=== PATIENT | male | born 1945 | race Caucasian/White ===

== ENCOUNTER 2019-11-26 11:55 | Emergency (ER) | payer OTHER, MEDICARE, SELFPAY ==
[2019-11-26 12:35] VITALS: BP 152/76; PULSE 79; RESP 16; TEMP 36.9; O2SAT 96; BMI 28.2
--- NOTE | 2019-11-26 12:51 | ECG_ITS ---
[facility] Test Date: 2019-11-26 Pat Name: Marbin Funez Department: Room: Gender: Male Relationship Executive: : 1945 Requested By: Gabi Bolivar Order Number: [id number] Rony MD: Vita Ordonez M.D. Measurements Intervals [place] Rate: 76 P: 39 MA: 174 QRS: 68 QRSD: 86 T: 37 QT: 369 QTc: 415 Interpretive Statements SINUS RHYTHM NONSPECIFIC T-WAVE ABNORMALITY No previous ECG available for comparison Electronically Signed On 11-26-2019 19:17:23 CDT by Vita Ordonez M.D. [id number]
[2019-11-26 12:55] VITALS: RESP 18
--- NOTE | 2019-11-26 12:59 | CTR_ITS ---
PROCEDURE INFORMATION: Exam: CT Abdomen And Pelvis With Contrast Exam date and time: 11/26/2019 1:06 PM Age: 74 years old Clinical indication: Abdominal pain; Localized; Prior surgery; Patient HX: Right sided abd pain. History of bladder cancer. ; Additional info: Rlq, rflank pain TECHNIQUE: Imaging protocol: Computed tomography of the abdomen and pelvis with intravenous contrast. Radiation optimization: All CT scans at this facility use at least one of these dose optimization techniques: automated exposure control; mA and/or kV adjustment per patient size (includes targeted exams where dose is matched to clinical indication); or iterative reconstruction. Contrast material: OMNI 300; Contrast volume: 95 ml; Contrast route: INTRAVENOUS (IV); COMPARISON: No relevant prior studies available. RADIATION DOSE METRICS: Total DLP (mGy-cm): 1074.73 FINDINGS: Lungs: Calcified right lower lobe pulmonary granuloma. Mediastinal space: There is thickening of the distal thoracic esophageal wall which can be due to esophagitis. Liver: Calcified granulomas in a nonenlarged liver. Gallbladder and bile ducts: No calcified gallstones, gallbladder wall thickening, or pericholecystic inflammation. No biliary ductal dilation. Pancreas: No pancreatic mass. No peripancreatic inflammation. No pancreatic ductal dilation. Spleen: Calcified granulomas in a nonenlarged spleen. There is an accessory splenule. Adrenals: No adrenal mass. Kidneys and ureters: No hydronephrosis, nephrolithiasis, or renal mass. Mild bilateral renal parenchymal scarring. Stomach and bowel: No bowel obstruction, colitis or diverticulitis. Appendix: The appendix has a normal caliber with no wall thickening. No periappendiceal stranding. Intraperitoneal space: No ascites or pneumoperitoneum. Vasculature: There is coronary artery disease. No aneurysm. Extensive atherosclerotic plaque particularly in the common iliac arteries where there could be significant luminal stenoses. Lymph nodes: No enlarged lymph nodes. Bladder: There is concentric bladder wall thickening which can be due to chronic bladder outlet obstruction, post bladder cancer treatment changes, and/or cystitis. Reproductive: The prostate is enlarged measuring 5.5 cm transversely. Bones/joints: No acute osseous abnormality. Soft tissues: No acute soft tissue abnormality. CT/CT abdomen pelvis w con* [id number] IMPRESSION: 1. No urinary tract calculus or obstruction. 2. Normal appendix. Radiation Dose CTDIVOL = (mGy): DLP = 1074.73 (mGy-cm)
--- NOTE | 2019-11-26 13:01 | W.ED.GENADLT ---
HPI - General Adult General: Chief complaint: General Medical Stated complaint: R thoracic/rib pain Time Seen by Provider: 11/26/19 12:55 Source: patient Mode of arrival: ambulatory Limitations: no limitations History of Present Illness: HPI narrative: 3 days ago patient complains of some right flank pain. Patient has CVA tenderness to the right side radiating into the lower pelvis. No complaints of fever associated symptoms, just pain. Patient [facility] to [facility] who sent him over to the emergency room for emergent evaluation Onset (ago): day(s) (3) Location: abdomen Radiation: flank Severity: moderate Quality: dull Pain Consistency: intermittent Relieving factors: none Exacerbating factors: none Associated symptoms: Reports no associated symptoms; Deny chest pain, dyspnea, nausea, palpitations or vomiting Treatments prior to arrival: none Review of Systems General: Reports: 10 or more systems reviewed and unremarkable except in HPI and below Const: Denies: fever(s) or chills Eyes: Denies: change in vision or blurry vision Card: Denies: chest pain, palpitations or irregular heart rhythm Resp: Denies: dyspnea, productive cough or wheezing GI: Reports: abdominal pain; Denies: nausea or vomiting : Reports: flank pain PFSH ED PFSH: Medical History Bladder cancer PVD (peripheral vascular disease) Type 2 diabetes mellitus with diabetic polyneuropathy Surgical History H/O heart artery stent Family History Other CAD (coronary artery disease) Cancer Diabetes Hyperlipidemia Hypertension Lung disease Denies family history of Clotting disorder Dementia Psychiatric illness Chronic kidney disease (CKD) Suicide Anesthesia complication Bleeding disorder Family history of premature coronary artery disease Stroke Social History Smoking and tobacco status: former smoker Alcohol intake: never Substance/Drug Use: never Physical Exam Const: COMMON NORMALS: patient oriented x3 and alert GENERAL APPEARANCE: cooperative and well kempt HENMT: COMMON NORMALS: normocephalic, atraumatic, external ears normal and TM's normal bilaterally HEAD & SCALP: normocephalic and atraumatic EXTERNAL EAR: Yes external ears normal TYMPANIC MEMBRANE: TM's normal bilaterally MOUTH: Normal oral and palatal mucosa present Eye: COMMON NORMALS: Equal, round and reactive pupils present GENERAL EYE: appearance normal, both eyes and all related structures PUPIL: Yes Equal, round and reactive pupils present and Yes Pupil accommodation reflex normal Neck/C-Spine: COMMON NORMALS: full ROM, no lymphadenopathy, supple, no JVD, Thyroid normal and No carotid bruits GENERAL: Yes trachea midline THYROID: Thyroid normal, no masses and nontender Lymph: LYMPHATIC: no lymphadenopathy noted Chest: CHEST: Yes Symmetrical chest wall rise Resp: COMMON NORMALS: normal respiratory effort and clear to auscultation bilaterally EFFORT & INSPECTION: Yes able to speak in complete sentences AUSCULTATION: clear to auscultation bilaterally Cardio: COMMON NORMALS: no JVD, regular rhythm and No murmurs present (Cardio) PALPATION: normal PMI RHYTHM: regular rhythm GI: COMMON NORMALS: no masses and no bruits INSPECTION: Yes normal to inspection, Yes central obesity, No scar and No striae AUSCULTATION: Yes normoactive bowel sounds PALPATION: Yes Tenderness to palpation present (GI) Details: RLQ, No Guarding due to palpation present (GI), No Rigid due to palpation, No Hernia present and No Rebound tenderness present PERCUSSION: normal to percussion : COMMON NORMALS: Yes no CVA tenderness (Right flank) BLADDER/KIDNEY EXAM: Yes no CVA tenderness (Right flank) Back/Pelvis: COMMON NORMALS: no CVA tenderness (Right flank) GENERAL BACK: No swelling and No tenderness THORACIC SPINE/UPPER BACK: No pain with ROM Extremity: COMMON NORMALS: normal to inspection, no clubbing, cyanosis or edema and no calf tenderness Neuro: COMMON NORMALS: patient oriented x3 and moves all extremities SENSORIUM/ORIENTATION: Yes alert CRANIAL NERVES: Yes CN normal except as noted GAIT: Yes Normal gait present MOTOR EXAM: 5/5 motor strength present throughout Psych: COMMON NORMALS: mental status grossly normal APPEARANCE: Yes well kempt Skin: COMMON NORMALS: no rashes or lesions noted and turgor normal NARRATIVE SKIN EXAM: Normal coloration of skin GENERAL SKIN EXAM: no rashes or lesions noted and turgor normal LESIONS: no lesions RASHES: no rashes TRAUMA: no lacerations or abrasions Course Reevaluation(s): Reevaluation #1: CT of abdomen and lab work unremarkable for acute process, resting patient says that the pain is improved. He cannot recall any excessive activity that he is done other than getting out of bed and twisting. Discussed close follow-up with his [place] physician should he have any change in symptoms. Will trial NSAID and muscle relaxer with follow-up in 1 to 3 days with [place] physician. Time: 14:26 Vital Signs: Vital signs: Vital Signs Temperature 98.5 F 11/26/19 12:35 Pulse Rate 79 11/26/19 12:35 Respiratory Rate 18 11/26/19 12:55 Blood Pressure 152/76 11/26/19 12:35 Pulse Oximetry 96 11/26/19 12:35 [facility] - General Adult Lab Data: Labs: Lab Results 11/26/19 11/26/19 11/26/19 Range/Units 13:05 13:05 13:20 WBC 9.7 (4.0-10.0) 10^3/ uL RBC 4.57 (4.1-5.3) 10^6/u L Hgb 13.7 (11.7-16.6) g/dL Hct 42.9 (42.0-52.0) % MCV 93.9 (80-94) fL MCH 30.0 (28.0-34.0) pg MCHC 31.9 (30.0-36.0) g/dL RDW 13.6 (12.1-15.1) % Plt Count 300 (130-400) 10^3/c mm MPV 9.1 (7.4-10.4) fL Neut % (Auto) 61.5 % Lymph % (Auto) 21.9 % Clayton % (Auto) 7.9 % Eos % (Auto) 7.7 % Baso % (Auto) 0.8 % Neut # (Auto) 5.99 (1.8-7.7) 10^3/u L Lymph # (Auto) 2.1 (0.8-4.8) 10^3/u L Clayton # (Auto) 0.8 (0.2-0.9) 10^3/u L Eos # (Auto) 0.8 (0.0-0.8) 10^3/u L Baso # (Auto) 0.1 (0.0-0.1) 10^3/u L Nucleated RBC % (a uto) 0 % Nucleated RBCs # 0.0 /100WBC Sodium 134 L (136-145) mmol/L Potassium 4.7 (3.5-5.1) mmol/L Chloride 97 L (98-107) mmol/L Carbon Dioxide 29 (22-29) mmol/L Anion Gap 12.7 (5-19) BUN 11 (8-23) mg/dL Creatinine 0.7 (0.7-1.2) mg/dL Glucose 207 H (65-115) mg/dL Calculated Osmolal ity 280 L (285-295) mOsm/k g Calcium 9.8 (8.5-10.5) mg/dL Total Bilirubin 0.3 (0.15-1.2) mg/dL AST 20 (0-40) U/L ALT 22 (0-41) U/L Alkaline Phosphata se 61 (40-130) IU/L Total Protein 7.2 (6.6-8.7) g/dL Albumin 4.7 (3.5-5.2) g/dL Globulin 2.5 (1.3-4.6) g/dL Lipase 26 (13-60) U/L Urine Color Yellow (Yellow) Urine Appearance Clear (CLEAR) Urine pH 7 (5-7) Ur Specific Gravit y 1.010 (1.005-1.030) Urine Protein Neg (Negative) Urine Glucose (UA) 2+ (Normal) Urine Ketones Negative (Negative) Urine Blood Neg (Negative) Urine Nitrate Negative (Negative) Urine Bilirubin Neg (NEGATIVE) Urine Urobilinogen 1 H (Negative) mg/dL Ur Leukocyte Shannan ase Negative (Negative) Urine RBC 0-4 H (0-2) /hpf Urine WBC 0-4 H (0-5) /hpf Ur Squamous Epith Cells 0-4 H (0-5) Urine Bacteria Trace (NONE) Urine Mucus Trace Discharge Plan Discharge Patient Disposition: Home, Self-Care Clinical Impression: Abdominal muscle pain Condition: Stable Prescriptions: New naproxen 250 mg tablet 250 mg PO Q8H PRN (Reason: pain) 5 Days RF: 0 tizanidine 2 mg capsule 2 mg PO Q8H 7 Days Qty: 21 RF: 0 No Action cholecalciferol (vitamin D3) 25 mcg (1,000 unit) capsule 25 mcg PO DAILY RF: 0 acarbose 100 mg tablet 100 mg PO TID RF: 0 metformin 850 mg tablet 850 mg PO TID RF: 0 lisinopril 40 mg tablet 40 mg PO DAILY RF: 0 aspirin 81 mg tablet,delayed release (DR/EC) 81 mg PO DAILY RF: 0 atorvastatin 80 mg tablet 80 mg PO DAILY RF: 0 cilostazol 50 mg tablet 50 mg PO BID RF: 0 Centrum Silver 0.4-300-250 mg-mcg-mcg tablet 1 tab PO DAILY RF: 0 insulin aspart U-100 [Novolog Flexpen U-100 Insulin] 100 unit/mL (3 mL) insulin pen 5 unit SUBCUT TID RF: 0 insulin glargine 100 unit/mL (3 mL) insulin pen 10 unit SUBCUT DAILY RF: 0 (DME) Sole supports Qty: 1 RF: 0 (DME) Custom orthotics See Rx Instructions .Route .MEDSUPPLY Qty: 1 RF: 0 Discharge Orders: Discharge Order (Routine); Ordered 11/26/19 Ordered By: Gabi Bolivar Referrals: Jonas Myers [Family Provider] - 1-3 days Discharge Diet: Advance as tolerated Discharge Activity: Increase activity as tolerated Patient Instructions: Musculoskeletal Pain (ED) Activity Restrictions/Additional Instructions: As discussed utilize rest, heat, and medications as prescribed for discomfort. Follow-up closely with the [place] physician. Coding Level of Care Code ED Scroll Shear Operator for Carmen Fwmiguel a Exam Comprehensive
[2019-11-26 13:13] LABS: Basophils # 0.1 10^3/uL (0.0-0.1); Basophils % 0.8 %; Eosinophils # 0.8 10^3/uL (0.0-0.8); Eosinophils % 7.7 %; Hematocrit 42.9 % (42.0-52.0); Hemoglobin 13.7 g/dL (11.7-16.6); Lymphocytes # 2.1 10^3/uL (0.8-4.8); Lymphocytes % 21.9 %; Mean Corpuscular HGB Conc 31.9 g/dL (30.0-36.0); Mean Corpuscular Volume 93.9 fL (80-94); Mean Platelet Volume 9.1 fL (7.4-10.4); Monocytes # 0.8 10^3/uL (0.2-0.9); Monocytes % 7.9 %; Neutrophils # 5.99 10^3/uL (1.8-7.7); Neutrophils % 61.5 %; Nucleated Red Blood Cells % 0 %; Platelet Count 300 10^3/cmm (130-400); Red Blood Count 4.57 10^6/uL (4.1-5.3); Red Cell Distribution Width 13.6 % (12.1-15.1); White Blood Count 9.7 10^3/uL (4.0-10.0)
[2019-11-26 13:33] LABS: Alanine Aminotransferase 22 U/L (0-41); Albumin Level 4.7 g/dL (3.5-5.2); Alkaline Phosphatase 61 IU/L (40-130); Anion Gap 12.7 (5-19); Aspartate Amino Transferase 20 U/L (0-40); Blood Urea Nitrogen 11 mg/dL (8-23); Calcium 9.8 mg/dL (8.5-10.5); Carbon Dioxide 29 mmol/L (22-29); Chloride 97 mmol/L (98-107); Globulin 2.5 g/dL (1.3-4.6); Glucose 207 mg/dL (65-115); Lipase 26 U/L (13-60); Osmolality Calculated 280 mOsm/kg (285-295); Potassium 4.7 mmol/L (3.5-5.1); Sodium 134 mmol/L (136-145); Total Bilirubin 0.3 mg/dL (0.15-1.2); Total Protein 7.2 g/dL (6.6-8.7)
[2019-11-26] MEDS: iohexol 300 mg/mL 100 mL Btl IV (13:47)
[2019-11-26 14:06] LABS: Bilirubin Urine Neg (NEGATIVE); Blood Urine Neg (Negative); Glucose Urine UA 2+ (Normal); Ketones Urine Negative (Negative); Nitrate Urine Negative (Negative); Protein Urine Neg (Negative); RBC Urine 0-4 /hpf (0-2); Squamous Epithelial Cell Urine 0-4 (0-5); Urine Appearance Clear (CLEAR); Urine Color Yellow (Yellow); Urobilinogen Urine 1 mg/dL (Negative); WBC Urine 0-4 /hpf (0-5); pH Urine 7 (5-7)
[2019-11-26 14:07] LABS: Add Urine Culture? No; Bacteria Urine TRACE; Mucus Urine TRACE
[2019-11-26 14:21] LABS: Leukocyte Esterase Urine Negative (Negative)
== END 2019-11-26 14:41 | disposition home or self-care (01) ==
PROVIDERS: Emergency Provider Nurse Practitioner Family; Family Provider Family Medicine
DX: R10.9 Unspecified abdominal pain (principal); Z79.82 Long term (current) use of aspirin; Z79.4 Long term (current) use of insulin; Z85.51 Personal history of malignant neoplasm of bladder; I73.9 Peripheral vascular disease, unspecified; E11.42 Type 2 diabetes mellitus with diabetic polyneuropathy; Z87.891 Personal history of nicotine dependence
CPT/HCPCS: 12345; 36415; 74177; 80053; 81001; 83690; 85025; 93005; 99281; 99283; Q9967

== ENCOUNTER 2020-02-06 06:19 | Day surgery (SDC) | payer OTHER, MEDICARE, SELFPAY ==
[2020-02-05 11:55] VITALS: BMI 27.8
[2020-02-06] VITALS (8 sets, daily range): BP systolic 148–176; BP diastolic 74–92; PULSE 74–103; RESP 15–20; TEMP 36.2–36.6; O2SAT 94–99
[2020-02-06] MEDS: sodium chloride 0.9% 1,000 ML 30 ML IV (07:06)
[2020-02-06 07:10] LABS: Glucose Point of Care 150 mg/dL (70-110)
--- NOTE | 2020-02-06 08:01 | W.PM.OPSUD ---
Surgery/Procedure H&P Update DATE OF PROCEDURE: February 06, 2020 DATE H&P PERFORMED: 01/30/20 H&P UPDATE INFORMATION: I have reviewed H&P completed within last 30 days, I have examined patient prior to procedure and No changes to prior documentation PREOP DIAGNOSIS: Suspected lung cancer PLANNED PROCEDURE: Bronchoscopy with inspection of the airway, endobronchial ultrasound-guided transbronchial needle aspiration of lymph nodes and navigational bronchoscopy guided transthoracic needle biopsy of right upper lobe lung mass. Operation Date: 02/06/20 08:00 Proposed Procedures elda Rivers(Not Applicable) - Seble Zhu MD
--- NOTE | 2020-02-06 08:13 | ANES.PREANE2 ---
Pre-Anesthetic Assessment Pre-Anesthetic Assessment: Height/Weight: Height 1.78 m Weight 87.997 kg Temp Pulse Resp BP Pulse Ox 97.8 F 74 18 148/82 95 02/06/20 06:45 02/06/20 06:45 02/06/20 06:45 02/06/20 06:45 02/06/20 06:45 Preop Diagnosis: Suspected lung cancer Proposed Procedure: Operation Date: 02/06/20 08:00 Proposed Procedures p Tita(Not Applicable) - Seble Zhu MD Familial anesthetic complications: denies Last intake: Intake Last Liquid Date 02/05/20 Last Liquid Time 23:00 Last Solid Date 02/05/20 Last Solid Time 20:00 Last Intake: 00:00 Social: Social History: Alcohol (quit in ), Tobacco and No tobacco (quit in 2002) Exam: Pre-Anes Outpt Exam: alert, oriented x 3 and clear to auscultation bilaterally Pulmonary: Pulmonary: COPD, Cough and Sleep apnea CV/HEM: CV/HEM: HTN and MS (x2 2012 denies chest pain ) : Comments: bladder cancer treated 13 years Hepatic: Hepatic: None reported GI: GI: GERD Metabolic: Metabolic: DM (IDDM ) Musc/skel: Musc/skel: OA/DJD Neuropsych: Neuropsych: None reported Anesthetic Plan: ASA status: 3 Anesthesia: Anesthesia Evaluation and General Meds/Allergies Current Medications: Current Medications Generic Name Dose Route Start Last Admin Trade Name Freq PRN Reason Stop Dose Admin Sodium Chloride 1,000 mls @ 30 ml s/hr 02/06/20 06:45 02/06/20 07:06 Sodium Chloride 0.9% IV 02/07/20 06:44 30 mls/hr .Q24H LEMUEL Administration PFSH Anesthesia PFSH: Medical History (Updated 01/30/20 @ 15:45 by Seble Zhu MD) Bladder cancer Lung nodule PVD (peripheral vascular disease) Type 2 diabetes mellitus with diabetic polyneuropathy Surgical History H/O heart artery stent Family History Other CAD (coronary artery disease) Cancer Diabetes Hyperlipidemia Hypertension Lung disease Denies family history of Clotting disorder Dementia Psychiatric illness Chronic kidney disease (CKD) Suicide Anesthesia complication Bleeding disorder Family history of premature coronary artery disease Stroke Social History (Updated 01/30/20 @ 15:01 by Arabella Benavides LPN) Smoking and tobacco status: former smoker Quit status (tobacco): has quit using tobacco Year quit tobacco: 06-17 PPD x 45 Years Alcohol intake: never Lives independently: Yes Household members: spouse Marital status: service: Yes Current occupational status: retired History of recent travel: No Current gender identity: Male Data Anesthesia Other Labs: Laboratory Results - last 48 hr 02/06/20 07:02 POC Glucose 150 Cardiac Studies: No Data to Display
[2020-02-06] MEDS: lidocaine 1% INJ 20 mL XX (09:32)
--- NOTE | 2020-02-06 09:55 | PM.OP ---
Operative Report Date of procedure: February 06, 2020 Pre-op Diagnosis: Suspected lung cancer Post-op diagnosis: same Brief History: This is a 74-year-old gentleman coming in for evaluation of lung cancer. The patient has right upper lobe lung mass with mediastinal and hilar lymphadenopathy. Procedure: Name of the procedure: Bronchoscopy with inspection of the airway, endobronchial ultrasound-guided transbronchial needle aspiration of lymph nodes, navigational bronchoscopy guided transthoracic right upper lobe lung mass biopsy, and control of bleeding. Indication: Suspected lung cancer Anesthesia: General anesthesia. Local anesthesia: The manuel in the right and left mainstem bronchi were anesthetized with 1% lidocaine, 3 mL. Description of the procedure: The procedure was explained to the patient and the consent was obtained. The patient was brought to the OR. The patient underwent endotracheal intubation for general anesthesia. Following induction of general anesthesia, the bronchoscope was advanced through the ET tube. The lower trachea appeared to be erythematous, no endotracheal lesion was seen. The manuel was sharp. The manuel, the right and left mainstem bronchi are anesthetized with 1% lidocaine. In a systematic manner bilateral bronchial tree was then examined. The bronchoscope was advanced into the left mainstem bronchus. There was no erythema or areas of cobblestoning. The left upper lobe, lingula and left lower lobe bronchi were examined up to the third subsegmental level and no abnormalities were identified. There is no endobronchial lesion, active bleeding or mucous plug. The bronchoscope was then introduced into the right mainstem bronchus. The right upper lobe, right middle lobe and right lower lobe bronchi were examined up to the third subsegmental level and no abnormalities were identified. There was mucus throughout the airways Using navigational bronchoscopy, transthoracic core needle biopsies were performed from the right upper lobe lung mass. 4 samples are obtained. The endobronchial ultrasound was introduced through the ET tube. Mediastinal and hilar lymphadenopathy was identified with the ultrasound. Fine-needle aspirations were performed from station 4R and 10 R.. Samples: 1. The transthoracic needle biopsy was sent for histopathology. 2. Transbronchial needle aspiration was sent for histopathology and cytology. Complications: There was no immediate complications. The patient was extubated and brought to the PACU in stable condition. There was no increase in the peak airway pressure following the performance of the transthoracic needle biopsy throughout the entire procedure. Chest x-ray: Pending
--- NOTE | 2020-02-06 10:00 | SUR.PHASEI ---
0959- ORAL AIRWAY OUT, SIMPLE MASK IN PLACE AT 10LPM SAT 99%
--- NOTE | 2020-02-06 10:03 | XR_ITS ---
WS: [id number] Portable AP upright chest, 02/06/2020 Clinical Data: post bronchoscopy Comparison: PA and lateral chest, 01/09/2020. Findings: There is a 3.3 cm right upper lobe nodule unchanged. No pneumothorax is seen. The left lung and lower portion right lung have not changed. The heart is normal. Aortic arch shows calcification and tortuosity. The pulmonary vascularity is not increased. No pneumonia is seen. XR/XR chest 1V portable [id number] Impression: 1. No change in right upper lobe nodule. 2. No pneumothorax is seen.
--- NOTE | 2020-02-06 11:00 | ANE.PACU2 ---
Inpatient post-anesthesia follow up: Airway intact: Yes Vital signs: Temperature 97.8 F Pulse Rate 78 Respiratory Rate 18 Blood Pressure 149/74 Pulse Oximetry 95 Oxygen Delivery Me thod Room Air Oxygen Flow Rate 10 Fraction of Inspir ed Oxygen Hydration adequate: Yes Nausea and vomiting: No Pain level: 1 Mental status: Baseline
== END 2020-02-06 11:04 | disposition home or self-care (01) ==
PROVIDERS: PCP Family Medicine; Visit Provider Internal Medicine Critical Care Medicine
PROC: 0BJ08ZZ Inspection of Tracheobronchial Tree, Via Natural or Artificial Opening Endoscopic (ICD-10-PCS; CPT 31622; principal; 2020-02-06 08:00)
DX: R91.8 Other nonspecific abnormal finding of lung field (principal); Z87.891 Personal history of nicotine dependence; J44.9 Chronic obstructive pulmonary disease, unspecified; G47.30 Sleep apnea, unspecified; I10 Essential (primary) hypertension; I25.2 Old myocardial infarction; K21.9 Gastro-esophageal reflux disease without esophagitis; M19.90 Unspecified osteoarthritis, unspecified site; E11.42 Type 2 diabetes mellitus with diabetic polyneuropathy; Z82.49 Family history of ischemic heart disease and other diseases of the circulatory system; Z83.3 Family history of diabetes mellitus; Z79.82 Long term (current) use of aspirin; Z79.4 Long term (current) use of insulin
CPT/HCPCS: 12345; 31625; 31627; 36416; 71045; 82962; 88112; 88173; 88305; J2405; J2710; J3010; J3490; J7030

== ENCOUNTER 2020-02-06 13:04 | Outpatient (CLI) | payer OTHER, SELFPAY ==
--- NOTE | 2020-02-06 | CT_ITS ---
Guided Bronchoscopy Planning CT images; total exam DLP: 875.73 mGy-cm MTDD
== END 2020-02-06 13:05 | disposition home or self-care (01) ==
LOC: CT 13:09
PROVIDERS: PCP Family Medicine; Visit Provider Internal Medicine Critical Care Medicine
DX: R91.1 Solitary pulmonary nodule (principal)
CPT/HCPCS: 77011

== ENCOUNTER 2020-02-25 09:44 | Outpatient (CLI) | payer OTHER, MEDICARE, SELFPAY ==
[2020-02-25 12:20] LABS: Basophils # 0.1 10^3/uL (0.0-0.1); Basophils % 0.9 %; Eosinophils # 0.8 10^3/uL (0.0-0.8); Eosinophils % 9.4 %; Hematocrit 42.3 % (42.0-52.0); Hemoglobin 13.9 g/dL (11.7-16.6); Lymphocytes # 1.7 10^3/uL (0.8-4.8); Lymphocytes % 21.7 %; Mean Corpuscular HGB Conc 32.9 g/dL (30.0-36.0); Mean Corpuscular Hemoglobin 30.2 pg (28.0-34.0); Mean Corpuscular Volume 91.8 fL (80-94); Mean Platelet Volume 8.9 fL (7.4-10.4); Monocytes # 0.8 10^3/uL (0.2-0.9); Monocytes % 9.9 %; Neutrophils # 4.63 10^3/uL (1.8-7.7); Neutrophils % 57.8 %; Nucleated Red Blood Cells % 0 %; Platelet Count 329 10^3/cmm (130-400); Red Blood Count 4.61 10^6/uL (4.1-5.3)
[2020-02-25 12:57] LABS: Prostate Specific Antigen 0.673 ng/mL (0-4)
[2020-02-25 13:08] LABS: Alanine Aminotransferase 22 U/L (0-41); Albumin Level 4.2 g/dL (3.5-5.2); Alkaline Phosphatase 66 IU/L (40-130); Anion Gap 16.6 (5-19); Aspartate Amino Transferase 19 U/L (0-40); Blood Urea Nitrogen 8 mg/dL (8-23); Calcium 9.9 mg/dL (8.5-10.5); Carbon Dioxide 26 mmol/L (22-29); Chloride 95 mmol/L (98-107); Globulin 2.7 g/dL (1.3-4.6); Glucose 256 mg/dL (65-115); Osmolality Calculated 283 mOsm/kg (285-295); Potassium 4.6 mmol/L (3.5-5.1); Sodium 133 mmol/L (136-145); Total Bilirubin 0.4 mg/dL (0.15-1.2); Total Protein 6.9 g/dL (6.6-8.7)
[2020-02-25 13:56] LABS: Cancer Antigen 19 9 18.37 U/mL (0-35); Carcinoembryonic Antigen 138.7 ng/mL (0.0-4.7)
--- NOTE | 2020-02-28 14:17 | ONC CON_ITS ---
Dr. Campbell New Patient Note Patient: Marbin Funez V Unit #: [id number]: [id number] Dicatated By: Nuno Campbell M.D.Date of Visit: Feb 25, 2020 Onc MED New Patient/Consult Referring Physician: Dr. LAUREN TINOCO M.D. History of Present Illness: Mr. Marbin Funez, is a 74-year-old gentleman with a history of COPD went to [facility] on November 26, 2019 with 3-day history of right flank pain, as per patient his pain was radiating to with right pelvis CT scan of abdomen pelvis was done on November 26, 2019 which showed no urinary tract calculus or obstruction normal appendix and calcified right lower lobe pulmonary granuloma and on January 09, 2020 patient had chest x-ray done 5 chest pain and found to have right upper lung mass subsequently underwent CT scan of chest which confirmed right upper lobe lung mass measuring 2.7 x 3.1 cm and lesion was subpleural and also showed mediastinal and hilar lymphadenopathy patient underwent transthoracic needle biopsy on February 06, 2020 and also underwent bronchoscopy and transbronchial needle aspiration of station 4R and 10 R lymph node and 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 Immunohistochemistry were negative for TTF-1, Napsin and p63 and CK 20 so based on this immunoprofile tumor was not overtly designated as a lung primary. Patient has history of coronary artery disease status post stent placement and also has peripheral vascular disease. Patient denies any hemoptysis or hematemesis, denies any weight loss, denies any poor appetite,. Denies any headaches blurred vision or double vision. As per patient he has history of bladder cancer, diagnosed in 2007 or 8 at that time tumor was removed and he was given intravesical therapy. And followed by yearly exam until recently with no evidence of recurrence of disease. Patient also has history of neuropathy involving bilateral feet probably due to diabetes. Past Medical History: Mr. Hanks medical history consists of history of bladder cancer, peripheral neuropathy, peripheral vascular disease, and type II diabetes. Past Surgical History: Mr. Robertss surgical/procedural history consists of stent placment. Medications: Acarbose 1 Tablet (of 100 mg) Oral t.i.d., Aspirin 1 Tablet (of 81 mg) Tablet, enteric coated Oral daily, Atorvastatin Calcium 1 Tablet (of 80 mg) Oral daily, Cholecalciferol 1 Capsule (of 25 mcg ) Oral daily, Cilostazol 1 Tablet (of 50 mg) Oral b.i.d., hydroCHLOROthiazide 1 Tablet (of 25 mg) Oral daily, Insulin Glargine 10 Units (of 100 Units/mL) Subcutaneous daily, Lisinopril 1 Tablet (of 40 mg) Oral daily, metFORMIN HCl 1 Tablet (of 850 mg) Oral t.i.d., Multivitamin 1 Tablet Oral daily, Naproxen 1 Tablet (of 250 mg) Oral q 8 hours PRN, NovoLOG 5 Units (of 100 Units/mL) Subcutaneous t.i.d., tiZANidine HCl 1 Capsule (of 2 mg) Oral q 8 hours PRN Allergies: No Known Allergies. Social History: Mr. Funez is . Mr. Funez quit smoking 12 years ago but had smoked for 45 years. He has no history of drinking. Family History: Mr. Funez's mother is alive. Mr. Funez's father at age 69: lung cancer. Mr. Funez has 1 brother who is : stroke. He has 1 sister who is : stroke. Review Of Symptoms: Constitutional - Appetite is good and weight is stable. No fever, night sweats, or hot flashes. ECOG score is, ENMT - No sinus congestion/drainage. No mouth sores. No sore throat or difficulty swallowing, Hematologic/Lymphatic - No abnormal bruising or bleeding, Respiratory - No shortness of breath. No cough. No pleuritic pain or hemoptysis, Cardiovascular - No angina pain. No palpitations, Gastrointestinal - No nausea or vomiting. No heartburn or acid reflux. No diarrhea or constipation. No blood in the stool or black stools, Genitourinary (M) - No dysuria or hematuria. No urinary frequency. No urgency or incontinence, Musculoskeletal - No joint or bone pain, Neurologic - No headache or dizziness. No numbness or tingling. No other focal neurologic symptoms, Psychiatric - No anxiety or depression. No insomnia. Vital Signs: Performed on Feb 25, 2020 11:03: 0, 28.09, 2.07 sq.m, 70.00 in, 98 %, 77 /min, 18 /min, 140/74 mm(hg), 97.8 F (LOW), and 195.8 lbs (HIGH). Performance Status: 0 - Fully active, able to carry on all predisease activities without restrictions. (ECOG) Physical Examination: ENMT - No mouth sores, no thrush, no jaundice, Respiratory - Lungs are clear to auscultation, Cardiovascular - Regular rate and rhythm of heart, Abdomen - Soft, bowel sounds present, Extremities - No visible edema. Lab/Imaging: Most recent lab results are not available for this patient. 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 Plan: Discussed with patient regarding his disease status and pathology report which showed adenosquamous carcinoma involving right upper lung subpleural mass and mediastinal lymph nodes, biopsy confirmed. But immunohistochemistry being negative for TTF-1 and Napsin, pathologist mentioned that tumor cannot be overtly designated as lung primary. In that case, we will consider work-up to look for other possible primary . so we will proceed with CT PET scan, also consider ENT evaluation and also refer him for EGD. In the meantime we will obtain Port-A-Cath placement and request pathology to check PD-L1 status as well as molecular profiling. And will obtain tumor markers CEA PSA and CA 19???9 As far as cardiac care is concerned, patient can proceed with a cardiac cath and stenting for LAD while he is being worked up We will also obtain records from [facility] regarding his bladder cancer management. And patient will return to clinic after above-mentioned work-up for further discussion and planning. Signed By: Nuno Campbell M.D. <<Signature on File>>
[2020-04-07 14:23] LABS: PD-L1 (Clone 22C3) by IHC BBPL See Report
== END 2020-02-25 09:45 | disposition home or self-care (01) ==
LOC: ONCMED 09:48
PROVIDERS: PCP Family Medicine; Visit Provider Internal Medicine Hematology & Oncology
DX: C80.1 Malignant (primary) neoplasm, unspecified (principal); C78.01 Secondary malignant neoplasm of right lung; C77.1 Secondary and unspecified malignant neoplasm of intrathoracic lymph nodes; E11.42 Type 2 diabetes mellitus with diabetic polyneuropathy; E11.51 Type 2 diabetes mellitus with diabetic peripheral angiopathy without gangrene; I25.10 Atherosclerotic heart disease of native coronary artery without angina pectoris; Z85.51 Personal history of malignant neoplasm of bladder; Z95.5 Presence of coronary angioplasty implant and graft; Z79.4 Long term (current) use of insulin
CPT/HCPCS: 36415; 80053; 82378; 84153; 85025; 86301; 88342; 99203

== ENCOUNTER 2020-03-24 05:52 | Outpatient (CLI) | payer OTHER, MEDICARE, SELFPAY ==
--- NOTE | 2020-03-24 14:00 | ONC FU_ITS ---
Dr. Campbell follow up note Patient: Marbin Funez V Unit #: [id number]: [id number] Dicatated By: Nuno Campbell M.D.Date of Visit:Mar 24, 2020 Onc Med Follow-up/Prog Note History of Present Illness: Mr. Marbin Funez, is a 74-year-old gentleman with a history of COPD went to [facility] on November 26, 2019 with 3-day history of right flank pain, as per patient his pain was radiating to with right pelvis CT scan of abdomen pelvis was done on November 26, 2019 which showed no urinary tract calculus or obstruction normal appendix and calcified right lower lobe pulmonary granuloma and on January 09, 2020 patient had chest x-ray done 5 chest pain and found to have right upper lung mass subsequently underwent CT scan of chest which confirmed right upper lobe lung mass measuring 2.7 x 3.1 cm and lesion was subpleural and also showed mediastinal and hilar lymphadenopathy patient underwent transthoracic needle biopsy on February 06, 2020 and also underwent bronchoscopy and transbronchial needle aspiration of station 4R and 10 R lymph node and 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 Immunohistochemistry were negative for TTF-1, Napsin and p63 and CK 20 so based on this immunoprofile tumor was not overtly designated as a lung primary. Patient has history of coronary artery disease status post stent placement and also has peripheral vascular disease. Patient denies any hemoptysis or hematemesis, denies any weight loss, denies any poor appetite,. Denies any headaches blurred vision or double vision. As per patient he has history of bladder cancer, diagnosed in 2006 or 8 at that time tumor was removed and he was given intravesical therapy. And followed by yearly exam until recently with no evidence of recurrence of disease. Patient also has history of neuropathy involving bilateral feet probably due to peripheral vascular disease As he is being evaluated by a vascular surgeon for intervention stenting or arterial bypass And as per patient, he has progressive coronary artery disease and now stenting is under consideration but it was postponed due to newly diagnosed lung cancer and as patient will require anticoagulation after stenting and chemotherapy-induced thrombocytopenia may increase risk for bleeding while on anticoagulation.. CT PET scan done on March 10, 2020 showed marked increase of metabolic activity in the anterior right upper lung lobe size about 2.6 x 3.2 cm consistent with neoplasia and there is extensive mediastinal lymph node involvement of anterior/prevascular lymph nodes, right paratracheal, precarinal with an index lesion measuring 1.4 x 2.0 cm with SUV of 6.75 and right hilar lymph node. 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 Medications: Acarbose 1 Tablet (of 100 mg) Oral t.i.d., Aspirin 1 Tablet (of 81 mg) Tablet, enteric coated Oral daily, Atorvastatin Calcium 1 Tablet (of 80 mg) Oral daily, Cholecalciferol 1 Capsule (of 25 mcg ) Oral daily, Cilostazol 1 Tablet (of 50 mg) Oral b.i.d., hydroCHLOROthiazide 1 Tablet (of 25 mg) Oral daily, Insulin Glargine 10 Units (of 100 Units/mL) Subcutaneous daily, Lisinopril 1 Tablet (of 40 mg) Oral daily, metFORMIN HCl 1 Tablet (of 850 mg) Oral t.i.d., Multivitamin 1 Tablet Oral daily, Naproxen 1 Tablet (of 250 mg) Oral q 8 hours PRN, NovoLOG 5 Units (of 100 Units/mL) Subcutaneous t.i.d., tiZANidine HCl 1 Capsule (of 2 mg) Oral q 8 hours PRN Allergies: No Known Allergies. Review of Systems: Constitutional - Appetite is good and weight is stable. No fever, night sweats, or hot flashes. Energy level is fair, ENMT - No sinus congestion/drainage. No mouth sores. No sore throat or difficulty swallowing, Hematologic/Lymphatic - Positive for easy bruising/bleeding, Respiratory - No shortness of breath. Positive for cough. No pleuritic pain or hemoptysis, Cardiovascular - No angina pain. No palpitations, Gastrointestinal - No nausea or vomiting. No heartburn or acid reflux. No diarrhea or constipation. No blood in the stool or black stools, Genitourinary (M) - No dysuria or hematuria. No urinary frequency. No urgency or incontinence, Musculoskeletal - Positive for joint and bone pain, Neurologic - No headache or dizziness. No numbness or tingling. No other focal neurologic symptoms, Psychiatric - No anxiety or depression. No insomnia. Vital Signs: Performed on Mar 24, 2020 12:53 Height - 70.00 in Weight - 188.8 lbs (LOW) BSA - 2.04 sq.m BMI - 27.09 Temperature - 98.4 F Pulse - 80 /min Respiration - 20 /min BP - 137/62 mm(hg) O2 Sat - 96 % Pain - 0 Performance Status: 0 - Fully active, able to carry on all predisease activities without restrictions. (ECOG) Physical Examination: ENMT - No mouth sores, no thrush, no jaundice, Respiratory - Lungs are clear to auscultation, Cardiovascular - Regular rate and rhythm of heart, Abdomen - Soft, bowel sounds present, Extremities - No visible edema. Lab/Imaging: Test performed on Feb 25, 2020 12:10 Sodium 133 mmol/L Potassium 4.6 mmol/L Chloride 95 mmol/L CO2 26 mmol/L Anion Gap 16.6 BUN 8 mg/dL Creatinine 0.6 mg/dL Cr Clearance (Est) 133.6300 mL/min Glucose 256 mg/dL Osmolality - Calculated 283 mOsm/kg Calcium 9.9 mg/dL Protein, Total 6.9 g/dL Albumin 4.2 g/dL Globulin 2.7 g/dL Bilirubin, Total 0.4 mg/dL ALT (SGPT) 22 U/L AST (SGOT) 19 U/L Alkaline Phosphatase 66 IU/L WBC 8.0 10 3/uL RBC 4.61 10 6/uL HGB 13.9 g/dL HCT 42.3 % MCV 91.8 fL MCH 30.2 pg MCHC 32.9 g/dL RDW 13.0 % Platelet Count 329 10 3/cmm MPV 8.9 fL Neutrophils 4.63 10 3/uL Lymphocytes 1.7 10 3/uL Monocytes 0.8 10 3/uL Eosinophils 0.8 10 3/uL Basophils 0.1 10 3/uL Neutrophil % 57.8 % Lymphocyte % 21.7 % Monocyte % 9.9 % Eosinophil % 9.4 % Basophils % 0.9 % NRBC % 0 % CA 19-9 18.37 U/mL CEA 138.7 ng/mL PSA 0.673 ng/mL 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 CT scan of abdomen pelvis done in November 2019 showed no evidence of metastatic disease ENT evaluation showed no evidence of head and neck cancer, tumor marker CA 19???9 18.37 CEA [address] PET scan done on March 10, 2020 showed right upper lobe mass measuring 2.6 x 3.2 cm with SUV of 10.30, extensive mediastinal lymphadenopathy along with right hilar lymph node. No distant metastatic disease a single rib, right 10th rib laterally demonstrated on heparin fracture with callus formation. Diabetes and related complication diabetic neuropathyOr vascular as patient has been severe peripheral vascular disease involving bilateral feet Peripheral vascular disease,Now being evaluated by vascular surgeon at [facility] CAD status post stent placement.Due to progressive coronary artery disease coronary artery stenting is under consideration Plan: .Discussed with patient regarding his CT PET scan which showed disease is limited to the thorax, it showed right upper lobe lung mass and extensive mediastinal lymphadenopathy along with right hilar lymphadenopathy and no evidence of distant mets,, based on pathology there was a concern that whether patient has a lung disease as primary or other site so he was referred to ENT for evaluation which showed no evidence of head and neck primary and not being evaluated by GI and scheduled EGD and colonoscopy. His tumor marker were inconclusive CEA is elevated but that can be elevated with adenocarcinoma of the lung and patient has a mixed histology e.g. adenosquamous. And CT PET scan shows no evidence of involvement beyond thorax. Clinically it appears patient has head and neck cancer with right hilar and mediastinal lymph node involvement. We will also consider MRI scan of the brain to complete staging work-up, and refer him to radiation oncology for combined chemoradiation therapy for stage IIIa disease. And as far as coronary artery stenting is concerned, patient can proceed with coronary artery stenting and required postprocedure anticoagulation as we will monitor his blood counts during combined chemoradiation therapy as patient will be treated with weekly chemotherapy and we will be watching his blood counts especially platelets on weekly basis and adjust chemotherapy dose to maintain his platelet count in a decent range to minimize risk of bleeding while on post coronary artery stent anticoagulation. We will also request for Port-A-Cath placement and patient will return to clinic after, MRI scan of the brain, EGD and colonoscopy and radiation evaluation for discussion regarding chemotherapy regimen., Considering neuropathy which could be multifactorial, due to peripheral vascular disease or diabetes At this point will complete Signed By: Nuno Campbell M.D. <<Signature on File>>
== END 2020-03-24 05:53 | disposition home or self-care (01) ==
PROVIDERS: PCP Family Medicine; Visit Provider Internal Medicine Hematology & Oncology
DX: C34.11 Malignant neoplasm of upper lobe, right bronchus or lung (principal); E11.42 Type 2 diabetes mellitus with diabetic polyneuropathy; I73.9 Peripheral vascular disease, unspecified; I25.10 Atherosclerotic heart disease of native coronary artery without angina pectoris; Z95.5 Presence of coronary angioplasty implant and graft; Z79.899 Other long term (current) drug therapy
CPT/HCPCS: 99214

== ENCOUNTER → 2020-03-27 11:44 | Outpatient (BNVA) | payer OTHER, MEDICARE, SELFPAY | PROVIDERS: PCP Family Medicine; Visit Provider Surgery | DX: Z11.59 Encounter for screening for other viral diseases (principal); C34.90 Malignant neoplasm of unspecified part of unspecified bronchus or lung | CPT/HCPCS: 87635 ==

== ENCOUNTER 2020-04-01 06:36 | Day surgery (SDC) | payer OTHER, MEDICARE, SELFPAY ==
[2020-03-31 09:50] VITALS: BMI 27.8
--- NOTE | 2020-04-01 | SCC_ITS ---
Procedure Done: Placement of PowerPort in the left subclavian vein 21.4 seconds of fluoroscopic guidance, for a cumulative dose of 4.13 mGy, was provided to Dr. Garcia by the radiology department. C-arm images of the chest were saved for the patient's permanent record. [facility]
[2020-04-01 06:44] VITALS: BP 148/77; PULSE 82; RESP 16; TEMP 36.5; O2SAT 96
[2020-04-01] MEDS: sodium chloride 0.9% 1,000 ML 30 ML IV (07:03)
[2020-04-01 07:12] LABS: Glucose Point of Care 159 mg/dL (70-110)
--- NOTE | 2020-04-01 07:34 | ANES.PREANE2 ---
Pre-Anesthetic Assessment Pre-Anesthetic Assessment: Height/Weight: Height 1.78 m Weight 87.997 kg Temp Pulse Resp BP Pulse Ox 97.7 F 82 16 148/77 96 04/01/20 06:44 04/01/20 06:44 04/01/20 06:44 04/01/20 06:44 04/01/20 06:44 Preop Diagnosis: Suspected lung cancer Proposed Procedure: Operation Date: 04/01/20 08:10 Proposed Procedures p EGD 08605 [id number] C34.90(Not Applicable) - Stanislav Garcia MD s Portacath Placement(Not Applicable) - Stanislav Garcia MD Familial anesthetic complications: None Was Beta Kan taken within 24 hours: N/A Last intake: Intake Last Liquid Date 03/31/20 Last Liquid Time 21:00 Last Solid Date 03/31/20 Last Solid Time 21:00 Social: Social History: No alcohol and No tobacco Comment: former alchohol use Exam: Pre-Anes Outpt Exam: alert, oriented x 3, clear to auscultation bilaterally and regular rate & rhythm Airway: Cervical ROM: WNL MP: 3 Dentition: Other (missing) Pulmonary: Pulmonary: COPD Comments: Lung cancer CV/HEM: CV/HEM: CAD (stents in heart) and [place] (X2) Comments: Complete RCA occlusion w/ collateral flow from L. Cardiology not proceeding with stent until full work up on whether or not lung cancer is resectable Metabolic: Metabolic: DM Anesthetic Plan: ASA status: 4 Anesthesia: MAC Risk of > 500 ml blood loss (7ml/kg in children): No Meds/Allergies Current Medications: Current Medications Generic Name Dose Route Start Last Admin Trade Name Freq PRN Reason Stop Dose Admin Sodium Chloride 1,000 mls @ 30 ml s/hr 04/01/20 06:45 04/01/20 07:03 Sodium Chloride 0.9% IV 04/02/20 06:44 30 mls/hr .Q24H LEMUEL Administration PFSH Anesthesia PFSH: Medical History Bladder cancer Lung nodule PVD (peripheral vascular disease) Type 2 diabetes mellitus with diabetic polyneuropathy Surgical History (Updated 03/24/20 @ 17:32 by Stanislav Garcia MD) H/O colonoscopy H/O heart artery stent History of bladder surgery History of bronchoscopy History of surgical removal of pilonidal cyst Family History Other CAD (coronary artery disease) Cancer Diabetes Hyperlipidemia Hypertension Lung disease Denies family history of Clotting disorder Dementia Psychiatric illness Chronic kidney disease (CKD) Suicide Anesthesia complication Bleeding disorder Family history of premature coronary artery disease Stroke Social History Smoking and tobacco status: former smoker Quit status (tobacco): has quit using tobacco Year quit tobacco: 06-17 PPD x 45 Years Alcohol intake: never Lives independently: Yes Household members: spouse Marital status: service: Yes Current occupational status: retired History of recent travel: No Current gender identity: Male Data Anesthesia Other Labs: Laboratory Results - last 48 hr 04/01/20 07:07 POC Glucose 159 Cardiac Studies: No Data to Display
--- NOTE | 2020-04-01 08:44 | W.PM.OPSUD ---
Surgery/Procedure H&P Update DATE OF PROCEDURE: April 01, 2020 DATE H&P PERFORMED: 03/24/20 H&P UPDATE INFORMATION: I have reviewed H&P completed within last 30 days, I have examined patient prior to procedure and No changes to prior documentation PREOP DIAGNOSIS: Suspected lung cancer PLANNED PROCEDURE: Operation Date: 04/01/20 08:10 Proposed Procedures p EGD [id number] C34.90(Not Applicable) - Stanislav Garcia MD s Portacath Placement(Not Applicable) - Stanislav Garcia MD
--- NOTE | 2020-04-01 08:58 | SC_ITS ---
WS: [id number] Exam: C-arm FL for CVA [id number] Date/Time of Exam: 04/01/2020 8:58 AM Reason For Exam: intra-oop Limited AP C-arm images of the chest are submitted for evaluation. A left subclavian port has been placed and appears to extend into the superior vena cava however the tip of the port is not visible on these images. Visualized upper left lung appears to be fully expand ed. SC/C-arm FL for CVA [id number] IMPRESSION: 1. Left subclavian port has been placed. The catheter courses in the region of the superior vena cava but the tip of the catheter is out of the [id number].
[2020-04-01] MEDS: lidocaine 1% INJ 20 mL SUBCUT (09:30)
[2020-04-01] MEDS: heparin, porcine 1,000 unit/mL INJ 10 mL 6000 UNIT XX (09:31)
[2020-04-01 09:50] VITALS: BP 141/85; PULSE 95; RESP 18; TEMP 36.4; O2SAT 96
[2020-04-01 10:17] VITALS: BP 124/75; PULSE 88; RESP 18; TEMP 36.4; O2SAT 96
--- NOTE | 2020-04-01 11:27 | P.OP_ITS ---
Operative Report Date of procedure: April 01, 2020 Pre-op Diagnosis: Right lung mass with unknown primary Post-op Diagnosis: Normal EGD Procedure Done: Placement of PowerPort in the left subclavian vein Fluoroscopic guidance and interpretation for placement of catheter Esophagogastroduodenoscopy Pathology: none sent Surgeon: Stanislav Garcia Anesthesia: MAC Condition: stable Disposition: PACU Procedure: The patient was taken to the Operating Room and the chest and neck bilaterally were prepped and draped in a sterile manner after the antibiotic had been administered and shoulder rolls had been placed. A total of 10 mL of 1% lidocaine with 0.5% Marcaine was infiltrated under the clavicle on the left side at the site of the planned entry into the subclavian vein. An introducer needle was then used to access the subclavian vein under the clavicle and after withdrawing blood syringe was removed and a guidewire passed under fluoroscopy into the superior vena cava. The site of the planned port was then marked on the chest and a 15 blade was used to make a 3 cm skin incision this was extended into the subcutaneous tissue using electrocautery and a subcutaneous pocket over the pectoralis fascia was created 2-0 Vicryl suture was used to suture the port to the pectoral fascia in the pocket on 3 sides. The catheter, after having been flushed with hep saline, was attached to the tunneler and a tunnel created between the port site and the subclavian vein entry site. Under fluoroscopy the dilator sheath was passed over the guidewire into the proximal superior vena cava. The inner dilator was removed and the sheath left behind and~ the catheter was introduced through the peel-away sheath with the tip in the superior vena cava. The peel-away sheath was removed. The proximal end of the catheter was cut to the right size and was attached to the port. Using a Dasilva needle the port was accessed, it withdrew blood easily and flushed easily. A final 5cc of heparin was used to flush the PowerPort. The subcutaneous tissue was approximated using interrupted 3-0 Vicryl sutures and the skin at the introducer site and the port site was closed using subcuticular running 4-0 Monocryl sutures. Surgical glue was applied and the patient was stable throughout the procedure. Fluoroscopic guidance and interpretation was performed for introduction of the guidewire in the left subclavian vein, passage of dilator and placement of catheter tip in the distal superior vena cava. The patient was taken to the operating room and placed in left lateral position under MAC and a bite block was placed. A gastroscope was introduced and advance d up to second portion of the duodenum and slowly withdrawn. Duodenum second portion: Normal Duodenal bulb: Normal Stomach Fundus: Normal body: Normal Antrum: Normal Pylorus: Normal Esophagus GE junction: Normal at 40 cm Rest of esophagus: Normal
--- NOTE | 2020-04-01 21:03 | ANE.PACU2 ---
Inpatient post-anesthesia follow up: Airway intact: Yes Vital signs: Temperature 97.6 F Pulse Rate 88 Respiratory Rate 18 Blood Pressure 124/75 Pulse Oximetry 96 Oxygen Delivery Me thod Room Air Oxygen Flow Rate Fraction of Inspir ed Oxygen Hydration adequate: Yes Nausea and vomiting: No Pain level: 2 Mental status: Baseline
== END 2020-04-01 10:34 | disposition home or self-care (01) ==
PROVIDERS: PCP Family Medicine; Visit Provider Surgery
PROC: 0DJ08ZZ Inspection of Upper Intestinal Tract, Via Natural or Artificial Opening Endoscopic (ICD-10-PCS; CPT 43235; principal; 2020-04-01 08:10)
PROC: (CPT 36561; 2020-04-01 08:10)
DX: C34.90 Malignant neoplasm of unspecified part of unspecified bronchus or lung (principal); J44.9 Chronic obstructive pulmonary disease, unspecified; I25.10 Atherosclerotic heart disease of native coronary artery without angina pectoris; Z95.5 Presence of coronary angioplasty implant and graft; I25.2 Old myocardial infarction; E11.9 Type 2 diabetes mellitus without complications; Z82.49 Family history of ischemic heart disease and other diseases of the circulatory system; Z83.3 Family history of diabetes mellitus; Z87.891 Personal history of nicotine dependence; Z79.82 Long term (current) use of aspirin
CPT/HCPCS: 36561; 12345; 36416; 76000; 77001; 82962; C1788; J0690; J1644; J2250; J2704; J3010; J3490; J7030

== ENCOUNTER 2020-04-06 07:47 | Outpatient (CLI) | payer OTHER, SELFPAY ==
--- NOTE | 2020-04-06 07:50 | MR_ITS ---
WS: [id number] MRI BRAIN WITH AND WITHOUT CONTRAST HISTORY: LUNG CA COMPARISON: None available. TECHNIQUE: Multiplanar imaging performed through the brain with Prohance 17 ml's IV. No acute infarcts are seen. García-white matter differentiation is well preserved. Mild cerebral atroph y. There are a few scattered T2 and FLAIR signal hyperintensities in the periventricular white matter and also in the ambrosio from chronic ischemic disease. No susceptibility artifacts or prior lacunar infarcts. Ventricles and extra-axial spaces are normal. Clivus and pituitary gland are normal. Visualized posterior fossa and brainstem are also normal. Postcontrast images are negative for masses or vascular malformations. Dural venous sinuses are normal. Paranasal sinuses: Small air-fluid level in the LEFT maxillary sinus. Mastoid air cells: Normal. Calvarium and scalp: Normal. MR/MR head wo/w con [id number] IMPRESSION: 1. No evidence for metastatic disease to the brain. 2. Mild atrophy and mild chronic microvascular ischemic disease.
== END 2020-04-06 07:48 | disposition home or self-care (01) ==
LOC: ONCMED 07:48
PROVIDERS: PCP Family Medicine; Visit Provider Internal Medicine Hematology & Oncology
DX: C34.11 Malignant neoplasm of upper lobe, right bronchus or lung (principal)
CPT/HCPCS: 70553; A9579

== ENCOUNTER 2020-04-23 05:49 | Outpatient (CLI) | payer OTHER, SELFPAY ==
[2020-04-23 13:02] LABS: Basophils # 0.1 10^3/uL (0.0-0.1); Basophils % 0.9 %; Eosinophils # 0.7 10^3/uL (0.0-0.8); Eosinophils % 7.6 %; Hematocrit 34.4 % (42.0-52.0); Hemoglobin 11.3 g/dL (11.7-16.6); Lymphocytes # 2.2 10^3/uL (0.8-4.8); Lymphocytes % 25.3 %; Mean Corpuscular HGB Conc 32.8 g/dL (30.0-36.0); Mean Corpuscular Hemoglobin 30.3 pg (28.0-34.0); Mean Corpuscular Volume 92.2 fL (80-94); Mean Platelet Volume 9.1 fL (7.4-10.4); Monocytes # 0.8 10^3/uL (0.2-0.9); Monocytes % 9.7 %; Neutrophils # 4.89 10^3/uL (1.8-7.7); Neutrophils % 56.2 %; Nucleated Red Blood Cells % 0 %; Platelet Count 424 10^3/cmm (130-400); Red Blood Count 3.73 10^6/uL (4.1-5.3); Red Cell Distribution Width 13.3 % (12.1-15.1); White Blood Count 8.7 10^3/uL (4.0-10.0)
[2020-04-23 13:20] LABS: Alanine Aminotransferase 33 U/L (0-41); Albumin Level 3.9 g/dL (3.5-5.2); Alkaline Phosphatase 67 IU/L (40-130); Anion Gap 11.4 (5-19); Aspartate Amino Transferase 17 U/L (0-40); Blood Urea Nitrogen 12 mg/dL (8-23); Calcium 9.4 mg/dL (8.5-10.5); Carbon Dioxide 26 mmol/L (22-29); Chloride 99 mmol/L (98-107); Globulin 2.7 g/dL (1.3-4.6); Glucose 146 mg/dL (65-115); Osmolality Calculated 276 mOsm/kg (285-295); Potassium 4.4 mmol/L (3.5-5.1); Sodium 132 mmol/L (136-145); Total Bilirubin 0.4 mg/dL (0.15-1.2); Total Protein 6.6 g/dL (6.6-8.7)
--- NOTE | 2020-04-24 10:22 | ONC FU_ITS ---
Dr. Campbell follow up note Patient: Marbin Funez V Unit #: [id number]: 1945 Dicatated By: Nuno Campbell M.D.Date of Visit:Apr 23, 2020 Onc Med Follow-up/Prog Note History of Present Illness: Mr. Marbin Funez, is a 74-year-old gentleman with a history of COPD went to [facility] on November 26, 2019 with 3-day history of right flank pain, as per patient his pain was radiating to with right pelvis CT scan of abdomen pelvis was done on November 26, 2019 which showed no urinary tract calculus or obstruction normal appendix and calcified right lower lobe pulmonary granuloma and on January 09, 2020 patient had chest x-ray done 5 chest pain and found to have right upper lung mass subsequently underwent CT scan of chest which confirmed right upper lobe lung mass measuring 2.7 x 3.1 cm and lesion was subpleural and also showed mediastinal and hilar lymphadenopathy patient underwent transthoracic needle biopsy on February 06, 2020 and also underwent bronchoscopy and transbronchial needle aspiration of station 4R and 10 R lymph node and 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 Immunohistochemistry were negative for TTF-1, Napsin and p63 and CK 20 so based on this immunoprofile tumor was not overtly designated as a lung primary. Patient has history of coronary artery disease status post stent placement and also has peripheral vascular disease. Patient denies any hemoptysis or hematemesis, denies any weight loss, denies any poor appetite,. Denies any headaches blurred vision or double vision. As per patient he has history of bladder cancer, diagnosed in 2006 or 8 at that time tumor was removed and he was given intravesical therapy. And followed by yearly exam until recently with no evidence of recurrence of disease. Patient also has history of neuropathy involving bilateral feet probably due to peripheral vascular disease was evaluated by a vascular surgeon for intervention stenting or arterial bypass , As per patient bilateral femoral artery stenting was done on April 15, 2020 And on same day he underwent coronary artery stenting done, tolerated procedure very well and he was started on Plavix and aspirin CT PET scan done on March 10, 2020 showed marked increase of metabolic activity in the anterior right upper lung lobe size about 2.6 x 3.2 cm consistent with neoplasia and there is extensive mediastinal lymph node involvement of anterior/prevascular lymph nodes, right paratracheal, precarinal with an index lesion measuring 1.4 x 2.0 cm with SUV of 6.75 and right hilar lymph node. No evidence of distant metastatic disease MRI scan of the brain done on April 06, 2020 showed no evidence of metastatic disease Tumor marker CA 19???9 was 18.37, PSA 0.673, and CEA 138.7., Patient had ENT evaluation done which shows no evidence of head or neck cancer EGD Was done on April 01, 2020, it was normal exam, As per patient he had colonoscopy done last year and it was unremarkable Came for follow-up, denies any specific complaints, recently underwent coronary artery stenting and bilateral femoral artery stenting tolerated procedure well,, no fever chills, no nausea or vomiting, no diarrhea constipation, no chest pain or shortness of breath or palpitation, feel more energetic and lower extremities now with better sensation. Medications: Acarbose 1 Tablet (of 100 mg) Oral t.i.d., Aspirin 1 Tablet (of 81 mg) Tablet, enteric coated Oral daily, Atorvastatin Calcium 1 Tablet (of 80 mg) Oral daily, Cholecalciferol 1 Capsule (of 25 mcg ) Oral daily, Cilostazol 1 Tablet (of 50 mg) Oral b.i.d., Clopidogrel Bisulfate 1 Tablet (of 75 mg) Oral daily, hydroCHLOROthiazide 1 Tablet (of 25 mg) Oral daily, Insulin Glargine 10 Units (of 100 Units/mL) Subcutaneous daily, Lisinopril 1 Tablet (of 40 mg) Oral daily, metFORMIN HCl 1 Tablet (of 850 mg) Oral t.i.d., Multivitamin 1 Tablet Oral daily, Naproxen 1 Tablet (of 250 mg) Oral q 8 hours PRN, NovoLOG 5 Units (of 100 Units/mL) Subcutaneous t.i.d., tiZANidine HCl 1 Capsule (of 2 mg) Oral q 8 hours PRN Allergies: No Known Allergies. Review of Systems: Constitutional - Appetite is good and weight is stable. No fever, night sweats, or hot flashes. Energy level is fair, ENMT - No sinus congestion/drainage. No mouth sores. No sore throat or difficulty swallowing, Hematologic/Lymphatic - Positive for easy bruising/bleeding, Respiratory - No shortness of breath. Positive for cough. No pleuritic pain or hemoptysis, Cardiovascular - No angina pain. No palpitations, Gastrointestinal - No nausea or vomiting. No heartburn or acid reflux. No diarrhea or constipation. No blood in the stool or black stools, Genitourinary (M) - No dysuria or hematuria. No urinary frequency. No urgency or incontinence, Musculoskeletal - Positive for joint and bone pain, Neurologic - No headache or dizziness. No numbness or tingling. No other focal neurologic symptoms, Psychiatric - No anxiety or depression. No insomnia. Vital Signs: Performed on Apr 23, 2020 14:43 Height - 70.00 in Weight - 196.6 lbs (HIGH) BSA - 2.07 sq.m BMI - 28.21 Temperature - 99.0 F (HIGH) Pulse - 91 /min Respiration - 20 /min BP - 126/60 mm(hg) O2 Sat - 96 % Pain - 0 Performance Status: 0 - Fully active, able to carry on all predisease activities without restrictions. (ECOG) Physical Examination: ENMT - No mouth sores, no thrush, no jaundice, Respiratory - Lungs are clear to auscultation, Cardiovascular - Regular rate and rhythm of heart, Abdomen - Soft, bowel sounds present, Extremities - No visible edema. Lab/Imaging: Test performed on Feb 25, 2020 12:10 Sodium 133 mmol/L Potassium 4.6 mmol/L Chloride 95 mmol/L CO2 26 mmol/L Anion Gap 16.6 BUN 8 mg/dL Creatinine 0.6 mg/dL Cr Clearance (Est) 133.6300 mL/min Glucose 256 mg/dL Osmolality - Calculated 283 mOsm/kg Calcium 9.9 mg/dL Protein, Total 6.9 g/dL Albumin 4.2 g/dL Globulin 2.7 g/dL Bilirubin, Total 0.4 mg/dL ALT (SGPT) 22 U/L AST (SGOT) 19 U/L Alkaline Phosphatase 66 IU/L WBC 8.0 10 3/uL RBC 4.61 10 6/uL HGB 13.9 g/dL HCT 42.3 % MCV 91.8 fL MCH 30.2 pg MCHC 32.9 g/dL RDW 13.0 % Platelet Count 329 10 3/cmm MPV 8.9 fL Neutrophils 4.63 10 3/uL Lymphocytes 1.7 10 3/uL Monocytes 0.8 10 3/uL Eosinophils 0.8 10 3/uL Basophils 0.1 10 3/uL Neutrophil % 57.8 % Lymphocyte % 21.7 % Monocyte % 9.9 % Eosinophil % 9.4 % Basophils % 0.9 % NRBC % 0 % CA 19-9 18.37 U/mL CEA 138.7 ng/mL PSA 0.673 ng/mL 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 CT scan of abdomen pelvis done in November 2019 showed no evidence of metastatic disease ENT, EGD evaluation showed no evidence of head and neck cancer, as per Patient, he had colonoscopy done last year it was unremarkable tumor marker CA 19???9 18.37 CEA [address] PET scan done on March 10, 2020 showed right upper lobe mass measuring 2.6 x 3.2 cm with SUV of 10.30, extensive mediastinal lymphadenopathy along with right hilar lymph node. No distant metastatic disease a single rib, right 10th rib laterally demonstrated on heparin fracture with callus formation.MRI scan of the head done on April 06, 2020 showed no evidence of metastatic disease, Clinical stage IIIa Diabetes and related complication ? diabetic neuropathyOr vascular as patient has been severe peripheral vascular disease involving bilateral feet Peripheral vascular disease,Status post bilateral femoral arterial stenting Done on April 15, 2020 CAD status post stent placement.Due to progressive coronary artery disease coronary artery stenting Done on April 15, 2020 Plan: Discussed with patient regarding his labs white blood count 8.7 hemoglobin 11.3 hematocrit 34.4 platelets 424,000 CMP within normal limits except sodium 132 Clinically, patient is doing well with no new signs symptoms of disease progression his staging MRI scan of the brain shows no evidence of metastatic disease. Patient recently underwent coronary artery stenting as well as bilateral femoral artery stenting on April 15, 2020, tolerated procedure well. 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 At this point we will refer him to radiation oncology for evaluation and combined chemoradiation is under consideration, patient is peripheral neuropathy involving lower extremity is somewhat improving after femoral arterial stenting , plan to do weekly carboplatin AUC 2 and Taxol 50 mg/m??? concurrent with radiation therapy, will monitor his blood counts closely especially platelet count as patient is on Plavix and aspirin post coronary artery stenting which was done recently on April 15, 2020. And also monitor his blood sugar and use sliding scale and if there is a problem then will consider switching him to Abraxane as with that patient will need premedication with high-dose steroids. All the side effects possible benefits associated with carboplatin/Taxol including but not limited to bone marrow suppression, hair loss, peripheral neuropathy, nausea, vomiting, allergic reaction especially with Taxol was mentioned further teaching will be done by chemotherapy nurse, will obtain approval from his insurance prior to the treatment and also get Port-A-Cath placement to facilitate chemotherapy administration. Patient will return to clinic 1 week after chemotherapy/radiation initiated with CBC CMP. Signed By: Nuno Campbell M.D. <<Signature on File>>
== END 2020-04-23 05:50 | disposition home or self-care (01) ==
PROVIDERS: PCP Family Medicine; Visit Provider Internal Medicine Hematology & Oncology
DX: C34.11 Malignant neoplasm of upper lobe, right bronchus or lung (principal); C77.1 Secondary and unspecified malignant neoplasm of intrathoracic lymph nodes; E11.51 Type 2 diabetes mellitus with diabetic peripheral angiopathy without gangrene; E11.42 Type 2 diabetes mellitus with diabetic polyneuropathy; I25.10 Atherosclerotic heart disease of native coronary artery without angina pectoris; Z95.5 Presence of coronary angioplasty implant and graft; Z95.828 Presence of other vascular implants and grafts; Z79.02 Long term (current) use of antithrombotics/antiplatelets; Z79.82 Long term (current) use of aspirin
CPT/HCPCS: 80053; 85025; 99214

== ENCOUNTER 2020-05-14 05:44 | Outpatient (RCR) | payer OTHER, SELFPAY ==
--- NOTE | 2020-04-30 14:00 | N.ONRAD NP_ITS ---
Radiation Oncology Consult Patient: Marbin Funez MR#: [id number] : 1945 Attending Physician: Dionisio Cherry M.D. Date of Service: 04/30/2020 Marbin Funez was seen in consultation this afternoon for evaluation regarding possible thoracic radiotherapy for the management of his non-small cell lung cancer. He presented to the [facility] emergency department in November with a 3-day history of right flank pain. An abdominopelvic CT scan obtained on November 26, 2019 failed to identify a urinary tract calculus or obstruction nor evidence of appendicitis. A subsequent chest radiograph ordered at the [facility] demonstrated a right upper lung mass. Follow-up CT defined 2.7 cm x 3.1 cm right upper lobe mass with hilar and mediastinal lymphadenopathy. A bronchoscopy with EBUS was performed [facility] on February 06, 2020. Biopsies of the right upper lobe mass, 4R and 10R lymph node stations diagnosed a CK Chase and CK7 positive while TTF???1 and Napsin negative tumor which were suggestive of a poorly differentiated adenosquamous carcinoma. A PET CT completed on March 10, 2020 confirmed the right upper lobe mass with a maximum SUV of 10.3 and extensive right hilar and mediastinal lymphadenopathy in the anterior/prevascular lymph nodes, paratracheal lymph nodes, and precarinal lymph nodes, respectively with a maximum SUV of 6.8. There was no evidence for distant metastatic disease. An MRI of the brain requisitioned on April 06, 2020 failed to demonstrate CONFIGURATION MANAGER involvement. Additional work-up because of the indeterminate pathology in respect to a primary lung cancer included EGD, flexible nasopharyngoscopy, and tumor markers (CA 19???9, PSA, and CEA) did not identify a primary malignancy. I have been asked to evaluate the patient for definitive thoracic radiotherapy. The patient's past medical history is significant bladder cancer, CAD, insulin-dependent diabetes mellitus, peripheral neuropathy, and peripheral vascular disease. His previous surgical interventions include bronchoscopy, EGD, femoral artery stent placement, Port-A-Cath placement, and PTCA. I have reviewed the patient's medication profile which is available in the electronic medical record. He denied drug allergies. The patient's family history was remarkable for lung cancer (father). The patient was accompanied to this consultation by his . He reported a prior tobacco habit of 2-3 packs per day for 45 years and denied alcohol intake. On review of systems, he did not report any constitutional complaints including fevers of unknown origin or unintentional weight loss. He described left sided neck pain and intermittent epistaxis, but no other head and neck complaints including diplopia, tinnitus, or dysphagia. He did not verbalize any enlarged lymph nodes of the neck, armpit, or groin. He denied any cardiopulmonary symptoms such as angina or palpitations, On gastrointestinal review, he disavowed dyspepsia but attested to nausea with vomiting and chronic constipation. There were no genitourinary complaints such as dysuria or hematuria. He did not report any musculoskeletal complaints including bone pain or muscle weakness. There were no neurological symptoms such as headaches, paresthesias, or seizures. On physical examination, the patient has an ECOG performance status of 1. He was 5 ft 10 in tall and weighed 197 lbs. The temperature was 97.8???F. The blood pressure was 159/75 mmHg. The pulse was 70 bpm and the respiratory rate of was 20. Oxygen saturation was 99% while breathing ambient air. The head was normocephalic and atraumatic. Ophthalmoscopy identified bilateral red reflexes with poor visualization of the fundi. Otoscopy cerumen within the AD. The oral cavity had moist mucous membranes and no oropharyngeal exudate was present. There was no cervical adenopathy or thyromegaly. Normal fremitus was noted with resonance to percussion elicited. Bronchial breath sounds were auscultated in the posterior lung cramer with significant decrement noted within the right lung cramer. Cardiac sounds were regular in rate and rhythm. No auscultated gallops or murmurs were present. No JVD was noted. The abdomen had active bowel sounds. There was no evidence of organomegaly. I did not appreciate any no muscle weakness upon testing nor tenderness to deep palpation along the axial skeleton. Cranial nerves II through XII were intact. There were no sensory deficits. Normal reflexes noted. Gait was normal. In summary, the patient presented to the [facility] emergency department in November with a 3-day history of right flank pain. An abdominopelvic CT scan obtained on November 26, 2019 failed to identify a urinary tract calculus or obstruction nor evidence of appendicitis. A subsequent chest radiograph ordered at the [facility] demonstrated a right upper lung mass. Follow-up CT defined 2.7 cm x 3.1 cm right upper lobe mass with hilar and mediastinal lymphadenopathy. A bronchoscopy with EBUS was performed [employer] on February 06, 2020. Biopsies of the right upper lobe mass, 4R and 10R lymph node stations diagnosed a CK Chase and CK7 positive while TTF???1 and Napsin negative tumor which were suggestive of a poorly differentiated adenosquamous carcinoma. A PET CT completed on March 10, 2020 confirmed the right upper lobe mass with a maximum SUV of 10.3 and extensive right hilar and mediastinal lymphadenopathy in the anterior/prevascular lymph nodes, paratracheal lymph nodes, and precarinal lymph nodes, respectively with a maximum SUV of 6.8. There was no evidence for distant metastatic disease. An MRI of the brain requisitioned on April 06, 2020 failed to demonstrate CONFIGURATION MANAGER involvement. Additional work-up because of the indeterminate pathology in respect to a primary lung cancer included EGD, flexible nasopharyngoscopy, and tumor markers (CA 19???9, PSA, and CEA) did not identify. I discussed with the patient his clinical AJCC stage IIIA (T2aN2) adenosquamous of the lung and the National Comprehensive Cancer Network guidelines for concurrent chemoradiotherapy. I reviewed the classic study RTOG 9410 comparing sequential versus concurrent chemoradiotherapy that demonstrated an overall survival advantage for the concurrent chemoradiotherapy regimen I anticipate a 6 week course of radiotherapy that will be initiated following CT radiotherapy planning. Thoracic radiotherapy toxicities were reviewed. The patient has verbalized understanding would like proceed as recommended. Signed by: Dr. Dionisio Cherry 04/30/2020 1:58:25 PM
--- NOTE | 2020-05-05 | CT_ITS ---
Radiation Therapy Planning CT images; total exam DLP: 685.86 mGy-cm MTDD
[2020-05-11 10:39] LABS: Basophils % 0.2 %; Hematocrit 38.4 % (42.0-52.0); Hemoglobin 12.7 g/dL (11.7-16.6); Lymphocytes # 0.8 10^3/uL (0.8-4.8); Lymphocytes % 7.3 %; Mean Corpuscular HGB Conc 33.1 g/dL (30.0-36.0); Mean Corpuscular Hemoglobin 30.3 pg (28.0-34.0); Mean Corpuscular Volume 91.6 fL (80-94); Mean Platelet Volume 9.2 fL (7.4-10.4); Monocytes # 0.1 10^3/uL (0.2-0.9); Monocytes % 0.5 %; Neutrophils # 10.14 10^3/uL (1.8-7.7); Neutrophils % 91.8 %; Nucleated Red Blood Cells % 0 %; Platelet Count 344 10^3/cmm (130-400); Red Blood Count 4.19 10^6/uL (4.1-5.3); Red Cell Distribution Width 13.2 % (12.1-15.1)
[2020-05-11 11:02] LABS: Alanine Aminotransferase 19 U/L (0-41); Albumin Level 4.4 g/dL (3.5-5.2); Alkaline Phosphatase 61 IU/L (40-130); Anion Gap 17.3 (5-19); Aspartate Amino Transferase 17 U/L (0-40); Blood Urea Nitrogen 11 mg/dL (8-23); Carbon Dioxide 25 mmol/L (22-29); Chloride 93 mmol/L (98-107); Globulin 2.7 g/dL (1.3-4.6); Glucose 312 mg/dL (65-115); Osmolality Calculated 283 mOsm/kg (285-295); Potassium 4.3 mmol/L (3.5-5.1); Sodium 131 mmol/L (136-145); Total Bilirubin 0.3 mg/dL (0.15-1.2); Total Protein 7.1 g/dL (6.6-8.7)
--- NOTE | 2020-05-11 11:08 | ONCRAD TMN_ITS ---
Radiation Oncology Weekly Treatment Management Patient: Marbin Funez MR#: [id number] : 1945 Attending Physician: Dionisio Cherry M.D. Date of Service: 05/11/2020 Referring Physician: Nuno Campbell M.D. 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 The patient has received 2 Gy of a prescribed 60 García with an intensity modulated radiotherapy plan utilizing a step and shoot treatment technique. He has been prescribed carboplatin (AUC 2) and paclitaxel (50 mg/m???) weekly during therapy. Upon review of systems, he denied any pulmonary symptoms. On physical examination, the patient weighed 192 lbs. His temperature was 98.8 ???F with a blood pressure of 138/75 mmHg. The pulse was 106 bpm and his respiratory rate was 16. Oxygen saturation was 96% while breathing ambient air. There was no erythema within the treatment cramer. Auscultation of the posterior lung cramer identified bronchovesicular breath sounds. Continue thoracic radiotherapy as prescribed. Signed by: Dr. Dionisio Cherry 05/11/2020 11:07:16 AM
[2020-05-11] MEDS: sodium chloride 0.9% 250 ML 75 ML IV (11:52)
[2020-05-11] MEDS: famotidine 20 mg/2 mL INJ IVP (11:52)
[2020-05-11] MEDS: diphenhydrAMINE 50 mg/mL SDV 1mL 25 MG IV (11:54)
[2020-05-11] MEDS: palonosetron 0.25 mg/5 mL SDV IV (11:56)
== END 2020-05-14 23:59 | disposition home or self-care (01) ==
LOC: ONCMED 05:44
PROVIDERS: Internal Medicine Hematology & Oncology; PCP Family Medicine; Visit Provider Radiology Radiation Oncology
DX: Z51.0 Encounter for antineoplastic radiation therapy (principal); Z51.11 Encounter for antineoplastic chemotherapy; C34.11 Malignant neoplasm of upper lobe, right bronchus or lung; I25.10 Atherosclerotic heart disease of native coronary artery without angina pectoris; E11.42 Type 2 diabetes mellitus with diabetic polyneuropathy; E11.51 Type 2 diabetes mellitus with diabetic peripheral angiopathy without gangrene; Z85.51 Personal history of malignant neoplasm of bladder; Z79.899 Other long term (current) drug therapy; Z79.4 Long term (current) use of insulin; Z80.1 Family history of malignant neoplasm of trachea, bronchus and lung; Z87.891 Personal history of nicotine dependence
CPT/HCPCS: 77290; 77300; 77301; 77334; 77338; 77386; 77470; 80053; 85025; 96367; 96375; 96413; 96417; 99213; J1100; J1200; J2469; J3490; J7030; J7050; J9045; J9267; Q9967

== ENCOUNTER 2020-05-20 07:59 | Outpatient (CLI) | payer OTHER, SELFPAY ==
--- NOTE | 2020-05-20 08:04 | FL_ITS ---
WS: [id number] Modified barium swallow, 05/20/2020 Clinical Data: Other dysphagia Comparison: None. Fluoroscopy time: 1.4 minutes. Findings: The patient swallowed normally. There is minimal to mild residue with solids but that cleared with do uble swallowing. There is no premature spillage. There is a trace of penetration without aspiration. There is minimal vallecular residue which cleared with swallowing. FL/FL barium swallow modifd [id number] Impression: 1. Trace of penetration with no aspiration. 2. Minimal residue with solids which cleared with swallowing. 3. Minimal vallecular residue which also cleared with swallowing.
== END 2020-05-20 08:00 | disposition home or self-care (01) ==
LOC: RAD 08:00
PROVIDERS: Visit Provider Specialist
DX: C34.91 Malignant neoplasm of unspecified part of right bronchus or lung (principal)
CPT/HCPCS: 74230; 92611

== ENCOUNTER 2020-06-12 05:32 | Outpatient (RCR) | payer OTHER, SELFPAY ==
[2020-05-18 15:39] LABS: Basophils % 0.9 %; Eosinophils # 0.5 10^3/uL (0.0-0.8); Eosinophils % 9.6 %; Hematocrit 34.1 % (42.0-52.0); Hemoglobin 11.4 g/dL (11.7-16.6); Lymphocytes % 20.8 %; Mean Corpuscular HGB Conc 33.4 g/dL (30.0-36.0); Mean Corpuscular Hemoglobin 30.8 pg (28.0-34.0); Mean Corpuscular Volume 92.2 fL (80-94); Mean Platelet Volume 8.9 fL (7.4-10.4); Monocytes # 0.3 10^3/uL (0.2-0.9); Monocytes % 5.4 %; Neutrophils # 2.93 10^3/uL (1.8-7.7); Neutrophils % 62.7 %; Nucleated Red Blood Cells % 0 %; Platelet Count 253 10^3/cmm (130-400); Red Cell Distribution Width 13.2 % (12.1-15.1); White Blood Count 4.7 10^3/uL (4.0-10.0)
[2020-05-18 15:59] LABS: Alanine Aminotransferase 23 U/L (0-41); Albumin Level 3.7 g/dL (3.5-5.2); Alkaline Phosphatase 53 IU/L (40-130); Anion Gap 13.5 (5-19); Aspartate Amino Transferase 18 U/L (0-40); Blood Urea Nitrogen 9 mg/dL (8-23); Calcium 8.9 mg/dL (8.5-10.5); Carbon Dioxide 26 mmol/L (22-29); Chloride 98 mmol/L (98-107); Globulin 2.5 g/dL (1.3-4.6); Glucose 204 mg/dL (65-115); Osmolality Calculated 281 mOsm/kg (285-295); Potassium 4.5 mmol/L (3.5-5.1); Sodium 133 mmol/L (136-145); Total Bilirubin 0.2 mg/dL (0.15-1.2); Total Protein 6.2 g/dL (6.6-8.7)
--- NOTE | 2020-05-19 09:09 | ONC FU_ITS ---
Dr. Campbell follow up note Patient: Marbin Funez V Unit #: [id number]: 1945 Dicatated By: Nuno Campbell M.D.Date of Visit:May 19, 2020 Onc Med Follow-up/Prog Note History of Present Illness: Mr. Marbin Funez, is a 74-year-old gentleman with a history of COPD went to [facility] on November 26, 2019 with 3-day history of right flank pain, as per patient his pain was radiating to with right pelvis CT scan of abdomen pelvis was done on November 26, 2019 which showed no urinary tract calculus or obstruction normal appendix and calcified right lower lobe pulmonary granuloma and on January 09, 2020 patient had chest x-ray done 5 chest pain and found to have right upper lung mass subsequently underwent CT scan of chest which confirmed right upper lobe lung mass measuring 2.7 x 3.1 cm and lesion was subpleural and also showed mediastinal and hilar lymphadenopathy patient underwent transthoracic needle biopsy on February 06, 2020 and also underwent bronchoscopy and transbronchial needle aspiration of station 4R and 10 R lymph node and 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 Immunohistochemistry were negative for TTF-1, Napsin and p63 and CK 20 so based on this immunoprofile tumor was not overtly designated as a lung primary. Patient has history of coronary artery disease status post stent placement and also has peripheral vascular disease. Patient denies any hemoptysis or hematemesis, denies any weight loss, denies any poor appetite,. Denies any headaches blurred vision or double vision. As per patient he has history of bladder cancer, diagnosed in 2006 or 8 at that time tumor was removed and he was given intravesical therapy. And followed by yearly exam until recently with no evidence of recurrence of disease. Patient also has history of neuropathy involving bilateral feet probably due to peripheral vascular disease was evaluated by a vascular surgeon for intervention stenting or arterial bypass , As per patient bilateral femoral artery stenting was done on April 15, 2020 And on same day he underwent coronary artery stenting done, tolerated procedure very well and he was started on Plavix and aspirin CT PET scan done on March 10, 2020 showed marked increase of metabolic activity in the anterior right upper lung lobe size about 2.6 x 3.2 cm consistent with neoplasia and there is extensive mediastinal lymph node involvement of anterior/prevascular lymph nodes, right paratracheal, precarinal with an index lesion measuring 1.4 x 2.0 cm with SUV of 6.75 and right hilar lymph node. No evidence of distant metastatic disease MRI scan of the brain done on April 06, 2020 showed no evidence of metastatic disease Tumor marker CA 19???9 was 18.37, PSA 0.673, and CEA 138.7., Patient had ENT evaluation done which shows no evidence of head or neck cancer EGD Was done on April 01, 2020, it was normal exam, As per patient he had colonoscopy done last year and it was unremarkable Started on combined chemoradiation with weekly carboplatin/Taxol on May 11, 2020 Came for follow-up, denies any specific complaint except off and on indigestion, but no nausea or vomiting, no fever chills, no mouth sores, no diarrhea or constipation, no abdominal pain, no hemoptysis or hematemesis. Started on combined chemoradiation with weekly carboplatin/Taxol last week, has tolerated well so far. Medications: Acarbose 1 Tablet (of 100 mg) Oral t.i.d., Aspirin 1 Tablet (of 81 mg) Tablet, enteric coated Oral daily, Atorvastatin Calcium 1 Tablet (of 80 mg) Oral daily, Cholecalciferol 1 Capsule (of 25 mcg ) Oral daily, Cilostazol 1 Tablet (of 50 mg) Oral b.i.d., Clopidogrel Bisulfate 1 Tablet (of 75 mg) Oral daily, hydroCHLOROthiazide 1 Tablet (of 25 mg) Oral daily, Insulin Glargine 10 Units (of 100 Units/mL) Subcutaneous daily, Lisinopril 1 Tablet (of 40 mg) Oral daily, metFORMIN HCl 1 Tablet (of 850 mg) Oral t.i.d., Multivitamin 1 Tablet Oral daily, Naproxen 1 Tablet (of 250 mg) Oral q 8 hours PRN, NovoLOG 5 Units (of 100 Units/mL) Subcutaneous t.i.d., tiZANidine HCl 1 Capsule (of 2 mg) Oral q 8 hours PRN Allergies: No Known Allergies. Review of Systems: Constitutional - Appetite is good and weight is stable. No fever, night sweats, or hot flashes. Energy level is fair, ENMT - No sinus congestion/drainage. No mouth sores. No sore throat or difficulty swallowing, Hematologic/Lymphatic - Positive for easy bruising/bleeding, Respiratory - No shortness of breath. Negative for cough. No pleuritic pain or hemoptysis, Cardiovascular - No angina pain. No palpitations, Gastrointestinal - No nausea or vomiting. No heartburn or acid reflux. No diarrhea or constipation. No blood in the stool or black stools, Genitourinary (M) - No dysuria or hematuria. No urinary frequency. No urgency or incontinence, Musculoskeletal - Positive for joint and bone pain, Neurologic - No headache or dizziness. No numbness or tingling. No other focal neurologic symptoms, Psychiatric - No anxiety or depression. No insomnia. Vital Signs: Performed on May 19, 2020 08:13 Height - 70.00 in Weight - 195.8 lbs (HIGH) BSA - 2.07 sq.m BMI - 28.09 Temperature - 98.5 F Pulse - 110 /min (HIGH) Respiration - 16 /min BP - 140/65 mm(hg) O2 Sat - 96 % Pain - 0 Performance Status: 0 - Fully active, able to carry on all predisease activities without restrictions. (ECOG) Physical Examination: ENMT - No mouth sores, no thrush, no jaundice, Respiratory - Lungs are clear to auscultation, Cardiovascular - Regular rate and rhythm of heart, Abdomen - Soft, bowel sounds present, Extremities - No visible edema. Lab/Imaging: Test performed on May 18, 2020 15:25 Sodium 133 mmol/L Potassium 4.5 mmol/L Chloride 98 mmol/L CO2 26 mmol/L Anion Gap 13.5 BUN 9 mg/dL Creatinine 0.6 mg/dL Cr Clearance (Est) 134.1800 mL/min Glucose 204 mg/dL Osmolality - Calculated 281 mOsm/kg Calcium 8.9 mg/dL Protein, Total 6.2 g/dL Albumin 3.7 g/dL Globulin 2.5 g/dL Bilirubin, Total 0.2 mg/dL ALT (SGPT) 23 U/L AST (SGOT) 18 U/L Alkaline Phosphatase 53 IU/L WBC 4.7 10 3/uL RBC 3.70 10 6/uL HGB 11.4 g/dL HCT 34.1 % MCV 92.2 fL MCH 30.8 pg MCHC 33.4 g/dL RDW 13.2 % Platelet Count 253 10 3/cmm MPV 8.9 fL Neutrophils 2.93 10 3/uL Lymphocytes 1.0 10 3/uL Monocytes 0.3 10 3/uL Eosinophils 0.5 10 3/uL Basophils 0.0 10 3/uL Neutrophil % 62.7 % Lymphocyte % 20.8 % Monocyte % 5.4 % Eosinophil % 9.6 % Basophils % 0.9 % NRBC % 0 % Test performed on Feb 25, 2020 12:10 CA 19-9 18.37 U/mL CEA 138.7 ng/mL PSA 0.673 ng/mL 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 CT scan of abdomen pelvis done in November 2019 showed no evidence of metastatic disease ENT, EGD evaluation showed no evidence of head and neck cancer, as per Patient, he had colonoscopy done last year it was unremarkable tumor marker CA 19???9 18.37 CEA 138.[address] PET scan done on March 10, 2020 showed right upper lobe mass measuring 2.6 x 3.2 cm with SUV of 10.30, extensive mediastinal lymphadenopathy along with right hilar lymph node. No distant metastatic disease a single rib, right 10th rib laterally demonstrated on heparin fracture with callus formation.MRI scan of the head done on April 06, 2020 showed no evidence of metastatic disease, Clinical stage IIIa Started on combined chemoradiation with weekly carboplatin/Taxol on May 11, 2020 Diabetes and related complication ? diabetic neuropathyOr vascular as patient has been severe peripheral vascular disease involving bilateral feet Peripheral vascular disease,Status post bilateral femoral arterial stenting Done on April 15, 2020 CAD status post stent placement.Due to progressive coronary artery disease coronary artery stenting Done on April 15, 2020 Plan: Discussed with patient regarding his labs white blood count 4.7 hemoglobin 11.4 hematocrit 34.1 platelets 253,000 ANC 2930 CMP within normal limit except glucose 204, sodium 133 Clinically, patient is doing reasonably well, tolerating combined chemoradiation with weekly carboplatin/Taxol well but with expected side effects. His follow-up lab work-up is within desirable range, will proceed with next weekly dose of carboplatin/Taxol today and then he will return to clinic in 1 week with CBC CMP As far as hyperglycemia is concerned patient is on insulin and the he was advised to monitor diet and follow ADA diet and also use sliding scale as recommended. As far as the indigestion is concerned, patient was advised to avoid spicy foods/citrus foods/minimize coffee intake, and be compliant with acid reduction therapy prescribed by PMD.. Signed By: Nuno Campbell M.D. <<Signature on File>>
[2020-05-19] MEDS: palonosetron 0.25 mg/5 mL SDV IV (09:10)
[2020-05-19] MEDS: sodium chloride 0.9% 250 ML 75 ML IV (09:10)
[2020-05-19] MEDS: famotidine 20 mg/2 mL INJ IVP (09:26)
[2020-05-19] MEDS: diphenhydrAMINE 50 mg/mL SDV 1mL 25 MG IV (09:27)
--- NOTE | 2020-05-19 15:30 | ONCRAD TMN_ITS ---
Radiation Oncology Treatment Management Note Patient Name: Marbin Funez Date of : 1945 Date of Service: 05/19/2020 Attending Physician: Dionisio Cherry M.D. 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 The patient has received 12 Gy of a prescribed 60 García with an intensity modulated radiotherapy plan utilizing a step and shoot treatment technique. He has been prescribed carboplatin (AUC 2) and paclitaxel (50 mg/m???) weekly during therapy. Upon review of systems, he denied any pulmonary symptoms. On physical examination, the patient weighed 196 lbs. His temperature was 98. ???F with a blood pressure of 140/65 mmHg. The pulse was 105 bpm and his respiratory rate was 18. Oxygen saturation was 96% while breathing ambient air. There was no erythema within the treatment cramer. Auscultation of the posterior lung cramer identified bronchial breath sounds. Continue thoracic radiotherapy as planned. Signed by: Dr. Dionisio Cherry 05/19/2020 3:28:55 PM
[2020-05-25 15:14] LABS: Basophils % 0.8 %; Eosinophils # 0.3 10^3/uL (0.0-0.8); Eosinophils % 11.3 %; Hemoglobin 11.7 g/dL (11.7-16.6); Lymphocytes # 0.6 10^3/uL (0.8-4.8); Lymphocytes % 22.9 %; Mean Corpuscular HGB Conc 33.4 g/dL (30.0-36.0); Mean Corpuscular Hemoglobin 30.7 pg (28.0-34.0); Mean Corpuscular Volume 91.9 fL (80-94); Mean Platelet Volume 8.9 fL (7.4-10.4); Monocytes # 0.2 10^3/uL (0.2-0.9); Monocytes % 7.1 %; Neutrophils # 1.38 10^3/uL (1.8-7.7); Neutrophils % 57.5 %; Nucleated Red Blood Cells % 0 %; Platelet Count 248 10^3/cmm (130-400); Red Blood Count 3.81 10^6/uL (4.1-5.3); Red Cell Distribution Width 13.1 % (12.1-15.1); White Blood Count 2.4 10^3/uL (4.0-10.0)
[2020-05-25 15:39] LABS: Alanine Aminotransferase 24 U/L (0-41); Albumin Level 3.8 g/dL (3.5-5.2); Alkaline Phosphatase 47 IU/L (40-130); Anion Gap 13.3 (5-19); Aspartate Amino Transferase 16 U/L (0-40); Blood Urea Nitrogen 9 mg/dL (8-23); Calcium 9.3 mg/dL (8.5-10.5); Carbon Dioxide 27 mmol/L (22-29); Chloride 92 mmol/L (98-107); Globulin 2.6 g/dL (1.3-4.6); Glucose 181 mg/dL (65-115); Osmolality Calculated 269 mOsm/kg (285-295); Potassium 4.3 mmol/L (3.5-5.1); Sodium 128 mmol/L (136-145); Total Bilirubin 0.3 mg/dL (0.15-1.2); Total Protein 6.4 g/dL (6.6-8.7)
[2020-05-26 09:25] LABS: Basophils % 0.6 %; Hematocrit 39.6 % (42.0-52.0); Lymphocytes # 0.1 10^3/uL (0.8-4.8); Lymphocytes % 7.4 %; Mean Corpuscular HGB Conc 32.8 g/dL (30.0-36.0); Mean Corpuscular Hemoglobin 30.5 pg (28.0-34.0); Mean Platelet Volume 9.2 fL (7.4-10.4); Monocytes % 1.7 %; Neutrophils # 1.53 10^3/uL (1.8-7.7); Neutrophils % 87.4 %; Nucleated Red Blood Cells % 0 %; Platelet Count 283 10^3/cmm (130-400); Red Blood Count 4.26 10^6/uL (4.1-5.3); Red Cell Distribution Width 13.2 % (12.1-15.1); White Blood Count 1.8 10^3/uL (4.0-10.0)
--- NOTE | 2020-05-26 14:16 | ONC FU_ITS ---
Dr. Campbell follow up note Patient: Marbin Funez V Unit #: [id number]: 1945 Dicatated By: Nuno Campbell M.D.Date of Visit:May 26, 2020 Onc Med Follow-up/Prog Note History of Present Illness: Mr. Marbin Funez, is a 74-year-old gentleman with a history of COPD went to [facility] on November 26, 2019 with 3-day history of right flank pain, as per patient his pain was radiating to with right pelvis CT scan of abdomen pelvis was done on November 26, 2019 which showed no urinary tract calculus or obstruction normal appendix and calcified right lower lobe pulmonary granuloma and on January 09, 2020 patient had chest x-ray done 5 chest pain and found to have right upper lung mass subsequently underwent CT scan of chest which confirmed right upper lobe lung mass measuring 2.7 x 3.1 cm and lesion was subpleural and also showed mediastinal and hilar lymphadenopathy patient underwent transthoracic needle biopsy on February 06, 2020 and also underwent bronchoscopy and transbronchial needle aspiration of station 4R and 10 R lymph node and 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 Immunohistochemistry were negative for TTF-1, Napsin and p63 and CK 20 so based on this immunoprofile tumor was not overtly designated as a lung primary. Patient has history of coronary artery disease status post stent placement and also has peripheral vascular disease. Patient denies any hemoptysis or hematemesis, denies any weight loss, denies any poor appetite,. Denies any headaches blurred vision or double vision. As per patient he has history of bladder cancer, diagnosed in 2006 or 8 at that time tumor was removed and he was given intravesical therapy. And followed by yearly exam until recently with no evidence of recurrence of disease. Patient also has history of neuropathy involving bilateral feet probably due to peripheral vascular disease was evaluated by a vascular surgeon for intervention stenting or arterial bypass , As per patient bilateral femoral artery stenting was done on April 15, 2020 And on same day he underwent coronary artery stenting done, tolerated procedure very well and he was started on Plavix and aspirin CT PET scan done on March 10, 2020 showed marked increase of metabolic activity in the anterior right upper lung lobe size about 2.6 x 3.2 cm consistent with neoplasia and there is extensive mediastinal lymph node involvement of anterior/prevascular lymph nodes, right paratracheal, precarinal with an index lesion measuring 1.4 x 2.0 cm with SUV of 6.75 and right hilar lymph node. No evidence of distant metastatic disease MRI scan of the brain done on April 06, 2020 showed no evidence of metastatic disease Tumor marker CA 19???9 was 18.37, PSA 0.673, and CEA 138.7., Patient had ENT evaluation done which shows no evidence of head or neck cancer EGD Was done on April 01, 2020, it was normal exam, As per patient he had colonoscopy done last year and it was unremarkable Started on combined chemoradiation with weekly carboplatin/Taxol on May 11, 2020 Came for follow-up, denies any specific complaint except off and on heartburn indigestion but responding well to Magic mouthwash. No nausea or vomiting, no hemoptysis or hematemesis, no headaches or blurred vision, no fever chills, tolerating combined chemoradiation with weekly carboplatin/Taxol well, as per patient he is having minor issues with hyperglycemia due to steroids and his PMD is monitoring him and using sliding scale on as-needed basis. Medications: Acarbose 1 Tablet (of 100 mg) Oral t.i.d., Aspirin 1 Tablet (of 81 mg) Tablet, enteric coated Oral daily, Atorvastatin Calcium 1 Tablet (of 80 mg) Oral daily, Cholecalciferol 1 Capsule (of 25 mcg ) Oral daily, Cilostazol 1 Tablet (of 50 mg) Oral b.i.d., Clopidogrel Bisulfate 1 Tablet (of 75 mg) Oral daily, hydroCHLOROthiazide 1 Tablet (of 25 mg) Oral daily, Insulin Glargine 10 Units (of 100 Units/mL) Subcutaneous daily, Lisinopril 1 Tablet (of 40 mg) Oral daily, metFORMIN HCl 1 Tablet (of 850 mg) Oral t.i.d., Multivitamin 1 Tablet Oral daily, Naproxen 1 Tablet (of 250 mg) Oral q 8 hours PRN, NovoLOG 5 Units (of 100 Units/mL) Subcutaneous t.i.d., tiZANidine HCl 1 Capsule (of 2 mg) Oral q 8 hours PRN Allergies: No Known Allergies. Review of Systems: Constitutional - Appetite is good and weight is stable. No fever, night sweats, or hot flashes. Energy level is fair, ENMT - No sinus congestion/drainage. No mouth sores. No sore throat or difficulty swallowing, Hematologic/Lymphatic - Positive for easy bruising/bleeding, Respiratory - No shortness of breath. Negative for cough. No pleuritic pain or hemoptysis, Cardiovascular - No angina pain. No palpitations, Gastrointestinal - No nausea or vomiting. No heartburn or acid reflux. No diarrhea or constipation. No blood in the stool or black stools, Genitourinary (M) - No dysuria or hematuria. No urinary frequency. No urgency or incontinence, Musculoskeletal - Positive for joint and bone pain, Neurologic - No headache or dizziness. No numbness or tingling. No other focal neurologic symptoms, Psychiatric - No anxiety or depression. No insomnia. Vital Signs: Performed on May 26, 2020 08:22 Height - 70.00 in Weight - 191.6 lbs (LOW) BSA - 2.05 sq.m BMI - 27.49 Temperature - 97.6 F (LOW) Pulse - 114 /min (HIGH) Respiration - 18 /min BP - 145/75 mm(hg) (HIGH) O2 Sat - 98 % Pain - 0 Performance Status: 1 - No physically strenuous activity, but ambulatory and able to carry out light or sedentary work (e.g. office work, light house work). (ECOG) Physical Examination: ENMT - No mouth sores, no thrush, no jaundice, Respiratory - Lungs are clear to auscultation, Cardiovascular - Regular rate and rhythm of heart, Abdomen - Soft, bowel sounds present, Extremities - No visible edema. Lab/Imaging: Test performed on May 25, 2020 15:00 Sodium 128 mmol/L Potassium 4.3 mmol/L Chloride 92 mmol/L CO2 27 mmol/L Anion Gap 13.3 BUN 9 mg/dL Creatinine 0.8 mg/dL Cr Clearance (Est) 100.6300 mL/min Glucose 181 mg/dL Osmolality - Calculated 269 mOsm/kg Calcium 9.3 mg/dL Protein, Total 6.4 g/dL Albumin 3.8 g/dL Globulin 2.6 g/dL Bilirubin, Total 0.3 mg/dL ALT (SGPT) 24 U/L AST (SGOT) 16 U/L Alkaline Phosphatase 47 IU/L WBC 2.4 10 3/uL RBC 3.81 10 6/uL HGB 11.7 g/dL HCT 35.0 % MCV 91.9 fL MCH 30.7 pg MCHC 33.4 g/dL RDW 13.1 % Platelet Count 248 10 3/cmm MPV 8.9 fL Neutrophils 1.38 10 3/uL Lymphocytes 0.6 10 3/uL Monocytes 0.2 10 3/uL Eosinophils 0.3 10 3/uL Basophils 0.0 10 3/uL Neutrophil % 57.5 % Lymphocyte % 22.9 % Monocyte % 7.1 % Eosinophil % 11.3 % Basophils % 0.8 % NRBC % 0 % Test performed on Feb 25, 2020 12:10 CA 19-9 18.37 U/mL CEA 138.7 ng/mL PSA 0.673 ng/mL 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 CT scan of abdomen pelvis done in November 2019 showed no evidence of metastatic disease ENT, EGD evaluation showed no evidence of head and neck cancer, as per Patient, he had colonoscopy done last year it was unremarkable tumor marker CA 19???9 18.37 CEA 138.[address] PET scan done on March 10, 2020 showed right upper lobe mass measuring 2.6 x 3.2 cm with SUV of 10.30, extensive mediastinal lymphadenopathy along with right hilar lymph node. No distant metastatic disease a single rib, right 10th rib laterally demonstrated on heparin fracture with callus formation.MRI scan of the head done on April 06, 2020 showed no evidence of metastatic disease, Clinical stage IIIa Started on combined chemoradiation with weekly carboplatin/Taxol on May 11, 2020 Diabetes and related complication ? diabetic neuropathyOr vascular as patient has been severe peripheral vascular disease involving bilateral feet Peripheral vascular disease,Status post bilateral femoral arterial stenting Done on April 15, 2020 CAD status post stent placement.Due to progressive coronary artery disease coronary artery stenting Done on April 15, 2020 Plan: Discussed with patient regarding his labs white blood count 2.4 hemoglobin 11.7 hematocrit 35 platelets 248,000 ANC 180 CMP within normal limit except sodium 128 Clinically, patient is doing reasonably well with no new signs symptom except discomfort/pain in mid chest especially with swallowing but Magic mouthwash does help. And recently underwent barium swallow study which showed trace of penetration with no aspiration minimal residue with solid which clears with swallowing Patient is due for his next weekly dose of carboplatin/Taxol concurrent with radiation therapy today but his labs shows progressive/persistent leukopenia/neutropenia repeat CBC done today showed further drop in white blood count now 1.8k, we will hold his chemotherapy today and consider Neupogen 480 mg subcu daily for 3 days and repeat CBC on if it shows resolution of leukopenia/neutropenia then will consider chemotherapy on Monday morning as patient will take premedication with steroids on night. And we will consider Neupogen 480 mg subcu daily for 3 days after each weekly dose of carboplatin/Taxol to prevent chemotherapy-induced leukopenia/neutropenia and to maintain chemotherapy schedule during radiation therapy. Signed By: Nuno Campbell M.D. <<Signature on File>>
[2020-05-27 14:53] LABS: Add Urine Microscopic? NO
[2020-05-27 15:03] LABS: Urine Appearance Clear (CLEAR); Urine Color Yellow (Yellow)
[2020-05-27 15:04] LABS: Bilirubin Urine Neg (Negative); Blood Urine Neg (Negative); Glucose Urine UA Trace (Normal); Ketones Urine Negative (Negative); Leukocyte Esterase Urine Negative (Negative); Nitrate Urine Negative (Negative); Protein Urine Neg (Negative); Urobilinogen Urine Norm (Negative); pH Urine 5 (5-7)
--- NOTE | 2020-05-27 15:46 | ONCRAD TMN_ITS ---
Radiation Oncology Weekly Treatment Management Patient Name: Marbin Funez Date of : 1945 Date of Service: 05/27/2020 Attending Physician: Dionisio Cherry M.D. 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 The patient has received 24 Gy of a prescribed 60 García with an intensity modulated radiotherapy plan utilizing a step and shoot treatment technique. He has been prescribed carboplatin (AUC 2) and paclitaxel (50 mg/m???) weekly during therapy. Upon review of systems, he denied any pulmonary symptoms. On physical examination, the patient weighed 194 lbs. His temperature was 98.5 ???F with a blood pressure of 139/76 mmHg. The pulse was 97 bpm and his respiratory rate was 18. Oxygen saturation was 98% while breathing ambient air. There was no erythema within the treatment cramer. Auscultation of the posterior lung cramer identified bronchovesicular breath sounds. Continue thoracic radiotherapy as prescribed. Signed by: Dr. Dionisio Cherry 05/27/2020 3:45:01 PM
[2020-05-28 14:46] LABS: Basophils # 0.1 10^3/uL (0.0-0.1); Basophils % 1.1 %; Eosinophils # 0.2 10^3/uL (0.0-0.8); Eosinophils % 1.9 %; Hematocrit 34.6 % (42.0-52.0); Hemoglobin 11.6 g/dL (11.7-16.6); Lymphocytes # 0.7 10^3/uL (0.8-4.8); Lymphocytes % 8.6 %; Mean Corpuscular HGB Conc 33.5 g/dL (30.0-36.0); Mean Corpuscular Hemoglobin 31.1 pg (28.0-34.0); Mean Corpuscular Volume 92.8 fL (80-94); Mean Platelet Volume 8.7 fL (7.4-10.4); Monocytes % 11.7 %; Neutrophils # 5.39 10^3/uL (1.8-7.7); Nucleated Red Blood Cells % 0 %; Platelet Count 233 10^3/cmm (130-400); Red Blood Count 3.73 10^6/uL (4.1-5.3); Red Cell Distribution Width 13.5 % (12.1-15.1); White Blood Count 8.3 10^3/uL (4.0-10.0)
[2020-05-28 15:24] LABS: Alanine Aminotransferase 23 U/L (0-41); Albumin Level 3.9 g/dL (3.5-5.2); Alkaline Phosphatase 55 IU/L (40-130); Aspartate Amino Transferase 16 U/L (0-40); Blood Urea Nitrogen 9 mg/dL (8-23); Calcium 9.7 mg/dL (8.5-10.5); Carbon Dioxide 30 mmol/L (22-29); Chloride 88 mmol/L (98-107); Globulin 2.4 g/dL (1.3-4.6); Glucose 162 mg/dL (65-115); Osmolality Calculated 266 mOsm/kg (285-295); Sodium 127 mmol/L (136-145); Total Bilirubin 0.3 mg/dL (0.15-1.2); Total Protein 6.3 g/dL (6.6-8.7)
[2020-05-28 16:19] LABS: Slide Review Slide Review Perform
[2020-05-28 16:24] LABS: Quest SARS-CoV-2 RNA NOT DETECTED (NOT DETECTED)
[2020-05-29] MEDS: famotidine 20 mg/2 mL INJ IVP (08:49)
[2020-05-29] MEDS: diphenhydrAMINE 50 mg/mL SDV 1mL 25 MG IV (08:51)
[2020-05-29] MEDS: palonosetron 0.25 mg/5 mL SDV IV (08:53)
[2020-05-29] MEDS: sodium chloride 0.9% 250 ML 75 ML IV (08:53)
--- NOTE | 2020-06-02 15:55 | ONCRAD TMN_ITS ---
Radiation Oncology Weekly Treatment Management Patient Name: Marbin Funez Date of : 1945 Date of Service: 06/02/2020 Attending Physician: Dionisio Cherry M.D. 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 The patient has received 32 Gy of a prescribed 60 García with an intensity modulated radiotherapy plan utilizing a step and shoot treatment technique. He has been prescribed carboplatin (AUC 2) and paclitaxel (50 mg/m???) weekly during therapy. Upon review of systems, he denied any pulmonary symptoms. On physical examination, the patient weighed 188 lbs. His temperature was 98.8 ???F with a blood pressure of 112/70 mmHg. The pulse was 98 bpm and his respiratory rate was 18. Oxygen saturation was 97% while breathing ambient air. There was no erythema within the treatment cramer. Auscultation of the posterior lung cramer identified bilateral basilar rales. Continue thoracic radiotherapy as planned. Signed by: Dr. Dionisio Cherry 06/02/2020 3:55:40 PM
[2020-06-03 15:17] LABS: Basophils # 0.1 10^3/uL (0.0-0.1); Basophils % 1.2 %; Eosinophils # 0.1 10^3/uL (0.0-0.8); Eosinophils % 1.9 %; Hemoglobin 11.2 g/dL (11.7-16.6); Lymphocytes # 0.4 10^3/uL (0.8-4.8); Lymphocytes % 5.8 %; Mean Corpuscular HGB Conc 32.9 g/dL (30.0-36.0); Mean Corpuscular Hemoglobin 30.9 pg (28.0-34.0); Mean Corpuscular Volume 93.9 fL (80-94); Mean Platelet Volume 9.5 fL (7.4-10.4); Monocytes # 0.4 10^3/uL (0.2-0.9); Monocytes % 5.3 %; Neutrophils # 5.03 10^3/uL (1.8-7.7); Neutrophils % 74.3 %; Nucleated Red Blood Cells % 0 %; Platelet Count 96 10^3/cmm (130-400); Red Blood Count 3.62 10^6/uL (4.1-5.3); Red Cell Distribution Width 13.9 % (12.1-15.1); White Blood Count 6.8 10^3/uL (4.0-10.0)
[2020-06-03 16:49] LABS: Slide Review Slide Review Perform
[2020-06-08 08:44] LABS: Basophils # 0.1 10^3/uL (0.0-0.1); Basophils % 1.7 %; Eosinophils # 0.1 10^3/uL (0.0-0.8); Eosinophils % 3.1 %; Hematocrit 33.7 % (42.0-52.0); Hemoglobin 11.1 g/dL (11.7-16.6); Lymphocytes # 0.3 10^3/uL (0.8-4.8); Lymphocytes % 9.7 %; Mean Corpuscular HGB Conc 32.9 g/dL (30.0-36.0); Mean Corpuscular Hemoglobin 30.9 pg (28.0-34.0); Mean Corpuscular Volume 93.9 fL (80-94); Mean Platelet Volume 9.6 fL (7.4-10.4); Monocytes # 0.6 10^3/uL (0.2-0.9); Monocytes % 17.3 %; Neutrophils # 2.32 10^3/uL (1.8-7.7); Neutrophils % 65.9 %; Nucleated Red Blood Cells % 0 %; Platelet Count 140 10^3/cmm (130-400); Red Blood Count 3.59 10^6/uL (4.1-5.3); Red Cell Distribution Width 13.9 % (12.1-15.1); White Blood Count 3.5 10^3/uL (4.0-10.0)
[2020-06-08 09:03] LABS: Alanine Aminotransferase 23 U/L (0-41); Albumin Level 3.7 g/dL (3.5-5.2); Alkaline Phosphatase 66 IU/L (40-130); Anion Gap 15.9 (5-19); Aspartate Amino Transferase 17 U/L (0-40); Blood Urea Nitrogen 9 mg/dL (8-23); Calcium 9.1 mg/dL (8.5-10.5); Carbon Dioxide 26 mmol/L (22-29); Chloride 96 mmol/L (98-107); Glucose 184 mg/dL (65-115); Osmolality Calculated 281 mOsm/kg (285-295); Potassium 3.9 mmol/L (3.5-5.1); Sodium 134 mmol/L (136-145); Total Bilirubin 0.3 mg/dL (0.15-1.2)
--- NOTE | 2020-06-08 14:34 | ONC FU_ITS ---
Dr. Campbell follow up note Patient: Marbin Funez V Unit #: [id number]: 1945 Dicatated By: Nuno Campbell M.D.Date of Visit:Jun 08, 2020 Onc Med Follow-up/Prog Note History of Present Illness: Mr. Marbin Funez, is a 74-year-old gentleman with a history of COPD went to [facility] on November 26, 2019 with 3-day history of right flank pain, as per patient his pain was radiating to with right pelvis CT scan of abdomen pelvis was done on November 26, 2019 which showed no urinary tract calculus or obstruction normal appendix and calcified right lower lobe pulmonary granuloma and on January 09, 2020 patient had chest x-ray done 5 chest pain and found to have right upper lung mass subsequently underwent CT scan of chest which confirmed right upper lobe lung mass measuring 2.7 x 3.1 cm and lesion was subpleural and also showed mediastinal and hilar lymphadenopathy patient underwent transthoracic needle biopsy on February 06, 2020 and also underwent bronchoscopy and transbronchial needle aspiration of station 4R and 10 R lymph node and 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 Immunohistochemistry were negative for TTF-1, Napsin and p63 and CK 20 so based on this immunoprofile tumor was not overtly designated as a lung primary. Patient has history of coronary artery disease status post stent placement and also has peripheral vascular disease. Patient denies any hemoptysis or hematemesis, denies any weight loss, denies any poor appetite,. Denies any headaches blurred vision or double vision. As per patient he has history of bladder cancer, diagnosed in 2006 or 8 at that time tumor was removed and he was given intravesical therapy. And followed by yearly exam until recently with no evidence of recurrence of disease. Patient also has history of neuropathy involving bilateral feet probably due to peripheral vascular disease was evaluated by a vascular surgeon for intervention stenting or arterial bypass , As per patient bilateral femoral artery stenting was done on April 15, 2020 And on same day he underwent coronary artery stenting done, tolerated procedure very well and he was started on Plavix and aspirin CT PET scan done on March 10, 2020 showed marked increase of metabolic activity in the anterior right upper lung lobe size about 2.6 x 3.2 cm consistent with neoplasia and there is extensive mediastinal lymph node involvement of anterior/prevascular lymph nodes, right paratracheal, precarinal with an index lesion measuring 1.4 x 2.0 cm with SUV of 6.75 and right hilar lymph node. No evidence of distant metastatic disease MRI scan of the brain done on April 06, 2020 showed no evidence of metastatic disease Tumor marker CA 19???9 was 18.37, PSA 0.673, and CEA 138.7., Patient had ENT evaluation done which shows no evidence of head or neck cancer EGD Was done on April 01, 2020, it was normal exam, As per patient he had colonoscopy done last year and it was unremarkable Started on combined chemoradiation with weekly carboplatin/Taxol on May 11, 2020 Came for follow-up, denies any specific complaint except painful swallowing not being completely controlled with narcotics prescribed by radiation oncology. But no nausea or vomiting no diarrhea or constipation, no fever chills, tolerating combined chemoradiation with weekly carboplatin/Taxol well otherwise Medications: Acarbose 1 Tablet (of 100 mg) Oral t.i.d., Aspirin 1 Tablet (of 81 mg) Tablet, enteric coated Oral daily, Atorvastatin Calcium 1 Tablet (of 80 mg) Oral daily, Cholecalciferol 1 Capsule (of 25 mcg ) Oral daily, Cilostazol 1 Tablet (of 50 mg) Oral b.i.d., Clopidogrel Bisulfate 1 Tablet (of 75 mg) Oral daily, hydroCHLOROthiazide 1 Tablet (of 25 mg) Oral daily, Insulin Glargine 10 Units (of 100 Units/mL) Subcutaneous daily, Lisinopril 1 Tablet (of 40 mg) Oral daily, metFORMIN HCl 1 Tablet (of 850 mg) Oral t.i.d., Multivitamin 1 Tablet Oral daily, Naproxen 1 Tablet (of 250 mg) Oral q 8 hours PRN, NovoLOG 5 Units (of 100 Units/mL) Subcutaneous t.i.d., tiZANidine HCl 1 Capsule (of 2 mg) Oral q 8 hours PRN Allergies: No Known Allergies. Review of Systems: Constitutional - Appetite is good and weight is stable. No fever, night sweats, or hot flashes. Energy level is fair, ENMT - No sinus congestion/drainage. No mouth sores. No sore throat or difficulty swallowing, Hematologic/Lymphatic - Positive for easy bruising/bleeding, Respiratory - No shortness of breath. Negative for cough. No pleuritic pain or hemoptysis, Cardiovascular - No angina pain. No palpitations, Gastrointestinal - No nausea or vomiting. No heartburn or acid reflux. No diarrhea or constipation. No blood in the stool or black stools, Genitourinary (M) - No dysuria or hematuria. No urinary frequency. No urgency or incontinence, Musculoskeletal - Positive for joint and bone pain, Neurologic - No headache or dizziness. No numbness or tingling. No other focal neurologic symptoms, Psychiatric - No anxiety or depression. No insomnia. Vital Signs: Performed on Jun 08, 2020 10:41 Height - 70.00 in Weight - 187.8 lbs (LOW) BSA - 2.03 sq.m BMI - 26.95 Temperature - 97.4 F (LOW) Pulse - 99 /min Respiration - 18 /min BP - 126/67 mm(hg) O2 Sat - 98 % Pain - 3 Fatigue - 6 Performance Status: 1 - No physically strenuous activity, but ambulatory and able to carry out light or sedentary work (e.g. office work, light house work). (ECOG) Physical Examination: ENMT - No mouth sores, no thrush, no jaundice, Respiratory - Lungs are clear to auscultation, Cardiovascular - Regular rate and rhythm of heart, Abdomen - Soft, bowel sounds Present, Extremities - No visible edema. Lab/Imaging: Test performed on Jun 08, 2020 12:43 Creatinine 0.6 mg/dL Cr Clearance (Est) 134.18 mL/min Test performed on May 28, 2020 14:35 Sodium 127 mmol/L Potassium 4.0 mmol/L Chloride 88 mmol/L CO2 30 mmol/L Anion Gap 13.0 BUN 9 mg/dL Glucose 162 mg/dL Osmolality - Calculated 266 mOsm/kg Calcium 9.7 mg/dL Protein, Total 6.3 g/dL Albumin 3.9 g/dL Globulin 2.4 g/dL Bilirubin, Total 0.3 mg/dL ALT (SGPT) 23 U/L AST (SGOT) 16 U/L Alkaline Phosphatase 55 IU/L WBC 8.3 10 3/uL RBC 3.73 10 6/uL HGB 11.6 g/dL HCT 34.6 % MCV 92.8 fL MCH 31.1 pg MCHC 33.5 g/dL RDW 13.5 % Platelet Count 233 10 3/cmm MPV 8.7 fL Neutrophils 5.39 10 3/uL Lymphocytes 0.7 10 3/uL Monocytes 1.0 10 3/uL Eosinophils 0.2 10 3/uL Basophils 0.1 10 3/uL Neutrophil % 65.0 % Lymphocyte % 8.6 % Monocyte % 11.7 % Eosinophil % 1.9 % Basophils % 1.1 % NRBC % 0 % CBC Slide Review Slide Review Perform SLIDE REVIEW AGREES WITH AUTOMATED RESULT Test performed on May 27, 2020 14:45 SARS-CoV-2 RNA (COVID-19) NOT DETECTED A Not Detected (negative) test result for this test means that SARS- CoV-2 RNA was not present in the specimen above the limit of detection. A negative result does not rule out the possibility of COVID-19 and should not be used as the sole basis for treatment or patient management decisions. If COVID-19 is still suspected, based on exposure history together with other clinical findings, re-testing should be considered in consultation with public health authorities. Laboratory test results should always be considered in the context of clinical observations and epidemiological data in making a final diagnosis and patient management decisions. Please review the Fact Sheets and FDA authorized labeling available for health care providers and patients using the following websites: https://[email or web address]/home/Covid-19/HCP/NAAT/fact-sheet2 https://[email or web address]/home/Covid-19/Patients/NAAT/ fact-sheet2 This test has been authorized by the FDA under an Emergency Use Authorization (EUA) for use by authorized laboratories. Due to the current public health emergency, [facility] is receiving a high volume of samples from a wide variety of swabs and media for COVID-19 testing. In order to serve patients during this public health crisis, samples from appropriate clinical sources are being tested. Negative test results derived from specimens received in non-commercially manufactured viral collection and transport media, or in media and sample collection kits not yet authorized by FDA for COVID-19 testing should be cautiously evaluated and the patient potentially subjected to extra precautions such as additional clinical monitoring, including collection of an additional specimen. Methodology: Nucleic Acid Amplification Test (NAAT) includes RT-PCR or TMA Additional information about COVID-19 can be found at the [facility] website: [email or web address]. THIS TEST WAS PERFORMED AT: [facility] [address] [place] [phone] VISHNU RODRIGUEZ DO,MPH Test performed on May 27, 2020 14:36 Ua Color Yellow Ua Appearance Clear Ua Glucose Trace Ua Bilirubin Neg Ua Ketones Negative Ua Specific [place] 1.020 Ua Blood Neg Ua pH 5 Ua Protein Neg Ua Nitrites Negative Ua Leukocyte Esterase Negative Test performed on May 26, 2020 00:00 Manual Diff DUPLICATE TEST ST Test performed on Feb 25, 2020 12:10 CA 19-9 18.37 U/mL CEA 138.7 ng/mL PSA 0.673 ng/mL 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 CT scan of abdomen pelvis done in November 2019 showed no evidence of metastatic disease ENT, EGD evaluation showed no evidence of head and neck cancer, as per Patient, he had colonoscopy done last year it was unremarkable tumor marker CA 19???9 18.37 CEA 138.[address] PET scan done on March 10, 2020 showed right upper lobe mass measuring 2.6 x 3.2 cm with SUV of 10.30, extensive mediastinal lymphadenopathy along with right hilar lymph node. No distant metastatic disease a single rib, right 10th rib laterally demonstrated on heparin fracture with callus formation.MRI scan of the head done on April 06, 2020 showed no evidence of metastatic disease, Clinical stage IIIa Started on combined chemoradiation with weekly carboplatin/Taxol on May 11, 2020 Diabetes and related complication ? diabetic neuropathyOr vascular as patient has been severe peripheral vascular disease involving bilateral feet Peripheral vascular disease,Status post bilateral femoral arterial stenting Done on April 15, 2020 CAD status post stent placement.Due to progressive coronary artery disease coronary artery stenting Done on April 15, 2020 Plan: Discussed with patient regarding his labs white blood count 5 hemoglobin 11.1 hematocrit 33.7 platelets 140,000 compared to 96,000 on June 03, 2020 ANC 2320 CMP within normal limit except glucose 134 Clinically, patient doing reasonably well, now in mild to moderate distress due to radiation-induced esophagitis, complaining of painful swallowing not being completely controlled with the narcotics, at this point will consider Magic mouthwash patient was advised to try before meals and as needed as oral Xylocaine contained in Magic mouthwash, may improve his symptoms. Patient was advised to maintain hydration and his lab work-up shows improvement in his mild thrombocytopenia and also ANC in a desirable range so patient will take his premedication tonight and proceed with weekly carboplatin/Taxol in the morning with Neupogen support Signed By: Nuno Campbell M.D. <<Signature on File>>
[2020-06-08 15:52] LABS: Globulin 2.5 g/dL (1.3-4.6); Total Protein 6.2 g/dL (6.6-8.7)
[2020-06-09] MEDS: sodium chloride 0.9% 250 ML 75 ML IV (10:42)
[2020-06-09] MEDS: famotidine 20 mg/2 mL INJ IVP (10:42)
[2020-06-09] MEDS: palonosetron 0.25 mg/5 mL SDV IV (10:44)
[2020-06-09] MEDS: sodium chloride 0.9% (100 ml) 100 ML 75 ML (11:04)
[2020-06-09] MEDS: diphenhydrAMINE 50 mg/mL SDV 1mL 25 MG IV (11:04)
--- NOTE | 2020-06-09 14:42 | ONCRAD TMN_ITS ---
Radiation Oncology Weekly Treatment Management Patient Name: Marbin Funez Date of : 1945 Date of Service: 06/09/2020 Attending Physician: Dionisio Cherry M.D. 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 The patient has received 40 Gy of a prescribed 60 García with an intensity modulated radiotherapy plan utilizing a step and shoot treatment technique. He has been prescribed carboplatin (AUC 2) and paclitaxel (50 mg/m???) weekly during therapy. Upon review of systems, he denied any pulmonary symptoms. On physical examination, the patient weighed 192 lbs. His temperature was 98.6 ???F with a blood pressure of 144/83 mmHg. The pulse was 115 bpm and his respiratory rate was 18. Oxygen saturation was 97% while breathing ambient air. There was no erythema within the treatment cramer. Auscultation of the posterior lung cramer identified bronchovesicular breath sounds. Continue thoracic radiotherapy as prescribed. Signed by: Dr. Dionisio Cherry 06/09/2020 2:40:40 PM
[2020-06-12 09:21] LABS: Basophils % 0.1 %; Eosinophils # 0.2 10^3/uL (0.0-0.8); Eosinophils % 0.7 %; Hematocrit 34.6 % (42.0-52.0); Hemoglobin 11.2 g/dL (11.7-16.6); Lymphocytes # 0.3 10^3/uL (0.8-4.8); Lymphocytes % 1.2 %; Mean Corpuscular HGB Conc 32.4 g/dL (30.0-36.0); Mean Corpuscular Volume 95.8 fL (80-94); Mean Platelet Volume 9.8 fL (7.4-10.4); Monocytes # 0.4 10^3/uL (0.2-0.9); Monocytes % 1.5 %; Neutrophils # 22.64 10^3/uL (1.8-7.7); Neutrophils % 80.7 %; Nucleated Red Blood Cells % 0 %; Platelet Count 152 10^3/cmm (130-400); Red Blood Count 3.61 10^6/uL (4.1-5.3); Red Cell Distribution Width 14.6 % (12.1-15.1); White Blood Count 28.1 10^3/uL (4.0-10.0)
[2020-06-12 09:31] LABS: Alanine Aminotransferase 21 U/L (0-41); Albumin Level 3.4 g/dL (3.5-5.2); Alkaline Phosphatase 81 IU/L (40-130); Anion Gap 16.5 (5-19); Aspartate Amino Transferase 17 U/L (0-40); Blood Urea Nitrogen 10 mg/dL (8-23); Calcium 9.2 mg/dL (8.5-10.5); Carbon Dioxide 24 mmol/L (22-29); Chloride 95 mmol/L (98-107); Globulin 2.8 g/dL (1.3-4.6); Glucose 237 mg/dL (65-115); Osmolality Calculated 279 mOsm/kg (285-295); Potassium 4.5 mmol/L (3.5-5.1); Sodium 131 mmol/L (136-145); Total Bilirubin 0.5 mg/dL (0.15-1.2); Total Protein 6.2 g/dL (6.6-8.7)
[2020-06-12 09:58] LABS: Slide Review Slide Review Perform
== END 2020-06-14 23:59 | disposition home or self-care (01) ==
LOC: ONCMED 05:32
PROVIDERS: Absent Provider Radiology Radiation Oncology; Referring Provider Internal Medicine Hematology & Oncology; Visit Provider Internal Medicine Hematology & Oncology
DX: Z51.0 Encounter for antineoplastic radiation therapy (principal); Z51.11 Encounter for antineoplastic chemotherapy; C34.11 Malignant neoplasm of upper lobe, right bronchus or lung; E11.42 Type 2 diabetes mellitus with diabetic polyneuropathy; I73.9 Peripheral vascular disease, unspecified; E11.59 Type 2 diabetes mellitus with other circulatory complications; I25.10 Atherosclerotic heart disease of native coronary artery without angina pectoris; Z95.5 Presence of coronary angioplasty implant and graft; Z79.899 Other long term (current) drug therapy
CPT/HCPCS: 36415; 36591; 77336; 77386; 80053; 81003; 85025; 87635; 96367; 96372; 96375; 96413; 96417; 96523; 99215; J1100; J1200; J2469; J3490; J7030; J7050; J9045; J9267; Q5101

== ENCOUNTER 2020-07-07 05:24 | Outpatient (RCR) | payer OTHER, MEDICARE, SELFPAY ==
[2020-06-15 14:15] LABS: Hematocrit 33.3 % (42.0-52.0); Hemoglobin 11.2 g/dL (11.7-16.6); Lymphocytes # 0.1 10^3/uL (0.8-4.8); Mean Corpuscular HGB Conc 33.6 g/dL (30.0-36.0); Mean Corpuscular Volume 92.2 fL (80-94); Mean Platelet Volume 9.8 fL (7.4-10.4); Monocytes # 0.1 10^3/uL (0.2-0.9); Monocytes % 3.6 %; Neutrophils # 2.79 10^3/uL (1.8-7.7); Neutrophils % 91.7 %; Nucleated Red Blood Cells % 0 %; Platelet Count 181 10^3/cmm (130-400); Red Blood Count 3.61 10^6/uL (4.1-5.3); Red Cell Distribution Width 14.1 % (12.1-15.1)
[2020-06-15] MEDS: sodium chloride 0.9% 250 ML 75 ML IV (14:30)
[2020-06-15] MEDS: famotidine 20 mg/2 mL INJ IVP (14:35)
[2020-06-15] MEDS: diphenhydrAMINE 50 mg/mL SDV 1mL 25 MG IV (14:40)
[2020-06-15] MEDS: palonosetron 0.25 mg/5 mL SDV IV (14:45)
[2020-06-15 15:05] LABS: Alanine Aminotransferase 21 U/L (0-41); Alkaline Phosphatase 88 IU/L (40-130); Anion Gap 10.5 (5-19); Aspartate Amino Transferase 12 U/L (0-40); Blood Urea Nitrogen 14 mg/dL (8-23); Calcium 9.3 mg/dL (8.5-10.5); Carbon Dioxide 27 mmol/L (22-29); Chloride 94 mmol/L (98-107); Globulin 2.7 g/dL (1.3-4.6); Glucose 314 mg/dL (65-115); Osmolality Calculated 276 mOsm/kg (285-295); Potassium 4.5 mmol/L (3.5-5.1); Sodium 127 mmol/L (136-145); Total Bilirubin 0.5 mg/dL (0.15-1.2); Total Protein 6.7 g/dL (6.6-8.7)
--- NOTE | 2020-06-16 15:30 | ONCRAD TMN_ITS ---
Radiation Oncology Weekly Treatment Management Patient Name: Marbin Funez Date of : 1945 Date of Service: 06/16/2020 Attending Physician: Dionisio Cherry M.D. 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 The patient has received 50 Gy of a prescribed 60 García with an intensity modulated radiotherapy plan utilizing a step and shoot treatment technique. He has been prescribed carboplatin (AUC 2) and paclitaxel (50 mg/m???) weekly during therapy. Upon review of systems, he denied any pulmonary symptoms. On physical examination, the patient weighed 187 lbs. His temperature was 97 ???F with a blood pressure of 132/76 mmHg. The pulse was 90 bpm and his respiratory rate was 20. Oxygen saturation was 100% while breathing ambient air. There was no erythema within the treatment cramer. Auscultation of the posterior lung cramer identified bronchovesicular breath sounds. Continue thoracic radiotherapy as planned. Signed by: Dr. Dionisio Cherry 06/16/2020 3:30:31 PM
[2020-06-19 08:55] LABS: Basophils % 0.1 %; Eosinophils # 0.1 10^3/uL (0.0-0.8); Eosinophils % 0.9 %; Hemoglobin 10.6 g/dL (11.7-16.6); Lymphocytes # 0.2 10^3/uL (0.8-4.8); Lymphocytes % 1.5 %; Mean Corpuscular HGB Conc 34.2 g/dL (30.0-36.0); Mean Corpuscular Hemoglobin 30.9 pg (28.0-34.0); Mean Corpuscular Volume 90.4 fL (80-94); Mean Platelet Volume 9.9 fL (7.4-10.4); Monocytes # 0.4 10^3/uL (0.2-0.9); Monocytes % 2.7 %; Neutrophils # 10.55 10^3/uL (1.8-7.7); Neutrophils % 77.6 %; Nucleated Red Blood Cells % 0 %; Platelet Count 186 10^3/cmm (130-400); Red Blood Count 3.43 10^6/uL (4.1-5.3); White Blood Count 13.6 10^3/uL (4.0-10.0)
[2020-06-19 09:09] LABS: Alanine Aminotransferase 18 U/L (0-41); Albumin Level 3.7 g/dL (3.5-5.2); Alkaline Phosphatase 73 IU/L (40-130); Anion Gap 10.9 (5-19); Aspartate Amino Transferase 13 U/L (0-40); Blood Urea Nitrogen 8 mg/dL (8-23); Calcium 9.3 mg/dL (8.5-10.5); Carbon Dioxide 28 mmol/L (22-29); Chloride 92 mmol/L (98-107); Globulin 2.5 g/dL (1.3-4.6); Glucose 140 mg/dL (65-115); Osmolality Calculated 265 mOsm/kg (285-295); Potassium 3.9 mmol/L (3.5-5.1); Sodium 127 mmol/L (136-145); Total Bilirubin 0.6 mg/dL (0.15-1.2); Total Protein 6.2 g/dL (6.6-8.7)
[2020-06-19 09:25] LABS: Slide Review Slide Review Perform
--- NOTE | 2020-06-21 21:53 | ONC FU_ITS ---
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 Funez is a 74-year-old gentleman with a history of COPD. He went to [facility] [place] [facility] on November 26, 2019 with 3-day history of right flank pain. He reported his pain was radiating to with right pelvis. A CT scan of abdomen pelvis was done on November 26, 2019 which showed no urinary tract calculus or obstruction normal appendix; calcified right lower lobe pulmonary granuloma. On January 09, 2020, he had a chest x-ray done for chest pain and found to have right upper lung mass. He subsequently underwent CT scan of chest which confirmed right upper lobe lung mass measuring 2.7 x 3.1 cm. The lesion was subpleural and also showed mediastinal and hilar lymphadenopathy. He underwent transthoracic needle biopsy on February 06, 2020. He also underwent bronchoscopy and transbronchial needle aspiration of station 4R and 10 R lymph node. 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 Immunohistochemistry were negative for TTF-1, Napsin and p63 and CK 20 so based on this immunoprofile tumor was not overtly designated as a lung primary. Mr Funez has history of coronary artery disease status post stent placement and also has peripheral vascular disease. Patient denies any hemoptysis or hematemesis, denies any weight loss, denies any poor appetite,. Denies any headaches blurred vision or double vision. As per patient he has history of bladder cancer, diagnosed in 2006 or 8 at that time tumor was removed and he was given intravesical therapy. And followed by yearly exam until recently with no evidence of recurrence of disease. He also has history of neuropathy involving both feet probably due to peripheral vascular disease. He was evaluated by a vascular surgeon for intervention stenting or arterial bypass , As per patient bilateral femoral artery stenting was done on April 15, 2020 And on same day he underwent coronary artery stenting done, tolerated procedure very well and he was started on Plavix and aspirin. CT PET scan done on March 10, 2020 showed marked increase of metabolic activity in the anterior right upper lung lobe size about 2.6 x 3.2 cm consistent with neoplasia and there is extensive mediastinal lymph node involvement of anterior/prevascular lymph nodes, right paratracheal, precarinal with an index lesion measuring 1.4 x 2.0 cm with SUV of 6.75 and right hilar lymph node. No evidence of distant metastatic disease MRI scan of the brain done on April 06, 2020 showed no evidence of metastatic disease Tumor marker CA 19???9 was 18.37, PSA 0.673, and CEA 138.7., Patient had ENT evaluation done which shows no evidence of head or neck cancer EGD Was done on April 01, 2020, it was normal exam, As per patient he had colonoscopy done last year and it was unremarkable Mr Funez was offered treatment with concurrent chemoradiation and started with weekly carboplatin/Taxol on May 11, 2020. He has tolerated it well but has required growth factor support for neutropenia. Mr Funez is here today for followup. He has no new concerns today. He is still having discomfort with swallowing. He denies any hemoptysis, fever or chills. He denies any mouth sores. His appetite has decreased some but states moreso because it hurts to swallow when he is eating. He does utilize the pain meds and mouthwash and this does help some. He denies nausea or vomiting, diarrhea or constipation. He denies any peripheral neuropathy. He denies any bone pain. The growth factor support. His ECOG is 1. Past Medical History: Peripheral neuropathy Peripheral vascular disease Type II diabetes History of bladder cancer in 2006 Past Surgical History: EGD PORTHACATHER PLACEMENT DR. VIVIAN Stent placment Colonoscopy in 2019 Allergies: No Known Allergies. Medications: Acarbose 1 Tablet (of 100 mg) Oral t.i.d. Aspirin 1 Tablet (of 81 mg) Tablet, enteric coated Oral daily Atorvastatin Calcium 1 Tablet (of 80 mg) Oral daily Carvedilol 0.5 Tablet (of 6.25 mg) Oral b.i.d. Cetirizine HCl 1 Tablet (of 10 mg) Oral daily Cholecalciferol 1 Capsule (of 25 mcg ) Oral daily Cilostazol 1 Tablet (of 50 mg) Oral b.i.d. dilTIAZem HCl 1 Tablet (of 30 mg) Oral t.i.d. DULoxetine HCl 1 Capsule (of 30 mg) Capsule Delayed Release Particles Oral daily Furosemide 1 Tablet (of 20 mg) Oral daily hydroCHLOROthiazide 1 Tablet (of 25 mg) Oral daily Insulin Glargine 10 Units (of 100 Units/mL) Subcutaneous daily Lactulose Solution Oral PRN Levothyroxine Sodium 1 Tablet (of 25 mcg) Oral daily Lisinopril 1 Tablet (of 40 mg) Oral daily metFORMIN HCl 1 Tablet (of 850 mg) Oral t.i.d. Multivitamin 1 Tablet Oral daily Naproxen 1 Tablet (of 250 mg) Oral q 8 hours PRN NovoLOG 5 Units (of 100 Units/mL) Subcutaneous t.i.d. Pantoprazole Sodium 1 Tablet (of 20 mg) Tablet, enteric coated Oral daily prednisoLONE 1 Tablet (of 5 mg) Oral daily Rosuvastatin Calcium 1 Tablet (of 10 mg) Oral daily Theophylline ER 0.5 Capsule (of 400 mg) Capsule SR 24 HR Oral daily tiZANidine HCl 1 Capsule (of 2 mg) Oral q 8 hours PRN Trelegy Ellipta Aerosol Powder, Breath Activated Inhalation Family History: Mr. Funez's mother is alive. Mr. Funez's father at age 69: lung cancer. Mr. Funez has 1 brother who is : stroke. He has 1 sister who is : stroke. Social History: Mr. Funez is and he is an unknown. Mr. Funez quit smoking 14 years ago but had smoked 2.5 packs/day for 50 years. He has no history of drinking. Review Of Symptoms: Constitutional Denies fevers, chills, night sweats, excessive fatigue or weight loss. Allergic/Immunologic No reactions. Eyes Denies significant visual changes. No diplopia. No amaurosis. ENMT Denies changes in hearing, mouth sores, and/or sinus drainage. Sore throat-see above. Hematologic/Lymphatic Denies easy bruising or bleeding. The patient denies any tender or palpable lymph nodes. Respiratory Denies dyspnea on exertion, chest pain, cough or hemoptysis. Denies orthopnea. Cardiovascular Denies anginal chest pain, palpitations or orthopnea. Gastrointestinal Denies nausea, vomiting, diarrhea, GI bleeding, or constipation. Denies change in bowel habits and/or stool color, no heartburn or early satiety. Genitourinary (M) Denies hematuria, dysuria, increased frequency, urgency, hesitancy or incontinence. Musculoskeletal Denies joint pain, swelling or redness. No decreased range of motion. Integumentary Denies chronic rashes, inflammation, ulcerations or skin changes. Neurologic Denies headache, blurred vision, and no areas of focal weakness or numbness. Normal gait. No sensory problems. Psychiatric Denies insomnia, depression, ahsan or mood swings. Vital Signs: Performed on Jun 15, 2020 17:35 Height - 70.00 in Temperature - 97 F (LOW) Pulse - 90 /min Respiration - 20 /min BP - 132/76 mm(hg) O2 Sat - 100 % Pain - 0 Fatigue - 0 Performed on Jun 15, 2020 13:40 Height - 70.00 in Weight - 187.4 lbs (LOW) BSA - 2.03 sq.m BMI - 26.89 Temperature - 96.4 F (LOW) Pulse - 118 /min (HIGH) Respiration - 18 /min BP - 113/75 mm(hg) O2 Sat - 99 % Pain - 0,1 - No physically strenuous activity, but ambulatory and able to carry out light or sedentary work (e.g. office work, light house work). (ECOG) Physical Examination: Constitutional Alert, oriented, no acute distress. Skin pink, warm and dry. Head Normocephalic; atraumatic. Eyes Conjunctivae and sclerae are clear and without icterus. Pupils are reactive and equal. ENMT No oral exudates, ulcers, masses, thrush or mucositis. Oropharynx clear. Tongue normal. Neck Supple without masses or thyromegaly. No jugular venous distension. Hematologic/Lymphatic No petechiae or purpura. No tender or palpable lymph nodes in the cervical or supraclavicular areas. Respiratory Lungs are clear to auscultation without rhonchi or wheezing. Cardiovascular Regular rate and rhythm of heart without murmurs,clicks, gallops or rubs. Abdomen Non-tender, non-distended, no masses or ascites. Good bowel sounds noted in all quads. No guarding or rebound tenderness. No pulsatile masses. Back/Spine Non-tender to palpation. Extremities No visible deformities, no cyanosis, clubbing or edema. Musculoskeletal No tenderness or swelling, normal range of motion without obvious weakness. Integumentary No rashes or lesions. Neurologic No sensory or motor deficits, normal cerebellar function, normal gait. Psychiatric Alert and oriented times three. Coherent speech. Verbalizes understanding of our discussions today. Laboratory:Test performed on Jun 19, 2020 08:40 Sodium 127 mmol/L Potassium 3.9 mmol/L Chloride 92 mmol/L CO2 28 mmol/L Anion Gap 10.9 BUN 8 mg/dL Creatinine 0.4 mg/dL Cr Clearance (Est) 201.2700 mL/min Glucose 140 mg/dL Osmolality - Calculated 265 mOsm/kg Calcium 9.3 mg/dL Protein, Total 6.2 g/dL Albumin 3.7 g/dL Globulin 2.5 g/dL Bilirubin, Total 0.6 mg/dL ALT (SGPT) 18 U/L AST (SGOT) 13 U/L Alkaline Phosphatase 73 IU/L WBC 13.6 10 3/uL RBC 3.43 10 6/uL HGB 10.6 g/dL HCT 31.0 % MCV 90.4 fL MCH 30.9 pg MCHC 34.2 g/dL RDW 14.0 % Platelet Count 186 10 3/cmm MPV 9.9 fL Neutrophils 10.55 10 3/uL Lymphocytes 0.2 10 3/uL Monocytes 0.4 10 3/uL Eosinophils 0.1 10 3/uL Basophils 0.0 10 3/uL Neutrophil % 77.6 % Lymphocyte % 1.5 % Monocyte % 2.7 % Eosinophil % 0.9 % Basophils % 0.1 % NRBC % 0 % CBC Slide Review Slide Review Perform SLIDE REVIEW AGREES WITH AUTOMATED RESULTS NEUTROPHIL RESEMBLE PEGLER HUET CELLS Test performed on May 27, 2020 14:45 SARS-CoV-2 RNA (COVID-19) NOT DETECTED A Not Detected (negative) test result for this test means that SARS- CoV-2 RNA was not present in the specimen above the limit of detection. A negative result does not rule out the possibility of COVID-19 and should not be used as the sole basis for treatment or patient management decisions. If COVID-19 is still suspected, based on exposure history together with other clinical findings, re-testing should be considered in consultation with public health authorities. Laboratory test results should always be considered in the context of clinical observations and epidemiological data in making a final diagnosis and patient management decisions. Please review the Fact Sheets and FDA authorized labeling available for health care providers and patients using the following websites: [email or web address]/ fact-[email or web address] This test has been authorized by the FDA under an Emergency Use Authorization (EUA) for use by authorized laboratories. Due to the current public health emergency, [facility] is receiving a high volume of samples from a wide variety of swabs and media for COVID-19 testing. In order to serve patients during this public health crisis, samples from appropriate clinical sources are being tested. Negative test results derived from specimens received in non-commercially manufactured viral collection and transport media, or in media and sample collection kits not yet authorized by FDA for COVID-19 testing should be cautiously evaluated and the patient potentially subjected to extra precautions such as additional clinical monitoring, including collection of an additional specimen. Methodology: Nucleic Acid Amplification Test (NAAT) includes RT-PCR or TMA Additional information about COVID-19 can be found at the [facility] [facility] website: [email or web address]. THIS TEST WAS PERFORMED AT: [employer] [facility] [id number] [place] [address] VISHNU RODRIGUEZ DO,MPH Test performed on May 27, 2020 14:36 Ua Color Yellow Ua Appearance Clear Ua Glucose Trace Ua Bilirubin Neg Ua Ketones Negative Ua Specific [place] 1.020 Ua Blood Neg Ua pH 5 Ua Protein Neg Ua Nitrites Negative Ua Leukocyte Esterase Negative Test performed on May 26, 2020 00:00 Manual Diff DUPLICATE TEST ST Test performed on Feb 25, 2020 12:10 CA 19-9 18.37 U/mL CEA 138.7 ng/mL PSA 0.673 ng/mL 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 CT scan of abdomen pelvis done in November 2019 showed no evidence of metastatic disease ENT, EGD evaluation showed no evidence of head and neck cancer, as per Patient, he had colonoscopy done last year it was unremarkable tumor marker CA 19???9 18.37 CEA [address] PET scan done on March 10, 2020 showed right upper lobe mass measuring 2.6 x 3.2 cm with SUV of 10.30, extensive mediastinal lymphadenopathy along with right hilar lymph node. No distant metastatic disease a single rib, right 10th rib laterally demonstrated on heparin fracture with callus formation .MRI scan of the head done on April 06, 2020 showed no evidence of metastatic disease, Clinical stage IIIa Started on combined chemoradiation with weekly carboplatin/Taxol on May 11, 2020 Diabetes and related complication ? diabetic neuropathyOr vascular as patient has been severe peripheral vascular disease involving bilateral feet Peripheral vascular disease,Status post bilateral femoral arterial stenting Done on April 15, 2020 CAD status post stent placement.Due to progressive coronary artery disease coronary artery stenting Done on April 15, 2020 Plan: PROBLEMS ADDRESSED TODAY 1. 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 Proceed with cycle 5 carboplatin paclitaxel along with daily radiation. B. Steroid compliance confirmed. C. Labs from 06/12/2020 were reviewed in detail and discussed with Mr. Funez and a copy was given to him. WBC 28.1, hemoglobin 11.2, platelets 10 52,000 ANC is 22,640 potassium 4.5 random glucose 237 creatinine 0.6 LFTs are normal. I did ask for a repeat CBC today for assessment of neutrophils to determine if he needs additional growth factors this week. With stopping the growth factor his WBC today is 3.0, hemoglobin 11.2 platelets 1 81,000 ANC is 2790. D. We will plan to start growth factor support with Zarxio on June 17 [place] at 80 mics daily for 3 days. E. We will plan to see him back in 1 week for consideration of cycle 6 with CBC CMP. F. Mr. Funez has been instructed to contact us in the interim should questions or problems arise. 2. Pain with swallowing/sore throat A. Treatment related. He will continue with Magic mouthwash and liquid pain medication. Do not see any evidence of any yeast on exam but she continues have problem swallowing may want to consider adding antifungal for further coverage. We could add nystatin to his Magic mouthwash if covered by insurance. Signed By: Felipa Lucio-, AOCNP Nuno Campbell MD <<Signature on File>>
--- NOTE | 2020-06-22 11:01 | ONC FU_ITS ---
Dr. Campbell follow up note Patient: Marbin Funez V Unit #: [id number]: 1945 Dicatated By: Nuno Campbell M.D.Date of Visit:Jun 22, 2020 Onc Med Follow-up/Prog Note History of Present Illness: Mr. Funez is a 74-year-old gentleman with a history of COPD. He went to [facility] on November 26, 2019 with 3-day history of right flank pain. He reported his pain was radiating to with right pelvis. A CT scan of abdomen pelvis was done on November 26, 2019 which showed no urinary tract calculus or obstruction normal appendix; calcified right lower lobe pulmonary granuloma. On January 09, 2020, he had a chest x-ray done for chest pain and found to have right upper lung mass. He subsequently underwent CT scan of chest which confirmed right upper lobe lung mass measuring 2.7 x 3.1 cm. The lesion was subpleural and also showed mediastinal and hilar lymphadenopathy. He underwent transthoracic needle biopsy on February 06, 2020. He also underwent bronchoscopy and transbronchial needle aspiration of station 4R and 10 R lymph node. 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 Immunohistochemistry were negative for TTF-1, Napsin and p63 and CK 20 so based on this immunoprofile tumor was not overtly designated as a lung primary. Mr Funez has history of coronary artery disease status post stent placement and also has peripheral vascular disease. Patient denies any hemoptysis or hematemesis, denies any weight loss, denies any poor appetite,. Denies any headaches blurred vision or double vision. As per patient he has history of bladder cancer, diagnosed in 2006 or 8 at that time tumor was removed and he was given intravesical therapy. And followed by yearly exam until recently with no evidence of recurrence of disease. He also has history of neuropathy involving both feet probably due to peripheral vascular disease. He was evaluated by a vascular surgeon for intervention stenting or arterial bypass , As per patient bilateral femoral artery stenting was done on April 15, 2020 And on same day he underwent coronary artery stenting done, tolerated procedure very well and he was started on Plavix and aspirin. CT PET scan done on March 10, 2020 showed marked increase of metabolic activity in the anterior right upper lung lobe size about 2.6 x 3.2 cm consistent with neoplasia and there is extensive mediastinal lymph node involvement of anterior/prevascular lymph nodes, right paratracheal, precarinal with an index lesion measuring 1.4 x 2.0 cm with SUV of 6.75 and right hilar lymph node. No evidence of distant metastatic disease MRI scan of the brain done on April 06, 2020 showed no evidence of metastatic disease Tumor marker CA 19???9 was 18.37, PSA 0.673, and CEA 138.7., Patient had ENT evaluation done which shows no evidence of head or neck cancer EGD Was done on April 01, 2020, it was normal exam, As per patient he had colonoscopy done last year and it was unremarkable Mr Funez was offered treatment with concurrent chemoradiation and started with weekly carboplatin/Taxol on May 11, 2020. He has tolerated it well but has required growth factor support for neutropenia. Came for follow-up, denies any specific complaint except generalized weakness and fatigue and burning sensation with oral intake being controlled by narcotics/Magic mouthwash otherwise tolerating combined chemoradiation well. No fever chills, no nausea or vomiting, no diarrhea or constipation, no jaundice, no peripheral numbness. Patient did not take his premedication with steroid last night for his weekly dose of carboplatin/Taxol today. Medications: Acarbose 1 Tablet (of 100 mg) Oral t.i.d., Aspirin 1 Tablet (of 81 mg) Tablet, enteric coated Oral daily, Atorvastatin Calcium 1 Tablet (of 80 mg) Oral daily, Carvedilol 0.5 Tablet (of 6.25 mg) Oral b.i.d., Cetirizine HCl 1 Tablet (of 10 mg) Oral daily, Cholecalciferol 1 Capsule (of 25 mcg ) Oral daily, Cilostazol 1 Tablet (of 50 mg) Oral b.i.d., dilTIAZem HCl 1 Tablet (of 30 mg) Oral t.i.d., DULoxetine HCl 1 Capsule (of 30 mg) Capsule Delayed Release Particles Oral daily, Furosemide 1 Tablet (of 20 mg) Oral daily, hydroCHLOROthiazide 1 Tablet (of 25 mg) Oral daily, Insulin Glargine 10 Units (of 100 Units/mL) Subcutaneous daily, Lactulose Solution Oral PRN, Levothyroxine Sodium 1 Tablet (of 25 mcg) Oral daily, Lisinopril 1 Tablet (of 40 mg) Oral daily, metFORMIN HCl 1 Tablet (of 850 mg) Oral t.i.d., Multivitamin 1 Tablet Oral daily, Naproxen 1 Tablet (of 250 mg) Oral q 8 hours PRN, NovoLOG 5 Units (of 100 Units/mL) Subcutaneous t.i.d., Pantoprazole Sodium 1 Tablet (of 20 mg) Tablet, enteric coated Oral daily, prednisoLONE 1 Tablet (of 5 mg) Oral daily, Rosuvastatin Calcium 1 Tablet (of 10 mg) Oral daily, Theophylline ER 0.5 Capsule (of 400 mg) Capsule SR 24 HR Oral daily, tiZANidine HCl 1 Capsule (of 2 mg) Oral q 8 hours PRN, Trelegy Ellipta Aerosol Powder, Breath Activated Inhalation Allergies: No Known Allergies. Review of Systems: Constitutional - Appetite is good and weight is stable. No fever, night sweats, or hot flashes. Energy level is fair, ENMT - Positive for sinus congestion/drainage. Negative for mouth sores. Positive for sore throat and difficulty swallowing, Hematologic/Lymphatic - Positive for easy bruising/bleeding, Respiratory - No shortness of breath. Positive for cough. No pleuritic pain or hemoptysis, Cardiovascular - No angina pain. No palpitations, Gastrointestinal - No nausea or vomiting. Positive for heartburn and acid reflux. No diarrhea, occasional constipation. No blood in the stool or black stools, Genitourinary (M) - No dysuria or hematuria. No urinary frequency. No urgency or incontinence, Musculoskeletal - Positive for joint and bone pain, Neurologic - No headache or dizziness. Positive for numbness and tingling in right leg. No other focal neurologic symptoms, Psychiatric - No anxiety or depression. No insomnia. Vital Signs: Performed on Jun 22, 2020 08:16 Height - 70.00 in Weight - 183.2 lbs (LOW) BSA - 2.01 sq.m BMI - 26.29 Temperature - 97.4 F (LOW) Pulse - 111 /min (HIGH) Respiration - 18 /min BP - 128/66 mm(hg) O2 Sat - 96 % Pain - 10 Fatigue - 6 Performance Status: 2 - Ambulatory/capable of all self-care, unable to perform any work activities. Up and about more than 50% of waking hours. (ECOG) Physical Examination: ENMT - No mouth sores, no thrush, no jaundice, Respiratory - Lungs are clear to auscultation, Cardiovascular - Regular rate and rhythm of heart, Abdomen - Soft, bowel sounds present, Extremities - No visible edema. Lab/Imaging: Test performed on Jun 19, 2020 08:40 Sodium 127 mmol/L Potassium 3.9 mmol/L Chloride 92 mmol/L CO2 28 mmol/L Anion Gap 10.9 BUN 8 mg/dL Creatinine 0.4 mg/dL Cr Clearance (Est) 201.2700 mL/min Glucose 140 mg/dL Osmolality - Calculated 265 mOsm/kg Calcium 9.3 mg/dL Protein, Total 6.2 g/dL Albumin 3.7 g/dL Globulin 2.5 g/dL Bilirubin, Total 0.6 mg/dL ALT (SGPT) 18 U/L AST (SGOT) 13 U/L Alkaline Phosphatase 73 IU/L WBC 13.6 10 3/uL RBC 3.43 10 6/uL HGB 10.6 g/dL HCT 31.0 % MCV 90.4 fL MCH 30.9 pg MCHC 34.2 g/dL RDW 14.0 % Platelet Count 186 10 3/cmm MPV 9.9 fL Neutrophils 10.55 10 3/uL Lymphocytes 0.2 10 3/uL Monocytes 0.4 10 3/uL Eosinophils 0.1 10 3/uL Basophils 0.0 10 3/uL Neutrophil % 77.6 % Lymphocyte % 1.5 % Monocyte % 2.7 % Eosinophil % 0.9 % Basophils % 0.1 % NRBC % 0 % CBC Slide Review Slide Review Perform SLIDE REVIEW AGREES WITH AUTOMATED RESULTS NEUTROPHIL RESEMBLE PEGLER HUET CELLS Test performed on May 27, 2020 14:45 SARS-CoV-2 RNA (COVID-19) NOT DETECTED A Not Detected (negative) test result for this test means that SARS- CoV-2 RNA was not present in the specimen above the limit of detection. A negative result does not rule out the possibility of COVID-19 and should not be used as the sole basis for treatment or patient management decisions. If COVID-19 is still suspected, based on exposure history together with other clinical findings, re-testing should be considered in consultation with public health authorities. Laboratory test results should always be considered in the context of clinical observations and epidemiological data in making a final diagnosis and patient management decisions. Please review the Fact Sheets and FDA authorized labeling available for health care providers and patients using the following websites: [email or web address]/fact-[email or web address]-19/Patients/NAAT/ fact-sheet2 This test has been authorized by the FDA under an Emergency Use Authorization (EUA) for use by authorized laboratories. Due to the current public health emergency, [facility] is receiving a high volume of samples from a wide variety of swabs and media for COVID-19 testing. In order to serve patients during this public health crisis, samples from appropriate clinical sources are being tested. Negative test results derived from specimens received in non-commercially manufactured viral collection and transport media, or in media and sample collection kits not yet authorized by FDA for COVID-19 testing should be cautiously evaluated and the patient potentially subjected to extra precautions such as additional clinical monitoring, including collection of an additional specimen. Methodology: Nucleic Acid Amplification Test (NAAT) includes RT-PCR or TMA Additional information about COVID-19 can be found at the [facility] website: [email or web address]. THIS TEST WAS PERFORMED AT: [facility] [employer] [address] [place] [address] VISHNU RODRIGUEZ DO,MPH Test performed on May 27, 2020 14:36 Ua Color Yellow Ua Appearance Clear Ua Glucose Trace Ua Bilirubin Neg Ua Ketones Negative Ua Specific [place] 1.020 Ua Blood Neg Ua pH 5 Ua Protein Neg Ua Nitrites Negative Ua Leukocyte Esterase Negative Test performed on May 26, 2020 00:00 Manual Diff DUPLICATE TEST ST Test performed on Feb 25, 2020 12:10 CA 19-9 18.37 U/mL CEA 138.7 ng/mL PSA 0.673 ng/mL 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 CT scan of abdomen pelvis done in November 2019 showed no evidence of metastatic disease ENT, EGD evaluation showed no evidence of head and neck cancer, as per Patient, he had colonoscopy done last year it was unremarkable tumor marker CA 19???9 18.37 CEA [address] PET scan done on March 10, 2020 showed right upper lobe mass measuring 2.6 x 3.2 cm with SUV of 10.30, extensive mediastinal lymphadenopathy along with right hilar lymph node. No distant metastatic disease a single rib, right 10th rib laterally demonstrated on heparin fracture with callus formation .MRI scan of the head done on April 06, 2020 showed no evidence of metastatic disease, Clinical stage IIIa Started on combined chemoradiation with weekly carboplatin/Taxol on May 11, 2020 Diabetes and related complication ? diabetic neuropathyOr vascular as patient has been severe peripheral vascular disease involving bilateral feet Peripheral vascular disease,Status post bilateral femoral arterial stenting Done on April 15, 2020 CAD status post stent placement.Due to progressive coronary artery disease coronary artery stenting Done on April 15, 2020 Plan: Discussed with patient regarding his labs white blood count 13.6 hemoglobin 10.6 hematocrit 31 platelets 186,000 CMP within normal limit except sodium 127 glucose 140 Clinically, patient doing reasonably well, tolerating combined chemoradiation with weekly carboplatin/Taxol well but with expected side effects e.g. esophagitis, generalized weakness and fatigue, hyperglycemia. His hyponatremia could be due to excessive free fluid intake. Patient was supposed to receive his next and final dose of weekly carboplatin/Taxol today but he forgot to take his premedication with steroids last night, so he will take it tonight and then return to clinic in the morning for final dose of weekly carboplatin/Taxol concurrent with radiation therapy as he will conclude his radiation therapy on June 24, 2020. Patient will return to clinic in 3 weeks with CBC CMP and at that time will consider starting him on maintenance therapy with durvalumab every 2 weeks x12 months. All the side effects possible benefits associated with immunotherapy were discussed briefly including but not limited to endocrinopathy, pneumonitis, colitis, skin rash were discussed further teaching will done by chemotherapy nurse. Earlier plan was to give him 2 cycles of full dose carboplatin/Taxol after conclusion of combined chemoradiation but patient is having hard time tolerating combined chemoradiation therapy now with declining in performance status so considering his age, and intolerance to combined chemoradiation. In that case, would not consider full dose carboplatin/Taxol rather proceed with maintenance therapy with durvalumab, once recovered from combined chemoradiation. As far as mild hyperglycemia is concerned patient was advised to monitor his diet and also advised to limit free fluid intake and will follow his sodium level. Return to clinic in 3 weeks with CBC CMP Signed By: Nuno Campbell M.D. <<Signature on File>>
[2020-06-23] MEDS: palonosetron 0.25 mg/5 mL SDV IV (08:52)
[2020-06-23] MEDS: famotidine 20 mg/2 mL INJ IVP (08:56)
[2020-06-23] MEDS: diphenhydrAMINE 50 mg/mL SDV 1mL 25 MG IV (08:57)
[2020-06-23] MEDS: sodium chloride 0.9% 250 ML 75 ML IV (09:00)
[2020-07-06 13:58] LABS: Basophils % 1.1 %; Eosinophils # 0.1 10^3/uL (0.0-0.8); Eosinophils % 1.6 %; Hemoglobin 10.4 g/dL (11.7-16.6); Lymphocytes # 1.2 10^3/uL (0.8-4.8); Lymphocytes % 32.5 %; Mean Corpuscular HGB Conc 33.5 g/dL (30.0-36.0); Mean Corpuscular Hemoglobin 31.5 pg (28.0-34.0); Mean Corpuscular Volume 93.9 fL (80-94); Mean Platelet Volume 8.8 fL (7.4-10.4); Monocytes # 0.9 10^3/uL (0.2-0.9); Monocytes % 23.6 %; Neutrophils % 40.7 %; Nucleated Red Blood Cells % 0 %; Platelet Count 211 10^3/cmm (130-400); Red Cell Distribution Width 16.8 % (12.1-15.1); White Blood Count 3.7 10^3/uL (4.0-10.0)
[2020-07-06 14:16] LABS: Alanine Aminotransferase 25 U/L (0-41); Albumin Level 3.8 g/dL (3.5-5.2); Alkaline Phosphatase 62 IU/L (40-130); Aspartate Amino Transferase 21 U/L (0-40); Blood Urea Nitrogen 11 mg/dL (8-23); Calcium 9.4 mg/dL (8.5-10.5); Carbon Dioxide 27 mmol/L (22-29); Chloride 96 mmol/L (98-107); Globulin 2.7 g/dL (1.3-4.6); Glucose 188 mg/dL (65-115); Osmolality Calculated 282 mOsm/kg (285-295); Sodium 134 mmol/L (136-145); Total Bilirubin 0.2 mg/dL (0.15-1.2); Total Protein 6.5 g/dL (6.6-8.7)
[2020-07-06 14:20] LABS: Anion Gap 14.6 (5-19); Potassium 3.6 mmol/L (3.5-5.1)
--- NOTE | 2020-07-07 16:35 | ONC FU_ITS ---
Dr. Campbell follow up note Patient: Marbin Funez V Unit #: [id number]: 1945 Dicatated By: Nuno Campbell M.D.Date of Visit:Jul 07, 2020 Onc Med Follow-up/Prog Note History of Present Illness: Mr. Funez is a 74-year-old gentleman with a history of COPD. He went to [facility] on November 26, 2019 with 3-day history of right flank pain. He reported his pain was radiating to with right pelvis. A CT scan of abdomen pelvis was done on November 26, 2019 which showed no urinary tract calculus or obstruction normal appendix; calcified right lower lobe pulmonary granuloma. On January 09, 2020, he had a chest x-ray done for chest pain and found to have right upper lung mass. He subsequently underwent CT scan of chest which confirmed right upper lobe lung mass measuring 2.7 x 3.1 cm. The lesion was subpleural and also showed mediastinal and hilar lymphadenopathy. He underwent transthoracic needle biopsy on February 06, 2020. He also underwent bronchoscopy and transbronchial needle aspiration of station 4R and 10 R lymph node. 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 Immunohistochemistry were negative for TTF-1, Napsin and p63 and CK 20 so based on this immunoprofile tumor was not overtly designated as a lung primary. Mr Funez has history of coronary artery disease status post stent placement and also has peripheral vascular disease. Patient denies any hemoptysis or hematemesis, denies any weight loss, denies any poor appetite,. Denies any headaches blurred vision or double vision. As per patient he has history of bladder cancer, diagnosed in 2006 or 8 at that time tumor was removed and he was given intravesical therapy. And followed by yearly exam until recently with no evidence of recurrence of disease. He also has history of neuropathy involving both feet probably due to peripheral vascular disease. He was evaluated by a vascular surgeon for intervention stenting or arterial bypass , As per patient bilateral femoral artery stenting was done on April 15, 2020 And on same day he underwent coronary artery stenting done, tolerated procedure very well and he was started on Plavix and aspirin. CT PET scan done on March 10, 2020 showed marked increase of metabolic activity in the anterior right upper lung lobe size about 2.6 x 3.2 cm consistent with neoplasia and there is extensive mediastinal lymph node involvement of anterior/prevascular lymph nodes, right paratracheal, precarinal with an index lesion measuring 1.4 x 2.0 cm with SUV of 6.75 and right hilar lymph node. No evidence of distant metastatic disease MRI scan of the brain done on April 06, 2020 showed no evidence of metastatic disease Tumor marker CA 19???9 was 18.37, PSA 0.673, and CEA 138.7., Patient had ENT evaluation done which shows no evidence of head or neck cancer EGD Was done on April 01, 2020, it was normal exam, As per patient he had colonoscopy done last year and it was unremarkable Mr Funez was offered treatment with concurrent chemoradiation and started with weekly carboplatin/Taxol on May 11, 2020. He has tolerated it well but has required growth factor support for neutropenia.Completed combined chemoradiation therapy on June 23, 2020 Came for follow-up, complaining of off and on substernal chest pain, indigestion, off and on hemoptysis, completed radiation therapy about 2 weeks ago, overall his symptoms are improving but still problem with swallowing especially with water. Otherwise no fever chills no nausea or vomiting no diarrhea or constipation as per patient sometime he feels short of breath with chest pain but no palpitation no pain radiating to left arm, pain is mostly in the substernal area. Patient has history of coronary artery disease and underwent coronary artery stenting prior to combined chemoradiation treatment. Medications: Acarbose 1 Tablet (of 100 mg) Oral t.i.d., Aspirin 1 Tablet (of 81 mg) Tablet, enteric coated Oral daily, Atorvastatin Calcium 1 Tablet (of 80 mg) Oral daily, Carvedilol 0.5 Tablet (of 6.25 mg) Oral b.i.d., Cetirizine HCl 1 Tablet (of 10 mg) Oral daily, Cholecalciferol 1 Capsule (of 25 mcg ) Oral daily, Cilostazol 1 Tablet (of 50 mg) Oral b.i.d., dilTIAZem HCl 1 Tablet (of 30 mg) Oral t.i.d., DULoxetine HCl 1 Capsule (of 30 mg) Capsule Delayed Release Particles Oral daily, Furosemide 1 Tablet (of 20 mg) Oral daily, hydroCHLOROthiazide 1 Tablet (of 25 mg) Oral daily, Insulin Glargine 10 Units (of 100 Units/mL) Subcutaneous daily, Lactulose Solution Oral PRN, Levothyroxine Sodium 1 Tablet (of 25 mcg) Oral daily, Lisinopril 1 Tablet (of 40 mg) Oral daily, metFORMIN HCl 1 Tablet (of 850 mg) Oral t.i.d., Multivitamin 1 Tablet Oral daily, Naproxen 1 Tablet (of 250 mg) Oral q 8 hours PRN, NovoLOG 5 Units (of 100 Units/mL) Subcutaneous t.i.d., Pantoprazole Sodium 1 Tablet (of 20 mg) Tablet, enteric coated Oral daily, prednisoLONE 1 Tablet (of 5 mg) Oral daily, Rosuvastatin Calcium 1 Tablet (of 10 mg) Oral daily, Theophylline ER 0.5 Capsule (of 400 mg) Capsule SR 24 HR Oral daily, tiZANidine HCl 1 Capsule (of 2 mg) Oral q 8 hours PRN, Trelegy Ellipta Aerosol Powder, Breath Activated Inhalation Allergies: No Known Allergies. Review of Systems: Review of Systems is not available for this patient. Vital Signs: Performed on Jul 07, 2020 08:57 Height - 70.00 in Weight - 187.2 lbs (HIGH) BSA - 2.03 sq.m BMI - 26.86 Temperature - 97.2 F (LOW) Pulse - 108 /min (HIGH) Respiration - 18 /min BP - 125/62 mm(hg) O2 Sat - 97 % Pain - 0 Fatigue - 0 Performance Status: 2 - Ambulatory/capable of all self-care, unable to perform any work activities. Up and about more than 50% of waking hours. (ECOG) Physical Examination: ENMT - Sores, no thrush, no jaundice, Respiratory - Lungs are clear to auscultation, Cardiovascular - Regular rate and rhythm of heart, Abdomen - Soft, bowel sounds present, Extremities - No visible edema. Lab/Imaging: Test performed on Jun 19, 2020 08:40 Sodium 127 mmol/L Potassium 3.9 mmol/L Chloride 92 mmol/L CO2 28 mmol/L Anion Gap 10.9 BUN 8 mg/dL Creatinine 0.4 mg/dL Cr Clearance (Est) 201.2700 mL/min Glucose 140 mg/dL Osmolality - Calculated 265 mOsm/kg Calcium 9.3 mg/dL Protein, Total 6.2 g/dL Albumin 3.7 g/dL Globulin 2.5 g/dL Bilirubin, Total 0.6 mg/dL ALT (SGPT) 18 U/L AST (SGOT) 13 U/L Alkaline Phosphatase 73 IU/L WBC 13.6 10 3/uL RBC 3.43 10 6/uL HGB 10.6 g/dL HCT 31.0 % MCV 90.4 fL MCH 30.9 pg MCHC 34.2 g/dL RDW 14.0 % Platelet Count 186 10 3/cmm MPV 9.9 fL Neutrophils 10.55 10 3/uL Lymphocytes 0.2 10 3/uL Monocytes 0.4 10 3/uL Eosinophils 0.1 10 3/uL Basophils 0.0 10 3/uL Neutrophil % 77.6 % Lymphocyte % 1.5 % Monocyte % 2.7 % Eosinophil % 0.9 % Basophils % 0.1 % NRBC % 0 % CBC Slide Review Slide Review Perform SLIDE REVIEW AGREES WITH AUTOMATED RESULTS NEUTROPHIL RESEMBLE PEGLER HUET CELLS Test performed on May 27, 2020 14:45 SARS-CoV-2 RNA (COVID-19) NOT DETECTED A Not Detected (negative) test result for this test means that SARS- CoV-2 RNA was not present in the specimen above the limit of detection. A negative result does not rule out the possibility of COVID-19 and should not be used as the sole basis for treatment or patient management decisions. If COVID-19 is still suspected, based on exposure history together with other clinical findings, re-testing should be considered in consultation with public health authorities. Laboratory test results should always be considered in the context of clinical observations and epidemiological data in making a final diagnosis and patient management decisions. Please review the Fact Sheets and FDA authorized labeling available for health care providers and patients using the following websites: [email or web address]/fact-[email or web address]/[email or web address]/ fact-sheet2 This test has been authorized by the FDA under an Emergency Use Authorization (EUA) for use by authorized laboratories. Due to the current public health emergency, [facility] is receiving a high volume of samples from a wide variety of swabs and media for COVID-19 testing. In order to serve patients during this public health crisis, samples from appropriate clinical sources are being tested. Negative test results derived from specimens received in non-commercially manufactured viral collection and transport media, or in media and sample collection kits not yet authorized by FDA for COVID-19 testing should be cautiously evaluated and the patient potentially subjected to extra precautions such as additional clinical monitoring, including collection of an additional specimen. Methodology: Nucleic Acid Amplification Test (NAAT) includes RT-PCR or TMA Additional information about COVID-19 can be found at the [facility] website: [email or web address]. THIS TEST WAS PERFORMED AT: [employer] [facility] [address] [place] [address] VISHNU RODRIGUEZ DO,MPH Test performed on May 27, 2020 14:36 Ua Color Yellow Ua Appearance Clear Ua Glucose Trace Ua Bilirubin Neg Ua Ketones Negative Ua Specific [place] 1.020 Ua Blood Neg Ua pH 5 Ua Protein Neg Ua Nitrites Negative Ua Leukocyte Esterase Negative Test performed on May 26, 2020 00:00 Manual Diff DUPLICATE TEST ST Test performed on Feb 25, 2020 12:10 CA 19-9 18.37 U/mL CEA 138.7 ng/mL PSA 0.673 ng/mL 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 CT scan of abdomen pelvis done in November 2019 showed no evidence of metastatic disease ENT, EGD evaluation showed no evidence of head and neck cancer, as per Patient, he had colonoscopy done last year it was unremarkable tumor marker CA 19???9 18.37 CEA 138[address] PET scan done on March 10, 2020 showed right upper lobe mass measuring 2.6 x 3.2 cm with SUV of 10.30, extensive mediastinal lymphadenopathy along with right hilar lymph node. No distant metastatic disease a single rib, right 10th rib laterally demonstrated on heparin fracture with callus formation .MRI scan of the head done on April 06, 2020 showed no evidence of metastatic disease, Clinical stage IIIa Started on combined chemoradiation with weekly carboplatin/Taxol on May 11, 2020 Completed on June 23, 2020 Diabetes and related complication ? diabetic neuropathyOr vascular as patient has been severe peripheral vascular disease involving bilateral feet Peripheral vascular disease,Status post bilateral femoral arterial stenting Done on April 15, 2020 CAD status post stent placement.Due to progressive coronary artery disease coronary artery stenting Done on April 15, 2020 Plan: Discussed with patient regarding his labs white blood count 3.7 hemoglobin 10.4 hematocrit 31 platelets 211,000 CMP within normal limit except sodium 134 and glucose 188 Clinically, patient doing reasonably well in mild to moderate distress due to off and on substernal chest pain, hemoptysis and odynophagia which is probably esophagitis/bronchitis due to combined chemoradiation but concern is persistent off and on hemoptysis, patient is scheduled to see Dr. Zhu on coming and he will discuss with him regarding evaluation and may benefit from bronchoscopy As for substernal chest pain is concerned which could be due to esophagitis but patient has history of coronary artery disease and recently underwent coronary artery stenting so we will send him to the emergency room for evaluation. If his dysphagia persist, may refer him to GI for evaluation with EGD. Discussed with patient regarding role of maintenance therapy with durvalumab, all the side effect possible benefits associated with immunotherapy including but not limited to endocrinopathy, pneumonitis, colitis, jaundice, skin rash were mentioned further teaching will done by chemotherapy nurse and will obtain approval from his insurance prior to the treatment and overall condition continued to improve, may consider starting maintenance therapy with durvalumab every 2 weeks for 12 months, in a week Return to clinic in 1 week to start maintenance therapy with durvalumab Signed By: Nuno Campbell M.D. <<Signature on File>>
== END 2020-07-12 23:59 | disposition home or self-care (01) ==
LOC: ONCMED 05:24
PROVIDERS: Nurse Practitioner; Absent Provider Radiology Radiation Oncology; Visit Provider Internal Medicine Hematology & Oncology
DX: Z51.0 Encounter for antineoplastic radiation therapy (principal); Z51.11 Encounter for antineoplastic chemotherapy; C34.11 Malignant neoplasm of upper lobe, right bronchus or lung; J44.9 Chronic obstructive pulmonary disease, unspecified; I73.9 Peripheral vascular disease, unspecified; I25.10 Atherosclerotic heart disease of native coronary artery without angina pectoris; Z79.899 Other long term (current) drug therapy
CPT/HCPCS: 36591; 77336; 77386; 80053; 85025; 96367; 96372; 96375; 96413; 96417; 99214; 99215; J1100; J1200; J2469; J3490; J7030; J7050; J9045; J9267; Q5101

== ENCOUNTER 2020-07-07 09:32 | Emergency (ER) | payer OTHER, MEDICARE, SELFPAY ==
--- NOTE | 2020-07-07 09:34 | XR_ITS ---
WS: [id number] Exam: XR chest 1V portable [id number] Date/Time of Exam: 07/07/2020 10:00 AM Reason For Exam: chest pain Comparison 02/06/2020. Ill-defined 2.7 cm soft tissue nodule in the upper lobe of the right lung shows little change. No oth er suspicious nodules. The lungs are otherwise clear and hyperinflated. Normal heart size and mediast inal contour. Left-sided subclavian port ends in the lower one third of the SVC. XR/XR chest 1V portable [id number] IMPRESSION: 1. Ill-defined 2.7 cm soft tissue nodule in the right upper lobe which is been noted previously. No new nodules or masses are seen. No acute infiltrates.
--- NOTE | 2020-07-07 09:34 | ECG_ITS ---
[facility] Test Date: 2020-07-07 Pat Name: Marbin Funez Department: Room: Gender: Male Success Coach: : 1945 Requested By: Bharath Medeiros Order Number: [id number] Rony MD: Cornell Hoover M.D. Measurements Intervals [place] Rate: 99 P: -28 ME: 164 QRS: 64 QRSD: 97 T: 58 QT: 330 QTc: 425 Interpretive Statements SINUS RHYTHM Compared to ECG 11/26/2019 13:09:41 T-wave abnormality no longer present Electronically Signed On 07-07-2020 17:37:38 ELECTRICAL REPAIRER by Cornell Hoover M.D. [id number]
[2020-07-07 09:59] VITALS: BP 146/67; PULSE 103; RESP 21; TEMP 36.6; O2SAT 98; BMI 26.5
[2020-07-07 10:04] VITALS: BP 106/64; PULSE 101; RESP 20; O2SAT 97
--- NOTE | 2020-07-07 10:16 | W.ED.CHESTPA ---
HPI - Chest Pain General: Chief Complaint: Chest Pain Stated Complaint: heart issues, cancer pt Time Seen by Provider: 07/07/20 09:34 History of Present Illness: HPI narrative: 74-year-old male presents to the emergency room with complaint of chest pain. He has had this for several months. He is a known history of coronary disease and about 3 months ago he had angiogram with stents placed this was done at the [facility] [place]. He states since then he is intermittently had chest pain that usually after eating is somewhat relieved by antacids. In addition to this he has lung cancer that was diagnosed in December 2019 for which she is recently been undergoing radiation and chemotherapy for. He is seen by oncology today and referred here because of the chest pain. MD complaint: chest discomfort Pertinent past history: coronary artery disease and other (lung CA) Onset (ago): week(s) Timing of current episode: episodic Prior episodes: Yes Onset: during rest Pain location: substernal and epigastric Pain radiation: none Severity: mild Quality: aching and heaviness Relieving factors: nothing Exacerbating factors: eating Context: other (Cancer ongoing treatment) Associated symptoms: Reports nausea; Deny abdominal pain, diaphoresis, dyspnea, fever(s), leg edema, palpitations, sense of impending doom, syncope or vomiting Treatment prior to arrival: none Review of Systems Const: Denies: fever(s) or diaphoresis ENMT: Denies: throat pain, ear or mastoid pain, nasal discharge or nasal congestion Card: Denies: palpitations or syncope Resp: Denies: dyspnea GI: Reports: nausea; Denies: abdominal pain or vomiting : Denies: flank pain, dysuria, urinary frequency or urinary urgency Skin/Breast: Denies: rash or pruritus PFSH ED PFSH: Medical History Bladder cancer Lung nodule PVD (peripheral vascular disease) Type 2 diabetes mellitus with diabetic polyneuropathy Surgical History H/O colonoscopy H/O esophagogastroduodenoscopy (04/01/20) H/O heart artery stent History of bladder surgery History of bronchoscopy History of surgical removal of pilonidal cyst Port-A-Cath in place (04/01/20) Family History Other CAD (coronary artery disease) Cancer Diabetes Hyperlipidemia Hypertension Lung disease Denies family history of Clotting disorder Dementia Psychiatric illness Chronic kidney disease (CKD) Suicide Anesthesia complication Bleeding disorder Family history of premature coronary artery disease Stroke Social History Smoking and tobacco status: former smoker Quit status (tobacco): has quit using tobacco Year quit tobacco: 06-17 PPD x 45 Years Alcohol intake: never Lives independently: Yes Household members: spouse Marital status: service: Yes Current occupational status: retired History of recent travel: No Current gender identity: Male Physical Exam Const: COMMON NORMALS: no acute distress GENERAL APPEARANCE: cooperative and comfortable ORIENTATION/CONSCIOUSNESS: Yes awake, Yes oriented to person, Yes oriented to place and Yes oriented to time HENMT: COMMON NORMALS: normocephalic, atraumatic and hearing grossly normal bilaterally HEAD & SCALP: normocephalic and atraumatic Neck/C-Spine: COMMON NORMALS: no JVD Lymph: LYMPHATIC: no lymphadenopathy noted and no lymphedema noted Resp: COMMON NORMALS: normal respiratory effort, No retractions, No use of accessory muscles and clear to auscultation bilaterally AUSCULTATION: clear to auscultation bilaterally Cardio: COMMON NORMALS: no JVD, regular rate, regular rhythm and No murmurs present (Cardio) RATE: regular rate RHYTHM: regular rhythm GI: COMMON NORMALS: Soft to palpation and No hepatosplenomegaly present AUSCULTATION: Yes normoactive bowel sounds PALPATION: Yes Soft to palpation, No Tenderness to palpation present (GI), No Guarding due to palpation present (GI) and Yes No hepatosplenomegaly present Extremity: COMMON NORMALS: normal to inspection, capillary refill normal, no clubbing, cyanosis or edema, no calf tenderness and no pedal edema Neuro: SENSORIUM/ORIENTATION: Yes oriented to person, Yes oriented to place and Yes oriented to time Skin: COMMON NORMALS: no rashes or lesions noted GENERAL SKIN EXAM: no rashes or lesions noted Course Vital Signs: Vital signs: Vital Signs Temperature 98.4 F 07/07/20 12:01 Pulse Rate 98 07/07/20 12:01 Respiratory Rate 17 07/07/20 12:01 Blood Pressure 129/67 07/07/20 12:01 Pulse Oximetry 98 07/07/20 12:01 MDM - Chest Pain MDM Narrative: Medical decision making narrative: She has had the symptoms almost daily exacerbated by eating for several weeks now. Is EKGs and troponins are negative. We will go ahead and discharge him home have him follow-up with a Lexiscan sestamibi stress test or cardiology follow-up with Dr. Campbell as planned. Additionally will start him on a PPI. Return if has further problems. Lab Data: Labs: Lab Results 07/07/20 07/07/20 07/07/20 Range/Units 10:23 10:23 10:23 WBC 3.3 L (4.0-10.0) 10^3/ uL RBC 3.10 L (4.1-5.3) 10^6/u L Hgb 9.5 L (11.7-16.6) g/dL Hct 29.2 L (42.0-52.0) % MCV 94.2 H (80-94) fL MCH 30.6 (28.0-34.0) pg MCHC 32.5 (30.0-36.0) g/dL RDW 16.8 H (12.1-15.1) % Plt Count 194 (130-400) 10^3/c mm MPV 8.6 (7.4-10.4) fL Neut % (Auto) 36.7 % Lymph % (Auto) 33.8 % Gaines % (Auto) 24.7 % Eos % (Auto) 2.4 % Baso % (Auto) 1.5 % Neut # (Auto) 1.20 L (1.8-7.7) 10^3/u L Lymph # (Auto) 1.1 (0.8-4.8) 10^3/u L Gaines # (Auto) 0.8 (0.2-0.9) 10^3/u L Eos # (Auto) 0.1 (0.0-0.8) 10^3/u L Baso # (Auto) 0.1 (0.0-0.1) 10^3/u L Nucleated RBC % (a uto) 0 % Nucleated RBCs # 0.0 /100WBC D-Dimer 0.59 (0-0.59) ug/mIFE U Sodium 135 L (136-145) mmol/L Potassium 3.8 (3.5-5.1) mmol/L Chloride 98 (98-107) mmol/L Carbon Dioxide 28 (22-29) mmol/L Anion Gap 12.8 (5-19) BUN 13 (8-23) mg/dL Creatinine 0.5 L (0.7-1.2) mg/dL GFR Calculation Not Reportable Glucose 156 H (65-115) mg/dL Calculated Osmolal ity 283 L (285-295) mOsm/k g Calcium 9.3 (8.5-10.5) mg/dL Total Bilirubin 0.2 (0.15-1.2) mg/dL AST 16 (0-40) U/L ALT 22 (0-41) U/L Alkaline Phosphata se 57 (40-130) IU/L Troponin T Baselin e (0-15) ng/L Total Protein 6.2 L (6.6-8.7) g/dL Albumin 3.6 (3.5-5.2) g/dL Globulin 2.6 (1.3-4.6) g/dL 07/07/20 Range/Units 10:23 WBC (4.0-10.0) 10^3/ uL RBC (4.1-5.3) 10^6/u L Hgb (11.7-16.6) g/dL Hct (42.0-52.0) % MCV (80-94) fL MCH (28.0-34.0) pg MCHC (30.0-36.0) g/dL RDW (12.1-15.1) % Plt Count (130-400) 10^3/c mm MPV (7.4-10.4) fL Neut % (Auto) % Lymph % (Auto) % Gaines % (Auto) % Eos % (Auto) % Baso % (Auto) % Neut # (Auto) (1.8-7.7) 10^3/u L Lymph # (Auto) (0.8-4.8) 10^3/u L Gaines # (Auto) (0.2-0.9) 10^3/u L Eos # (Auto) (0.0-0.8) 10^3/u L Baso # (Auto) (0.0-0.1) 10^3/u L Nucleated RBC % (a uto) % Nucleated RBCs # /100WBC D-Dimer (0-0.59) ug/mIFE U Sodium (136-145) mmol/L Potassium (3.5-5.1) mmol/L Chloride (98-107) mmol/L Carbon Dioxide (22-29) mmol/L Anion Gap (5-19) BUN (8-23) mg/dL Creatinine (0.7-1.2) mg/dL GFR Calculation Glucose (65-115) mg/dL Calculated Osmolal ity (285-295) mOsm/k g Calcium (8.5-10.5) mg/dL Total Bilirubin (0.15-1.2) mg/dL AST (0-40) U/L ALT (0-41) U/L Alkaline Phosphata se (40-130) IU/L Troponin T Baselin e 15 (0-15) ng/L Total Protein (6.6-8.7) g/dL Albumin (3.5-5.2) g/dL Globulin (1.3-4.6) g/dL Discharge Plan Discharge Patient Disposition: Home Clinical Impression: Non-small cell lung cancer, Chest pain due to GERD, CAD (coronary artery disease), Anemia, Hemoptysis Condition: Stable Prescriptions: New Protonix 40 mg tablet,delayed release (DR/EC) 40 mg PO DAILY 56 Days RF: 0 No Action cholecalciferol (vitamin D3) 25 mcg (1,000 unit) capsule 25 mcg PO DAILY RF: 0 acarbose 100 mg tablet 100 mg PO TID RF: 0 metformin 850 mg tablet 850 mg PO TID RF: 0 lisinopril 40 mg tablet 40 mg PO DAILY RF: 0 aspirin 81 mg tablet,delayed release (DR/EC) 81 mg PO DAILY RF: 0 atorvastatin 80 mg tablet 80 mg PO DAILY RF: 0 cilostazol 50 mg tablet 50 mg PO BID RF: 0 Centrum Silver 0.4-300-250 mg-mcg-mcg tablet 1 tab PO DAILY RF: 0 insulin aspart U-100 [Novolog Flexpen U-100 Insulin] 100 unit/mL (3 mL) insulin pen 5 unit SUBCUT TID RF: 0 insulin glargine 100 unit/mL (3 mL) insulin pen 40 unit SUBCUT DAILY RF: 0 (DME) Sole supports Qty: 1 RF: 0 (DME) Custom orthotics See Rx Instructions .Route .MEDSUPPLY Qty: 1 RF: 0 duloxetine 30 mg capsule,delayed release(DR/EC) 30 mg PO DAILY RF: 0 tizanidine 4 mg capsule 4 mg PO Q8H PRN (Reason: Muscle Spasm) RF: 0 Trelegy Ellipta 100-62.5-25 mcg blister with device 1 inh inhalation Q24H RF: 0 Discharge Orders: Discharge ED (Routine); Ordered 07/07/20 Ordered By: Bharath Rodarte Referrals: Shavonne Biswas MD [Primary Care Provider] - Discharge Diet: Usual diet Discharge Activity: Increase activity as tolerated Patient Instructions: Opioid Safety Coding Level of Care Code ED Jewelry Model Maker for Carmen Rosas
[2020-07-07 10:26] VITALS: BP 106/64; PULSE 101; RESP 21; O2SAT 97
[2020-07-07 10:29] LABS: Basophils # 0.1 10^3/uL (0.0-0.1); Basophils % 1.5 %; Eosinophils # 0.1 10^3/uL (0.0-0.8); Eosinophils % 2.4 %; Hematocrit 29.2 % (42.0-52.0); Hemoglobin 9.5 g/dL (11.7-16.6); Lymphocytes # 1.1 10^3/uL (0.8-4.8); Lymphocytes % 33.8 %; Mean Corpuscular HGB Conc 32.5 g/dL (30.0-36.0); Mean Corpuscular Hemoglobin 30.6 pg (28.0-34.0); Mean Corpuscular Volume 94.2 fL (80-94); Mean Platelet Volume 8.6 fL (7.4-10.4); Monocytes # 0.8 10^3/uL (0.2-0.9); Monocytes % 24.7 %; Neutrophils % 36.7 %; Nucleated Red Blood Cells % 0 %; Platelet Count 194 10^3/cmm (130-400); Red Cell Distribution Width 16.8 % (12.1-15.1); White Blood Count 3.3 10^3/uL (4.0-10.0)
[2020-07-07 10:56] LABS: D Dimer 0.59 ug/mIFEU (0-0.59)
[2020-07-07 10:57] LABS: Alanine Aminotransferase 22 U/L (0-41); Albumin Level 3.6 g/dL (3.5-5.2); Alkaline Phosphatase 57 IU/L (40-130); Anion Gap 12.8 (5-19); Aspartate Amino Transferase 16 U/L (0-40); Blood Urea Nitrogen 13 mg/dL (8-23); Calcium 9.3 mg/dL (8.5-10.5); Carbon Dioxide 28 mmol/L (22-29); Chloride 98 mmol/L (98-107); Globulin 2.6 g/dL (1.3-4.6); Glucose 156 mg/dL (65-115); Osmolality Calculated 283 mOsm/kg (285-295); Potassium 3.8 mmol/L (3.5-5.1); Sodium 135 mmol/L (136-145); Total Bilirubin 0.2 mg/dL (0.15-1.2); Total Protein 6.2 g/dL (6.6-8.7)
[2020-07-07 10:58] LABS: Troponin(5th) Baseline 15 ng/L (0-15)
[2020-07-07 11:02] LABS: Creatinine Clr Calc Pharmacy 87.3054
--- NOTE | 2020-07-07 11:47 | PC.CHAP ---
Pastoral Care Encounter/Spiritual Assessment Type of Contact [] Declined special effects artist visit [] Patient/Family/Request visit [] Outpatient visit [] Follow-up visit [] Physician referral [] Code/Alert [] Routine visit [] Staff referral [] Actively dying [] Patient sleeping [x] Family support [] [] Out of room [] Palliative care [] [] Receiving care in room [] Pre-surgical visit [] Trauma [] Long length of stay [] ICU visit [x] Other: ER visit Relational/Emotional Strength [x] Patient feels connected with others/family/visitors/staff [] Distress [] Loneliness/isolation [] Abandonment Spirituality of Patient [x] Person of [place] [x] Attends Yazdanism of their [place] [x] Believes in Prayer [x] Reads Bible or Church materials [] There are Spiritual issues to be addressed [employer] Interventions [x] Prayer [x] Active listening [x] Non-anxious presence [x] Spiritual/emotional support [] Crisis/trauma care [] Spiritual counseling [] Bereavement support [] Provided bereavement packet [] Provided Bible/devotional materials [] Provided toy/stuffed animal, coloring book to patient or family member [] Provided Communion [] Anointing/[place] [] Salvation [] Completed spiritual assessment [] Other: Impact on Illness or Injury [] Angry [] Fearful [] Anxious [] Often cries [] Exhaustion [] Unable to work [] Unable to attend zoroastrian [] Unable to walk/stand [] Unable to read [] Unable to drive [] Unable to eat/drink [] Unable to sleep [] Unable to be with family [] Patient intubated [] Other: Summary special effects artist visit with patient and his . Offering words of encouragement and having prayer. Time spent with patient 15 min
[2020-07-07 12:01] VITALS: BP 129/67; PULSE 98; RESP 17; TEMP 36.9; O2SAT 98
== END 2020-07-07 12:02 | disposition home or self-care (01) ==
PROVIDERS: Emergency Provider Family Medicine; PCP Family Medicine
DX: K21.9 Gastro-esophageal reflux disease without esophagitis (principal); I25.10 Atherosclerotic heart disease of native coronary artery without angina pectoris; D64.9 Anemia, unspecified; R04.2 Hemoptysis; C34.90 Malignant neoplasm of unspecified part of unspecified bronchus or lung; Z79.82 Long term (current) use of aspirin; Z79.4 Long term (current) use of insulin; Z85.51 Personal history of malignant neoplasm of bladder; E11.9 Type 2 diabetes mellitus without complications; Z87.891 Personal history of nicotine dependence
CPT/HCPCS: 71045; 80053; 84484; 85025; 85378; 93005; 99283

== ENCOUNTER 2020-07-28 05:18 | Outpatient (RCR) | payer OTHER, MEDICARE, SELFPAY ==
[2020-07-15 13:35] LABS: Basophils # 0.1 10^3/uL (0.0-0.1); Basophils % 0.7 %; Eosinophils # 0.4 10^3/uL (0.0-0.8); Hemoglobin 10.5 g/dL (11.7-16.6); Lymphocytes % 26.8 %; Mean Corpuscular HGB Conc 32.8 g/dL (30.0-36.0); Mean Corpuscular Hemoglobin 31.4 pg (28.0-34.0); Mean Corpuscular Volume 95.8 fL (80-94); Mean Platelet Volume 9.2 fL (7.4-10.4); Monocytes # 0.9 10^3/uL (0.2-0.9); Monocytes % 11.9 %; Neutrophils % 55.1 %; Nucleated Red Blood Cells % 0 %; Platelet Count 181 10^3/cmm (130-400); Red Blood Count 3.34 10^6/uL (4.1-5.3); Red Cell Distribution Width 18.2 % (12.1-15.1); White Blood Count 7.5 10^3/uL (4.0-10.0)
[2020-07-15 14:26] LABS: Alanine Aminotransferase 23 U/L (0-41); Albumin Level 3.9 g/dL (3.5-5.2); Alkaline Phosphatase 62 IU/L (40-130); Anion Gap 14.2 (5-19); Aspartate Amino Transferase 20 U/L (0-40); Blood Urea Nitrogen 10 mg/dL (8-23); Calcium 9.8 mg/dL (8.5-10.5); Carbon Dioxide 27 mmol/L (22-29); Chloride 98 mmol/L (98-107); Globulin 2.6 g/dL (1.3-4.6); Glucose 129 mg/dL (65-115); Osmolality Calculated 281 mOsm/kg (285-295); Potassium 4.2 mmol/L (3.5-5.1); Sodium 135 mmol/L (136-145); Total Bilirubin 0.3 mg/dL (0.15-1.2); Total Protein 6.5 g/dL (6.6-8.7)
--- NOTE | 2020-07-24 11:53 | ONCRAD EPV_ITS ---
Radiation Oncology Follow-Up Note Patient Name: Marbin Funez Date of : 1945 Date of Service: 07/24/2020 Attending Physician: Dionisio Cherry M.D. Marbin Funez returned to my office this morning for a routinely scheduled follow-up appointment. 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 Daily radiotherapy was administered between the dates of May 11, 2020 through June 23, 2020. ???A prescribed dose of 60 Gy was delivered in 30 fractions encompassing 43 elapsed days. On review of systems, he denied any constitutional complaints including unintentional weight loss or fevers of unknown origin. He did not report On physical examination, he weighed 187 lbs and the temperature was 97.9???F. His blood pressure was 111/63 mmHg. The pulse was 90 bpm and the respiratory rate was 20 breaths per minute. His oxygen saturation while breathing ambient air was 98%. Auscultation of the posterior lung cramer identified bronchial breath sounds. In summary, Marbin Funez returned for a routine post-radiotherapy follow-up. He will begin maintenance durvalumab supervision of his medical oncologist. Signed by: Dr. Dionisio Cherry 07/24/2020 11:52:37 AM
[2020-07-28 11:53] LABS: Basophils % 0.5 %; Eosinophils # 0.6 10^3/uL (0.0-0.8); Eosinophils % 6.9 %; Hematocrit 31.6 % (42.0-52.0); Hemoglobin 10.6 g/dL (11.7-16.6); Lymphocytes # 1.9 10^3/uL (0.8-4.8); Lymphocytes % 21.9 %; Mean Corpuscular HGB Conc 33.5 g/dL (30.0-36.0); Mean Corpuscular Hemoglobin 32.3 pg (28.0-34.0); Mean Corpuscular Volume 96.3 fL (80-94); Monocytes # 0.9 10^3/uL (0.2-0.9); Neutrophils # 5.16 10^3/uL (1.8-7.7); Neutrophils % 60.5 %; Nucleated Red Blood Cells % 0 %; Platelet Count 186 10^3/cmm (130-400); Red Blood Count 3.28 10^6/uL (4.1-5.3); Red Cell Distribution Width 17.7 % (12.1-15.1); White Blood Count 8.5 10^3/uL (4.0-10.0)
[2020-07-28 12:34] LABS: Alanine Aminotransferase 17 U/L (0-41); Albumin Level 3.9 g/dL (3.5-5.2); Alkaline Phosphatase 59 IU/L (40-130); Aspartate Amino Transferase 16 U/L (0-40); Blood Urea Nitrogen 10 mg/dL (8-23); Calcium 9.3 mg/dL (8.5-10.5); Carbon Dioxide 28 mmol/L (22-29); Chloride 94 mmol/L (98-107); Globulin 2.7 g/dL (1.3-4.6); Glucose 68 mg/dL (65-115); Osmolality Calculated 271 mOsm/kg (285-295); Sodium 132 mmol/L (136-145); Thyroid Stimulating Hormone 1.76 uIU/mL (0.27-4.20); Total Bilirubin 0.4 mg/dL (0.15-1.2); Total Protein 6.6 g/dL (6.6-8.7)
[2020-07-28] MEDS: sodium chloride 0.9% 250 ML 75 ML IV (14:28)
--- NOTE | 2020-07-28 14:35 | ONC FU_ITS ---
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 Funez is a 74-year-old gentleman with a history of COPD. He went to [facility] on November 26, 2019 with 3-day history of right flank pain. He reported his pain was radiating to with right pelvis. A CT scan of abdomen pelvis was done on November 26, 2019 which showed no urinary tract calculus or obstruction normal appendix; calcified right lower lobe pulmonary granuloma. On January 09, 2020, he had a chest x-ray done for chest pain and found to have right upper lung mass. He subsequently underwent CT scan of chest which confirmed right upper lobe lung mass measuring 2.7 x 3.1 cm. The lesion was subpleural and also showed mediastinal and hilar lymphadenopathy. He underwent transthoracic needle biopsy on February 06, 2020. He also underwent bronchoscopy and transbronchial needle aspiration of station 4R and 10 R lymph node. 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 Immunohistochemistry were negative for TTF-1, Napsin and p63 and CK 20 so based on this immunoprofile tumor was not overtly designated as a lung primary. Mr Funez has history of coronary artery disease status post stent placement and also has peripheral vascular disease. Patient denies any hemoptysis or hematemesis, denies any weight loss, denies any poor appetite,. Denies any headaches blurred vision or double vision. As per patient he has history of bladder cancer, diagnosed in 2006 or 8 at that time tumor was removed and he was given intravesical therapy. And followed by yearly exam until recently with no evidence of recurrence of disease. He also has history of neuropathy involving both feet probably due to peripheral vascular disease. He was evaluated by a vascular surgeon for intervention stenting or arterial bypass , As per patient bilateral femoral artery stenting was done on April 15, 2020 And on same day he underwent coronary artery stenting done, tolerated procedure very well and he was started on Plavix and aspirin. PET/CT scan from March 10, 2020 showed marked increase of metabolic activity in the anterior right upper lung lobe size about 2.6 x 3.2 cm consistent with neoplasia and there is extensive mediastinal lymph node involvement of anterior/prevascular lymph nodes, right paratracheal, precarinal with an index lesion measuring 1.4 x 2.0 cm with SUV of 6.75 and right hilar lymph node. No evidence of distant metastatic disease MRI scan of the brain done on April 06, 2020 showed no evidence of metastatic disease Tumor marker CA 19???9 was 18.37, PSA 0.673, and CEA 138.7., Patient had ENT evaluation done which shows no evidence of head or neck cancer EGD Was done on April 01, 2020, it was normal exam, As per patient he had colonoscopy done last year and it was unremarkable Mr Funez was offered treatment with concurrent chemoradiation and started with weekly carboplatin/Taxol on May 11, 2020. He has tolerated it well but has required growth factor support for neutropenia. He completed combined chemoradiation therapy on June 23, 2020 Came for follow-up, complaining of off and on substernal chest pain, indigestion, off and on hemoptysis, completed radiation therapy about 2 weeks ago, overall his symptoms are improving but still problem with swallowing especially with water. Otherwise no fever chills no nausea or vomiting no diarrhea or constipation as per patient sometime he feels short of breath with chest pain but no palpitation no pain radiating to left arm, pain is mostly in the substernal area. Patient has history of coronary artery disease and underwent coronary artery stenting prior to combined chemoradiation treatment. Mr Funez is here today for followup and to start his first does on Infinzi. He states overall he feels ok . He is still having hemoptysis. He had followup with Dr Zhu on 07/09/2020. He was still having intermittent hemoptysis at that time as well and Dr Zhu's not indicated he was still doing observation and to contact Dr Zhu if his symptoms worsened. mr Funez states it is about the same. He denies any fever or chills. He denies any worsening shortness of breath. He denies any chest pains or palpitations. He denies any new pain. He has no new concerns today. His bowel and bladder functions are normal for him. He denies any nausea or vomiting. He denies swelling in his feet or ankles. His ECOG is 1. Past Medical History: Peripheral neuropathy Peripheral vascular disease Type II diabetes History of bladder cancer in 2006 Past Surgical History: EGD PORTHACATHER PLACEMENT DR. PARK Stent placment Colonoscopy in 2019 Allergies: No Known Allergies. Medications: Acarbose 1 Tablet (of 100 mg) Oral t.i.d. Aspirin 1 Tablet (of 81 mg) Tablet, enteric coated Oral daily Atorvastatin Calcium 1 Tablet (of 80 mg) Oral daily Carvedilol 0.5 Tablet (of 6.25 mg) Oral b.i.d. Cetirizine HCl 1 Tablet (of 10 mg) Oral daily Cholecalciferol 1 Capsule (of 25 mcg ) Oral daily Cilostazol 1 Tablet (of 50 mg) Oral b.i.d. dilTIAZem HCl 1 Tablet (of 30 mg) Oral t.i.d. DULoxetine HCl 1 Capsule (of 30 mg) Capsule Delayed Release Particles Oral daily Furosemide 1 Tablet (of 20 mg) Oral daily hydroCHLOROthiazide 1 Tablet (of 25 mg) Oral daily Insulin Glargine 10 Units (of 100 Units/mL) Subcutaneous daily Lactulose Solution Oral PRN Levothyroxine Sodium 1 Tablet (of 25 mcg) Oral daily Lisinopril 1 Tablet (of 40 mg) Oral daily metFORMIN HCl 1 Tablet (of 850 mg) Oral t.i.d. Multivitamin 1 Tablet Oral daily Naproxen 1 Tablet (of 250 mg) Oral q 8 hours PRN NovoLOG 5 Units (of 100 Units/mL) Subcutaneous t.i.d. Pantoprazole Sodium 1 Tablet (of 20 mg) Tablet, enteric coated Oral daily prednisoLONE 1 Tablet (of 5 mg) Oral daily Rosuvastatin Calcium 1 Tablet (of 10 mg) Oral daily Theophylline ER 0.5 Capsule (of 400 mg) Capsule SR 24 HR Oral daily tiZANidine HCl 1 Capsule (of 2 mg) Oral q 8 hours PRN Trelegy Ellipta Aerosol Powder, Breath Activated Inhalation Family History: Mr. Funez's mother is alive. Mr. Funez's father at age 69: lung cancer. Mr. Funez has 1 brother who is : stroke. He has 1 sister who is : stroke. Social History: Mr. Funez is and he is an unknown. Mr. Fnuez quit smoking 14 years ago but had smoked 2.5 packs/day for 50 years. He has no history of drinking. Review Of Symptoms: Constitutional Denies fevers, chills, night sweats, excessive fatigue or weight loss. Allergic/Immunologic No reactions. Eyes Denies significant visual changes. No diplopia. No amaurosis. ENMT Denies changes in hearing, mouth sores, and/or sinus drainage. Sore throat-see above. Hematologic/Lymphatic Denies easy bruising or bleeding. The patient denies any tender or palpable lymph nodes. Respiratory no new shortness of breath but persistent hemoptysis. Cardiovascular Denies anginal chest pain, palpitations or orthopnea. Gastrointestinal Denies nausea, vomiting, diarrhea, GI bleeding, or constipation. Denies change in bowel habits and/or stool color, no heartburn or early satiety. Genitourinary (M) Denies hematuria, dysuria, increased frequency, urgency, hesitancy or incontinence. Musculoskeletal Denies joint pain, swelling or redness. No decreased range of motion. Integumentary Denies chronic rashes, inflammation, ulcerations or skin changes. Neurologic Denies headache, blurred vision, and no areas of focal weakness or numbness. Normal gait. No sensory problems. Psychiatric Denies insomnia, depression, ahsan or mood swings. Vital Signs: Performed on Jul 15, 2020 14:46 Height - 70.00 in Weight - 188.0 lbs (HIGH) BSA - 2.03 sq.m BMI - 26.98 Temperature - 97.4 F (LOW) Pulse - 116 /min (HIGH) Respiration - 19 /min BP - 118/65 mm(hg) O2 Sat - 96 % Pain - 0,1 - No physically strenuous activity, but ambulatory and able to carry out light or sedentary work (e.g. office work, light house work). (ECOG) Physical Examination: Constitutional Alert, oriented, no acute distress. Skin pink, warm and dry. Head Normocephalic; atraumatic. Eyes Conjunctivae and sclerae are clear and without icterus. Pupils are reactive and equal. Neck Supple without masses or thyromegaly. No jugular venous distension. Respiratory Lungs are diminished to auscultation without rhonchi or wheezing. Cardiovascular Regular rate and rhythm of heart without murmurs,clicks, gallops or rubs. Back/Spine Non-tender to palpation. Extremities No visible deformities, no cyanosis, clubbing or edema. Musculoskeletal No tenderness or swelling, normal range of motion without obvious weakness. Integumentary No rashes or lesions. Neurologic No sensory or motor deficits, normal cerebellar function, normal gait. Psychiatric Alert and oriented times three. Coherent speech. Verbalizes understanding of our discussions today. Laboratory:Test performed on Jul 15, 2020 13:07 Sodium 135 mmol/L Potassium 4.2 mmol/L Chloride 98 mmol/L CO2 27 mmol/L Anion Gap 14.2 BUN 10 mg/dL Creatinine 0.6 mg/dL Cr Clearance (Est) 125.0300 mL/min Glucose 129 mg/dL Osmolality - Calculated 281 mOsm/kg Calcium 9.8 mg/dL Protein, Total 6.5 g/dL Albumin 3.9 g/dL Globulin 2.6 g/dL Bilirubin, Total 0.3 mg/dL ALT (SGPT) 23 U/L AST (SGOT) 20 U/L Alkaline Phosphatase 62 IU/L WBC 7.5 10 3/uL RBC 3.34 10 6/uL HGB 10.5 g/dL HCT 32.0 % MCV 95.8 fL MCH 31.4 pg MCHC 32.8 g/dL RDW 18.2 % Platelet Count 181 10 3/cmm MPV 9.2 fL Neutrophils 4.10 10 3/uL Lymphocytes 2.0 10 3/uL Monocytes 0.9 10 3/uL Eosinophils 0.4 10 3/uL Basophils 0.1 10 3/uL Neutrophil % 55.1 % Lymphocyte % 26.8 % Monocyte % 11.9 % Eosinophil % 5.0 % Basophils % 0.7 % NRBC % 0 % Test performed on Jun 19, 2020 08:40 CBC Slide Review Slide Review Perform SLIDE REVIEW AGREES WITH AUTOMATED RESULTS ANT REINA CELLS Test performed on May 27, 2020 14:45 SARS-CoV-2 RNA (COVID-19) NOT DETECTED A Not Detected (negative) test result for this test means that SARS- CoV-2 RNA was not present in the specimen above the limit of detection. A negative result does not rule out the possibility of COVID-19 and should not be used as the sole basis for treatment or patient management decisions. If COVID-19 is still suspected, based on exposure history together with other clinical findings, re-testing should be considered in consultation with public health authorities. Laboratory test results should always be considered in the context of clinical observations and epidemiological data in making a final diagnosis and patient management decisions. Please review the Fact Sheets and FDA authorized labeling available for health care providers and patients using the following websites: [email or web address]/ fact-[email or web address] This test has been authorized by the FDA under an Emergency Use Authorization (EUA) for use by authorized laboratories. Due to the current public health emergency, [facility] is receiving a high volume of samples from a wide variety of swabs and media for COVID-19 testing. In order to serve patients during this public health crisis, samples from appropriate clinical sources are being tested. Negative test results derived from specimens received in non-commercially manufactured viral collection and transport media, or in media and sample collection kits not yet authorized by FDA for COVID-19 testing should be cautiously evaluated and the patient potentially subjected to extra precautions such as additional clinical monitoring, including collection of an additional specimen. Methodology: Nucleic Acid Amplification Test (NAAT) includes RT-PCR or TMA Additional information about COVID-19 can be found at the [facility] website: [email or web address]. THIS TEST WAS PERFORMED AT: [facility] [id number] [place] [id number] VISHNU RODRIGUEZ DO,MPH Test performed on May 27, 2020 14:36 Ua Color Yellow Ua Appearance Clear Ua Glucose Trace Ua Bilirubin Neg Ua Ketones Negative Ua Specific [place] 1.020 Ua Blood Neg Ua pH 5 Ua Protein Neg Ua Nitrites Negative Ua Leukocyte Esterase Negative Test performed on May 26, 2020 00:00 Manual Diff DUPLICATE TEST ST Test performed on Feb 25, 2020 12:10 CA 19-9 18.37 U/mL CEA 138.7 ng/mL PSA 0.673 ng/mL 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 CT scan of abdomen pelvis done in November 2019 showed no evidence of metastatic disease ENT, EGD evaluation showed no evidence of head and neck cancer, as per Patient, he had colonoscopy done last year it was unremarkable tumor marker CA 19???9 18.37 CEA [address] PET scan done on March 10, 2020 showed right upper lobe mass measuring 2.6 x 3.2 cm with SUV of 10.30, extensive mediastinal lymphadenopathy along with right hilar lymph node. No distant metastatic disease a single rib, right 10th rib laterally demonstrated on heparin fracture with callus formation .MRI scan of the head done on April 06, 2020 showed no evidence of metastatic disease, Clinical stage IIIa Started on combined chemoradiation with weekly carboplatin/Taxol on May 11, 2020 Completed on June 23, 2020 Diabetes and related complication ? diabetic neuropathyOr vascular as patient has been severe peripheral vascular disease involving bilateral feet Peripheral vascular disease,Status post bilateral femoral arterial stenting Done on April 15, 2020 CAD status post stent placement.Due to progressive coronary artery disease coronary artery stenting Done on April 15, 2020 Plan: PROBLEMS ADDRESSED TODAY 1. Right lung cancer-poorly differentiated adenosquamous. He completed combined chemoradiation with Carboplatin/paclitaxel on 06/23/2020. A. Persistent hemoptysis B. Labs from today were reviewed in detail and discussed with Mr Funez and a copy was given to him. WBC 7.5, Hgb 10.5, platelets 181,000, ANC 4100. Creatinine 0.6, LFTs normal. C. Dr Campbell discussed with [place] the role of maintenance therapy with durvalumab every 2 weeks for 12 months. He is having persistent hemoptysis. His last PET/CT imaging was on 03/10/2020. D. Will delay initiation of durvalumab and repeat PET/CT imaging for posttreatment followup and persistent hemoptysis. E. Plan to return with followup visit and CBC, CMP and TSH after PET/CT imaging, hopefully within the next two or three weeks. F. Mr Funez was encouraged to call us in the interim if questions or problems arise. Signed By: Felipa Lucio-, CARO CENTERUmesh Campbell MD <<Signature on File>>
--- NOTE | 2020-07-28 16:48 | ONC FU_ITS ---
Dr. Campbell follow up note Patient: Marbin Funez V Unit #: [id number]: 1945 Dicatated By: Nuno Campbell M.D.Date of Visit:Jul 28, 2020 Onc Med Follow-up/Prog Note History of Present Illness: Mr. Funez is a 74-year-old gentleman with a history of COPD. He went to [facility] on November 26, 2019 with 3-day history of right flank pain. He reported his pain was radiating to with right pelvis. A CT scan of abdomen pelvis was done on November 26, 2019 which showed no urinary tract calculus or obstruction normal appendix; calcified right lower lobe pulmonary granuloma. On January 09, 2020, he had a chest x-ray done for chest pain and found to have right upper lung mass. He subsequently underwent CT scan of chest which confirmed right upper lobe lung mass measuring 2.7 x 3.1 cm. The lesion was subpleural and also showed mediastinal and hilar lymphadenopathy. He underwent transthoracic needle biopsy on February 06, 2020. He also underwent bronchoscopy and transbronchial needle aspiration of station 4R and 10 R lymph node. 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 Immunohistochemistry were negative for TTF-1, Napsin and p63 and CK 20 so based on this immunoprofile tumor was not overtly designated as a lung primary. Mr Funez has history of coronary artery disease status post stent placement and also has peripheral vascular disease. Patient denies any hemoptysis or hematemesis, denies any weight loss, denies any poor appetite,. Denies any headaches blurred vision or double vision. As per patient he has history of bladder cancer, diagnosed in 2007 or 8 at that time tumor was removed and he was given intravesical therapy. And followed by yearly exam until recently with no evidence of recurrence of disease. He also has history of neuropathy involving both feet probably due to peripheral vascular disease. He was evaluated by a vascular surgeon for intervention stenting or arterial bypass , As per patient bilateral femoral artery stenting was done on April 15, 2020 And on same day he underwent coronary artery stenting done, tolerated procedure very well and he was started on Plavix and aspirin. PET/CT scan from March 10, 2020 showed marked increase of metabolic activity in the anterior right upper lung lobe size about 2.6 x 3.2 cm consistent with neoplasia and there is extensive mediastinal lymph node involvement of anterior/prevascular lymph nodes, right paratracheal, precarinal with an index lesion measuring 1.4 x 2.0 cm with SUV of 6.75 and right hilar lymph node. No evidence of distant metastatic disease MRI scan of the brain done on April 06, 2020 showed no evidence of metastatic disease Tumor marker CA 19???9 was 18.37, PSA 0.673, and CEA 138.7., Patient had ENT evaluation done which shows no evidence of head or neck cancer EGD Was done on April 01, 2020, it was normal exam, As per patient he had colonoscopy done last year and it was unremarkable Mr Funez was offered treatment with concurrent chemoradiation and started with weekly carboplatin/Taxol on May 11, 2020. He has tolerated it well but has required growth factor support for neutropenia. He completed combined chemoradiation therapy on June 23, 2020 Follow-up CT PET scan done on July 25, 2020 showed right upper lobe mass measured 2.3 x 1.8 cm, with SUV of 3.2 compared to 2.6 x 3.[address] PET scan done on March 10, 2020 and the right upper lobe hilar lymph node with SUV of 4.5. Other scattered mediastinal lymph nodes are subcentimeter in size and FDG negative no evidence of distant mets Started on maintenance durvalumab every 2 weeks for 12 months on July 28, 2020 Came for follow-up, denies any specific complaints except off and on blood streaking his phlegm, not being followed by pulmonology, no fever chills, no nausea or vomiting, no diarrhea constipation, no jaundice, no new bony pains., Patient is here to start his maintenance immunotherapy Medications: Acarbose 1 Tablet (of 100 mg) Oral t.i.d., Aspirin 1 Tablet (of 81 mg) Tablet, enteric coated Oral daily, Atorvastatin Calcium 1 Tablet (of 80 mg) Oral daily, Carvedilol 0.5 Tablet (of 6.25 mg) Oral b.i.d., Cetirizine HCl 1 Tablet (of 10 mg) Oral daily, Cholecalciferol 1 Capsule (of 25 mcg ) Oral daily, Cilostazol 1 Tablet (of 50 mg) Oral b.i.d., dilTIAZem HCl 1 Tablet (of 30 mg) Oral t.i.d., DULoxetine HCl 1 Capsule (of 30 mg) Capsule Delayed Release Particles Oral daily, Furosemide 1 Tablet (of 20 mg) Oral daily, hydroCHLOROthiazide 1 Tablet (of 25 mg) Oral daily, Insulin Glargine 10 Units (of 100 Units/mL) Subcutaneous daily, Lactulose Solution Oral PRN, Levothyroxine Sodium 1 Tablet (of 25 mcg) Oral daily, Lisinopril 1 Tablet (of 40 mg) Oral daily, metFORMIN HCl 1 Tablet (of 850 mg) Oral t.i.d., Multivitamin 1 Tablet Oral daily, Naproxen 1 Tablet (of 250 mg) Oral q 8 hours PRN, NovoLOG 5 Units (of 100 Units/mL) Subcutaneous t.i.d., Pantoprazole Sodium 1 Tablet (of 20 mg) Tablet, enteric coated Oral daily, prednisoLONE 1 Tablet (of 5 mg) Oral daily, Rosuvastatin Calcium 1 Tablet (of 10 mg) Oral daily, Theophylline ER 0.5 Capsule (of 400 mg) Capsule SR 24 HR Oral daily, tiZANidine HCl 1 Capsule (of 2 mg) Oral q 8 hours PRN, Trelegy Ellipta Aerosol Powder, Breath Activated Inhalation Allergies: No Known Allergies. Review of Systems: Review of Systems is not available for this patient. Vital Signs: Performed on Jul 28, 2020 12:53 Height - 70.00 in Weight - 189.4 lbs (HIGH) BSA - 2.04 sq.m BMI - 27.18 Temperature - 98.3 F (LOW) Pulse - 112 /min (HIGH) Respiration - 18 /min BP - 110/64 mm(hg) O2 Sat - 96 % Pain - 0 Performance Status: 1 - No physically strenuous activity, but ambulatory and able to carry out light or sedentary work (e.g. office work, light house work). (ECOG) Physical Examination: ENMT - No mouth sores, no thrush, no jaundice, Respiratory - Lungs are clear to auscultation, Cardiovascular - Regular rate and rhythm of heart, Abdomen - Soft, bowel sounds present, Extremities - No visible edema. Lab/Imaging: Test performed on Jul 15, 2020 13:07 Sodium 135 mmol/L Potassium 4.2 mmol/L Chloride 98 mmol/L CO2 27 mmol/L Anion Gap 14.2 BUN 10 mg/dL Creatinine 0.6 mg/dL Cr Clearance (Est) 125.0300 mL/min Glucose 129 mg/dL Osmolality - Calculated 281 mOsm/kg Calcium 9.8 mg/dL Protein, Total 6.5 g/dL Albumin 3.9 g/dL Globulin 2.6 g/dL Bilirubin, Total 0.3 mg/dL ALT (SGPT) 23 U/L AST (SGOT) 20 U/L Alkaline Phosphatase 62 IU/L WBC 7.5 10 3/uL RBC 3.34 10 6/uL HGB 10.5 g/dL HCT 32.0 % MCV 95.8 fL MCH 31.4 pg MCHC 32.8 g/dL RDW 18.2 % Platelet Count 181 10 3/cmm MPV 9.2 fL Neutrophils 4.10 10 3/uL Lymphocytes 2.0 10 3/uL Monocytes 0.9 10 3/uL Eosinophils 0.4 10 3/uL Basophils 0.1 10 3/uL Neutrophil % 55.1 % Lymphocyte % 26.8 % Monocyte % 11.9 % Eosinophil % 5.0 % Basophils % 0.7 % NRBC % 0 % Test performed on Jun 19, 2020 08:40 CBC Slide Review Slide Review Perform SLIDE REVIEW AGREES WITH AUTOMATED RESULTS NEUTROPHIL RESEMBLE PEGLER HUET CELLS Test performed on May 27, 2020 14:45 SARS-CoV-2 RNA (COVID-19) NOT DETECTED A Not Detected (negative) test result for this test means that SARS- CoV-2 RNA was not present in the specimen above the limit of detection. A negative result does not rule out the possibility of COVID-19 and should not be used as the sole basis for treatment or patient management decisions. If COVID-19 is still suspected, based on exposure history together with other clinical findings, re-testing should be considered in consultation with public health authorities. Laboratory test results should always be considered in the context of clinical observations and epidemiological data in making a final diagnosis and patient management decisions. Please review the Fact Sheets and FDA authorized labeling available for health care providers and patients using the following websites: [email or web address]/fact-sheet2 [email or web address]/home/[email or web address]-19/Patients/NAAT/ fact-sheet2 This test has been authorized by the FDA under an Emergency Use Authorization (EUA) for use by authorized laboratories. Due to the current public health emergency, [facility] is receiving a high volume of samples from a wide variety of swabs and media for COVID-19 testing. In order to serve patients during this public health crisis, samples from appropriate clinical sources are being tested. Negative test results derived from specimens received in non-commercially manufactured viral collection and transport media, or in media and sample collection kits not yet authorized by FDA for COVID-19 testing should be cautiously evaluated and the patient potentially subjected to extra precautions such as additional clinical monitoring, including collection of an additional specimen. Methodology: Nucleic Acid Amplification Test (NAAT) includes RT-PCR or TMA Additional information about COVID-19 can be found at the [facility] website: [email or web address]. THIS TEST WAS PERFORMED AT: [facility] [place] [id number] [place] [id number] VISHNU RODRIGUEZ DO,MPH Test performed on May 27, 2020 14:36 Ua Color Yellow Ua Appearance Clear Ua Glucose Trace Ua Bilirubin Neg Ua Ketones Negative Ua Specific [place] 1.020 Ua Blood Neg Ua pH 5 Ua Protein Neg Ua Nitrites Negative Ua Leukocyte Esterase Negative Test performed on May 26, 2020 00:00 Manual Diff DUPLICATE TEST ST Test performed on Feb 25, 2020 12:10 CA 19-9 18.37 U/mL CEA 138.7 ng/mL PSA 0.673 ng/mL 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 CT scan of abdomen pelvis done in November 2019 showed no evidence of metastatic disease ENT, EGD evaluation showed no evidence of head and neck cancer, as per Patient, he had colonoscopy done last year it was unremarkable tumor marker CA 19???9 18.37 CEA [address] PET scan done on March 10, 2020 showed right upper lobe mass measuring 2.6 x 3.2 cm with SUV of 10.30, extensive mediastinal lymphadenopathy along with right hilar lymph node. No distant metastatic disease a single rib, right 10th rib laterally demonstrated on heparin fracture with callus formation .MRI scan of the head done on April 06, 2020 showed no evidence of metastatic disease, Clinical stage IIIa Started on combined chemoradiation with weekly carboplatin/Taxol on May 11, 2020 Completed on June 23, 2020 Diabetes and related complication ? diabetic neuropathyOr vascular as patient has been severe peripheral vascular disease involving bilateral feet Peripheral vascular disease,Status post bilateral femoral arterial stenting Done on April 15, 2020 CAD status post stent placement.Due to progressive coronary artery disease coronary artery stenting Done on April 15, 2020 Plan: Discussed with patient regarding his labs white blood count 8.5 hemoglobin 10.6 hematocrit 31.6 platelets 186,000 CMP within normal limit except sodium 132, CT PET scan done recently shows improvement in his right upper lobe mass and right hilar lymph node and no evidence of distant mets Clinically, patient is doing well with no new signs symptoms suggestive of disease progression his follow-up CT PET scan shows improvement in right upper lobe lung mass and right hilar lymph node no evidence of distant mets, could be treatment-related changes or residual disease, now being started on maintenance therapy with immunotherapy with durvalumab every 2 weeks x12 months. Off and on mild hemoptysis, could be from chronic bronchitis or chemo radiation-induced damage to the right bronchus, patient is being followed by pulmonology. Mild anemia could be multifactorial, hemoglobin is stable we will continue to monitor Return to clinic in 2 weeks with CBC CMP. Signed By: Nuno Campbell M.D. <<Signature on File>>
== END 2020-08-11 06:00 | disposition home or self-care (01) ==
LOC: ONCMED 05:18
PROVIDERS: Nurse Practitioner; Absent Provider Radiology Radiation Oncology; PCP Family Medicine; Visit Provider Internal Medicine Hematology & Oncology
DX: Z51.12 Encounter for antineoplastic immunotherapy (principal); C34.11 Malignant neoplasm of upper lobe, right bronchus or lung; C77.1 Secondary and unspecified malignant neoplasm of intrathoracic lymph nodes; I25.10 Atherosclerotic heart disease of native coronary artery without angina pectoris; E11.42 Type 2 diabetes mellitus with diabetic polyneuropathy; E11.51 Type 2 diabetes mellitus with diabetic peripheral angiopathy without gangrene; Z79.4 Long term (current) use of insulin; Z51.81 Encounter for therapeutic drug level monitoring; Z79.899 Other long term (current) drug therapy; Z92.3 Personal history of irradiation; Z95.5 Presence of coronary angioplasty implant and graft
CPT/HCPCS: 36591; 80053; 84443; 85025; 96413; 99024; 99214; 99215; J7050; J9173

== ENCOUNTER 2020-08-11 14:40 | Emergency (ER) | payer OTHER, MEDICARE, SELFPAY ==
[2020-08-11 15:29] VITALS: BP 90/58; PULSE 94; RESP 16; TEMP 36.7; O2SAT 97; BMI 26.4
--- NOTE | 2020-08-11 16:04 | USCV_ITS ---
Marbin Funez Age: 74 Gender: M : 1945 Exam Date: 08/11/2020 16:31 Ordering Phys: Bharath Rodarte DO Technologist: Corina Dean Exam Location: [facility] [facility] Indication: PAIN KNEE TO ANKLE ON RIGHT Risk Factors: DM Previous Vascular Surgery: GROIN STENTS PER PT RIGHT LEFT BP: 112.0 / 81.00 BP: 121.0/ 64.00 0 0 Waveform Velocity (cm/s) Velocity (cm/s) Waveform Biphasic 45.2 Iliac Prox Monophasic 65.5 Iliac Mid Monophasic 59.0 Iliac Distal Monophasic 57.4 ELECTROLYSIS NEEDLE OPERATOR Monophasic 54.6 SFA Prox Monophasic 61.8 SFA Mid Monophasic 44.4 SFA Dist Monophasic 36.6 POP Monophasic 17.1 DELI WORKER Monophasic 38.4 DPA 0.4 KATHERYN FINDINGS RT DPA 45 RT DELI WORKER 50 KATHERYN .41 Moderate diffuse plaques in the iliac artery on the right side. Heavy plaques at the distal superficial femoral artery Markedly diminished Doppler flow velocity in the artery distal to the plaque Low amplitude continuous monophasic waveforms in the popliteal and infrapopliteal vessels Seeing KATHERYN 0.4 on the right side. CONCLUSIONS 1. Features of high-grade stenosis in the distal superficial femoral artery on the right side 2. Abnormal Doppler waveforms suggestive of collateral filling of the popliteal and infrapopliteal vessels 3. Severely diminished resting KATHERYN 0.4 on the right side. No similar previous studies are available for comparison Dr Sharif Arias MD [facility] (Electronically Signed) Final Date: 11 August 2020 17:35 S
--- NOTE | 2020-08-11 16:05 | W.ED.EXTPRO ---
Documented by User: Bharath Rodarte DO 08/17/20 06:55 HPI - Extremity Problem General: Chief complaint: Extremity Problem,Nontraumatic Stated complaint: [facility] Time Seen by Provider: 08/11/20 15:53 History of Present Illness: HPI Narrative: 74-year-old male with a history of coronary disease and history of peripheral artery disease. And February 2020 he had coronary artery stent placement, in March 2020 he had stenting of his iliac artery. He states he is now having pain in his right leg is worse with exertion. It resolves with rest. This is been ongoing for some weeks now he went to see the clinic at the [facility] and they referred him here. He denies any chest pain or palpitations he does have some back pain but this is chronic. MD Complaint: extremity pain Onset (ago): week(s) Pain Consistency: intermittent Location: right Quality: aching Radiation: distal Relieving factors: rest Exacerbating factors: walking Associated symptoms: Deny arthralgias, chest pain, fever(s), myalgias, rash or short of breath Review of Systems Const: Denies: fever(s) ENMT: Denies: throat pain, ear or mastoid pain, nasal discharge or nasal congestion Card: Denies: chest pain Resp: Denies: dyspnea, productive cough or non-productive cough GI: Denies: abdominal pain, nausea, vomiting, hematemesis, coffee ground emesis, diarrhea, constipation, bloating, hematochezia or melena : Denies: flank pain, dysuria, urinary frequency or urinary urgency Skin/Breast: Denies: rash PFSH ED PFSH: Medical History Bladder cancer Lung nodule PVD (peripheral vascular disease) Type 2 diabetes mellitus with diabetic polyneuropathy Surgical History H/O colonoscopy H/O esophagogastroduodenoscopy (04/01/20) H/O heart artery stent History of bladder surgery History of bronchoscopy History of surgical removal of pilonidal cyst Port-A-Cath in place (04/01/20) Family History Other CAD (coronary artery disease) Cancer Diabetes Hyperlipidemia Hypertension Lung disease Denies family history of Clotting disorder Dementia Psychiatric illness Chronic kidney disease (CKD) Suicide Anesthesia complication Bleeding disorder Family history of premature coronary artery disease Stroke Social History Smoking and tobacco status: former smoker Quit status (tobacco): has quit using tobacco Year quit tobacco: 06-17 PPD x 45 Years Alcohol intake: never Lives independently: Yes Household members: spouse Marital status: service: Yes Current occupational status: retired History of recent travel: No Current gender identity: Male Physical Exam Const: COMMON NORMALS: no acute distress GENERAL APPEARANCE: cooperative and comfortable ORIENTATION/CONSCIOUSNESS: Yes awake, Yes oriented to person, Yes oriented to place and Yes oriented to time HENMT: COMMON NORMALS: normocephalic, atraumatic and hearing grossly normal bilaterally HEAD & SCALP: normocephalic and atraumatic Neck/C-Spine: COMMON NORMALS: no JVD Resp: COMMON NORMALS: normal respiratory effort, No retractions, No use of accessory muscles and clear to auscultation bilaterally AUSCULTATION: clear to auscultation bilaterally Cardio: COMMON NORMALS: no JVD, regular rate, regular rhythm and No murmurs present (Cardio) RATE: regular rate RHYTHM: regular rhythm GI: COMMON NORMALS: Soft to palpation and No hepatosplenomegaly present AUSCULTATION: Yes normoactive bowel sounds PALPATION: Yes Soft to palpation, No Tenderness to palpation present (GI), No Guarding due to palpation present (GI) and Yes No hepatosplenomegaly present Extremity: NARRATIVE EXTREMITY EXAM: Cool to the touch difficult to palpate pulses the right dorsalis pedis or posterior tibialis moderate capillary refill Neuro: SENSORIUM/ORIENTATION: Yes oriented to person, Yes oriented to place and Yes oriented to time Skin: COMMON NORMALS: no rashes or lesions noted GENERAL SKIN EXAM: no rashes or lesions noted Course Vital Signs: Vital signs: Vital Signs Temperature 98.1 F 08/11/20 15:29 Pulse Rate 92 08/11/20 18:23 Respiratory Rate 18 08/11/20 18:23 Blood Pressure 115/59 08/11/20 18:23 Pulse Oximetry 95 08/11/20 18:23 MDM - Extremity (Nontraumatic) MDM Narrative: Medical decision making narrative: Care turned over to Dr. Rudd at change of shift arterial duplex pending Discharge Plan Discharge Patient Disposition: Home Clinical Impression: Peripheral vascular disease Condition: Stable Prescriptions: New hydrocodone-acetaminophen 5-325 mg tablet 1 tab PO Q6H PRN (Reason: pain) Qty: 14 RF: 0 No Action cholecalciferol (vitamin D3) 25 mcg (1,000 unit) capsule 25 mcg PO DAILY@0800 RF: 0 acarbose 100 mg tablet 100 mg PO TID@0800,1200,2000 RF: 0 metformin 850 mg tablet 850 mg PO TID RF: 0 lisinopril 40 mg tablet 20 mg PO DAILY RF: 0 aspirin 81 mg tablet,delayed release (DR/EC) 81 mg PO DAILY@0800 RF: 0 atorvastatin 80 mg tablet 40 mg PO DAILY RF: 0 cilostazol 50 mg tablet 25 mg PO BID RF: 0 Centrum Silver 0.4-300-250 mg-mcg-mcg tablet 1 tab PO DAILY@0800 RF: 0 insulin aspart U-100 [Novolog Flexpen U-100 Insulin] 100 unit/mL (3 mL) insulin pen 12 unit SUBCUT TID RF: 0 insulin glargine 100 unit/mL (3 mL) insulin pen 40 unit SUBCUT DAILY RF: 0 (DME) Sole supports Qty: 1 RF: 0 (DME) Custom orthotics See Rx Instructions .Route .MEDSUPPLY Qty: 1 RF: 0 cetirizine 10 mg Tablet 10 mg PO DAILY@0800 RF: 0 isosorbide mononitrate 30 mg Tablet Extended Release 24 Hr 30 mg PO DAILY@0800 RF: 0 clopidogrel 75 mg Tablet 75 mg PO DAILY@0800 RF: 0 polyethylene glycol 3350 17 gram/dose Powder 17 g PO DAILY RF: 0 fluticasone propionate 50 mcg/actuation [place],Suspension 1 spray INTRANASAL DAILY@0800 RF: 0 olodaterol 2.5 mcg/actuation Mist 2 inh INHALATION DAILY@0800 RF: 0 Discharge Orders: Discharge ED (Routine); Ordered 08/11/20 Ordered By: Alessia Rudd Referrals: Shavonne Biswas MD [Primary Care Provider] - Cornell Hoover M.D [Physician] - 1-3 days Discharge Diet: Advance as tolerated Discharge Activity: Resume usual activity Patient Instructions: Opioid Safety, Peripheral Vascular Disease Coding Level of Care Code ED Harness Mender for Chg Fwd Documented by User: Alessia Rudd MD 08/11/20 18:21 HPI - Extremity Problem General: Chief complaint: Extremity Problem,Nontraumatic Stated complaint: [facility]IN[facility] Time Seen by Provider: 08/11/20 15:53 PFSH ED PFSH: Medical History Bladder cancer Lung nodule PVD (peripheral vascular disease) Type 2 diabetes mellitus with diabetic polyneuropathy Surgical History H/O colonoscopy H/O esophagogastroduodenoscopy (04/01/20) H/O heart artery stent History of bladder surgery History of bronchoscopy History of surgical removal of pilonidal cyst Port-A-Cath in place (04/01/20) Family History Other CAD (coronary artery disease) Cancer Diabetes Hyperlipidemia Hypertension Lung disease Denies family history of Clotting disorder Dementia Psychiatric illness Chronic kidney disease (CKD) Suicide Anesthesia complication Bleeding disorder Family history of premature coronary artery disease Stroke Social History Smoking and tobacco status: former smoker Quit status (tobacco): has quit using tobacco Year quit tobacco: 2007- PPD x 45 Years Alcohol intake: never Lives independently: Yes Household members: spouse Marital status: service: Yes Current occupational status: retired History of recent travel: No Current gender identity: Male Course Vital Signs: Vital signs: Vital Signs Temperature 98.1 F 08/11/20 15:29 Pulse Rate 92 08/11/20 18:23 Respiratory Rate 18 08/11/20 18:23 Blood Pressure 115/59 08/11/20 18:23 Pulse Oximetry 95 08/11/20 18:23 MDM - Extremity (Nontraumatic) MDM Narrative: Medical decision making narrative: Patient presents here with peripheral vascular disease with symptoms of claudication. He denies any pain at rest. I did Doppler his dorsal pedis and posterior tib pulses in the room before discharge and they are strong. His foot is warm. Ultrasound did show stenosis that is SFA with an KATHERYN 0.4. I spoke to Dr. Lyman patient does not need to be admitted for acute leg ischemia. He is to continue to take his Plavix and aspirin. We will set up an appointment within 3 to [address] Lyman. I informed if he has any worsening pain or his foot gets cold he is to return immediately. He understands agrees to plan. Discharge Plan Discharge Patient Disposition: Home Clinical Impression: Peripheral vascular disease Condition: Stable Prescriptions: New hydrocodone-acetaminophen 5-325 mg tablet 1 tab PO Q6H PRN (Reason: pain) Qty: 14 RF: 0 No Action cholecalciferol (vitamin D3) 25 mcg (1,000 unit) capsule 25 mcg PO DAILY@0800 RF: 0 acarbose 100 mg tablet 100 mg PO TID@0800,1200,2000 RF: 0 metformin 850 mg tablet 850 mg PO TID RF: 0 lisinopril 40 mg tablet 20 mg PO DAILY RF: 0 aspirin 81 mg tablet,delayed release (DR/EC) 81 mg PO DAILY@0800 RF: 0 atorvastatin 80 mg tablet 40 mg PO DAILY RF: 0 cilostazol 50 mg tablet 25 mg PO BID RF: 0 Centrum Silver 0.4-300-250 mg-mcg-mcg tablet 1 tab PO DAILY@0800 RF: 0 insulin aspart U-100 [Novolog Flexpen U-100 Insulin] 100 unit/mL (3 mL) insulin pen 12 unit SUBCUT TID RF: 0 insulin glargine 100 unit/mL (3 mL) insulin pen 40 unit SUBCUT DAILY RF: 0 (DME) Sole supports Qty: 1 RF: 0 (DME) Custom orthotics See Rx Instructions .Route .MEDSUPPLY Qty: 1 RF: 0 cetirizine 10 mg Tablet 10 mg PO DAILY@0800 RF: 0 isosorbide mononitrate 30 mg Tablet Extended Release 24 Hr 30 mg PO DAILY@0800 RF: 0 clopidogrel 75 mg Tablet 75 mg PO DAILY@0800 RF: 0 polyethylene glycol 3350 17 gram/dose Powder 17 g PO DAILY RF: 0 fluticasone propionate 50 mcg/actuation [place],Suspension 1 spray INTRANASAL DAILY@0800 RF: 0 olodaterol 2.5 mcg/actuation Mist 2 inh INHALATION DAILY@0800 RF: 0 Discharge Orders: Discharge ED (Routine); Ordered 08/11/20 Ordered By: Alessia Rudd Referrals: Shavonne Biswas MD [Primary Care Provider] - Cornell Hoover M.D [Physician] - 1-3 days Discharge Diet: Advance as tolerated Discharge Activity: Resume usual activity Patient Instructions: Opioid Safety, Peripheral Vascular Disease Coding Level of Care Code ED Harness Mender for Carmen Rosas
[2020-08-11 16:08] VITALS: PULSE 95
[2020-08-11 16:13] VITALS: BP 92/58; PULSE 96; RESP 16; O2SAT 97
[2020-08-11 16:47] VITALS: BP 109/61; PULSE 92; RESP 18; O2SAT 97
[2020-08-11 17:38] VITALS: BP 92/59; PULSE 91; RESP 16; O2SAT 95
[2020-08-11 18:23] VITALS: BP 115/59; PULSE 92; RESP 18; O2SAT 95
--- NOTE | 2020-08-12 11:48 | DCPLANNER ---
manager managed care had message to schedule a follow up appointment for patient with heart care. manager managed care called heart care, spoke with Yulia, a follow up appointment was scheduled for Monday, August 17, 2020 at 1:[address] Dailey. manager managed care emailed patients information to [facility] with [facility] over a secured email, along with the appointment information. manager managed care called patient, spoke with his and gave her the appointment information. Patients stated that patient would attend appointment.
--- NOTE | 2020-08-21 14:00 | DCPLANNER ---
Patient had a follow up appointment scheduled for 08.17.[address] Dailey, at [facility] - patient did attend appointment.
== END 2020-08-11 18:24 | disposition home or self-care (01) ==
PROVIDERS: Emergency Provider Emergency Medicine; PCP Family Medicine
DX: I73.9 Peripheral vascular disease, unspecified (principal); Z79.02 Long term (current) use of antithrombotics/antiplatelets; Z79.82 Long term (current) use of aspirin; Z79.4 Long term (current) use of insulin; Z85.51 Personal history of malignant neoplasm of bladder; E11.42 Type 2 diabetes mellitus with diabetic polyneuropathy; Z87.891 Personal history of nicotine dependence
CPT/HCPCS: 93926; 99283

== ENCOUNTER 2020-08-12 06:05 | Outpatient (RCR) | payer OTHER, MEDICARE, SELFPAY ==
[2020-08-12 09:17] LABS: Basophils # 0.1 10^3/uL (0.0-0.1); Basophils % 0.7 %; Eosinophils # 0.5 10^3/uL (0.0-0.8); Eosinophils % 7.2 %; Hematocrit 31.4 % (42.0-52.0); Hemoglobin 10.3 g/dL (11.7-16.6); Lymphocytes # 1.5 10^3/uL (0.8-4.8); Lymphocytes % 19.6 %; Mean Corpuscular HGB Conc 32.8 g/dL (30.0-36.0); Mean Corpuscular Hemoglobin 31.5 pg (28.0-34.0); Monocytes # 0.8 10^3/uL (0.2-0.9); Monocytes % 10.5 %; Neutrophils # 4.61 10^3/uL (1.8-7.7); Neutrophils % 61.6 %; Nucleated Red Blood Cells % 0 %; Platelet Count 236 10^3/cmm (130-400); Red Blood Count 3.27 10^6/uL (4.1-5.3); Red Cell Distribution Width 15.7 % (12.1-15.1); White Blood Count 7.5 10^3/uL (4.0-10.0)
[2020-08-12 09:38] LABS: Alanine Aminotransferase 17 U/L (0-41); Albumin Level 3.7 g/dL (3.5-5.2); Alkaline Phosphatase 62 IU/L (40-130); Aspartate Amino Transferase 16 U/L (0-40); Blood Urea Nitrogen 10 mg/dL (8-23); Calcium 9.2 mg/dL (8.5-10.5); Carbon Dioxide 29 mmol/L (22-29); Chloride 94 mmol/L (98-107); Globulin 2.6 g/dL (1.3-4.6); Glucose 199 mg/dL (65-115); Osmolality Calculated 277 mOsm/kg (285-295); Sodium 131 mmol/L (136-145); Total Bilirubin 0.3 mg/dL (0.15-1.2); Total Protein 6.3 g/dL (6.6-8.7)
--- NOTE | 2020-08-24 22:40 | ONC FU_ITS ---
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 Funez is a 74-year-old gentleman with a history of COPD. He went to [facility] on November 26, 2019 with 3-day history of right flank pain. He reported his pain was radiating to with right pelvis. A CT scan of abdomen pelvis was done on November 26, 2019 which showed no urinary tract calculus or obstruction normal appendix; calcified right lower lobe pulmonary granuloma. On January 09, 2020, he had a chest x-ray done for chest pain and found to have right upper lung mass. He subsequently underwent CT scan of chest which confirmed right upper lobe lung mass measuring 2.7 x 3.1 cm. The lesion was subpleural and also showed mediastinal and hilar lymphadenopathy. He underwent transthoracic needle biopsy on February 06, 2020. He also underwent bronchoscopy and transbronchial needle aspiration of station 4R and 10 R lymph node. 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 Immunohistochemistry were negative for TTF-1, Napsin and p63 and CK 20 so based on this immunoprofile tumor was not overtly designated as a lung primary. Mr Funez has history of coronary artery disease status post stent placement and also has peripheral vascular disease. Patient denies any hemoptysis or hematemesis, denies any weight loss, denies any poor appetite,. Denies any headaches blurred vision or double vision. As per patient he has history of bladder cancer, diagnosed in 2006 or 8 at that time tumor was removed and he was given intravesical therapy. And followed by yearly exam until recently with no evidence of recurrence of disease. He also has history of neuropathy involving both feet probably due to peripheral vascular disease. He was evaluated by a vascular surgeon for intervention stenting or arterial bypass , As per patient bilateral femoral artery stenting was done on April 15, 2020 And on same day he underwent coronary artery stenting done, tolerated procedure very well and he was started on Plavix and aspirin. PET/CT scan from March 10, 2020 showed marked increase of metabolic activity in the anterior right upper lung lobe size about 2.6 x 3.2 cm consistent with neoplasia and there is extensive mediastinal lymph node involvement of anterior/prevascular lymph nodes, right paratracheal, precarinal with an index lesion measuring 1.4 x 2.0 cm with SUV of 6.75 and right hilar lymph node. No evidence of distant metastatic disease MRI scan of the brain done on April 06, 2020 showed no evidence of metastatic disease Tumor marker CA 19???9 was 18.37, PSA 0.673, and CEA 138.7., Patient had ENT evaluation done which shows no evidence of head or neck cancer EGD Was done on April 01, 2020, it was normal exam, As per patient he had colonoscopy done last year and it was unremarkable Mr Funez was offered treatment with concurrent chemoradiation and started with weekly carboplatin/Taxol on May 11, 2020. He has tolerated it well but has required growth factor support for neutropenia. He completed combined chemoradiation therapy on June 23, 2020 Follow-up CT PET scan done on July 25, 2020 showed right upper lobe mass measured 2.3 x 1.8 cm, with SUV of 3.2 compared to 2.6 x 3.[address] PET scan done on March 10, 2020 and the right upper lobe hilar lymph node with SUV of 4.5. Other scattered mediastinal lymph nodes are subcentimeter in size and FDG negative no evidence of distant mets Mr Funez tarted on maintenance durvalumab every 2 weeks for 12 months on July 28, 2020. He had follow-up arterial duplex of the right lower extremity on August 12, 2019 through the ER. He presented with pain from his knee to his ankle on the right leg. He has a history of stents in his groin in November 2019 per his report. The arterial Doppler did report features of high-grade stenosis in the distal superficial femoral artery on the right side. There are abnormal Doppler waveforms suggestive of collateral filling of the popliteal and infrapopliteal vessels. Severely diminished resting KATHERYN 0.4 on the right side. There were no similar previous studies available for comparison. Mr. Funez does have follow-up with cardiology regarding these findings. Mr. Funez is here today for follow-up. He has no new concerns. He does complain of right lower extremity pain as a result of the above report. He denies any fever or chills. He denies any shortness of breath or orthopnea. He denies chest pain or palpitations. He denies any worsening shortness of breath. He has had no hemoptysis, hematuria. He denies any diarrhea or abdominal pain. Overall he states if it was not for his like he would feel pretty good. He denies any temperature changes such as coldness or blueness of the right lower extremity. His ECOG is 1. Past Medical History: Peripheral neuropathy Peripheral vascular disease Type II diabetes History of bladder cancer in 2006 Past Surgical History: EGD PORTHACATHER PLACEMENT DR. PARK Stent placment Colonoscopy in 2018 Allergies: No Known Allergies. Medications: Acarbose 1 Tablet (of 100 mg) Oral t.i.d. Aspirin 1 Tablet (of 81 mg) Tablet, enteric coated Oral daily Atorvastatin Calcium 1 Tablet (of 80 mg) Oral daily Cetirizine HCl 1 Tablet (of 10 mg) Oral daily Cholecalciferol 1 Capsule (of 25 mcg ) Oral daily Cilostazol 1 Tablet (of 50 mg) Oral b.i.d. Clopidogrel Bisulfate 1 Tablet (of 75 mg) Oral daily Flonase Suspension Nasal Furosemide 1 Tablet (of 20 mg) Oral daily Insulin Aspart Subcutaneous Insulin Glargine 10 Units (of 100 Units/mL) Subcutaneous daily Isosorbide Mononitrate ER 1 Tablet (of 30 mg) Tablet SR 24 HR Oral daily Lisinopril 1 Tablet (of 40 mg) Oral daily metFORMIN HCl 1 Tablet (of 850 mg) Oral t.i.d. Multivitamin 1 Tablet Oral daily Naproxen 1 Tablet (of 250 mg) Oral q 8 hours PRN Family History: Mr. Funez's mother is alive. Mr. Funez's father at age 69: lung cancer. Mr. Funez has 1 brother who is : stroke. He has 1 sister who is : stroke. Social History: Mr. Funez is and he is an unknown. Mr. Funez quit smoking 14 years ago but had smoked 2.5 packs/day for 50 years. He has no history of drinking. Review Of Symptoms: Vital Signs: Performed on Aug 12, 2020 09:33 Height - 70.00 in Weight - 188.2 lbs (LOW) BSA - 2.03 sq.m BMI - 27.00 Temperature - 97.4 F (LOW) Pulse - 90 /min Respiration - 17 /min BP - 113/68 mm(hg) O2 Sat - 97 % Pain - 2,1 - No physically strenuous activity, but ambulatory and able to carry out light or sedentary work (e.g. office work, light house work). (ECOG) Physical Examination: Constitutional Alert, oriented, no acute distress. Skin pink, warm and dry. Head Normocephalic; atraumatic. Eyes Conjunctivae and sclerae are clear and without icterus. Pupils are reactive and equal. ENMT No oral exudates, ulcers, masses, thrush or mucositis. Oropharynx clear. Tongue normal. Neck Supple without masses or thyromegaly. No jugular venous distension. Hematologic/Lymphatic No petechiae or purpura. No tender or palpable lymph nodes in the cervical or supraclavicular areas. Respiratory Lungs are diminished to auscultation without rhonchi or wheezing. Cardiovascular Regular rate and rhythm of heart without murmurs,clicks, gallops or rubs. Abdomen Non-tender, non-distended, no masses or ascites. Good bowel sounds noted in all quads. No guarding or rebound tenderness. No pulsatile masses. Back/Spine Non-tender to palpation. Extremities No visible deformities, no cyanosis, clubbing or edema. NO coldness or pain on palpation of right LE. Musculoskeletal No tenderness or swelling, normal range of motion without obvious weakness. Integumentary No rashes or lesions. Neurologic No sensory or motor deficits, normal cerebellar function, slow gait. Psychiatric Alert and oriented times three. Coherent speech. Verbalizes understanding of our discussions today. Laboratory:Test performed on Aug 12, 2020 08:36 Sodium 131 mmol/L Potassium 4.0 mmol/L Chloride 94 mmol/L CO2 29 mmol/L Anion Gap 12.0 BUN 10 mg/dL Creatinine 0.5 mg/dL Cr Clearance (Est) 150.0400 mL/min Glucose 199 mg/dL Osmolality - Calculated 277 mOsm/kg Calcium 9.2 mg/dL Protein, Total 6.3 g/dL Albumin 3.7 g/dL Globulin 2.6 g/dL Bilirubin, Total 0.3 mg/dL ALT (SGPT) 17 U/L AST (SGOT) 16 U/L Alkaline Phosphatase 62 IU/L WBC 7.5 10 3/uL RBC 3.27 10 6/uL HGB 10.3 g/dL HCT 31.4 % MCV 96.0 fL MCH 31.5 pg MCHC 32.8 g/dL RDW 15.7 % Platelet Count 236 10 3/cmm MPV 9.0 fL Neutrophils 4.61 10 3/uL Lymphocytes 1.5 10 3/uL Monocytes 0.8 10 3/uL Eosinophils 0.5 10 3/uL Basophils 0.1 10 3/uL Neutrophil % 61.6 % Lymphocyte % 19.6 % Monocyte % 10.5 % Eosinophil % 7.2 % Basophils % 0.7 % NRBC % 0 % Test performed on Jun 19, 2020 08:40 CBC Slide Review Slide Review Perform SLIDE REVIEW AGREES WITH AUTOMATED RESULTS NEUTROPHIL RESEMBLE PEGLER HUET CELLS Test performed on May 27, 2020 14:45 SARS-CoV-2 RNA (COVID-19) NOT DETECTED A Not Detected (negative) test result for this test means that SARS- CoV-2 RNA was not present in the specimen above the limit of detection. A negative result does not rule out the possibility of COVID-19 and should not be used as the sole basis for treatment or patient management decisions. If COVID-19 is still suspected, based on exposure history together with other clinical findings, re-testing should be considered in consultation with public health authorities. Laboratory test results should always be considered in the context of clinical observations and epidemiological data in making a final diagnosis and patient management decisions. Please review the Fact Sheets and FDA authorized labeling available for health care providers and patients using the following websites: [email or web address]-[email or web address]/ fact-sheet2 This test has been authorized by the FDA under an Emergency Use Authorization (EUA) for use by authorized laboratories. Due to the current public health emergency, [employer] is receiving a high volume of samples from a wide variety of swabs and media for COVID-19 testing. In order to serve patients during this public health crisis, samples from appropriate clinical sources are being tested. Negative test results derived from specimens received in non-commercially manufactured viral collection and transport media, or in media and sample collection kits not yet authorized by FDA for COVID-19 testing should be cautiously evaluated and the patient potentially subjected to extra precautions such as additional clinical monitoring, including collection of an additional specimen. Methodology: Nucleic Acid Amplification Test (NAAT) includes RT-PCR or TMA Additional information about COVID-19 can be found at the [employer] website: [email or web address]. THIS TEST WAS PERFORMED AT: [facility] [id number] VISHNU RODRIGUEZ DO,MPH Test performed on May 27, 2020 14:36 Ua Color Yellow Ua Appearance Clear Ua Glucose Trace Ua Bilirubin Neg Ua Ketones Negative Ua Specific [place] 1.020 Ua Blood Neg Ua pH 5 Ua Protein Neg Ua Nitrites Negative Ua Leukocyte Esterase Negative Test performed on May 26, 2020 00:00 Manual Diff DUPLICATE TEST ST Test performed on Feb 25, 2020 12:10 CA 19-9 18.37 U/mL CEA 138.7 ng/mL PSA 0.673 ng/mL 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 CT scan of abdomen pelvis done in November 2019 showed no evidence of metastatic disease ENT, EGD evaluation showed no evidence of head and neck cancer, as per Patient, he had colonoscopy done last year it was unremarkable tumor marker CA 19???9 18.37 CEA [address] PET scan done on March 10, 2020 showed right upper lobe mass measuring 2.6 x 3.2 cm with SUV of 10.30, extensive mediastinal lymphadenopathy along with right hilar lymph node. No distant metastatic disease a single rib, right 10th rib laterally demonstrated on heparin fracture with callus formation .MRI scan of the head done on April 06, 2020 showed no evidence of metastatic disease, Clinical stage IIIa Started on combined chemoradiation with weekly carboplatin/Taxol on May 11, 2020 Completed on June 23, 2020 Diabetes and related complication ? diabetic neuropathyOr vascular as patient has been severe peripheral vascular disease involving bilateral feet Peripheral vascular disease,Status post bilateral femoral arterial stenting Done on April 15, 2020 CAD status post stent placement.Due to progressive coronary artery disease coronary artery stenting Done on April 15, 2020 Plan: PROBLEMS ADDRESSED TODAY 1. Right lung cancer-poorly differentiated adenosquamous. He completed combined chemoradiation with Carboplatin/paclitaxel on 06/23/2020. A. Persistent hemoptysis. He did have follow-up PET CT on 07/25/2020 which reported the right upper lobe mass measuring 2.3 x 1.8 cm with an SUV of 3.2 indicating viable residual disease. A right upper lobe hilar node has an SUV of 4.5, consistent with local metastatic disease. Other scattered mediastinal nodes are subcentimeter in size and FDG negative. The PET reports it was negative for disease outside of the chest. B. The hemoptysis improved and after he was able to resume his immunotherapy with Imfinzi on July 28, 2020. C. Labs from today were reviewed in detail and discussed with Mr Funez and a copy was given to him. WBC 7.5, Hgb 10.3, platelets 236,000, ANC 4610. Creatinine 0.5 random glucose 199 calcium 9.2 ALT 17 AST is 16 alk phos is 62. D. Dr Campbell discussed with Mr Funez the role of maintenance therapy with durvalumab every 2 weeks for 12 months. He had been persistent hemoptysis. His last PET/CT imaging was on 07/25/2020. D. His durvalumab will be placed on hold until he has cardiology follow-up due to the abnormal arterial Doppler of the right lower extremity. Reported that he had features of high-grade stenosis in the distal superficial femoral artery on the right side as well as abnormal Doppler whaling status of collateral filling in the popliteal and infrapopliteal vessels. Severely diminished resting ABIs 0.4 on the right no similar previous studies were available for comparison. E. Plan to return with followup visit and CBC, CMP and TSH after cardiology follow-up, hopefully within the next two or three weeks. F. Mr Funez was encouraged to call us in the interim if questions or problems arise. Signed By: Felipa Lucio-SHANTELLE, TANJA Campbell MD <<Signature on File>>
== END 2020-08-12 23:59 | disposition home or self-care (01) ==
LOC: ONCMED 06:05
PROVIDERS: Absent Provider Radiology Radiation Oncology; PCP Family Medicine; Visit Provider Nurse Practitioner
DX: C34.11 Malignant neoplasm of upper lobe, right bronchus or lung (principal); C77.1 Secondary and unspecified malignant neoplasm of intrathoracic lymph nodes; E11.51 Type 2 diabetes mellitus with diabetic peripheral angiopathy without gangrene; I25.10 Atherosclerotic heart disease of native coronary artery without angina pectoris; Z79.4 Long term (current) use of insulin; Z92.21 Personal history of antineoplastic chemotherapy; Z92.3 Personal history of irradiation; Z95.5 Presence of coronary angioplasty implant and graft; R04.2 Hemoptysis
CPT/HCPCS: 36591; 80053; 85025; 99214

== ENCOUNTER → 2020-09-04 10:30 | Outpatient (BNVA) | payer OTHER, MEDICARE, SELFPAY | PROVIDERS: PCP Family Medicine; Visit Provider Internal Medicine | DX: Z01.812 Encounter for preprocedural laboratory examination (principal); Z20.822 Contact with and (suspected) exposure to COVID-19 | CPT/HCPCS: 87635 ==

== ENCOUNTER 2020-09-09 07:49 | Observation (INO) | payer OTHER, MEDICARE, SELFPAY ==
[2020-09-09] VITALS (54 sets, daily range): BP systolic 113–157; BP diastolic 63–86; PULSE 78–94; RESP 16–22; TEMP 36.4–36.9; O2SAT 90–97; BMI 27.2
--- NOTE | 2020-09-09 07:30 | XACV_ITS ---
Ht: 178 cm Wt: 86 kg BSA: 2.08 m2 Any Known Allergies: No known allergies Gender: Male : 1945 Exam Type: Invasive Peripheral Vascular Procedure(s): Procedure Description: Peripheral Cath Diagnostic Procedure Procedure Description: Lower extremities' angiography Exam Priority: Routine Lower Extremity Diagnostic Findings INDICATION: Severe life style limiting claudication. Patient has started noticing rest pain occasionally. Concern for critical limb ischemia. Distal Aorta: Patent. Right common iliac artery: Patent, has a patent stent Right external iliac artery: Patent Right common femoral artery: Patent(ostial stent that is patent) Right SFA: SFA has severe, heavily calcified serial lesions from mid to distal vessel. Popliteal artery has calcified disease. Below the knee runoff is very poor with only peroneal artery appears to be patent. Collateral supply is noted. Left lower extremity angiogram: Left common iliac artery: Patent Left external iliac artery: Has moderate stenosis Left common femoral artery: Patent Left SFA: Patent with diffuse mild to moderate plaque Left popliteal artery: Patent Below the knee patient has significant disease with collateral flow. Popliteal artery appears to be patent. Posterior tibial artery territory is supplied by collaterals . Lower Extremity Interventional Findings After performing peripheral angiogram, we attempted to cross the right SFA lesions with Glidewire initially that was switched to run-through wire. This was with seeker support. However wire could not cross the severe heavily calcified stenotic L SFA. Dissection of the distal SFA was noted. At this time we aborted further attempts at revascularization with plans to staged revascularization from popliteal access. Patient's PT had weak doppler signal but that was unchanged from before. . Conclusions Severe peripheral artery disease. Severe, heavily calcified Right SFA disease. Poor single vessel runoff below the knee with collaterals flow. Patent right common iliac stent. Severe below the knee peripheral artery disease on the left side. Recommendations Admit for observation. Patient had dissection of distal SFA, we will watch patient overnight. Symptom free at this time with warm foot and weakly dopplerable pulse. Will plan on staged revascularization of the right lower extremity from popliteal access in 2 weeks. Will initiate Eliquis 2.5 mg BID. Access Site Site: Left Femoral artery Sheath Size: 6 Fr Hemost... Method: Suture Hemost... Success: Successful Procedure Details Findings Procedure Consent Obtained. Pre-Procedure Time Out. Identified patient by full name and date of as verbalized by the patient/guarantor. Does the consent match the physician's order: Yes. Accurate & Complete Informed Consent: Yes. Inpatient/Outpatient History & Physical on Chart: Yes. If H&P is completed, is and addenduem needed: No; If yes, is the addendum complete: N/A. Visualize and Verify Site with Patient/Guarantor: N/A. Relevant Radiology Images available: N/A. Pre-op teaching completed and patient verbalized understanding. The risks, benefits, and alternatives of sedation and/or procedure were discussed by physician. The patient agrees to continue. Procedure started. Correct patient, site and procedure confirmed by cath team. PERRLA. 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 Lungs clear x 5 lobes. Pt has wale cath in left upper chest for IV access. IV Fluids: 0.9% NaCl at KVO. 0 mL infused prior to sawyer cork slabs. Pre Procedural Pulses: bilateral dorsalis pedis was Doppled. Physician notified. Oxygen started at 2liters/min via nasal canula. bilateral groins was prepped with chloroprep then draped in the usual sterile fashion. Baseline sample Acquired. HR: 88 BPM. Equipment: Peripheral. Cardiac Cath Pack. ACIST Manifold Kit Model BT 2000. Heparinized Saline (2 units/mL), 1000 mL bag. Inventory is JJ 6F 11cm Judy Plus Sheath. Physician arrived. Physician scrubbed in. Time out performed with cath team. Lidocaine 1% infiltrated to the left groin. Arterial access obtained with micropuncture set. A CORDIS 5F UF catheter 65cm was advanced over the wire and used for Abdominal aortogram with runoff. Abdominal aortogram performed in AP @ 10 mL/sec for a total of 30 mL. Inventory is CK 6 FR FLEXOR SHEATH 45CM. Glidewire inserted. Catheter removed over the glide wire. A JJ 5F RIM 65 cm Diagnostic Catheter was advanced over the wire. Glidewire out. Hand injection performed. Glidewire inserted. Catheter removed over the glide wire. A 5 turkish IM catheter in over wire and used to advance glidewire into Right SFA. Catheter removed over the glide wire. Short 6 fr sheath exchanged for long 45 cm 6 fr Flexor sheath. Right leg runoff with DSA 10 ml for total of 30ml. SEEKER support catheter inserted over glidewire. Wire out. Hand injection performed. Glidewire inserted. Long 300 cm runthrough wire inserted. Wire out. Hand injection. Glidewire inserted. Inventory is TR Glidewire Angled Stiff Shaft .[address]cm[address] Ordonez scrubbed in to assist Dr Hoover. Glidewire out. Runthrough wire inserted. Wire out. Glidewire inserted. SEEKER and wire advanced to distal Right SFA. Wire out. Hand injection performed. Hand injection performed. Glidewire inserted. Wire out. Seeker pulled back to Mid SFA. Right leg runoff 10 for 20 ml. Seeker catheter out. Right leg runoff through sheath 10 ml for total of 30 ml. Long 45 cm 6 fr flexor sheath exchanged for short [address] Ordonez scrubbed out. Left leg runoff 10 ml for total of 30 ml through the sheath. Dr Hoover scrubbed out. A Suture was successful obtaining hemostatsis at the Left Femoral artery insertion site. Sheath(s) sutured into position with 2-0 silk and sterile 4x4's and Op-site applied over the site. No oozing or signs and symptoms of hematoma noted. Arterial sheath flushed and connected to tranducer and pressure bag with heparinized saline. PERRLA. 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 No VTE prophylaxis required. Medication's Wasted: Verapamil = 1.5 mg. Medication's Wasted: Nitro = 50 mg. Medication's Wasted: Heparin = 4000 units. Total IV fluids: 122 mL. Post-op diagnosis: severe PAD. Complications: none. Estimated blood loss: 5mL-10mL. Post Procedure: right posterior tibial pulse Doppled. Post Procedure: right dorsalis pedis pulse Absent. Contrast type used: Visipaque 320 mgI/mL, 500 mL bottle. Procedure completed. Patient transferred by bed to ICU. Vital chart was stopped. Procedure Medications Start: 8:47 AM Stop: 8:47 AM Medication: Versed Amount: 1 mg Route: I.V. Start: 8:47 AM Stop: 8:47 AM Medication: Fentanyl Amount: 50 mcg Route: I.V. Start: 9:46 AM Stop: 9:46 AM Medication: Versed Amount: 1 mg Route: I.V. Start: 9:46 AM Stop: 9:46 AM Medication: Fentanyl Amount: 50 mcg Route: I.V. I, the attending physician, have reviewed and verified all procedure medications. Yes, all medications given per verbal order History/Risk Factors Hypertension: No Dyslipidemia: No Peripheral Arterial Disease (PAD): Yes Obesity: No Renal Disease: No Prior Interventions PCI: Yes CABG: No Valve Surgery: No Report Signatures Finalized by Cornell Hoover MD on 09/24/2020 06:43 PM
[2020-09-09] MEDS: diphenhydrAMINE 50 mg Capsule PO (07:46)
--- NOTE | 2020-09-09 08:49 | W.PM.OPSUD ---
Surgery/Procedure H&P Update DATE OF PROCEDURE: September 09, 2020 DATE H&P PERFORMED: 08/17/20 H&P UPDATE INFORMATION: I have reviewed H&P completed within last 30 days, I have examined patient prior to procedure and No changes to prior documentation PREOP DIAGNOSIS: Severe life style limiting claudication PRIMARY INDICATION FOR PROCEDURE: Severe lifestyle limiting claudication PLANNED PROCEDURE: Operation Date: 09/09/20 08:30 Proposed Procedures p Peripheral Diagnostic 57439 I73.9(Not Applicable) - Cornell Hoover M.D Possible peripheral intervention PATIENT REASSESSED PRIOR TO SEDATION, WITH NO CHANGE NOTED: Yes PHYSICAL EXAM: alert, oriented x 3 and clear to auscultation bilaterally AIRWAY EVAL/ANESTHESIA PLAN: ASA III, Monitored Anesthesia, Local Anesthesia, Risks, benefits & alternatives of sedation and/or procedure discussed and Patient agrees to continue as planned
[2020-09-09] MEDS: sodium chloride 0.9% 1,000 ML 50 ML IV (11:00)
[2020-09-09 15:22] LABS: Glucose Point of Care 82 mg/dL (70-110)
[2020-09-09] MEDS: nitroglycerin 1 gm/inch oint Pkt 1 INCH TOPICAL (17:07)
[2020-09-09] MEDS: cilostazol 100 mg Tablet 25 MG PO (17:07)
--- NOTE | 2020-09-09 19:48 | PC.NURSE ---
[address] Hoover to remove patient's left femoral sheath. 1200 Removed left femoral sheath. Manual pressure held for 15 minutes. Hemostatisis achieved. 4x4 and Tegaderm dressing applied. DP and PT pulses dopplered. 1550 Clarified order for metformin with Dr. Hoover. Orders to hold for [address] Hoover at bedside. Orders to ambulate patient. 1700 Amb[address] patient in hallway. Tolerated well.
[2020-09-09] MEDS: apixaban 5 mg Tablet 2.5 MG PO (21:15)
[2020-09-10] VITALS (30 sets, daily range): BP systolic 113–143; BP diastolic 60–83; PULSE 80–98; RESP 15–25; TEMP 36–37; O2SAT 90–96
[2020-09-10] MEDS: nitroglycerin 1 gm/inch oint Pkt 1 INCH TOPICAL ×2 (00:06→05:49)
[2020-09-10 07:51] LABS: Glucose Point of Care 181 mg/dL (70-110)
--- NOTE | 2020-09-10 08:47 | P.SS_ITS ---
Short Stay Summary Providers Date of Admit/Discharge: 09/14/20 Attending Provider: Cornell Hoover M.D Primary Care Provider: Shavonne Biswas MD Chief Complaint: periphereal HPI History of Present Illness Marbin Funez is a 74 year old male with pmh of diabetes, CAD with prior LAD stent last year and right iliac stenting was referred for severe leg pain on exertion. Patient went to ER recently. Patient had diminished pulses in the right lower extremity. His leg pain is life style limiting. KATHERYN on the right side was 0.4. Review of Systems Const: Denies: fever(s) or chills Card: Denies: chest pain or dyspnea on exertion Resp: Denies: dyspnea or productive cough GI: Denies: abdominal pain, nausea or vomiting Musc: Denies: extremity pain, extremity swelling or limited range of motion Skin/Breast: Reports: changes in skin color, dry skin, nail changes and change in hair Neuro: Reports: numbness in extremities; Denies: weakness in extremities Psych: Denies: anxiety Slick/Lymph: Denies: easy bruising or easy bleeding Home Meds/Allergies Home Medications and Allergies Home Medications Medication Instructions Recorded Confirmed Type acarbose 100 mg tablet 100 mg PO TID@0800,1200,2000 09/18/19 09/09/20 History aspirin 81 mg tablet,delayed 81 mg PO DAILY@0800 09/18/19 09/09/20 History release atorvastatin 80 mg tablet 40 mg PO DAILY 09/18/19 09/09/20 History cholecalciferol (vitamin D3) 25 25 mcg PO DAILY@0800 09/18/19 09/09/20 History mcg (1,000 unit) capsule insulin aspart U-100 100 unit/mL 12 unit SUBCUT TID 09/18/19 09/09/20 History (3 mL) subcutaneous pen insulin glargine 100 unit/mL (3 40 unit SUBCUT DAILY 09/18/19 09/09/20 History mL) subcutaneous pen lisinopril 40 mg tablet 20 mg PO DAILY 09/18/19 09/09/20 History metformin 850 mg tablet 850 mg PO TID 09/18/19 09/09/20 History wxfookzr-piu-jsknf acid 0.4 1 tab PO DAILY@0800 09/18/19 09/09/20 History mg-lycopene 300 mcg-lutein 250 mcg tablet cetirizine 10 mg PO DAILY@0808/11/20 09/09/20 History clopidogrel 75 mg PO DAILY@79908/11/20 09/09/20 History fluticasone propionate 1 spray INTRANASAL DAILY@79908/11/20 09/09/20 History isosorbide mononitrate 30 mg PO DAILY@79908/11/20 09/09/20 History olodaterol 2 inh INHALATION DAILY@79908/11/20 09/09/20 History polyethylene glycol 3350 17 g PO DAILY 08/11/20 09/09/20 History Allergies Allergy/AdvReac Type Severity Reaction Status Date / Time No Known Allergies Allergy Verified 09/08/20 09:52 PFSH Acute PFSH: Medical History Bladder cancer Lung nodule PVD (peripheral vascular disease) Type 2 diabetes mellitus with diabetic polyneuropathy Surgical History H/O colonoscopy H/O esophagogastroduodenoscopy (04/01/20) H/O heart artery stent History of bladder surgery History of bronchoscopy History of surgical removal of pilonidal cyst Port-A-Cath in place (04/01/20) Family History Other CAD (coronary artery disease) Cancer Diabetes Hyperlipidemia Hypertension Lung disease Denies family history of Clotting disorder Dementia Psychiatric illness Chronic kidney disease (CKD) Suicide Anesthesia complication Bleeding disorder Family history of premature coronary artery disease Stroke Social History Smoking and tobacco status: former smoker Quit status (tobacco): has quit using tobacco Year quit tobacco: 2007 - 2- PPD x 45 Years Alcohol intake: never Lives independently: Yes Household members: spouse Marital status: service: Yes Current occupational status: retired History of recent travel: No Current gender identity: Male Vitals/I&O/Wt Last Vital Signs Temp 96.8 F L 09/10/20 04:00 Pulse 80 09/10/20 07:24 Resp 19 H 09/10/20 06:15 BP 140/74 09/10/20 06:15 Pulse Ox 92 09/10/20 07:24 09/09/20 09/10/20 09/10/20 22:59 06:59 14:59 Intake Total 500 / 600 1092.5 / 1692.5 Output Total 750 / 1150 Balance -250 / -550 1092.5 / 542.5 Weight last 48 hrs Weight 190 lb Physical Exam Narrative: EXAM NARRATIVE: GENERAL: Patient is alert, awake and oriented x3. [] NECK: No jugular vein distension. [] HEENT: No cyanosis. No icterus. No pallor. [] HEART: Regular S1 and S2. No murmur, rub or gallop. [] LUNGS: Clear to auscultate bilaterally. [] ABDOMEN: Soft, nontender and nondistended. Positive bowel sounds. No guarding, rebound or tenderness. [] CENTRAL NERVOUS SYSTEM: Grossly nonfocal. [] EXTREMITIES: Lower extremities with no edema bilaterally. Right lower extremity has no palpable pulses. However pedis and posterior tibial artery are dopplerable and have good signal. Hospital Course Admission Diagnoses Marbin Funez is a 74 year old male with pmh of diabetes, CAD with prior LAD stent last year and right iliac stenting was referred for severe leg pain on exertion. Patient went to ER recently. Patient had diminished pulses in the right lower extremity. His leg pain is life style limiting. KATHERYN on the right side was 0.4. Peripheral angiogram showed right SFA severely calcified, severe disease. Attempt at revascularization was not possible because of lack of support. There was a dissection in the SFA, however dopplerable pulses, both DP and PT. We aborted the procedure at this time. Next morning patient's foot was warm with dopplerable dorsalis pedis and posterior tibial artery. Patient was started on Eliquis 2.5 mg in addition to his aspirin and Plavix. Cilostazol was held. He will be brought back to the [facility] in 2 weeks for reattempt at revascularization going from popliteal artery to support. SSS Data Data Completed and Pending: Pending at discharge Category Date Time Status RESEARCH ARCHAEOLOGIST request for service Routin e Exams 09/09/20 07:30 Taken Discharge Plan Discharge Patient Disposition: Home Condition: Stable Prescriptions: New Eliquis 5 mg Tablet 2.5 mg PO BID@0900,2100 Qty: 30 RF: 1 Continued cholecalciferol (vitamin D3) 25 mcg (1,000 unit) capsule 25 mcg PO DAILY@0800 RF: 0 acarbose 100 mg tablet 100 mg PO TID@0800,1200,2000 RF: 0 lisinopril 40 mg tablet 20 mg PO DAILY RF: 0 aspirin 81 mg tablet,delayed release (DR/EC) 81 mg PO DAILY@0800 RF: 0 atorvastatin 80 mg tablet 40 mg PO DAILY RF: 0 Centrum Silver 0.4-300-250 mg-mcg-mcg tablet 1 tab PO DAILY@0800 RF: 0 insulin aspart U-100 [Novolog Flexpen U-100 Insulin] 100 unit/mL (3 mL) insulin pen 12 unit SUBCUT TID RF: 0 insulin glargine 100 unit/mL (3 mL) insulin pen 40 unit SUBCUT DAILY RF: 0 (DME) Sole supports Qty: 1 RF: 0 (DME) Custom orthotics See Rx Instructions .Route .MEDSUPPLY Qty: 1 RF: 0 cetirizine 10 mg Tablet 10 mg PO DAILY@0800 RF: 0 isosorbide mononitrate 30 mg Tablet Extended Release 24 Hr 30 mg PO DAILY@0800 RF: 0 clopidogrel 75 mg Tablet 75 mg PO DAILY@0800 RF: 0 polyethylene glycol 3350 17 gram/dose Powder 17 g PO DAILY RF: 0 fluticasone propionate 50 mcg/actuation [place],Suspension 1 spray INTRANASAL DAILY@0800 RF: 0 olodaterol 2.5 mcg/actuation Mist 2 inh INHALATION DAILY@0800 RF: 0 hydrocodone-acetaminophen 5-325 mg tablet 1 tab PO Q6H PRN (Reason: pain) Qty: 14 RF: 0 Held metformin 850 mg tablet 850 mg PO TID RF: 0 Hold Instructions: Resume on 09/12/20. Discontinued cilostazol 50 mg tablet 25 mg PO BID RF: 0 Discharge Orders: Discharge Order (Routine); Ordered 09/10/20 Ordered By: Cornell Hoover Referrals: Michell Maki FNP [Nurse Practitioner] - 7-10 days (APPOINTMENT FOR FOLLOWUP POST PERIPHERAL ANGIOGRAM FOR THE FOLLOWING DATE SEPTEMBER 17Monday ,AT TIME OF 10:30 WITH MICHELL Hunter ) Discharge Diet: Cardiac Discharge Activity: Increase activity as tolerated Patient Instructions: Apixaban (By mouth), Peripheral Vascular Angioplasty (DC), Opioid Safety, Post Angiogram Home Care Instructions Activity Restrictions/Additional Instructions: Please do not lift more than 5 pounds of weight for the next 5 days. Attestations Medical Necessity Statement*: Care not expected to cross 2 midnights. Patient presented as outpatient for peripheral angiogram with possible intervention. Time Spent in Patient Care*: greater than 30 min Quality Metrics Clinical Quality Measures: During this hospital stay, did patient experience: None Coding Level of Care Code Acute Director Student [employer] for [facility]en Rosas
[2020-09-10] MEDS: apixaban 5 mg Tablet 2.5 MG PO (08:48)
[2020-09-10] MEDS: aspirin 81 mg EC Tablet PO (08:48)
[2020-09-10] MEDS: clopidogrel 75 mg Tablet PO (08:48)
[2020-09-10] MEDS: cetirizine 10 mg Tablet PO (08:48)
[2020-09-10] MEDS: isosorbide mononitrate ER 30 mg Tablet PO (08:48)
[2020-09-10] MEDS: cholecalciferol (vitamin D3) 1,000 unit Tablet 1000 UNIT PO (08:48)
[2020-09-10] MEDS: cilostazol 100 mg Tablet 25 MG PO (08:49)
[2020-09-10] MEDS: atorvastatin 40 mg Tablet PO (08:49)
--- NOTE | 2020-09-10 09:47 | PC.NURSE ---
0807 Reported short run of wide complex tachycardia to Dr. Hoover. Strip posted to chart. Reported that patient was a symptomatic and blood pressure WNL. 0830 Dr. Hoover at bedside. Discussed plan of care to discharge patient home today.
== END 2020-09-10 11:00 | disposition home or self-care (01) ==
LOC: ICU 08:47
PROVIDERS: Admitting Provider Internal Medicine; PCP Family Medicine; Visit Provider Internal Medicine
DX: I73.9 Peripheral vascular disease, unspecified (principal); I25.10 Atherosclerotic heart disease of native coronary artery without angina pectoris; Z79.82 Long term (current) use of aspirin; Z79.4 Long term (current) use of insulin; E11.42 Type 2 diabetes mellitus with diabetic polyneuropathy; Z82.49 Family history of ischemic heart disease and other diseases of the circulatory system; Z83.3 Family history of diabetes mellitus; Z87.891 Personal history of nicotine dependence
CPT/HCPCS: 36416; 75625; 75716; 82962; 96372; C1769; C1887; C1894; G0378; J1644; J1815; J2250; J3010; J3490; J7030; Q0163; Q9967

== ENCOUNTER → 2020-09-17 11:07 | Outpatient (BNVA) | payer OTHER, SELFPAY | PROVIDERS: PCP Family Medicine; Visit Provider Nurse Practitioner Family | DX: I73.9 Peripheral vascular disease, unspecified (principal); Z20.822 Contact with and (suspected) exposure to COVID-19 | CPT/HCPCS: 80048; 85025; 85610; 87635 ==

== ENCOUNTER 2020-09-22 08:48 | Day surgery (SDC) | payer OTHER, SELFPAY ==
[2020-09-22] VITALS (24 sets, daily range): BP systolic 121–149; BP diastolic 67–85; PULSE 83–93; RESP 7–24; TEMP 36.4–36.6; O2SAT 95–100; BMI 26.9
--- NOTE | 2020-09-22 | XACV_ITS ---
Wt: 85 kg BSA: 2.07 m2 Any Known Allergies: No known allergies Gender: Male : 1945 Exam Type: Invasive Peripheral Vascular Procedure(s): Procedure Description: Peripheral Cath Diagnostic Procedure Procedure Description: Orbital arthrectomy Procedure Description: Peripheral balloon angioplasty Exam Priority: Routine Lower Extremity Diagnostic Findings This was a staged planned peripheral intervention. For complete peripheral angiogram please refer to report from 09/09/2020. Lower Extremity Interventional Findings Indication for peripheral angiogram and intervention of the left popliteal, left SFA for lifestyle limiting claudication. Now having resting leg pain also consistent with critical limb ischemia. Procedure detail: CSI atherectomy was used followed by Lutonix drug-eluting balloons. Patient was explained all risk benefit alternative for drug-coated balloon he understand FDA warning for drug-coated balloon with increased mortality in that subgroup, he gave me permission to proceed with it. Peripheral angiogram: Ostial to distal right SFA with proximal popliteal vessel was occluded. Through right popliteal approach we were able to place 6 Prydeinig sheath Glidewire with the help of seeker helped us in crossing the lesion. After crossing into abdominal aorta Viper wire was exchanged CSI atherectomy using 2.0 bur was used with multiple passes followed by nondrug-coated and drug-coated balloon angioplasty. Please see inventory for the balloon used. Excellent angiographic result with good below the knee One-vessel runoff and good collaterals was noted.. Conclusions Successful revascularization of the right SFA/ popliteal artery. Recommendations Transfer to CSU. Continue aspirina and plavix. Hemodynamic Data Phase:Rest AO : 204.0 / 90.0 ( 137.0 ) @ 10:58:00 AM 151.0 / 78.0 ( 111.0 ) @ 11:14:00 AM Access Site Site: Right Popliteal Sheath Size: 6 Fr Hemost... Method: Manual Compression Hemost... Success: Successful Site: Right Popliteal Sheath Size: 6 Fr Hemost... Method: Mechanical Compression Hemost... Success: Unsuccessful Procedure Details Findings Procedure Consent Obtained. Pre-Procedure Time Out. Identified patient by full name and date of as verbalized by the patient/guarantor. Does the consent match the physician's order: Yes. Accurate & Complete Informed Consent: Yes. Inpatient/Outpatient History & Physical on Chart: Yes. If H&P is completed, is and addenduem needed: No; If yes, is the addendum complete: N/A. Visualize and Verify Site with Patient/Guarantor: N/A. Relevant Radiology Images available: N/A. Pre-op teaching completed and patient verbalized understanding. The risks, benefits, and alternatives of sedation and/or procedure were discussed by physician. The patient agrees to continue. Procedure started. Correct patient, site and procedure confirmed by cath team. PERRLA. Strong, equal hand records management engineer bilaterally. Lungs clear x 5 lobes. IV Fluids: 0.9% NaCl at KVO. 0 mL infused prior to laborer turkey farm. Pre Procedural Pulses: left dorsalis pedis was Doppled. Pre Procedural Pulses: bilateral posterior tibial was Doppled. Physician arrived. Equipment: Peripheral. Cardiac Cath Pack. ACIST Manifold Kit Model BT 2000. Heparinized Saline (2 units/mL), 1000 mL bag. Oxygen started at 2liters/min via nasal canula. popliteal was prepped with chloroprep then draped in the usual sterile fashion. Baseline sample Acquired. HR: 90 BPM. Pt has Portacath in left upper chest for IV access. Pre Procedural Pulses: right dorsalis pedis was Absent. Pre op diagnosis: PVD. Physician scrubbed in. Time out performed with cath team. Lidocaine 1% infiltrated to the right popliteal. Dr Hoover using ultrasound machine to attempt to gain right popliteal access. Called cath laboratory technician to come assist. Abel from ultrasound arrived. Arterial access obtained with micropuncture set. offshore wind turbine technician no longer needed. Microdilator inserted. Hand injection performed. Hand injection performed through sheath. Glidewire inserted. Unable to advance wire through the calcified vessel. Glidewire out. Runthrough 300 cm wire inserted. Unable to advance wire through the calcified vessel. Runthrough wire out. Glidewire inserted. Microdilator sheath out. Dr Ordonez scrubbed in to assist Dr Hoover. SEEKER support catheter inserted over glidewire. SEEKER out. Wire out. Manual pressure held at access site by Dr Hoover. Ultrasound machine used again to find access. Arterial access obtained with micropuncture set. Pedal access 4 fr kit used. Unable to advance Pedal Access kit. Attempt to place 5 fr Glidesheath. Unable to advance sheath. All access devices removed. Manual pressure held at access site by Dr Hoover. Inventory is Ultrasound Probe Cover. Inventory is Ultrasound Probe Cover. Inventory is Ultrasound Probe Cover. Ultrasound machine used again to find access. Venous access obtained. Wire and needle out. Manual pressure held by Dr Hoover. Arterial access obtained with micropuncture set. Attempt to placed 6 fr sheath. 5 fr microdilator inserted. Glidewire inserted through dilator. Glidewire advanced to distal aorta. Dilator out. SEEKER catheter inserted over glidewire. Wire out. Seeker parked in distal aorta. VIPER wire inserted. Seeker catheter out. 2.00 Diamondback 360 Peripheral orbital atherectomy device inserted over the VIPER wire to Right SFA. Difficulty advancing the atherectomy device into vessel due to highly calcified vessel. Atherectomy device seated in distal SFA. Orbital atherectomy performed in Right distal SFA. Orbital atherectomy performed in Right distal to mid SFA. Orbital atherectomy performed in Right mid SFA. Orbital atherectomy performed in Right mid SFA. Orbital atherectomy performed in Right mid to prox SFA. Atherectomy device removed over VIPER wire. Atherectomy device caught in the sheath. Atherectomy device removed over VIPER wire. New 6 fr sheath inserted. A Manual Compression was successful obtaining hemostatsis at the Right Popliteal insertion site. Called surgery to see if they have sterile wire cutters. Sheath out with VIPER wire in. Mircrodilator in over wire. Microdilator out. Fresh 6 fr glidesheath inserted. Unable to insert sheath. A new glidesheath was attempted to insert. Sheath successful insertion. Seeker inserted over VIPER wire. Seeker seated in distal aorta. Viper wire out. Glidewire inserted. Inflation number : 1 A AB [place] 35 ABLE BODIED SEAMAN Catheter [id number] was prepped and advanced across the Superficial Femoral, Right , then inflated to 10 SHERITA for 2:03 seconds. Inflation number: 2 The AB [place] 35 ABLE BODIED SEAMAN Catheter [id number] was reinflated across the Superficial Femoral, Right, to 4 SHERITA for 0:12 seconds. Inflation number: 3 The AB [place] 35 ABLE BODIED SEAMAN Catheter [id number] was reinflated across the Superficial Femoral, Right, to 4 SHERITA for 0:07 seconds. Inflation number: 4 The AB [place] 35 ABLE BODIED SEAMAN Catheter [id number] was reinflated across the Superficial Femoral, Right, to 8 SHERITA for 2:03 seconds. Balloon out over wire. Right leg runoff 10 ml for total of 30 ml. Inflation number : 5 A BARD Lutonix 7.0x40mm drug coated balloon was prepped and advanced across the Superficial Femoral, Right , then inflated to 7 SHERITA for 1:01 seconds. Inflation number: 6 The BARD Lutonix 7.0x40mm drug coated balloon was reinflated across the Superficial Femoral, Right, to 12 SHERITA for 1:33 seconds. Balloon out over wire. Hand injection performed. Inflation number : 7 A AB [place] 35 OTW [id number] was prepped and advanced across the Superficial Femoral, Right , then inflated to 8 SHERITA for 2:08 seconds. Balloon out over wire. Right leg runoff 10 ml for total of 30 ml to check results. Right leg runoff 10 ml for total of 30 ml to check results. Right leg runoff 10 ml for total of 30 ml to check results with DSA. Inflation number: 8 The AB ARMADA 35 OTW [id number] was reinflated across the Superficial Femoral, Right, to 14 SHERITA for 1:33 seconds. Balloon out over wire. Glidewire out. A Mechanical Compression was unsuccessful obtaining hemostatsis at the Right Popliteal insertion site. MYNX closure device used for closure. Unsuccessful. Lot # [id number] exp date 02/11/2022. Physicians scrubbed out. Post Procedure: Pulses reassessed and unchanged. PERRLA. Strong, equal hand records management engineer bilaterally. No VTE prophylaxis required. Sheath(s) removed and manual pressure held until hemostasis was achieved. Sterile 4x4 and Op-site applied to the puncture site. No oozing or hematoma noted. Post sheath removal instructions were given and the patient verbalized understanding. Medication's Wasted: Lidocaine 1% = 10 mL. Medication's Wasted: Nitro = 49.4 mg. Medication's Wasted: Heparin = 1000 units. Total IV fluids: 225 mL. Contrast type used: Visipaque 320 mgI/mL, 500 mL bottle. Post-op diagnosis: Severe PVD, severe SFA stenosis. Complications: none. Estimated blood loss: 5mL-10mL. Procedure completed. Patient transferred by bed to 1st floor. Vital chart was stopped. Procedure Medications Start: 9:50 AM Stop: 9:50 AM Medication: Versed Amount: 0.5 mg Route: I.V. Start: 10:03 AM Stop: 10:03 AM Medication: Versed Amount: 0.5 mg Route: I.V. Start: 10:11 AM Stop: 10:11 AM Medication: Fentanyl Amount: 25 mcg Route: I.V. Start: 10:13 AM Stop: 10:13 AM Medication: Versed Amount: 1 mg Route: I.V. Start: 10:23 AM Stop: 10:23 AM Medication: Fentanyl Amount: 25 mcg Route: I.V. Start: 10:38 AM Stop: 10:38 AM Medication: Versed Amount: 1 mg Route: I.V. Start: 10:42 AM Stop: 10:42 AM Medication: Fentanyl Amount: 25 mcg Route: I.V. Start: 10:55 AM Stop: 10:55 AM Medication: Versed Amount: 1 mg Route: I.V. Start: 11:07 AM Stop: 11:07 AM Medication: Heparin Amount: 5000 units Route: I.V. Start: 11:12 AM Stop: 11:12 AM Medication: Fentanyl Amount: 25 mcg Route: I.V. Start: 11:20 AM Stop: 11:20 AM Medication: Fentanyl Amount: 50 mcg Route: I.V. Start: 11:34 AM Stop: 11:34 AM Medication: Versed Amount: 1 mg Route: I.V. Start: 11:45 AM Stop: 11:45 AM Medication: Versed Amount: 1 mg Route: I.V. Start: 11:46 AM Stop: 11:46 AM Medication: Fentanyl Amount: 50 mcg Route: I.V. Start: 11:57 AM Stop: 11:57 AM Medication: Heparin Amount: 3000 units Route: I.V. Start: 11:58 AM Stop: 11:58 AM Medication: Fentanyl Amount: 50 mcg Route: I.V. Start: 12:14 PM Stop: 12:14 PM Medication: Nitrogylcerin Amount: 600 mcg Route: I.A. Start: 12:42 PM Stop: 12:42 PM Medication: Fentanyl Amount: 50 mcg Route: I.V. Start: 12:53 PM Stop: 12:53 PM Medication: Fentanyl Amount: 50 mcg Route: I.V. I, the attending physician, have reviewed and verified all procedure medications. Yes, all medications given per verbal order Report Signatures Finalized by Cornell Hoover MD on 10/06/2020 12:50 PM
--- NOTE | 2020-09-22 09:00 | XACV_ITS ---
Wt: 85 kg BSA: 2.07 m2 Any Known Allergies: No known allergies Gender: Male : 1945 Exam Type: Invasive Peripheral Vascular Procedure(s): Procedure Description: Peripheral Cath Diagnostic Procedure Exam Priority: Routine Lower Extremity Interventional Findings Indication for peripheral angiogram and intervention of the left popliteal, left SFA for lifestyle limiting claudication. CSI atherectomy was used followed by Lutonix drug-eluting balloons. Patient was explained all risk benefit alternative for drug-coated balloon he understand FDA warning for drug-coated balloon with increased mortality in that subgroup, he gave me permission to proceed with it. Peripheral angiogram: Ostial to distal left SFA with proximal popliteal vessel was occluded. Through left popliteal approach we were able to place 6 [place] sheath Glidewire with the help of seeker helped us in crossing the lesion. After crossing into abdominal aorta Viper wire was exchanged CSI atherectomy using 2.0 bur was used with multiple passes followed by nondrug-coated and drug-coated balloon angioplasty. Please see inventory for the balloon used. Excellent angiographic result with good below the knee One-vessel runoff and good collaterals was noted.. Recommendations Usual post-cath care, continue Plavix and aspirin. Hemodynamic Data Phase:Rest AO : 204.0 / 90.0 ( 137.0 ) @ 10:58:00 AM 151.0 / 78.0 ( 111.0 ) @ 11:14:00 AM Access Site Site: Right Popliteal Sheath Size: 6 Fr Hemost... Method: Manual Compression Hemost... Success: Successful Site: Right Popliteal Sheath Size: 6 Fr Hemost... Method: Mechanical Compression Hemost... Success: Unsuccessful Procedure Details Findings Procedure Consent Obtained. Pre-Procedure Time Out. Identified patient by full name and date of as verbalized by the patient/guarantor. Does the consent match the physician's order: Yes. Accurate & Complete Informed Consent: Yes. Inpatient/Outpatient History & Physical on Chart: Yes. If H&P is completed, is and addenduem needed: No; If yes, is the addendum complete: N/A. Visualize and Verify Site with Patient/Guarantor: N/A. Relevant Radiology Images available: N/A. Pre-op teaching completed and patient verbalized understanding. The risks, benefits, and alternatives of sedation and/or procedure were discussed by physician. The patient agrees to continue. Procedure started. Correct patient, site and procedure confirmed by cath team. PERRLA. 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 Lungs clear x 5 lobes. IV Fluids: 0.9% NaCl at KVO. 0 mL infused prior to metallurgy laboratory technician. Pre Procedural Pulses: left dorsalis pedis was Doppled. Pre Procedural Pulses: bilateral posterior tibial was Doppled. Physician arrived. Equipment: Peripheral. Cardiac Cath Pack. ACIST Manifold Kit Model BT 2000. Heparinized Saline (2 units/mL), 1000 mL bag. Oxygen started at 2liters/min via nasal canula. popliteal was prepped with chloroprep then draped in the usual sterile fashion. Baseline sample Acquired. HR: 90 BPM. Pt has Portacath in left upper chest for IV access. Pre Procedural Pulses: right dorsalis pedis was Absent. Pre op diagnosis: PVD. Physician scrubbed in. Time out performed with cath team. Lidocaine 1% infiltrated to the right popliteal. Dr Hoover using ultrasound machine to attempt to gain right popliteal access. Called auto glass technician to come assist. Abel from ultrasound arrived. Arterial access obtained with micropuncture set. writer technical publications no longer needed. Microdilator inserted. Hand injection performed. Hand injection performed through sheath. Glidewire inserted. Unable to advance wire through the calcified vessel. Glidewire out. Runthrough 300 cm wire inserted. Unable to advance wire through the calcified vessel. Runthrough wire out. Glidewire inserted. Microdilator sheath out. Dr Ordonez scrubbed in to assist Dr Hoover. SEEKER support catheter inserted over glidewire. SEEKER out. Wire out. Manual pressure held at access site by Dr Hoover. Ultrasound machine used again to find access. Arterial access obtained with micropuncture set. Pedal access 4 fr kit used. Unable to advance Pedal Access kit. Attempt to place 5 fr Glidesheath. Unable to advance sheath. All access devices removed. Manual pressure held at access site by Dr Hoover. Inventory is Ultrasound Probe Cover. Inventory is Ultrasound Probe Cover. Inventory is Ultrasound Probe Cover. Ultrasound machine used again to find access. Venous access obtained. Wire and needle out. Manual pressure held by Dr Hoover. Arterial access obtained with micropuncture set. Attempt to placed 6 fr sheath. 5 fr microdilator inserted. Glidewire inserted through dilator. Glidewire advanced to distal aorta. Dilator out. SEEKER catheter inserted over glidewire. Wire out. Seeker parked in distal aorta. VIPER wire inserted. Seeker catheter out. 2.00 Diamondback 360 Peripheral orbital atherectomy device inserted over the VIPER wire to Right SFA. Difficulty advancing the atherectomy device into vessel due to highly calcified vessel. Atherectomy device seated in distal SFA. Orbital atherectomy performed in Right distal SFA. Orbital atherectomy performed in Right distal to mid SFA. Orbital atherectomy performed in Right mid SFA. Orbital atherectomy performed in Right mid SFA. Orbital atherectomy performed in Right mid to prox SFA. Atherectomy device removed over VIPER wire. Atherectomy device caught in the sheath. Atherectomy device removed over VIPER wire. New 6 fr sheath inserted. A Manual Compression was successful obtaining hemostatsis at the Right Popliteal insertion site. Called surgery to see if they have sterile wire cutters. Sheath out with VIPER wire in. Mircrodilator in over wire. Microdilator out. Fresh 6 fr glidesheath inserted. Unable to insert sheath. A new glidesheath was attempted to insert. Sheath successful insertion. Seeker inserted over VIPER wire. Seeker seated in distal aorta. Viper wire out. Glidewire inserted. Inflation number : 1 A AB Baldwin 35 EMS DRIVER Catheter [id number] was prepped and advanced across the Superficial Femoral, Right , then inflated to 10 SHERITA for 2:03 seconds. Inflation number: 2 The AB Baldwin 35 EMS DRIVER Catheter [id number] was reinflated across the Superficial Femoral, Right, to 4 SHERITA for 0:12 seconds. Inflation number: 3 The AB Baldwin 35 EMS DRIVER Catheter [id number] was reinflated across the Superficial Femoral, Right, to 4 SHERITA for 0:07 seconds. Inflation number: 4 The AB Baldwin 35 EMS DRIVER Catheter [id number] was reinflated across the Superficial Femoral, Right, to 8 SHERITA for 2:03 seconds. Balloon out over wire. Right leg runoff 10 ml for total of 30 ml. Inflation number : 5 A BARD Lutonix 7.0x40mm drug coated balloon was prepped and advanced across the Superficial Femoral, Right , then inflated to 7 SHERITA for 1:01 seconds. Inflation number: 6 The BARD Lutonix 7.0x40mm drug coated balloon was reinflated across the Superficial Femoral, Right, to 12 SHERITA for 1:33 seconds. Balloon out over wire. Hand injection performed. Inflation number : 7 A AB ARMADA 35 OTW [id number] was prepped and advanced across the Superficial Femoral, Right , then inflated to 8 SHERITA for 2:08 seconds. Balloon out over wire. Right leg runoff 10 ml for total of 30 ml to check results. Right leg runoff 10 ml for total of 30 ml to check results. Right leg runoff 10 ml for total of 30 ml to check results with DSA. Inflation number: 8 The AB ARMADA 35 OTW [id number] was reinflated across the Superficial Femoral, Right, to 14 SHERITA for 1:33 seconds. Balloon out over wire. Glidewire out. A Mechanical Compression was unsuccessful obtaining hemostatsis at the Right Popliteal insertion site. MYNX closure device used for closure. Unsuccessful. Lot # [id number] exp date 02/11/2022. Physicians scrubbed out. Post Procedure: Pulses reassessed and unchanged. PERRLA. 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 No VTE prophylaxis required. Sheath(s) removed and manual pressure held until hemostasis was achieved. Sterile 4x4 and Op-site applied to the puncture site. No oozing or hematoma noted. Post sheath removal instructions were given and the patient verbalized understanding. Medication's Wasted: Lidocaine 1% = 10 mL. Medication's Wasted: Nitro = 49.4 mg. Medication's Wasted: Heparin = 1000 units. Total IV fluids: 225 mL. Contrast type used: Visipaque 320 mgI/mL, 500 mL bottle. Post-op diagnosis: Severe PVD, severe SFA stenosis. Complications: none. Estimated blood loss: 5mL-10mL. Procedure completed. Patient transferred by bed to 1st floor. Vital chart was stopped. Procedure Medications Start: 9:50 AM Stop: 9:50 AM Medication: Versed Amount: 0.5 mg Route: I.V. Start: 10:03 AM Stop: 10:03 AM Medication: Versed Amount: 0.5 mg Route: I.V. Start: 10:11 AM Stop: 10:11 AM Medication: Fentanyl Amount: 25 mcg Route: I.V. Start: 10:13 AM Stop: 10:13 AM Medication: Versed Amount: 1 mg Route: I.V. Start: 10:23 AM Stop: 10:23 AM Medication: Fentanyl Amount: 25 mcg Route: I.V. Start: 10:38 AM Stop: 10:38 AM Medication: Versed Amount: 1 mg Route: I.V. Start: 10:42 AM Stop: 10:42 AM Medication: Fentanyl Amount: 25 mcg Route: I.V. Start: 10:55 AM Stop: 10:55 AM Medication: Versed Amount: 1 mg Route: I.V. Start: 11:07 AM Stop: 11:07 AM Medication: Heparin Amount: 5000 units Route: I.V. Start: 11:12 AM Stop: 11:12 AM Medication: Fentanyl Amount: 25 mcg Route: I.V. Start: 11:20 AM Stop: 11:20 AM Medication: Fentanyl Amount: 50 mcg Route: I.V. Start: 11:34 AM Stop: 11:34 AM Medication: Versed Amount: 1 mg Route: I.V. Start: 11:45 AM Stop: 11:45 AM Medication: Versed Amount: 1 mg Route: I.V. Start: 11:46 AM Stop: 11:46 AM Medication: Fentanyl Amount: 50 mcg Route: I.V. Start: 11:57 AM Stop: 11:57 AM Medication: Heparin Amount: 3000 units Route: I.V. Start: 11:58 AM Stop: 11:58 AM Medication: Fentanyl Amount: 50 mcg Route: I.V. Start: 12:14 PM Stop: 12:14 PM Medication: Nitrogylcerin Amount: 600 mcg Route: I.A. Start: 12:42 PM Stop: 12:42 PM Medication: Fentanyl Amount: 50 mcg Route: I.V. Start: 12:53 PM Stop: 12:53 PM Medication: Fentanyl Amount: 50 mcg Route: I.V. I, the attending physician, have reviewed and verified all procedure medications. Yes, all medications given per verbal order Report Signatures Finalized by Vita Ordonez MD on 10/03/2020 10:02 PM
[2020-09-22] MEDS: diphenhydrAMINE 50 mg Capsule PO (09:20)
--- NOTE | 2020-09-22 09:37 | W.PM.OPSFHP ---
Same Day Surgery H&P Indication for Procedure/HPI DATE OF PROCEDURE: September 22, 2020 CHIEF COMPLAINT/INDICATIONFOR SURGICAL PROCEDURE: Critical limb ischemia/ Rest leg pain PREOP DIAGNOSIS: Severe life style limiting claudication PLANNED PROCEDRUE: Operation Date: 09/22/20 10:00 Proposed Procedures p Peripheral Diagnostic 82128 I73.9(Not Applicable) - Cornell Hoover M.D 74 year old man with pmh of diabetes, CAD with prior LAD stent last year and right iliac stenting has been having severe right lower extremity pain. Initially it was only exertional but has been noticing resting pain as well. KATHERYN on right leg was 0.4. We attempted revascularization about 2 weeks ago, however not able to perform it from left femoral access. Plan is to do repeated attempt of revascularization from the right popliteal artery access. Risks and benefits of the procedure have been discussed with the patient. Risks including acute limb, bleeding, infection, renal function worsening and have been described. Also the increased mortality with drug-coated balloon has been described. Patient understands the risks and benefits and wants to proceed with the procedure. ROS CONSTITUTIONAL: No fever chills weight loss or gain or night sweats. [] HEENT: Normocephalic, atraumatic.[] RESPIRATORY: No cough, sputum, hemoptysis or wheezing.[] CARDIOVASCULAR: No shortness of breath, chest pain, PND, orthopnea, lower extremity edema, presyncope or syncope. [] GI: no nausea vomiting diarrhea. [] RIGGING UP MAN: No numbness, tingling, weakness or loss of function in any part of the body. [] MUSCULOSKELETAL: No knee or joint pain or rashes. [] Medications/Allergies* Home Medications Medication Instructions Recorded Confirmed Type acarbose 100 mg tablet 100 mg PO TID@0800,1200,199909/18/19 09/22/20 History aspirin 81 mg tablet,delayed 81 mg PO DAILY@0800 09/18/19 09/22/20 History release atorvastatin 80 mg tablet 40 mg PO DAILY 09/18/19 09/22/20 History cholecalciferol (vitamin D3) 25 25 mcg PO DAILY@0800 09/18/19 09/22/20 History mcg (1,000 unit) capsule insulin aspart U-100 100 unit/mL 5 unit SUBCUT TID 09/18/19 09/22/20 History (3 mL) subcutaneous pen insulin glargine 100 unit/mL (3 40 unit SUBCUT DAILY 09/18/19 09/22/20 History mL) subcutaneous pen lisinopril 40 mg tablet 20 mg PO DAILY 09/18/19 09/22/20 History metformin 850 mg tablet 850 mg PO TID 09/18/19 09/22/20 History cjrmqjzt-stv-ggpoi acid 0.4 1 tab PO DAILY@0800 09/18/19 09/22/20 History mg-lycopene 300 mcg-lutein 250 mcg tablet cetirizine 10 mg PO DAILY@0800 08/11/20 09/22/20 History clopidogrel 75 mg PO DAILY@0808/11/20 09/22/20 History fluticasone propionate 1 spray INTRANASAL DAILY@0808/11/20 09/22/20 History isosorbide mononitrate 30 mg PO DAILY@0808/11/20 09/22/20 History olodaterol 2 inh INHALATION DAILY@0808/11/20 09/21/20 History polyethylene glycol 3350 17 g PO DAILY 08/11/20 09/22/20 History Allergies/Adverse Reactions Allergy/AdvReac Type Severity Reaction Status Date / Time No Known Allergies Allergy Verified 09/17/20 10:16 Pertinent History/Comorbid Conditions* Medical History (Updated 09/08/20 @ 13:08 by Joel Moncada DPM) Bladder cancer Lung nodule PVD (peripheral vascular disease) Type 2 diabetes mellitus with diabetic polyneuropathy Surgical History (Updated 04/01/20 @ 09:04 by Stanislav Garcia MD) H/O colonoscopy H/O esophagogastroduodenoscopy (04/01/20) H/O heart artery stent History of bladder surgery History of bronchoscopy History of surgical removal of pilonidal cyst Port-A-Cath in place (04/01/20) Family History (Updated 09/18/19 @ 10:18 by Swetha King LPN) Diabetes CAD (coronary artery disease) Hyperlipidemia Lung disease Cancer Hypertension Denies family history of Clotting disorder Dementia Psychiatric illness Chronic kidney disease (CKD) Suicide Anesthesia complication Bleeding disorder Family history of premature coronary artery disease Stroke Social History Smoking and tobacco status: former smoker Quit status (tobacco): has quit using tobacco Year quit tobacco: 2007- PPD x 45 Years Alcohol intake: never Lives independently: Yes Household members: spouse Marital status: service: Yes Current occupational status: retired History of recent travel: No Current gender identity: Male Pertinent Exam Findings alert, oriented x 3, clear to auscultation bilaterally and regular rate & rhythm Lower extremities: Bilateral lower extremities are warm. Has dopplerable pulses on right lower extremity. Conscious Sedation Assessment PATIENT ASSESSED PRIOR TO SEDATION, WITH NO CHANGE NOTED: Yes AIRWAY EVAL/ANESTHESIA PLAN: normal airway, see other exam findings, ASA III, Monitored Anesthesia, Local Anesthesia, Risks, benefits & alternatives of sedation and/or procedure discussed and Patient agrees to continue as planned Recommendations Surgery/Procedure today (Peripheral angiogram with peripheral intervention) Coding Level of Care Code Acute Elementary Assistant Principal for Carmen Rosas
--- NOTE | 2020-09-22 13:05 | USCV_ITS ---
Marbin Funez Age: 74 Gender: M : 1945 Exam Date: 09/22/2020 13:07 Ordering Phys: Cornell Hoover M.D ([email or web address]) Technologist: Exam Location: Echo Lab Indication: POOR PUSLE Risk Factors: CAD Previous Vascular Surgery: STENTS RIGHT LEFT BP: 150.0 / 75.00 BP: 150.0/ 74.00 0 0 Waveform Velocity (cm/s) Velocity (cm/s) Waveform Monophasic 178.0 Iliac Prox Monophasic Iliac Mid 174.0 Monophasic 178.0 Iliac Distal Monophasic 211.0 HOSPITAL NURSE LIAISON Monophasic 242.0 SFA Prox Monophasic 175.0 SFA Mid Monophasic 179.0 SFA Dist Monophasic POP 179.0 N/A HAND II THERMAL CUTTER Monophasic 27.0 DPA 0.4 KATHERYN FINDINGS Monophasic Doppler waveforms with elevated velocity in the right iliac and femoral artery Phasic and continuous waveforms in the popliteal artery Moderate to heavy diffuse plaques in the iliac and femoral artery on the right side Sluggish flow in the dorsalis pedis artery No Doppler flow signals in the dorsalis pedis artery Abnormal resting KATHERYN of 0.4 on the right side CONCLUSIONS Abnormal resting KATHERYN on the right side, consistent with severe obstructive artery disease. Patent iliac, femoral and popliteal artery on the right side with moderate to heavy diffuse plaques. Severe infrapopliteal disease with features of total occlusion of the posterior tibial artery and collateral filling of the dorsalis pedis artery Compared to the study from 08/11/2020, the posterior tibial artery appears to be totally occluded at this time. The KATHERYN remains unchanged Dr Sharif Arias MD [facility] (Electronically Signed) Final Date: 22 Sep 2020 19:17 S
--- NOTE | 2020-09-22 14:00 | PC.NURSE ---
Pt arrived to room 112-2 at approximately 1345. Pt A&Ox4, Resp even and non-labored no distress noted. Pt had peripheral angiogram prone popiteal right side behind knee. Pt arrived to room with sheath out. received report from ABDI Roman. Was reported in report could not find pulses in right foot by palpitation or Doppler. Pts foot warm with senses intact. Pt had no c/o pain or discomfort. This nurse could not find right foot pulses with palpitation or Doppler. MD notified of absent pulses. No orders were given. No needs voiced from pt. Call light in reach. Will continue to monitor.
[2020-09-22 16:25] LABS: Partial Thromboplastin Time 37.1 SECONDS (23.9-36.7)
[2020-09-22 16:45] LABS: Glucose Point of Care 128 mg/dL (70-110)
--- NOTE | 2020-09-22 19:17 | PM.MISC ---
Miscellaneous Note Purpose of Documentation: Post procedure documentation. Note: Patient underwent successful revascularization of the SFA from popliteal access. We used orbital arthrectomy and balloon angioplasty. At the end of the procedure popliteal artery sheath was removed and a mynx was required. However Mynx was not successful. Pressure was held to attain hemostasis. Patient had some swelling of the right calf. However it stayed soft. Patient's leg and foot are warm. He has intact sensation. Normal movement. He has tenderness in the calf area. Patient did not have good dopplerable pulses post procedure initially. (had only PT dopplerable before procedure). Arterial ultrasound showed visible distal anterior tibial artery with color noted. After few hours of procedure, patient did have intermittent dopplerable posterior tibial artery. Patient is stable and will be observed overnight.
[2020-09-22 20:31] LABS: Glucose Point of Care 208 mg/dL (70-110)
[2020-09-22] MEDS: apixaban 5 mg Tablet 2.5 MG PO (21:07)
[2020-09-22] MEDS: sodium chloride 0.9% 1,000 ML 100 ML IV (21:07)
[2020-09-22 21:34] LABS: Basophils # 0.1 10^3/uL (0.0-0.1); Basophils % 0.6 %; Eosinophils # 0.3 10^3/uL (0.0-0.8); Hematocrit 33.8 % (42.0-52.0); Hemoglobin 10.7 g/dL (11.7-16.6); Lymphocytes % 11.7 %; Mean Corpuscular HGB Conc 31.7 g/dL (30.0-36.0); Mean Corpuscular Hemoglobin 29.7 pg (28.0-34.0); Mean Corpuscular Volume 93.9 fL (80-94); Mean Platelet Volume 8.8 fL (7.4-10.4); Monocytes # 0.9 10^3/uL (0.2-0.9); Monocytes % 10.3 %; Neutrophils # 6.15 10^3/uL (1.8-7.7); Neutrophils % 72.9 %; Nucleated Red Blood Cells % 0 %; Platelet Count 350 10^3/cmm (130-400); White Blood Count 8.4 10^3/uL (4.0-10.0)
[2020-09-23 00:01] VITALS: BP 125/67; PULSE 93; RESP 22; TEMP 36.8; O2SAT 96
[2020-09-23] MEDS: acetaminophen 325 mg Tablet 650 MG PO (00:30)
[2020-09-23 01:38] VITALS: PULSE 77; O2SAT 96
[2020-09-23 04:56] LABS: Basophils # 0.1 10^3/uL (0.0-0.1); Basophils % 0.6 %; Eosinophils # 0.3 10^3/uL (0.0-0.8); Eosinophils % 3.2 %; Hematocrit 28.4 % (42.0-52.0); Hemoglobin 9.1 g/dL (11.7-16.6); Lymphocytes # 0.9 10^3/uL (0.8-4.8); Lymphocytes % 10.5 %; Mean Corpuscular Hemoglobin 29.8 pg (28.0-34.0); Mean Corpuscular Volume 93.1 fL (80-94); Mean Platelet Volume 8.2 fL (7.4-10.4); Monocytes # 0.8 10^3/uL (0.2-0.9); Monocytes % 9.3 %; Neutrophils # 6.73 10^3/uL (1.8-7.7); Neutrophils % 75.9 %; Nucleated Red Blood Cells % 0 %; Platelet Count 294 10^3/cmm (130-400); Red Blood Count 3.05 10^6/uL (4.1-5.3); White Blood Count 8.9 10^3/uL (4.0-10.0)
[2020-09-23 05:12] LABS: Anion Gap 8.6 (5-19); Blood Urea Nitrogen 7 mg/dL (8-23); Calcium 8.3 mg/dL (8.5-10.5); Carbon Dioxide 28 mmol/L (22-29); Chloride 96 mmol/L (98-107); Glucose 188 mg/dL (65-115); Osmolality Calculated 269 mOsm/kg (285-295); Potassium 4.6 mmol/L (3.5-5.1); Sodium 128 mmol/L (136-145)
[2020-09-23 05:38] VITALS: BP 118/64; PULSE 93; RESP 20; TEMP 36.8; O2SAT 96
[2020-09-23 05:50] VITALS: PULSE 93
[2020-09-23 06:56] LABS: Glucose Point of Care 192 mg/dL (70-110)
[2020-09-23 08:00] VITALS: BP 121/64; PULSE 93; RESP 22; TEMP 37.2; O2SAT 96
[2020-09-23] MEDS: apixaban 5 mg Tablet 2.5 MG PO (08:09)
[2020-09-23] MEDS: aspirin 81 mg EC Tablet PO (08:09)
[2020-09-23] MEDS: atorvastatin 40 mg Tablet PO (08:09)
[2020-09-23] MEDS: lisinopril 20 mg Tablet PO (08:11)
[2020-09-23] MEDS: clopidogrel 75 mg Tablet PO (08:11)
--- NOTE | 2020-09-23 10:10 | PC.PHAR ---
pt states his helps him with his medications-pt and pts verified medications-notes are made in the pharmacy comments-pt states he uses his novolog flexpen 5 units tid before meals-va med list has 12 units before meal (s)-pt states he uses his insulin glargine 35-45 units daily at bedtime va med list has 40 units once a day-pt states he has isosorbide mono 30mg but is unsure if he is taking-pt states he is not taking any kind of steroids states he hasnt taken since end july or first august with chemo
[2020-09-23 11:05] LABS: Glucose Point of Care 232 mg/dL (70-110)
--- NOTE | 2020-09-23 11:50 | P.SS_ITS ---
Short Stay Summary Providers Date of Admit/Discharge: 09/28/20 Attending Provider: Cornell Hoover M.D Primary Care Provider: Shavonne Biswas MD Chief Complaint: PVD HPI History of Present Illness Marbin Funez is a 74 year old male with pmh of diabetes, CAD with prior LAD stent last year and right iliac stenting has been having severe right lower extremity pain. Initially it was only exertional but has been noticing resting pain as well. KATHERYN on right leg was 0.4. We attempted revascularization about 2 weeks ago, however not able to perform it from left femoral access. Patient underwent successful revascularization from popliteal access of the SFA. We did orbital arthrectomy and balloon angioplasty. Post intervention, there was some swelling in the calf area. It was also tender. Foot was warm with intact sensation and movement however pulses were not dopplerable. Next morning patient's anterior tibial was dopplerable. He still was having discomfort in the calf region with swelling and I told him that we can perform repeat angiogram to confirm patency of the vessels. However patient wants to be followed as outpatient. Patient has been given the warning signs of increased swelling, cold foot, decreased sensation or movement of the foot, excruciating pain in the leg and informed to come to ER if any of those symptoms started happening. Review of Systems Const: Reports: fatigue (leg) Card: Reports: dyspnea on exertion and orthopnea; Denies: chest pain, palpitations, irregular heart rhythm, edema, syncope, pre- syncope or leg pain with exertion Resp: Reports: non-productive cough Musc: Reports: extremity pain Neuro: Reports: weakness in extremities (leg) Home Meds/Allergies Home Medications and Allergies Home Medications Medication Instructions Recorded Confirmed Type acarbose 100 mg tablet 100 mg PO TID 09/18/19 09/28/20 History aspirin 81 mg tablet,delayed 81 mg PO DAILY@12 09/18/19 09/28/20 History release atorvastatin 80 mg tablet 40 mg PO DAILY 09/18/19 09/28/20 History cholecalciferol (vitamin D3) 25 25 mcg PO DAILY@0800 09/18/19 09/28/20 History mcg (1,000 unit) capsule insulin aspart U-100 100 unit/mL 5 unit SUBCUT TID 09/18/19 09/28/20 History (3 mL) subcutaneous pen insulin glargine 100 unit/mL (3 35 - 45 unit SUBCUT DAILY@22 09/18/19 09/28/20 History mL) subcutaneous pen lisinopril 40 mg tablet 20 mg PO DAILY 09/18/19 09/28/20 History metformin 850 mg tablet 850 mg PO TID 09/18/19 09/28/20 History hpkvklsj-hui-nicqo acid 0.4 1 tab PO DAILY 09/18/19 09/28/20 History mg-lycopene 300 mcg-lutein 250 mcg tablet cetirizine 10 mg PO DAILY 08/11/20 09/28/20 History clopidogrel 75 mg PO DAILY 08/11/20 09/28/20 History fluticasone propionate 1 spray INTRANASAL DAILY PRN 08/11/20 09/28/20 History isosorbide mononitrate 30 mg PO DAILY@0800 08/11/20 09/28/20 History olodaterol 2 inh INHALATION DAILY@0800 08/11/20 09/28/20 History polyethylene glycol 3350 17 g PO DAILY 08/11/20 09/23/20 History Tylenol Extra Strength 1,000 mg PO PRN 09/23/20 09/28/20 History cilostazol 25 mg PO BID 09/23/20 09/28/20 History hydrochlorothiazide 25 mg PO DAILY 09/23/20 09/23/20 History pantoprazole 40 mg tablet,delayed 40 mg PO DAILY 09/28/20 09/28/20 History release Allergies Allergy/AdvReac Type Severity Reaction Status Date / Time No Known Allergies Allergy Verified 09/23/20 10:10 PFSH Acute PFSH: Medical History Bladder cancer Lung nodule PVD (peripheral vascular disease) Type 2 diabetes mellitus with diabetic polyneuropathy Surgical History H/O colonoscopy H/O esophagogastroduodenoscopy (04/01/20) H/O heart artery stent History of bladder surgery History of bronchoscopy History of surgical removal of pilonidal cyst Port-A-Cath in place (04/01/20) Family History Other CAD (coronary artery disease) Cancer Diabetes Hyperlipidemia Hypertension Lung disease Denies family history of Clotting disorder Dementia Psychiatric illness Chronic kidney disease (CKD) Suicide Anesthesia complication Bleeding disorder Family history of premature coronary artery disease Stroke Social History Smoking and tobacco status: former smoker Quit status (tobacco): has quit using tobacco Year quit tobacco: 2007 - - PPD x 45 Years Alcohol intake: never Lives independently: Yes Household members: spouse Marital status: service: Yes Current occupational status: retired History of recent travel: No Current gender identity: Male Vitals/I&O/Wt Last Vital Signs Temp 98.9 F 09/23/20 08:00 Pulse 93 09/23/20 08:00 Resp 22 H 09/23/20 08:00 BP 121/64 09/23/20 08:00 Pulse Ox 96 09/23/20 08:00 09/22/20 09/23/20 09/23/20 22:59 06:59 14:59 Intake Total 240 / 240 120 / 360 1360 / 1360 Output Total 500 / 500 Balance 240 / 240 -380 / -140 1360 / 1360 Weight last 48 hrs Weight 188 lb Physical Exam Narrative: EXAM NARRATIVE: GENERAL: Patient is alert, awake and oriented x3. [] NECK: No jugular vein distension. [] HEENT: No cyanosis. No icterus. No pallor. [] HEART: Regular S1 and S2. No murmur, rub or gallop. [] LUNGS: Clear to auscultate bilaterally. [] ABDOMEN: Soft, nontender and nondistended. Positive bowel sounds. No guarding, rebound or tenderness. [] CENTRAL NERVOUS SYSTEM: Grossly nonfocal. [] EXTREMITIES: Right lower extremity has calf swelling and only dopplerable anterior tibial artery. Hospital Course Hospital Course Marbin Funez is a 74 year old male with pmh of diabetes, CAD with prior LAD stent last year and right iliac stenting has been having severe right lower extremity pain. Initially it was only exertional but has been noticing resting pain as well. KATHERYN on right leg was 0.4. We attempted revascularization about 2 weeks ago, however not able to perform it from left femoral access. Patient underwent successful revascularization from popliteal access of the SFA. We did orbital arthrectomy and balloon angioplasty. Post intervention, there was some swelling in the calf area. It was also tender. Foot was warm with intact sensation and movement however pulses were not dopplerable. Next morning patient's anterior tibial was dopplerable. He still was having discomfort in the calf region with swelling and I told him that we can perform repeat angiogram to confirm patency of the vessels. However patient wants to be followed as outpatient. Patient has been given the warning signs of increased swelling, cold foot, decreased sensation or movement of the foot, excruciating pain in the leg and informed to come to ER if any of those symptoms started happening. SSS Data Data Completed and Pending: Completed Studies During Hospitalization Category Date Time Status US arterial duple x lower extremity RT [CV arterial Ultrasound 09/22/20 13:05 Completed duplex LE RT [id number]] Stat Pending at discharge Category Date Time Status [employer] request for service Routin e Exams 09/22/20 09:00 Taken Discharge Plan Discharge Patient Disposition: Home Condition: Stable Prescriptions: New ibuprofen 400 mg tablet 400 mg PO Q8H PRN (Reason: Leg pain) Qty: 30 RF: 0 Continued cholecalciferol (vitamin D3) 25 mcg (1,000 unit) capsule 25 mcg PO DAILY@0800 RF: 0 acarbose 100 mg tablet 100 mg PO TID RF: 0 lisinopril 40 mg tablet 20 mg PO DAILY RF: 0 aspirin 81 mg tablet,delayed release (DR/EC) 81 mg PO DAILY@12 RF: 0 atorvastatin 80 mg tablet 40 mg PO DAILY RF: 0 Centrum Silver 0.4-300-250 mg-mcg-mcg tablet 1 tab PO DAILY RF: 0 insulin aspart U-100 [Novolog Flexpen U-100 Insulin] 100 unit/mL (3 mL) insulin pen 5 unit SUBCUT TID RF: 0 insulin glargine 100 unit/mL (3 mL) insulin pen 35 - 45 unit SUBCUT DAILY@22 RF: 0 (DME) Sole supports Qty: 1 RF: 0 (DME) Custom orthotics See Rx Instructions .Route .MEDSUPPLY Qty: 1 RF: 0 Eliquis 5 mg Tablet 2.5 mg PO BID@0900,2100 Qty: 30 RF: 1 cetirizine 10 mg Tablet 10 mg PO DAILY RF: 0 isosorbide mononitrate 30 mg Tablet Extended Release 24 Hr 30 mg PO DAILY@0800 RF: 0 clopidogrel 75 mg Tablet 75 mg PO DAILY RF: 0 polyethylene glycol 3350 17 gram/dose Powder 17 g PO DAILY RF: 0 fluticasone propionate 50 mcg/actuation [place],Suspension 1 spray INTRANASAL DAILY PRN (Reason: Allergy Symptoms) RF: 0 olodaterol 2.5 mcg/actuation Mist 2 inh INHALATION DAILY@0800 RF: 0 cilostazol 50 mg Tablet 25 mg PO BID RF: 0 Tylenol Extra Strength 500 mg Tablet 1,000 mg PO PRN RF: 0 hydrochlorothiazide 25 mg Tablet 25 mg PO DAILY RF: 0 Held metformin 850 mg tablet 850 mg PO TID RF: 0 Hold Instructions: Resume on 09/12/20. No Action pantoprazole 40 mg tablet,delayed release (DR/EC) 40 mg PO DAILY RF: 0 Discharge Orders: Discharge Order (Routine); Ordered 09/23/20 Ordered By: Cornell Hoover Referrals: Cornell Hoover M.D [Physician] - 4-7 days (YOU HAVE A FOLLOW UP APPOINTMENT WITH DR. HOOVER ON MondaySeptember AT 345. IF YOU HAVE ANY QUESTIONS OR NEED TO RESCHEDULE PLEASE CALL [phone]. ) Discharge Diet: Diabetic Discharge Activity: Increase activity as tolerated Patient Instructions: Ibuprofen (By mouth), Peripheral Vascular Angioplasty (DC), Post Angiogram Home Care Instructions Activity Restrictions/Additional Instructions: Please do not lift more than 5 pounds of weight over the next 5 days ER warning symptoms given. If have loss of sensation of the right lower extremity, loss of movement, excruciating pain, or develop cold leg, to come to ER. Attestations Medical Necessity Statement*: Care not expected to cross 2 midnights. Time Spent in Patient Care*: greater than 30 min Quality Metrics Clinical Quality Measures: During this hospital stay, did patient experience: None Coding Level of Care Code Acute Cream Ripener for Carmen Rosas
[2020-09-23 13:44] VITALS: BP 121/64; PULSE 93; RESP 22; TEMP 37.2; O2SAT 96
--- NOTE | 2020-09-23 14:53 | PC.NURSE ---
Pt discharged home. Port flushed with heparin and access removed. Pts discharge instructions given along with prescriptions and follow up appointments. Pt had no c/o pain or discomfort at the time of discharge. Pt transferred out via wheelchair accompanied by staff.
== END 2020-09-23 14:40 | disposition home or self-care (01) ==
LOC: CCL 09:11 → CSU 12:31
PROVIDERS: PCP Family Medicine; Visit Provider Internal Medicine
DX: I70.201 Unspecified atherosclerosis of native arteries of extremities, right leg (principal); I25.10 Atherosclerotic heart disease of native coronary artery without angina pectoris; Z79.82 Long term (current) use of aspirin; E11.42 Type 2 diabetes mellitus with diabetic polyneuropathy; Z85.51 Personal history of malignant neoplasm of bladder; Z87.891 Personal history of nicotine dependence
CPT/HCPCS: 36415; 36416; 37225; 80048; 82962; 85025; 85730; 93926; 96372; C1724; C1725; C1760; C1769; C1887; C1894; C2623; J1642; J1644; J1815; J2250; J3010; J3490; J7030; Q0163; Q9967

== ENCOUNTER 2020-09-28 13:09 | Inpatient (IN) | payer OTHER, MEDICARE, SELFPAY ==
[2020-09-28 13:29] VITALS: BP 116/48; PULSE 90; RESP 18; TEMP 36.4; O2SAT 99; BMI 26.8
--- NOTE | 2020-09-28 13:52 | CTR_ITS ---
PROCEDURE INFORMATION: Exam: CTA Angiogram of the Abdominal Aorta and Bilateral Lower Extremities (Run-off) With IV Contrast Exam date and time: 09/28/2020 3:19 PM Age: 74 years old Clinical indication: Other: Pad, right leg pain and swelling; Prior surgery; Surgery type: Stents; Patient HX: Lung cancer TECHNIQUE: Imaging protocol: CT angiogram of the abdominal aorta, pelvis and bilateral lower extremities with IV iodinated contrast. 3D rendering (Not supervised by radiologist): MIP and/or 3D reconstructed images were created by the technologist. Radiation optimization: All CT scans at this facility use at least one of these dose optimization techniques: automated exposure control; mA and/or kV adjustment per patient size (includes targeted exams where dose is matched to clinical indication); or iterative reconstruction. Contrast material: OMNI 350; Contrast volume: 95 ml; Contrast route: INTRAVENOUS (IV); COMPARISON: CT abdomen pelvis w con* [id number] 11/26/2019 1:37 PM RADIATION DOSE METRICS: Total DLP (mGy-cm): 1631.03 FINDINGS: Aorta: Large volume of circumferential atherosclerotic wall plaque throughout abdominal aorta. Negative for aneurysm. Negative for dissection. Celiac trunk and mesenteric arteries: Mild stenosis of the celiac artery origin less than 50%. Very mild stenosis of the SMA origin less than 50%. Mild to moderate stenosis of the DIOGENES origin without occlusion. Renal arteries: No occlusion or significant stenosis. Right iliac arteries: Large atherosclerotic plaque volume of the right iliac arteries. There is a stent in the right common iliac artery which is patent. Stenosis in the artery less than 50%. Right femoral/popliteal arteries: Large mostly calcified plaque volume in the right common femoral artery with short segment of moderate stenosis distally estimated 50-69%. Extensive mostly calcified plaque throughout the right superficial femoral artery. Scattered areas of mild stenosis less than 50% with a few short segment areas of moderate stenosis estimated 50-69%. There is likely a segmental area of occlusion in the right popliteal artery. Right infrapopliteal arteries: Occlusion or very severe stenosis of the distal tibioperoneal arterial trunk. Extensive calcified plaque at the origins of the tibioperoneal runoff arteries. Right peroneal artery is significantly diseased at the origin, however otherwise patent into the foot with no significant stenosis distally. Long segment occlusion of the right posterior tibial artery distally. Reconstitution of flow in the plantar arch arteries from collaterals. Right anterior tibial artery is severely diseased diffusely. Segmental areas of high-grade stenosis alternating with short segment occlusions are noted diffusely. Reconstitution of the dorsalis pedis artery present. Left iliac arteries: Large atherosclerotic plaque volume throughout the left iliac arteries. There may be a short segment of moderate severity stenosis in the proximal common iliac artery estimated 50-69%. Left external iliac artery is unremarkable with no significant finding. Left femoral/popliteal arteries: Moderate atherosclerotic plaque volume in the left common femoral artery with mild stenosis less than 50%. Diffuse mostly calcified plaque throughout the left superficial femoral artery. Areas of mild to moderate stenosis are noted proximally but there is an area of severe stenosis or possibly short segment total occlusion distally. Very large, severe mostly calcified plaque volume throughout the left popliteal artery. Areas of severe stenosis are present. Left infrapopliteal arteries: The left distal tibioperoneal arterial trunk is highly diseased and severely stenotic. Origin of the left anterior tibial artery is patent. Large calcified plaque volume throughout the artery otherwise with areas of beaded stenosis alternating with areas of total occlusion distally. Reconstitution of flow in the dorsalis pedis artery. Origin of the peroneal artery is mild to moderately stenotic but the artery is otherwise patent and fairly robust throughout the leg. Left posterior tibial artery is patent but highly diseased at the origin. There is abrupt occlusion with long segment occlusion through the mid and distal portions. Minimal visualization of plantar arch arteries. Pleural space: Small volume right pleural effusion. Liver: Tiny hypervascular focus in the subcapsular aspect of the lateral right inferior liver. There may be a couple of additional small hypervascular foci in near the hepatic dome area. No liver enlargement. Gallbladder and bile ducts: Unremarkable. No calcified stones. No ductal dilation. Pancreas: Unremarkable. No mass. No ductal dilation. Spleen: Granulomas in the spleen without splenomegaly. Small hypervascular rounded focus in the subcapsular area of the superior spleen measures 6 mm and is otherwise nonspecific. Adrenals: Normal. No mass. Kidneys and ureters: Normal. No mass. Stomach and bowel: Unremarkable. No obstruction. No mucosal thickening. Appendix: No evidence of appendicitis. Bladder: Unremarkable. No mass. Reproductive: Mild prostate gland enlargement. Intraperitoneal space: Unremarkable. No free air. No significant fluid collection. Lymph nodes: No lymphadenopathy. Bones/joints: No acute fracture. No dislocation. Soft tissues: Unremarkable. CT/CT angio abd aorta runof [id number] IMPRESSION: Severe, relatively diffuse bilateral lower extremity peripheral arterial occlusive disease changes are identified. Details as above. Radiation Dose CTDIVOL = (mGy): DLP = 1631.03 (mGy-cm)
--- NOTE | 2020-09-28 14:14 | W.ED.EXTPRO ---
HPI - Extremity Problem General: Chief complaint: Extremity Injury, Lower Stated complaint: LEG ISSUES Time Seen by Provider: 09/28/20 13:28 Source: patient, family () and old records reviewed Mode of arrival: ambulatory Limitations: no limitations History of Present Illness: HPI Narrative: Patient is a 74-year-old male with a history of peripheral artery disease who had peripheral vascular angioplasty done about a week ago. He has had continued pain in the right lower extremity and swelling since the surgery. He saw the residential energy auditor who performed the procedure today and he was concerned about the swelling on the patient so he sent him here to obtain a CTA of his right lower extremity. MD Complaint: extremity pain and extremity swelling Onset (ago): week(s) (1) Pain Consistency: constant Location: right and lower extremity Quality: sharp and constant Radiation: none Review of Systems General: Reports: 10 or more systems reviewed and unremarkable except in HPI and below PFSH ED PFSH: Medical History Bladder cancer Lung nodule PVD (peripheral vascular disease) Type 2 diabetes mellitus with diabetic polyneuropathy Surgical History H/O colonoscopy H/O esophagogastroduodenoscopy (04/01/20) H/O heart artery stent History of bladder surgery History of bronchoscopy History of surgical removal of pilonidal cyst Port-A-Cath in place (04/01/20) Family History Other CAD (coronary artery disease) Cancer Diabetes Hyperlipidemia Hypertension Lung disease Denies family history of Clotting disorder Dementia Psychiatric illness Chronic kidney disease (CKD) Suicide Anesthesia complication Bleeding disorder Family history of premature coronary artery disease Stroke Social History Smoking and tobacco status: former smoker Quit status (tobacco): has quit using tobacco Year quit tobacco: 06-17 PPD x 45 Years Alcohol intake: never Lives independently: Yes Household members: spouse Marital status: service: Yes Current occupational status: retired History of recent travel: No Current gender identity: Male Physical Exam Const: COMMON NORMALS: no acute distress, average body habitus, patient oriented x3, no limitations, healthy appearing, alert and well nourished Neck/C-Spine: COMMON NORMALS: no meningeal signs and no JVD Resp: COMMON NORMALS: normal respiratory effort, No retractions, No use of accessory muscles, clear to auscultation bilaterally and percussion normal AUSCULTATION: clear to auscultation bilaterally PERCUSSION: percussion normal Cardio: COMMON NORMALS: no JVD, regular rate, regular rhythm, S1 normal heart sound present, S2 normal heart sound present, No gallops present (Cardio), No clicks present (Cardio), No murmurs present (Cardio), No rub (Cardio) and Peripheral pulses 2+ throughout RATE: regular rate RHYTHM: regular rhythm HEART SOUNDS: S1 normal heart sound present and S2 normal heart sound present PERIPHERAL PULSES: Peripheral pulses 2+ throughout GI: COMMON NORMALS: Normal to inspection, nondistended, normoactive bowel sounds present, Soft to palpation, non-tender, No hepatosplenomegaly present, no masses and no bruits PALPATION: Yes Soft to palpation and Yes No hepatosplenomegaly present Extremity: COMMON NORMALS: normal to inspection, full ROM and capillary refill normal GENERAL: Yes calf tenderness RIGHT LOWER EXTREMITY: Yes lower leg Right lower leg: Yes inspection (swollen when compared to the left), Yes palpation (tender to palpation, calf tenderness) and Yes neurovascular exam (intact) Neuro: COMMON NORMALS: patient oriented x3 SENSORIUM/ORIENTATION: Yes alert MENINGEAL SIGNS: Yes no meningeal signs Skin: COMMON NORMALS: no rashes or lesions noted, no wounds, turgor normal, no jaundice, no petechiae and no mottling GENERAL SKIN EXAM: no rashes or lesions noted and turgor normal Course Reevaluation(s): Reevaluation #1: Discussed his lab and imaging findings with him as well as my conversation with Dr. Cedillo. He also mentioned that Dr. Cedillo had spoken to him. Advised that he will need to be admitted to the hospital and he voiced understanding and is in agreement with the plan. Time: 18:00 Consultations: Consultation #1: Discussed the patient with Dr. Hoover, residential energy auditor. He was performing the procedure and after his procedure he came down to see the patient. He evaluated the patient and looked at his imaging and advised that the patient be admitted to his service for further evaluation and management. Time: 17:55 Vital Signs: Vital signs: Vital Signs Temperature 98.8 F 09/28/20 19:56 Pulse Rate 95 09/28/20 19:56 Respiratory Rate 17 09/28/20 19:56 Blood Pressure 123/78 09/28/20 19:56 Pulse Oximetry 96 09/28/20 19:56 MDM - Extremity (Nontraumatic) MDM Narrative: Medical decision making narrative: 74-year-old male who had a recent angioplasty of his right lower extremity arteries and has had increasing leg swelling, cough swelling and tenderness since then. Evaluation in the emergency department today shows he still has extensive peripheral artery disease with a few arteries occluded. No evidence of an ischemic limb that needs emergent intervention. He is admitted to the hospital for further evaluation and management. Medical Records: Attestation: I reviewed the patient's medical records. Lab Data: Attestation: I reviewed the patient's lab results. Labs: Lab Results 09/28/20 09/28/20 Range/Units 14:22 14:22 WBC 7.7 (4.0-10.0) 10^3/ uL RBC 3.27 L (4.1-5.3) 10^6/u L Hgb 9.6 L (11.7-16.6) g/dL Hct 30.0 L (42.0-52.0) % MCV 91.7 (80-94) fL MCH 29.4 (28.0-34.0) pg MCHC 32.0 (30.0-36.0) g/dL RDW 14.1 (12.1-15.1) % Plt Count 333 (130-400) 10^3/c mm MPV 8.1 (7.4-10.4) fL Neut % (Auto) 69.2 % Lymph % (Auto) 11.4 % Bond % (Auto) 10.6 % Eos % (Auto) 7.7 % Baso % (Auto) 0.6 % Neut # (Auto) 5.33 (1.8-7.7) 10^3/u L Lymph # (Auto) 0.9 (0.8-4.8) 10^3/u L Bond # (Auto) 0.8 (0.2-0.9) 10^3/u L Eos # (Auto) 0.6 (0.0-0.8) 10^3/u L Baso # (Auto) 0.1 (0.0-0.1) 10^3/u L Nucleated RBC % (a uto) 0 % Nucleated RBCs # 0.0 /100WBC Sodium 130 L (136-145) mmol/L Potassium 4.8 (3.5-5.1) mmol/L Chloride 94 L (98-107) mmol/L Carbon Dioxide 26 (22-29) mmol/L Anion Gap 14.8 (5-19) BUN 6 L (8-23) mg/dL Creatinine 0.5 L (0.7-1.2) mg/dL GFR Calculation Not Reportable Glucose 180 H (65-115) mg/dL Calculated Osmolal ity 272 L (285-295) mOsm/k g Calcium 9.2 (8.5-10.5) mg/dL Total Bilirubin 0.2 (0.15-1.2) mg/dL AST 17 (0-40) U/L ALT 20 (0-41) U/L Alkaline Phosphata se 76 (40-130) IU/L Total Protein 6.8 (6.6-8.7) g/dL Albumin 3.9 (3.5-5.2) g/dL Globulin 2.9 (1.3-4.6) g/dL Imaging Data^: US Vascular: Attestation: I personally reviewed and interpreted this imaging study as follows: Radiologist's impression: [address] [id number] ReportSigned Patient: Marbin FunezUnit #: [id number]: 5Acct#:[id number]/Sex: 74 / MADM Date: 09/28/20Loc: [facility]/Bed:Attending Dr: Ordering Provider/Ordering MD: Napoleon Alonzo MD, [facility] [place] Date of Service: 09/28/20 Procedure(s): [place] [address] Accession Number(s): [id number] Report Number: [id number] Marbin Funez Age: 74 Gender: M : 1945 Exam Date: 09/28/2020 16:00 Ordering Phys: Napoleon Alonzo MD [facility] [place] Technologist: Dneia Gonzáles Exam Location: [facility] [place] Indication: RLE pain and swelling, calf HISTORY: lower extremity arterial bypass with increase in swelling and pain in right calf PROCEDURES: On the left side, the common femoral, superficial femoral, profunda femoral, popliteal, posterior tibial, greater saphenous veins, and the peroneal trunk were identified and interrogated in the standard fashion. These veins were found to be easily compressible with spontaneous blood flow. No evidence of insufficiency or thrombus noted. On the right side, the common femoral, superficial femoral, profunda femoral, popliteal, posterior tibial, greater saphenous veins and the peroneal trunk were identified and interrogated in the standard fashion. FINDINGS: No RLE DVT noted at this time. CONCLUSIONS No evidence of right lower extremity DVT. Asad Olson MD (Electronically Signed) Final Date: 28 Sep 2020 17:[address]: Attestation: I personally reviewed and interpreted this imaging study as follows: Radiologist's impression: [address] [address]YH Scan ReportSigned Patient: Marbin Funez #: [id number]: [id number]#:[id number]/Sex: 74 / MADM Date: 09/28/20Loc: [facility]/Bed:Attending Dr: Ordering Provider/Ordering MD: Napoleon Alnozo MD, [facility] [place] Date of Service: 09/28/20 Procedure(s): CT angio abd aorta runof 92374 Accession Number(s): [id number] Report Number: [id number] PROCEDURE INFORMATION: Exam: CTA Angiogram of the Abdominal Aorta and Bilateral Lower Extremities (Run-off) With IV Contrast Exam date and time: 09/28/2020 3:19 PM Age: 74 years old Clinical indication: Other: Pad, right leg pain and swelling; Prior surgery; Surgery type: Stents; Patient HX: Lung cancer TECHNIQUE: Imaging protocol: CT angiogram of the abdominal aorta, pelvis and bilateral lower extremities with IV iodinated contrast. 3D rendering (Not supervised by radiologist): MIP and/or 3D reconstructed images were created by the technologist. Radiation optimization: All CT scans at this facility use at least one of these dose optimization techniques: automated exposure control; mA and/or kV adjustment per patient size (includes targeted exams where dose is matched to clinical indication); or iterative reconstruction. Contrast material: OMNI 350; Contrast volume: 95 ml; Contrast route: INTRAVENOUS (IV); COMPARISON: CT abdomen pelvis w con* [id number] 11/26/2019 1:37 PM RADIATION DOSE METRICS: Total DLP (mGy-cm): 1631.03 FINDINGS: Aorta: Large volume of circumferential atherosclerotic wall plaque throughout abdominal aorta. Negative for aneurysm. Negative for dissection. Celiac trunk and mesenteric arteries: Mild stenosis of the celiac artery origin less than 50%. Very mild stenosis of the SMA origin less than 50%. Mild to moderate stenosis of the DIOGENES origin without occlusion. Renal arteries: No occlusion or significant stenosis. Right iliac arteries: Large atherosclerotic plaque volume of the right iliac arteries. There is a stent in the right common iliac artery which is patent. Stenosis in the artery less than 50%. Right femoral/popliteal arteries: Large mostly calcified plaque volume in the right common femoral artery with short segment of moderate stenosis distally estimated 50-69%. Extensive mostly calcified plaque throughout the right superficial femoral artery. Scattered areas of mild stenosis less than 50% with a few short segment areas of moderate stenosis estimated 50-69%. There is likely a segmental area of occlusion in the right popliteal artery. Right infrapopliteal arteries: Occlusion or very severe stenosis of the distal tibioperoneal arterial trunk. Extensive calcified plaque at the origins of the tibioperoneal runoff arteries. Right peroneal artery is significantly diseased at the origin, however otherwise patent into the foot with no significant stenosis distally. Long segment occlusion of the right posterior tibial artery distally. Reconstitution of flow in the plantar arch arteries from collaterals. Right anterior tibial artery is severely diseased diffusely. Segmental areas of high-grade stenosis alternating with short segment occlusions are noted diffusely. Reconstitution of the dorsalis pedis artery present. Left iliac arteries: Large atherosclerotic plaque volume throughout the left iliac arteries. There may be a short segment of moderate severity stenosis in the proximal common iliac artery estimated 50-69%. Left external iliac artery is unremarkable with no significant finding. Left femoral/popliteal arteries: Moderate atherosclerotic plaque volume in the left common femoral artery with mild stenosis less than 50%. Diffuse mostly calcified plaque throughout the left superficial femoral artery. Areas of mild to moderate stenosis are noted proximally but there is an area of severe stenosis or possibly short segment total occlusion distally. Very large, severe mostly calcified plaque volume throughout the left popliteal artery. Areas of severe stenosis are present. Left infrapopliteal arteries: The left distal tibioperoneal arterial trunk is highly diseased and severely stenotic. Origin of the left anterior tibial artery is patent. Large calcified plaque volume throughout the artery otherwise with areas of beaded stenosis alternating with areas of total occlusion distally. Reconstitution of flow in the dorsalis pedis artery. Origin of the peroneal artery is mild to moderately stenotic but the artery is otherwise patent and fairly robust throughout the leg. Left posterior tibial artery is patent but highly diseased at the origin. There is abrupt occlusion with long segment occlusion through the mid and distal portions. Minimal visualization of plantar arch arteries. Pleural space: Small volume right pleural effusion. Liver: Tiny hypervascular focus in the subcapsular aspect of the lateral right inferior liver. There may be a couple of additional small hypervascular foci in near the hepatic dome area. No liver enlargement. Gallbladder and bile ducts: Unremarkable. No calcified stones. No ductal dilation. Pancreas: Unremarkable. No mass. No ductal dilation. Spleen: Granulomas in the spleen without splenomegaly. Small hypervascular rounded focus in the subcapsular area of the superior spleen measures 6 mm and is otherwise nonspecific. Adrenals: Normal. No mass. Kidneys and ureters: Normal. No mass. Stomach and bowel: Unremarkable. No obstruction. No mucosal thickening. Appendix: No evidence of appendicitis. Bladder: Unremarkable. No mass. Reproductive: Mild prostate gland enlargement. Intraperitoneal space: Unremarkable. No free air. No significant fluid collection. Lymph nodes: No lymphadenopathy. Bones/joints: No acute fracture. No dislocation. Soft tissues: Unremarkable. CT/CT angio abd aorta runof [id number] IMPRESSION: Severe, relatively diffuse bilateral lower extremity peripheral arterial occlusive disease changes are identified. Details as above. Radiation Dose CTDIVOL = (mGy): DLP = 1631.03 (mGy-cm) Dictated By:Braulio ChuainSigned By:Harshil,KevinSigned Date/Time:09/28/20 1644DD/ 1642 Discharge Plan Discharge Patient Disposition: Admitted As Inpatient Admit Provider: Cornell Hoover Clinical Impression: Peripheral arterial occlusive disease, Post-op pain Condition: Stable Coding Level of Care Code ED Class A Lineman for Chg Fwd Exam Detailed
[2020-09-28 14:29] LABS: Basophils # 0.1 10^3/uL (0.0-0.1); Basophils % 0.6 %; Eosinophils # 0.6 10^3/uL (0.0-0.8); Eosinophils % 7.7 %; Hemoglobin 9.6 g/dL (11.7-16.6); Lymphocytes # 0.9 10^3/uL (0.8-4.8); Lymphocytes % 11.4 %; Mean Corpuscular Hemoglobin 29.4 pg (28.0-34.0); Mean Corpuscular Volume 91.7 fL (80-94); Mean Platelet Volume 8.1 fL (7.4-10.4); Monocytes # 0.8 10^3/uL (0.2-0.9); Monocytes % 10.6 %; Neutrophils # 5.33 10^3/uL (1.8-7.7); Neutrophils % 69.2 %; Nucleated Red Blood Cells % 0 %; Platelet Count 333 10^3/cmm (130-400); Red Blood Count 3.27 10^6/uL (4.1-5.3); Red Cell Distribution Width 14.1 % (12.1-15.1); White Blood Count 7.7 10^3/uL (4.0-10.0)
[2020-09-28 14:49] LABS: Alanine Aminotransferase 20 U/L (0-41); Albumin Level 3.9 g/dL (3.5-5.2); Alkaline Phosphatase 76 IU/L (40-130); Anion Gap 14.8 (5-19); Aspartate Amino Transferase 17 U/L (0-40); Blood Urea Nitrogen 6 mg/dL (8-23); Calcium 9.2 mg/dL (8.5-10.5); Carbon Dioxide 26 mmol/L (22-29); Chloride 94 mmol/L (98-107); Globulin 2.9 g/dL (1.3-4.6); Glucose 180 mg/dL (65-115); Osmolality Calculated 272 mOsm/kg (285-295); Potassium 4.8 mmol/L (3.5-5.1); Sodium 130 mmol/L (136-145); Total Bilirubin 0.2 mg/dL (0.15-1.2); Total Protein 6.8 g/dL (6.6-8.7)
--- NOTE | 2020-09-28 15:14 | USCV_ITS ---
Dee Dee Marbin Age: 74 Gender: M : 1945 Exam Date: 09/28/2020 16:00 Ordering Phys: Napoleon Alonzo MD [facility] [place] Technologist: Denia Gonzáles Exam Location: [facility] [place] Indication: RLE pain and swelling, calf HISTORY: lower extremity arterial bypass with increase in swelling and pain in right calf PROCEDURES: On the right side, the common femoral, superficial femoral, profunda femoral, popliteal, posterior tibial, greater saphenous veins and the peroneal trunk were identified and interrogated in the standard fashion. FINDINGS: No RLE DVT noted at this time. CONCLUSIONS No evidence of right lower extremity DVT. Asad Olson MD (Electronically Signed) Final Date: 28 Sep 2020 17:07 Amended: 01 Oct 2020 11:47 C
[2020-09-28] MEDS: iohexol 350 mg/mL 100 mL Btl IV (15:45)
[2020-09-28 17:09] VITALS: RESP 18; O2SAT 98
[2020-09-28] MEDS: morphine 4 mg/mL SDV 1 mL IVP (17:09)
[2020-09-28] MEDS: ondansetron 2 mg/ML SDV 2 mL 4 MG IVP (17:09)
[2020-09-28 17:25] VITALS: BP 119/67; RESP 17; O2SAT 97
--- NOTE | 2020-09-28 17:37 | PC.NURSE ---
pt requests food. pt reports that he is a diabetic. Cheri SORTO approves of food and drink. Food and drink provided to the pt.
--- NOTE | 2020-09-28 18:45 | P.HP_ITS ---
Providers/Chief Complaint Admitting Physician: Cornell Hoover M.D Primary Care Provider: Shavonne Biswas MD Chief Complaint: LEG ISSUES History of Present Illness Marbin Funez is a 74 year old male with pmh of diabetes, CAD with prior LAD stent last year and right iliac stenting who had critical limb ischemia of the right lower extremity and underwent revascularization with orbital arthrectomy and balloon angioplasty. Patient had developed lower extremity swelling post procedure. Today he presented to clinic for follow-up. Lower extremity swelling had worsened and patient has been having significant pain on walking. He says at times he wakes up from sleep also if he moves the leg too much. On examination his calf area is tender. There is swelling around the ankle also. His sensation in the foot is intact. He can move foot and lower extremities. Given his significant lower extremity swelling and pain, we decided to send him to the emergency room and get a CTA. Before the procedure he only had single-vessel runoff with a patent peroneal artery. On the CTA there is still patent however has significant disease. Popliteal artery has possible area of occlusion. Review of Systems General: Reports: 10 or more systems reviewed and unremarkable except in HPI and below Card: Reports: edema; Denies: chest pain or palpitations Medications/Allergies Home Medications Medication Instructions Recorded Confirmed Last Taken Type Sole supports #1 ea 09/18/19 09/28/20 Unknown Rx acarbose 100 mg tablet 100 mg PO TID@0730,1200,1800 09/18/19 09/28/20 09/28/20 History aspirin 81 mg tablet,delayed 81 mg PO DAILY@12 09/18/19 09/28/20 09/27/20 History release atorvastatin 80 mg tablet 40 mg PO DAILY@1800 09/18/19 09/28/20 09/27/20 History cholecalciferol (vitamin D3) 25 25 mcg PO DAILY@0730 09/18/19 09/28/20 09/28/20 History mcg (1,000 unit) capsule insulin aspart U-100 100 unit/mL 5 unit SUBCUT TID 09/18/19 09/28/20 09/28/20 History (3 mL) subcutaneous pen insulin glargine 100 unit/mL (3 35 - 45 unit SUBCUT DAILY@22 09/18/19 09/28/20 09/08/20 18:00 History mL) subcutaneous pen lisinopril 40 mg tablet 20 mg PO DAILY@0730 09/18/19 09/28/20 09/28/20 History metformin 850 mg tablet 850 mg PO TID@0730,1200,1800 09/18/19 09/28/20 09/28/20 History cxowgxhs-mmh-mojlt acid 0.4 1 tab PO DAILY@0730 09/18/19 09/28/20 09/28/20 History mg-lycopene 300 mcg-lutein 250 mcg tablet Custom orthotics #1 ea 11/20/19 09/28/20 Unknown Rx cetirizine 10 mg PO DAILY 08/11/20 09/28/20 09/08/20 08:00 History clopidogrel 75 mg PO DAILY 08/11/20 09/28/20 09/08/20 08:00 History fluticasone propionate 1 spray INTRANASAL DAILY PRN 08/11/20 09/28/20 09/08/20 0 8:00 History isosorbide mononitrate 30 mg PO DAILY@0800 08/11/20 09/28/20 09/21/20 07:30 History olodaterol 2 inh INHALATION DAILY@0800 08/11/20 09/28/20 09/28/20 History polyethylene glycol 3350 17 g PO DAILY 08/11/20 09/28/20 09/08/20 08:00 History acetaminophen [Tylenol Extra 1,000 mg PO PRN 09/23/20 09/28/20 09/28/20 History Strength] cilostazol 25 mg PO BID@0730,1800 09/23/20 09/28/20 09/28/20 History hydrochlorothiazide 25 mg PO DAILY@0730 09/23/20 09/28/20 09/28/20 History ibuprofen 400 mg PO Q8H PRN #30 tab 09/23/20 09/28/20 Unknown Rx Eliquis 2.5 mg PO BID@0730,1800 09/28/20 09/28/20 09/28/20 History Allergies Allergy/AdvReac Type Severity Reaction Status Date / Time No Known Allergies Allergy Verified 09/23/20 10:10 PFSH Acute PFSH: Medical History Bladder cancer Lung nodule PVD (peripheral vascular disease) Type 2 diabetes mellitus with diabetic polyneuropathy Surgical History H/O colonoscopy H/O esophagogastroduodenoscopy (04/01/20) H/O heart artery stent History of bladder surgery History of bronchoscopy History of surgical removal of pilonidal cyst Port-A-Cath in place (04/01/20) Family History Other CAD (coronary artery disease) Cancer Diabetes Hyperlipidemia Hypertension Lung disease Denies family history of Clotting disorder Dementia Psychiatric illness Chronic kidney disease (CKD) Suicide Anesthesia complication Bleeding disorder Family history of premature coronary artery disease Stroke Social History Smoking and tobacco status: former smoker Quit status (tobacco): has quit using tobacco Year quit tobacco: 06-17 PPD x 45 Years Alcohol intake: never Lives independently: Yes Household members: spouse Marital status: service: Yes Current occupational status: retired History of recent travel: No Current gender identity: Male Vitals/I&O/Wt Last Vital Signs Temp 97.6 F 09/28/20 13:29 Pulse 90 09/28/20 13:29 Resp 17 09/28/20 17:25 BP 119/67 09/28/20 17:25 Pulse Ox 97 09/28/20 17:25 Weight last 48 hrs Weight 187 lb Physical Exam Narrative: EXAM NARRATIVE: GENERAL: Patient is alert, awake and oriented x3. [] NECK: No jugular vein distension. [] HEENT: No cyanosis. No icterus. No pallor. [] HEART: Regular S1 and S2. No murmur, rub or gallop. [] LUNGS: Clear to auscultate bilaterally. [] ABDOMEN: Soft, nontender and nondistended. Positive bowel sounds. No guarding, rebound or tenderness. [] CENTRAL NERVOUS SYSTEM: Grossly nonfocal. [] EXTREMITIES: Right lower extremity has calf swelling and tenderness. Pulses are not palpable because of swelling. Data : 09/29/20 05:00 09/29/20 05:00 A&P Assessment and plan (1) Peripheral arterial occlusive disease: Status: Acute (2) Lower extremity edema: Status: Acute (3) Severe claudication: Status: Acute (4) Diabetic peripheral neuropathy associated with type 2 diabetes mellitus: Status: Acute Patient had successful revascularization of right SFA with balloon angioplasty and orbital atherectomy last week. He has been having significant swelling of the right lower extremity below the knee that has worsened over the last couple of days. He will also has significant swelling around the ankle area. We sent him from the office to ER to obtain a CTA. CTA reveals that he has single-vessel runoff over the peroneal artery that is patent. Severe disease below the knee that is unchanged from before. Possible area of occlusion in the popliteal artery. For edema we will initiate him on prednisone 40 mg daily. We will also start on IV Lasix. If with resolution or improvement of edema, the swelling and pain do not improve we will plan to perform repeat angiogram and possible intervention of the right lower extremity on Monday. Continue Eliquis, aspirin and Plavix. CBC and BMP in the morning. Attestations Medical Necessity Statement*: Care expected to cross 2 midnights. Patient has been having significant lower extremity edema and pain post intervention. Will need IV Lasix and prednisone. If pain and edema do not resolve, he will need a peripheral angiogram. Coding Level of Care Code Acute Parts Identifier for aCrmen Rosas Diagnoses Peripheral arterial occlusive disease I77.9 Lower extremity edema R60.0 Severe claudication I73.9 Diabetic peripheral neuropathy associated with type 2 diabetes mellitus E11.42
--- NOTE | 2020-09-28 19:12 | PC.NURSE ---
pt report called to Carlos RN in SBAR format.
[2020-09-28 19:56] VITALS: BP 123/78; PULSE 95; RESP 17; TEMP 37.1; O2SAT 96
[2020-09-28 20:24] LABS: Glucose Point of Care 242 mg/dL (70-110)
[2020-09-28] MEDS: predniSONE 20 mg Tablet 40 MG PO (21:00)
[2020-09-28] MEDS: insulin glargine 100 units/1 mL 10 UNIT SUBCUT (21:01)
[2020-09-28 23:56] VITALS: BP 167/74; PULSE 98; RESP 16; TEMP 36.6; O2SAT 92
[2020-09-29] VITALS (7 sets, daily range): BP systolic 100–153; BP diastolic 58–81; PULSE 94–108; RESP 16–19; TEMP 36.2–36.8; O2SAT 93–98
[2020-09-29 06:26] LABS: Basophils % 0.3 %; Hematocrit 31.5 % (42.0-52.0); Lymphocytes # 0.6 10^3/uL (0.8-4.8); Mean Corpuscular HGB Conc 31.7 g/dL (30.0-36.0); Mean Corpuscular Hemoglobin 28.8 pg (28.0-34.0); Mean Corpuscular Volume 90.8 fL (80-94); Mean Platelet Volume 8.9 fL (7.4-10.4); Monocytes # 0.1 10^3/uL (0.2-0.9); Neutrophils # 5.86 10^3/uL (1.8-7.7); Neutrophils % 88.1 %; Nucleated Red Blood Cells % 0 %; Platelet Count 403 10^3/cmm (130-400); Red Blood Count 3.47 10^6/uL (4.1-5.3); Red Cell Distribution Width 14.1 % (12.1-15.1); White Blood Count 6.7 10^3/uL (4.0-10.0)
[2020-09-29] MEDS: apixaban 5 mg Tablet 2.5 MG PO ×2 (06:30→17:16)
[2020-09-29] MEDS: cholecalciferol (vitamin D3) 1,000 unit Tablet 1000 UNIT PO (06:30)
[2020-09-29] MEDS: lisinopril 20 mg Tablet PO (06:30)
[2020-09-29] MEDS: cilostazol 100 mg Tablet 25 MG PO ×2 (06:30→17:17)
[2020-09-29 06:31] LABS: Glucose Point of Care 263 mg/dL (70-110)
[2020-09-29 06:42] LABS: Anion Gap 13.9 (5-19); Blood Urea Nitrogen 7 mg/dL (8-23); Calcium 8.9 mg/dL (8.5-10.5); Carbon Dioxide 25 mmol/L (22-29); Chloride 95 mmol/L (98-107); Glucose 272 mg/dL (65-115); Osmolality Calculated 276 mOsm/kg (285-295); Potassium 4.9 mmol/L (3.5-5.1); Sodium 129 mmol/L (136-145)
[2020-09-29] MEDS: clopidogrel 75 mg Tablet PO (09:09)
[2020-09-29] MEDS: cetirizine 10 mg Tablet PO (09:09)
[2020-09-29] MEDS: predniSONE 20 mg Tablet 40 MG PO (09:10)
[2020-09-29] MEDS: FUROsemide 10 mg/mL SDV 4mL 40 MG IVP (09:14)
--- NOTE | 2020-09-29 09:32 | PC.CHAP ---
Pastoral Care Encounter/Spiritual Assessment Type of Contact [] Declined sheet music salesperson visit [] Patient/Family/Request visit [] Outpatient visit [] Follow-up visit [] Physician referral [] Code/Alert [x] Routine visit [] Staff referral [] Actively dying [] Patient sleeping [] Family support [] [x] Out of room [] Palliative care [] [] Receiving care in room [] Pre-surgical visit [] Trauma [] Long length of stay [] ICU visit [] Other: Relational/Emotional Strength [] Patient feels connected with others/family/visitors/staff [] Distress [] Loneliness/isolation [] Abandonment Spirituality of Patient [] Person of [place] [] Attends Moravian of their [place] [] Believes in Prayer [] Reads Bible or Buddhist materials [] There are Spiritual issues to be addressed Drill Sharpener Interventions [] Prayer [] Active listening [] Non-anxious presence [] Spiritual/emotional support [] Crisis/trauma care [] Spiritual counseling [] Bereavement support [] Provided bereavement packet [] Provided Bible/devotional materials [] Provided toy/stuffed animal, coloring book to patient or family member [] Provided Communion [] Anointing/[place] [] Salvation [x] Completed spiritual assessment [] Other: Impact on Illness or Injury [] Angry [] Fearful [] Anxious [] Often cries [] Exhaustion [] Unable to work [] Unable to attend sabianist [] Unable to walk/stand [] Unable to read [] Unable to drive [] Unable to eat/drink [] Unable to sleep [] Unable to be with family [] Patient intubated [] Other: Summary Time spent with patient
[2020-09-29] MEDS: acetaminophen 500 mg Tablet 1000 MG PO ×2 (10:42→15:57)
[2020-09-29 11:08] LABS: Glucose Point of Care 214 mg/dL (70-110)
--- NOTE | 2020-09-29 12:05 | P.PN_ITS ---
Subjective Subjective: Interval history: Patient is doing better. Denies chest pain. Still has leg pain on movement. His swelling has improved significantly after receiving prednisone Vitals/I&O/Wt Last Vital Signs Temp 97.1 F L 09/29/20 11:51 Pulse 99 09/29/20 11:51 Resp 19 H 09/29/20 11:51 BP 120/58 09/29/20 11:51 Pulse Ox 98 09/29/20 11:51 09/28/20 09/29/20 09/29/20 22:59 06:59 14:59 Intake Total 360 / 360 Output Total 500 / 500 1075 / 1575 Balance -500 / -500 -1075 / -1575 360 / 360 Weight last 48 hrs Weight 187 lb Physical Exam Narrative: EXAM NARRATIVE: GENERAL: Patient is alert, awake and oriented x3. [] NECK: No jugular vein distension. [] HEENT: No cyanosis. No icterus. No pallor. [] HEART: Regular S1 and S2. No murmur, rub or gallop. [] LUNGS: Clear to auscultate bilaterally. [] ABDOMEN: Soft, nontender and nondistended. Positive bowel sounds. No guarding, rebound or tenderness. [] CENTRAL NERVOUS SYSTEM: Grossly nonfocal. [] EXTREMITIES: Right lower extremity has calf swelling and tenderness. Pulses are not palpable because of swelling. Data : 09/29/20 05:00 09/29/20 05:00 A&P Assessment and plan (1) Peripheral arterial occlusive disease: Status: Acute (2) Lower extremity edema: Status: Acute (3) Severe claudication: Status: Acute (4) Diabetic peripheral neuropathy associated with type 2 diabetes mellitus: Status: Acute Patient had successful revascularization of right SFA with balloon angioplasty and orbital atherectomy last week. He has been having significant swelling of the right lower extremity below the knee that has worsened over the last couple of days. He will also has significant swelling around the ankle area. We sent him from the office to ER to obtain a CTA. CTA reveals that he has single-vessel runoff over the peroneal artery that is patent. Severe disease below the knee that is unchanged from before. Possible area of occlusion in the popliteal artery. Lower extremity swelling has improved . If the swelling and pain do not improve we will plan to perform repeat angiogram and possible intervention of the right lower extremity tomorrow Continue Eliquis, aspirin and Plavix. CBC and BMP in the morning. Attestations Medical Necessity Statement*: Care expected to cross 2 midnights. Patient had recent peripheral intervention and he has been having significant pain and swelling. Possible repeat periphral angiogram tomorrow Coding Level of Care Code Acute Customer Care Specialist for Carmen Rosas Diagnoses Peripheral arterial occlusive disease I77.9 Lower extremity edema R60.0 Severe claudication I73.9 Diabetic peripheral neuropathy associated with type 2 diabetes mellitus E11.42
[2020-09-29] MEDS: aspirin 81 mg EC Tablet PO (12:15)
[2020-09-29 17:07] LABS: Glucose Point of Care 374 mg/dL (70-110)
[2020-09-29] MEDS: atorvastatin 40 mg Tablet PO (17:17)
[2020-09-29] MEDS: nitroglycerin 0.4 mg sublingual Tablet SUBLINGUAL (18:59)
[2020-09-29 20:27] LABS: Glucose Point of Care 355 mg/dL (70-110)
[2020-09-29] MEDS: insulin glargine 100 units/1 mL 10 UNIT SUBCUT (22:28)
[2020-09-30] VITALS (38 sets, daily range): BP systolic 91–180; BP diastolic 55–79; PULSE 81–105; RESP 3–34; TEMP 35.9–36.9; O2SAT 84–97
[2020-09-30 05:16] LABS: Basophils % 0.2 %; Eosinophils # 0.1 10^3/uL (0.0-0.8); Eosinophils % 0.8 %; Hematocrit 29.7 % (42.0-52.0); Hemoglobin 9.5 g/dL (11.7-16.6); Lymphocytes % 10.8 %; Mean Corpuscular Hemoglobin 28.9 pg (28.0-34.0); Mean Corpuscular Volume 90.3 fL (80-94); Mean Platelet Volume 8.6 fL (7.4-10.4); Monocytes # 1.1 10^3/uL (0.2-0.9); Monocytes % 11.5 %; Neutrophils # 7.29 10^3/uL (1.8-7.7); Neutrophils % 76.1 %; Nucleated Red Blood Cells % 0 %; Platelet Count 400 10^3/cmm (130-400); Red Blood Count 3.29 10^6/uL (4.1-5.3); Red Cell Distribution Width 14.4 % (12.1-15.1); White Blood Count 9.6 10^3/uL (4.0-10.0)
[2020-09-30 05:37] LABS: Anion Gap 12.4 (5-19); Blood Urea Nitrogen 13 mg/dL (8-23); Calcium 9.1 mg/dL (8.5-10.5); Carbon Dioxide 28 mmol/L (22-29); Chloride 95 mmol/L (98-107); Glucose 242 mg/dL (65-115); Osmolality Calculated 280 mOsm/kg (285-295); Potassium 4.4 mmol/L (3.5-5.1); Sodium 131 mmol/L (136-145)
[2020-09-30 06:34] LABS: Glucose Point of Care 249 mg/dL (70-110)
[2020-09-30] MEDS: acetaminophen 500 mg Tablet 1000 MG PO (10:05)
[2020-09-30] MEDS: cholecalciferol (vitamin D3) 1,000 unit Tablet 1000 UNIT PO (10:07)
[2020-09-30] MEDS: cetirizine 10 mg Tablet PO (10:11)
[2020-09-30] MEDS: hydroCHLOROthiazide 25 mg Tablet PO (10:11)
[2020-09-30] MEDS: lisinopril 20 mg Tablet PO (10:11)
[2020-09-30] MEDS: isosorbide mononitrate ER 30 mg Tablet PO (10:11)
[2020-09-30] MEDS: clopidogrel 75 mg Tablet PO (10:11)
[2020-09-30] MEDS: cilostazol 100 mg Tablet 25 MG PO (10:11)
[2020-09-30] MEDS: predniSONE 20 mg Tablet 40 MG PO (10:11)
[2020-09-30 11:30] LABS: Glucose Point of Care 253 mg/dL (70-110)
[2020-09-30] MEDS: morphine 4 mg/mL SDV 1 mL IVP (12:18)
--- NOTE | 2020-09-30 15:40 | XACV_ITS ---
Ht: 178 cm Wt: 85 kg BSA: 2.06 m2 Any Known Allergies: No known allergies Gender: Male : 1945 Exam Type: Invasive Peripheral Vascular Procedure(s): Procedure Description: Peripheral Cath Diagnostic Procedure Exam Priority: Routine Lower Extremity Diagnostic Findings Right common femoral artery: Patent Right SFA: Patent, calcified vessel. Radial artery: Has calcification. Distally has a communicating to be fistula that is large in size. Below the knee peroneal artery appears to be patent however has disease.. Conclusions Severe peripheral artery disease. Large sized AV fistula at the site of popliteal artery. This is likely related to the recent peripheral intervention from popliteal access. Recommendations Patient will need vascular surgery intervention for treatment of AV fistula. We will transfer him to a center with vascular surgery availability. Access Site Site: Left Femoral artery Sheath Size: 6 Fr Hemost... Method: Suture Hemost... Success: Successful Procedure Details Findings Procedure Consent Obtained. Admit Source: In Patient. Pre-Procedure Time Out. Identified patient by full name and date of as verbalized by the patient/guarantor. Does the consent match the physician's order: Yes. Accurate & Complete Informed Consent: Yes. Inpatient/Outpatient History & Physical on Chart: Yes. If H&P is completed, is and addenduem needed: Yes; If yes, is the addendum complete: N/A. Visualize and Verify Site with Patient/Guarantor: N/A. Relevant Radiology Images available: N/A. Pre-op teaching completed and patient verbalized understanding. The risks, benefits, and alternatives of sedation and/or procedure were discussed by physician. The patient agrees to continue. Procedure started. Correct patient, site and procedure confirmed by cath team. PERRLA. Strong, equal hand coke inspector bilaterally. Lungs clear x 5 lobes. IV Site on Arrival: 20 gauge in the left anticubital. Oxygen started at 2liters/min via nasal canula. bilateral groins was prepped with chloroprep then draped in the usual sterile fashion. Baseline sample Acquired. HR: 102 BPM. Physician notified. Physician arrived. Physician scrubbed in. Immediate Pre-Procedure Time Out. Correct Patient: Yes; Correct Procedure: Yes; Correct Site: Yes; Correct Patient Position: Yes; Correct Supplies: Yes; Dried Flammable Prep: Yes; Blood Products Available: NA;. Lidocaine 1% infiltrated to the left groin. Arterial access obtained with micropuncture set. A 5FrFr UF catheter in over wire. Catheter removed over the glide wire. wire out. runoff right light performed 10mL/sec for a total of 30mL. Side port of sheath attached to Normal Saline flush at KVO to maintain patency. Dr. Ordonez notified. Dr. Ordonez arrived looking at pictures at this time. Catheter out. Sheath(s) sutured into position with 2-0 silk and sterile 4x4's and Op-site applied over the site. No oozing or signs and symptoms of hematoma noted. Arterial sheath flushed and connected to tranducer and pressure bag with heparinized saline. Post Procedure: Pulses reassessed and unchanged. PERRLA. Strong, equal hand coke inspector bilaterally. No VTE prophylaxis required. Medication's Wasted: Lidocaine 1% = 10 mL. Medication's Wasted: Other = versed 1 mg. Medication's Wasted: Other = fentanyl 50 mg. Total IV fluids: 47 mL. Contrast type used: Visipaque 320 mgI/mL, 500 mL bottle. Contrast Material : Visipaque 56 ml. Post-op diagnosis: severe PAD, AV fistula around popliteal. Complications: none. Estimated blood loss: 5mL-10mL. Procedure completed. Patient transferred by bed to 1st floor. A Suture was successful obtaining hemostatsis at the Left Femoral artery insertion site. Vital chart was stopped. Procedure Medications Start: 4:12 PM Stop: 4:12 PM Medication: Versed Amount: 1 mg Route: I.V. Start: 4:12 PM Stop: 4:12 PM Medication: Fentanyl Amount: 50 mcg Route: I.V. I, the attending physician, have reviewed and verified all procedure medications. Yes, all medications given per verbal order Report Signatures Finalized by Cornell Hoover MD on 10/15/2020 07:49 PM
--- NOTE | 2020-09-30 15:58 | W.PM.OPSUD ---
Surgery/Procedure H&P Update DATE OF PROCEDURE: September 30, 2020 DATE H&P PERFORMED: 09/28/20 H&P UPDATE INFORMATION: I have reviewed H&P completed within last 30 days, I have examined patient prior to procedure and No changes to prior documentation CHANGES TO PREVIOUS DOCUMENTATION: Patient has severe lower extremity pain and swelling since the peripheral intervention last week. Intact sensation and movement of lower extremity. Plan for peripheral angiogram to assess thrombus formation in vessels and possible peripheral intervention as CTA showing possible popliteal occlusion. PREOP DIAGNOSIS: Critical limb ischemia PRIMARY INDICATION FOR PROCEDURE: Critical limb ischemia PLANNED PROCEDURE: Peripheral angiogram with possible peripheral intervention PATIENT REASSESSED PRIOR TO SEDATION, WITH NO CHANGE NOTED: Yes PHYSICAL EXAM: alert, oriented x 3 and clear to auscultation bilaterally AIRWAY EVAL/ANESTHESIA PLAN: ASA III, Monitored Anesthesia, Local Anesthesia, Risks, benefits & alternatives of sedation and/or procedure discussed and Patient agrees to continue as planned
--- NOTE | 2020-09-30 16:05 | PM.PN ---
Subjective Subjective: Interval history: Patient is still having severe calf tenderness and pain on ambulation. Has swelling of the lower extremity. He underwent peripheral angiogram today that showed a large sized AV fistula at popliteal artery. Vitals/I&O/Wt Last Vital Signs Temp 96.7 F L 09/30/20 11:48 Pulse 94 09/30/20 11:48 Resp 14 09/30/20 12:18 BP 180/78 09/30/20 11:48 Pulse Ox 96 09/30/20 12:18 09/30/20 09/30/20 09/30/20 06:59 14:59 22:59 Output Total 600 / 600 Balance -600 / 360 Physical Exam Narrative: EXAM NARRATIVE: GENERAL: Patient is alert, awake and oriented x3. [] NECK: No jugular vein distension. [] HEENT: No cyanosis. No icterus. No pallor. [] HEART: Regular S1 and S2. No murmur, rub or gallop. [] LUNGS: Clear to auscultate bilaterally. [] ABDOMEN: Soft, nontender and nondistended. Positive bowel sounds. No guarding, rebound or tenderness. [] CENTRAL NERVOUS SYSTEM: Grossly nonfocal. [] EXTREMITIES: Right lower extremity has calf swelling and tenderness. Pulses are not palpable because of swelling. Data : 10/01/20 03:23 10/01/20 03:23 A&P Assessment and plan (1) Peripheral arterial occlusive disease: Status: Acute (2) Lower extremity edema: Status: Acute (3) Severe claudication: Status: Acute (4) Diabetic peripheral neuropathy associated with type 2 diabetes mellitus: Status: Acute (5) AV fistula: Status: Acute Patient had successful revascularization of right SFA with balloon angioplasty and orbital atherectomy last week. He has been having significant swelling of the right lower extremity below the knee. We performed a CTA initially that did not reveal the cause for patient's pain and swelling. Today he underwent peripheral angiogram that demonstrates a large sized AV fistula at the site of popliteal artery. We will discuss with vascular surgery team at [facility] in [place] as we do not have vascular surgery availability here and patient needs an urgent procedure. We will stop prednisone today. Continue aspirin and Plavix. Hold Eliquis for today. Further plan after discussion with vascular surgery team and [facility]. Attestations Medical Necessity Statement*: Care expected to cross 200s. Patient had presented with severe calf pain swelling. Found to have AV fistula. Will need vascular surgical procedure and will be sent to vascular surgery team at [facility] in [place]. Coding Level of Care Code Acute Advanced Practice Registered Nurse for Carmen Rosas Diagnoses Peripheral arterial occlusive disease I77.9 Lower extremity edema R60.0 Severe claudication I73.9 Diabetic peripheral neuropathy associated with type 2 diabetes mellitus E11.42 AV fistula I77.0
[2020-09-30] MEDS: sodium chloride 0.9% 1,000 ML 50 ML IV (19:00)
--- NOTE | 2020-09-30 20:02 | PC.NURSE ---
Patient educated not to get up without assistance and bedrest until 0000. Patient verbalized understanding.
[2020-09-30 20:14] LABS: Glucose Point of Care 401 mg/dL (70-110)
--- NOTE | 2020-09-30 21:08 | PC.NURSE ---
Dr. Arias notified of blood sugar of 401. Patient has no sliding scale at bedtime, only 10 units long acting. Ordered for moderate sliding scale at bedtime.
[2020-09-30 21:33] LABS: Glucose Point of Care 378 mg/dL (70-110)
[2020-09-30] MEDS: acetaminophen 325 mg Tablet 650 MG PO (22:03)
[2020-09-30] MEDS: insulin glargine 100 units/1 mL 10 UNIT SUBCUT (22:03)
--- NOTE | 2020-09-30 22:23 | PC.NURSE ---
Voicemail left to dietary for patient's request for breakfast.
--- NOTE | 2020-09-30 23:13 | PC.NURSE ---
Upon arriving on shift, NS running at 50 ml/hr.
[2020-10-01 00:19] VITALS: BP 119/62; PULSE 98; RESP 17; TEMP 36.6; O2SAT 94
--- NOTE | 2020-10-01 00:23 | PC.NURSE ---
Dr. Arias notified of right foot feeling colder than left foot and right foot having very faint pulse with doppler. Pulse to left foot is WNL with doppler. Patient has small area of purple discoloration to right ankle. Patient states purple discoloration has been there for two weeks and he also states his foot has been cold for two weeks. Patient is able to feel his foot and has cap refill WNL. Dr. Arias ordered for post-cath fluids at 75 ml/hr.
--- NOTE | 2020-10-01 00:37 | PC.NURSE ---
Patient ambulated with nurse to bathroom. Left groin site WNL. VSS.
[2020-10-01 03:35] VITALS: BP 123/71; PULSE 100; RESP 23; TEMP 36.6; O2SAT 93
[2020-10-01 03:40] LABS: Basophils % 0.2 %; Eosinophils % 0.1 %; Hemoglobin 8.8 g/dL (11.7-16.6); Lymphocytes # 1.1 10^3/uL (0.8-4.8); Lymphocytes % 12.5 %; Mean Corpuscular HGB Conc 31.4 g/dL (30.0-36.0); Mean Corpuscular Volume 92.4 fL (80-94); Mean Platelet Volume 8.4 fL (7.4-10.4); Monocytes % 11.1 %; Neutrophils # 6.88 10^3/uL (1.8-7.7); Neutrophils % 75.7 %; Nucleated Red Blood Cells % 0 %; Platelet Count 356 10^3/cmm (130-400); Red Blood Count 3.03 10^6/uL (4.1-5.3); Red Cell Distribution Width 14.6 % (12.1-15.1); White Blood Count 9.1 10^3/uL (4.0-10.0)
[2020-10-01 04:05] LABS: Anion Gap 13.3 (5-19); Blood Urea Nitrogen 16 mg/dL (8-23); Calcium 8.6 mg/dL (8.5-10.5); Carbon Dioxide 25 mmol/L (22-29); Chloride 96 mmol/L (98-107); Glucose 360 mg/dL (65-115); Osmolality Calculated 286 mOsm/kg (285-295); Potassium 4.3 mmol/L (3.5-5.1); Sodium 130 mmol/L (136-145)
[2020-10-01 05:40] VITALS: PULSE 101
[2020-10-01 07:05] LABS: Glucose Point of Care 291 mg/dL (70-110)
[2020-10-01 07:29] VITALS: BP 130/68; PULSE 94; RESP 21; TEMP 36.6; O2SAT 92
[2020-10-01] MEDS: isosorbide mononitrate ER 30 mg Tablet PO (07:33)
[2020-10-01] MEDS: cilostazol 100 mg Tablet 25 MG PO (07:33)
[2020-10-01] MEDS: hydroCHLOROthiazide 25 mg Tablet PO (07:33)
[2020-10-01] MEDS: lisinopril 20 mg Tablet PO (07:33)
[2020-10-01] MEDS: cholecalciferol (vitamin D3) 1,000 unit Tablet 1000 UNIT PO (07:34)
[2020-10-01] MEDS: acetaminophen 325 mg Tablet 650 MG PO (07:34)
--- NOTE | 2020-10-01 07:38 | PC.NURSE ---
please hold elijeris per Dr. Hoover
--- NOTE | 2020-10-01 07:58 | P.DS_ITS ---
Discharge Providers Date of Admission: 09/28/20 18:00 Date of Discharge: October 01, 2020 Attending Provider at Admission: Cornell Hoover M.D Attending Provider at Discharge: Cornell Hoover M.D Primary Care Provider: Shavonne Biswas MD Diagnoses at Discharge Discharge Diagnosis (1) Peripheral arterial occlusive disease: Status: Acute (2) Lower extremity edema: Status: Acute (3) Severe claudication: Status: Acute (4) Diabetic peripheral neuropathy associated with type 2 diabetes mellitus: Status: Acute (5) AV fistula: Status: Acute Reason for Visit Reason for Visit: LEG ISSUES Brief History: Severe right leg pain Hospital Course Hospital Course 74 year old male with pmh of diabetes, CAD with prior LAD stent last year and right iliac stenting who had critical limb ischemia of the right lower extremity and underwent revascularization with orbital arthrectomy and balloon angioplasty last week. Patient had developed lower extremity swelling post procedure. He presented to clinic for follow-up earlier this. Lower extremity swelling had worsened and patient has been having significant pain on walking. He says at times he wakes up from sleep also if he moves the leg too much. On examination his calf area is tender. There is swelling around the ankle also. His sensation in the foot is intact. He can move foot and lower extremities. No dopplerable pulses secondary to swelling. Given his significant lower extremity swelling and pain, we decided to send him to the emergency room and get a CTA. CTA did not reveal cause for swelling and tenderness. Patient was initially put on prednisone and swelling improved however he was having significant leg pain. We performed peripheral angiogram that shows a large sized AV fistula at popliteal artery site. Given we do not have vascular surgery availability, and patient needs an urgent procedure for AV fistula, we contacted vascular surgery team at [facility] in [place]. After discussion with patient, patient's family and Dr. Montalvo(vascular surgery at [place]) plan is to close the fistula urgently given patient's significant symptoms and possible compromise of blood flow. Plan is to discharge patient today from the hospital and will be admitted to [facility] today with possible procedure either today or tomorrow. Patient is stable at this time. Physical Exam Narrative: EXAM NARRATIVE: GENERAL: Patient is alert, awake and oriented x3. [] NECK: No jugular vein distension. [] HEENT: No cyanosis. No icterus. No pallor. [] HEART: Regular S1 and S2. No murmur, rub or gallop. [] LUNGS: Clear to auscultate bilaterally. [] ABDOMEN: Soft, nontender and nondistended. Positive bowel sounds. No guarding, rebound or tenderness. [] CENTRAL NERVOUS SYSTEM: Grossly nonfocal. [] EXTREMITIES: Right lower extremity has calf swelling and tenderness. Pulses are not palpable because of swelling. Discharge Data Data Completed and Pending: Completed Studies During Hospitalization Category Date Time Status CT angio abd aort a runof 97202 Urge nt Cat Scan 09/28/20 13:52 [place] [id number] Urgent Ultrasound 09/28/20 15:14 Completed Pending at discharge Category Date Time Status LICENSED INSURANCE AGENT request for service Routin e Exams 09/30/20 15:40 Taken Labs from last 24 hours 10/01/20 10/01/20 10/01/20 07:00 03:23 03:23 WBC 9.1 RBC 3.03 L Hgb 8.8 L Hct 28.0 L MCV 92.4 MCH 29.0 MCHC 31.4 RDW 14.6 Plt Count 356 MPV 8.4 Neut % (Auto) 75.7 Lymph % (Auto) 12.5 [place] % (Auto) 11.1 Eos % (Auto) 0.1 Baso % (Auto) 0.2 Neut # (Auto) 6.88 Lymph # (Auto) 1.1 [place] # (Auto) 1.0 H Eos # (Auto) 0.0 Baso # (Auto) 0.0 Nucleated RBC % (a uto) 0 Nucleated RBCs # 0.0 Sodium 130 L Potassium 4.3 Chloride 96 L Carbon Dioxide 25 Anion Gap 13.3 BUN 16 Creatinine 0.6 L GFR Calculation Not Reportable Glucose 360 H POC Glucose 291 H Calculated Osmolal ity 286 Calcium 8.6 09/30/20 09/30/20 09/30/20 21:29 19:58 11:26 WBC RBC Hgb Hct MCV MCH MCHC RDW Plt Count MPV Neut % (Auto) Lymph % (Auto) [place] % (Auto) Eos % (Auto) Baso % (Auto) Neut # (Auto) Lymph # (Auto) [place] # (Auto) Eos # (Auto) Baso # (Auto) Nucleated RBC % (a uto) Nucleated RBCs # Sodium Potassium Chloride Carbon Dioxide Anion Gap BUN Creatinine GFR Calculation Glucose POC Glucose 378 H 401 H 253 H Calculated Osmolal ity Calcium Vitals: Last Vital Signs Temp 97.9 F 10/01/20 07:29 Pulse 94 10/01/20 07:29 Resp 21 H 10/01/20 07:29 BP 130/68 10/01/20 07:29 Pulse Ox 92 10/01/20 07:29 Discharge Plan Discharge Patient Disposition: Home Condition: Stable Prescriptions: Continued cholecalciferol (vitamin D3) 25 mcg (1,000 unit) capsule 25 mcg PO DAILY@07 RF: 0 acarbose 100 mg tablet 100 mg PO TID@07,1199,1800 RF: 0 lisinopril 40 mg tablet 20 mg PO DAILY@07 RF: 0 aspirin 81 mg tablet,delayed release (DR/EC) 81 mg PO DAILY@12 RF: 0 atorvastatin 80 mg tablet 40 mg PO DAILY@1800 RF: 0 Centrum Silver 0.4-300-250 mg-mcg-mcg tablet 1 tab PO DAILY@0730 RF: 0 insulin aspart U-100 [Novolog Flexpen U-100 Insulin] 100 unit/mL (3 mL) insulin pen 5 unit SUBCUT TID RF: 0 insulin glargine 100 unit/mL (3 mL) insulin pen 35 - 45 unit SUBCUT DAILY@22 RF: 0 (DME) Sole supports Qty: 1 RF: 0 (DME) Custom orthotics See Rx Instructions .Route .MEDSUPPLY Qty: 1 RF: 0 cetirizine 10 mg Tablet 10 mg PO DAILY RF: 0 isosorbide mononitrate 30 mg Tablet Extended Release 24 Hr 30 mg PO DAILY@0800 RF: 0 clopidogrel 75 mg Tablet 75 mg PO DAILY RF: 0 polyethylene glycol 3350 17 gram/dose Powder 17 g PO DAILY RF: 0 fluticasone propionate 50 mcg/actuation Delta,Suspension 1 spray INTRANASAL DAILY PRN (Reason: Allergy Symptoms) RF: 0 olodaterol 2.5 mcg/actuation Mist 2 inh INHALATION DAILY@0800 RF: 0 cilostazol 50 mg Tablet 25 mg PO BID@0730,1800 RF: 0 acetaminophen [Tylenol Extra Strength] 500 mg Tablet 1,000 mg PO PRN RF: 0 hydrochlorothiazide 25 mg Tablet 25 mg PO DAILY@0730 RF: 0 Held metformin 850 mg tablet 850 mg PO TID@0730,1200,1800 RF: 0 Hold Instructions: Resume on 10/06/20. ibuprofen 400 mg tablet 400 mg PO Q8H PRN (Reason: Leg pain) Qty: 30 RF: 0 Hold Instructions: Resume on 10/05/20. Eliquis 5 mg tablet 2.5 mg PO BID@0730,1800 RF: 0 Hold Instructions: Resume on 10/06/20. Discharge Orders: Discharge Order (Routine); Ordered 10/01/20 Ordered By: Cornell Hoover Other Ambulatory Orders: DME: Shower Chair (Order) Location: None Selected Ordered By: Cornell Hoover Referrals: Cornell Hoover M.D [Physician] - 1 month Lauren Maki FNP [Nurse Practitioner] - 7-10 days Discharge Diet: Diabetic Discharge Activity: Increase activity as tolerated Activity Restrictions/Additional Instructions: You [facility] be [facility] to [facility]. Dr Montalvo's team (vascular surgeon) is going to arrange admission and procedure to close the AV fistula. Discharge Attestations Time Spent in Discharge Care*: greater than 30 min Quality Metrics Clinical Quality Measures During this hospital stay, did patient experience: None Coding Level of Care Code Acute Chg FW DC note Diagnoses Peripheral arterial occlusive disease I77.9 Lower extremity edema R60.0 Severe claudication I73.9 Diabetic peripheral neuropathy associated with type 2 diabetes mellitus E11.42 AV fistula I77.0
[2020-10-01 08:25] VITALS: BP 130/68; PULSE 94; RESP 21; TEMP 36.6; O2SAT 92
--- NOTE | 2020-10-01 10:01 | PC.SOCIAL ---
*IMM UPDATE* Gave patient verbal IMM update. Verbalized understanding. 10/01/20 @ 0941 Initialed, dated, timed and placed in chart.
== END 2020-10-01 09:21 | disposition home or self-care (01) | DRG 301 ==
LOC: ER 14:05 → MEDSURG 18:25 → CSU 09-30 16:17
PROVIDERS: Admitting Provider Internal Medicine; Emergency Provider Family Medicine; PCP Family Medicine; Visit Provider Internal Medicine
PROC: B41FYZZ Fluoroscopy of Right Lower Extremity Arteries using Other Contrast (ICD-10-PCS; principal; 2020-09-30 16:30)
DX: I77.0 Arteriovenous fistula, acquired (principal); E11.51 Type 2 diabetes mellitus with diabetic peripheral angiopathy without gangrene; E11.42 Type 2 diabetes mellitus with diabetic polyneuropathy; I25.10 Atherosclerotic heart disease of native coronary artery without angina pectoris; Z95.5 Presence of coronary angioplasty implant and graft; Z95.820 Peripheral vascular angioplasty status with implants and grafts; Z85.51 Personal history of malignant neoplasm of bladder; Z87.891 Personal history of nicotine dependence
CPT/HCPCS: 36415; 36416; 75635; 75710; 80048; 80053; 82962; 85025; 93971; 96372; 96374; 96375; 99285; C1769; C1887; C1894; J1644; J1815 ×2; J1940; J2250; J2270; J2405; J3010; J7030; J7512; Q9967

== ENCOUNTER 2020-10-15 07:59 | Outpatient (CLI) | payer OTHER, MEDICARE, SELFPAY ==
[2020-10-15 08:38] LABS: Basophils # 0.1 10^3/uL (0.0-0.1); Basophils % 0.6 %; Eosinophils # 0.7 10^3/uL (0.0-0.8); Eosinophils % 8.5 %; Hematocrit 31.7 % (42.0-52.0); Lymphocytes # 1.1 10^3/uL (0.8-4.8); Lymphocytes % 12.9 %; Mean Corpuscular HGB Conc 31.5 g/dL (30.0-36.0); Mean Corpuscular Volume 91.9 fL (80-94); Mean Platelet Volume 8.5 fL (7.4-10.4); Monocytes # 0.8 10^3/uL (0.2-0.9); Monocytes % 9.1 %; Neutrophils # 5.85 10^3/uL (1.8-7.7); Neutrophils % 68.4 %; Nucleated Red Blood Cells % 0 %; Platelet Count 350 10^3/cmm (130-400); Red Blood Count 3.45 10^6/uL (4.1-5.3); Red Cell Distribution Width 15.8 % (12.1-15.1); White Blood Count 8.6 10^3/uL (4.0-10.0)
[2020-10-15 08:53] LABS: Alanine Aminotransferase 16 U/L (0-41); Albumin Level 3.8 g/dL (3.5-5.2); Alkaline Phosphatase 78 IU/L (40-130); Anion Gap 14.3 (5-19); Aspartate Amino Transferase 16 U/L (0-40); Blood Urea Nitrogen 11 mg/dL (8-23); Calcium 9.4 mg/dL (8.5-10.5); Carbon Dioxide 26 mmol/L (22-29); Chloride 96 mmol/L (98-107); Glucose 183 mg/dL (65-115); Osmolality Calculated 278 mOsm/kg (285-295); Potassium 4.3 mmol/L (3.5-5.1); Sodium 132 mmol/L (136-145); Total Bilirubin 0.2 mg/dL (0.15-1.2); Total Protein 6.8 g/dL (6.6-8.7)
[2020-10-15 10:13] LABS: Ferritin 46 ng/mL (30-400); Iron 42 ug/dL (59-158); Percent Saturation 12.6 % (20-50); Total Iron Binding Capacity 331 mcg/dl; Unsaturated Iron Binding 289 ug/dL (112-347)
[2020-10-15] MEDS: sodium chloride 0.9% 250 ML 75 ML IV (10:50)
[2020-10-15 12:28] LABS: Folate Level 15.7 ng/mL (4.5-32.2)
--- NOTE | 2020-10-15 15:06 | ONC FU_ITS ---
Dr. Campbell follow up note Patient: Marbin Funez V Unit #: [id number]: [id number] Dicatated By: Nuno Campbell M.D.Date of Visit:Oct 15, 2020 Onc Med Follow-up/Prog Note History of Present Illness: Mr. Funez is a 75-year-old gentleman with a history of COPD. He went [place] [facility] on November 26, 2019 with 3-day history of right flank pain. He reported his pain was radiating to with right pelvis. A CT scan of abdomen pelvis was done on November 26, 2019 which showed no urinary tract calculus or obstruction normal appendix; calcified right lower lobe pulmonary granuloma. On January 09, 2020, he had a chest x-ray done for chest pain and found to have right upper lung mass. He subsequently underwent CT scan of chest which confirmed right upper lobe lung mass measuring 2.7 x 3.1 cm. The lesion was subpleural and also showed mediastinal and hilar lymphadenopathy. He underwent transthoracic needle biopsy on February 06, 2020. He also underwent bronchoscopy and transbronchial needle aspiration of station 4R and 10 R lymph node. 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 Immunohistochemistry were negative for TTF-1, Napsin and p63 and CK 20 so based on this immunoprofile tumor was not overtly designated as a lung primary. Mr Funez has history of coronary artery disease status post stent placement and also has peripheral vascular disease. Patient denies any hemoptysis or hematemesis, denies any weight loss, denies any poor appetite,. Denies any headaches blurred vision or double vision. As per patient he has history of bladder cancer, diagnosed in 2007 or 8 at that time tumor was removed and he was given intravesical therapy. And followed by yearly exam until recently with no evidence of recurrence of disease. He also has history of neuropathy involving both feet probably due to peripheral vascular disease. He was evaluated by a vascular surgeon for intervention stenting or arterial bypass , As per patient bilateral femoral artery stenting was done on April 15, 2020 And on same day he underwent coronary artery stenting done, tolerated procedure very well and he was started on Plavix and aspirin. PET/CT scan from March 10, 2020 showed marked increase of metabolic activity in the anterior right upper lung lobe size about 2.6 x 3.2 cm consistent with neoplasia and there is extensive mediastinal lymph node involvement of anterior/prevascular lymph nodes, right paratracheal, precarinal with an index lesion measuring 1.4 x 2.0 cm with SUV of 6.75 and right hilar lymph node. No evidence of distant metastatic disease MRI scan of the brain done on April 06, 2020 showed no evidence of metastatic disease Tumor marker CA 19???9 was 18.37, PSA 0.673, and CEA 138.7., Patient had ENT evaluation done which shows no evidence of head or neck cancer EGD Was done on April 01, 2020, it was normal exam, As per patient he had colonoscopy done last year and it was unremarkable Mr Funez was offered treatment with concurrent chemoradiation and started with weekly carboplatin/Taxol on May 11, 2020. He has tolerated it well but has required growth factor support for neutropenia. He completed combined chemoradiation therapy on June 23, 2020 Follow-up CT PET scan done on July 25, 2020 showed right upper lobe mass measured 2.3 x 1.8 cm, with SUV of 3.2 compared to 2.6 x 3.[address] PET scan done on March 10, 2020 and the right upper lobe hilar lymph node with SUV of 4.5. Other scattered mediastinal lymph nodes are subcentimeter in size and FDG negative no evidence of distant mets Mr Funez tarted on maintenance durvalumab every 2 weeks for 12 months on July 28, 2020. He had follow-up arterial duplex of the right lower extremity on August 12, 2019 through the ER. He presented with pain from his knee to his ankle on the right leg. He has a history of stents in his groin in November 2019 per his report. The arterial Doppler did report features of high-grade stenosis in the distal superficial femoral artery on the right side. There are abnormal Doppler waveforms suggestive of collateral filling of the popliteal and infrapopliteal vessels. Severely diminished resting KATHERYN 0.4 on the right side. There were no similar previous studies available for comparison. Mr. Funez does have follow-up with cardiology regarding these findings. 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 Otherwise denies any mouth sores denies any fever chills denies any nausea or vomiting denies any skin rash denies any shortness of breath denies any diarrhea or constipation denies any jaundice, tolerating durvalumab well otherwise, as per patient his vascular surgeon informed him to continue with immunotherapy while undergoing management for peripheral vascular disease Medications: Acarbose 1 Tablet (of 100 mg) Oral t.i.d., Aspirin 1 Tablet (of 81 mg) Tablet, enteric coated Oral daily, Atorvastatin Calcium 1 Tablet (of 80 mg) Oral daily, Cetirizine HCl 1 Tablet (of 10 mg) Oral daily, Cholecalciferol 1 Capsule (of 25 mcg ) Oral daily, Cilostazol 1 Tablet (of 50 mg) Oral b.i.d., Clopidogrel Bisulfate 1 Tablet (of 75 mg) Oral daily, Flonase Suspension Nasal, Furosemide 1 Tablet (of 20 mg) Oral daily, Insulin Aspart Subcutaneous, Insulin Glargine 10 Units (of 100 Units/mL) Subcutaneous daily, Isosorbide Mononitrate ER 1 Tablet (of 30 mg) Tablet SR 24 HR Oral daily, Lisinopril 1 Tablet (of 40 mg) Oral daily, metFORMIN HCl 1 Tablet (of 850 mg) Oral t.i.d., Multivitamin 1 Tablet Oral daily, Naproxen 1 Tablet (of 250 mg) Oral q 8 hours PRN Allergies: No Known Allergies. Review of Systems: Review of Systems is not available for this patient. Vital Signs: Performed on Oct 15, 2020 09:07 Height - 70.00 in Weight - 180 lbs (LOW) BSA - 2.00 sq.m BMI - 25.83 Temperature - 97.1 F (LOW) Pulse - 103 /min (HIGH) Respiration - 18 /min BP - 128/69 mm(hg) O2 Sat - 98 % Pain - 7 Fatigue - 0 Performance Status: 2 - Ambulatory/capable of all self-care, unable to perform any work activities. Up and about more than 50% of waking hours. (ECOG) Physical Examination: ENMT - No mouth sores, no thrush, no jaundice, Respiratory - Clear to auscultation, mild wheezing, Cardiovascular - Regular rate and rhythm of heart, Abdomen - Soft, bowel sounds present, Extremities - No visible edema. Lab/Imaging: Test performed on Aug 12, 2020 08:36 Sodium 131 mmol/L Potassium 4.0 mmol/L Chloride 94 mmol/L CO2 29 mmol/L Anion Gap 12.0 BUN 10 mg/dL Creatinine 0.5 mg/dL Cr Clearance (Est) 150.0400 mL/min Glucose 199 mg/dL Osmolality - Calculated 277 mOsm/kg Calcium 9.2 mg/dL Protein, Total 6.3 g/dL Albumin 3.7 g/dL Globulin 2.6 g/dL Bilirubin, Total 0.3 mg/dL ALT (SGPT) 17 U/L AST (SGOT) 16 U/L Alkaline Phosphatase 62 IU/L WBC 7.5 10 3/uL RBC 3.27 10 6/uL HGB 10.3 g/dL HCT 31.4 % MCV 96.0 fL MCH 31.5 pg MCHC 32.8 g/dL RDW 15.7 % Platelet Count 236 10 3/cmm MPV 9.0 fL Neutrophils 4.61 10 3/uL Lymphocytes 1.5 10 3/uL Monocytes 0.8 10 3/uL Eosinophils 0.5 10 3/uL Basophils 0.1 10 3/uL Neutrophil % 61.6 % Lymphocyte % 19.6 % Monocyte % 10.5 % Eosinophil % 7.2 % Basophils % 0.7 % NRBC % 0 % Test performed on Jun 19, 2020 08:40 CBC Slide Review Slide Review Perform SLIDE REVIEW AGREES WITH AUTOMATED RESULTS NEUTROPHIL RESEMBLE PEGLER HUET CELLS Test performed on May 27, 2020 14:45 SARS-CoV-2 RNA (COVID-19) NOT DETECTED A Not Detected (negative) test result for this test means that SARS- CoV-2 RNA was not present in the specimen above the limit of detection. A negative result does not rule out the possibility of COVID-19 and should not be used as the sole basis for treatment or patient management decisions. If COVID-19 is still suspected, based on exposure history together with other clinical findings, re-testing should be considered in consultation with public health authorities. Laboratory test results should always be considered in the context of clinical observations and epidemiological data in making a final diagnosis and patient management decisions. Please review the Fact Sheets and FDA authorized labeling available for health care providers and patients using the following websites: [email or web address] ([email or web address]/fact-[email or web address] ([email or web address])/[email or web address]/Patients/NAAT/ fact-sheet2 This test has been authorized by the FDA under an Emergency Use Authorization (EUA) for use by authorized laboratories. Due to the current public health emergency, [facility] is receiving a high volume of samples from a wide variety of swabs and media for COVID-19 testing. In order to serve patients during this public health crisis, samples from appropriate clinical sources are being tested. Negative test results derived from specimens received in non-commercially manufactured viral collection and transport media, or in media and sample collection kits not yet authorized by FDA for COVID-19 testing should be cautiously evaluated and the patient potentially subjected to extra precautions such as additional clinical monitoring, including collection of an additional specimen. Methodology: Nucleic Acid Amplification Test (NAAT) includes RT-PCR or TMA Additional information about COVID-19 can be found at the [facility] website: [email or web address] ([email or web address]. THIS TEST WAS PERFORMED AT: [facility] [address] [id number] VISHNU RODRIGUEZ DO,MPH Test performed on May 27, 2020 14:36 Ua Color Yellow Ua Appearance Clear Ua Glucose Trace Ua Bilirubin Neg Ua Ketones Negative Ua Specific [place] 1.020 Ua Blood Neg Ua pH 5 Ua Protein Neg Ua Nitrites Negative Ua Leukocyte Esterase Negative Test performed on May 26, 2020 00:00 Manual Diff DUPLICATE TEST ST 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 CT scan of abdomen pelvis done in November 2019 showed no evidence of metastatic disease ENT, EGD evaluation showed no evidence of head and neck cancer, as per Patient, he had colonoscopy done last year it was unremarkable tumor marker CA 19???9 18.[address] CEA [address] PET scan done on March 10, 2020 showed right upper lobe mass measuring 2.6 x 3.2 cm with SUV of 10.30, extensive mediastinal lymphadenopathy along with right hilar lymph node. No distant metastatic disease a single rib, right 10th rib laterally demonstrated on heparin fracture with callus formation .MRI scan of the head done on April 06, 2020 showed no evidence of metastatic disease, Clinical stage IIIa Started on combined chemoradiation with weekly carboplatin/Taxol on May 11, 2020 Completed on June 23, 2020, Started on maintenance therapy with durvalumab on July 28, 2020, he will receive it biweekly x12 months Diabetes and related complication ? diabetic neuropathyOr vascular as patient has been severe peripheral vascular disease involving bilateral feet Peripheral vascular disease,Status post bilateral femoral arterial stenting Done on April 15, 2020 CAD status post stent placement.Due to progressive coronary artery disease coronary artery stenting Done on April 15, 2020 Plan: Discussed with patient regarding his labs white blood count 8.6 hemoglobin 10 hematocrit 31.7 platelets 302,000 CMP within normal ranges sodium, creatinine level is pending His iron studies shows iron deficiency with low iron and iron saturation Clinically, patient is doing reasonably well now recovering from right leg vascular surgery and being followed by vascular surgeon in [place] and cardiology here in [place]. We will proceed with this next maintenance dose of immunotherapy with durvalumab today and then he will return to clinic in 2 weeks with CBC CMP As patient's CBC shows progressive anemia and anemia work-up is consistent with possibly iron deficiency anemia so we will try [id number] iron supplement and monitor his hemoglobin Return to clinic in 2 weeks with CBC CMP and for durvalumab Signed By: Nuno Campbell M.D. <<Signature on File>>
== END 2020-10-15 08:00 | disposition home or self-care (01) ==
PROVIDERS: PCP Family Medicine; Visit Provider Internal Medicine Hematology & Oncology
DX: Z51.12 Encounter for antineoplastic immunotherapy (principal); C34.11 Malignant neoplasm of upper lobe, right bronchus or lung; Z92.3 Personal history of irradiation; Z92.21 Personal history of antineoplastic chemotherapy; I25.10 Atherosclerotic heart disease of native coronary artery without angina pectoris; I73.9 Peripheral vascular disease, unspecified; Z95.5 Presence of coronary angioplasty implant and graft; Z95.828 Presence of other vascular implants and grafts; E61.1 Iron deficiency
CPT/HCPCS: 80053; 82728; 82746; 83540; 83550; 85025; 96413; 99215; J7050; J9173

== ENCOUNTER 2020-10-22 10:35 | Emergency (ER) | payer MEDICARE, SELFPAY ==
[2020-10-22 10:48] VITALS: BP 116/67; PULSE 100; RESP 18; TEMP 36.5; O2SAT 95; BMI 26.8
--- NOTE | 2020-10-22 11:31 | ED_ITS ---
HPI - Wound/Laceration General: Chief Complaint: Wound/Laceration Stated Complaint: stitches removal, sent by Dr. Hoover Time Seen by Provider: 10/22/20 11:18 History of Present Illness: HPI narrative: Patient is a 75-year-old male who comes to the ED to get sutures removed. Patient was seen by Dr. Hoover and told to come here to the ED to get sutures removed since he is on a blood thinner. Patient had a large hematoma removed on right lower leg approximately 3 weeks ago. His surgical wound is healing up well and he reports no drainage. He has some tenderness to his right calf still which the surgeon told him that would be expected. Denies any other complications or complaints. Associated symptoms: Denies chills, fever(s), nausea or vomiting Review of Systems Const: Denies: fever(s), chills or fatigue Eyes: Denies: change in vision or eye discomfort ENMT: Denies: throat pain, odynophagia, nasal discharge or nasal congestion Card: Denies: chest pain, palpitations, edema, swelling of feet/ankles, dyspnea on exertion or orthopnea Resp: Denies: dyspnea, productive cough or non-productive cough GI: Denies: abdominal pain, nausea, vomiting, diarrhea, constipation or hematochezia : Denies: flank pain, difficulty urinating, dysuria or hematuria Musc: Reports: extremity pain (right lower leg pain after-surgery); Denies: neck pain, back pain or extremity swelling Skin/Breast: Reports: surgical incision (anterior aspect of right lower leg); Denies: rash or new lesions Neuro: Denies: headache(s), numbness in extremities or weakness in extremities PFS ED PFSH: Medical History Bladder cancer Lung nodule PVD (peripheral vascular disease) Type 2 diabetes mellitus with diabetic polyneuropathy Surgical History H/O colonoscopy H/O esophagogastroduodenoscopy (04/01/20) H/O heart artery stent History of bladder surgery History of bronchoscopy History of surgical removal of pilonidal cyst Port-A-Cath in place (04/01/20) Family History Other CAD (coronary artery disease) Cancer Diabetes Hyperlipidemia Hypertension Lung disease Denies family history of Clotting disorder Dementia Psychiatric illness Chronic kidney disease (CKD) Suicide Anesthesia complication Bleeding disorder Family history of premature coronary artery disease Stroke Social History Smoking and tobacco status: former smoker Quit status (tobacco): has quit using tobacco Year quit tobacco: 2007- PPD x 45 Years Alcohol intake: never Lives independently: Yes Household members: spouse Marital status: service: Yes Current occupational status: retired History of recent travel: No Current gender identity: Male Physical Exam Const: COMMON NORMALS: no acute distress, patient oriented x3 and alert GENERAL APPEARANCE: cooperative and comfortable HENMT: COMMON NORMALS: normocephalic HEAD & SCALP: normocephalic MOUTH: Normal oral and palatal mucosa present THROAT: posterior oropharynx normal and uvula midline Neck/C-Spine: COMMON NORMALS: supple GENERAL: Yes normal visual inspection Resp: COMMON NORMALS: normal respiratory effort, No retractions, No use of ac cessory muscles and clear to auscultation bilaterally AUSCULTATION: clear to auscultation bilaterally Cardio: COMMON NORMALS: regular rate, regular rhythm, S1 normal heart sound present, S2 normal heart sound present, No gallops present (Cardio), No clicks present (Cardio), No murmurs present (Cardio) and Peripheral pulses 2+ throughout RATE: regular rate RHYTHM: regular rhythm HEART SOUNDS: S1 normal heart sound present and S2 normal heart sound present PERIPHERAL PULSES: Peripheral pulses 2+ throughout GI: COMMON NORMALS: Normal to inspection, nondistended, normoactive bowel sounds present, Soft to palpation, non-tender and no masses PALPATION: Yes Soft to palpation : COMMON NORMALS: Yes no CVA tenderness BLADDER/KIDNEY EXAM: Yes no CVA tenderness Back/Pelvis: COMMON NORMALS: no CVA tenderness Extremity: NARRATIVE EXTREMITY EXAM: Right lower extremity?anterior aspect of lower leg?approximately 15 cm surgical incision that is closed by sutures. Surgical site appears to be healing well and there is no signs of cellulitis. No visible drainage. Neuro: COMMON NORMALS: patient oriented x3 and moves all extremities SENSORIUM/ORIENTATION: Yes alert Skin: NARRATIVE SKIN EXAM: Right lower extremity?anterior aspect of lower leg?approximately 15 cm surgical incision that is closed by sutures. Surgical site appears to be healing well and there is no signs of cellulitis. No visible drainage. Course ED course: After evaluated at the surgical site and appears to be healing well and I removed 10 sutures from patient's laceration site. There was minimal bleeding. Patient tolerated suture removal well. The nurse then irrigated and cleaned surgical site and applied a bandage. Vital Signs: Vital signs: Vital Signs Temperature 97.7 F 10/22/20 10:48 Pulse Rate 90 10/22/20 12:34 Respiratory Rate 18 10/22/20 10:48 Blood Pressure 133/71 10/22/20 12:34 Pulse Oximetry 97 10/22/20 12:34 MDM - Wound/Laceration MDM Narrative: Medical decision making narrative: Patient is a 75-year-old male who comes to the ED to get sutures removed from surgical site on right lower leg. After evaluated at the surgical site and appears to be healing well and I removed 10 sutures from patient's laceration site. There was minimal bleeding. Patient tolerated suture removal well. The nurse then irrigated and cleaned surgical site and applied a bandage. Patient was discharged home. Return to ED precautions given. Follow-up with PCP in 7 to 10 days for reevaluation. Patient understood and agreed with plan. Discharge Plan Discharge Patient Disposition: Home Clinical Impression: Encounter for removal of sutures Condition: Stable Prescriptions: No Action cholecalciferol (vitamin D3) 25 mcg (1,000 unit) capsule 25 mcg PO DAILY@0730 RF: 0 acarbose 100 mg tablet 100 mg PO TID@0730,1200,1800 RF: 0 metformin 850 mg tablet 850 mg PO TID@0730,1200,1800 RF: 0 Hold Instructions: Resume on 09/12/20. lisinopril 40 mg tablet 20 mg PO DAILY@0730 RF: 0 aspirin 81 mg tablet,delayed release (DR/EC) 81 mg PO DAILY@12 RF: 0 atorvastatin 80 mg tablet 40 mg PO DAILY@1800 RF: 0 Centrum Silver 0.4-300-250 mg-mcg-mcg tablet 1 tab PO DAILY@0730 RF: 0 insulin aspart U-100 [Novolog Flexpen U-100 Insulin] 100 unit/mL (3 mL) insulin pen 5 unit SUBCUT TID RF: 0 insulin glargine 100 unit/mL (3 mL) insulin pen 35 - 45 unit SUBCUT DAILY@22 RF: 0 (DME) Sole supports Qty: 1 RF: 0 (DME) Custom orthotics See Rx Instructions .Route .MEDSUPPLY Qty: 1 RF: 0 Eliquis 2.5 mg tablet 2.5 mg PO BID Qty: 60 RF: 3 cetirizine 10 mg Tablet 10 mg PO DAILY RF: 0 isosorbide mononitrate 30 mg Tablet Extended Release 24 Hr 30 mg PO DAILY@0800 RF: 0 clopidogrel 75 mg Tablet 75 mg PO DAILY RF: 0 polyethylene glycol 3350 17 gram/dose Powder 17 g PO DAILY RF: 0 fluticasone propionate 50 mcg/actuation [place],Suspension 1 spray INTRANASAL DAILY PRN (Reason: Allergy Symptoms) RF: 0 olodaterol 2.5 mcg/actuation Mist 2 inh INHALATION DAILY@0800 RF: 0 cilostazol 50 mg Tablet 25 mg PO BID@0730,1800 RF: 0 acetaminophen [Tylenol Extra Strength] 500 mg Tablet 1,000 mg PO PRN RF: 0 hydrochlorothiazide 25 mg Tablet 25 mg PO DAILY@0730 RF: 0 ibuprofen 400 mg tablet 400 mg PO Q8H PRN (Reason: Leg pain) Qty: 30 RF: 0 Hold Instructions: Resume on 10/05/20. Discharge Orders: Discharge ED (Routine); Ordered 10/22/20 Ordered By: Hans Bonilla Referrals: Shavonne Biswas MD [Primary Care Provider] - Discharge Diet: Regular Discharge Activity: Increase activity as tolerated Activity Restrictions/Additional Instructions: Follow-up with medical provider as directed. Continue taking all home medications as prescribed. Return to the ER or your medical provider if condition worsens. Please read and understand discharge instructions. Thank you for choosing [facility] for your healthcare needs today. Please realize this is an emergency room and that we are providing you with a medical screening exam and this may not be complete and all inclusive of all the testing and or work up that you may need to determine your ailment or severity of your illness. It is very important that you follow up as instructed or that you return to the Emergency Department should you have concerns or if your condition changes or worsens in any way. Coding Level of Care Code ED Manager [employer] for [facility]en Rosas Exam Comprehensive
[2020-10-22 12:26] VITALS: BP 132/66; PULSE 86; O2SAT 98
[2020-10-22 12:34] VITALS: BP 133/71; PULSE 90; O2SAT 97
== END 2020-10-22 12:35 | disposition home or self-care (01) ==
PROVIDERS: Emergency Provider Physician Assistant; PCP Family Medicine
DX: Z48.02 Encounter for removal of sutures (principal); Z79.01 Long term (current) use of anticoagulants; Z79.02 Long term (current) use of antithrombotics/antiplatelets; Z79.82 Long term (current) use of aspirin; Z79.4 Long term (current) use of insulin; Z85.51 Personal history of malignant neoplasm of bladder; E11.9 Type 2 diabetes mellitus without complications; Z87.891 Personal history of nicotine dependence
CPT/HCPCS: 99282

== ENCOUNTER 2020-10-29 06:05 | Outpatient (CLI) | payer OTHER, MEDICARE, SELFPAY ==
[2020-10-29 13:47] LABS: Basophils # 0.1 10^3/uL (0.0-0.1); Basophils % 0.8 %; Eosinophils # 0.8 10^3/uL (0.0-0.8); Eosinophils % 8.8 %; Hematocrit 33.9 % (42.0-52.0); Hemoglobin 10.7 g/dL (11.7-16.6); Lymphocytes # 0.9 10^3/uL (0.8-4.8); Lymphocytes % 10.2 %; Mean Corpuscular HGB Conc 31.6 g/dL (30.0-36.0); Mean Corpuscular Hemoglobin 28.4 pg (28.0-34.0); Mean Corpuscular Volume 89.9 fL (80-94); Mean Platelet Volume 8.6 fL (7.4-10.4); Monocytes % 11.6 %; Neutrophils % 68.3 %; Nucleated Red Blood Cells % 0 %; Platelet Count 320 10^3/cmm (130-400); Red Blood Count 3.77 10^6/uL (4.1-5.3); Red Cell Distribution Width 15.9 % (12.1-15.1); White Blood Count 8.9 10^3/uL (4.0-10.0)
[2020-10-29 14:10] LABS: Alanine Aminotransferase 17 U/L (0-41); Albumin Level 3.6 g/dL (3.5-5.2); Alkaline Phosphatase 74 IU/L (40-130); Aspartate Amino Transferase 14 U/L (0-40); Blood Urea Nitrogen 9 mg/dL (8-23); Calcium 8.9 mg/dL (8.5-10.5); Carbon Dioxide 25 mmol/L (22-29); Chloride 90 mmol/L (98-107); Globulin 2.7 g/dL (1.3-4.6); Glucose 180 mg/dL (65-115); Osmolality Calculated 261 mOsm/kg (285-295); Sodium 124 mmol/L (136-145); Total Bilirubin 0.2 mg/dL (0.15-1.2); Total Protein 6.3 g/dL (6.6-8.7)
--- NOTE | 2020-11-16 23:19 | ONC FU_ITS ---
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 Funez is a 75-year-old gentleman with a history of COPD. He went to [facility] on November 26, 2019 with 3-day history of right flank pain. He reported his pain was radiating to with right pelvis. A CT scan of abdomen pelvis was done on November 26, 2019 which showed no urinary tract calculus or obstruction normal appendix; calcified right lower lobe pulmonary granuloma. On January 09, 2020, he had a chest x-ray done for chest pain and found to have right upper lung mass. He subsequently underwent CT scan of chest which confirmed right upper lobe lung mass measuring 2.7 x 3.1 cm. The lesion was subpleural and also showed mediastinal and hilar lymphadenopathy. He underwent transthoracic needle biopsy on February 06, 2020. He also underwent bronchoscopy and transbronchial needle aspiration of station 4R and 10 R lymph node. 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 Immunohistochemistry were negative for TTF-1, Napsin and p63 and CK 20 so based on this immunoprofile tumor was not overtly designated as a lung primary. Mr Funez has history of coronary artery disease status post stent placement and also has peripheral vascular disease. Patient denies any hemoptysis or hematemesis, denies any weight loss, denies any poor appetite,. Denies any headaches blurred vision or double vision. As per patient he has history of bladder cancer, diagnosed in 2006 or 8 at that time tumor was removed and he was given intravesical therapy. And followed by yearly exam until recently with no evidence of recurrence of disease. 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 He was evaluated by a vascular surgeon for intervention stenting or arterial bypass , As per patient bilateral femoral artery stenting was done on April 15, 2020 And on same day he underwent coronary artery stenting done, tolerated procedure very well and he was started on Plavix and aspirin. PET/CT scan from March 10, 2020 showed marked increase of metabolic activity in the anterior right upper lung lobe size about 2.6 x 3.2 cm consistent with neoplasia and there is extensive mediastinal lymph node involvement of anterior/prevascular lymph nodes, right paratracheal, precarinal with an index lesion measuring 1.4 x 2.0 cm with SUV of 6.75 and right hilar lymph node. No evidence of distant metastatic disease MRI scan of the brain done on April 06, 2020 showed no evidence of metastatic disease Tumor marker CA 19???9 was 18.37, PSA 0.673, and CEA 138.7., Patient had ENT evaluation done which shows no evidence of head or neck cancer EGD Was done on April 01, 2020, it was normal exam, As per patient he had colonoscopy done last year and it was unremarkable Mr Funez was offered treatment with concurrent chemoradiation and started with weekly carboplatin/Taxol on May 11, 2020. He has tolerated it well but has required growth factor support for neutropenia. He completed combined chemoradiation therapy on June 23, 2020. Follow-up PET/CT scan done on July 25, 2020 showed right upper lobe mass measured 2.3 x 1.8 cm, with SUV of 3.2 compared to 2.6 x 3.[address] PET scan done on March 10, 2020. The right upper lobe hilar lymph node had a SUV of 4.5. Other scattered mediastinal lymph nodes are subcentimeter in size and FDG negative no evidence of distant mets. Mr Funez started on maintenance durvalumab every 2 weeks for 12 months on July 28, 2020. He had follow-up arterial duplex of the right lower extremity on August 12, 2019 through the ER. He presented with pain from his knee to his ankle on the right leg. He has a history of stents in his groin in November 2019 per his report. The arterial Doppler did report features of high-grade stenosis in the distal superficial femoral artery on the right side. There are abnormal Doppler waveforms suggestive of collateral filling of the popliteal and infrapopliteal vessels. Severely diminished resting KATHERYN 0.4 on the right side. There were no similar previous studies available for comparison. Mr. Funez does have follow-up with cardiology regarding these findings. He presented for followup with Dr Campbell with complaints of right leg pain. 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 Mr Funez reports that his vascular surgeon informed him to continue with immunotherapy while undergoing management for peripheral vascular disease. His immunotherapy been placed on hold from his first cycle on July 28, 2020 but he did resume it on October 15, 2020. Mr. Funez is here today for follow-up and consideration of cycle 3 Imfinzi/durvalumab. He has tolerated it well overall. He states that he has not had any fever or chills. He denies any new shortness of breath orthopnea. He denies any dyspnea. He states he has been on oral iron for 7 to 10 days and is tolerating it okay so far . He has had some constipation off and on but that is currently relieved with MiraLAX as needed. He states he may take a dose once a week or a little less. He denies any diarrhea. He denies any nausea or vomiting. He denies any cough or hemoptysis. He denies any headaches, vision changes or acute episodes of confusion. He denies any skin changes, rash. He does have a right lower leg wound that is slowly healing from his peripheral artery disease. He states it is not draining and does not appear infected at this time. His appetite is fair. His energy is marginal his ECOG is 1. He denies any new concerns today. Past Medical History: Peripheral neuropathy Peripheral vascular disease Type II diabetes History of bladder cancer in 2006 Past Surgical History: EGD PORTHACATHER PLACEMENT DR. PARK Stent placment Wil and wil covid vaccine in 2020 Colonoscopy in 2018 Allergies: No Known Allergies. Medications: Acarbose 1 Tablet (of 100 mg) Oral t.i.d. Aspirin 1 Tablet (of 81 mg) Tablet, enteric coated Oral daily Atorvastatin Calcium 1 Tablet (of 80 mg) Oral daily Cetirizine HCl 1 Tablet (of 10 mg) Oral daily Cholecalciferol 1 Capsule (of 25 mcg ) Oral daily Cilostazol 1 Tablet (of 50 mg) Oral b.i.d. Clopidogrel Bisulfate 1 Tablet (of 75 mg) Oral daily Flonase Suspension Nasal Furosemide 1 Tablet (of 20 mg) Oral daily Insulin Aspart Subcutaneous Insulin Glargine 10 Units (of 100 Units/mL) Subcutaneous daily Isosorbide Mononitrate ER 1 Tablet (of 30 mg) Tablet SR 24 HR Oral daily Lisinopril 1 Tablet (of 40 mg) Oral daily metFORMIN HCl 1 Tablet (of 850 mg) Oral t.i.d. Multivitamin 1 Tablet Oral daily Naproxen 1 Tablet (of 250 mg) Oral q 8 hours PRN Family History: Mr. Funez's mother is alive. Mr. Funez's father at age 69: lung cancer. Mr. Funez has 1 brother who is : stroke. He has 1 sister who is : stroke. Social History: Mr. Funez is and he is an unknown. Mr. Funez quit smoking 14 years ago but had smoked 2.5 packs/day for 50 years. He has no history of drinking. Review Of Symptoms: <See Above> Vital Signs: Performed on Oct 29, 2020 13:37 Height - 70.00 in Weight - 184 lbs (HIGH) BSA - 2.01 sq.m BMI - 26.40 Temperature - 97.7 F (LOW) Pulse - 88 /min Respiration - 18 /min BP - 120/60 mm(hg) O2 Sat - 96 % Pain - 6 Fatigue - 5,2 - Ambulatory/capable of all self-care, unable to perform any work activities. Up and about more than 50% of waking hours. (ECOG) Physical Examination: Constitutional Alert, oriented, no acute distress. Skin pink, warm and dry. Head Normocephalic; atraumatic. Eyes Conjunctivae and sclerae are clear and without icterus. Pupils are reactive and equal. Neck Supple without masses or thyromegaly. No jugular venous distension. Hematologic/Lymphatic No petechiae or purpura. No tender or palpable lymph nodes in the cervical or supraclavicular areas. Respiratory Lungs are diminished to auscultation without rhonchi or wheezing. Cardiovascular Regular rate and rhythm of heart without murmurs,clicks, gallops or rubs. Back/Spine Non-tender to palpation. Neurologic No sensory or motor deficits, normal cerebellar function, slow gait. Psychiatric Alert and oriented times three. Coherent speech. Verbalizes understanding of our discussions today. Laboratory:Test performed on Oct 29, 2020 13:15 Sodium 124 mmol/L Potassium 5.0 mmol/L Chloride 90 mmol/L CO2 25 mmol/L Anion Gap 14.0 BUN 9 mg/dL Creatinine 0.4 mg/dL Cr Clearance (Est) 184.6700 mL/min Glucose 180 mg/dL Osmolality - Calculated 261 mOsm/kg Calcium 8.9 mg/dL Protein, Total 6.3 g/dL Albumin 3.6 g/dL Globulin 2.7 g/dL Bilirubin, Total 0.2 mg/dL ALT (SGPT) 17 U/L AST (SGOT) 14 U/L Alkaline Phosphatase 74 IU/L WBC 8.9 10 3/uL RBC 3.77 10 6/uL HGB 10.7 g/dL HCT 33.9 % MCV 89.9 fL MCH 28.4 pg MCHC 31.6 g/dL RDW 15.9 % Platelet Count 320 10 3/cmm MPV 8.6 fL Neutrophils 6.10 10 3/uL Lymphocytes 0.9 10 3/uL Monocytes 1.0 10 3/uL Eosinophils 0.8 10 3/uL Basophils 0.1 10 3/uL Neutrophil % 68.3 % Lymphocyte % 10.2 % Monocyte % 11.6 % Eosinophil % 8.8 % Basophils % 0.8 % NRBC % 0 % 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 CT scan of abdomen pelvis done in November 2019 showed no evidence of metastatic disease ENT, EGD evaluation showed no evidence of head and neck cancer, as per Patient, he had colonoscopy done last year it was unremarkable tumor marker CA 19???9 18.37 CEA [address] PET scan done on March 10, 2020 showed right upper lobe mass measuring 2.6 x 3.2 cm with SUV of 10.30, extensive mediastinal lymphadenopathy along with right hilar lymph node. No distant metastatic disease a single rib, right 10th rib laterally demonstrated on heparin fracture with callus formation .MRI scan of the head done on April 06, 2020 showed no evidence of metastatic disease, Clinical stage IIIa Started on combined chemoradiation with weekly carboplatin/Taxol on May 11, 2020 Completed on June 23, 2020 Diabetes and related complication ? diabetic neuropathyOr vascular as patient has been severe peripheral vascular disease involving bilateral feet Peripheral vascular disease,Status post bilateral femoral arterial stenting Done on April 15, 2020 CAD status post stent placement.Due to progressive coronary artery disease coronary artery stenting Done on April 15, 2020 Plan/Problems Addressed at this Visit: PROBLEMS ADDRESSED TODAY 1. Right lung cancer-poorly differentiated adenosquamous. He completed combined chemoradiation with Carboplatin/paclitaxel on 06/23/2020. He had cycle 1 of durvalumab on July 28, 2020. He did have follow-up PET CT on 07/25/2020 which reported the right upper lobe mass measuring 2.3 x 1.8 cm with an SUV of 3.2 indicating viable residual disease. A right upper lobe hilar node has an SUV of 4.5, consistent with local metastatic disease. Other scattered mediastinal nodes are subcentimeter in size and FDG negative. The PET reports it was negative for disease outside of the chest. He had had hemoptysis but that resolved and he was able to proceed with immunotherapy as above on 07/28/2020. That has been his last cycle up until October 15, 2020 which time he did resume the durvalumab. He had had peripheral vascular disease which required work-up and treatment. He was able to resume the durvalumab on October 15, 2020 at full dosing. A. We will plan to proceed with cycle 3 durvalumab at 10 mg/kg. B. Today's labs reviewed in detail discussed with Mr. Funez and a copy was given to him. WBC 8.9, hemoglobin 10.7, platelets 1 20,000, ANC is 6100. His creatinine is 0.4 calcium 8.9 sodium was reported at 124 LFTs are normal total bilirubin 0.2 his weight is stable at 184. His last TSH was on July 28, 2020 which was reported at 1.76. C. Dr Campbell discussed with Mr Funez the role of maintenance therapy with durvalumab every 2 weeks for 12 months. Mr. Funez reports that his cardiology team has cleared him for immunotherapy. D. Plan to return in 2 weeks with followup visit and CBC, CMP and Iron studies for follow-up of oral iron and anemia. E. Mr Funez was encouraged to call us in the interim if questions or problems arise. Signed By: Felipa Lucio-, AOCNP Nuno Campbell MD <<Signature on File>>
== END 2020-10-29 06:06 | disposition home or self-care (01) ==
PROVIDERS: PCP Family Medicine; Visit Provider Nurse Practitioner
DX: Z51.12 Encounter for antineoplastic immunotherapy (principal); C34.11 Malignant neoplasm of upper lobe, right bronchus or lung; E11.42 Type 2 diabetes mellitus with diabetic polyneuropathy; E11.59 Type 2 diabetes mellitus with other circulatory complications; I73.9 Peripheral vascular disease, unspecified; I25.10 Atherosclerotic heart disease of native coronary artery without angina pectoris; Z95.5 Presence of coronary angioplasty implant and graft; Z79.899 Other long term (current) drug therapy
CPT/HCPCS: 80053; 85025; 96413; 99214; J7050; J9173

== ENCOUNTER 2020-11-09 10:14 | Emergency (ER) | payer OTHER, MEDICARE, SELFPAY ==
[2020-11-09 10:47] VITALS: BP 107/62; PULSE 109; RESP 18; TEMP 37.3; O2SAT 94; BMI 26.5
--- NOTE | 2020-11-09 11:25 | XRR_ITS ---
PROCEDURE INFORMATION: Exam: XR Chest Exam date and time: 11/09/2020 11:25 AM Age: 75 years old Clinical indication: Shortness of breath; Prior surgery; Surgery type: Port; Patient HX: SOB since chemo in 07/05, cp fever, lung cancer TECHNIQUE: Imaging protocol: XR of the chest. Views: 1 view. COMPARISON: CR XR chest 1V portable [id number] 07/07/2020 9:55 AM FINDINGS: Tubes, catheters and devices: A MediPort catheter is present in satisfactory position with the tip projecting in the SVC. Lungs: There is worsening right lung volume loss with prominent increasing atelectasis and consolidation in the right upper lobe. This may be due to postradiation therapy changes. Scattered fibrotic changes are present throughout the left lung similar to old studies. Pleural spaces: Unremarkable. No pleural effusion. No pneumothorax. Heart/Mediastinum: Unremarkable. No cardiomegaly. Bones/joints: Unremarkable. XR/XR chest 1V portable [id number] IMPRESSION: There is worsening volume loss in the right lung with prominent atelectasis and consolidation in the right upper lobe. This may be secondary to radiation therapy. Superimposed pneumonia in the right upper lobe cannot be excluded.
--- NOTE | 2020-11-09 11:28 | CT_ITS ---
WS: [id number] CTA OF THE CHEST WITH PULMONARY EMBOLISM PROTOCOL TECHNIQUE: High-resolution contrast enhanced CTA of the chest with coronal and sagittal reformatted i mages with pulmonary embolism protocol. MIP images are also reviewed. CLINICAL INFORMATION: SOB, h/o dvt, active cancer COMPARISON: None. DLP: 617.[address] scans at [facility] use at least one of these dose optimization techniques: automat ed exposure control; mA and/or kV adjustment per patient size (includes targeted exams where dose is matched to clinical indication); or iterative reconstruction. FINDINGS: Moderate chronic emphysematous changes. Small right pleural effusion. Normal caliber thoracic aorta. Aortic calcification. Proximal main pulmonary arteries are normal. Segmental and subsegmental pulmona ry arteries appear normal. No filling defects to indicate pulmonary embolus. Volume loss in the right upper lobe with partial opacification along the right hilum and supra hilum. Findings likely due to radiation therapy and/or postobstructive pneumonia. Fibrotic appearing change s the right upper lobe with pleural thickening. Bronchovascular thickening along the right hilum. A few scattered hazy groundglass infiltrates in the left upper lobe and left lower lobe in a subpleur al distribution. Adrenal glands are normal. Small esophageal hiatal hernia. Thoracic kyphosis. CT/CT angio chest PE protcl [id number] IMPRESSION: 1. No evidence of pulmonary embolus. 2. Treatment-related changes with bronchovascular soft tissue thickening along the right hilum and supra hilum. Volume loss right upper lobe. 3. Partial opacification in the right upper lobe medially along the mediastinu m likely due to radiation therapy and/or postobstructive pneumonia. Recommend f ollow-up to resolution. 4. Small right pleural effusion. 5. A few hazy ground glass infiltrates in the left lung is nonspecific but can be seen with COVID19 pneumonia.
--- NOTE | 2020-11-09 11:30 | W.ED.COVID ---
HPI - COVID General: Chief Complaint: COVID symptoms Stated Complaint: Tempature, body aches Time Seen by Provider: 11/09/20 11:04 Source: patient Mode of arrival: ambulatory Limitations: no limitations Triage information: Has fever, cough or shortness of breath. No known COVID + exposure last 14 days History of Present Illness: HPI Narrative: Patient is a 75-year-old male with a history of lung cancer who is currently receiving chemotherapy, diabetes mellitus, coronary artery disease with LAD stent last year, peripheral artery disease who had revascularization about a month ago of his right lower extremity with subsequent complication from the revascularization. He developed an AV fistula that was managed at [facility] in [place]. He presents today after being sent to the ER by the [facility]. He complains of posterior right chest pain, difficulty breathing, fever, and extreme fatigue. Symptoms have been going on for about 7 days now. He is here to be evaluated for these. MD complaint: has COVID symptoms Prior covid testing: no COVID 19 common symptoms: positive fever(s), chills, cough, dyspnea, fatigue and body aches; negative productive cough, headache(s), loss of sense of smell and/or taste, throat pain, nasal congestion, nausea, vomiting or diarrhea COVID 19 other sytmptoms: positive chest pain and lethargy; negative chest pressure, pleuritic pain, requiring oxygen, requiring more oxygen, respiratory distress, cyanosis, confusion or new neurological complaints Onset (ago): day(s) (7) Severity: moderate Pertinent comorbid conditions: diabetes, hypertension, heart disease and cancer Treatment prior to arrival: none COVID Results: SARS-CoV-2 Antigen (Rapid) Positive (Negative) H 11/09/20 11:40 11/09/20 SARS-CoV-2 RNA (RT-PCR) Not detected (NOT DETECTED) 09/04/20 10:30 09/04/20 Nasal/Oral Coronavirus 2019 PCR Not detected 09/17/20 11:20 09/17/20 Review of Systems General: Reports: 10 or more systems reviewed and unremarkable except in HPI and below Const: Reports: fever(s), chills, body aches and fatigue ENMT: Denies: throat pain or nasal congestion Card: Reports: chest pain Resp: Reports: dyspnea; Denies: productive cough GI: Denies: nausea, vomiting or diarrhea Neuro: Denies: headache(s) or confusion PFSH ED PFSH: Medical History Bladder cancer Lung nodule PVD (peripheral vascular disease) Type 2 diabetes mellitus with diabetic polyneuropathy Surgical History H/O colonoscopy H/O esophagogastroduodenoscopy (04/01/20) H/O heart artery stent History of bladder surgery History of bronchoscopy History of surgical removal of pilonidal cyst Port-A-Cath in place (04/01/20) Family History Other CAD (coronary artery disease) Cancer Diabetes Hyperlipidemia Hypertension Lung disease Denies family history of Clotting disorder Dementia Psychiatric illness Chronic kidney disease (CKD) Suicide Anesthesia complication Bleeding disorder Family history of premature coronary artery disease Stroke Social History Smoking and tobacco status: former smoker Quit status (tobacco): has quit using tobacco Year quit tobacco: 06-17 PPD x 45 Years Alcohol intake: never Lives independently: Yes Household members: spouse Marital status: service: Yes Current occupational status: retired History of recent travel: No Current gender identity: Male Physical Exam Const: COMMON NORMALS: no acute distress, average body habitus, patient oriented x3, no limitations, healthy appearing, alert and well nourished HENMT: COMMON NORMALS: normocephalic, atraumatic and moist oral mucous membranes HEAD & SCALP: normocephalic and atraumatic Neck/C-Spine: COMMON NORMALS: no meningeal signs and no JVD Resp: COMMON NORMALS: normal respiratory effort, No retractions, No use of accessory muscles, clear to auscultation bilaterally and percussion normal AUSCULTATION: clear to auscultation bilaterally PERCUSSION: percussion normal Cardio: COMMON NORMALS: no JVD, regular rate, regular rhythm, S1 normal heart sound present, S2 normal heart sound present, No gallops present (Cardio), No clicks present (Cardio), No murmurs present (Cardio), No rub (Cardio) and Peripheral pulses 2+ throughout RATE: regular rate RHYTHM: regular rhythm HEART SOUNDS: S1 normal heart sound present and S2 normal heart sound present PERIPHERAL PULSES: Peripheral pulses 2+ throughout GI: COMMON NORMALS: Normal to inspection, nondistended, normoactive bowel sounds present, Soft to palpation, non-tender, No hepatosplenomegaly present, no masses and no bruits PALPATION: Yes Soft to palpation and Yes No hepatosplenomegaly present Extremity: COMMON NORMALS: normal to inspection, full ROM, capillary refill normal, no calf tenderness and no pedal edema NARRATIVE EXTREMITY EXAM: Healing surgical scar on the medial side of his right lower extremity. Neuro: COMMON NORMALS: patient oriented x3 SENSORIUM/ORIENTATION: Yes alert MENINGEAL SIGNS: Yes no meningeal signs Skin: COMMON NORMALS: no rashes or lesions noted, no wounds, turgor normal, no jaundice, no petechiae and no mottling GENERAL SKIN EXAM: no rashes or lesions noted and turgor normal Course Reevaluation(s): Reevaluation #1: Discussed lab and imaging findings with him. Covid positive. He meets criteria for monoclonal antibody infusion and he will received with general. Discussed with him the risks and benefits and he voiced understanding and is in agreement with the plan he would like to receive the infusion today. Time: 13:25 Vital Signs: Vital signs: Vital Signs Temperature 99.1 F 11/09/20 10:47 Pulse Rate 96 11/09/20 14:23 Respiratory Rate 20 H 11/09/20 14:23 Blood Pressure 123/72 11/09/20 14:23 Pulse Oximetry 97 11/09/20 14:23 MDM - COVID MDM Narrative: Medical decision making narrative: 75-year-old male with a history of lung cancer who is on chemotherapy and presents to the emergency department with a 7-day history of fever cough, weakness. Evaluation in the emergency department shows he has Covid pneumonia. Patient is not hypoxic and not requiring oxygen that he meet the criteria for monoclonal antibody infusion. He was given the monoclonal antibody infusion in the emergency department and discharged home with a pulse oximeter. He is given instructions to return if he is hypoxic at home. He voiced understanding and is in agreement with the plan. Has received the [employer] Covid vaccine a few months ago. Medical Records: Attestation: I reviewed the patient's medical records. Lab Data: Attestation: I reviewed the patient's lab results. Labs: Lab Results 11/09/20 11/09/20 11/09/20 Range/Units 11:40 11:40 11:40 WBC 6.5 (4.0-10.0) 10^3/ uL RBC 4.29 (4.1-5.3) 10^6/u L Hgb 11.8 (11.7-16.6) g/dL Hct 36.7 L (42.0-52.0) % MCV 85.5 (80-94) fL MCH 27.5 L (28.0-34.0) pg MCHC 32.2 (30.0-36.0) g/dL RDW 16.0 H (12.1-15.1) % Plt Count 285 (130-400) 10^3/c mm MPV 8.7 (7.4-10.4) fL Neut % (Auto) 76.3 % Lymph % (Auto) 11.0 % Com[place] % (Auto) 9.9 % Eos % (Auto) 2.0 % Baso % (Auto) 0.3 % Neut # (Auto) 4.92 (1.8-7.7) 10^3/u L Lymph # (Auto) 0.7 L (0.8-4.8) 10^3/u L Comal # (Auto) 0.6 (0.2-0.9) 10^3/u L Eos # (Auto) 0.1 (0.0-0.8) 10^3/u L Baso # (Auto) 0.0 (0.0-0.1) 10^3/u L Nucleated RBC % (a uto) 0 % Nucleated RBCs # 0.0 /100WBC D-Dimer (0-0.59) ug/mIFE U Specimen Type Arterial Sample Site Radial, left ABG pH 7.45 (7.35-7.45) ABG pCO2 36.7 (35-45) mmHg ABG pO2 66.6 L (80.0-100.0) mmH g ABG HCO3 25.5 (22-26) mmol/L ABG Base Excess 1.6 (-2.0-2.0) mmol/ L Syed Test Pos Hematocrit 34.8 L (42-52) % O2 Delivery Device Room air Hand Or Machine Paster ID Gd Sodium Cancelled Potassium Cancelled Chloride Cancelled Carbon Dioxide Cancelled Anion Gap Cancelled BUN Cancelled Creatinine Cancelled GFR Calculation Cancelled Glucose Cancelled Calculated Osmolal ity Cancelled Lactic Acid Calcium Cancelled Total Bilirubin Cancelled AST Cancelled ALT Cancelled Alkaline Phosphata se Cancelled C-Reactive Protein Cancelled NT-Pro-B Natriuret Pep Cancelled Total Protein Cancelled Albumin Cancelled Globulin Cancelled Procalcitonin Cancelled Influenza Type A A g (Negative) Influenza Type B A g (Negative) SARS-CoV-2 Ag (Rap id) (Negative) 11/09/20 11/09/20 11/09/20 Range/Units 11:40 11:40 11:40 WBC (4.0-10.0) 10^3/ uL RBC (4.1-5.3) 10^6/u L Hgb (11.7-16.6) g/dL Hct (42.0-52.0) % MCV (80-94) fL MCH (28.0-34.0) pg MCHC (30.0-36.0) g/dL RDW (12.1-15.1) % Plt Count (130-400) 10^3/c mm MPV (7.4-10.4) fL Neut % (Auto) % Lymph % (Auto) % Comal % (Auto) % Eos % (Auto) % Baso % (Auto) % Neut # (Auto) (1.8-7.7) 10^3/u L Lymph # (Auto) (0.8-4.8) 10^3/u L Comal # (Auto) (0.2-0.9) 10^3/u L Eos # (Auto) (0.0-0.8) 10^3/u L Baso # (Auto) (0.0-0.1) 10^3/u L Nucleated RBC % (a uto) % Nucleated RBCs # /100WBC D-Dimer (0-0.59) ug/mIFE U Specimen Type Sample Site ABG pH (7.35-7.45) ABG pCO2 (35-45) mmHg ABG pO2 (80.0-100.0) mmH g ABG HCO3 (22-26) mmol/L ABG Base Excess (-2.0-2.0) mmol/ L Syed Test Hematocrit (42-52) % O2 Delivery Device Hand Or Machine Paster ID Sodium Potassium Chloride Carbon Dioxide Anion Gap BUN Creatinine GFR Calculation Glucose Calculated Osmolal ity Lactic Acid Cancelled Calcium Total Bilirubin AST ALT Alkaline Phosphata se C-Reactive Protein NT-Pro-B Natriuret Pep Total Protein Albumin Globulin Procalcitonin Influenza Type A A g Negative (Negative) Influenza Type B A g Negative (Negative) SARS-CoV-2 Ag (Rap id) Positive H (Negative) 11/09/20 11/09/20 11/09/20 Range/Units 12:20 12:20 12:20 WBC (4.0-10.0) 10^3/ uL RBC (4.1-5.3) 10^6/u L Hgb (11.7-16.6) g/dL Hct (42.0-52.0) % MCV (80-94) fL MCH (28.0-34.0) pg MCHC (30.0-36.0) g/dL RDW (12.1-15.1) % Plt Count (130-400) 10^3/c mm MPV (7.4-10.4) fL Neut % (Auto) % Lymph % (Auto) % Com[place] % (Auto) % Eos % (Auto) % Baso % (Auto) % Neut # (Auto) (1.8-7.7) 10^3/u L Lymph # (Auto) (0.8-4.8) 10^3/u L Comal # (Auto) (0.2-0.9) 10^3/u L Eos # (Auto) (0.0-0.8) 10^3/u L Baso # (Auto) (0.0-0.1) 10^3/u L Nucleated RBC % (a uto) % Nucleated RBCs # /100WBC D-Dimer 0.85 H (0-0.59) ug/mIFE U Specimen Type Sample Site ABG pH (7.35-7.45) ABG pCO2 (35-45) mmHg ABG pO2 (80.0-100.0) mmH g ABG HCO3 (22-26) mmol/L ABG Base Excess (-2.0-2.0) mmol/ L Syed Test Hematocrit (42-52) % O2 Delivery Device Hand Or Machine Paster ID Sodium 120 L Potassium 4.6 Chloride 89 L Carbon Dioxide 23 Anion Gap 12.6 BUN 11 Creatinine 0.5 L GFR Calculation Not Reportable Glucose 161 H Calculated Osmolal ity 253 L Lactic Acid 1.1 Calcium 8.8 Total Bilirubin 0.3 AST 28 ALT 20 Alkaline Phosphata se 77 C-Reactive Protein 66.0 H NT-Pro-B Natriuret Pep 191 Total Protein 6.6 Albumin 3.6 Globulin 3.0 Procalcitonin 0.19 Influenza Type A A g (Negative) Influenza Type B A g (Negative) SARS-CoV-2 Ag (Rap id) (Negative) Imaging Data: CTA Chest: Attestation: I personally reviewed and interpreted this imaging study as follows: Radiologist's impression: [address] [id number] Scan ReportSigned Patient: Marbin Funez #: [id number]: 5Acct#:[id number]/Sex: 75 / MADM Date: 11/09/20Loc: ERRoom/Bed:Attending Dr: Ordering Provider/Ordering MD: Napoleon Alonzo [place] [facility] [place] of Service: 11/09/20 Procedure(s): CT angio chest PE protcl [id number] Accession Number(s): [id number] Report Number: [id number] WS: [id number] CTA OF THE CHEST WITH PULMONARY EMBOLISM PROTOCOL TECHNIQUE: High-resolution contrast enhanced CTA of the chest with coronal and sagittal reformatted images with pulmonary embolism protocol. MIP images are also reviewed. CLINICAL INFORMATION: SOB, h/o dvt, active cancer COMPARISON: None. DLP: 617.[address] scans at [facility] use at least one of these dose optimization techniques: automated exposure control; mA and/or kV adjustment per patient size (includes targeted exams where dose is matched to clinical indication); or iterative reconstruction. FINDINGS: Moderate chronic emphysematous changes. Small right pleural effusion. Normal caliber thoracic aorta. Aortic calcification. Proximal main pulmonary arteries are normal. Segmental and subsegmental pulmonary arteries appear normal. No filling defects to indicate pulmonary embolus. Volume loss in the right upper lobe with partial opacification along the right hilum and supra hilum. Findings likely due to radiation therapy and/or postobstructive pneumonia. Fibrotic appearing changes the right upper lobe with pleural thickening. Bronchovascular thickening along the right hilum. A few scattered hazy groundglass infiltrates in the left upper lobe and left lower lobe in a subpleural distribution. Adrenal glands are normal. Small esophageal hiatal hernia. Thoracic kyphosis. CT/CT angio chest PE protcl [id number] IMPRESSION: 1. No evidence of pulmonary embolus. 2. Treatment-related changes with bronchovascular soft tissue thickening along the right hilum and supra hilum. Volume loss right upper lobe. 3. Partial opacification in the right upper lobe medially along the mediastinum likely due to radiation therapy and/or postobstructive pneumonia. Recommend follow-up to resolution. 4. Small right pleural effusion. 5. A few hazy ground glass infiltrates in the left lung is nonspecific but can be seen with COVID19 pneumonia. Dictated By:Asad Olson MDSigned By:Asad Olson MDSigned Date/Time:11/09/20 1440DD/ 1425 CXR: Attestation: I personally reviewed and interpreted this imaging study as follows: Radiologist's impression: [address] [address]PRfi ReportSigned Patient: Marbin Funez #: [id number]: 5Acct#:[id number]/Sex: 75 / MADM Date: 11/09/20Loc: ERRoom/Bed:Attending Dr: Ordering Provider/Ordering MD: Napoleon Alonzo [place], [facility] [place] of Service: 11/09/20 Procedure(s): XR chest 1V portable [id number] Accession Number(s): [id number] Report Number: [id number] PROCEDURE INFORMATION: Exam: XR Chest Exam date and time: 11/09/2020 11:25 AM Age: 75 years old Clinical indication: Shortness of breath; Prior surgery; Surgery type: Port; Patient HX: SOB since chemo in 07/05, cp fever, lung cancer TECHNIQUE: Imaging protocol: XR of the chest. Views: 1 view. COMPARISON: CR XR chest 1V portable [id number] 07/07/2020 9:55 AM FINDINGS: Tubes, catheters and devices: A MediPort catheter is present in satisfactory position with the tip projecting in the SVC. Lungs: There is worsening right lung volume loss with prominent increasing atelectasis and consolidation in the right upper lobe. This may be due to postradiation therapy changes. Scattered fibrotic changes are present throughout the left lung similar to old studies. Pleural spaces: Unremarkable. No pleural effusion. No pneumothorax. Heart/Mediastinum: Unremarkable. No cardiomegaly. Bones/joints: Unremarkable. XR/XR chest 1V portable [id number] IMPRESSION: There is worsening volume loss in the right lung with prominent atelectasis and consolidation in the right upper lobe. This may be secondary to radiation therapy. Superimposed pneumonia in the right upper lobe cannot be excluded. Dictated By:Ricky Calles By:Ricky Calles Date/Time:11/09/20 1350DD/ 1349 EKG Data: EKG 1: Attestation: I personally reviewed and interpreted this EKG as follows: EKG interpretation date: 11/09/20 EKG interpretation time: 11:36 Prior EKG tracings: not available for review Interpretation: Sinus tachycardia. Heart rate [address] changes. EKG 2: Attestation: I personally reviewed and interpreted this EKG as follows: EKG interpretation date: 11/09/20 EKG interpretation time: 15:06 Prior EKG tracings: available for review Interpretation: Sinus rhythm. Heart rates [address] changes. COVID Results: SARS-CoV-2 Antigen (Rapid) Positive (Negative) H 11/09/20 11:40 11/09/20 SARS-CoV-2 RNA (RT-PCR) Not detected (NOT DETECTED) 09/04/20 10:30 09/04/20 Nasal/Oral Coronavirus 2019 PCR Not detected 09/17/20 11:20 09/17/20 Discharge Plan Discharge Patient Disposition: Home Clinical Impression: Pneumonia due to 2019 novel coronavirus Condition: Stable Prescriptions: Continued cholecalciferol (vitamin D3) 25 mcg (1,000 unit) capsule 25 mcg PO DAILY@0730 RF: 0 acarbose 100 mg tablet 100 mg PO TID@0730,1200,1800 RF: 0 metformin 850 mg tablet 850 mg PO TID@0730,1200,1800 RF: 0 Hold Instructions: Resume on 09/12/20. lisinopril 40 mg tablet 20 mg PO DAILY@0730 RF: 0 aspirin 81 mg tablet,delayed release (DR/EC) 81 mg PO DAILY@12 RF: 0 atorvastatin 80 mg tablet 40 mg PO DAILY@1800 RF: 0 Centrum Silver 0.4-300-250 mg-mcg-mcg tablet 1 tab PO DAILY@0730 RF: 0 insulin aspart U-100 [Novolog Flexpen U-100 Insulin] 100 unit/mL (3 mL) insulin pen 5 unit SUBCUT TID RF: 0 insulin glargine 100 unit/mL (3 mL) insulin pen 35 - 45 unit SUBCUT DAILY@22 RF: 0 (DME) Sole supports Qty: 1 RF: 0 (DME) Custom orthotics See Rx Instructions .Route .MEDSUPPLY Qty: 1 RF: 0 Eliquis 2.5 mg tablet 2.5 mg PO BID Qty: 60 RF: 3 cetirizine 10 mg Tablet 10 mg PO DAILY RF: 0 isosorbide mononitrate 30 mg Tablet Extended Release 24 Hr 30 mg PO DAILY@0800 RF: 0 clopidogrel 75 mg Tablet 75 mg PO DAILY RF: 0 polyethylene glycol 3350 17 gram/dose Powder 17 g PO DAILY RF: 0 fluticasone propionate 50 mcg/actuation Anderson,Suspension 1 spray INTRANASAL DAILY PRN (Reason: Allergy Symptoms) RF: 0 olodaterol 2.5 mcg/actuation Mist 2 inh INHALATION DAILY@0800 RF: 0 cilostazol 50 mg Tablet 25 mg PO BID@0730,1800 RF: 0 acetaminophen [Tylenol Extra Strength] 500 mg Tablet 1,000 mg PO PRN RF: 0 hydrochlorothiazide 25 mg Tablet 25 mg PO DAILY@0730 RF: 0 ibuprofen 400 mg tablet 400 mg PO Q8H PRN (Reason: Leg pain) Qty: 30 RF: 0 Hold Instructions: Resume on 10/05/20. Discharge Orders: Discharge ED (Routine); Ordered 11/09/20 Ordered By: Napoleon Alonzo Referrals: Shavonne Biswas MD [Primary Care Provider] - 1-3 days Discharge Diet: Usual diet Discharge Activity: Increase activity as tolerated Patient Instructions: Viral Pneumonia (ED) Activity Restrictions/Additional Instructions: Return for any new or worsening symptoms. Follow-up with your primary care provider within 3 days via telemedicine. Continue your home medications. Monitor your oxygen levels via a pulse oximeter. If your oxygen levels dropped below 90% you need to return to be evaluated in the emergency department. You received the monoclonal antibody infusion which should help prevent worsening of your symptoms and to help prevent you from being sick enough to be admitted to the hospital. You received the one called Kristy Coding Level of Care Code ED [employer] for [facility] Fwd Exam Comprehensive
[2020-11-09 11:51] VITALS: BP 125/74; PULSE 99; RESP 16; O2SAT 92
[2020-11-09 11:56] LABS: Basophils % 0.3 %; Eosinophils # 0.1 10^3/uL (0.0-0.8); Hematocrit 36.7 % (42.0-52.0); Hemoglobin 11.8 g/dL (11.7-16.6); Lymphocytes # 0.7 10^3/uL (0.8-4.8); Mean Corpuscular HGB Conc 32.2 g/dL (30.0-36.0); Mean Corpuscular Hemoglobin 27.5 pg (28.0-34.0); Mean Corpuscular Volume 85.5 fL (80-94); Mean Platelet Volume 8.7 fL (7.4-10.4); Monocytes # 0.6 10^3/uL (0.2-0.9); Monocytes % 9.9 %; Neutrophils # 4.92 10^3/uL (1.8-7.7); Neutrophils % 76.3 %; Nucleated Red Blood Cells % 0 %; Platelet Count 285 10^3/cmm (130-400); Red Blood Count 4.29 10^6/uL (4.1-5.3); White Blood Count 6.5 10^3/uL (4.0-10.0)
[2020-11-09 11:58] LABS: ABG PCO2 36.7 mmHg (35-45); ABG PH Result 7.45 (7.35-7.45); Arterial Blood Gas Hematocrit 34.8 % (42-52); Base Excess ABG 1.6 mmol/L (-2.0-2.0); Blood Gas Allen Test Pos; Blood Gas Sample Type Arterial; HCO3 ABG 25.5 mmol/L (22-26); PO2 ABG 66.6 mmHg (80.0-100.0)
[2020-11-09 11:59] LABS: Blood Gas Operator Identificat GD; Blood Gas Sample Site Radial, left; Oxygen Device ROOM AIR
[2020-11-09] MEDS: sodium chloride 0.9% 1,000 ML 999 ML IV (11:59)
[2020-11-09 12:24] LABS: Influenza A by IFA Negative (Negative); Influenza B by IFA Negative (Negative)
[2020-11-09 12:25] LABS: SARS Covid-2 Antigen Positive (Negative)
[2020-11-09 12:51] LABS: D Dimer 0.85 ug/mIFEU (0-0.59)
[2020-11-09 12:52] LABS: Lactic Sepsis W/Reflex 1.1 mmol/L (0.5-2.2)
[2020-11-09 13:02] LABS: NT Pro B Type Natriuretic Pept 191 pg/mL (0-450); Procalcitonin 0.19 ng/mL (0-0.5)
[2020-11-09 13:17] LABS: Alanine Aminotransferase 20 U/L (0-41); Albumin Level 3.6 g/dL (3.5-5.2); Alkaline Phosphatase 77 IU/L (40-130); Aspartate Amino Transferase 28 U/L (0-40); Blood Urea Nitrogen 11 mg/dL (8-23); Calcium 8.8 mg/dL (8.5-10.5); Carbon Dioxide 23 mmol/L (22-29); Chloride 89 mmol/L (98-107); Glucose 161 mg/dL (65-115); Total Bilirubin 0.3 mg/dL (0.15-1.2); Total Protein 6.6 g/dL (6.6-8.7)
[2020-11-09 13:26] LABS: Anion Gap 12.6 (5-19); Osmolality Calculated 253 mOsm/kg (285-295); Potassium 4.6 mmol/L (3.5-5.1); Sodium 120 mmol/L (136-145)
[2020-11-09 14:23] VITALS: BP 123/72; PULSE 96; RESP 20; O2SAT 97
[2020-11-09] MEDS: iohexol 350 mg/mL 100 mL Btl IV (14:24)
--- NOTE | 2020-11-09 14:52 | ECG_ITS ---
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 Measurements Intervals Vickery Rate: 90 P: 52 CO: 169 QRS: 57 QRSD: 96 T: 59 QT: 361 QTc: 442 Interpretive Statements SINUS RHYTHM LOW QRS VOLTAGE IN PRECORDIAL LEADS [QRS DEFLECTION < 1.0 mV IN CHEST LEADS] Compared to ECG 07/07/2020 10:07:22 Low QRS voltage now present Electronically Signed On 11-09-2020 21:17:34 CDT by Sharif Arias M.D. [id number]
--- NOTE | 2020-11-09 15:09 | ECG_ITS ---
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 Measurements Intervals Mccune Rate: 101 P: 50 MD: 166 QRS: 66 QRSD: 90 T: 70 QT: 322 QTc: 418 Interpretive Statements SINUS TACHYCARDIA WITH OCCASIONAL ECTOPIC PREMATURE COMPLEXES MINIMAL ST DEPRESSION [0.025+ mV ST DEPRESSION] ABNORMAL RHYTHM ECG Compared to ECG 07/07/2020 10:07:22 ST (T wave) deviation now present Sinus rhythm no longer present Electronically Signed On 11-09-2020 21:16:53 CDT by Sharif Arias M.D. [id number] f
[2020-11-11 06:20] LABS: Coronavirus Test Green County Detected
--- NOTE | 2020-11-11 11:51 | PC.NURSE ---
PCR results in-Pt is not contacted/notified because Pt is already aware of + Covid results
== END 2020-11-09 16:07 | disposition home or self-care (01) ==
PROVIDERS: Emergency Provider Family Medicine; PCP Family Medicine
DX: U07.1 COVID-19 (principal); J12.82 Pneumonia due to coronavirus disease 2019; Z79.01 Long term (current) use of anticoagulants; Z79.02 Long term (current) use of antithrombotics/antiplatelets; Z79.82 Long term (current) use of aspirin; Z79.4 Long term (current) use of insulin; Z85.51 Personal history of malignant neoplasm of bladder; Z87.891 Personal history of nicotine dependence; E11.42 Type 2 diabetes mellitus with diabetic polyneuropathy; I25.10 Atherosclerotic heart disease of native coronary artery without angina pectoris; Z79.899 Other long term (current) drug therapy
CPT/HCPCS: 36415; 36600; 71045; 71275; 80053; 82803; 83605; 83880; 84145; 85025; 85378; 86140; 87040; 87426; 87635; 87804; 93005; 96365; 99284; J7030; J7050; Q9967

== ENCOUNTER 2020-11-20 05:55 | Outpatient (CLI) | payer OTHER, MEDICARE, SELFPAY ==
--- NOTE | 2020-12-03 17:53 | ONC FU_ITS ---
Dr. Campbell follow up note Patient: Marbin Funez V Unit #: [id number]: [id number] Dicatated By: Nuno Campbell M.D.Date of Visit:Nov 20, 2020 Onc Med Follow-up/Prog Note History of Present Illness: Mr. Funez is a 75-year-old gentleman with a history of COPD. He went to [facility] on November 26, 2019 with 3-day history of right flank pain. He reported his pain was radiating to with right pelvis. A CT scan of abdomen pelvis was done on November 26, 2019 which showed no urinary tract calculus or obstruction normal appendix; calcified right lower lobe pulmonary granuloma. On January 09, 2020, he had a chest x-ray done for chest pain and found to have right upper lung mass. He subsequently underwent CT scan of chest which confirmed right upper lobe lung mass measuring 2.7 x 3.1 cm. The lesion was subpleural and also showed mediastinal and hilar lymphadenopathy. He underwent transthoracic needle biopsy on February 06, 2020. He also underwent bronchoscopy and transbronchial needle aspiration of station 4R and 10 R lymph node. 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 Immunohistochemistry were negative for TTF-1, Napsin and p63 and CK 20 so based on this immunoprofile tumor was not overtly designated as a lung primary. Mr Funez has history of coronary artery disease status post stent placement and also has peripheral vascular disease. Patient denies any hemoptysis or hematemesis, denies any weight loss, denies any poor appetite,. Denies any headaches blurred vision or double vision. As per patient he has history of bladder cancer, diagnosed in 2007 or 8 at that time tumor was removed and he was given intravesical therapy. And followed by yearly exam until recently with no evidence of recurrence of disease. 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 He was evaluated by a vascular surgeon for intervention stenting or arterial bypass , As per patient bilateral femoral artery stenting was done on April 15, 2020 And on same day he underwent coronary artery stenting done, tolerated procedure very well and he was started on Plavix and aspirin. PET/CT scan from March 10, 2020 showed marked increase of metabolic activity in the anterior right upper lung lobe size about 2.6 x 3.2 cm consistent with neoplasia and there is extensive mediastinal lymph node involvement of anterior/prevascular lymph nodes, right paratracheal, precarinal with an index lesion measuring 1.4 x 2.0 cm with SUV of 6.75 and right hilar lymph node. No evidence of distant metastatic disease MRI scan of the brain done on April 06, 2020 showed no evidence of metastatic disease Tumor marker CA 19???9 was 18.37, PSA 0.673, and CEA 138.7., Patient had ENT evaluation done which shows no evidence of head or neck cancer EGD Was done on April 01, 2020, it was normal exam, As per patient he had colonoscopy done last year and it was unremarkable Mr Funez was offered treatment with concurrent chemoradiation and started with weekly carboplatin/Taxol on May 11, 2020. He has tolerated it well but has required growth factor support for neutropenia. He completed combined chemoradiation therapy on June 23, 2020. Follow-up PET/CT scan done on July 25, 2020 showed right upper lobe mass measured 2.3 x 1.8 cm, with SUV of 3.2 compared to 2.6 x 3.[address] PET scan done on March 10, 2020. The right upper lobe hilar lymph node had a SUV of 4.5. Other scattered mediastinal lymph nodes are subcentimeter in size and FDG negative no evidence of distant mets. Mr Funez started on maintenance durvalumab every 2 weeks for 12 months on July 28, 2020. He had follow-up arterial duplex of the right lower extremity on August 12, 2019 through the ER. He presented with pain from his knee to his ankle on the right leg. He has a history of stents in his groin in November 2019 per his report. The arterial Doppler did report features of high-grade stenosis in the distal superficial femoral artery on the right side. There are abnormal Doppler waveforms suggestive of collateral filling of the popliteal and infrapopliteal vessels. Severely diminished resting KATHERYN 0.4 on the right side. There were no similar previous studies available for comparison. Mr. Funez does have follow-up with cardiology regarding these findings. He presented for followup with complaints of right leg pain. 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 Mr Funez reports that his vascular surgeon informed him to continue with immunotherapy while undergoing management for peripheral vascular disease. His immunotherapy been placed on hold from his first cycle on July 28, 2020 but he did resume it on October 15, 2020.Next dose was held because of patient developed Covid infection required monoclonal antibody cocktail infusion And resumed his biweekly durvalumab on December 03, 2020 Came for follow-up, patient was recently diagnosed with Covid and developed progressive shortness of breath and went to hospital where he was treated with monoclonal antibody cocktail, his also developed Covid infection but did not require any intervention as per patient he been having right posterior chest wall pain but denies any hemoptysis or hematemesis denies any fever chills denies any nausea or vomiting denies any trauma to the chest Medications: Acarbose 1 Tablet (of 100 mg) Oral t.i.d., Aspirin 1 Tablet (of 81 mg) Tablet, enteric coated Oral daily, Atorvastatin Calcium 1 Tablet (of 80 mg) Oral daily, Cetirizine HCl 1 Tablet (of 10 mg) Oral daily, Cholecalciferol 1 Capsule (of 25 mcg ) Oral daily, Cilostazol 1 Tablet (of 50 mg) Oral b.i.d., Clopidogrel Bisulfate 1 Tablet (of 75 mg) Oral daily, Flonase Suspension Nasal, Furosemide 1 Tablet (of 20 mg) Oral daily, Insulin Aspart Subcutaneous, Insulin Glargine 10 Units (of 100 Units/mL) Subcutaneous daily, Isosorbide Mononitrate ER 1 Tablet (of 30 mg) Tablet SR 24 HR Oral daily, Lisinopril 1 Tablet (of 40 mg) Oral daily, metFORMIN HCl 1 Tablet (of 850 mg) Oral t.i.d., Multivitamin 1 Tablet Oral daily, Naproxen 1 Tablet (of 250 mg) Oral q 8 hours PRN, Stiolto Respimat Aerosol, solution Inhalation Allergies: No Known Allergies. Review of Systems: Review of Systems is not available for this patient. Vital Signs: Performed on Nov 20, 2020 11:33 Height - 70.00 in Weight - 181.4 lbs (LOW) BSA - 2.00 sq.m BMI - 26.03 Temperature - 98.6 F Pulse - 106 /min (HIGH) Respiration - 18 /min BP - 113/63 mm(hg) O2 Sat - 94 % (LOW) Pain - 5 Fatigue - 7 Performance Status: 1 - No physically strenuous activity, but ambulatory and able to carry out light or sedentary work (e.g. office work, light house work). (ECOG) Physical Examination: ENMT - No mouth sores, no thrush, no jaundice, Respiratory - Lungs are clear to auscultation, Cardiovascular - Regular rate and rhythm of heart, Abdomen - Soft, bowel sounds present, Extremities - No visible edema. Lab/Imaging: Test performed on Oct 29, 2020 13:15 Sodium 124 mmol/L Potassium 5.0 mmol/L Chloride 90 mmol/L CO2 25 mmol/L Anion Gap 14.0 BUN 9 mg/dL Creatinine 0.4 mg/dL Cr Clearance (Est) 184.6700 mL/min Glucose 180 mg/dL Osmolality - Calculated 261 mOsm/kg Calcium 8.9 mg/dL Protein, Total 6.3 g/dL Albumin 3.6 g/dL Globulin 2.7 g/dL Bilirubin, Total 0.2 mg/dL ALT (SGPT) 17 U/L AST (SGOT) 14 U/L Alkaline Phosphatase 74 IU/L WBC 8.9 10 3/uL RBC 3.77 10 6/uL HGB 10.7 g/dL HCT 33.9 % MCV 89.9 fL MCH 28.4 pg MCHC 31.6 g/dL RDW 15.9 % Platelet Count 320 10 3/cmm MPV 8.6 fL Neutrophils 6.10 10 3/uL Lymphocytes 0.9 10 3/uL Monocytes 1.0 10 3/uL Eosinophils 0.8 10 3/uL Basophils 0.1 10 3/uL Neutrophil % 68.3 % Lymphocyte % 10.2 % Monocyte % 11.6 % Eosinophil % 8.8 % Basophils % 0.8 % NRBC % 0 % Test performed on Jun 19, 2020 08:40 CBC Slide Review Slide Review Perform SLIDE REVIEW AGREES WITH AUTOMATED RESULTS NEUTROPHIL BEBETO REINA CELLS Test performed on May 27, 2020 14:45 SARS-CoV-2 RNA (COVID-19) NOT DETECTED A Not Detected (negative) test result for this test means that SARS- CoV-2 RNA was not present in the specimen above the limit of detection. A negative result does not rule out the possibility of COVID-19 and should not be used as the sole basis for treatment or patient management decisions. If COVID-19 is still suspected, based on exposure history together with other clinical findings, re-testing should be considered in consultation with public health authorities. Laboratory test results should always be considered in the context of clinical observations and epidemiological data in making a final diagnosis and patient management decisions. Please review the Fact Sheets and FDA authorized labeling available for health care providers and patients using the following websites: [email or web address]/fact-sheet2 [email or web address]/[email or web address]/[email or web address]/ fact-sheet2 This test has been authorized by the FDA under an Emergency Use Authorization (EUA) for use by authorized laboratories. Due to the current public health emergency, [facility] is receiving a high volume of samples from a wide variety of swabs and media for COVID-19 testing. In order to serve patients during this public health crisis, samples from appropriate clinical sources are being tested. Negative test results derived from specimens received in non-commercially manufactured viral collection and transport media, or in media and sample collection kits not yet authorized by FDA for COVID-19 testing should be cautiously evaluated and the patient potentially subjected to extra precautions such as additional clinical monitoring, including collection of an additional specimen. Methodology: Nucleic Acid Amplification Test (NAAT) includes RT-PCR or TMA Additional information about COVID-19 can be found at the [facility] website: [email or web address]. 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 CT scan of abdomen pelvis done in November 2019 showed no evidence of metastatic disease ENT, EGD evaluation showed no evidence of head and neck cancer, as per Patient, he had colonoscopy done last year it was unremarkable tumor marker CA 19???9 18.37 CEA 138.[address] PET scan done on March 10, 2020 showed right upper lobe mass measuring 2.6 x 3.2 cm with SUV of 10.30, extensive mediastinal lymphadenopathy along with right hilar lymph node. No distant metastatic disease a single rib, right 10th rib laterally demonstrated on heparin fracture with callus formation .MRI scan of the head done on April 06, 2020 showed no evidence of metastatic disease, Clinical stage IIIa Started on combined chemoradiation with weekly carboplatin/Taxol on May 11, 2020 Completed on June 23, 2020 Diabetes and related complication ? diabetic neuropathyOr vascular as patient has been severe peripheral vascular disease involving bilateral feet Peripheral vascular disease,Status post bilateral femoral arterial stenting Done on April 15, 2020 CAD status post stent placement.Due to progressive coronary artery disease coronary artery stenting Done on April 15, 2020 Plan: Discussed with patient regarding his concern about posterior chest wall pain which could be due to musculoskeletal or pulmonary inflammation or infection, at this point, will hold his scheduled immunotherapy dose and consider chest x-ray and right rib films and patient will return to clinic after chest x-ray and rib films done for further discussion. In the meantime patient was advised if there is a worsening of symptoms he need to go to hospital for evaluation otherwise we will see him back after chest x-ray and rib films done with CBC and CMP Signed By: Nuno Campbell M.D. <<Signature on File>>
== END 2020-11-20 05:56 | disposition home or self-care (01) ==
LOC: ONCMED 05:57
PROVIDERS: PCP Family Medicine; Visit Provider Internal Medicine Hematology & Oncology
DX: C34.11 Malignant neoplasm of upper lobe, right bronchus or lung (principal); R59.1 Generalized enlarged lymph nodes; Z92.21 Personal history of antineoplastic chemotherapy; E11.9 Type 2 diabetes mellitus without complications; Z95.828 Presence of other vascular implants and grafts; I25.10 Atherosclerotic heart disease of native coronary artery without angina pectoris; Z95.1 Presence of aortocoronary bypass graft; Z92.3 Personal history of irradiation; R07.89 Other chest pain; Z79.899 Other long term (current) drug therapy
CPT/HCPCS: 99214

== ENCOUNTER 2020-12-02 13:58 | Outpatient (CLI) | payer OTHER, MEDICARE, SELFPAY ==
--- NOTE | 2020-12-02 15:18 | XR_ITS ---
WS: [id number] PA and lateral chest, 12/02/2020 Clinical Data: COUGH Comparison: Portable chest, 11/09/2020. Findings: The right upper lobe fibrosis with volume loss remains the same. There is minimal patchy op acity in the right midlung and also in the left upper lobe which have increased slightly compared to the previous chest x-ray. The diaphragms show flattening with elevation on the right. There is a shif t of the heart and mediastinum from left to right unchanged. The heart size is normal. The left Port- A-Cath remains in position. No new masses are seen. XR/XR chest 2V* [id number] Impression: 1. No change in right upper lobe fibrosis with volume loss. 2. Development of minimal patchy opacities in right mid lung and left upper lob e and recommend follow-up chest x-ray in 2-3 days.
--- NOTE | 2020-12-02 15:18 | XR_ITS ---
WS: [id number] Right rib detail, 2 views, 12/02/2020 Clinical Data: POSTERIOR MID RIBCAGE TENDERNESS Comparison: PA and lateral chest, 12/02/2020 Findings: No rib destruction or rib fractures are seen. There is no pneumothorax or subcutaneous emphysema. The right upper lobe fibrosis is noted. The right chest soft tissue is unremarkable. XR/XR ribs RT 2V* [id number] Impression: Negative right rib detail.
[2020-12-02 15:51] LABS: Basophils # 0.1 10^3/uL (0.0-0.1); Basophils % 0.9 %; Eosinophils # 0.6 10^3/uL (0.0-0.8); Eosinophils % 6.8 %; Hematocrit 31.1 % (42.0-52.0); Hemoglobin 9.8 g/dL (11.7-16.6); Lymphocytes # 1.2 10^3/uL (0.8-4.8); Lymphocytes % 15.1 %; Mean Corpuscular HGB Conc 31.5 g/dL (30.0-36.0); Mean Corpuscular Hemoglobin 26.7 pg (28.0-34.0); Mean Corpuscular Volume 84.7 fL (80-94); Mean Platelet Volume 9.1 fL (7.4-10.4); Monocytes % 12.2 %; Neutrophils # 5.27 10^3/uL (1.8-7.7); Neutrophils % 64.1 %; Nucleated Red Blood Cells % 0 %; Platelet Count 407 10^3/cmm (130-400); Red Blood Count 3.67 10^6/uL (4.1-5.3); Red Cell Distribution Width 16.7 % (12.1-15.1); White Blood Count 8.2 10^3/uL (4.0-10.0)
[2020-12-02 16:17] LABS: Alanine Aminotransferase 31 U/L (0-41); Albumin Level 3.5 g/dL (3.5-5.2); Alkaline Phosphatase 72 IU/L (40-130); Anion Gap 15.7 (5-19); Aspartate Amino Transferase 19 U/L (0-40); Blood Urea Nitrogen 9 mg/dL (8-23); Calcium 9.2 mg/dL (8.5-10.5); Carbon Dioxide 24 mmol/L (22-29); Chloride 95 mmol/L (98-107); Globulin 2.7 g/dL (1.3-4.6); Glucose 71 mg/dL (65-115); Osmolality Calculated 267 mOsm/kg (285-295); Potassium 4.7 mmol/L (3.5-5.1); Sodium 130 mmol/L (136-145); Total Bilirubin 0.2 mg/dL (0.15-1.2); Total Protein 6.2 g/dL (6.6-8.7)
== END 2020-12-02 13:59 | disposition home or self-care (01) ==
PROVIDERS: PCP Family Medicine; Visit Provider Internal Medicine Hematology & Oncology
DX: C34.11 Malignant neoplasm of upper lobe, right bronchus or lung (principal)
CPT/HCPCS: 36591; 71046; 71100; 80053; 85025

== ENCOUNTER 2020-12-03 06:05 | Outpatient (CLI) | payer OTHER, MEDICARE, SELFPAY ==
--- NOTE | 2020-12-03 17:45 | ONC FU_ITS ---
Dr. Campbell follow up note Patient: Marbin Funez V Unit #: [id number]: [id number] Dicatated By: Nuno Campbell M.D.Date of Visit:Dec 03, 2020 Onc Med Follow-up/Prog Note History of Present Illness: Mr. Funez is a 75-year-old gentleman with a history of COPD. He went to [facility] on November 26, 2019 with 3-day history of right flank pain. He reported his pain was radiating to with right pelvis. A CT scan of abdomen pelvis was done on November 26, 2019 which showed no urinary tract calculus or obstruction normal appendix; calcified right lower lobe pulmonary granuloma. On January 09, 2020, he had a chest x-ray done for chest pain and found to have right upper lung mass. He subsequently underwent CT scan of chest which confirmed right upper lobe lung mass measuring 2.7 x 3.1 cm. The lesion was subpleural and also showed mediastinal and hilar lymphadenopathy. He underwent transthoracic needle biopsy on February 06, 2020. He also underwent bronchoscopy and transbronchial needle aspiration of station 4R and 10 R lymph node. 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 Immunohistochemistry were negative for TTF-1, Napsin and p63 and CK 20 so based on this immunoprofile tumor was not overtly designated as a lung primary. Mr Funez has history of coronary artery disease status post stent placement and also has peripheral vascular disease. Patient denies any hemoptysis or hematemesis, denies any weight loss, denies any poor appetite,. Denies any headaches blurred vision or double vision. As per patient he has history of bladder cancer, diagnosed in 2007 or 8 at that time tumor was removed and he was given intravesical therapy. And followed by yearly exam until recently with no evidence of recurrence of disease. 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 He was evaluated by a vascular surgeon for intervention stenting or arterial bypass , As per patient bilateral femoral artery stenting was done on April 15, 2020 And on same day he underwent coronary artery stenting done, tolerated procedure very well and he was started on Plavix and aspirin. PET/CT scan from March 10, 2020 showed marked increase of metabolic activity in the anterior right upper lung lobe size about 2.6 x 3.2 cm consistent with neoplasia and there is extensive mediastinal lymph node involvement of anterior/prevascular lymph nodes, right paratracheal, precarinal with an index lesion measuring 1.4 x 2.0 cm with SUV of 6.75 and right hilar lymph node. No evidence of distant metastatic disease MRI scan of the brain done on April 06, 2020 showed no evidence of metastatic disease Tumor marker CA 19???9 was 18.37, PSA 0.673, and CEA 138.7., Patient had ENT evaluation done which shows no evidence of head or neck cancer EGD Was done on April 01, 2020, it was normal exam, As per patient he had colonoscopy done last year and it was unremarkable Mr Funez was offered treatment with concurrent chemoradiation and started with weekly carboplatin/Taxol on May 11, 2020. He has tolerated it well but has required growth factor support for neutropenia. He completed combined chemoradiation therapy on June 23, 2020. Follow-up PET/CT scan done on July 25, 2020 showed right upper lobe mass measured 2.3 x 1.8 cm, with SUV of 3.2 compared to 2.6 x 3.[address] PET scan done on March 10, 2020. The right upper lobe hilar lymph node had a SUV of 4.5. Other scattered mediastinal lymph nodes are subcentimeter in size and FDG negative no evidence of distant mets. Mr Funez started on maintenance durvalumab every 2 weeks for 12 months on July 28, 2020. He had follow-up arterial duplex of the right lower extremity on August 12, 2019 through the ER. He presented with pain from his knee to his ankle on the right leg. He has a history of stents in his groin in November 2019 per his report. The arterial Doppler did report features of high-grade stenosis in the distal superficial femoral artery on the right side. There are abnormal Doppler waveforms suggestive of collateral filling of the popliteal and infrapopliteal vessels. Severely diminished resting KATHERYN 0.4 on the right side. There were no similar previous studies available for comparison. Mr. Funez does have follow-up with cardiology regarding these findings. He presented for followup with complaints of right leg pain. 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 Mr Funez reports that his vascular surgeon informed him to continue with immunotherapy while undergoing management for peripheral vascular disease. His immunotherapy been placed on hold from his first cycle on July 28, 2020 but he did resume it on October 15, 2020. Came for follow-up, denies any specific complaints, but generalized weakness and fatigue and right chest wall discomfort for which he underwent chest x-ray and rib films recently which shows no abnormality otherwise no fever chills, no nausea or vomiting, no diarrhea or constipation, no hemoptysis or hematemesis. No skin rash Medications: Acarbose 1 Tablet (of 100 mg) Oral t.i.d., Aspirin 1 Tablet (of 81 mg) Tablet, enteric coated Oral daily, Atorvastatin Calcium 1 Tablet (of 80 mg) Oral daily, Cetirizine HCl 1 Tablet (of 10 mg) Oral daily, Cholecalciferol 1 Capsule (of 25 mcg ) Oral daily, Cilostazol 1 Tablet (of 50 mg) Oral b.i.d., Clopidogrel Bisulfate 1 Tablet (of 75 mg) Oral daily, Flonase Suspension Nasal, Furosemide 1 Tablet (of 20 mg) Oral daily, Insulin Aspart Subcutaneous, Insulin Glargine 10 Units (of 100 Units/mL) Subcutaneous daily, Isosorbide Mononitrate ER 1 Tablet (of 30 mg) Tablet SR 24 HR Oral daily, Lisinopril 1 Tablet (of 40 mg) Oral daily, metFORMIN HCl 1 Tablet (of 850 mg) Oral t.i.d., Multivitamin 1 Tablet Oral daily, Naproxen 1 Tablet (of 250 mg) Oral q 8 hours PRN, Stiolto Respimat Aerosol, solution Inhalation Allergies: No Known Allergies. Review of Systems: Review of Systems is not available for this patient. Vital Signs: Performed on Dec 03, 2020 16:12 Height - 70.00 in Weight - 182.2 lbs (HIGH) BSA - 2.01 sq.m BMI - 26.14 Temperature - 97.9 F (LOW) Pulse - 91 /min Respiration - 18 /min BP - 106/56 mm(hg) O2 Sat - 93 % (LOW) Pain - 5 Fatigue - 6 Performance Status: 1 - No physically strenuous activity, but ambulatory and able to carry out light or sedentary work (e.g. office work, light house work). (ECOG) Physical Examination: ENMT - No mouth sores, no thrush, no jaundice, Respiratory - Lungs are clear to auscultation, Cardiovascular - Regular rate and rhythm of heart, Abdomen - Soft, bowel sounds present, Extremities - No visible edema. Lab/Imaging: Test performed on Oct 29, 2020 13:15 Sodium 124 mmol/L Potassium 5.0 mmol/L Chloride 90 mmol/L CO2 25 mmol/L Anion Gap 14.0 BUN 9 mg/dL Creatinine 0.4 mg/dL Cr Clearance (Est) 184.6700 mL/min Glucose 180 mg/dL Osmolality - Calculated 261 mOsm/kg Calcium 8.9 mg/dL Protein, Total 6.3 g/dL Albumin 3.6 g/dL Globulin 2.7 g/dL Bilirubin, Total 0.2 mg/dL ALT (SGPT) 17 U/L AST (SGOT) 14 U/L Alkaline Phosphatase 74 IU/L WBC 8.9 10 3/uL RBC 3.77 10 6/uL HGB 10.7 g/dL HCT 33.9 % MCV 89.9 fL MCH 28.4 pg MCHC 31.6 g/dL RDW 15.9 % Platelet Count 320 10 3/cmm MPV 8.6 fL Neutrophils 6.10 10 3/uL Lymphocytes 0.9 10 3/uL Monocytes 1.0 10 3/uL Eosinophils 0.8 10 3/uL Basophils 0.1 10 3/uL Neutrophil % 68.3 % Lymphocyte % 10.2 % Monocyte % 11.6 % Eosinophil % 8.8 % Basophils % 0.8 % NRBC % 0 % Test performed on Jun 19, 2020 08:40 CBC Slide Review Slide Review Perform SLIDE REVIEW AGREES WITH AUTOMATED RESULTS NEUTROPHIL RESEMBLE PEGLER HUET CELLS 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 CT scan of abdomen pelvis done in November 2019 showed no evidence of metastatic disease ENT, EGD evaluation showed no evidence of head and neck cancer, as per Patient, he had colonoscopy done last year it was unremarkable tumor marker CA 19???9 18.37 CEA 138.[address] PET scan done on March 10, 2020 showed right upper lobe mass measuring 2.6 x 3.2 cm with SUV of 10.30, extensive mediastinal lymphadenopathy along with right hilar lymph node. No distant metastatic disease a single rib, right 10th rib laterally demonstrated on heparin fracture with callus formation .MRI scan of the head done on April 06, 2020 showed no evidence of metastatic disease, Clinical stage IIIa Started on combined chemoradiation with weekly carboplatin/Taxol on May 11, 2020 Completed on June 23, 2020 Diabetes and related complication ? diabetic neuropathyOr vascular as patient has been severe peripheral vascular disease involving bilateral feet Peripheral vascular disease,Status post bilateral femoral arterial stenting Done on April 15, 2020 CAD status post stent placement.Due to progressive coronary artery disease coronary artery stenting Done on April 15, 2020 Plan: Discussed with patient regarding his labs white blood count 8.2 hemoglobin 9.8 hematocrit 31.1 platelets 407,000 CMP within normal limit except sodium 130 Clinically, patient doing reasonably well chest x-ray and right rib films done on December 02, 2020 shows no rib destruction or fracture on the right side writes chest soft tissue is unremarkable although chest x-ray it was mentioned about development of minimal patchy opacities in the right midlung which was not seen on right rib films on same day and left upper lobe patient has no fever or cough or productive cough. At this point, will proceed with his next biweekly dose of durvalumab and then patient return to clinic in 2 weeks with CBC CMP and follow-up CT PET scan Patient was also advised to take oral iron on a daily basis rather than 3 times a week and will follow with CBC and iron studies. Signed By: Nuno Campbell M.D. <<Signature on File>>
--- NOTE | 2020-12-17 16:00 | PC.PHAR ---
DR FERNANDO WOULD LIKE TO CHANGE MR GRANT TO FLAT DOSE DURVALUMAB AT HIS NEXT SCHEDULED VISIT. I CHECKED WITH SIMON TO MAKE SURE PATIENT DOESN'T NEED NEW PA. WILL CHANGE HIS DOSE ON OR AROUND 01/07/21
== END 2020-12-03 06:06 | disposition home or self-care (01) ==
LOC: ONCMED 06:10
PROVIDERS: PCP Family Medicine; Visit Provider Internal Medicine Hematology & Oncology
DX: Z51.12 Encounter for antineoplastic immunotherapy (principal); C34.11 Malignant neoplasm of upper lobe, right bronchus or lung; R59.1 Generalized enlarged lymph nodes; E11.9 Type 2 diabetes mellitus without complications; Z95.828 Presence of other vascular implants and grafts; I25.10 Atherosclerotic heart disease of native coronary artery without angina pectoris; Z95.1 Presence of aortocoronary bypass graft; Z92.3 Personal history of irradiation
CPT/HCPCS: 96413; 99215; J7050; J9173

== ENCOUNTER → 2020-12-10 15:39 | Outpatient (BNVA) | payer OTHER, MEDICARE, SELFPAY | PROVIDERS: PCP Family Medicine; Visit Provider Internal Medicine | DX: Z09 Encounter for follow-up examination after completed treatment for conditions other than malignant neoplasm (principal); I25.10 Atherosclerotic heart disease of native coronary artery without angina pectoris; R06.02 Shortness of breath; I77.0 Arteriovenous fistula, acquired; R60.0 Localized edema; I77.9 Disorder of arteries and arterioles, unspecified; E11.42 Type 2 diabetes mellitus with diabetic polyneuropathy; C34.90 Malignant neoplasm of unspecified part of unspecified bronchus or lung | CPT/HCPCS: 80048; 83880 ==

== ENCOUNTER 2020-12-25 08:40 | Outpatient (CLI) | payer OTHER, MEDICARE, SELFPAY ==
[2020-12-25 09:26] LABS: Basophils # 0.1 10^3/uL (0.0-0.1); Basophils % 0.8 %; Eosinophils # 0.7 10^3/uL (0.0-0.8); Eosinophils % 7.9 %; Hematocrit 32.8 % (42.0-52.0); Hemoglobin 10.3 g/dL (11.7-16.6); Lymphocytes # 1.6 10^3/uL (0.8-4.8); Lymphocytes % 18.2 %; Mean Corpuscular HGB Conc 31.4 g/dL (30.0-36.0); Mean Corpuscular Hemoglobin 28.2 pg (28.0-34.0); Mean Corpuscular Volume 89.9 fl (80-94); Mean Platelet Volume 8.6 fL (7.4-10.4); Monocytes % 11.7 %; Neutrophils # 5.32 10^3/uL (1.8-7.7); Neutrophils % 61.2 %; Nucleated Red Blood Cells % 0 %; Platelet Count 317 10^3/cmm (130-400); Red Blood Count 3.65 10^6/uL (4.1-5.3); Red Cell Distribution Width 20.7 % (12.1-15.1); White Blood Count 8.7 10^3/uL (4.0-10.0)
[2020-12-25 09:51] LABS: Alanine Aminotransferase 12 U/L (0-41); Albumin Level 3.7 g/dL (3.5-5.2); Alkaline Phosphatase 61 IU/L (40-130); Anion Gap 15.4 (5-19); Aspartate Amino Transferase 13 U/L (0-40); Blood Urea Nitrogen 6 mg/dL (8-23); Calcium 8.4 mg/dL (8.5-10.5); Carbon Dioxide 22 mmol/L (22-29); Chloride 98 mmol/L (98-107); Globulin 2.3 g/dL (1.3-4.6); Glucose 109 mg/dL (65-115); Osmolality Calculated 270 mOsm/kg (285-295); Potassium 4.4 mmol/L (3.5-5.1); Sodium 131 mmol/L (136-145); Total Bilirubin 0.3 mg/dL (0.15-1.2)
--- NOTE | 2020-12-25 10:36 | ONC FU_ITS ---
Dr. Campbell follow up note Patient: Marbin Funez V Unit #: [id number]: 1945 Dicatated By: Nuno Campbell M.D.Date of Visit:Dec 25, 2020 Onc Med Follow-up/Prog Note History of Present Illness: Mr. Funez is a 75-year-old gentleman with a history of COPD. He went to [facility] on November 26, 2019 with 3-day history of right flank pain. He reported his pain was radiating to with right pelvis. A CT scan of abdomen pelvis was done on November 26, 2019 which showed no urinary tract calculus or obstruction normal appendix; calcified right lower lobe pulmonary granuloma. On January 09, 2020, he had a chest x-ray done for chest pain and found to have right upper lung mass. He subsequently underwent CT scan of chest which confirmed right upper lobe lung mass measuring 2.7 x 3.1 cm. The lesion was subpleural and also showed mediastinal and hilar lymphadenopathy. He underwent transthoracic needle biopsy on February 06, 2020. He also underwent bronchoscopy and transbronchial needle aspiration of station 4R and 10 R lymph node. 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 Immunohistochemistry were negative for TTF-1, Napsin and p63 and CK 20 so based on this immunoprofile tumor was not overtly designated as a lung primary. Mr Funez has history of coronary artery disease status post stent placement and also has peripheral vascular disease. Patient denies any hemoptysis or hematemesis, denies any weight loss, denies any poor appetite,. Denies any headaches blurred vision or double vision. As per patient he has history of bladder cancer, diagnosed in 2007 or 8 at that time tumor was removed and he was given intravesical therapy. And followed by yearly exam until recently with no evidence of recurrence of disease. 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 He was evaluated by a vascular surgeon for intervention stenting or arterial bypass , As per patient bilateral femoral artery stenting was done on April 15, 2020 And on same day he underwent coronary artery stenting done, tolerated procedure very well and he was started on Plavix and aspirin. PET/CT scan from March 10, 2020 showed marked increase of metabolic activity in the anterior right upper lung lobe size about 2.6 x 3.2 cm consistent with neoplasia and there is extensive mediastinal lymph node involvement of anterior/prevascular lymph nodes, right paratracheal, precarinal with an index lesion measuring 1.4 x 2.0 cm with SUV of 6.75 and right hilar lymph node. No evidence of distant metastatic disease MRI scan of the brain done on April 06, 2020 showed no evidence of metastatic disease Tumor marker CA 19???9 was 18.37, PSA 0.673, and CEA 138.7., Patient had ENT evaluation done which shows no evidence of head or neck cancer EGD Was done on April 01, 2020, it was normal exam, As per patient he had colonoscopy done last year and it was unremarkable Mr Funez was offered treatment with concurrent chemoradiation and started with weekly carboplatin/Taxol on May 11, 2020. He has tolerated it well but has required growth factor support for neutropenia. He completed combined chemoradiation therapy on June 23, 2020. Follow-up PET/CT scan done on July 25, 2020 showed right upper lobe mass measured 2.3 x 1.8 cm, with SUV of 3.2 compared to 2.6 x 3.[address] PET scan done on March 10, 2020. The right upper lobe hilar lymph node had a SUV of 4.5. Other scattered mediastinal lymph nodes are subcentimeter in size and FDG negative no evidence of distant mets. Mr Funez started on maintenance durvalumab every 2 weeks for 12 months on July 28, 2020. He had follow-up arterial duplex of the right lower extremity on August 12, 2019 through the ER. He presented with pain from his knee to his ankle on the right leg. He has a history of stents in his groin in November 2019 per his report. The arterial Doppler did report features of high-grade stenosis in the distal superficial femoral artery on the right side. There are abnormal Doppler waveforms suggestive of collateral filling of the popliteal and infrapopliteal vessels. Severely diminished resting KATHERYN 0.4 on the right side. There were no similar previous studies available for comparison. Mr. Funez does have follow-up with cardiology regarding these findings. He presented for followup with complaints of right leg pain. 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 Mr Funez reports that his vascular surgeon informed him to continue with immunotherapy while undergoing management for peripheral vascular disease. His immunotherapy been placed on hold from his first cycle on July 28, 2020 but he did resume it on October 15, 2020. Follow-up CT PET scan done on December 12, 2020 shows extensive right lobe atelectasis and mass seen on prior study cannot be differentiated from adjacent atelectatic lung. Low-grade, diffuse FDG activity is consistent with inflammatory uptake. Right hilar lymph node previously seen is now resolved. Right pleural effusion Came for follow-up, complaining of off and on but progressive mild hemoptysis patient is recovering from recent Covid infection. Denies any nosebleed denies any fever chills denies any nausea or vomiting, denies any diarrhea or constipation denies any headaches or blurred vision or double vision denies any shortness of breath, denies any melena or hematochezia, denies any new bony pains or headaches or blurred vision. Tolerating maintenance therapy with durvalumab well otherwise Medications: Acarbose 1 Tablet (of 100 mg) Oral t.i.d., Aspirin 1 Tablet (of 81 mg) Tablet, enteric coated Oral daily, Atorvastatin Calcium 1 Tablet (of 80 mg) Oral daily, Cetirizine HCl 1 Tablet (of 10 mg) Oral daily, Cholecalciferol 1 Capsule (of 25 mcg ) Oral daily, Cilostazol 1 Tablet (of 50 mg) Oral b.i.d., Clopidogrel Bisulfate 1 Tablet (of 75 mg) Oral daily, Flonase Suspension Nasal, Furosemide 1 Tablet (of 20 mg) Oral daily, Insulin Aspart Subcutaneous, Insulin Glargine 10 Units (of 100 Units/mL) Subcutaneous daily, Isosorbide Mononitrate ER 1 Tablet (of 30 mg) Tablet SR 24 HR Oral daily, Lisinopril 1 Tablet (of 40 mg) Oral daily, metFORMIN HCl 1 Tablet (of 850 mg) Oral t.i.d., Multivitamin 1 Tablet Oral daily, Naproxen 1 Tablet (of 250 mg) Oral q 8 hours PRN, Stiolto Respimat Aerosol, solution Inhalation Allergies: No Known Allergies. Review of Systems: Review of Systems is not available for this patient. Vital Signs: Performed on Dec 25, 2020 09:34 Height - 70.00 in Weight - 182.6 lbs (HIGH) BSA - 2.01 sq.m BMI - 26.20 Temperature - 97.6 F (LOW) Pulse - 102 /min (HIGH) Respiration - 18 /min BP - 121/63 mm(hg) O2 Sat - 96 % Pain - 0 Fatigue - 4 Performance Status: 0 - Fully active, able to carry on all predisease activities without restrictions. (ECOG) Physical Examination: ENMT - No mouth sores, no thrush, no jaundice, Respiratory - Decreased breath sound at right base otherwise clear, Cardiovascular - Regular rate and rhythm of heart, Abdomen - Soft, bowel sounds present, Extremities - No visible edema. Lab/Imaging: Test performed on Oct 29, 2020 13:15 Sodium 124 mmol/L Potassium 5.0 mmol/L Chloride 90 mmol/L CO2 25 mmol/L Anion Gap 14.0 BUN 9 mg/dL Creatinine 0.4 mg/dL Cr Clearance (Est) 184.6700 mL/min Glucose 180 mg/dL Osmolality - Calculated 261 mOsm/kg Calcium 8.9 mg/dL Protein, Total 6.3 g/dL Albumin 3.6 g/dL Globulin 2.7 g/dL Bilirubin, Total 0.2 mg/dL ALT (SGPT) 17 U/L AST (SGOT) 14 U/L Alkaline Phosphatase 74 IU/L WBC 8.9 10 3/uL RBC 3.77 10 6/uL HGB 10.7 g/dL HCT 33.9 % MCV 89.9 fL MCH 28.4 pg MCHC 31.6 g/dL RDW 15.9 % Platelet Count 320 10 3/cmm MPV 8.6 fL Neutrophils 6.10 10 3/uL Lymphocytes 0.9 10 3/uL Monocytes 1.0 10 3/uL Eosinophils 0.8 10 3/uL Basophils 0.1 10 3/uL Neutrophil % 68.3 % Lymphocyte % 10.2 % Monocyte % 11.6 % Eosinophil % 8.8 % Basophils % 0.8 % NRBC % 0 % 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 CT scan of abdomen pelvis done in November 2019 showed no evidence of metastatic disease ENT, EGD evaluation showed no evidence of head and neck cancer, as per Patient, he had colonoscopy done last year it was unremarkable tumor marker CA 19???9 18.37 CEA 138[address] PET scan done on March 10, 2020 showed right upper lobe mass measuring 2.6 x 3.2 cm with SUV of 10.30, extensive mediastinal lymphadenopathy along with right hilar lymph node. No distant metastatic disease a single rib, right 10th rib laterally demonstrated on heparin fracture with callus formation .MRI scan of the head done on April 06, 2020 showed no evidence of metastatic disease, Clinical stage IIIa Started on combined chemoradiation with weekly carboplatin/Taxol on May 11, 2020 Completed on June 23, 2020 Started on maintenance therapy with durvalumab on July 28, 2020 follow-up CT PET scan done on December 12, 2020 showed right upper lobe atelectasis and consolidation with inflammatory FDG uptake, right hilar lymph node seen on prior study is resolved. The right pleural effusion has developed. Diabetes and related complication ? diabetic neuropathyOr vascular as patient has been severe peripheral vascular disease involving bilateral feet Peripheral vascular disease,Status post bilateral femoral arterial stenting Done on April 15, 2020 CAD status post stent placement.Due to progressive coronary artery disease coronary artery stenting Done on April 15, 2020 Plan: Discussed with patient regarding his labs white blood count 8.7 hemoglobin 10.3 g compared to 9.8 on December 02, 2020 hematocrit 32.8 platelets 317,000 CMP within normal limits and follow-up CT PET scan done on December 12, 2020 showed right upper lobe atelectasis and consolidation with inflammatory FDG uptake, right hilar lymph node seen on prior study is resolved. The right pleural effusion has developed. Clinically, patient is doing well with no new signs symptom except progressive but mild off-and-on hemoptysis etiology unclear could be due to resolving bronchitis as patient was recently diagnosed with Covid infection other possibility could be from the right upper bronchus where CT PET scan shows extensive inflammatory due to radiation therapy and is PET scan also shows right pleural effusion but no evidence of disease otherwise, will refer him to pulmonology for evaluation regarding progressive off and on but mild hemoptysis and right pleural effusion As far as anemia is concerned, his hemoglobin is improving on oral iron Patient is due for his next biweekly dose of durvalumab today but patient will return to clinic on Monday for his next dose and then I will see him 2 weeks after his next dose of maintenance durvalumab, with CBC CMP. Patient was advised in case there is a worsening of hemoptysis, he need to go to hospital for evaluation Signed By: Nuno Campbell M.D. <<Signature on File>>
== END 2020-12-25 08:41 | disposition home or self-care (01) ==
LOC: ONCMED 08:43
PROVIDERS: PCP Family Medicine; Visit Provider Internal Medicine Hematology & Oncology
DX: C34.11 Malignant neoplasm of upper lobe, right bronchus or lung (principal); R59.1 Generalized enlarged lymph nodes; E11.9 Type 2 diabetes mellitus without complications; Z95.828 Presence of other vascular implants and grafts; I25.10 Atherosclerotic heart disease of native coronary artery without angina pectoris; Z95.1 Presence of aortocoronary bypass graft; Z92.3 Personal history of irradiation; Z92.21 Personal history of antineoplastic chemotherapy
CPT/HCPCS: 36591; 80053; 85025; 99214

== ENCOUNTER 2020-12-29 06:10 | Outpatient (CLI) | payer OTHER, MEDICARE, SELFPAY ==
[2020-12-29] MEDS: sodium chloride 0.9% 250 ML 75 ML IV (10:30)
== END 2020-12-29 06:11 | disposition home or self-care (01) ==
LOC: ONCMED 06:14
PROVIDERS: PCP Family Medicine; Visit Provider Internal Medicine Hematology & Oncology
DX: Z51.12 Encounter for antineoplastic immunotherapy (principal); C34.11 Malignant neoplasm of upper lobe, right bronchus or lung; C77.8 Secondary and unspecified malignant neoplasm of lymph nodes of multiple regions; Z79.899 Other long term (current) drug therapy
CPT/HCPCS: 96413; J7050; J9173

== ENCOUNTER 2021-01-12 05:51 | Outpatient (CLI) | payer OTHER, SELFPAY ==
[2021-01-12 09:14] LABS: Basophils # 0.1 10^3/uL (0.0-0.1); Basophils % 0.8 %; Eosinophils # 0.8 10^3/uL (0.0-0.8); Eosinophils % 9.7 %; Hematocrit 31.7 % (42.0-52.0); Hemoglobin 9.9 g/dL (11.7-16.6); Lymphocytes # 1.3 10^3/uL (0.8-4.8); Lymphocytes % 15.6 %; Mean Corpuscular HGB Conc 31.2 g/dL (30.0-36.0); Mean Corpuscular Hemoglobin 28.1 pg (28.0-34.0); Mean Corpuscular Volume 90.1 fl (80-94); Mean Platelet Volume 8.6 fL (7.4-10.4); Monocytes # 0.9 10^3/uL (0.2-0.9); Monocytes % 10.3 %; Neutrophils # 5.38 10^3/uL (1.8-7.7); Neutrophils % 63.4 %; Nucleated Red Blood Cells % 0 %; Platelet Count 321 10^3/cmm (130-400); Red Blood Count 3.52 10^6/uL (4.1-5.3); Red Cell Distribution Width 18.8 % (12.1-15.1); White Blood Count 8.5 10^3/uL (4.0-10.0)
[2021-01-12 09:28] LABS: Alanine Aminotransferase 13 U/L (0-41); Albumin Level 3.8 g/dL (3.5-5.2); Alkaline Phosphatase 68 IU/L (40-130); Anion Gap 15.3 (5-19); Aspartate Amino Transferase 16 U/L (0-40); Blood Urea Nitrogen 4 mg/dL (8-23); Calcium 9.3 mg/dL (8.5-10.5); Carbon Dioxide 25 mmol/L (22-29); Chloride 97 mmol/L (98-107); Globulin 2.7 g/dL (1.3-4.6); Glucose 136 mg/dL (65-115); Osmolality Calculated 275 mOsm/kg (285-295); Potassium 4.3 mmol/L (3.5-5.1); Sodium 133 mmol/L (136-145); Total Bilirubin 0.2 mg/dL (0.15-1.2); Total Protein 6.5 g/dL (6.6-8.7)
--- NOTE | 2021-01-12 17:55 | ONC FU_ITS ---
Dr. Campbell follow up note Patient: Marbin Funez V Unit #: [id number]: 1945 Dicatated By: Nuno Campbell M.D.Date of Visit:Jan 12, 2021 Onc Med Follow-up/Prog Note History of Present Illness: Mr. Funez is a 75-year-old gentleman with a history of COPD. He went to [facility] ER on November 26, 2019 with 3-day history of right flank pain. He reported his pain was radiating to with right pelvis. A CT scan of abdomen pelvis was done on November 26, 2019 which showed no urinary tract calculus or obstruction normal appendix; calcified right lower lobe pulmonary granuloma. On January 09, 2020, he had a chest x-ray done for chest pain and found to have right upper lung mass. He subsequently underwent CT scan of chest which confirmed right upper lobe lung mass measuring 2.7 x 3.1 cm. The lesion was subpleural and also showed mediastinal and hilar lymphadenopathy. He underwent transthoracic needle biopsy on February 06, 2020. He also underwent bronchoscopy and transbronchial needle aspiration of station 4R and 10 R lymph node. 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 Immunohistochemistry were negative for TTF-1, Napsin and p63 and CK 20 so based on this immunoprofile tumor was not overtly designated as a lung primary. Mr Funez has history of coronary artery disease status post stent placement and also has peripheral vascular disease. Patient denies any hemoptysis or hematemesis, denies any weight loss, denies any poor appetite,. Denies any headaches blurred vision or double vision. As per patient he has history of bladder cancer, diagnosed in 2007 or 8 at that time tumor was removed and he was given intravesical therapy. And followed by yearly exam until recently with no evidence of recurrence of disease. 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 He was evaluated by a vascular surgeon for intervention stenting or arterial bypass , As per patient bilateral femoral artery stenting was done on April 15, 2020 And on same day he underwent coronary artery stenting done, tolerated procedure very well and he was started on Plavix and aspirin. PET/CT scan from March 10, 2020 showed marked increase of metabolic activity in the anterior right upper lung lobe size about 2.6 x 3.2 cm consistent with neoplasia and there is extensive mediastinal lymph node involvement of anterior/prevascular lymph nodes, right paratracheal, precarinal with an index lesion measuring 1.4 x 2.0 cm with SUV of 6.75 and right hilar lymph node. No evidence of distant metastatic disease MRI scan of the brain done on April 06, 2020 showed no evidence of metastatic disease Tumor marker CA 19???9 was 18.37, PSA 0.673, and CEA 138.7., Patient had ENT evaluation done which shows no evidence of head or neck cancer EGD Was done on April 01, 2020, it was normal exam, As per patient he had colonoscopy done last year and it was unremarkable Mr Funez was offered treatment with concurrent chemoradiation and started with weekly carboplatin/Taxol on May 11, 2020. He has tolerated it well but has required growth factor support for neutropenia. He completed combined chemoradiation therapy on June 23, 2020. Follow-up PET/CT scan done on July 25, 2020 showed right upper lobe mass measured 2.3 x 1.8 cm, with SUV of 3.2 compared to 2.6 x 3.[address] PET scan done on March 10, 2020. The right upper lobe hilar lymph node had a SUV of 4.5. Other scattered mediastinal lymph nodes are subcentimeter in size and FDG negative no evidence of distant mets. Mr Funez started on maintenance durvalumab every 2 weeks for 12 months on July 28, 2020. He had follow-up arterial duplex of the right lower extremity on August 12, 2019 through the ER. He presented with pain from his knee to his ankle on the right leg. He has a history of stents in his groin in November 2019 per his report. The arterial Doppler did report features of high-grade stenosis in the distal superficial femoral artery on the right side. There are abnormal Doppler waveforms suggestive of collateral filling of the popliteal and infrapopliteal vessels. Severely diminished resting KATHERYN 0.4 on the right side. There were no similar previous studies available for comparison. Mr. Funez does have follow-up with cardiology regarding these findings. He presented for followup with complaints of right leg pain. 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 Mr Funez reports that his vascular surgeon informed him to continue with immunotherapy while undergoing management for peripheral vascular disease. His immunotherapy been placed on hold from his first cycle on July 28, 2020 but he did resume it on October 15, 2020.And on December 29, 2020, his durvalumab dose was changed to 1500 mg fixed every 4 weeks Follow-up CT PET scan done on December 12, 2020 shows extensive right lobe atelectasis and mass seen on prior study cannot be differentiated from adjacent atelectatic lung. Low-grade, diffuse FDG activity is consistent with inflammatory uptake. Right hilar lymph node previously seen is now resolved. Right pleural effusion Came for follow-up, denies any specific complaint except off and on hemoptysis, has seen Dr. Zhu, who has been monitoring him, patient is on oral iron tolerating well but with mild GI symptoms. No fever chills, no nausea or vomiting, no skin rash, no shortness of breath but dyspnea on exertion, no diarrhea or constipation, no jaundice, tolerated durvalumab fixed dose every 4 weeks well Medications: Acarbose 1 Tablet (of 100 mg) Oral t.i.d., Aspirin 1 Tablet (of 81 mg) Tablet, enteric coated Oral daily, Atorvastatin Calcium 1 Tablet (of 80 mg) Oral daily, Cetirizine HCl 1 Tablet (of 10 mg) Oral daily, Cholecalciferol 1 Capsule (of 25 mcg ) Oral daily, Cilostazol 1 Tablet (of 50 mg) Oral b.i.d., Clopidogrel Bisulfate 1 Tablet (of 75 mg) Oral daily, Flonase Suspension Nasal, Furosemide 1 Tablet (of 20 mg) Oral daily, Insulin Aspart Subcutaneous, Insulin Glargine 10 Units (of 100 Units/mL) Subcutaneous daily, Isosorbide Mononitrate ER 1 Tablet (of 30 mg) Tablet SR 24 HR Oral daily, Lisinopril 1 Tablet (of 40 mg) Oral daily, metFORMIN HCl 1 Tablet (of 850 mg) Oral t.i.d., Multivitamin 1 Tablet Oral daily, Naproxen 1 Tablet (of 250 mg) Oral q 8 hours PRN, Stiolto Respimat Aerosol, solution Inhalation Allergies: No Known Allergies. Review of Systems: Review of Systems is not available for this patient. Vital Signs: Performed on Jan 12, 2021 10:17 Height - 70.00 in Weight - 186.4 lbs (HIGH) BSA - 2.03 sq.m BMI - 26.75 Temperature - 98.1 F (LOW) Pulse - 97 /min Respiration - 18 /min BP - 109/66 mm(hg) O2 Sat - 96 % Pain - 0 Fatigue - 4 Performance Status: 0 - Fully active, able to carry on all predisease activities without restrictions. (ECOG) Physical Examination: ENMT - No mouth sores, no thrush, no jaundice, Respiratory - Lungs are clear to auscultation, Cardiovascular - Regular rate and rhythm of heart , Abdomen - Soft, bowel sounds present, Extremities - No visible edema. Lab/Imaging: Test performed on Oct 29, 2020 13:15 Sodium 124 mmol/L Potassium 5.0 mmol/L Chloride 90 mmol/L CO2 25 mmol/L Anion Gap 14.0 BUN 9 mg/dL Creatinine 0.4 mg/dL Cr Clearance (Est) 184.6700 mL/min Glucose 180 mg/dL Osmolality - Calculated 261 mOsm/kg Calcium 8.9 mg/dL Protein, Total 6.3 g/dL Albumin 3.6 g/dL Globulin 2.7 g/dL Bilirubin, Total 0.2 mg/dL ALT (SGPT) 17 U/L AST (SGOT) 14 U/L Alkaline Phosphatase 74 IU/L WBC 8.9 10 3/uL RBC 3.77 10 6/uL HGB 10.7 g/dL HCT 33.9 % MCV 89.9 fL MCH 28.4 pg MCHC 31.6 g/dL RDW 15.9 % Platelet Count 320 10 3/cmm MPV 8.6 fL Neutrophils 6.10 10 3/uL Lymphocytes 0.9 10 3/uL Monocytes 1.0 10 3/uL Eosinophils 0.8 10 3/uL Basophils 0.1 10 3/uL Neutrophil % 68.3 % Lymphocyte % 10.2 % Monocyte % 11.6 % Eosinophil % 8.8 % Basophils % 0.8 % NRBC % 0 % 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 CT scan of abdomen pelvis done in November 2019 showed no evidence of metastatic disease ENT, EGD evaluation showed no evidence of head and neck cancer, as per Patient, he had colonoscopy done last year it was unremarkable tumor marker CA 19???9 18.37 CEA 138.[address] PET scan done on March 10, 2020 showed right upper lobe mass measuring 2.6 x 3.2 cm with SUV of 10.30, extensive mediastinal lymphadenopathy along with right hilar lymph node. No distant metastatic disease a single rib, right 10th rib laterally demonstrated on heparin fracture with callus formation .MRI scan of the head done on April 06, 2020 showed no evidence of metastatic disease, Clinical stage IIIa Started on combined chemoradiation with weekly carboplatin/Taxol on May 11, 2020 Completed on June 23, 2020 Started on maintenance therapy with durvalumab on July 28, 2020 follow-up CT PET scan done on December 12, 2020 showed right upper lobe atelectasis and consolidation with inflammatory FDG uptake, right hilar lymph node seen on prior study is resolved. The right pleural effusion has developed. Diabetes and related complication ? diabetic neuropathyOr vascular as patient has been severe peripheral vascular disease involving bilateral feet Peripheral vascular disease,Status post bilateral femoral arterial stenting Done on April 15, 2020 CAD status post stent placement.Due to progressive coronary artery disease coronary artery stenting Done on April 15, 2020 Plan: Discussed with patient regarding his labs white blood count 8.5 hemoglobin 9.9 g compared to 10.3 g previously hematocrit 31.7 platelets 321,000 CMP within normal limit except sodium 133 glucose 136 Clinically, patient is doing reasonably well, recently switched to durvalumab fixed dose 1500 mg every 4 weeks, tolerated first dose well, his blood count looks reasonable except progressive iron deficiency anemia, patient is on oral iron which is not helping him much also concerned about upper GI symptoms, he will return to clinic in 2 weeks with CBC CMP and if there is no improvement in his hemoglobin, will consider parenteral iron. And also for his next dose of durvalumab. Signed By: Nuno Campbell M.D. <<Signature on File>>
== END 2021-01-12 05:52 | disposition home or self-care (01) ==
LOC: ONCMED 05:51
PROVIDERS: PCP Family Medicine; Visit Provider Internal Medicine Hematology & Oncology
DX: C34.11 Malignant neoplasm of upper lobe, right bronchus or lung (principal); I25.10 Atherosclerotic heart disease of native coronary artery without angina pectoris; E11.40 Type 2 diabetes mellitus with diabetic neuropathy, unspecified; Z79.899 Other long term (current) drug therapy; Z79.82 Long term (current) use of aspirin; Z79.84 Long term (current) use of oral hypoglycemic drugs; Z95.5 Presence of coronary angioplasty implant and graft
CPT/HCPCS: 36591; 80053; 85025; 99214

== ENCOUNTER 2021-01-20 06:27 | Outpatient (CLI) | payer OTHER, SELFPAY ==
[2021-01-20] MEDS: ferric carboxy (IVPB) 750 MG in sodium chloride 0.9% (100 ml) 100 ML 460 MG IV (15:25)
== END 2021-01-20 06:28 | disposition home or self-care (01) ==
LOC: ONCMED 06:29
PROVIDERS: PCP Family Medicine; Visit Provider Internal Medicine Hematology & Oncology
DX: D50.9 Iron deficiency anemia, unspecified (principal); Z79.899 Other long term (current) drug therapy
CPT/HCPCS: 96365; J1439

== ENCOUNTER 2021-01-22 08:23 | Outpatient (CLI) | payer OTHER, MEDICARE, SELFPAY ==
--- NOTE | 2021-01-22 08:31 | USCV_ITS ---
Marbin Funez Age: 75 Gender: M : 1945 Exam Date: 01/22/2021 08:50 Ordering Phys: Joseph Montalvo MD Technologist: Exam Location: [facility] [place] Indication: PAD HX OF STENTS Risk Factors: Previous Vascular Surgery: STENTS RIGHT LEFT BP: 125.0 / 72.00 BP: 125.0/ 70.00 0 0 Waveform Velocity (cm/s) Velocity (cm/s) Waveform Biphasic 185.0 Iliac Prox 131.9 Biphasic Biphasic 170.9 Iliac Mid 125.5 Biphasic Biphasic 152.8 Iliac Distal 80.4 Biphasic Biphasic 128.7 SUBWAY CONDUCTOR 80.4 Biphasic Biphasic 143.8 SFA Prox 58.1 Biphasic Biphasic 116.9 SFA Mid 54.2 Biphasic Biphasic 115.1 SFA Dist 52.0 Biphasic Biphasic 50.3 POP 57.3 Biphasic Biphasic 105.5 VA[employer] SERVICE MECH[employer]IC 71.8 Biphasic Biphasic 56.0 DPA 64.9 Monophasic KATHERYN 1.1 1.1 FINDINGS Mild to moderate diffuse plaques in the iliac, femoral and popliteal arteries bilaterally Normal resting ABIs bilaterally Near normal Doppler flow velocities CONCLUSIONS 1. Mild to moderate diffuse plaques in the iliac, femoral and popliteal arteries bilaterally. 2. Normal resting ABIs bilaterally, suggesting no significant arterial obstruction Dr Sharif Arias MD [facility] (Electronically Signed) Final Date: 22 January 2021 09:46 S
== END 2021-01-22 08:24 | disposition home or self-care (01) ==
PROVIDERS: PCP Family Medicine; Visit Provider Surgery
DX: I73.9 Peripheral vascular disease, unspecified (principal); Z98.62 Peripheral vascular angioplasty status; I70.8 Atherosclerosis of other arteries
CPT/HCPCS: 93925

== ENCOUNTER 2021-01-25 06:16 | Outpatient (CLI) | payer OTHER, MEDICARE, SELFPAY ==
[2021-01-25 15:28] LABS: Basophils % 0.4 %; Eosinophils # 0.4 10^3/uL (0.0-0.8); Eosinophils % 5.9 %; Hematocrit 30.2 % (42.0-52.0); Hemoglobin 9.4 g/dL (11.7-16.6); Lymphocytes # 1.3 10^3/uL (0.8-4.8); Lymphocytes % 18.5 %; Mean Corpuscular HGB Conc 31.1 g/dL (30.0-36.0); Mean Corpuscular Hemoglobin 28.3 pg (28.0-34.0); Mean Platelet Volume 8.6 fL (7.4-10.4); Monocytes # 0.8 10^3/uL (0.2-0.9); Monocytes % 11.6 %; Neutrophils # 4.52 10^3/uL (1.8-7.7); Neutrophils % 63.3 %; Nucleated Red Blood Cells % 0 %; Platelet Count 330 10^3/cmm (130-400); Red Blood Count 3.32 10^6/uL (4.1-5.3); Red Cell Distribution Width 18.6 % (12.1-15.1); White Blood Count 7.1 10^3/uL (4.0-10.0)
[2021-01-25 15:35] LABS: Alanine Aminotransferase 14 U/L (0-41); Albumin Level 3.9 g/dL (3.5-5.2); Alkaline Phosphatase 61 IU/L (40-130); Anion Gap 14.4 (5-19); Aspartate Amino Transferase 19 U/L (0-40); Blood Urea Nitrogen 12 mg/dL (8-23); Calcium 8.6 mg/dL (8.5-10.5); Carbon Dioxide 25 mmol/L (22-29); Chloride 99 mmol/L (98-107); Globulin 2.5 g/dL (1.3-4.6); Glucose 121 mg/dL (65-115); Osmolality Calculated 279 mOsm/kg (285-295); Potassium 4.4 mmol/L (3.5-5.1); Sodium 134 mmol/L (136-145); Total Bilirubin 0.3 mg/dL (0.15-1.2); Total Protein 6.4 g/dL (6.6-8.7)
== END 2021-01-25 06:17 | disposition home or self-care (01) ==
LOC: ONCMED 06:17
PROVIDERS: PCP Family Medicine; Visit Provider Internal Medicine Hematology & Oncology
DX: C34.11 Malignant neoplasm of upper lobe, right bronchus or lung (principal); I25.10 Atherosclerotic heart disease of native coronary artery without angina pectoris; Z95.5 Presence of coronary angioplasty implant and graft
CPT/HCPCS: 36591; 80053; 85025

== ENCOUNTER 2021-01-26 05:48 | Outpatient (CLI) | payer OTHER, MEDICARE, SELFPAY ==
[2021-01-26] MEDS: sodium chloride 0.9% 250 ML 75 ML IV (09:09)
[2021-01-26] MEDS: ferric carboxy (IVPB) 750 MG in sodium chloride 0.9% (100 ml) 100 ML 345 MG IV (10:15)
--- NOTE | 2021-01-26 17:35 | ONC FU_ITS ---
Dr. Campbell follow up note Patient: Marbin Funez V Unit #: [id number]: 1945 Dicatated By: Nuno Campbell M.D.Date of Visit:Jan 26, 2021 Onc Med Follow-up/Prog Note History of Present Illness: Mr. Funez is a 75-year-old gentleman with a history of COPD. He went to [facility] on November 26, 2019 with 3-day history of right flank pain. He reported his pain was radiating to with right pelvis. A CT scan of abdomen pelvis was done on November 26, 2019 which showed no urinary tract calculus or obstruction normal appendix; calcified right lower lobe pulmonary granuloma. On January 09, 2020, he had a chest x-ray done for chest pain and found to have right upper lung mass. He subsequently underwent CT scan of chest which confirmed right upper lobe lung mass measuring 2.7 x 3.1 cm. The lesion was subpleural and also showed mediastinal and hilar lymphadenopathy. He underwent transthoracic needle biopsy on February 06, 2020. He also underwent bronchoscopy and transbronchial needle aspiration of station 4R and 10 R lymph node. 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 Immunohistochemistry were negative for TTF-1, Napsin and p63 and CK 20 so based on this immunoprofile tumor was not overtly designated as a lung primary. Mr Funez has history of coronary artery disease status post stent placement and also has peripheral vascular disease. Patient denies any hemoptysis or hematemesis, denies any weight loss, denies any poor appetite,. Denies any headaches blurred vision or double vision. As per patient he has history of bladder cancer, diagnosed in 2007 or 8 at that time tumor was removed and he was given intravesical therapy. And followed by yearly exam until recently with no evidence of recurrence of disease. 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 He was evaluated by a vascular surgeon for intervention stenting or arterial bypass , As per patient bilateral femoral artery stenting was done on April 15, 2020 And on same day he underwent coronary artery stenting done, tolerated procedure very well and he was started on Plavix and aspirin. PET/CT scan from March 10, 2020 showed marked increase of metabolic activity in the anterior right upper lung lobe size about 2.6 x 3.2 cm consistent with neoplasia and there is extensive mediastinal lymph node involvement of anterior/prevascular lymph nodes, right paratracheal, precarinal with an index lesion measuring 1.4 x 2.0 cm with SUV of 6.75 and right hilar lymph node. No evidence of distant metastatic disease MRI scan of the brain done on April 06, 2020 showed no evidence of metastatic disease Tumor marker CA 19???9 was 18.37, PSA 0.673, and CEA 138.7., Patient had ENT evaluation done which shows no evidence of head or neck cancer EGD Was done on April 01, 2020, it was normal exam, As per patient he had colonoscopy done last year and it was unremarkable Mr Funez was offered treatment with concurrent chemoradiation and started with weekly carboplatin/Taxol on May 11, 2020. He has tolerated it well but has required growth factor support for neutropenia. He completed combined chemoradiation therapy on June 23, 2020. Follow-up PET/CT scan done on July 25, 2020 showed right upper lobe mass measured 2.3 x 1.8 cm, with SUV of 3.2 compared to 2.6 x 3.[address] PET scan done on March 10, 2020. The right upper lobe hilar lymph node had a SUV of 4.5. Other scattered mediastinal lymph nodes are subcentimeter in size and FDG negative no evidence of distant mets. Mr Funez started on maintenance durvalumab every 2 weeks for 12 months on July 28, 2020. He had follow-up arterial duplex of the right lower extremity on August 12, 2019 through the ER. He presented with pain from his knee to his ankle on the right leg. He has a history of stents in his groin in November 2019 per his report. The arterial Doppler did report features of high-grade stenosis in the distal superficial femoral artery on the right side. There are abnormal Doppler waveforms suggestive of collateral filling of the popliteal and infrapopliteal vessels. Severely diminished resting KATHERYN 0.4 on the right side. There were no similar previous studies available for comparison. Mr. Funez does have follow-up with cardiology regarding these findings. He presented for followup with complaints of right leg pain. 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 Mr Funez reports that his vascular surgeon informed him to continue with immunotherapy while undergoing management for peripheral vascular disease. His immunotherapy been placed on hold from his first cycle on July 28, 2020 but he did resume it on October 15, 2020.And on December 29, 2020, his durvalumab dose was changed to 1500 mg fixed every 4 weeks Follow-up CT PET scan done on December 12, 2020 shows extensive right lobe atelectasis and mass seen on prior study cannot be differentiated from adjacent atelectatic lung. Low-grade, diffuse FDG activity is consistent with inflammatory uptake. Right hilar lymph node previously seen is now resolved. Right pleural effusion Came for follow-up, denies any specific complaint except productive cough, clear phlegm, occasionally blood-streaked, has seen Dr. Zhu recently and but no fever chills, no nausea or vomiting, no diarrhea constipation, no skin rash, no bronchial wheezing, no jaundice, occasionally midsternal/back discomfort especially after coughing, patient also has history of coronary artery disease with stent placement and peripheral vascular disease, now being followed by cardiology., He was given parenteral iron for iron deficiency anemia which he tolerated well, he is tolerating adjuvant/maintenance immunotherapy with durvalumab well otherwise Medications: Acarbose 1 Tablet (of 100 mg) Oral t.i.d., Aspirin 1 Tablet (of 81 mg) Tablet, enteric coated Oral daily, Atorvastatin Calcium 1 Tablet (of 80 mg) Oral daily, Benzonatate (100 mg) Capsule Oral t.i.d., Cetirizine HCl 1 Tablet (of 10 mg) Oral daily, Cholecalciferol 1 Capsule (of 25 mcg ) Oral daily, Cilostazol 1 Tablet (of 50 mg) Oral b.i.d., Clopidogrel Bisulfate 1 Tablet (of 75 mg) Oral daily, Flonase Suspension Nasal, Furosemide 1 Tablet (of 20 mg) Oral daily, Insulin Aspart Subcutaneous, Insulin Glargine 10 Units (of 100 Units/mL) Subcutaneous daily, Isosorbide Mononitrate ER 1 Tablet (of 30 mg) Tablet SR 24 HR Oral daily, Lisinopril 1 Tablet (of 40 mg) Oral daily, metFORMIN HCl 1 Tablet (of 850 mg) Oral t.i.d., Multivitamin 1 Tablet Oral daily, Naproxen 1 Tablet (of 250 mg) Oral q 8 hours PRN, Stiolto Respimat Aerosol, solution Inhalation Allergies: No Known Allergies. Review of Systems: Review of Systems is not available for this patient. Vital Signs: Performed on Jan 26, 2021 15:33 Height - 70.00 in Weight - 184.6 lbs (LOW) BSA - 2.02 sq.m BMI - 26.49 Temperature - 97.6 F (LOW) Pulse - 99 /min Respiration - 18 /min BP - 117/63 mm(hg) O2 Sat - 96 % Pain - 0 Fatigue - 6 Performance Status: 0 - Fully active, able to carry on all predisease activities without restrictions. (ECOG) Physical Examination: ENMT - No mouth sores, no thrush, no jaundice, Respiratory - Lungs are clear to auscultation, Cardiovascular - Regular rate and rhythm of heart, Abdomen - Soft, bowel sounds present, Extremities - No visible edema. Lab/Imaging: Test performed on Oct 29, 2020 13:15 Sodium 124 mmol/L Potassium 5.0 mmol/L Chloride 90 mmol/L CO2 25 mmol/L Anion Gap 14.0 BUN 9 mg/dL Creatinine 0.4 mg/dL Cr Clearance (Est) 184.6700 mL/min Glucose 180 mg/dL Osmolality - Calculated 261 mOsm/kg Calcium 8.9 mg/dL Protein, Total 6.3 g/dL Albumin 3.6 g/dL Globulin 2.7 g/dL Bilirubin, Total 0.2 mg/dL ALT (SGPT) 17 U/L AST (SGOT) 14 U/L Alkaline Phosphatase 74 IU/L WBC 8.9 10 3/uL RBC 3.77 10 6/uL HGB 10.7 g/dL HCT 33.9 % MCV 89.9 fL MCH 28.4 pg MCHC 31.6 g/dL RDW 15.9 % Platelet Count 320 10 3/cmm MPV 8.6 fL Neutrophils 6.10 10 3/uL Lymphocytes 0.9 10 3/uL Monocytes 1.0 10 3/uL Eosinophils 0.8 10 3/uL Basophils 0.1 10 3/uL Neutrophil % 68.3 % Lymphocyte % 10.2 % Monocyte % 11.6 % Eosinophil % 8.8 % Basophils % 0.8 % NRBC % 0 % 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 CT scan of abdomen pelvis done in November 2019 showed no evidence of metastatic disease ENT, EGD evaluation showed no evidence of head and neck cancer, as per Patient, he had colonoscopy done last year it was unremarkable tumor marker CA 19???9 18.37 CEA [address] PET scan done on March 10, 2020 showed right upper lobe mass measuring 2.6 x 3.2 cm with SUV of 10.30, extensive mediastinal lymphadenopathy along with right hilar lymph node. No distant metastatic disease a single rib, right 10th rib laterally demonstrated on heparin fracture with callus formation .MRI scan of the head done on April 06, 2020 showed no evidence of metastatic disease, Clinical stage IIIa Started on combined chemoradiation with weekly carboplatin/Taxol on May 11, 2020 Completed on June 23, 2020 Started on maintenance therapy with durvalumab on July 28, 2020 follow-up CT PET scan done on December 12, 2020 showed right upper lobe atelectasis and consolidation with inflammatory FDG uptake, right hilar lymph node seen on prior study is resolved. The right pleural effusion has developed. Diabetes and related complication ? diabetic neuropathyOr vascular as patient has been severe peripheral vascular disease involving bilateral feet Peripheral vascular disease,Status post bilateral femoral arterial stenting Done on April 15, 2020 CAD status post stent placement.Due to progressive coronary artery disease coronary artery stenting Done on April 15, 2020 Plan: Discussed with patient regarding his labs white blood count 7.1 hemoglobin 9.4 g hematocrit 30.2 platelets 330,000 CMP within normal limits except sodium 134 Clinically, patient is doing well with no new signs symptom suggestive of disease progression, will proceed with next monthly dose of durvalumab 1500 mg today then he will return to clinic in 4 weeks with CBC CMP and if he has persistent anemia, iron studies, B12 folic acid, reticulocyte count and EPO level, as considering his age he may have underlying myelodysplasia. As far as productive cough is concerned, could be due to postnasal drip, patient was advised to try Claritin once a day and continue with nasal irrigation and gargles. As far as midsternal/back pain/discomfort is concerned, patient was advised in case is a worsening of pain, he need to contact his cardiology or go to emergency room for further evaluation. Signed By: Nuno Campbell M.D. <<Signature on File>>
== END 2021-01-26 05:49 | disposition home or self-care (01) ==
LOC: ONCMED 05:48
PROVIDERS: PCP Family Medicine; Visit Provider Internal Medicine Hematology & Oncology
DX: Z51.12 Encounter for antineoplastic immunotherapy (principal); C34.11 Malignant neoplasm of upper lobe, right bronchus or lung; M54.9 Dorsalgia, unspecified; R05 Cough; E11.9 Type 2 diabetes mellitus without complications; I25.10 Atherosclerotic heart disease of native coronary artery without angina pectoris; Z95.5 Presence of coronary angioplasty implant and graft; Z79.899 Other long term (current) drug therapy; Z79.4 Long term (current) use of insulin
CPT/HCPCS: 96367; 96413; 99215; J1439; J7050; J9173

== ENCOUNTER 2021-02-18 12:31 | Outpatient (CLI) | payer OTHER, SELFPAY ==
[2021-02-18 13:49] VITALS: BMI 26.9
--- NOTE | 2021-02-18 13:50 | ECG_ITS ---
[facility] Test Date: 2021-02-18 Pat Name: Marbin Funez Department: Room: Gender: Male [employer]: : 1945 Requested By: Nate Medeiros Order Number: [id number] Rony MD: Cornell Hoover M.D. Interpretive Statements NAME OF STUDY: DOBUTAMINE STRESS ECHOCARDIOGRAM INDICATION: [Chest Pain, ] EXERCISE DATA: The patient had dobutamine stress echocardiogram. Baseline heart rate was 76 beats per minute. Baseline blood pressure was 124/63 millimeters of mercury. Target heart rate was 122 beats per minute. Maximum heart rate achieved was 124. Maximum blood pressure was 139/52 millimeters of mercury. The reason for ending the test was [completion of the protocol]. The patient complained of shortness of breath during the stress test, which then resolved at the end of the test. ELECTROCARDIOGRAM: BASELINE: Showed sinus rhythm, normal axis, no significant ST-T changes at the baseline noted. Artifact noted[] Dobutamine infusion: Sinus tachycardia, no ST-T wave changes RECOVERY: During the recovery period, heart rate dropped appropriately. No significant ST-T changes in the recovery suggestive of ischemia noted. [] CONCLUSION: 1. Normal EKG and blood pressure response to dobutamine 2. Heart rate response was appropriate 3. Blood pressure response was appropriate. 4. Symptoms not suggestive of ischemia. 5. Electrocardiogram portion of the stress test was not suggestive of ischemia. Electronically Signed On 03-22-2021 10:14:37 ANGLE SHEARER by Cornell Hoover M.D. [email or web address]
--- NOTE | 2021-02-18 13:51 | USCV_ITS ---
Marbin Funez Age: 75 Gender: M : 1945 Exam Date: 02/18/2021 14:11 Ordering Phys: Nate Nelson MD Technologist: Kathia Torres Exam Location: [facility] [place] Indication: CHEST PAIN Rhythm: Sinus Patient History: Chest pain Cardiac Medications: Medications in past 24 hours: Contrast: Optison Total Dose (mL): Stress Results Protocol: Peak Dose (???g/kg/min): Duration (min:sec): 8:21 Atropine:(mg) Target HR: 122 Double Product: [id number] Resting HR: 74 Resting BP: 124 / 63 Peak HR: 124 Peak BP: 139 / 68 Max Predicted HR: 144 86 % Max Predicted HR Stress Summary: The hemodynamic response to stress was normal. The patient's target heart rate was achieved. BP Response: Normal Reason for Termination: The patients target heart rate was achieved Cardiac Symptoms: None ECG Analysis Resting EKG: Normal sinus rhythm Stress EKG: Sinus tachycardia Arrhythmia: None MEASUREMENTS (Male/Female) Normal Values FINDINGS Normal baseline LV systolic function with EF of 55-60% Stress images obtained 2-4 beats below target heart rate At peak stress, heart is hyperkinetic with EF of >65% No stress induced regional wall motion abnormalities/ hypokinesis suggesting ischemia noted CONCLUSIONS EKG portion of stress test more suggestive of ischemia. Normal baseline LV systolic function. Appropriate heart rate trend blood pressure response. Stress images obtained 2 to 4 beats below target heart rate. This reduces sensitivity of the test however no stress-induced regional wall motion abnormalities or hypokinesis suggesting ischemia is noted. No evidence of ischemia at peak stress Cornell Hoover MD (Electronically Signed) Final Date: 27 February 2021 21:09 S
[2021-02-18] MEDS: DOBUTtamine 200 MG in sodium chloride 0.9% 34 ML 13 MG IV (14:21)
[2021-02-18 14:56] VITALS: BP 132/67; PULSE 88
== END 2021-02-18 12:32 | disposition home or self-care (01) ==
LOC: CDL 12:32
PROVIDERS: PCP Family Medicine; Visit Provider Internal Medicine Clinical Cardiac Electrophysiology
DX: R07.9 Chest pain, unspecified (principal); R06.02 Shortness of breath
CPT/HCPCS: 93017; 93350; 93352; J1250; J7050

== ENCOUNTER 2021-02-23 07:55 | Outpatient (CLI) | payer OTHER, SELFPAY ==
[2021-02-23 08:41] LABS: Basophils # 0.1 10^3/uL (0.0-0.1); Basophils % 0.8 %; Eosinophils # 1.1 10^3/uL (0.0-0.8); Eosinophils % 15.2 %; Hematocrit 35.2 % (42.0-52.0); Hemoglobin 11.1 g/dL (11.7-16.6); Lymphocytes # 1.3 10^3/uL (0.8-4.8); Lymphocytes % 18.5 %; Mean Corpuscular HGB Conc 31.5 g/dL (30.0-36.0); Mean Corpuscular Hemoglobin 30.8 pg (28.0-34.0); Mean Corpuscular Volume 97.8 fl (80-94); Mean Platelet Volume 8.5 fL (7.4-10.4); Monocytes # 0.6 10^3/uL (0.2-0.9); Monocytes % 8.9 %; Neutrophils # 4.07 10^3/uL (1.8-7.7); Neutrophils % 56.3 %; Nucleated Red Blood Cells % 0 %; Platelet Count 278 10^3/cmm (130-400); Red Cell Distribution Width 18.7 % (12.1-15.1); White Blood Count 7.2 10^3/uL (4.0-10.0)
[2021-02-23 09:34] LABS: Alanine Aminotransferase 13 U/L (0-41); Albumin Level 4.1 g/dL (3.5-5.2); Alkaline Phosphatase 67 IU/L (40-130); Anion Gap 11.3 (5-19); Aspartate Amino Transferase 15 U/L (0-40); Blood Urea Nitrogen 7 mg/dL (8-23); Calcium 8.9 mg/dL (8.5-10.5); Carbon Dioxide 27 mmol/L (22-29); Chloride 102 mmol/L (98-107); Globulin 2.4 g/dL (1.3-4.6); Glucose 108 mg/dL (65-115); Osmolality Calculated 281 mOsm/kg (285-295); Potassium 4.3 mmol/L (3.5-5.1); Sodium 136 mmol/L (136-145); Thyroid Stimulating Hormone 32.02 uIU/mL (0.27-4.20); Total Bilirubin 0.2 mg/dL (0.15-1.2); Total Protein 6.5 g/dL (6.6-8.7)
--- NOTE | 2021-03-01 10:00 | ONC FU_ITS ---
Dr. Campbell follow up note Patient: Marbin Funez V Unit #: [id number]: [id number] Dicatated By: Nuno Campbell M.D.Date of Visit:Feb 23, 2021 Onc Med Follow-up/Prog Note History of Present Illness: Mr. Funez is a 75-year-old gentleman with a history of COPD. He went to [facility] on November 26, 2019 with 3-day history of right flank pain. He reported his pain was radiating to with right pelvis. A CT scan of abdomen pelvis was done on November 26, 2019 which showed no urinary tract calculus or obstruction normal appendix; calcified right lower lobe pulmonary granuloma. On January 09, 2020, he had a chest x-ray done for chest pain and found to have right upper lung mass. He subsequently underwent CT scan of chest which confirmed right upper lobe lung mass measuring 2.7 x 3.1 cm. The lesion was subpleural and also showed mediastinal and hilar lymphadenopathy. He underwent transthoracic needle biopsy on February 06, 2020. He also underwent bronchoscopy and transbronchial needle aspiration of station 4R and 10 R lymph node. 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 Immunohistochemistry were negative for TTF-1, Napsin and p63 and CK 20 so based on this immunoprofile tumor was not overtly designated as a lung primary. Mr Funez has history of coronary artery disease status post stent placement and also has peripheral vascular disease. Patient denies any hemoptysis or hematemesis, denies any weight loss, denies any poor appetite,. Denies any headaches blurred vision or double vision. As per patient he has history of bladder cancer, diagnosed in 2007 or 8 at that time tumor was removed and he was given intravesical therapy. And followed by yearly exam until recently with no evidence of recurrence of disease. 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 He was evaluated by a vascular surgeon for intervention stenting or arterial bypass , As per patient bilateral femoral artery stenting was done on April 15, 2020 And on same day he underwent coronary artery stenting done, tolerated procedure very well and he was started on Plavix and aspirin. PET/CT scan from March 10, 2020 showed marked increase of metabolic activity in the anterior right upper lung lobe size about 2.6 x 3.2 cm consistent with neoplasia and there is extensive mediastinal lymph node involvement of anterior/prevascular lymph nodes, right paratracheal, precarinal with an index lesion measuring 1.4 x 2.0 cm with SUV of 6.75 and right hilar lymph node. No evidence of distant metastatic disease MRI scan of the brain done on April 06, 2020 showed no evidence of metastatic disease Tumor marker CA 19???9 was 18.37, PSA 0.673, and CEA 138.7., Patient had ENT evaluation done which shows no evidence of head or neck cancer EGD Was done on April 01, 2020, it was normal exam, As per patient he had colonoscopy done last year and it was unremarkable Mr Funez was offered treatment with concurrent chemoradiation and started with weekly carboplatin/Taxol on May 11, 2020. He has tolerated it well but has required growth factor support for neutropenia. He completed combined chemoradiation therapy on June 23, 2020. Follow-up PET/CT scan done on July 25, 2020 showed right upper lobe mass measured 2.3 x 1.8 cm, with SUV of 3.2 compared to 2.6 x 3.[address] PET scan done on March 10, 2020. The right upper lobe hilar lymph node had a SUV of 4.5. Other scattered mediastinal lymph nodes are subcentimeter in size and FDG negative no evidence of distant mets. Mr Funez started on maintenance durvalumab every 2 weeks for 12 months on July 28, 2020. He had follow-up arterial duplex of the right lower extremity on August 12, 2019 through the ER. He presented with pain from his knee to his ankle on the right leg. He has a history of stents in his groin in November 2019 per his report. The arterial Doppler did report features of high-grade stenosis in the distal superficial femoral artery on the right side. There are abnormal Doppler waveforms suggestive of collateral filling of the popliteal and infrapopliteal vessels. Severely diminished resting KATHERYN 0.4 on the right side. There were no similar previous studies available for comparison. Mr. Funez does have follow-up with cardiology regarding these findings. He presented for followup with complaints of right leg pain. 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 Mr Funez reports that his vascular surgeon informed him to continue with immunotherapy while undergoing management for peripheral vascular disease. His immunotherapy been placed on hold from his first cycle on July 28, 2020 but he did resume it on October 15, 2020.And on December 29, 2020, his durvalumab dose was changed to 1500 mg fixed every 4 weeks Follow-up CT PET scan done on December 12, 2020 shows extensive right lobe atelectasis and mass seen on prior study cannot be differentiated from adjacent atelectatic lung. Low-grade, diffuse FDG activity is consistent with inflammatory uptake. Right hilar lymph node previously seen is now resolved. Right pleural effusion Came for follow-up, denies any specific complaint except persistent cough, on Tessalon and inhaler, now being followed by pulmonology and cardiology. Patient denies any fever chills denies any nausea or vomiting denies any diarrhea constipation denies any melena hematochezia, denies any hemoptysis or hematemesis, tolerating monthly durvalumab well otherwise Medications: Acarbose 1 Tablet (of 100 mg) Oral t.i.d., Aspirin 1 Tablet (of 81 mg) Tablet, enteric coated Oral daily, Atorvastatin Calcium 1 Tablet (of 80 mg) Oral daily, Benzonatate (100 mg) Capsule Oral t.i.d., Cetirizine HCl 1 Tablet (of 10 mg) Oral daily, Cholecalciferol 1 Capsule (of 25 mcg ) Oral daily, Cilostazol 1 Tablet (of 50 mg) Oral b.i.d., Clopidogrel Bisulfate 1 Tablet (of 75 mg) Oral daily, Flonase Suspension Nasal, Furosemide 1 Tablet (of 20 mg) Oral daily, Insulin Aspart Subcutaneous, Insulin Glargine 10 Units (of 100 Units/mL) Subcutaneous daily, Isosorbide Mononitrate ER 1 Tablet (of 30 mg) Tablet SR 24 HR Oral daily, Lisinopril 1 Tablet (of 40 mg) Oral daily, metFORMIN HCl 1 Tablet (of 850 mg) Oral t.i.d., Multivitamin 1 Tablet Oral daily, Naproxen 1 Tablet (of 250 mg) Oral q 8 hours PRN, Stiolto Respimat Aerosol, solution Inhalation Allergies: No Known Allergies. Review of Systems: Review of Systems is not available for this patient. Vital Signs: Performed on Feb 23, 2021 09:10 Height - 70.00 in Weight - 188.6 lbs (HIGH) BSA - 2.04 sq.m BMI - 27.06 Temperature - 98.0 F (LOW) Pulse - 74 /min Respiration - 18 /min BP - 122/68 mm(hg) O2 Sat - 96 % Pain - 0 Fatigue - 2 Performance Status: 0 - Fully active, able to carry on all predisease activities without restrictions. (ECOG) Physical Examination: ENMT - No mouth sores, no thrush, no jaundice, Respiratory - Lungs are clear to auscultation, Cardiovascular - Regular rate and rhythm of heart, Abdomen - Soft, bowel sounds present, Extremities - No visible edema. Lab/Imaging: Test performed on Oct 29, 2020 13:15 Sodium 124 mmol/L Potassium 5.0 mmol/L Chloride 90 mmol/L CO2 25 mmol/L Anion Gap 14.0 BUN 9 mg/dL Creatinine 0.4 mg/dL Cr Clearance (Est) 184.6700 mL/min Glucose 180 mg/dL Osmolality - Calculated 261 mOsm/kg Calcium 8.9 mg/dL Protein, Total 6.3 g/dL Albumin 3.6 g/dL Globulin 2.7 g/dL Bilirubin, Total 0.2 mg/dL ALT (SGPT) 17 U/L AST (SGOT) 14 U/L Alkaline Phosphatase 74 IU/L WBC 8.9 10 3/uL RBC 3.77 10 6/uL HGB 10.7 g/dL HCT 33.9 % MCV 89.9 fL MCH 28.4 pg MCHC 31.6 g/dL RDW 15.9 % Platelet Count 320 10 3/cmm MPV 8.6 fL Neutrophils 6.10 10 3/uL Lymphocytes 0.9 10 3/uL Monocytes 1.0 10 3/uL Eosinophils 0.8 10 3/uL Basophils 0.1 10 3/uL Neutrophil % 68.3 % Lymphocyte % 10.2 % Monocyte % 11.6 % Eosinophil % 8.8 % Basophils % 0.8 % NRBC % 0 % 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 CT scan of abdomen pelvis done in November 2019 showed no evidence of metastatic disease ENT, EGD evaluation showed no evidence of head and neck cancer, as per Patient, he had colonoscopy done last year it was unremarkable tumor marker CA 19???9 18.37 CEA 138[address] PET scan done on March 10, 2020 showed right upper lobe mass measuring 2.6 x 3.2 cm with SUV of 10.30, extensive mediastinal lymphadenopathy along with right hilar lymph node. No distant metastatic disease a single rib, right 10th rib laterally demonstrated on heparin fracture with callus formation .MRI scan of the head done on April 06, 2020 showed no evidence of metastatic disease, Clinical stage IIIa Started on combined chemoradiation with weekly carboplatin/Taxol on May 11, 2020 Completed on June 23, 2020 Started on maintenance therapy with durvalumab on July 28, 2020 follow-up CT PET scan done on December 12, 2020 showed right upper lobe atelectasis and consolidation with inflammatory FDG uptake, right hilar lymph node seen on prior study is resolved. The right pleural effusion has developed. Diabetes and related complication ? diabetic neuropathyOr vascular as patient has been severe peripheral vascular disease involving bilateral feet Peripheral vascular disease,Status post bilateral femoral arterial stenting Done on April 15, 2020 CAD status post stent placement.Due to progressive coronary artery disease coronary artery stenting Done on April 15, 2020 Plan: Discussed with patient regarding his labs white blood count 7.2 hemoglobin 11.1 g compared to 9.4 previously, patient recently received Injectafer infusion for iron deficiency anemia. 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 daily and repeat TSH in 1 week and then adjust his Synthroid dose accordingly. Signed By: Nuno Campbell M.D. <<Signature on File>>
== END 2021-02-23 07:56 | disposition home or self-care (01) ==
PROVIDERS: PCP Family Medicine; Visit Provider Internal Medicine Hematology & Oncology
DX: Z51.12 Encounter for antineoplastic immunotherapy (principal); C34.11 Malignant neoplasm of upper lobe, right bronchus or lung; J90 Pleural effusion, not elsewhere classified; E11.9 Type 2 diabetes mellitus without complications; I73.9 Peripheral vascular disease, unspecified; I25.10 Atherosclerotic heart disease of native coronary artery without angina pectoris; Z79.82 Long term (current) use of aspirin; Z79.4 Long term (current) use of insulin; Z79.02 Long term (current) use of antithrombotics/antiplatelets; Z95.5 Presence of coronary angioplasty implant and graft
CPT/HCPCS: 80053; 84443; 85025; 96413; 99215; J7050; J9173

== ENCOUNTER 2021-03-02 06:43 | Outpatient (CLI) | payer OTHER, SELFPAY ==
[2021-03-02 16:03] LABS: Thyroid Stimulating Hormone 20.51 uIU/mL (0.27-4.20)
== END 2021-03-02 06:44 | disposition home or self-care (01) ==
LOC: ONCMED 06:43
PROVIDERS: PCP Family Medicine; Visit Provider Internal Medicine Hematology & Oncology
DX: E05.90 Thyrotoxicosis, unspecified without thyrotoxic crisis or storm (principal)
CPT/HCPCS: 36591; 84443

== ENCOUNTER 2021-03-08 09:33 | Emergency (ER) | payer OTHER, MEDICARE, SELFPAY ==
[2021-03-08 09:38] VITALS: BP 120/66; PULSE 95; RESP 18; TEMP 36.4; O2SAT 97; BMI 26.9
--- NOTE | 2021-03-08 09:52 | ED_ITS ---
HPI - Epistaxis General: Chief complaint: Epistaxis Stated complaint: NOSE BLEED Time Seen by Provider: 03/08/21 09:43 Source: patient and family Mode of arrival: ambulatory Limitations: no limitations History of Present Illness: HPI Narrative: Patient is a 75-year-old male who presents to ED today along with his for complaints of a nosebleed that started today. Patient states over the past several months he has had several nosebleeds. He is waiting on approval for referral to see ENT/Dr. Connell. He states his previous nosebleeds were easily controlled with pressure. Patient states his nosebleed today was not controllable thus prompting his ED visit. Patient states he does take Plavix and aspirin daily. MD complaint: epistaxis Location: right nostril Onset (ago): hour(s) Duration: constant Context: history of previous, aspirin use and other anticoagulant use (plavix) Associated symptoms: Reports no associated symptoms; Deny fever(s), headache(s), sinus pain or vomiting Treatment prior to arrival: nose pinching and stuffed nose with tissue Review of Systems Const: Denies: fever(s), chills, body aches, fatigue or malaise Eyes: Denies: change in vision, blurry vision, photophobia, eye discomfort or floaters ENMT: Reports: epistaxis; Denies: throat pain, odynophagia, ear or mastoid pain, nasal discharge, nasal congestion, post nasal drip or sinus pain Card: Denies: chest pain Resp: Denies: dyspnea GI: Denies: nausea or vomiting Musc: Denies: neck pain Skin/Breast: Denies: rash Neuro: Denies: headache(s), dizziness or vertigo PFS ED PFSH: Medical History Bladder cancer Lung nodule PVD (peripheral vascular disease) Type 2 diabetes mellitus with diabetic polyneuropathy Surgical History H/O colonoscopy H/O esophagogastroduodenoscopy (04/01/20) H/O heart artery stent History of bladder surgery History of bronchoscopy History of surgical removal of pilonidal cyst Port-A-Cath in place (04/01/20) Family History Other CAD (coronary artery disease) Cancer Diabetes Hyperlipidemia Hypertension Lung disease Denies family history of Clotting disorder Dementia Psychiatric illness Chronic kidney disease (CKD) Suicide Anesthesia complication Bleeding disorder Family history of premature coronary artery disease Stroke Social History (Updated 02/04/21 @ 14:45 by Arabella Benavides LPN) Smoking and tobacco status: former smoker Quit status (tobacco): has quit using tobacco Year quit tobacco: 2007- PPD x 45 Years Smoking risk assessment/counseling performed?: No Alcohol intake: never Counseling given: No Counseling given: No Lives independently: Yes Household members: spouse Marital status: service: Yes Current occupational status: retired History of recent travel: No Current gender identity: Male Physical Exam Const: COMMON NORMALS: no acute distress, average body habitus, patient oriented x3, no limitations, healthy appearing, alert and well nourished GENERAL APPEARANCE: cooperative ORIENTATION/CONSCIOUSNESS: Yes awake, Yes oriented to person, Yes oriented to place and Yes oriented to time HENMT: COMMON NORMALS: normocephalic, atraumatic and Normal external nose present HEAD & SCALP: normocephalic and atraumatic FACE & SINUS: normal facial exam NOSE: Normal external nose present and Epistaxis present on the right (large clot extracted from R nare; believe anterior source-will reassess once bleeding controlled ) source not visualized Neuro: COMMON NORMALS: patient oriented x3 and CN's II-XII intact bilaterally SENSORIUM/ORIENTATION: Yes alert, Yes oriented to person, Yes oriented to place and Yes oriented to time Procedures Epistaxis Control Time Out Performed: No Nostril: right Nose Prepped With: oxymetazoline Direct Inspection: anterior source identified Clots Removed by: manually Cautery Used: silver nitrate Patient Tolerated Procedure: well Course Vital Signs: Vital signs: Vital Signs Temperature 97.8 F 03/08/21 11:49 Pulse Rate 95 03/08/21 11:49 Respiratory Rate 18 03/08/21 11:49 Blood Pressure 122/69 03/08/21 11:49 Pulse Oximetry 97 03/08/21 11:49 MDM - Epistaxis MDM Narrative: Medical decision making narrative: Anterior source of right nare was eventually identified. Bleeding stopped with nasal clamp, oxymetazol ine, and a small amount of cauterization via silver nitrate. Patient was monitored for 30+ minutes with no bleeding. [place] is in the process of approving referral for ENT/Dr. Connell. Patient was given nasal clamp and oxymetazoline to go home with with instructions for use should bleeding to begin again. If they are unable to control bleeding at home he has instructions to return to the ED. Discharge Plan Discharge Patient Disposition: Home Clinical Impression: Acute anterior epistaxis Condition: Stable Prescriptions: No Action cholecalciferol (vitamin D3) 25 mcg (1,000 unit) capsule 25 mcg PO DAILY@0730 RF: 0 acarbose 100 mg tablet 100 mg PO TID@0730,1200,1800 RF: 0 metformin 850 mg tablet 850 mg PO TID@0730,1200,1800 RF: 0 Hold Instructions: Resume on 10/06/20. aspirin 81 mg tablet,delayed release (DR/EC) 81 mg PO DAILY@12 RF: 0 atorvastatin 80 mg tablet 40 mg PO DAILY@1800 RF: 0 Centrum Silver 0.4-300-250 mg-mcg-mcg tablet 1 tab PO DAILY@0730 RF: 0 insulin aspart U-100 [Novolog Flexpen U-100 Insulin] 100 unit/mL (3 mL) insulin pen 5 unit SUBCUT TID RF: 0 insulin glargine 100 unit/mL (3 mL) insulin pen 35 - 45 unit SUBCUT DAILY@22 RF: 0 (DME) Sole supports Qty: 1 RF: 0 (DME) Custom orthotics See Rx Instructions .Route .MEDSUPPLY Qty: 1 RF: 0 isosorbide mononitrate 60 mg tablet extended release 24 hr 60 mg PO DAILY@0800 Qty: 90 RF: 3 (DME) Diabetic shoes with custom inserts See Rx Instructions .Route .MEDSUPPLY Qty: 1 RF: 0 benzonatate [Tessalon Perles] 100 mg capsule 100 mg PO TID PRN (Reason: cough) 30 Days Qty: 90 RF: 0 Eliquis 2.5 mg tablet 2.5 mg PO BID Qty: 60 RF: 3 losartan 50 mg tablet 50 mg PO DAILY Qty: 90 RF: 2 nitroglycerin [Nitrostat] 0.4 mg tablet, sublingual 0.4 mg sublingual Q5M PRN (Reason: chest pain) Qty: 25 RF: 1 cetirizine 10 mg Tablet 10 mg PO DAILY RF: 0 clopidogrel 75 mg Tablet 75 mg PO DAILY RF: 0 polyethylene glycol 3350 17 gram/dose Powder 17 g PO DAILY RF: 0 fluticasone propionate 50 mcg/actuation [place],Suspension 1 spray INTRANASAL DAILY PRN (Reason: Allergy Symptoms) RF: 0 olodaterol 2.5 mcg/actuation mist 2 inh INHALATION DAILY@0800 RF: 0 cilostazol 50 mg Tablet 25 mg PO BID@0730,1800 RF: 0 acetaminophen [Tylenol Extra Strength] 500 mg Tablet 1,000 mg PO PRN RF: 0 hydrochlorothiazide 25 mg Tablet 25 mg PO DAILY@0730 RF: 0 ibuprofen 400 mg tablet 400 mg PO Q8H PRN (Reason: Leg pain) Qty: 30 RF: 0 Hold Instructions: Resume on 10/05/20. Discharge Orders: Discharge ED (Routine); Ordered 03/08/21 Ordered By: Mitzi Jaquez Referrals: Shavonne Biswas MD [Primary Care Provider] - Patient Instructions: Nosebleed (ED), Epistaxis - Adult Coding Level of Care Code ED [employer] Representative for Chg Fwd Exam Expanded Problem Focused
[2021-03-08 11:49] VITALS: BP 122/69; PULSE 95; RESP 18; TEMP 36.6; O2SAT 97
[2021-03-08] MEDS: oxymetazoline 0.05% Nasal Spray 15 mL 2 SPRAY NOSTRIL-R (11:54)
[2021-03-08] MEDS: silver nitrate applicator 1 EACH TOPICAL (11:55)
--- NOTE | 2021-03-09 09:37 | PC.SOCIAL ---
emailed referral per Mitzi Jaquez to ENT clinic they will call patient with an appt. Reason: Recurrent nose bleeds.
== END 2021-03-08 12:22 | disposition home or self-care (01) ==
PROVIDERS: Emergency Provider Physician Assistant; PCP Family Medicine
DX: R04.0 Epistaxis (principal); E11.42 Type 2 diabetes mellitus with diabetic polyneuropathy; I73.9 Peripheral vascular disease, unspecified; Z79.82 Long term (current) use of aspirin; Z79.84 Long term (current) use of oral hypoglycemic drugs; Z79.4 Long term (current) use of insulin; Z79.01 Long term (current) use of anticoagulants; Z87.891 Personal history of nicotine dependence; Z82.49 Family history of ischemic heart disease and other diseases of the circulatory system
CPT/HCPCS: 30901; 99283

== ENCOUNTER 2021-03-23 08:15 | Outpatient (CLI) | payer OTHER, SELFPAY ==
[2021-03-23 08:50] LABS: Basophils # 0.1 10^3/uL (0.0-0.1); Basophils % 1.1 %; Eosinophils # 1.1 10^3/uL (0.0-0.8); Eosinophils % 14.8 %; Hematocrit 35.4 % (42.0-52.0); Hemoglobin 11.6 g/dL (11.7-16.6); Lymphocytes # 1.2 10^3/uL (0.8-4.8); Lymphocytes % 16.1 %; Mean Corpuscular HGB Conc 32.8 g/dL (30.0-36.0); Mean Corpuscular Hemoglobin 31.1 pg (28.0-34.0); Mean Corpuscular Volume 94.9 fl (80-94); Mean Platelet Volume 8.2 fL (7.4-10.4); Monocytes # 0.6 10^3/uL (0.2-0.9); Monocytes % 8.8 %; Neutrophils # 4.22 10^3/uL (1.8-7.7); Neutrophils % 58.9 %; Nucleated Red Blood Cells % 0 %; Platelet Count 260 10^3/cmm (130-400); Red Blood Count 3.73 10^6/uL (4.1-5.3); Red Cell Distribution Width 15.6 % (12.1-15.1); White Blood Count 7.2 10^3/uL (4.0-10.0)
[2021-03-23 09:25] LABS: Alanine Aminotransferase 14 U/L (0-41); Albumin Level 3.9 g/dL (3.5-5.2); Alkaline Phosphatase 67 IU/L (40-130); Anion Gap 14.2 (5-19); Aspartate Amino Transferase 14 U/L (0-40); Blood Urea Nitrogen 7 mg/dL (8-23); Calcium 9.2 mg/dL (8.5-10.5); Carbon Dioxide 26 mmol/L (22-29); Chloride 98 mmol/L (98-107); Globulin 2.7 g/dL (1.3-4.6); Glucose 138 mg/dL (65-115); Osmolality Calculated 278 mOsm/kg (285-295); Potassium 4.2 mmol/L (3.5-5.1); Sodium 134 mmol/L (136-145); Thyroid Stimulating Hormone 9.81 uIU/mL (0.27-4.20); Total Bilirubin 0.3 mg/dL (0.15-1.2); Total Protein 6.6 g/dL (6.6-8.7)
[2021-03-23] MEDS: sodium chloride 0.9% 250 ML 75 ML IV (11:23)
--- NOTE | 2021-03-27 11:19 | ONC FU_ITS ---
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 Funez is a 75-year-old gentleman with a history of COPD. He went to [facility] on November 26, 2019 with 3-day history of right flank pain. He reported his pain was radiating to with right pelvis. A CT scan of abdomen pelvis was done on November 26, 2019 which showed no urinary tract calculus or obstruction normal appendix; calcified right lower lobe pulmonary granuloma. On January 09, 2020, he had a chest x-ray done for chest pain and found to have right upper lung mass. He subsequently underwent CT scan of chest which confirmed right upper lobe lung mass measuring 2.7 x 3.1 cm. The lesion was subpleural and also showed mediastinal and hilar lymphadenopathy. He underwent transthoracic needle biopsy on February 06, 2020. He also underwent bronchoscopy and transbronchial needle aspiration of station 4R and 10 R lymph node. 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 Immunohistochemistry were negative for TTF-1, Napsin and p63 and CK 20 so based on this immunoprofile tumor was not overtly designated as a lung primary. Mr Funez has history of coronary artery disease status post stent placement and also has peripheral vascular disease. Patient denies any hemoptysis or hematemesis, denies any weight loss, denies any poor appetite,. Denies any headaches blurred vision or double vision. As per patient he has history of bladder cancer, diagnosed in 2006 or 8 at that time tumor was removed and he was given intravesical therapy. And followed by yearly exam until recently with no evidence of recurrence of disease. 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 He was evaluated by a vascular surgeon for intervention stenting or arterial bypass , As per patient bilateral femoral artery stenting was done on April 15, 2020 And on same day he underwent coronary artery stenting done, tolerated procedure very well and he was started on Plavix and aspirin. PET/CT scan from March 10, 2020 showed marked increase of metabolic activity in the anterior right upper lung lobe size about 2.6 x 3.2 cm consistent with neoplasia and there is extensive mediastinal lymph node involvement of anterior/prevascular lymph nodes, right paratracheal, precarinal with an index lesion measuring 1.4 x 2.0 cm with SUV of 6.75 and right hilar lymph node. No evidence of distant metastatic disease MRI scan of the brain done on April 06, 2020 showed no evidence of metastatic disease Tumor marker CA 19???9 was 18.37, PSA 0.673, and CEA 138.7., Patient had ENT evaluation done which shows no evidence of head or neck cancer EGD Was done on April 01, 2020, it was normal exam, As per patient he had colonoscopy done last year and it was unremarkable Mr Funez was offered treatment with concurrent chemoradiation and started with weekly carboplatin/Taxol on May 11, 2020. He has tolerated it well but has required growth factor support for neutropenia. He completed combined chemoradiation therapy on June 23, 2020. Follow-up PET/CT scan done on July 25, 2020 showed right upper lobe mass measured 2.3 x 1.8 cm, with SUV of 3.2 compared to 2.6 x 3.[address] PET scan done on March 10, 2020. The right upper lobe hilar lymph node had a SUV of 4.5. Other scattered mediastinal lymph nodes are subcentimeter in size and FDG negative no evidence of distant mets. Mr Funez started on maintenance durvalumab every 2 weeks for 12 months on July 28, 2020. He had follow-up arterial duplex of the right lower extremity on August 12, 2019 through the ER. He presented with pain from his knee to his ankle on the right leg. He has a history of stents in his groin in November 2019 per his report. The arterial Doppler did report features of high-grade stenosis in the distal superficial femoral artery on the right side. There are abnormal Doppler waveforms suggestive of collateral filling of the popliteal and infrapopliteal vessels. Severely diminished resting KATHERYN 0.4 on the right side. There were no similar previous studies available for comparison. Mr. Funez does have follow-up with cardiology regarding these findings. He presented for followup with complaints of right leg pain. Mr Funez recently underwent right leg vascular surgery and is being followed by a vascular surgeon in [place] as well as his special needs babysitter here in [place]. Mr Funez reports that his vascular surgeon informed him to continue with immunotherapy while undergoing management for peripheral vascular disease. His immunotherapy been placed on hold from his first cycle on July 28, 2020 but he did resume it on October 15, 2020. And on December 29, 2020, his durvalumab dose was changed to 1500 mg fixed every 4 weeks Follow-up CT PET scan done on December 12, 2020 shows extensive right lobe atelectasis and mass seen on prior study cannot be differentiated from adjacent atelectatic lung. Low-grade, diffuse FDG activity is consistent with inflammatory uptake. Right hilar lymph node previously seen is now resolved. Right pleural effusion. Mr. Funez is here today for follow-up and consideration of his monthly dose of Imfinzi/durvalumab. He states overall he is about the same. He states he is still having some cough but states it is no worse than what it has been. He has episodes where he coughed up a little bit of blood here and there but has been that way since August . He states it is no worse no better but definitely no worse. He denies any fever or chills. He denies any new shortness of breath or orthopnea. His activity level is the same. He continues to be relatively active. His appetite is good. He denies any any new fatigue. He states actually his energy is some better since regulating his thyroid. He denies mouth sores, sore throat or difficulty swallowing. He has had no chest pain or palpitations. He denies any diarrhea or constipation. He denies any new pain or lower extremity edema. His ECOG is 0. Past Medical History: Peripheral neuropathy Peripheral vascular disease Type II diabetes Covid in 2020 History of bladder cancer in 2006 Past Surgical History: EGD PORTHACATHER PLACEMENT DR. VIVIAN De La Torre and nicole covid vaccine in 2020 Colonoscopy in 2019 Allergies: No Known Allergies. Medications: Acarbose 1 Tablet (of 100 mg) Oral t.i.d. Aspirin 1 Tablet (of 81 mg) Tablet, enteric coated Oral daily Atorvastatin Calcium 1 Tablet (of 80 mg) Oral daily Benzonatate (100 mg) Capsule Oral t.i.d. Cetirizine HCl 1 Tablet (of 10 mg) Oral daily Cholecalciferol 1 Capsule (of 25 mcg ) Oral daily Cilostazol 1 Tablet (of 50 mg) Oral b.i.d. Clopidogrel Bisulfate 1 Tablet (of 75 mg) Oral daily Flonase Suspension Nasal Furosemide 1 Tablet (of 20 mg) Oral daily Insulin Aspart Subcutaneous Insulin Glargine 10 Units (of 100 Units/mL) Subcutaneous daily Isosorbide Mononitrate ER 1 Tablet (of 30 mg) Tablet SR 24 HR Oral daily Lisinopril 1 Tablet (of 40 mg) Oral daily metFORMIN HCl 1 Tablet (of 850 mg) Oral t.i.d. Multivitamin 1 Tablet Oral daily Naproxen 1 Tablet (of 250 mg) Oral q 8 hours PRN Stiolto Respimat Aerosol, solution Inhalation Family History: Mr. Funez's mother is alive. Mr. Funez's father at age 69: lung cancer. Mr. Funez has 1 brother who is : stroke. He has 1 sister who is : stroke. Social History: Mr. Funez is and he is an unknown. Mr. Funez quit smoking 14 years ago but had smoked 2.5 packs/day for 50 years. He has no history of drinking. Review Of Symptoms: <See Above> Vital Signs: Performed on Mar 23, 2021 10:21 Height - 70.00 in Weight - 190.4 lbs (HIGH) BSA - 2.04 sq.m BMI - 27.32 Temperature - 98.3 F (LOW) Pulse - 89 /min Respiration - 18 /min BP - 116/64 mm(hg) O2 Sat - 96 % Pain - 0 Fatigue - 3,1 - No physically strenuous activity, but ambulatory and able to carry out light or sedentary work (e.g. office work, light house work). (ECOG) Physical Examination: Constitutional Alert, oriented, no acute distress. Skin pink, warm and dry. Head Normocephalic; atraumatic. Eyes Conjunctivae and sclerae are clear and without icterus. Pupils are reactive and equal. ENMT No oral exudates, ulcers, masses, thrush or mucositis. Oropharynx clear. Tongue normal. Neck Supple without masses or thyromegaly. No jugular venous distension. Hematologic/Lymphatic No petechiae or purpura. No tender or palpable lymph nodes in the cervical or supraclavicular areas. Respiratory Lungs are diminished to auscultation without rhonchi or wheezing. Cardiovascular Regular rate and rhythm of heart without murmurs,clicks, gallops or rubs. Abdomen Non-tender, non-distended, no masses or ascites. Good bowel sounds noted in all quads. No guarding or rebound tenderness. No pulsatile masses. Back/Spine Non-tender to palpation. Extremities No visible deformities, no cyanosis, clubbing or edema. NO coldness or pain on palpation of right LE. Musculoskeletal No tenderness or swelling, normal range of motion without obvious weakness. Integumentary No rashes or lesions. Neurologic No sensory or motor deficits, normal cerebellar function, slow gait. Psychiatric Alert and oriented times three. Coherent speech. Verbalizes understanding of our discussions today. Laboratory:Test performed on Mar 23, 2021 08:41 Sodium 134 mmol/L TSH 9.81 uIU/mL Potassium 4.2 mmol/L Chloride 98 mmol/L CO2 26 mmol/L Anion Gap 14.2 BUN 7 mg/dL Creatinine 0.4 mg/dL Cr Clearance (Est) 191.92 mL/min Glucose 138 mg/dL Osmolality - Calculated 278 mOsm/kg Calcium 9.2 mg/dL Protein, Total 6.6 g/dL Albumin 3.9 g/dL Globulin 2.7 g/dL Bilirubin, Total 0.3 mg/dL ALT (SGPT) 14 U/L AST (SGOT) 14 U/L Alkaline Phosphatase 67 IU/L WBC 7.2 10 3/uL RBC 3.73 10 6/uL HGB 11.6 g/dL HCT 35.4 % MCV 94.9 fl MCH 31.1 pg MCHC 32.8 g/dL RDW 15.6 % Platelet Count 260 10 3/cmm MPV 8.2 fL Neutrophils 4.22 10 3/uL Lymphocytes 1.2 10 3/uL Monocytes 0.6 10 3/uL Eosinophils 1.1 10 3/uL Basophils 0.1 10 3/uL Neutrophil % 58.9 % Lymphocyte % 16.1 % Monocyte % 8.8 % Eosinophil % 14.8 % Basophils % 1.1 % NRBC % 0 % 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 CT scan of abdomen pelvis done in November 2019 showed no evidence of metastatic disease ENT, EGD evaluation showed no evidence of head and neck cancer, as per Patient, he had colonoscopy done last year it was unremarkable tumor marker CA 19???9 18.37 CEA 138[address] PET scan done on March 10, 2020 showed right upper lobe mass measuring 2.6 x 3.2 cm with SUV of 10.30, extensive mediastinal lymphadenopathy along with right hilar lymph node. No distant metastatic disease a single rib, right 10th rib laterally demonstrated on heparin fracture with callus formation .MRI scan of the head done on April 06, 2020 showed no evidence of metastatic disease, Clinical stage IIIa Started on combined chemoradiation with weekly carboplatin/Taxol on May 11, 2020 Completed on June 23, 2020 Started on maintenance therapy with durvalumab on July 28, 2020 follow-up CT PET scan done on December 12, 2020 showed right upper lobe atelectasis and consolidation with inflammatory FDG uptake, right hilar lymph node seen on prior study is resolved. The right pleural effusion has developed. Diabetes and related complication ? diabetic neuropathyOr vascular as patient has been severe peripheral vascular disease involving bilateral feet Peripheral vascular disease,Status post bilateral femoral arterial stenting Done on April 15, 2020 CAD status post stent placement.Due to progressive coronary artery disease coronary artery stenting Done on April 15, 2020 Plan/Problems Addressed at this Visit: 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 CT scan of abdomen pelvis done in November 2019 showed no evidence of metastatic disease ENT, EGD evaluation showed no evidence of head and neck cancer, as per Patient, he had colonoscopy done last year it was unremarkable tumor marker CA 19???9 18.37 CEA 138.[address] PET scan done on March 10, 2020 showed right upper lobe mass measuring 2.6 x 3.2 cm with SUV of 10.30, extensive mediastinal lymphadenopathy along with right hilar lymph node. No distant metastatic disease a single rib, right 10th rib laterally demonstrated on heparin fracture with callus formation .MRI scan of the head done on April 06, 2020 showed no evidence of metastatic disease, Clinical stage IIIa Started on combined chemoradiation with weekly carboplatin/Taxol on May 11, 2020 Completed on June 23, 2020 Started on maintenance therapy with durvalumab on July 28, 2020 follow-up CT PET scan done on December 12, 2020 showed right upper lobe atelectasis and consolidation with inflammatory FDG uptake, right hilar lymph node seen on prior study is resolved. The right pleural effusion has developed. A. Proceed with scheduled durvalumab today at 1500 mg. B. Today's labs reviewed in detail discussed with and Mrs. Funez and a copy was given to them. WBC 7.2, hemoglobin 11.5, platelets 260,000, ANC is 4220. Potassium 4.2 random glucose is 138 creatinine 0.4 and LFTs are normal. His TSH has greatly improved from 20.51 on March 02 2021-9.8 today. C. For his immunotherapy induced thyroiditis we will continue his Synthroid at 100 mcg daily as his TSH is correcting well. I was concerned adjusting his dose made drop his level too low and make him hyperthyroid. D. We will plan to see him back in 1 month with CBC, CMP and repeat TSH. E. I have asked for restaging PET CT given that he continues to have hemoptysis and cough. His last PET/CT was December 12, 2020. F. Mr. Funez was encouraged to contact us in interim should questions or problems arise. Signed By: Felipa Lucio-, AOP Nuno Campbell MD <<Signature on File>>
== END 2021-03-23 08:16 | disposition home or self-care (01) ==
LOC: ONCMED 08:17
PROVIDERS: PCP Family Medicine; Visit Provider Nurse Practitioner
DX: Z51.12 Encounter for antineoplastic immunotherapy (principal); C34.11 Malignant neoplasm of upper lobe, right bronchus or lung; C77.8 Secondary and unspecified malignant neoplasm of lymph nodes of multiple regions; J98.11 Atelectasis; J90 Pleural effusion, not elsewhere classified; E11.42 Type 2 diabetes mellitus with diabetic polyneuropathy; E11.59 Type 2 diabetes mellitus with other circulatory complications; I73.9 Peripheral vascular disease, unspecified; I25.10 Atherosclerotic heart disease of native coronary artery without angina pectoris; Z79.899 Other long term (current) drug therapy; Z92.21 Personal history of antineoplastic chemotherapy; Z92.3 Personal history of irradiation
CPT/HCPCS: 80053; 84443; 85025; 96413; 99215; J7050; J9173

== ENCOUNTER 2021-04-20 08:25 | Outpatient (CLI) | payer OTHER, SELFPAY ==
[2021-04-20 08:51] LABS: Basophils # 0.1 10^3/uL (0.0-0.1); Basophils % 1.3 %; Eosinophils # 1.2 10^3/uL (0.0-0.8); Eosinophils % 16.2 %; Hematocrit 36.7 % (42.0-52.0); Lymphocytes # 1.2 10^3/uL (0.8-4.8); Lymphocytes % 16.8 %; Mean Corpuscular HGB Conc 32.7 g/dL (30.0-36.0); Mean Corpuscular Hemoglobin 30.7 pg (28.0-34.0); Mean Corpuscular Volume 93.9 fl (80-94); Mean Platelet Volume 8.2 fL (7.4-10.4); Monocytes # 0.8 10^3/uL (0.2-0.9); Monocytes % 10.6 %; Neutrophils # 3.93 10^3/uL (1.8-7.7); Nucleated Red Blood Cells % 0 %; Platelet Count 270 10^3/cmm (130-400); Red Blood Count 3.91 10^6/uL (4.1-5.3); Red Cell Distribution Width 14.8 % (12.1-15.1); White Blood Count 7.2 10^3/uL (4.0-10.0)
[2021-04-20 09:19] LABS: Alanine Aminotransferase 20 U/L (0-41); Albumin Level 4.1 g/dL (3.5-5.2); Alkaline Phosphatase 68 IU/L (40-130); Anion Gap 15.3 (5-19); Aspartate Amino Transferase 18 U/L (0-40); Blood Urea Nitrogen 8 mg/dL (8-23); Calcium 9.3 mg/dL (8.5-10.5); Carbon Dioxide 25 mmol/L (22-29); Chloride 98 mmol/L (98-107); Globulin 2.7 g/dL (1.3-4.6); Glucose 192 mg/dL (65-115); Osmolality Calculated 282 mOsm/kg (285-295); Potassium 4.3 mmol/L (3.5-5.1); Sodium 134 mmol/L (136-145); Thyroid Stimulating Hormone 23.83 uIU/mL (0.27-4.20); Total Bilirubin 0.2 mg/dL (0.15-1.2); Total Protein 6.8 g/dL (6.6-8.7)
--- NOTE | 2021-04-20 14:14 | ONC FU_ITS ---
Dr. Campbell follow up note Patient: Marbin Funez V Unit #: [id number]: [id number] Dicatated By: Nuno Campbell M.D.Date of Visit:Apr 20, 2021 Onc Med Follow-up/Prog Note History of Present Illness: Mr. Funez is a 75-year-old gentleman with a history of COPD. He went to [facility] on November 26, 2019 with 3-day history of right flank pain. He reported his pain was radiating to with right pelvis. A CT scan of abdomen pelvis was done on November 26, 2019 which showed no urinary tract calculus or obstruction normal appendix; calcified right lower lobe pulmonary granuloma. On January 09, 2020, he had a chest x-ray done for chest pain and found to have right upper lung mass. He subsequently underwent CT scan of chest which confirmed right upper lobe lung mass measuring 2.7 x 3.1 cm. The lesion was subpleural and also showed mediastinal and hilar lymphadenopathy. He underwent transthoracic needle biopsy on February 06, 2020. He also underwent bronchoscopy and transbronchial needle aspiration of station 4R and 10 R lymph node. 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 Immunohistochemistry were negative for TTF-1, Napsin and p63 and CK 20 so based on this immunoprofile tumor was not overtly designated as a lung primary. Mr Funez has history of coronary artery disease status post stent placement and also has peripheral vascular disease. Patient denies any hemoptysis or hematemesis, denies any weight loss, denies any poor appetite,. Denies any headaches blurred vision or double vision. As per patient he has history of bladder cancer, diagnosed in 2007 or 8 at that time tumor was removed and he was given intravesical therapy. And followed by yearly exam until recently with no evidence of recurrence of disease. 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 He was evaluated by a vascular surgeon for intervention stenting or arterial bypass , As per patient bilateral femoral artery stenting was done on April 15, 2020 And on same day he underwent coronary artery stenting done, tolerated procedure very well and he was started on Plavix and aspirin. PET/CT scan from March 10, 2020 showed marked increase of metabolic activity in the anterior right upper lung lobe size about 2.6 x 3.2 cm consistent with neoplasia and there is extensive mediastinal lymph node involvement of anterior/prevascular lymph nodes, right paratracheal, precarinal with an index lesion measuring 1.4 x 2.0 cm with SUV of 6.75 and right hilar lymph node. No evidence of distant metastatic disease MRI scan of the brain done on April 06, 2020 showed no evidence of metastatic disease Tumor marker CA 19???9 was 18.37, PSA 0.673, and CEA 138.7., Patient had ENT evaluation done which shows no evidence of head or neck cancer EGD Was done on April 01, 2020, it was normal exam, As per patient he had colonoscopy done last year and it was unremarkable Mr Funez was offered treatment with concurrent chemoradiation and started with weekly carboplatin/Taxol on May 11, 2020. He has tolerated it well but has required growth factor support for neutropenia. He completed combined chemoradiation therapy on June 23, 2020. Follow-up PET/CT scan done on July 25, 2020 showed right upper lobe mass measured 2.3 x 1.8 cm, with SUV of 3.2 compared to 2.6 x 3.[address] PET scan done on March 10, 2020. The right upper lobe hilar lymph node had a SUV of 4.5. Other scattered mediastinal lymph nodes are subcentimeter in size and FDG negative no evidence of distant mets. Mr Funez started on maintenance durvalumab every 2 weeks for 12 months on July 28, 2020. He had follow-up arterial duplex of the right lower extremity on August 12, 2019 through the ER. He presented with pain from his knee to his ankle on the right leg. He has a history of stents in his groin in November 2019 per his report. The arterial Doppler did report features of high-grade stenosis in the distal superficial femoral artery on the right side. There are abnormal Doppler waveforms suggestive of collateral filling of the popliteal and infrapopliteal vessels. Severely diminished resting KATHERYN 0.4 on the right side. There were no similar previous studies available for comparison. Mr. Fnuez does have follow-up with cardiology regarding these findings. He presented for followup with complaints of right leg pain. 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 Mr Funez reports that his vascular surgeon informed him to continue with immunotherapy while undergoing management for peripheral vascular disease. His immunotherapy been placed on hold from his first cycle on July 28, 2020 but he did resume it on October 15, 2020. And on December 29, 2020, his durvalumab dose was changed to 1500 mg fixed every 4 weeks Follow-up CT PET scan done on December 12, 2020 shows extensive right lobe atelectasis and mass seen on prior study cannot be differentiated from adjacent atelectatic lung. Low-grade, diffuse FDG activity is consistent with inflammatory uptake. Right hilar lymph node previously seen is now resolved. Right pleural effusion. Came for follow-up, complaining of off and on cough with sometimes blood-streaked sputum, no fever chills, no nausea or vomiting, no diarrhea constipation, no chest pain, no hemoptysis or hematemesis, no headaches blurred and double vision, no new bony pains, patient had CT PET scan done on last Monday but his report is pending due to technical issues with the system. Patient is tolerating maintenance immunotherapy well otherwise Medications: Acarbose 1 Tablet (of 100 mg) Oral t.i.d., Aspirin 1 Tablet (of 81 mg) Tablet, enteric coated Oral daily, Atorvastatin Calcium 1 Tablet (of 80 mg) Oral daily, Benzonatate (100 mg) Capsule Oral t.i.d., Cetirizine HCl 1 Tablet (of 10 mg) Oral daily, Cholecalciferol 1 Capsule (of 25 mcg ) Oral daily, Cilostazol 1 Tablet (of 50 mg) Oral b.i.d., Clopidogrel Bisulfate 1 Tablet (of 75 mg) Oral daily, Flonase Suspension Nasal, Furosemide 1 Tablet (of 20 mg) Oral daily, Insulin Aspart Subcutaneous, Insulin Glargine 10 Units (of 100 Units/mL) Subcutaneous daily, Isosorbide Mononitrate ER 1 Tablet (of 30 mg) Tablet SR 24 HR Oral daily, Lisinopril 1 Tablet (of 40 mg) Oral daily, metFORMIN HCl 1 Tablet (of 850 mg) Oral t.i.d., Mucinex Allergy 1 Tablet (of 180 mg) Oral daily, Multivitamin 1 Tablet Oral daily, Naproxen 1 Tablet (of 250 mg) Oral q 8 hours PRN, Stiolto Respimat Aerosol, solution Inhalation Allergies: No Known Allergies. Review of Systems: Review of Systems is not available for this patient. Vital Signs: Performed on Apr 20, 2021 10:05 Height - 70.00 in Weight - 192.2 lbs (HIGH) BSA - 2.05 sq.m BMI - 27.58 Temperature - 97.8 F (LOW) Pulse - 83 /min Respiration - 18 /min BP - 127/66 mm(hg) O2 Sat - 97 % Pain - 3 Fatigue - 2 Performance Status: 0 - Fully active, able to carry on all predisease activities without restrictions. (ECOG) Physical Examination: ENMT - No mouth sores, no thrush, no jaundice, Respiratory - Lungs are clear to auscultation, Cardiovascular - Regular rate and rhythm of heart, Abdomen - Soft, bowel sounds present, Extremities - No visible edema or rash. Lab/Imaging: Test performed on Mar 23, 2021 08:41 Sodium 134 mmol/L TSH 9.81 uIU/mL Potassium 4.2 mmol/L Chloride 98 mmol/L CO2 26 mmol/L Anion Gap 14.2 BUN 7 mg/dL Creatinine 0.4 mg/dL Cr Clearance (Est) 191.92 mL/min Glucose 138 mg/dL Osmolality - Calculated 278 mOsm/kg Calcium 9.2 mg/dL Protein, Total 6.6 g/dL Albumin 3.9 g/dL Globulin 2.7 g/dL Bilirubin, Total 0.3 mg/dL ALT (SGPT) 14 U/L AST (SGOT) 14 U/L Alkaline Phosphatase 67 IU/L WBC 7.2 10 3/uL RBC 3.73 10 6/uL HGB 11.6 g/dL HCT 35.4 % MCV 94.9 fl MCH 31.1 pg MCHC 32.8 g/dL RDW 15.6 % Platelet Count 260 10 3/cmm MPV 8.2 fL Neutrophils 4.22 10 3/uL Lymphocytes 1.2 10 3/uL Monocytes 0.6 10 3/uL Eosinophils 1.1 10 3/uL Basophils 0.1 10 3/uL Neutrophil % 58.9 % Lymphocyte % 16.1 % Monocyte % 8.8 % Eosinophil % 14.8 % Basophils % 1.1 % NRBC % 0 % 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 CT scan of abdomen pelvis done in November 2019 showed no evidence of metastatic disease ENT, EGD evaluation showed no evidence of head and neck cancer, as per Patient, he had colonoscopy done last year it was unremarkable tumor marker CA 19???9 18.37 CEA [address] PET scan done on March 10, 2020 showed right upper lobe mass measuring 2.6 x 3.2 cm with SUV of 10.30, extensive mediastinal lymphadenopathy along with right hilar lymph node. No distant metastatic disease a single rib, right 10th rib laterally demonstrated on heparin fracture with callus formation .MRI scan of the head done on April 06, 2020 showed no evidence of metastatic disease, Clinical stage IIIa Started on combined chemoradiation with weekly carboplatin/Taxol on May 11, 2020 Completed on June 23, 2020 Started on maintenance therapy with durvalumab on July 28, 2020 follow-up CT PET scan done on December 12, 2020 showed right upper lobe atelectasis and consolidation with inflammatory FDG uptake, right hilar lymph node seen on prior study is resolved. The right pleural effusion has developed. Diabetes and related complication ? diabetic neuropathyOr vascular as patient has been severe peripheral vascular disease involving bilateral feet Peripheral vascular disease,Status post bilateral femoral arterial stenting Done on April 15, 2020 CAD status post stent placement.Due to progressive coronary artery disease coronary artery stenting Done on April 15, 2020 Plan: Discussed with patient regarding his labs white blood count 7.2 hemoglobin 12 hematocrit 36.7 platelets 270,000 CMP within normal limits except glucose 192 and his TSH is 23.83 compared to 9.81 on March 23, 2021 Clinically, patient is doing well, tolerating maintenance immunotherapy with durvalumab well, will proceed with his next monthly dose cycle #7 today and then he will return to clinic in 1 month with CBC CMP Patient was advised to watch his blood sugar And he had follow-up CT PET scan done on last Monday, report is pending, will follow and review when available. 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 daily, his follow-up TSH level shows worsening, will consider increasing Synthroid dose 250 mcg p.o. daily for 1 week and repeat TSH and then adjust dose accordingly, we will also refer him to endocrinology for evaluation regarding immunotherapy induced endocrinopathy. As far as, cough with blood streaked sputum is concerned, could be due to bronchitis, patient is following pulmonology, if there is a worsening, may benefit from bronchoscopy Signed By: Nuno Campbell M.D. <<Signature on File>>
== END 2021-04-20 08:26 | disposition home or self-care (01) ==
LOC: ONCMED 08:26
PROVIDERS: PCP Family Medicine; Visit Provider Internal Medicine Hematology & Oncology
DX: Z51.12 Encounter for antineoplastic immunotherapy (principal); C34.11 Malignant neoplasm of upper lobe, right bronchus or lung; C77.8 Secondary and unspecified malignant neoplasm of lymph nodes of multiple regions; R97.8 Other abnormal tumor markers; E11.42 Type 2 diabetes mellitus with diabetic polyneuropathy; E11.59 Type 2 diabetes mellitus with other circulatory complications; I73.9 Peripheral vascular disease, unspecified; I25.10 Atherosclerotic heart disease of native coronary artery without angina pectoris; Z79.899 Other long term (current) drug therapy
CPT/HCPCS: 80053; 84443; 85025; 96413; 99215; J7050; J9173

== ENCOUNTER 2021-04-28 06:47 | Outpatient (CLI) | payer OTHER, SELFPAY ==
[2021-04-28 13:30] LABS: Thyroid Stimulating Hormone 10.37 uIU/mL (0.27-4.20)
== END 2021-04-28 06:48 | disposition home or self-care (01) ==
LOC: ONCMED 06:50
PROVIDERS: PCP Family Medicine; Visit Provider Nurse Practitioner Family
DX: C34.11 Malignant neoplasm of upper lobe, right bronchus or lung (principal); C77.8 Secondary and unspecified malignant neoplasm of lymph nodes of multiple regions; J98.11 Atelectasis; J90 Pleural effusion, not elsewhere classified; E11.42 Type 2 diabetes mellitus with diabetic polyneuropathy; E11.59 Type 2 diabetes mellitus with other circulatory complications; I73.9 Peripheral vascular disease, unspecified; I25.10 Atherosclerotic heart disease of native coronary artery without angina pectoris; Z95.818 Presence of other cardiac implants and grafts; E03.9 Hypothyroidism, unspecified; Z79.899 Other long term (current) drug therapy; Z92.21 Personal history of antineoplastic chemotherapy; Z92.3 Personal history of irradiation
CPT/HCPCS: 36591; 84443; 99214

== ENCOUNTER → 2021-04-29 09:55 | Outpatient (BNVA) | payer OTHER, SELFPAY | PROVIDERS: PCP Family Medicine; Referring Provider Family Medicine; Visit Provider Internal Medicine | DX: E11.42 Type 2 diabetes mellitus with diabetic polyneuropathy (principal); E03.9 Hypothyroidism, unspecified; E78.5 Hyperlipidemia, unspecified; I73.9 Peripheral vascular disease, unspecified; I25.10 Atherosclerotic heart disease of native coronary artery without angina pectoris; Z79.84 Long term (current) use of oral hypoglycemic drugs; Z79.4 Long term (current) use of insulin | CPT/HCPCS: 99204 ==

== ENCOUNTER 2021-05-04 23:11 | Emergency (ER) | payer OTHER, MEDICARE, SELFPAY ==
[2021-05-04 23:30] VITALS: BP 98/66; PULSE 94; RESP 18; TEMP 36.9; O2SAT 96; BMI 27.9
--- NOTE | 2021-05-04 23:38 | W.ED.DENTAL ---
HPI - Dental/Oral General: Chief complaint: Dental/Oral Stated complaint: bleeding tooth extraction Time Seen by Provider: 05/04/21 23:36 History of Present Illness: HPI Narrative: Patient is a 75-year-old male who comes to the ED with bleeding after tooth extraction. Patient says that around 3:00 today he had 2 teeth removed. Patient states he usually takes Eliquis but was advised to stop taking it 2 days prior to surgery. He states he still having bleeding from the tooth extraction. Patient has used multiple causes and packing at home to dry control bleeding has been unable to. He states that he is feeling a little fatigued/lightheaded now. Denies any other symptoms or complaints. Associated symptoms: Denies fever(s) or odynophagia Review of Systems Narrative: Postop bleeding from dental tooth extraction. Const: Reports: fatigue (Fatigue/lightheaded); Denies: fever(s) or chills Eyes: Denies: change in vision or eye discomfort ENMT: Denies: throat pain, odynophagia, nasal discharge or nasal congestion Card: Denies: chest pain, palpitations, edema, swelling of feet/ankles, dyspnea on exertion or orthopnea Resp: Denies: dyspnea, productive cough or non-productive cough GI: Denies: abdominal pain, nausea, vomiting, diarrhea, constipation or hematochezia : Denies: flank pain, difficulty urinating, dysuria or hematuria Musc: Denies: neck pain, back pain or extremity swelling Skin/Breast: Denies: rash or new lesions Neuro: Denies: headache(s), numbness in extremities or weakness in extremities PFSH ED PFSH: Medical History Bladder cancer Lung nodule PVD (peripheral vascular disease) Type 2 diabetes mellitus with diabetic polyneuropathy Surgical History H/O colonoscopy H/O esophagogastroduodenoscopy (04/01/20) H/O heart artery stent History of bladder surgery History of bronchoscopy History of surgical removal of pilonidal cyst Port-A-Cath in place (04/01/20) Family History Other CAD (coronary artery disease) Cancer Diabetes Hyperlipidemia Hypertension Lung disease Denies family history of Clotting disorder Dementia Psychiatric illness Chronic kidney disease (CKD) Suicide Anesthesia complication Bleeding disorder Family history of premature coronary artery disease Stroke Social History Quit status (tobacco): has quit using tobacco Year quit tobacco: 06-17 PPD x 45 Years Smoking risk assessment/counseling performed?: No Alcohol intake: never Counseling given: No Counseling given: No Lives independently: Yes Household members: spouse Marital status: service: Yes Current occupational status: retired History of recent travel: No Current gender identity: Male Physical Exam Const: COMMON NORMALS: no acute distress, patient oriented x3 and alert GENERAL APPEARANCE: cooperative and comfortable HENMT: COMMON NORMALS: normocephalic HEAD & SCALP: normocephalic MOUTH: Normal oral and palatal mucosa present THROAT: posterior oropharynx normal and uvula midline OTHER: Left lower molar #17 appears to be removed and no active bleeding seen at that site. Upper right jaw tooth #6 removed and there is some minimal active bleeding at that site currently. Neck/C-Spine: COMMON NORMALS: supple GENERAL: Yes normal visual inspection Resp: COMMON NORMALS: normal respiratory effort, No retractions, No use of accessory muscles and clear to auscultation bilaterally AUSCULTATION: clear to auscultation bilaterally Cardio: COMMON NORMALS: regular rate, regular rhythm, S1 normal heart sound present, S2 normal heart sound present, No gallops present (Cardio), No clicks present (Cardio), No murmurs present (Cardio) and Peripheral pulses 2+ throughout RATE: regular rate RHYTHM: regular rhythm HEART SOUNDS: S1 normal heart sound present and S2 normal heart sound present PERIPHERAL PULSES: Peripheral pulses 2+ throughout GI: COMMON NORMALS: Normal to inspection, nondistended, normoactive bowel sounds present, Soft to palpation, non-tender and no masses PALPATION: Yes Soft to palpation : COMMON NORMALS: Yes no CVA tenderness BLADDER/KIDNEY EXAM: Yes no CVA tenderness Back/Pelvis: COMMON NORMALS: no CVA tenderness Extremity: COMMON NORMALS: normal to inspection Neuro: COMMON NORMALS: patient oriented x3 and moves all extremities SENSORIUM/ORIENTATION: Yes alert Skin: GENERAL SKIN EXAM: dry skin Course ED course: Patient was still having a little bit of bleeding in front upper right tooth that was extracted. I placed some Surgicel over extraction site then some gauze. Patient's bleeding was well controlled and discharged home. He was told to contact his dentist and PCP to discuss starting back up his Eliquis. Return to ED precautions given. Patient understood and agreed with plan. Vital Signs: Vital signs: Vital Signs Temperature 97.9 F 05/05/21 01:37 Pulse Rate 65 05/05/21 01:37 Respiratory Rate 18 05/05/21 01:37 Blood Pressure 107/61 05/05/21 01:37 Pulse Oximetry 95 05/05/21 01:37 MDM - Dental/Oral MDM Narrative: Medical decision making narrative: Patient is a 75-year-old male comes to the ED with some bleeding post dental extraction approximately 8 hours ago. He stopped his Eliquis 2 days before surgery is supposed to start back up tomorrow. Patient was still having a little bit of bleeding in front upper right tooth that was extracted. I placed some Surgicel over extraction site then some gauze. Patient's bleeding was well controlled and discharged home. He was told to contact his dentist and PCP to discuss starting back up his Eliquis. Return to ED precautions given. Patient understood and agreed with plan. Lab Data: Attestation: I reviewed the patient's lab results. Labs: Lab Results 05/05/21 00:00 WBC 10.7 10^3/uL H 10 ^3/uL (4.0-10.0) RBC 3.41 10^6/uL L 10 ^6/uL (4.1-5.3) Hgb 10.5 g/dL L g/dL (11.7-16.6) Hct 31.7 % L % (42.0-52.0) MCV 93.0 fl fl (80-94) MCH 30.8 pg pg (28.0-34.0) MCHC 33.1 g/dL g/dL (30.0-36.0) RDW 14.2 % % (12.1-15.1) Plt Count 236 10^3/cmm 10^3 /cmm (130-400) MPV 8.5 fL fL (7.4-10.4) Neut % (Auto) 71.5 % % Lymph % (Auto) 11.4 % % [place] % (Auto) 8.0 % % Eos % (Auto) 8.0 % % Baso % (Auto) 0.8 % % Neut # (Auto) 7.64 10^3/uL 10^3 /uL (1.8-7.7) Lymph # (Auto) 1.2 10^3/uL 10^3/ uL (0.8-4.8) [place] # (Auto) 0.9 10^3/uL 10^3/ uL (0.2-0.9) Eos # (Auto) 0.9 10^3/uL H 10^ 3/uL (0.0-0.8) Baso # (Auto) 0.1 10^3/uL 10^3/ uL (0.0-0.1) Nucleated RBC % (a uto) 0 % % Nucleated RBCs # 0.0 /100WBC /100W BC Discharge Plan Discharge Patient Disposition: Home Clinical Impression: Postoperative bleeding from mouth Condition: Stable Prescriptions: No Action cholecalciferol (vitamin D3) 25 mcg (1,000 unit) capsule 25 mcg PO DAILY@0730 RF: 0 acarbose 100 mg tablet 100 mg PO TID@0730,1200,1800 RF: 0 metformin 850 mg tablet 850 mg PO TID@0730,1200,1800 RF: 0 Hold Instructions: Resume on 09/12/20. aspirin 81 mg tablet,delayed release (DR/EC) 81 mg PO DAILY@12 RF: 0 Centrum Silver 0.4-300-250 mg-mcg-mcg tablet 1 tab PO DAILY@0730 RF: 0 (DME) Sole supports Qty: 1 RF: 0 insulin aspart U-100 [Novolog Flexpen U-100 Insulin] 100 unit/mL (3 mL) insulin pen 12 unit SUBCUT TID RF: 0 insulin glargine 100 unit/mL (3 mL) insulin pen 40 unit SUBCUT DAILY@22 RF: 0 (DME) Custom orthotics See Rx Instructions .Route .MEDSUPPLY Qty: 1 RF: 0 isosorbide mononitrate 60 mg tablet extended release 24 hr 60 mg PO DAILY@0800 Qty: 90 RF: 3 (DME) Dexcom G6 Sensor Device See Rx Instructions .Route Qty: 3 RF: 3 (DME) Dexcom G6 Molecular Geneticist Misc See Rx Instructions .Route Qty: 1 RF: 0 (DME) Dexcom G6 Transmitter Device See Rx Instructions .Route Qty: 1 RF: 3 (DME) Diabetic shoes with custom inserts See Rx Instructions .Route .MEDSUPPLY Qty: 1 RF: 0 triamcinolone acetonide 0.1 % cream 1 applic topical TID PRN (Reason: Dermatitis) Qty: 30 RF: 5 benzonatate [Tessalon Perles] 100 mg capsule 100 mg PO TID PRN (Reason: cough) 30 Days Qty: 90 RF: 0 losartan 50 mg tablet 50 mg PO DAILY Qty: 90 RF: 2 nitroglycerin [Nitrostat] 0.4 mg tablet, sublingual 0.4 mg sublingual Q5M PRN (Reason: chest pain) Qty: 25 RF: 1 guaifenesin [Mucinex] 600 mg tablet extended release 12hr 600 mg PO BID Qty: 60 RF: 3 atorvastatin 40 mg tablet 40 mg PO DAILY@1800 Qty: 90 RF: 3 cetirizine 10 mg Tablet 10 mg PO DAILY RF: 0 clopidogrel 75 mg Tablet 75 mg PO DAILY RF: 0 polyethylene glycol 3350 17 gram/dose Powder 17 g PO DAILY RF: 0 fluticasone propionate 50 mcg/actuation [place],Suspension 1 spray INTRANASAL DAILY PRN (Reason: Allergy Symptoms) RF: 0 olodaterol 2.5 mcg/actuation mist 2 inh INHALATION DAILY@0800 RF: 0 acetaminophen [Tylenol Extra Strength] 500 mg Tablet 1,000 mg PO PRN RF: 0 ibuprofen 400 mg tablet 400 mg PO Q8H PRN (Reason: Leg pain) Qty: 30 RF: 0 Hold Instructions: Resume on 10/05/20. cilostazol 50 mg tablet 25 mg PO BID@0730,1800 RF: 0 Discharge Orders: Discharge ED (Routine); Ordered 05/05/21 Ordered By: Hans Bonilla Referrals: Shavonne Biswas MD [Primary Care Provider] - Discharge Diet: As Directed Discharge Activity: Increase activity as tolerated Activity Restrictions/Additional Instructions: Follow-up with medical provider as directed. Contact the dentist and your PCP to discuss when to start back up on your Eliquis, since you are having some bleeding from teeth extraction site. Have a follow-up appointment with your PCP to be reevaluated in the next 3 to 5 days and have your hemoglobin levels rechecked. Continue taking all meds as previously prescribed. Return to the ER or your medical provider if condition worsens. Please read and understand discharge instructions. Thank you for choosing [facility] for your healthcare needs today. Please realize this is an emergency room and that we are providing you with a medical screening exam and this may not be complete and all inclusive of all the testing and or work up that you may need to determine your ailment or severity of your illness. It is very important that you follow up as instructed or that you return to the Emergency Department should you have concerns or if your condition changes or worsens in any way. Coding Level of Care Code ED Net Applications Developer for Carmen Fwd Exam Comprehensive
[2021-05-05 00:13] LABS: Basophils # 0.1 10^3/uL (0.0-0.1); Basophils % 0.8 %; Eosinophils # 0.9 10^3/uL (0.0-0.8); Hematocrit 31.7 % (42.0-52.0); Hemoglobin 10.5 g/dL (11.7-16.6); Lymphocytes # 1.2 10^3/uL (0.8-4.8); Lymphocytes % 11.4 %; Mean Corpuscular HGB Conc 33.1 g/dL (30.0-36.0); Mean Corpuscular Hemoglobin 30.8 pg (28.0-34.0); Mean Platelet Volume 8.5 fL (7.4-10.4); Monocytes # 0.9 10^3/uL (0.2-0.9); Neutrophils # 7.64 10^3/uL (1.8-7.7); Neutrophils % 71.5 %; Nucleated Red Blood Cells % 0 %; Platelet Count 236 10^3/cmm (130-400); Red Blood Count 3.41 10^6/uL (4.1-5.3); Red Cell Distribution Width 14.2 % (12.1-15.1); White Blood Count 10.7 10^3/uL (4.0-10.0)
[2021-05-05 01:37] VITALS: BP 107/61; PULSE 65; RESP 18; TEMP 36.6; O2SAT 95
== END 2021-05-05 01:38 | disposition home or self-care (01) ==
PROVIDERS: Emergency Provider Physician Assistant; PCP Family Medicine
DX: K91.841 Postprocedural hemorrhage of a digestive system organ or structure following other procedure (principal); Z87.891 Personal history of nicotine dependence
CPT/HCPCS: 85025; 99283

== ENCOUNTER 2021-05-18 08:49 | Outpatient (CLI) | payer OTHER, MEDICARE, SELFPAY ==
[2021-05-18 09:09] LABS: Basophils # 0.1 10^3/uL (0.0-0.1); Basophils % 0.9 %; Eosinophils # 1.4 10^3/uL (0.0-0.8); Eosinophils % 17.7 %; Hematocrit 26.9 % (42.0-52.0); Hemoglobin 8.7 g/dL (11.7-16.6); Lymphocytes # 1.4 10^3/uL (0.8-4.8); Lymphocytes % 17.6 %; Mean Corpuscular HGB Conc 32.3 g/dL (30.0-36.0); Mean Corpuscular Hemoglobin 30.7 pg (28.0-34.0); Mean Corpuscular Volume 95.1 fl (80-94); Mean Platelet Volume 8.1 fL (7.4-10.4); Monocytes # 0.7 10^3/uL (0.2-0.9); Monocytes % 9.2 %; Neutrophils % 54.5 %; Nucleated Red Blood Cells % 0 %; Platelet Count 303 10^3/cmm (130-400); Red Blood Count 2.83 10^6/uL (4.1-5.3); Red Cell Distribution Width 14.6 % (12.1-15.1); White Blood Count 7.7 10^3/uL (4.0-10.0)
[2021-05-18 09:45] LABS: Alanine Aminotransferase 14 U/L (0-41); Albumin Level 3.9 g/dL (3.5-5.2); Alkaline Phosphatase 59 IU/L (40-130); Anion Gap 16.3 (5-19); Aspartate Amino Transferase 15 U/L (0-40); Blood Urea Nitrogen 12 mg/dL (8-23); Carbon Dioxide 23 mmol/L (22-29); Chloride 99 mmol/L (98-107); Globulin 2.3 g/dL (1.3-4.6); Glucose 142 mg/dL (65-115); Osmolality Calculated 280 mOsm/kg (285-295); Potassium 4.3 mmol/L (3.5-5.1); Sodium 134 mmol/L (136-145); Thyroid Stimulating Hormone 5.55 uIU/mL (0.27-4.20); Total Bilirubin 0.2 mg/dL (0.15-1.2); Total Protein 6.2 g/dL (6.6-8.7)
[2021-05-18 10:59] LABS: Reticulocyte % 3.6 % (0.5-2.0)
[2021-05-18 11:00] LABS: Ferritin 31 ng/mL (30-400); Iron 37 ug/dL (59-158); Percent Saturation 11.8 % (20-50); Total Iron Binding Capacity 312 mcg/dl; Unsaturated Iron Binding 275 ug/dL (112-347)
[2021-05-18 11:51] LABS: Add Urine Microscopic? NO; Charge for UA Resulting for Rev
[2021-05-18 12:02] LABS: Bilirubin Urine Neg (Negative); Blood Urine Neg (Negative); Glucose Urine UA Norm (Normal); Ketones Urine Negative (Negative); Leukocyte Esterase Urine Negative (Negative); Nitrate Urine Negative (Negative); Protein Urine Neg (Negative); Urine Appearance Clear (CLEAR); Urine Color Yellow (Yellow); Urobilinogen Urine Norm (Negative); pH Urine 6 (5-7)
[2021-05-18] MEDS: ferric carboxy (IVPB) 750 MG in sodium chloride 0.9% (100 ml) 100 ML 460 MG IV (12:13)
--- NOTE | 2021-05-18 14:45 | ONC FU_ITS ---
Dr. Campbell follow up note Patient: Marbin Funez V Unit #: [id number]: [id number] Dicatated By: Nuno Campbell M.D.Date of Visit:May 18, 2021 Onc Med Follow-up/Prog Note History of Present Illness: Mr. Funez is a 75-year-old gentleman with a history of COPD. He went to [facility] on November 26, 2019 with 3-day history of right flank pain. He reported his pain was radiating to with right pelvis. A CT scan of abdomen pelvis was done on November 26, 2019 which showed no urinary tract calculus or obstruction normal appendix; calcified right lower lobe pulmonary granuloma. On January 09, 2020, he had a chest x-ray done for chest pain and found to have right upper lung mass. He subsequently underwent CT scan of chest which confirmed right upper lobe lung mass measuring 2.7 x 3.1 cm. The lesion was subpleural and also showed mediastinal and hilar lymphadenopathy. He underwent transthoracic needle biopsy on February 06, 2020. He also underwent bronchoscopy and transbronchial needle aspiration of station 4R and 10 R lymph node. 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 Immunohistochemistry were negative for TTF-1, Napsin and p63 and CK 20 so based on this immunoprofile tumor was not overtly designated as a lung primary. Mr Funez has history of coronary artery disease status post stent placement and also has peripheral vascular disease. Patient denies any hemoptysis or hematemesis, denies any weight loss, denies any poor appetite,. Denies any headaches blurred vision or double vision. As per patient he has history of bladder cancer, diagnosed in 2007 or 8 at that time tumor was removed and he was given intravesical therapy. And followed by yearly exam until recently with no evidence of recurrence of disease. 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 He was evaluated by a vascular surgeon for intervention stenting or arterial bypass , As per patient bilateral femoral artery stenting was done on April 15, 2020 And on same day he underwent coronary artery stenting done, tolerated procedure very well and he was started on Plavix and aspirin. PET/CT scan from March 10, 2020 showed marked increase of metabolic activity in the anterior right upper lung lobe size about 2.6 x 3.2 cm consistent with neoplasia and there is extensive mediastinal lymph node involvement of anterior/prevascular lymph nodes, right paratracheal, precarinal with an index lesion measuring 1.4 x 2.0 cm with SUV of 6.75 and right hilar lymph node. No evidence of distant metastatic disease MRI scan of the brain done on April 06, 2020 showed no evidence of metastatic disease Tumor marker CA 19???9 was 18.37, PSA 0.673, and CEA 138.7., Patient had ENT evaluation done which shows no evidence of head or neck cancer EGD Was done on April 01, 2020, it was normal exam, As per patient he had colonoscopy done last year and it was unremarkable Mr Funez was offered treatment with concurrent chemoradiation and started with weekly carboplatin/Taxol on May 11, 2020. He has tolerated it well but has required growth factor support for neutropenia. He completed combined chemoradiation therapy on June 23, 2020. Follow-up PET/CT scan done on July 25, 2020 showed right upper lobe mass measured 2.3 x 1.8 cm, with SUV of 3.2 compared to 2.6 x 3.[address] PET scan done on March 10, 2020. The right upper lobe hilar lymph node had a SUV of 4.5. Other scattered mediastinal lymph nodes are subcentimeter in size and FDG negative no evidence of distant mets. Mr Funez started on maintenance durvalumab every 2 weeks for 12 months on July 28, 2020. He had follow-up arterial duplex of the right lower extremity on August 12, 2019 through the ER. He presented with pain from his knee to his ankle on the right leg. He has a history of stents in his groin in November 2019 per his report. The arterial Doppler did report features of high-grade stenosis in the distal superficial femoral artery on the right side. There are abnormal Doppler waveforms suggestive of collateral filling of the popliteal and infrapopliteal vessels. Severely diminished resting KATHERYN 0.4 on the right side. There were no similar previous studies available for comparison. Mr. Funez does have follow-up with cardiology regarding these findings. He presented for followup with complaints of right leg pain. 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 Mr Funez reports that his vascular surgeon informed him to continue with immunotherapy while undergoing management for peripheral vascular disease. His immunotherapy been placed on hold from his first cycle on July 28, 2020 but he did resume it on October 15, 2020. And on December 29, 2020, his durvalumab dose was changed to 1500 mg fixed every 4 weeks Follow-up CT PET scan done on December 12, 2020 shows extensive right lobe atelectasis and mass seen on prior study cannot be differentiated from adjacent atelectatic lung. Low-grade, diffuse FDG activity is consistent with inflammatory uptake. Right hilar lymph node previously seen is now resolved. Right pleural effusion. Follow-up PET scan was performed on 04/17/2021 findings indicate postradiation therapy inflammatory activity in right lung atelectasis. Negative for active malignancy. Improvement in right pleural effusion and right lower lobe atelectasis. Came for follow-up, complaining of generalized weakness and fatigue as per patient 2 weeks ago he underwent a tooth extraction 1 from left mandible and other right upper premolar,, as per patient surgical tooth extraction was done which caused extensive bleeding from the right premolar extraction, patient went to [facility], where his hemoglobin dropped to 10 g, patient continued to bleed for more than 12 hours and he was also evaluated by Dr. Connell, ENT. Now bleeding stopped but now with generalized weakness and fatigue. Denies any chest pain or palpitation but lower back pain, radiating to lower extremity, for the last 2 weeks, as per patient it was off and on but now more often, Tylenol arthritis helps some. No urine or stool incontinence. Patient said he got a new dog, thank, playing with him may have caused his back pain. Also complaining of left mid back pain, initially thought it could be from urine tract infection but patient has taken oral antibiotic prior to tooth extraction. And denies any dysuria or hematuria. Denies any shortness of breath at rest but dyspnea exertion denies any melena or hematochezia, denies any jaundice. Patient is taking Synthroid 150 mg p.o. daily since 04/20/2021, patient has seen endocrinology, as per patient, management of diabetes was discussed, not remember any discussion regarding thyroid supplements. Tolerating durvalumab well otherwise, no skin rash, no jaundice, no diarrhea Medications: Acarbose 1 Tablet (of 100 mg) Oral t.i.d., Aspirin 1 Tablet (of 81 mg) Tablet, enteric coated Oral daily, Atorvastatin Calcium 1 Tablet (of 80 mg) Oral daily, Benzonatate (100 mg) Capsule Oral t.i.d., Cetirizine HCl 1 Tablet (of 10 mg) Oral daily, Cholecalciferol 1 Capsule (of 25 mcg ) Oral daily, Cilostazol 1 Tablet (of 50 mg) Oral b.i.d., Clopidogrel Bisulfate 1 Tablet (of 75 mg) Oral daily, Flonase Suspension Nasal, Furosemide 1 Tablet (of 20 mg) Oral daily, Insulin Aspart Subcutaneous, Insulin Glargine 10 Units (of 100 Units/mL) Subcutaneous daily, Isosorbide Mononitrate ER 1 Tablet (of 30 mg) Tablet SR 24 HR Oral daily, Levothyroxine Sodium 1.5 Tablet (of 100 mcg) Oral daily, Lisinopril 1 Tablet (of 40 mg) Oral daily, metFORMIN HCl 1 Tablet (of 850 mg) Oral t.i.d., Mucinex Allergy 1 Tablet (of 180 mg) Oral daily, Multivitamin 1 Tablet Oral daily, Naproxen 1 Tablet (of 250 mg) Oral q 8 hours PRN, Stiolto Respimat Aerosol, solution Inhalation Allergies: No Known Allergies. Review of Systems: Review of Systems is not available for this patient. Vital Signs: Performed on May 18, 2021 10:22 Height - 70.00 in Weight - 196.4 lbs (HIGH) BSA - 2.07 sq.m BMI - 28.18 Pulse - 96 /min Respiration - 18 /min BP - 121/62 mm(hg) O2 Sat - 97 % Pain - 0 Performance Status: 0 - Fully active, able to carry on all predisease activities without restrictions. (ECOG) Physical Examination: ENMT - No mouth sores, no thrush no jaundice, Respiratory - Lungs are clear to auscultation, Cardiovascular - Regular rate and rhythm of heart, Abdomen - Soft, bowel sounds present, Extremities - No visible edema. Lab/Imaging: Test performed on Apr 28, 2021 13:52 TSH 10.37 uU/mL Test performed on Mar 23, 2021 08:41 Sodium 134 mmol/L Potassium 4.2 mmol/L Chloride 98 mmol/L CO2 26 mmol/L Anion Gap 14.2 BUN 7 mg/dL Creatinine 0.4 mg/dL Cr Clearance (Est) 191.92 mL/min Glucose 138 mg/dL Osmolality - Calculated 278 mOsm/kg Calcium 9.2 mg/dL Protein, Total 6.6 g/dL Albumin 3.9 g/dL Globulin 2.7 g/dL Bilirubin, Total 0.3 mg/dL ALT (SGPT) 14 U/L AST (SGOT) 14 U/L Alkaline Phosphatase 67 IU/L WBC 7.2 10 3/uL RBC 3.73 10 6/uL HGB 11.6 g/dL HCT 35.4 % MCV 94.9 fl MCH 31.1 pg MCHC 32.8 g/dL RDW 15.6 % Platelet Count 260 10 3/cmm MPV 8.2 fL Neutrophils 4.22 10 3/uL Lymphocytes 1.2 10 3/uL Monocytes 0.6 10 3/uL Eosinophils 1.1 10 3/uL Basophils 0.1 10 3/uL Neutrophil % 58.9 % Lymphocyte % 16.1 % Monocyte % 8.8 % Eosinophil % 14.8 % Basophils % 1.1 % NRBC % 0 % 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 CT scan of abdomen pelvis done in November 2019 showed no evidence of metastatic disease ENT, EGD evaluation showed no evidence of head and neck cancer, as per Patient, he had colonoscopy done last year it was unremarkable tumor marker CA 19???9 18.37 CEA [address] PET scan done on March 10, 2020 showed right upper lobe mass measuring 2.6 x 3.2 cm with SUV of 10.30, extensive mediastinal lymphadenopathy along with right hilar lymph node. No distant metastatic disease a single rib, right 10th rib laterally demonstrated on heparin fracture with callus formation .MRI scan of the head done on April 06, 2020 showed no evidence of metastatic disease, Clinical stage IIIa Started on combined chemoradiation with weekly carboplatin/Taxol on May 11, 2020 Completed on June 23, 2020 Started on maintenance therapy with durvalumab on July 28, 2020 follow-up CT PET scan done on December 12, 2020 showed right upper lobe atelectasis and consolidation with inflammatory FDG uptake, right hilar lymph node seen on prior study is resolved. The right pleural effusion has developed. Follow-up PET scan performed on 04/17/2021 indicates post radiation therapy inflammatory activity and right lung atelectasis. Negative for active malignancy. Improvement in right pleural effusion and right lower lobe atelectasis. Diabetes and related complication ? diabetic neuropathyOr vascular as patient has been severe peripheral vascular disease involving bilateral feet Peripheral vascular disease,Status post bilateral femoral arterial stenting Done on April 15, 2020 CAD status post stent placement.Due to progressive coronary artery disease coronary artery stenting Done on April 15, 2020 Plan: Discussed with patient regarding his labs white blood count 7.7 hemoglobin 8.7 hematocrit 26.9 platelets 303,000 CMP within normal limit except sodium 134, TSH 5.55 compared to 10.37 on 04/28/2021 and 23.83 on 04/20/2021. His Synthroid dose was increased to 150 mcg from 100 mcg p.o. daily on 04/20/2021 Clinically, patient is doing reasonably well now with symptomatic due to significant anemia due to extensive bleeding from recent tooth extraction which required surgical extraction, today's hemoglobin is 8.7 g compared to 12 g on 04/20/2021. His recent ENT evaluation shows normal bleeding from tooth extraction site. Patient has history of iron deficiency anemia for which he received Injectafer in January 2021, Etiology of his anemia, could be due to extensive bleeding from tooth extraction, other possibility could be immunotherapy induced aplastic anemia or hemolytic anemia but less likely as his CMP shows normal bilirubin level and and drop in his hemoglobin was noted after tooth extraction related extensive bleeding. We will check his iron studies, reticulocyte count and if it shows iron deficiency, will consider parenteral iron, as in the past, his iron deficiency anemia responded well to parenteral iron. As far as lower back pain is concerned, could be musculoskeletal due to muscle pull or could be disc prolapse or arthritis in the back or recurrence of lung cancer, but alkaline phosphatase is normal, we will consider MRI scan of thoracic/lumbar spine. Patient was advised in case there is a worsening of pain he need to go emergency room for evaluation otherwise he will return to clinic after MRI scan of thoracic/lumbar area As far as hypothyroidism is concerned, patient is on Synthroid 150 mcg p.o. daily, and his follow-up TSH level shows significant improvement since dose was increased to 150 mcg from 100 mcg, now we will reduce Synthroid dose to 100 mcg p.o. 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 In the meantime we will continue with his maintenance durvalumab, he will receive his monthly dose today and then return to clinic in 1 month with CBC CMP and TSH. Signed By: Nuno Campbell M.D. <<Signature on File>>
== END 2021-05-18 08:50 | disposition home or self-care (01) ==
PROVIDERS: PCP Family Medicine; Visit Provider Internal Medicine Hematology & Oncology
DX: Z51.12 Encounter for antineoplastic immunotherapy (principal); C34.11 Malignant neoplasm of upper lobe, right bronchus or lung; D64.9 Anemia, unspecified; M54.50 Low back pain, unspecified; E03.9 Hypothyroidism, unspecified
CPT/HCPCS: 80053; 81003; 82728; 83540; 83550; 84443; 85025; 85045; 96367; 96413; 99215; J1439; J7050; J9173

== ENCOUNTER 2021-05-19 10:42 | Outpatient (CLI) | payer OTHER, SELFPAY ==
[2021-05-19 11:38] LABS: Free T4 Free Thyroxine 1.65 ng/dL (0.82-1.77)
== END 2021-05-19 10:43 | disposition home or self-care (01) ==
PROVIDERS: PCP Family Medicine; Visit Provider Internal Medicine
DX: E11.42 Type 2 diabetes mellitus with diabetic polyneuropathy (principal); E03.9 Hypothyroidism, unspecified
CPT/HCPCS: 84439

== ENCOUNTER 2021-05-24 07:54 | Outpatient (CLI) | payer OTHER, SELFPAY ==
--- NOTE | 2021-05-24 09:30 | CT_ITS ---
WS: [id number] CT THORACIC SPINE with contrast. HISTORY: C34.11 MALIGNANT NEOPLASM OF UPPER LOBE, RIGHT BRONCHUS TECHNIQUE: Contiguous 2.5 mm axial images are reviewed to thoracic spine. Images are reformatted in s agittal and coronal planes. All CT scans at [facility] use at least one of these dose optimiz ation techniques: automated exposure control; mA and/or kV adjustment per patient size (includes targ eted exams where dose is matched to clinical indication); or iterative reconstruction. DLP: 890.84 mGycm COMPARISON: PET CT 04/17/2021. Contrast: Omnipaque 300; 95 mL IV. Very mild increase in the thoracic kyphosis. Slight disc space narrowing throughout the thoracic spin e. No osteoblastic or osteolytic bone disease. Small hypertrophic endplate osteophytes. By CT there i s no evidence for cord compression or abnormal enhancement within the thecal sac. No high-grade centr al stenosis or foraminal disc protrusions. Facet joint arthritis throughout the thoracic spine. Scatt ered plaque within the thoracic aorta. Mixed density with variable opacifications and consolidations RIGHT upper lobe extends to the RIGHT h ilar structures. This is better seen on a dedicated PET CT that was previously performed. Volume loss and postradiation changes in the medial RIGHT upper lobe and hilum. There are a few small subcentime ter mediastinal and paratracheal lymph nodes. Small layering RIGHT pleural effusion has decreased in size since 12/12/2020. IMPRESSION: 1. No enhancing masses or bone destruction throughout the thoracic spine. 2. Volume loss with chronic atelectasis which is probably post radiation changes and fibrosis in the medial RIGHT upper lobe extending to the RIGHT hilum. These findings were previously described by PE T/CT imaging. 3. Small layering RIGHT pleural effusion. 4. No thoracic stenosis or disc protrusions.
--- NOTE | 2021-05-24 09:30 | CT_ITS ---
WS: [id number] CT LUMBAR SPINE, with contrast. HISTORY: C34.11 MALIGNANT NEOPLASM OF UPPER LOBE, RIGHT BRONCHUS, back pain. TECHNIQUE: Contiguous 2.5 mm axial imaging are performed. Sagittal and coronal reformats are submitte d and reviewed. All CT scans at [facility] use at least one of these dose optimization techni ques: automated exposure control; mA and/or kV adjustment per patient size (includes targeted exams w here dose is matched to clinical indication); or iterative reconstruction. IV contrast: Omnipaque 350; 95 mL IV. DLP: 2102.02 mGycm COMPARISON: PET/CT 04/17/2021 Normal lumbar alignment. Vertebral body heights and disc space heights are normal. No osteoblastic or osteolytic bone disease or destruction. No soft tissue masses are identified. Visualized paravertebr al soft tissues are normal. No adenopathy. Extensive calcification within the abdominal aorta extendi ng into the iliac arteries. Approximately 50% stenosis in the proximal LEFT common iliac artery. Visu alized bladder is moderately well distended. L1-2: No stenosis. L2-3: Normal. L3-4: Very mild annular disc bulging. No stenosis. L4-5: Mild annular disc bulging slightly greater to the LEFT with mild ligamentum flavum hypertrophy and facet arthritis. Mild narrowing of the lateral recesses, LEFT greater than RIGHT. L5-S1: Mild annular disc bulging and a central disc protrusion. Very slight contact on the S1 nerve r oots bilaterally but no high-grade stenosis. Visualized retroperitoneum is normal. CT/CT lumbar spine w con [id number] IMPRESSION: 1. No enhancing masses or metastatic disease to the lumbar spine. 2. Very slight disc contact on the traversing L5 and S1 nerve roots as above. No high-grade stenosis. Spine
[2021-05-24] MEDS: iohexol 300 mg/mL 100 mL Btl IV (13:55)
== END 2021-05-24 07:55 | disposition home or self-care (01) ==
PROVIDERS: PCP Family Medicine; Visit Provider Internal Medicine Hematology & Oncology
DX: C34.11 Malignant neoplasm of upper lobe, right bronchus or lung (principal); J90 Pleural effusion, not elsewhere classified
CPT/HCPCS: 72129; 72132; Q9967

== ENCOUNTER 2021-05-25 06:33 | Outpatient (CLI) | payer OTHER, SELFPAY ==
[2021-05-25] MEDS: ferric carboxy (IVPB) 750 MG in sodium chloride 0.9% (100 ml) 100 ML 345 MG IV (14:10)
== END 2021-05-25 06:34 | disposition home or self-care (01) ==
LOC: ONCMED 06:34
PROVIDERS: PCP Family Medicine; Visit Provider Internal Medicine Hematology & Oncology
DX: D50.9 Iron deficiency anemia, unspecified (principal); Z79.899 Other long term (current) drug therapy
CPT/HCPCS: 96365; J1439

== ENCOUNTER 2021-06-15 08:36 | Outpatient (CLI) | payer OTHER, MEDICARE, SELFPAY ==
[2021-06-15 09:23] LABS: Basophils # 0.1 10^3/uL (0.0-0.1); Basophils % 0.8 %; Eosinophils # 1.7 10^3/uL (0.0-0.8); Eosinophils % 21.5 %; Hematocrit 35.3 % (42.0-52.0); Hemoglobin 11.4 g/dL (11.7-16.6); Lymphocytes # 1.1 10^3/uL (0.8-4.8); Mean Corpuscular HGB Conc 32.3 g/dL (30.0-36.0); Mean Corpuscular Hemoglobin 31.8 pg (28.0-34.0); Mean Corpuscular Volume 98.3 fl (80-94); Mean Platelet Volume 8.6 fL (7.4-10.4); Monocytes # 0.7 10^3/uL (0.2-0.9); Monocytes % 9.2 %; Neutrophils % 54.2 %; Nucleated Red Blood Cells % 0 %; Platelet Count 251 10^3/cmm (130-400); Red Blood Count 3.59 10^6/uL (4.1-5.3); White Blood Count 7.7 10^3/uL (4.0-10.0)
[2021-06-15 10:03] LABS: Alanine Aminotransferase 14 U/L (0-41); Albumin Level 4.1 g/dL (3.5-5.2); Alkaline Phosphatase 74 IU/L (40-130); Anion Gap 14.5 (5-19); Aspartate Amino Transferase 19 U/L (0-40); Blood Urea Nitrogen 8 mg/dL (8-23); Calcium 9.5 mg/dL (8.5-10.5); Carbon Dioxide 25 mmol/L (22-29); Chloride 100 mmol/L (98-107); Globulin 2.6 g/dL (1.3-4.6); Glucose 129 mg/dL (65-115); Osmolality Calculated 280 mOsm/kg (285-295); Potassium 4.5 mmol/L (3.5-5.1); Sodium 135 mmol/L (136-145); Thyroid Stimulating Hormone 0.98 uIU/mL (0.27-4.20); Total Bilirubin 0.3 mg/dL (0.15-1.2); Total Protein 6.7 g/dL (6.6-8.7)
--- NOTE | 2021-06-15 16:06 | ONC FU_ITS ---
Dr. Campbell follow up note Patient: Marbin Funez V Unit #: [id number]: 1945 Dicatated By: Nuno Campbell M.D.Date of Visit:Jun 15, 2021 Onc Med Follow-up/Prog Note History of Present Illness: Mr. Funez is a 75-year-old gentleman with a history of COPD. He went to [facility] on November 26, 2019 with 3-day history of right flank pain. He reported his pain was radiating to with right pelvis. A CT scan of abdomen pelvis was done on November 26, 2019 which showed no urinary tract calculus or obstruction normal appendix; calcified right lower lobe pulmonary granuloma. On January 09, 2020, he had a chest x-ray done for chest pain and found to have right upper lung mass. He subsequently underwent CT scan of chest which confirmed right upper lobe lung mass measuring 2.7 x 3.1 cm. The lesion was subpleural and also showed mediastinal and hilar lymphadenopathy. He underwent transthoracic needle biopsy on February 06, 2020. He also underwent bronchoscopy and transbronchial needle aspiration of station 4R and 10 R lymph node. 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 Immunohistochemistry were negative for TTF-1, Napsin and p63 and CK 20 so based on this immunoprofile tumor was not overtly designated as a lung primary. Mr Funez has history of coronary artery disease status post stent placement and also has peripheral vascular disease. Patient denies any hemoptysis or hematemesis, denies any weight loss, denies any poor appetite,. Denies any headaches blurred vision or double vision. As per patient he has history of bladder cancer, diagnosed in 2007 or 8 at that time tumor was removed and he was given intravesical therapy. And followed by yearly exam until recently with no evidence of recurrence of disease. 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 He was evaluated by a vascular surgeon for intervention stenting or arterial bypass , As per patient bilateral femoral artery stenting was done on April 15, 2020 And on same day he underwent coronary artery stenting done, tolerated procedure very well and he was started on Plavix and aspirin. PET/CT scan from March 10, 2020 showed marked increase of metabolic activity in the anterior right upper lung lobe size about 2.6 x 3.2 cm consistent with neoplasia and there is extensive mediastinal lymph node involvement of anterior/prevascular lymph nodes, right paratracheal, precarinal with an index lesion measuring 1.4 x 2.0 cm with SUV of 6.75 and right hilar lymph node. No evidence of distant metastatic disease MRI scan of the brain done on April 06, 2020 showed no evidence of metastatic disease Tumor marker CA 19???9 was 18.37, PSA 0.673, and CEA 138.7., Patient had ENT evaluation done which shows no evidence of head or neck cancer EGD Was done on April 01, 2020, it was normal exam, As per patient he had colonoscopy done last year and it was unremarkable Mr Funez was offered treatment with concurrent chemoradiation and started with weekly carboplatin/Taxol on May 11, 2020. He has tolerated it well but has required growth factor support for neutropenia. He completed combined chemoradiation therapy on June 23, 2020. Follow-up PET/CT scan done on July 25, 2020 showed right upper lobe mass measured 2.3 x 1.8 cm, with SUV of 3.2 compared to 2.6 x 3.[address] PET scan done on March 10, 2020. The right upper lobe hilar lymph node had a SUV of 4.5. Other scattered mediastinal lymph nodes are subcentimeter in size and FDG negative no evidence of distant mets. Mr Funez started on maintenance durvalumab every 2 weeks for 12 months on July 28, 2020. He had follow-up arterial duplex of the right lower extremity on August 12, 2019 through the ER. He presented with pain from his knee to his ankle on the right leg. He has a history of stents in his groin in November 2019 per his report. The arterial Doppler did report features of high-grade stenosis in the distal superficial femoral artery on the right side. There are abnormal Doppler waveforms suggestive of collateral filling of the popliteal and infrapopliteal vessels. Severely diminished resting KATHERYN 0.4 on the right side. There were no similar previous studies available for comparison. Mr. Funez does have follow-up with cardiology regarding these findings. He presented for followup with complaints of right leg pain. Mr Funez recently underwent right leg vascular surgery and is being followed by a vascular surgeon in [place] as well as his ldr nurse here in [place]. Mr Funez reports that his vascular surgeon informed him to continue with immunotherapy while undergoing management for peripheral vascular disease. His immunotherapy been placed on hold from his first cycle on July 28, 2020 but he did resume it on October 15, 2020. And on December 29, 2020, his durvalumab dose was changed to 1500 mg fixed every 4 weeks Follow-up CT PET scan done on December 12, 2020 shows extensive right lobe atelectasis and mass seen on prior study cannot be differentiated from adjacent atelectatic lung. Low-grade, diffuse FDG activity is consistent with inflammatory uptake. Right hilar lymph node previously seen is now resolved. Right pleural effusion. Follow-up PET scan was performed on 04/17/2021 findings indicate postradiation therapy inflammatory activity in right lung atelectasis. Negative for active malignancy. Improvement in right pleural effusion and right lower lobe atelectasis. Came for follow-up, denies any specific complaint except lower back pain which is better, denies any numbness in the lower extremities denies any focal weakness denies any dysuria or hematuria, recently underwent CT scan of thoracic lumbar spine done on May 24, 2021 which shows no evidence of metastatic disease rather mild annular disc bulging and central disc protrusion, very slight contact on the S1 nerve root bilaterally but no high-grade stenosis, Denies any fever chills denies any nausea or vomiting denies any diarrhea constipation denies any shortness of breath denies any jaundice denies any skin rash Tolerating durvalumab well otherwise, no skin rash, no jaundice, no diarrhea Medications: Acarbose 1 Tablet (of 100 mg) Oral t.i.d., Aspirin 1 Tablet (of 81 mg) Tablet, enteric coated Oral daily, Atorvastatin Calcium 1 Tablet (of 80 mg) Oral daily, Benzonatate (100 mg) Capsule Oral t.i.d., Cetirizine HCl 1 Tablet (of 10 mg) Oral daily, Cholecalciferol 1 Capsule (of 25 mcg ) Oral daily, Cilostazol 1 Tablet (of 50 mg) Oral b.i.d., Clopidogrel Bisulfate 1 Tablet (of 75 mg) Oral daily, Flonase Suspension Nasal, Furosemide 1 Tablet (of 20 mg) Oral daily, Insulin Aspart Subcutaneous, Insulin Glargine 10 Units (of 100 Units/mL) Subcutaneous daily, Isosorbide Mononitrate ER 1 Tablet (of 30 mg) Tablet SR 24 HR Oral daily, Levothyroxine Sodium 1.5 Tablet (of 100 mcg) Oral daily, Lisinopril 1 Tablet (of 40 mg) Oral daily, metFORMIN HCl 1 Tablet (of 850 mg) Oral t.i.d., Mucinex Allergy 1 Tablet (of 180 mg) Oral daily, Multivitamin 1 Tablet Oral daily, Naproxen 1 Tablet (of 250 mg) Oral q 8 hours PRN, Stiolto Respimat Aerosol, solution Inhalation Allergies: No Known Allergies. Review of Systems: Review of Systems is not available for this patient. Vital Signs: Performed on Jun 15, 2021 11:12 Height - 70.00 in Weight - 195.8 lbs (LOW) BSA - 2.07 sq.m BMI - 28.09 Temperature - 98.1 F (LOW) Pulse - 83 /min Respiration - 18 /min BP - 117/65 mm(hg) O2 Sat - 96 % Pain - 0 Fatigue - 3 Performance Status: 0 - Fully active, able to carry on all predisease activities without restrictions. (ECOG) Physical Examination: ENMT - No mouth sores, no thrush, no jaundice, Respiratory - Lungs are clear to auscultation, Cardiovascular - Regular rate and rhythm of heart, Abdomen - Soft, bowel sounds Present, Extremities - No visible edema. Lab/Imaging: Test performed on Apr 28, 2021 13:52 TSH 10.37 uU/mL Test performed on Mar 23, 2021 08:41 Sodium 134 mmol/L Potassium 4.2 mmol/L Chloride 98 mmol/L CO2 26 mmol/L Anion Gap 14.2 BUN 7 mg/dL Creatinine 0.4 mg/dL Cr Clearance (Est) 191.92 mL/min Glucose 138 mg/dL Osmolality - Calculated 278 mOsm/kg Calcium 9.2 mg/dL Protein, Total 6.6 g/dL Albumin 3.9 g/dL Globulin 2.7 g/dL Bilirubin, Total 0.3 mg/dL ALT (SGPT) 14 U/L AST (SGOT) 14 U/L Alkaline Phosphatase 67 IU/L WBC 7.2 10 3/uL RBC 3.73 10 6/uL HGB 11.6 g/dL HCT 35.4 % MCV 94.9 fl MCH 31.1 pg MCHC 32.8 g/dL RDW 15.6 % Platelet Count 260 10 3/cmm MPV 8.2 fL Neutrophils 4.22 10 3/uL Lymphocytes 1.2 10 3/uL Monocytes 0.6 10 3/uL Eosinophils 1.1 10 3/uL Basophils 0.1 10 3/uL Neutrophil % 58.9 % Lymphocyte % 16.1 % Monocyte % 8.8 % Eosinophil % 14.8 % Basophils % 1.1 % NRBC % 0 % 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 CT scan of abdomen pelvis done in November 2019 showed no evidence of metastatic disease ENT, EGD evaluation showed no evidence of head and neck cancer, as per Patient, he had colonoscopy done last year it was unremarkable tumor marker CA 19???9 18.37 CEA 138[address] PET scan done on March 10, 2020 showed right upper lobe mass measuring 2.6 x 3.2 cm with SUV of 10.30, extensive mediastinal lymphadenopathy along with right hilar lymph node. No distant metastatic disease a single rib, right 10th rib laterally demonstrated on heparin fracture with callus formation .MRI scan of the head done on April 06, 2020 showed no evidence of metastatic disease, Clinical stage IIIa Started on combined chemoradiation with weekly carboplatin/Taxol on May 11, 2020 Completed on June 23, 2020 Started on maintenance therapy with durvalumab on July 28, 2020 follow-up CT PET scan done on December 12, 2020 showed right upper lobe atelectasis and consolidation with inflammatory FDG uptake, right hilar lymph node seen on prior study is resolved. The right pleural effusion has developed. Follow-up PET scan performed on 04/17/2021 indicates post radiation therapy inflammatory activity and right lung atelectasis. Negative for active malignancy. Improvement in right pleural effusion and right lower lobe atelectasis. Diabetes and related complication ? diabetic neuropathyOr vascular as patient has been severe peripheral vascular disease involving bilateral feet Peripheral vascular disease,Status post bilateral femoral arterial stenting Done on April 15, 2020 CAD status post stent placement.Due to progressive coronary artery disease coronary artery stenting Done on April 15, 2020 lower back pain probably musculoskeletal, CT scan of thoracic lumbar spine done on May 24, 2021 showed mild annular disc bulging and central disc protrusion. Very slight contact on S1 nerve root bilaterally but no high-grade stenosis Iron deficiency anemia due to excessive bleeding from dental procedure, status post Injectafer 750 mg weekly x2 in May 2021 Hypothyroidism, on levothyroxine 100 mcg p.o. daily, reduced to 50 mcg p.o. daily on June 15, 2021 Plan: Discussed with patient regarding his labs white blood count 7.7, hemoglobin 11.4 g compared to 8.7 prior to Injectafer infusion, hematocrit 35.3 platelets 251,000 CMP within normal limits except sodium 135 glucose 129 and TSH is 0.98 compared to 5.55 on May 18, 2021 Clinically, patient is doing well with no new signs symptoms just above recurrence of disease tolerating maintenance therapy with durvalumab well, will proceed with his next monthly dose today then he will return to clinic in 1 month with CBC and CMP and TSH As far as lower back pain is concerned, CT scan of thoracic/lumbar spine showed disc bulging with mild contact with the S1 nerve root bilaterally, no evidence of metastatic disease. As per patient his back pain is improving, he was offered orthopedic evaluation in case there is a worsening of pain. As far as hypothyroidism is concerned, he is on levothyroxine 100 mcg p.o. daily his follow-up TSH level shows significant drop from 5.55 on May 18, 2021, down to 0.98 today, so we will reduce his levothyroxine dose to 50 mcg p.o. daily, and follow with TSH, patient is scheduled to see endocrinology on June 28, 2021,. Return to clinic in 1 month with CBC CMP, and iron studies and TSH Signed By: Nuno Campbell M.D. <<Signature on File>>
== END 2021-06-15 08:37 | disposition home or self-care (01) ==
LOC: ONCMED 08:41
PROVIDERS: PCP Family Medicine; Visit Provider Internal Medicine Hematology & Oncology
DX: Z51.12 Encounter for antineoplastic immunotherapy (principal); C34.11 Malignant neoplasm of upper lobe, right bronchus or lung; C78.01 Secondary malignant neoplasm of right lung; J44.9 Chronic obstructive pulmonary disease, unspecified; I25.10 Atherosclerotic heart disease of native coronary artery without angina pectoris; I73.9 Peripheral vascular disease, unspecified; G62.9 Polyneuropathy, unspecified; Z79.899 Other long term (current) drug therapy
CPT/HCPCS: 36415; 80053; 84443; 85025; 96413; 99215; J7050; J9173

== ENCOUNTER 2021-06-21 11:06 | Outpatient (CLI) | payer OTHER, SELFPAY ==
[2021-06-21 12:02] LABS: Thyroid Stimulating Hormone 3.93 uIU/mL (0.27-4.20)
== END 2021-06-21 11:07 | disposition home or self-care (01) ==
PROVIDERS: PCP Family Medicine; Visit Provider Internal Medicine
DX: E03.9 Hypothyroidism, unspecified (principal)
CPT/HCPCS: 84439; 84443

== ENCOUNTER → 2021-06-29 10:29 | Outpatient (BNVA) | payer OTHER, SELFPAY | PROVIDERS: PCP Family Medicine; Visit Provider Internal Medicine | DX: E11.42 Type 2 diabetes mellitus with diabetic polyneuropathy (principal); E03.9 Hypothyroidism, unspecified; E78.5 Hyperlipidemia, unspecified; I73.9 Peripheral vascular disease, unspecified; Z79.4 Long term (current) use of insulin; Z79.84 Long term (current) use of oral hypoglycemic drugs; Z87.891 Personal history of nicotine dependence | CPT/HCPCS: 99215 ==

== ENCOUNTER 2021-07-13 08:39 | Outpatient (CLI) | payer OTHER, SELFPAY ==
[2021-07-13 09:08] LABS: Basophils # 0.1 10^3/uL (0.0-0.1); Basophils % 0.6 %; Eosinophils # 1.4 10^3/uL (0.0-0.8); Eosinophils % 12.1 %; Hematocrit 38.1 % (42.0-52.0); Hemoglobin 12.7 g/dL (11.7-16.6); Lymphocytes # 1.2 10^3/uL (0.8-4.8); Mean Corpuscular HGB Conc 33.3 g/dL (30.0-36.0); Mean Platelet Volume 8.6 fL (7.4-10.4); Monocytes % 8.4 %; Neutrophils # 8.13 10^3/uL (1.8-7.7); Neutrophils % 68.6 %; Nucleated Red Blood Cells % 0 %; Platelet Count 264 10^3/cmm (130-400); Red Blood Count 3.97 10^6/uL (4.1-5.3); Red Cell Distribution Width 14.7 % (12.1-15.1); White Blood Count 11.9 10^3/uL (4.0-10.0)
[2021-07-13 09:36] LABS: Alanine Aminotransferase 16 U/L (0-41); Albumin Level 4.1 g/dL (3.5-5.2); Alkaline Phosphatase 80 IU/L (40-130); Anion Gap 16.6 (5-19); Aspartate Amino Transferase 16 U/L (0-40); Blood Urea Nitrogen 9 mg/dL (8-23); Calcium 9.3 mg/dL (8.5-10.5); Carbon Dioxide 25 mmol/L (22-29); Chloride 92 mmol/L (98-107); Ferritin 280 ng/mL (30-400); Globulin 3.2 g/dL (1.3-4.6); Glucose 254 mg/dL (65-115); Iron 32 ug/dL (59-158); Osmolality Calculated 275 mOsm/kg (285-295); Percent Saturation 13.9 % (20-50); Potassium 4.6 mmol/L (3.5-5.1); Sodium 129 mmol/L (136-145); Thyroid Stimulating Hormone 31.58 uIU/mL (0.27-4.20); Total Bilirubin 0.3 mg/dL (0.15-1.2); Total Iron Binding Capacity 230 mcg/dl; Total Protein 7.3 g/dL (6.6-8.7); Unsaturated Iron Binding 198 ug/dL (112-347)
--- NOTE | 2021-07-14 17:02 | ONC FU_ITS ---
Dr. Campbell follow up note Patient: Marbin Funez V Unit #: [id number]: [id number] Dicatated By: Nuno Campbell M.D.Date of Visit:Jul 13, 2021 Onc Med Follow-up/Prog Note History of Present Illness: Mr. Funez is a 75-year-old gentleman with a history of COPD. He went [place] [facility] on November 26, 2019 with 3-day history of right flank pain. He reported his pain was radiating to with right pelvis. A CT scan of abdomen pelvis was done on November 26, 2019 which showed no urinary tract calculus or obstruction normal appendix; calcified right lower lobe pulmonary granuloma. On January 09, 2020, he had a chest x-ray done for chest pain and found to have right upper lung mass. He subsequently underwent CT scan of chest which confirmed right upper lobe lung mass measuring 2.7 x 3.1 cm. The lesion was subpleural and also showed mediastinal and hilar lymphadenopathy. He underwent transthoracic needle biopsy on February 06, 2020. He also underwent bronchoscopy and transbronchial needle aspiration of station 4R and 10 R lymph node. 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 Immunohistochemistry were negative for TTF-1, Napsin and p63 and CK 20 so based on this immunoprofile tumor was not overtly designated as a lung primary. Mr Funez has history of coronary artery disease status post stent placement and also has peripheral vascular disease. Patient denies any hemoptysis or hematemesis, denies any weight loss, denies any poor appetite,. Denies any headaches blurred vision or double vision. As per patient he has history of bladder cancer, diagnosed in 2007 or 8 at that time tumor was removed and he was given intravesical therapy. And followed by yearly exam until recently with no evidence of recurrence of disease. 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 He was evaluated by a vascular surgeon for intervention stenting or arterial bypass , As per patient bilateral femoral artery stenting was done on April 15, 2020 And on same day he underwent coronary artery stenting done, tolerated procedure very well and he was started on Plavix and aspirin. PET/CT scan from March 10, 2020 showed marked increase of metabolic activity in the anterior right upper lung lobe size about 2.6 x 3.2 cm consistent with neoplasia and there is extensive mediastinal lymph node involvement of anterior/prevascular lymph nodes, right paratracheal, precarinal with an index lesion measuring 1.4 x 2.0 cm with SUV of 6.75 and right hilar lymph node. No evidence of distant metastatic disease MRI scan of the brain done on April 06, 2020 showed no evidence of metastatic disease Tumor marker CA 19???9 was 18.37, PSA 0.673, and CEA 138.7., Patient had ENT evaluation done which shows no evidence of head or neck cancer EGD Was done on April 01, 2020, it was normal exam, As per patient he had colonoscopy done last year and it was unremarkable Mr Funez was offered treatment with concurrent chemoradiation and started with weekly carboplatin/Taxol on May 11, 2020. He has tolerated it well but has required growth factor support for neutropenia. He completed combined chemoradiation therapy on June 23, 2020. Follow-up PET/CT scan done on July 25, 2020 showed right upper lobe mass measured 2.3 x 1.8 cm, with SUV of 3.2 compared to 2.6 x 3.[address] PET scan done on March 10, 2020. The right upper lobe hilar lymph node had a SUV of 4.5. Other scattered mediastinal lymph nodes are subcentimeter in size and FDG negative no evidence of distant mets. Mr Funez started on maintenance durvalumab every 2 weeks for 12 months on July 28, 2020. He had follow-up arterial duplex of the right lower extremity on August 12, 2019 through the ER. He presented with pain from his knee to his ankle on the right leg. He has a history of stents in his groin in November 2019 per his report. The arterial Doppler did report features of high-grade stenosis in the distal superficial femoral artery on the right side. There are abnormal Doppler waveforms suggestive of collateral filling of the popliteal and infrapopliteal vessels. Severely diminished resting KATHERYN 0.4 on the right side. There were no similar previous studies available for comparison. Mr. Funez does have follow-up with cardiology regarding these findings. He presented for followup with complaints of right leg pain. 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 Mr Funez reports that his vascular surgeon informed him to continue with immunotherapy while undergoing management for peripheral vascular disease. His immunotherapy been placed on hold from his first cycle on July 28, 2020 but he did resume it on October 15, 2020. And on December 29, 2020, his durvalumab dose was changed to 1500 mg fixed every 4 weeks Follow-up CT PET scan done on December 12, 2020 shows extensive right lobe atelectasis and mass seen on prior study cannot be differentiated from adjacent atelectatic lung. Low-grade, diffuse FDG activity is consistent with inflammatory uptake. Right hilar lymph node previously seen is now resolved. Right pleural effusion. Follow-up PET scan was performed on 04/17/2021 findings indicate postradiation therapy inflammatory activity in right lung atelectasis. Negative for active malignancy. Improvement in right pleural effusion and right lower lobe atelectasis. Came for follow-up, complaining of wheezing, productive cough but no fever just feverish feeling. No hemoptysis hematemesis, constipation but no nausea or vomiting, no skin rash, no diarrhea, no headaches, tolerating immunotherapy well. Patient has seen endocrinology Dr. Pathak and now she is monitoring his thyroid supplement, as per patient is taking levothyroxine 50 mcg p.o. daily Medications: Acarbose 1 Tablet (of 100 mg) Oral t.i.d., Aspirin 1 Tablet (of 81 mg) Tablet, enteric coated Oral daily, Atorvastatin Calcium 1 Tablet (of 80 mg) Oral daily, Benzonatate (100 mg) Capsule Oral t.i.d., Cetirizine HCl 1 Tablet (of 10 mg) Oral daily, Cholecalciferol 1 Capsule (of 25 mcg ) Oral daily, Cilostazol 1 Tablet (of 50 mg) Oral b.i.d., Clopidogrel Bisulfate 1 Tablet (of 75 mg) Oral daily, Flonase Suspension Nasal, Furosemide 1 Tablet (of 20 mg) Oral daily, Insulin Aspart Subcutaneous, Insulin Glargine 10 Units (of 100 Units/mL) Subcutaneous daily, Isosorbide Mononitrate ER 1 Tablet (of 30 mg) Tablet SR 24 HR Oral daily, Levothyroxine Sodium 1.5 Tablet (of 100 mcg) Oral daily, Lisinopril 1 Tablet (of 40 mg) Oral daily, metFORMIN HCl 1 Tablet (of 850 mg) Oral t.i.d., Mucinex Allergy 1 Tablet (of 180 mg) Oral daily, Multivitamin 1 Tablet Oral daily, Naproxen 1 Tablet (of 250 mg) Oral q 8 hours PRN, Stiolto Respimat Aerosol, solution Inhalation Allergies: No Known Allergies. Review of Systems: Review of Systems is not available for this patient. Vital Signs: Performed on Jul 13, 2021 11:12 Height - 70.00 in Weight - 199.8 lbs (HIGH) BSA - 2.09 sq.m BMI - 28.67 Temperature - 98.2 F (LOW) Pulse - 95 /min Respiration - 20 /min BP - 127/62 mm(hg) O2 Sat - 95 % (LOW) Pain - 6 Fatigue - 1 Performance Status: 1 - No physically strenuous activity, but ambulatory and able to carry out light or sedentary work (e.g. office work, light house work). (ECOG) Physical Examination: ENMT - No mouth sores, no thrush, no jaundice, Respiratory - Bilateral wheezing, Cardiovascular - Regular rate and rhythm of heart, Abdomen - Soft, bowel sounds present, Extremities - No visible edema. Lab/Imaging: Test performed on Apr 28, 2021 13:52 TSH 10.37 uU/mL Test performed on Mar 23, 2021 08:41 Sodium 134 mmol/L Potassium 4.2 mmol/L Chloride 98 mmol/L CO2 26 mmol/L Anion Gap 14.2 BUN 7 mg/dL Creatinine 0.4 mg/dL Cr Clearance (Est) 191.92 mL/min Glucose 138 mg/dL Osmolality - Calculated 278 mOsm/kg Calcium 9.2 mg/dL Protein, Total 6.6 g/dL Albumin 3.9 g/dL Globulin 2.7 g/dL Bilirubin, Total 0.3 mg/dL ALT (SGPT) 14 U/L AST (SGOT) 14 U/L Alkaline Phosphatase 67 IU/L WBC 7.2 10 3/uL RBC 3.73 10 6/uL HGB 11.6 g/dL HCT 35.4 % MCV 94.9 fl MCH 31.1 pg MCHC 32.8 g/dL RDW 15.6 % Platelet Count 260 10 3/cmm MPV 8.2 fL Neutrophils 4.22 10 3/uL Lymphocytes 1.2 10 3/uL Monocytes 0.6 10 3/uL Eosinophils 1.1 10 3/uL Basophils 0.1 10 3/uL Neutrophil % 58.9 % Lymphocyte % 16.1 % Monocyte % 8.8 % Eosinophil % 14.8 % Basophils % 1.1 % NRBC % 0 % 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 CT scan of abdomen pelvis done in November 2019 showed no evidence of metastatic disease ENT, EGD evaluation showed no evidence of head and neck cancer, as per Patient, he had colonoscopy done last year it was unremarkable tumor marker CA 19???9 18.37 CEA 138[address] PET scan done on March 10, 2020 showed right upper lobe mass measuring 2.6 x 3.2 cm with SUV of 10.30, extensive mediastinal lymphadenopathy along with right hilar lymph node. No distant metastatic disease a single rib, right 10th rib laterally demonstrated on heparin fracture with callus formation .MRI scan of the head done on April 06, 2020 showed no evidence of metastatic disease, Clinical stage IIIa Started on combined chemoradiation with weekly carboplatin/Taxol on May 11, 2020 Completed on June 23, 2020 Started on maintenance therapy with durvalumab on July 28, 2020 follow-up CT PET scan done on December 12, 2020 showed right upper lobe atelectasis and consolidation with inflammatory FDG uptake, right hilar lymph node seen on prior study is resolved. The right pleural effusion has developed. Follow-up PET scan performed on 04/17/2021 indicates post radiation therapy inflammatory activity and right lung atelectasis. Negative for active malignancy. Improvement in right pleural effusion and right lower lobe atelectasis. Diabetes and related complication ? diabetic neuropathyOr vascular as patient has been severe peripheral vascular disease involving bilateral feet Peripheral vascular disease,Status post bilateral femoral arterial stenting Done on April 15, 2020 CAD status post stent placement.Due to progressive coronary artery disease coronary artery stenting Done on April 15, 2020 lower back pain probably musculoskeletal, CT scan of thoracic lumbar spine done on May 24, 2021 showed mild annular disc bulging and central disc protrusion. Very slight contact on S1 nerve root bilaterally but no high-grade stenosis Iron deficiency anemia due to excessive bleeding from dental procedure, status post Injectafer 750 mg weekly x2 in May 2021 Hypothyroidism, on levothyroxine 100 mcg p.o. daily, reduced to 50 mcg p.o. daily on June 15, 2021 Plan: Discussed with patient regarding his labs white blood count 11.9 hemoglobin 12.7 hematocrit 38.1 platelets 264,000 CMP within normal limit except sodium 129, glucose 254 and iron studies shows iron 32 ferritin 280 iron saturation 13.9, TSH 31.58 compared to 0.98 Clinically, patient doing well now in mild to moderate distress due to productive cough and wheezing, probably due to bronchitis, will consider Z-Coleman and Medrol Dosepak, patient was advised to monitor blood sugar and will consider sliding scale. We will hold his scheduled dose of immunotherapy today and have him come back in a week, if his bronchitis related symptoms resolved, consider next dose of immunotherapy As far as hypothyroidism is concerned, now being managed by Dr. Pathak, endocrinology, case was discussed with her and she will monitor his thyroid function test and adjust his thyroid supplement dose. Signed By: Nuno Campbell M.D. <<Signature on File>>
== END 2021-07-13 08:40 | disposition home or self-care (01) ==
LOC: ONCMED 08:40
PROVIDERS: PCP Family Medicine; Visit Provider Internal Medicine Hematology & Oncology
DX: C34.11 Malignant neoplasm of upper lobe, right bronchus or lung (principal); I25.10 Atherosclerotic heart disease of native coronary artery without angina pectoris; E03.9 Hypothyroidism, unspecified; E11.42 Type 2 diabetes mellitus with diabetic polyneuropathy; Z79.899 Other long term (current) drug therapy; Z85.51 Personal history of malignant neoplasm of bladder
CPT/HCPCS: 36591; 80053; 82728; 83540; 83550; 84443; 85025; 99214

== ENCOUNTER → 2021-07-14 09:23 | Outpatient (BNVA) | payer OTHER, SELFPAY | PROVIDERS: PCP Family Medicine; Visit Provider Nurse Practitioner Family | DX: Z20.822 Contact with and (suspected) exposure to COVID-19 (principal) | CPT/HCPCS: 87635 ==

== ENCOUNTER → 2021-07-19 14:54 | Outpatient (BNVA) | payer OTHER, SELFPAY | PROVIDERS: PCP Family Medicine; Visit Provider Internal Medicine | DX: R06.02 Shortness of breath (principal); Z09 Encounter for follow-up examination after completed treatment for conditions other than malignant neoplasm; I77.0 Arteriovenous fistula, acquired; R60.0 Localized edema; I77.9 Disorder of arteries and arterioles, unspecified; E11.42 Type 2 diabetes mellitus with diabetic polyneuropathy; C34.90 Malignant neoplasm of unspecified part of unspecified bronchus or lung; R07.9 Chest pain, unspecified; Z87.891 Personal history of nicotine dependence | CPT/HCPCS: 99214 ==

== ENCOUNTER 2021-07-21 09:24 | Outpatient (CLI) | payer OTHER, SELFPAY | END 2021-07-21 09:25 | disposition home or self-care (01) | PROVIDERS: PCP Family Medicine; Visit Provider Internal Medicine Hematology & Oncology | DX: Z51.12 Encounter for antineoplastic immunotherapy (principal); C34.11 Malignant neoplasm of upper lobe, right bronchus or lung | CPT/HCPCS: 96413; J7050; J9173 ==

== ENCOUNTER → 2021-08-06 09:32 | Outpatient (BNVA) | payer OTHER, SELFPAY | PROVIDERS: PCP Family Medicine; Visit Provider Internal Medicine | DX: E11.42 Type 2 diabetes mellitus with diabetic polyneuropathy (principal); E03.9 Hypothyroidism, unspecified; I73.9 Peripheral vascular disease, unspecified; E78.5 Hyperlipidemia, unspecified; Z79.4 Long term (current) use of insulin; Z87.891 Personal history of nicotine dependence | CPT/HCPCS: 99214 ==

== ENCOUNTER 2021-08-18 07:57 | Outpatient (CLI) | payer OTHER, SELFPAY ==
[2021-08-18 08:44] LABS: Basophils # 0.1 10^3/uL (0.0-0.1); Basophils % 1.2 %; Eosinophils # 1.6 10^3/uL (0.0-0.8); Eosinophils % 21.5 %; Hematocrit 37.9 % (42.0-52.0); Hemoglobin 12.5 g/dL (11.7-16.6); Lymphocytes # 1.3 10^3/uL (0.8-4.8); Lymphocytes % 18.4 %; Mean Corpuscular Hemoglobin 31.1 pg (28.0-34.0); Mean Corpuscular Volume 94.3 fl (80-94); Mean Platelet Volume 9.1 fL (7.4-10.4); Monocytes # 0.7 10^3/uL (0.2-0.9); Monocytes % 9.4 %; Neutrophils # 3.55 10^3/uL (1.8-7.7); Neutrophils % 49.1 %; Nucleated Red Blood Cells % 0 %; Platelet Count 251 10^3/cmm (130-400); Red Blood Count 4.02 10^6/uL (4.1-5.3); Red Cell Distribution Width 14.9 % (12.1-15.1); White Blood Count 7.2 10^3/uL (4.0-10.0)
--- NOTE | 2021-08-23 21:06 | ONC FU_ITS ---
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 Funez is a 75-year-old gentleman with a history of COPD. He went to [facility] on November 26, 2019 with 3-day history of right flank pain. He reported his pain was radiating to with right pelvis. A CT scan of abdomen pelvis was done on November 26, 2019 which showed no urinary tract calculus or obstruction normal appendix; calcified right lower lobe pulmonary granuloma. On January 09, 2020, he had a chest x-ray done for chest pain and found to have right upper lung mass. He subsequently underwent CT scan of chest which confirmed right upper lobe lung mass measuring 2.7 x 3.1 cm. The lesion was subpleural and also showed mediastinal and hilar lymphadenopathy. He underwent transthoracic needle biopsy on February 06, 2020. He also underwent bronchoscopy and transbronchial needle aspiration of station 4R and 10 R lymph node. 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 Immunohistochemistry were negative for TTF-1, Napsin and p63 and CK 20 so based on this immunoprofile tumor was not overtly designated as a lung primary. Mr Funez has history of coronary artery disease status post stent placement and also has peripheral vascular disease. Patient denies any hemoptysis or hematemesis, denies any weight loss, denies any poor appetite,. Denies any headaches blurred vision or double vision. As per patient he has history of bladder cancer, diagnosed in 2006 or 8 at that time tumor was removed and he was given intravesical therapy. And followed by yearly exam until recently with no evidence of recurrence of disease. 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 He was evaluated by a vascular surgeon for intervention stenting or arterial bypass , As per patient bilateral femoral artery stenting was done on April 15, 2020 And on same day he underwent coronary artery stenting done, tolerated procedure very well and he was started on Plavix and aspirin. PET/CT scan from March 10, 2020 showed marked increase of metabolic activity in the anterior right upper lung lobe size about 2.6 x 3.2 cm consistent with neoplasia and there is extensive mediastinal lymph node involvement of anterior/prevascular lymph nodes, right paratracheal, precarinal with an index lesion measuring 1.4 x 2.0 cm with SUV of 6.75 and right hilar lymph node. No evidence of distant metastatic disease MRI scan of the brain done on April 06, 2020 showed no evidence of metastatic disease Tumor marker CA 19???9 was 18.37, PSA 0.673, and CEA 138.7., Patient had ENT evaluation done which shows no evidence of head or neck cancer EGD Was done on April 01, 2020, it was normal exam, As per patient he had colonoscopy done last year and it was unremarkable Mr Funez was offered treatment with concurrent chemoradiation and started with weekly carboplatin/Taxol on May 11, 2020. He has tolerated it well but has required growth factor support for neutropenia. He completed combined chemoradiation therapy on June 23, 2020. Follow-up PET/CT scan done on July 25, 2020 showed right upper lobe mass measured 2.3 x 1.8 cm, with SUV of 3.2 compared to 2.6 x 3.[address] PET scan done on March 10, 2020. The right upper lobe hilar lymph node had a SUV of 4.5. Other scattered mediastinal lymph nodes are subcentimeter in size and FDG negative no evidence of distant mets. Mr Funez started on maintenance durvalumab every 2 weeks for 12 months on July 28, 2020. He had follow-up arterial duplex of the right lower extremity on August 12, 2019 through the ER. He presented with pain from his knee to his ankle on the right leg. He has a history of stents in his groin in November 2019 per his report. The arterial Doppler did report features of high-grade stenosis in the distal superficial femoral artery on the right side. There are abnormal Doppler waveforms suggestive of collateral filling of the popliteal and infrapopliteal vessels. Severely diminished resting KATHERYN 0.4 on the right side. There were no similar previous studies available for comparison. Mr. Funez does have follow-up with cardiology regarding these findings. He presented for followup with complaints of right leg pain. 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 Mr Funez reports that his vascular surgeon informed him to continue with immunotherapy while undergoing management for peripheral vascular disease. His immunotherapy been placed on hold from his first cycle on July 28, 2020 but he did resume it on October 15, 2020. And on December 29, 2020, his durvalumab dose was changed to 1500 mg fixed every 4 weeks Follow-up CT PET scan done on December 12, 2020 shows extensive right lobe atelectasis and mass seen on prior study cannot be differentiated from adjacent atelectatic lung. Low-grade, diffuse FDG activity is consistent with inflammatory uptake. Right hilar lymph node previously seen is now resolved. Right pleural effusion. Follow-up PET scan was performed on 04/17/2021 findings indicate postradiation therapy inflammatory activity in right lung atelectasis. Negative for active malignancy. Improvement in right pleural effusion and right lower lobe atelectasis. Patient presents today for follow-up. He is having some mild fatigue but otherwise feeling fine. His appetite has been good. He denies fever, chills, night sweats. No sinus drainage or sore throat. He has shortness of breath secondary to COPD but it is no worse than usual. He denies chest pain. No GI or symptoms. No joint or bone pain. No headaches or dizziness. Review Of Symptoms: See above. Past Medical History: Peripheral neuropathy Peripheral vascular disease Type II diabetes Covid in 2020 History of bladder cancer in 2006 Past Surgical History: EGD PORTHACATHER PLACEMENT DR. PARK Stent placment Wil and wil covid vaccine in 2020 Colonoscopy in 2019 Allergies: No Known Allergies. Medications: Aspirin 1 Tablet (of 81 mg) Tablet, enteric coated Oral daily Atorvastatin Calcium 1 Tablet (of 80 mg) Oral daily Cholecalciferol 1 Capsule (of 25 mcg ) Oral daily Cilostazol 1 Tablet (of 50 mg) Oral b.i.d. hydroCHLOROthiazide 1 Tablet (of 25 mg) Oral daily Insulin Aspart Subcutaneous Insulin Glargine 10 Units (of 100 Units/mL) Subcutaneous daily Levothyroxine Sodium 1.5 Tablet (of 100 mcg) Oral daily Lisinopril 1 Tablet (of 40 mg) Oral daily metFORMIN HCl 1 Tablet (of 850 mg) Oral t.i.d. Multivitamin 1 Tablet Oral daily Naproxen 1 Tablet (of 250 mg) Oral q 8 hours PRN tiZANidine HCl Capsule Oral Family History: Mr. Funez's mother is alive. Mr. Funez's father at age 69: lung cancer. Mr. Funez has 1 brother who is : stroke. He has 1 sister who is : stroke. Social History: Mr. Funez is and he is an unknown. Mr. Funez quit smoking 15 years ago but had smoked 2.5 packs/day for 50 years. He has no history of drinking. Physical Examination: Performed on Aug 18, 2021 10:03: Height - 70.00 in, Weight - 200.8 lbs (HIGH), BSA - 2.09 sq.m, BMI - 28.81, Temperature - 97.6 F (LOW), Pulse - 75 /min, Respiration - 16 /min, BP - 135/64 mm(hg), O2 Sat - 95 % (LOW), Pain - 0, and Fatigue - 4. Performance Status: 1 - No physically strenuous activity, but ambulatory and able to carry out light or sedentary work (e.g. office work, light house work). (ECOG) Constitutional Alert, cooperative, oriented. Mood and affect appropriate. Appears close to chronological age. Well nourished. Well developed. Head Normocephalic; no scars. Respiratory Decreased breath sounds bilaterally Cardiovascular Regular rate and rhythm of heart without murmurs, gallops or rubs. Abdomen Non-tender, non-distended, no masses, ascites or hepatosplenomegaly. Good bowel sounds. No guarding or rebound tenderness. Musculoskeletal No tenderness or swelling, normal range of motion without obvious weakness. Psychiatric Alert and oriented times three. Coherent speech. Verbalizes understanding of our discussions today. Laboratory: Test performed on Aug 18, 2021 08:18 WBC 7.2 10 3/uL RBC 4.02 10 6/uL HGB 12.5 g/dL HCT 37.9 % MCV 94.3 fl MCH 31.1 pg MCHC 33.0 g/dL RDW 14.9 % Platelet Count 251 10 3/cmm MPV 9.1 fL Neutrophils 3.55 10 3/uL Lymphocytes 1.3 10 3/uL Monocytes 0.7 10 3/uL Eosinophils 1.6 10 3/uL Basophils 0.1 10 3/uL Neutrophil % 49.1 % Lymphocyte % 18.4 % Monocyte % 9.4 % Eosinophil % 21.5 % Basophils % 1.2 % NRBC % 0 % Test performed on Apr 28, 2021 13:52 TSH 10.37 uU/mL Test performed on Mar 23, 2021 08:41 Sodium 134 mmol/L Potassium 4.2 mmol/L Chloride 98 mmol/L CO2 26 mmol/L Anion Gap 14.2 BUN 7 mg/dL Creatinine 0.4 mg/dL Cr Clearance (Est) 191.92 mL/min Glucose 138 mg/dL Osmolality - Calculated 278 mOsm/kg Calcium 9.2 mg/dL Protein, Total 6.6 g/dL Albumin 3.9 g/dL Globulin 2.7 g/dL Bilirubin, Total 0.3 mg/dL ALT (SGPT) 14 U/L AST (SGOT) 14 U/L Alkaline Phosphatase 67 IU/L 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 CT scan of abdomen pelvis done in November 2019 showed no evidence of metastatic disease ENT, EGD evaluation showed no evidence of head and neck cancer, as per Patient, he had colonoscopy done last year it was unremarkable tumor marker CA 19???9 18.37 CEA [address] PET scan done on March 10, 2020 showed right upper lobe mass measuring 2.6 x 3.2 cm with SUV of 10.30, extensive mediastinal lymphadenopathy along with right hilar lymph node. No distant metastatic disease a single rib, right 10th rib laterally demonstrated on heparin fracture with callus formation .MRI scan of the head done on April 06, 2020 showed no evidence of metastatic disease, Clinical stage IIIa Started on combined chemoradiation with weekly carboplatin/Taxol on May 11, 2020 Completed on June 23, 2020 Started on maintenance therapy with durvalumab on July 28, 2020 follow-up CT PET scan done on December 12, 2020 showed right upper lobe atelectasis and consolidation with inflammatory FDG uptake, right hilar lymph node seen on prior study is resolved. The right pleural effusion has developed. Follow-up PET scan performed on 04/17/2021 indicates post radiation therapy inflammatory activity and right lung atelectasis. Negative for active malignancy. Improvement in right pleural effusion and right lower lobe atelectasis. Diabetes and related complication ? diabetic neuropathyOr vascular as patient has been severe peripheral vascular disease involving bilateral feet Peripheral vascular disease,Status post bilateral femoral arterial stenting Done on April 15, 2020 CAD status post stent placement.Due to progressive coronary artery disease coronary artery stenting Done on April 15, 2020 lower back pain probably musculoskeletal, CT scan of thoracic lumbar spine done on May 24, 2021 showed mild annular disc bulging and central disc protrusion. Very slight contact on S1 nerve root bilaterally but no high-grade stenosis Iron deficiency anemia due to excessive bleeding from dental procedure, status post Injectafer 750 mg weekly x2 in May 2021 Hypothyroidism, on levothyroxine 100 mcg p.o. daily, reduced to 50 mcg p.o. daily on June 15, 2021 Plan: Patient presents today for follow-up. He is feeling well today. We will continue with cycle 11 of Imfinzi. He will return to clinic in 4 weeks with CBC and CMP. As far as hypothyroidism is concerned, now being managed by Dr. Pathak, endocrinology, case was discussed with her and she will monitor his thyroid function test and adjust his thyroid supplement dose. Signed By: Yola Marshall NKirt. <<Signature on File>>
== END 2021-08-18 07:58 | disposition home or self-care (01) ==
PROVIDERS: PCP Family Medicine; Visit Provider Nurse Practitioner Family
DX: Z51.12 Encounter for antineoplastic immunotherapy (principal); C34.11 Malignant neoplasm of upper lobe, right bronchus or lung; R97.8 Other abnormal tumor markers; J98.11 Atelectasis; J90 Pleural effusion, not elsewhere classified; E11.42 Type 2 diabetes mellitus with diabetic polyneuropathy; E11.59 Type 2 diabetes mellitus with other circulatory complications; I73.9 Peripheral vascular disease, unspecified; I25.10 Atherosclerotic heart disease of native coronary artery without angina pectoris; Z95.5 Presence of coronary angioplasty implant and graft; M54.50 Low back pain, unspecified; D50.9 Iron deficiency anemia, unspecified; E03.9 Hypothyroidism, unspecified; Z79.899 Other long term (current) drug therapy
CPT/HCPCS: 85025; 96413; 99215; J7050; J9173

== ENCOUNTER → 2021-09-13 12:57 | Outpatient (BNVA) | payer OTHER, SELFPAY | PROVIDERS: PCP Family Medicine; Visit Provider Internal Medicine Critical Care Medicine | DX: C34.90 Malignant neoplasm of unspecified part of unspecified bronchus or lung (principal); R04.2 Hemoptysis; J43.9 Emphysema, unspecified; Z87.891 Personal history of nicotine dependence; E11.42 Type 2 diabetes mellitus with diabetic polyneuropathy; Z86.16 Personal history of COVID-19; I25.10 Atherosclerotic heart disease of native coronary artery without angina pectoris | CPT/HCPCS: 99214 ==

== ENCOUNTER 2021-09-15 10:52 | Oncology outpatient (recurring) (ONCR) | payer OTHER, SELFPAY ==
[2021-09-15 11:44] LABS: Basophils # 0.1 10^3/uL (0.0-0.1); Basophils % 0.7 %; Eosinophils # 1.3 10^3/uL (0.0-0.8); Eosinophils % 14.9 %; Hematocrit 37.5 % (42.0-52.0); Hemoglobin 12.3 g/dL (11.7-16.6); Lymphocytes # 1.5 10^3/uL (0.8-4.8); Mean Corpuscular HGB Conc 32.8 g/dL (30.0-36.0); Mean Corpuscular Hemoglobin 30.8 pg (28.0-34.0); Mean Platelet Volume 8.6 fL (7.4-10.4); Monocytes # 0.7 10^3/uL (0.2-0.9); Neutrophils # 4.85 10^3/uL (1.8-7.7); Nucleated Red Blood Cells % 0 %; Platelet Count 240 10^3/cmm (130-400); Red Blood Count 3.99 10^6/uL (4.1-5.3); Red Cell Distribution Width 14.8 % (12.1-15.1); White Blood Count 8.4 10^3/uL (4.0-10.0)
[2021-09-15 12:02] LABS: Alanine Aminotransferase 19 U/L (0-41); Albumin Level 4.2 g/dL (3.5-5.2); Alkaline Phosphatase 66 IU/L (40-130); Anion Gap 14.5 (5-19); Aspartate Amino Transferase 16 U/L (0-40); Blood Urea Nitrogen 10 mg/dL (8-23); Calcium 9.5 mg/dL (8.5-10.5); Carbon Dioxide 25 mmol/L (22-29); Chloride 96 mmol/L (98-107); Globulin 2.5 g/dL (1.3-4.6); Glucose 165 mg/dL (65-115); Osmolality Calculated 275 mOsm/kg (285-295); Potassium 4.5 mmol/L (3.5-5.1); Sodium 131 mmol/L (136-145); Total Bilirubin 0.3 mg/dL (0.15-1.2); Total Protein 6.7 g/dL (6.6-8.7)
[2021-09-15 12:09] LABS: Chol HDL Ratio 2.28 mg/dL (1.0-5.00); Cholesterol 107 mg/dL (0-200); HDL Cholesterol 47 mg/dL (60-100); LDL Cholesterol Calculated 42 mg/dL (50-129); LDL HDL Ratio 0.89 RATIO (0.00-3.22); Thyroid Stimulating Hormone 27.83 uIU/mL (0.27-4.20); Triglycerides 88 mg/dL (0-150)
[2021-09-15 12:30] LABS: Estmated Average Glucose 143; Hemoglobin A1C 6.6 % (4.0-6.0)
[2021-09-15] MEDS: durvalumab 1,500 MG in sodium chloride 0.9% 250 ML 280 MG IV (14:18)
[2021-09-15] MEDS: sodium chloride 0.9% 250 ML 75 ML IV (14:18)
== END 2021-10-12 23:59 | disposition home or self-care (01) ==
PROVIDERS: Internal Medicine; Nurse Practitioner Family; PCP Family Medicine; Visit Provider Internal Medicine Hematology & Oncology
DX: C34.11 Malignant neoplasm of upper lobe, right bronchus or lung (principal); Z87.891 Personal history of nicotine dependence; E11.51 Type 2 diabetes mellitus with diabetic peripheral angiopathy without gangrene; E03.9 Hypothyroidism, unspecified; E11.42 Type 2 diabetes mellitus with diabetic polyneuropathy; Z79.4 Long term (current) use of insulin; J43.9 Emphysema, unspecified
CPT/HCPCS: 36591; 80053; 80061; 83036; 84439; 84443; 85025; 96413; 99214; 99999; J7050; J9173

== ENCOUNTER 2021-09-22 07:02 | Outpatient (CLI) | payer OTHER, SELFPAY ==
[2021-09-22 07:22] VITALS: BMI 28.7
--- NOTE | 2021-09-22 07:22 | ECG_ITS ---
[facility] Test Date: 2021-09-22 Pat Name: Marbin Funez Department: Room: Gender: Male Regional Cra: Richa Zambrano : 1945 Requested By: Cornell Hoover Order Number: [id number] Rony MD: Cornell Hoover M.D. Interpretive Statements NAME OF STUDY: LEXISCAN SESTAMIBI STRESS TEST INDICATION: [Chest Pain, SOB, ] Procedure: At the baseline, the blood pressure was 158/90 with a heart rate of 76 bpm. The electrocardiogram showed normal sinus rhythm, normal axis with normal ST and T's. The Lexiscan was infused over a period of 20 seconds. A total of 0.4 mg of Lexiscan was infused. The stress phase was continued for a total of 5 minutes. Heart rate was at the end of stress phase was 90 bpm and a blood pressure of 161/77 mmHg. The EKG at the peak infusion revealed normal sinus rhythm with no significant ST-T wave changes. Sestamibi was injected 20 seconds after the Lexiscan infusion. Blood pressure at the end of recovery phase was 169/84 mmHg with a heart rate of 87 bpm. Conclusion: 1. Normal EKG response to Lexiscan infusion 2. No Lexiscan induced chest pain or cardiac arrhythmia. 3. Normal blood pressure and heart rate response. 4. Sestamibi/sestamibi perfusion scan pending; see separate report. Electronically Signed On 10-14-2021 15:19:08 CDT by Cornell Hoover M.D. [id number]
--- NOTE | 2021-09-22 07:23 | NMCV_ITS ---
NM amauri perf SPECT r/s* [id number] RandycarissaMarbin Age: 75 Gender: M : 1945 Exam Date: 09/22/2021 08:22 Ordering Phys: Cornell Hoover M.D ([email or web address]) Technologist: BILL Chapman Exam Location: [facility] Indications: SHORTNESS OF BREATH STRESS TEST Please see separate stress test report in [facility] for full findings IMAGE PROTOCOL Rest/Stress 1 Lexiscan Day Radiopharmaceutical Dose (mCi) Administration Site Administered by Rest: Tc-99m 11.0 IV BILL Garcia Sestamibi Stress:Tc-99m 32.7 IV BILL Garcia Sestamibi Rest: 22-Sep-2021 60 Discovery 630 Stress: 22-Sep-2021 30 Discovery 630 0.4mg Lexiscan. Images obtained in supine and prone position. SPECT RESULTS Technical Quality: Excellent Raw Data Analysis: Normal Image Corrections: No attenuation or motion correction applied Summed Stress Score: 14 Summed Rest Score: 10 Summed Difference Score: 4 PERFUSION FINDINGS There is a large in size, partially reversible perfusion defect in the apical inferior, inferior and inferolateral wall. This is consistent with large sized infarct with significant catracho-infarct ischemia in left circumflex artery and RCA territory. FUNCTIONAL RESULTS (calculated via Gated SPECT) Stress Image LV EF (%): 69 Stress EDV (mL):98 TID: 1.23 Stress ESV (mL):30 FUNCTIONAL FINDINGS: There is normal left ventricular systolic function. Elevated TID ratio IMPRESSIONS 1. Abnormal myocardial perfusion imaging with large sized infarct with significant catracho-infarct ischemia 2. LV systolic function is normal. Elevated TID ratio Cornell Hoover MD (Electronically Signed) Final Date: 26 Sep 2021 11:24 S
[2021-09-22] MEDS: regadenoson 0.4 Mg/5 ml Syringe IVP (08:50)
[2021-09-22 09:04] VITALS: BP 169/84; PULSE 88
== END 2021-09-22 07:03 | disposition home or self-care (01) ==
LOC: CDL 07:05
PROVIDERS: PCP Family Medicine; Visit Provider Internal Medicine
DX: R07.9 Chest pain, unspecified (principal); R06.02 Shortness of breath; R94.39 Abnormal result of other cardiovascular function study
CPT/HCPCS: 78452; 93017; A9500; J2785

== ENCOUNTER 2021-10-05 12:11 | Outpatient (CLI) | payer OTHER, SELFPAY ==
[2021-10-05 12:41] LABS: Basophils # 0.1 10^3/uL (0.0-0.1); Basophils % 0.9 %; Eosinophils # 1.3 10^3/uL (0.0-0.8); Eosinophils % 17.1 %; Hemoglobin 12.4 g/dL (11.7-16.6); Lymphocytes # 1.5 10^3/uL (0.8-4.8); Lymphocytes % 19.8 %; Mean Corpuscular HGB Conc 33.5 g/dL (30.0-36.0); Mean Corpuscular Hemoglobin 31.4 pg (28.0-34.0); Mean Corpuscular Volume 93.7 fl (80-94); Mean Platelet Volume 8.4 fL (7.4-10.4); Monocytes # 0.6 10^3/uL (0.2-0.9); Monocytes % 8.2 %; Neutrophils # 4.14 10^3/uL (1.8-7.7); Neutrophils % 53.7 %; Nucleated Red Blood Cells % 0 %; Platelet Count 224 10^3/cmm (130-400); Red Blood Count 3.95 10^6/uL (4.1-5.3); Red Cell Distribution Width 15.1 % (12.1-15.1); White Blood Count 7.7 10^3/uL (4.0-10.0)
[2021-10-05 12:53] LABS: INR 0.92 (0.83-1.21); Prothrombin Time (Patient) 12.7 Seconds (12.0-15.1)
[2021-10-05 13:14] LABS: Alanine Aminotransferase 18 U/L (0-41); Albumin Level 4.4 g/dL (3.5-5.2); Alkaline Phosphatase 57 IU/L (40-130); Anion Gap 12.5 (5-19); Aspartate Amino Transferase 16 U/L (0-40); Blood Urea Nitrogen 8 mg/dL (8-23); Calcium 9.8 mg/dL (8.5-10.5); Carbon Dioxide 28 mmol/L (22-29); Chloride 96 mmol/L (98-107); Globulin 2.6 g/dL (1.3-4.6); Glucose 154 mg/dL (65-115); Osmolality Calculated 275 mOsm/kg (285-295); Potassium 4.5 mmol/L (3.5-5.1); Sodium 132 mmol/L (136-145); Thyroid Stimulating Hormone 34.05 uIU/mL (0.27-4.20); Total Bilirubin 0.3 mg/dL (0.15-1.2)
== END 2021-10-05 12:12 | disposition home or self-care (01) ==
LOC: LAB 12:12
PROVIDERS: PCP Family Medicine; Visit Provider Internal Medicine
DX: C34.11 Malignant neoplasm of upper lobe, right bronchus or lung (principal); I73.9 Peripheral vascular disease, unspecified; E03.9 Hypothyroidism, unspecified; E78.5 Hyperlipidemia, unspecified; R58 Hemorrhage, not elsewhere classified
CPT/HCPCS: 80053; 84443; 85025; 85610

== ENCOUNTER 2021-10-07 06:05 | Outpatient (CLI) | payer OTHER, SELFPAY ==
[2021-10-07] VITALS (20 sets, daily range): BP systolic 125–186; BP diastolic 68–105; PULSE 66–83; RESP 12–24; TEMP 36.9; O2SAT 90–96; BMI 29.0
--- NOTE | 2021-10-07 06:00 | XACV_ITS ---
Exam Room: 2 Ht: 178 cm Wt: 92 kg BSA: 2.15 m2 Gender: Male : 1945 Any Known Allergies: No known allergies Exam Priority: Routine Procedure(s): Procedure Description: Diagnostic procedure Procedure Description: Left Heart Catheterization Procedure Description: Coronary Angiography Diagnostic Cath Status: Elective Diagnostic Findings * Left Anterior Descending has mild proximal vessel disease. Stent is patent in the mid segment. Large sized diagonal artery is patent Distal LAD supplies collaterals to RCA. * Circumflex gives rise to a large sized OM branch that is free of disease. Mid to distal LCx has moderate disease. * INDICATION: 76 year old man with pmh of diabetes, CAD with prior LAD stent who was having chest pain symptoms. He underwent stress test that was abnormal. Plan for coronary angiogram with possible percutaneous coronary intervention. * Left Main has no disease. * Proximal Right Coronary Artery: total occlusion, SEPIDEH: 0 flow. * Coronary angiography shows right dominance. Conclusions 1. PEAT SHREDDER TENDER of proximal RCA. Otherwise non obstructive CAD. Recommendations * Aggressive risk factor modification. * Outpatient cardiology follow up in 4 weeks. Interventional RX Recommendation: medical therapy and/or counseling Diagnostic RX Recommendation: medical therapy and/or counseling Pressures Phase:Rest AO : 126 / 69 ( 95 ) @ 9:13:00 AM 145 / 70 ( 102 ) @ 9:16:00 AM 139 / 52 ( 92 ) @ 9:16:00 AM LV : 149 / -6 / 16 @ 9:16:00 AM 136 / -10 / 9 @ 9:16:00 AM Valves Phase:DefaultPhase AV : 0.0 @ 8:21:36 AM AV Mean Gradient: 0.0 @ 8:21:36 AM Clinical Evaluation EBL: 5mL-10mL Procedural Details Procedure Consent Obtained. Admit Source: Out Patient. Pre-Procedure Time Out. Identified patient by full name and date of as verbalized by the patient/guarantor. Does the consent match the physician's order: Yes. Accurate & Complete Informed Consent: Yes. Inpatient/Outpatient History & Physical on Chart: Yes. If H&P is completed, is and addenduem needed: N/A; If yes, is the addendum complete: N/A. Visualize and Verify Site with Patient/Guarantor: N/A. Relevant Radiology Images available: N/A. Pre-op teaching completed and patient verbalized understanding. The risks, benefits, and alternatives of sedation and/or procedure were discussed by physician. The patient agrees to continue. Procedure started. [facility] Clinical Fraility Score: 3: Managing Well. Barman Indications: Worsening Angina. Chest Pain Symptom Assessment: Typical Angina Symptoms. Correct patient, site and procedure confirmed by cath team. Current diagnosis: Chest Pain. PERRLA. Strong, equal hand manager monitoring bilaterally. Lungs clear x 5 lobes. IV Site on Arrival: 18 gauge in the left anticubital. IV Fluids: 0.9% NaCl at KVO. 0 mL infused prior to skilled laborer. Pre Procedural Pulses: bilateral posterior tibial was 1+. Pre Procedural Pulses: bilateral dorsalis pedis was 1+. Pre Procedural Pulses: right radial was 3+. Oxygen started at 2liters/min via nasal canula. right groin was prepped with chloroprep then draped in the usual sterile fashion. right radial was prepped with chloroprep then draped in the usual sterile fashion. Physician notified. Baseline sample Acquired. HR: 81 BPM. Physician arrived. Physician scrubbed in. Immediate Pre-Procedure Time Out. Correct Patient: Yes; Correct Procedure: Yes; Correct Site: Yes; Correct Patient Position: Yes; Correct Supplies: Yes; Dried Flammable Prep: Yes; Blood Products Available: N/A;. Lidocaine 1% infiltrated to the right radial. Arterial access obtained. A 5 lithuanian TIG catheter in over wire. Multiple views taken of left coronary artery. Catheter redirected to the RCA. Catheter removed over the standard wire. A 5 lithuanian JR4 catheter in over wire. Multiple views taken of right coronary artery. EDP Sample taken: LV 149/-7,16; HR: 81 BPM; SpO2: 96%. Pullback taken: LV 136/-11,9; AO 145/70(102); Mean: 0mmHg, Peak to Peak: 0mmHg, SEP: 7sec/min; HR: 81 BPM; SpO2: 95%. Catheter out. A TR Band was successful obtaining hemostatsis at the Right Radial artery insertion site. Post Procedure: Pulses reassessed and unchanged. Post-op diagnosis: PEAT SHREDDER TENDER of RCA, Moderate CAD of Circumflex. Complications: none. Estimated blood loss: 5mL-10mL. Responsiveness - Normal response to verbal stimuli; alert and oriented, PERRLA. Airway - Unaffected, no intervention required; spontaneous ventilation. Circulation: W/N/L, pulses unchanged. Nausea/Vomiting: No. Procedure completed. PERRLA. Strong, equal hand manager monitoring bilaterally. No VTE prophylaxis required. Medication's Wasted: Lidocaine 1% = 3 mL. Medication's Wasted: Nitro = 49.8 mg. Medication's Wasted: Heparin = 1000 u. Medication's Wasted: Other = Fentanyl 50 mcg. Total IV fluids: 29 mL. Patient transferred by wheelchair to ICU. Vital chart was stopped. Access Site Site: Right Radial artery Sheath Size: 6 Fr Hemostasis Method: TR Band Hemostasis Success: Successful Procedure Medications Start: 7:46 AM Stop: 7:46 AM Medication: 0.9% Saline Amount: 75 ml/hr Route: I.V. drip Start: 7:48 AM Stop: 7:48 AM Medication: Fentanyl Amount: 50 mcg Route: I.V. Start: 8:01 AM Stop: 8:01 AM Medication: Versed Amount: 1 mg Route: I.V. Start: 8:04 AM Stop: 8:04 AM Medication: Nitrogylcerin Amount: 200 mcg Route: I.A. Start: 8:06 AM Stop: 8:06 AM Medication: Heparin Amount: 5000 units Route: I.V. Start: 8:13 AM Stop: 8:13 AM Medication: Versed Amount: 1 mg Route: I.V. I, the attending physician, have reviewed and verified all procedure medications. Yes, all medications given per verbal order History/Risk Factors Hypertension: No Dyslipidemia: No Peripheral Arterial Disease (PAD): Yes Myocardial Infarction (GA): No Obesity: Yes Renal Disease: No Tobacco Use: Former Prior Interventions PCI: Yes CABG: No Valve Surgery: No Date of PCI: 05/15/2020 Report Signatures Finalized by Cornell Hoover MD on 10/16/2021 06:15 PM
[2021-10-07] MEDS: diphenhydrAMINE 50 mg Capsule PO (06:25)
--- NOTE | 2021-10-07 07:58 | P.HP_ITS ---
Same Day Surgery H&P Indication for Procedure/HPI DATE OF PROCEDURE: October 07, 2021 CHIEF COMPLAINT/INDICATIONFOR SURGICAL PROCEDURE: Chest pain/ abnormal stress test PREOP DIAGNOSIS: Chest pain/ abnormal stress test PLANNED PROCEDURE: Operation Date: 10/07/21 07:00 Proposed Procedures p Cardiac Catheterization(Left) - Cornell Hoover M.D Possible percutaneous coronary intervention 74 year old man with pmh of diabetes, CAD with prior LAD stent who was having chest pain symptoms. He underwent stress test that was abnormal. Plan for coronary angiogram with possible percutaneous coronary intervention ROS CONSTITUTIONAL: No fever chills weight loss or gain or night sweats. [] RESPIRATORY: No cough, sputum, hemoptysis or wheezing.[] CARDIOVASCULAR:Has chest pain, no PND, orthopnea, lower extremity edema, presyncope or syncope. [] GI: no nausea vomiting diarrhea. [] PLASTIC SHEETS FINISHING SUPERVISOR: No numbness, tingling, weakness or loss of function in any part of the body. [] MUSCULOSKELETAL: No knee or joint pain or rashes. [] Medications/Allergies* Home Medications Medication Instructions Recorded Confirmed Type aspirin 81 mg tablet,delayed 81 mg PO DAILY@12 09/18/19 10/07/21 History release cholecalciferol (vitamin D3) 25 25 mcg PO DAILY@0730 09/18/19 10/07/21 History mcg (1,000 unit) capsule metformin 850 mg tablet 850 mg PO TID@0730,1200,1800 09/18/19 10/07/21 History insulin aspart U-100 100 unit/mL 12 unit SUBCUT TID ml 04/29/21 10/07/21 History (3 mL) subcutaneous pen (Novolog Flexpen U-100 Insulin aspart) insulin glargine 100 unit/mL (3 40 unit SUBCUT DAILY@22 ml 04/29/21 10/07/21 History mL) subcutaneous pen acarbose 100 mg tablet 100 mg PO TID 10/07/21 10/07/21 History atorvastatin 80 mg tablet 40 mg PO QPM 10/07/21 10/07/21 History cetirizine 10 mg tablet 10 mg PO DAILY 10/07/21 10/07/21 History guaifenesin 600 mg tablet, 600 mg PO BID 10/07/21 10/07/21 History extended release 12 hr isosorbide mononitrate 60 mg 90 mg PO QAM 10/07/21 10/07/21 History tablet,extended release 24 hr multivitamin 1 tab PO DAILY 10/07/21 10/07/21 History Allergies/Adverse Reactions Allergy/AdvReac Type Severity Reaction Status Date / Time No Known Allergies Allergy Verified 09/15/21 13:21 Current Medications: Generic Name Dose Route Start Last Admin Trade Name Bismarkq PRN Reason Stop Dose Admin Sodium Chloride 1,000 mls @ 50 mls/hr 10/07/21 06:00 10/07/21 06:44 Sodium Chloride 0.9% IV 10/08/21 01:59 Not Given .Q20H ONE Pertinent History/Comorbid Conditions* Medical History (Updated 08/25/21 @ 14:22 by Nova Barahona LPN) Bladder cancer Lung nodule PVD (peripheral vascular disease) Type 2 diabetes mellitus with diabetic polyneuropathy Surgical History (Updated 04/01/20 @ 09:04 by Stanislav Garcia MD) H/O colonoscopy H/O esophagogastroduodenoscopy (04/01/20) H/O heart artery stent History of bladder surgery History of bronchoscopy History of surgical removal of pilonidal cyst Port-A-Cath in place (04/01/20) Family History (Updated 09/18/19 @ 10:18 by Swetha King LPN) Diabetes CAD (coronary artery disease) Hyperlipidemia Lung disease Cancer Hypertension Denies family history of Clotting disorder Dementia Psychiatric illness Chronic kidney disease (CKD) Suicide Anesthesia complication Bleeding disorder Family history of premature coronary artery disease Stroke Social History Smoking and tobacco status: former smoker Quit status (tobacco): has quit using tobacco Year quit tobacco: 06-17 PPD x 45 Years Smoking risk assessment/counseling performed?: No Alcohol intake: never Counseling given: No Counseling given: No Lives independently: Yes Household members: spouse Marital status: service: Yes Current occupational status: retired History of recent travel: No Current gender identity: Male Pertinent Exam Findings alert, oriented x 3, clear to auscultation bilaterally and regular rate & rhythm Recommendations Surgery/Procedure today (Left heart cath with possible percutaneous coronary intervention) Coding Level of Care Code Acute Senior Telecommunications Engineer for Carmen Rosas
--- NOTE | 2021-10-07 08:30 | PC.NURSE ---
Received patient from orthodontic lab technician s/p procedure to CPRU 3. Pt drowsy and easily arouses to verbal stimuli. Breathing even and non-labored. Placed on bedside crystalizer operator. TR band to right wrist, clean and dry. No signs of bleeding or hematoma. Pt educated on activity restrictions and verbalized understanding.
--- NOTE | 2021-10-07 09:30 | PC.NURSE ---
3ml air removed from right radial TR band. Site asymptomatic, no signs of bleeding or hematoma. Right radial pulse palpable. Pt denies pain. Pt educated on activity restrictions with arm and reportable signs and symptoms. Pt verbalized understanding. Will continue to monitor.
--- NOTE | 2021-10-07 10:31 | PC.NURSE ---
1ml air removed from right radial TR band. Small area around puncture site bruised. No signs of bleeding or hematoma. Will continue to monitor.
--- NOTE | 2021-10-07 10:40 | PC.NURSE ---
1 ml air removed from TR band. No signs of bleeding or hematoma. Will continue to monitor.
--- NOTE | 2021-10-07 11:00 | PC.NURSE ---
2ml air removed from tr band. puncture site bruised. no signs of bleeding or hematoma. will continue to monitor.
--- NOTE | 2021-10-07 11:15 | PC.NURSE ---
2ml air removed from TR band. no signs of bleeding or hematoma noted. radial pulse palpable. will continue to monitor.
--- NOTE | 2021-10-07 11:30 | PC.NURSE ---
2ml air removed from right radial TR band. Site asymptomatic, no signs of bleeding or hematoma. Right radial pulse palpable.
--- NOTE | 2021-10-07 11:45 | PC.NURSE ---
3ml air removed from right radial TR band. bruising noted to puncture site, no signs of bleeding or hematoma.
--- NOTE | 2021-10-07 12:10 | PC.NURSE ---
TR band deflated and left in place for monitor of bleeding.
--- NOTE | 2021-10-07 12:20 | PC.NURSE ---
Dime size pulsatile hematoma noted to right wrist puncture site. Borders marked. TR band reapplied containing 10ml air. Will continue removal of air in 1 hour.
[2021-10-07] MEDS: insulin lispro 100 unit/1 mL SUBCUT (12:45)
--- NOTE | 2021-10-07 13:40 | PC.NURSE ---
Pt transferred to room 269 for extended care times until TR band comes off. Report given to ABDI Thurman.
--- NOTE | 2021-10-07 14:00 | PC.NURSE ---
minilab operator at bedside with patient. tr band in place, hematoma circled with pen. stable, no bleeding. will start to deflate tr band slowly. no needs identified by patient or .
--- NOTE | 2021-10-07 16:24 | PC.NURSE ---
RR: 18 BP:160/96 O2: 94 RM AIR TEMP: 97.6 ORAL HR: 73
--- NOTE | 2021-10-07 17:56 | PC.NURSE ---
pts tr band off, no evidence of new bleeding or hematoma. iv removed, discharge instructions given to pt and spouse. pt left via wc to private vehicle. verbalized understanding of all discharge instructions, no new medications.
== END 2021-10-07 16:45 | disposition home or self-care (01) ==
LOC: CCL 13:31 → MEDSURG 13:38
PROVIDERS: PCP Family Medicine; Visit Provider Internal Medicine
DX: R07.9 Chest pain, unspecified (principal); R94.39 Abnormal result of other cardiovascular function study; E11.9 Type 2 diabetes mellitus without complications; I25.10 Atherosclerotic heart disease of native coronary artery without angina pectoris; Z95.5 Presence of coronary angioplasty implant and graft; Z79.4 Long term (current) use of insulin; Z85.51 Personal history of malignant neoplasm of bladder; E11.40 Type 2 diabetes mellitus with diabetic neuropathy, unspecified; Z87.891 Personal history of nicotine dependence
CPT/HCPCS: 36415; 93452; 93458; 96360; 96361; 96372; 99152; 99153; C1769; C1887; C1894; J1644; J1815; J2250; J3010; J3490; J7030; Q0163; Q9967

== ENCOUNTER → 2021-10-13 09:02 | Outpatient (BNVA) | payer OTHER, SELFPAY | PROVIDERS: PCP Family Medicine; Visit Provider Internal Medicine Critical Care Medicine | DX: C34.90 Malignant neoplasm of unspecified part of unspecified bronchus or lung (principal); R04.2 Hemoptysis; J43.9 Emphysema, unspecified; Z87.891 Personal history of nicotine dependence | CPT/HCPCS: 99214 ==

== ENCOUNTER → 2021-10-15 10:17 | Outpatient (BNVA) | payer OTHER, SELFPAY | PROVIDERS: PCP Family Medicine; Visit Provider Nurse Practitioner Family | DX: I25.10 Atherosclerotic heart disease of native coronary artery without angina pectoris (principal); Z87.891 Personal history of nicotine dependence | CPT/HCPCS: 80048; 99213; 99214 ==

== ENCOUNTER 2021-10-18 14:24 | Oncology outpatient (recurring) (ONCR) | payer OTHER, SELFPAY ==
[2021-10-18 14:30] VITALS: BP 141/79; PULSE 110; RESP 18; TEMP 37.1; O2SAT 92
== END 2021-11-11 23:59 | disposition home or self-care (01) ==
LOC: ONCMED 14:24
PROVIDERS: PCP Family Medicine; Visit Provider Internal Medicine Hematology & Oncology
DX: C34.11 Malignant neoplasm of upper lobe, right bronchus or lung (principal)
CPT/HCPCS: 96523

== ENCOUNTER → 2021-11-08 10:34 | Outpatient (BNVA) | payer OTHER, SELFPAY | PROVIDERS: PCP Family Medicine; Visit Provider Podiatrist Foot & Ankle Surgery | DX: M79.671 Pain in right foot (principal); E11.42 Type 2 diabetes mellitus with diabetic polyneuropathy; Z79.4 Long term (current) use of insulin; M21.41 Flat foot [pes planus] (acquired), right foot; M21.42 Flat foot [pes planus] (acquired), left foot; L60.3 Nail dystrophy; E11.8 Type 2 diabetes mellitus with unspecified complications; L84 Corns and callosities; L30.9 Dermatitis, unspecified; M79.672 Pain in left foot | CPT/HCPCS: 11055; 11721 ==

== ENCOUNTER → 2021-11-12 09:35 | Outpatient (BNVA) | payer OTHER, SELFPAY | PROVIDERS: PCP Family Medicine; Visit Provider Internal Medicine Critical Care Medicine | DX: C34.90 Malignant neoplasm of unspecified part of unspecified bronchus or lung (principal); R04.2 Hemoptysis; J43.9 Emphysema, unspecified; Z87.891 Personal history of nicotine dependence; E11.42 Type 2 diabetes mellitus with diabetic polyneuropathy; Z86.16 Personal history of COVID-19; G47.33 Obstructive sleep apnea (adult) (pediatric) | CPT/HCPCS: 99213 ==

== ENCOUNTER 2021-11-18 14:28 | Oncology outpatient (recurring) (ONCR) | payer OTHER, SELFPAY ==
[2021-11-18 15:05] VITALS: BP 127/74; PULSE 82; RESP 18; TEMP 37.1; O2SAT 97
== END 2021-12-12 23:59 | disposition home or self-care (01) ==
LOC: ONCMED 14:29
PROVIDERS: PCP Family Medicine; Visit Provider Internal Medicine Hematology & Oncology
DX: C34.11 Malignant neoplasm of upper lobe, right bronchus or lung (principal); Z45.2 Encounter for adjustment and management of vascular access device
CPT/HCPCS: 96523

== ENCOUNTER → 2021-11-23 10:11 | Outpatient (BNVA) | payer OTHER, SELFPAY | PROVIDERS: PCP Family Medicine; Visit Provider Internal Medicine | DX: E11.42 Type 2 diabetes mellitus with diabetic polyneuropathy (principal); E11.59 Type 2 diabetes mellitus with other circulatory complications; E03.9 Hypothyroidism, unspecified; E78.5 Hyperlipidemia, unspecified; I73.9 Peripheral vascular disease, unspecified; Z79.4 Long term (current) use of insulin; Z79.84 Long term (current) use of oral hypoglycemic drugs; Z87.891 Personal history of nicotine dependence; I25.10 Atherosclerotic heart disease of native coronary artery without angina pectoris | CPT/HCPCS: 99215 ==

== ENCOUNTER → 2021-12-07 13:14 | Outpatient (BNVA) | payer OTHER, SELFPAY | PROVIDERS: PCP Family Medicine; Visit Provider Internal Medicine | DX: I77.0 Arteriovenous fistula, acquired (principal); R06.00 Dyspnea, unspecified; I77.9 Disorder of arteries and arterioles, unspecified; E11.42 Type 2 diabetes mellitus with diabetic polyneuropathy; Z79.4 Long term (current) use of insulin; C34.90 Malignant neoplasm of unspecified part of unspecified bronchus or lung; Z87.891 Personal history of nicotine dependence | CPT/HCPCS: 99214 ==

== ENCOUNTER → 2021-12-30 12:36 | Outpatient (BNVA) | payer OTHER, SELFPAY | PROVIDERS: PCP Family Medicine; Visit Provider Internal Medicine | DX: E11.42 Type 2 diabetes mellitus with diabetic polyneuropathy (principal); E11.59 Type 2 diabetes mellitus with other circulatory complications; E03.9 Hypothyroidism, unspecified; E78.5 Hyperlipidemia, unspecified; I73.9 Peripheral vascular disease, unspecified; I25.10 Atherosclerotic heart disease of native coronary artery without angina pectoris; Z79.4 Long term (current) use of insulin; Z87.891 Personal history of nicotine dependence; Z79.84 Long term (current) use of oral hypoglycemic drugs | CPT/HCPCS: 36415; 83036; 99214 ==

== ENCOUNTER 2022-01-10 10:00 | Oncology outpatient (recurring) (ONCR) | payer OTHER, SELFPAY ==
[2021-12-21] MEDS: alteplase 1 mg/mL SDV 2 mL 2 MG INTRACATH (12:05)
[2021-12-21 12:51] LABS: Basophils # 0.1 10^3/uL (0.0-0.1); Basophils % 0.9 %; Eosinophils % 14.3 %; Hematocrit 37.6 % (42.0-52.0); Hemoglobin 12.5 g/dL (11.7-16.6); Lymphocytes # 1.2 10^3/uL (0.8-4.8); Lymphocytes % 17.5 %; Mean Corpuscular HGB Conc 33.2 g/dL (30.0-36.0); Mean Corpuscular Hemoglobin 31.8 pg (28.0-34.0); Mean Corpuscular Volume 95.7 fl (80-94); Mean Platelet Volume 8.7 fL (7.4-10.4); Monocytes # 0.6 10^3/uL (0.2-0.9); Neutrophils # 4.07 10^3/uL (1.8-7.7); Neutrophils % 58.2 %; Nucleated Red Blood Cells % 0 %; Platelet Count 215 10^3/cmm (130-400); Red Blood Count 3.93 10^6/uL (4.1-5.3); Red Cell Distribution Width 13.5 % (12.1-15.1)
[2021-12-21 13:13] LABS: Alanine Aminotransferase 17 U/L (0-41); Albumin Level 4.2 g/dL (3.5-5.2); Alkaline Phosphatase 52 IU/L (40-130); Anion Gap 12.2 (5-19); Aspartate Amino Transferase 18 U/L (0-40); Blood Urea Nitrogen 11 mg/dL (8-23); Calcium 9.6 mg/dL (8.5-10.5); Carbon Dioxide 29 mmol/L (22-29); Chloride 99 mmol/L (98-107); Globulin 2.2 g/dL (1.3-4.6); Glucose 91 mg/dL (65-115); Osmolality Calculated 281 mOsm/kg (285-295); Potassium 4.2 mmol/L (3.5-5.1); Sodium 136 mmol/L (136-145); Total Bilirubin 0.4 mg/dL (0.15-1.2); Total Protein 6.4 g/dL (6.6-8.7)
--- NOTE | 2022-01-10 10:00 | CT_ITS ---
WS: [id number] CT CHEST TECHNIQUE: Contrast enhanced CT of the chest with coronal and sagittal reformatted images. CLINICAL INFORMATION: surveillance COMPARISON: CTA November 09, [address] April 17, 2021 DLP: 782.[address] scans at [facility] use at least one of these dose optimization techniques: automated e xposure control; mA and/or kV adjustment per patient size (includes targeted exams where dose is matc hed to clinical indication); or iterative reconstruction. FINDINGS: Moderate chronic emphysematous changes. Trace right pleural effusion. Normal caliber thoracic aorta. Aortic calcification. Proximal main pulmonary arteries are normal. Volume loss in the right upper lobe with partial opacification along the right hilum and supra hilum. Findings likely due to radiation therapy. Fibrotic appearing changes the right upper lobe with pleur al thickening similar to previous. Bronchovascular thickening along the right hilum. Adrenal glands are normal. Small esophageal hiatal hernia. Thoracic kyphosis. CT/CT chest w con* [id number] IMPRESSION: 1. No evidence of new or progressive disease. 2. Stable treatment-related changes with bronchovascular soft tissue thickenin g along the RIGHT hilum and supra hilum with associated volume loss. 3. Volume loss in RIGHT upper lobe with partial opacification likely due to tr eatment-related changes 4. No mediastinal or hilar lymphadenopathy. 5. No other significant changes compared to previous.
[2022-01-10] MEDS: iohexol 350 mg/mL 100 mL Btl IV (10:14)
== END 2022-01-12 23:59 | disposition home or self-care (01) ==
LOC: RAD 01-11 00:01 → ONCMED 01-11 04:36
PROVIDERS: PCP Family Medicine; Visit Provider Internal Medicine Hematology & Oncology
DX: C34.11 Malignant neoplasm of upper lobe, right bronchus or lung (principal)
CPT/HCPCS: 36591; 71260; 80053; 85025; 99214; J2997; Q9967

== ENCOUNTER → 2022-01-14 09:03 | Outpatient (BNVA) | payer OTHER, SELFPAY | PROVIDERS: PCP Family Medicine; Visit Provider Internal Medicine Critical Care Medicine | DX: C34.11 Malignant neoplasm of upper lobe, right bronchus or lung (principal); R04.2 Hemoptysis; J43.9 Emphysema, unspecified | CPT/HCPCS: 99214 ==

== ENCOUNTER → 2022-01-19 13:58 | Outpatient (BNVA) | payer OTHER, SELFPAY | PROVIDERS: PCP Family Medicine; Visit Provider Internal Medicine | DX: I77.0 Arteriovenous fistula, acquired (principal); R60.0 Localized edema; I77.9 Disorder of arteries and arterioles, unspecified; E11.42 Type 2 diabetes mellitus with diabetic polyneuropathy; Z79.4 Long term (current) use of insulin; C34.90 Malignant neoplasm of unspecified part of unspecified bronchus or lung; Z87.891 Personal history of nicotine dependence | CPT/HCPCS: 99214 ==

== ENCOUNTER 2022-01-20 14:38 | Oncology outpatient (recurring) (ONCR) | payer OTHER, SELFPAY ==
[2022-01-20 14:50] VITALS: BP 118/62; PULSE 86; RESP 18; TEMP 36.8; O2SAT 96
== END 2022-02-11 23:59 | disposition home or self-care (01) ==
PROVIDERS: PCP Family Medicine; Visit Provider Internal Medicine Hematology & Oncology
DX: Z45.2 Encounter for adjustment and management of vascular access device (principal); C34.11 Malignant neoplasm of upper lobe, right bronchus or lung
CPT/HCPCS: 96523

== ENCOUNTER → 2022-02-01 08:33 | Outpatient (BNVA) | payer OTHER, SELFPAY | PROVIDERS: PCP Family Medicine; Visit Provider Podiatrist Foot & Ankle Surgery | DX: I73.9 Peripheral vascular disease, unspecified (principal); E11.42 Type 2 diabetes mellitus with diabetic polyneuropathy; L30.9 Dermatitis, unspecified; L60.3 Nail dystrophy; L84 Corns and callosities; Z79.84 Long term (current) use of oral hypoglycemic drugs; Z79.4 Long term (current) use of insulin | CPT/HCPCS: 11055; 11721; 99213 ==

== ENCOUNTER 2022-02-16 14:29 | Outpatient (CLI) | payer OTHER, SELFPAY ==
--- NOTE | 2022-02-16 17:15 | USCV_ITS ---
Marbin Funez Age: 76 Gender: M : 1945 Exam Date: 02/16/2022 15:30 Ordering Phys: Cornell Hoover M.D ([email or web address]) Technologist: DOREEN Exam Location: [facility] – [place], [place] Indication: Leg pain Risk Factors: Previous Vascular Surgery: Stents and balloon put in multiple places in Pt's RT leg. No left leg surgery Stents and balloon put in multiple places in Pt's RT leg. No left leg surgery Multiplw stents and balloons placed on RT leg. No left leg surgery RIGHT LEFT BP: 140.0 / 67.00 BP: 133.0/ 65.00 0 0 Waveform Velocity (cm/s) Velocity (cm/s) Waveform Biphasic 70.5 Iliac Prox 95.4 Biphasic Biphasic 88.3 Iliac Mid 93.2 Triphasic Biphasic 60.4 Iliac Distal 156.2 Biphasic Biphasic 87.2 DOLLY OPERATOR 73.9 Biphasic Biphasic 99.2 SFA Prox 45.6 Biphasic Biphasic 84.3 SFA Mid 129.1 Biphasic Biphasic 105.4 SFA Dist 79.8 Monophasic Biphasic 61.3 POP 71.9 Monophasic N/A TRANSIT POLICE OFFICER N/A Biphasic 43.5 DPA N/A 0.7 KATHERYN FINDINGS Biphasic Doppler flow pattern is noted throughout the right lower extremity. Evidence of severe bilateral lower extremity arterial disease demonstrated. Suggestive evidence but not diagnostic of arterial occlusion in bilateral lower extremities. Moderate to heavy plaques in the left iliac artery Heavy heterogenous plaques in the tibioperoneal trunk on the left side. No flow was detected in the left dorsalis pedis and posterior artery. Normal Doppler flow signals in the right posterior tibial artery. CONCLUSIONS Arterial atherosclerosis noted in bilateral lower extremities. Abnormal resting KATHERYN on the right side(0.7), suggestive of moderate peripheral arterial disease. Posterior tibial artery on the right side appears to be occluded Both the posterior tibial and the dorsalis pedis arteries on the left side appears to be occluded Moderate to heavy diffuse plaques in the iliac and tibioperoneal trunk on the left side Compared to the study from 01/22/2021, there is significant worsening of disease in the infrapopliteal vessels bilaterally Dr Sharif Arias MD [facility] (Electronically Signed) Final Date: 17 February 2022 20:50 S
== END 2022-02-16 14:30 | disposition home or self-care (01) ==
LOC: RAD 14:30
PROVIDERS: PCP Family Medicine; Visit Provider Internal Medicine
DX: M79.606 Pain in leg, unspecified (principal); I70.8 Atherosclerosis of other arteries
CPT/HCPCS: 93925

== ENCOUNTER 2022-02-21 14:56 | Oncology outpatient (recurring) (ONCR) | payer OTHER, SELFPAY ==
[2022-02-21 15:16] VITALS: BP 118/72; PULSE 82; RESP 16; TEMP 37.1; O2SAT 95
== END 2022-03-14 23:59 | disposition home or self-care (01) ==
LOC: ONCMED 14:56
PROVIDERS: PCP Family Medicine; Visit Provider Internal Medicine Hematology & Oncology
DX: Z45.2 Encounter for adjustment and management of vascular access device (principal)
CPT/HCPCS: 96523

== ENCOUNTER 2022-03-23 12:27 | Oncology outpatient (recurring) (ONCR) | payer OTHER, SELFPAY ==
[2022-03-23 13:13] LABS: Basophils # 0.1 10^3/uL (0.0-0.1); Eosinophils # 1.4 10^3/uL (0.0-0.8); Eosinophils % 17.2 %; Hematocrit 38.4 % (42.0-52.0); Hemoglobin 12.7 g/dL (11.7-16.6); Lymphocytes % 23.7 %; Mean Corpuscular HGB Conc 33.1 g/dL (30.0-36.0); Mean Corpuscular Hemoglobin 31.1 pg (28.0-34.0); Mean Corpuscular Volume 94.1 fl (80-94); Mean Platelet Volume 8.4 fL (7.4-10.4); Monocytes # 0.7 10^3/uL (0.2-0.9); Monocytes % 8.1 %; Neutrophils # 4.12 10^3/uL (1.8-7.7); Neutrophils % 49.6 %; Nucleated Red Blood Cells % 0 %; Platelet Count 228 10^3/cmm (130-400); Red Blood Count 4.08 10^6/uL (4.1-5.3); Red Cell Distribution Width 13.7 % (12.1-15.1); White Blood Count 8.3 10^3/uL (4.0-10.0)
[2022-03-23 13:29] LABS: Alanine Aminotransferase 17 U/L (0-41); Albumin Level 3.9 g/dL (3.5-5.2); Alkaline Phosphatase 63 U/L (40-130); Anion Gap 15.3 (5-19); Aspartate Amino Transferase 14 U/L (0-40); Blood Urea Nitrogen 16 mg/dL (8-23); Calcium 9.5 mg/dL (8.5-10.5); Carbon Dioxide 27 mmol/L (22-29); Chloride 97 mmol/L (98-107); Creatinine Clr Calc Pharmacy 79.3182; Globulin 2.6 g/dL (1.3-4.6); Glucose 176 mg/dL (65-115); Osmolality Calculated 285 mOsm/kg (285-295); Potassium 4.3 mmol/L (3.5-5.1); Sodium 135 mmol/L (136-145); Total Bilirubin 0.4 mg/dL (0.15-1.2); Total Protein 6.5 g/dL (6.6-8.7)
== END 2022-04-13 23:59 | disposition home or self-care (01) ==
PROVIDERS: Nurse Practitioner Family; PCP Family Medicine; Visit Provider Internal Medicine Hematology & Oncology
DX: Z08 Encounter for follow-up examination after completed treatment for malignant neoplasm; Z85.118 Personal history of other malignant neoplasm of bronchus and lung; R73.9 Hyperglycemia, unspecified; E87.1 Hypo-osmolality and hyponatremia; R04.2 Hemoptysis; Z79.899 Other long term (current) drug therapy; Z87.891 Personal history of nicotine dependence; Z92.21 Personal history of antineoplastic chemotherapy
CPT/HCPCS: 36591; 80053; 85025; 99214

== ENCOUNTER → 2022-04-21 14:20 | Outpatient (BNVA) | payer OTHER, SELFPAY | PROVIDERS: PCP Family Medicine; Visit Provider Internal Medicine | DX: E11.42 Type 2 diabetes mellitus with diabetic polyneuropathy (principal); E11.59 Type 2 diabetes mellitus with other circulatory complications; E03.9 Hypothyroidism, unspecified; E78.5 Hyperlipidemia, unspecified; I25.10 Atherosclerotic heart disease of native coronary artery without angina pectoris; I73.9 Peripheral vascular disease, unspecified; Z79.4 Long term (current) use of insulin | CPT/HCPCS: 99214 ==

== ENCOUNTER → 2022-04-25 12:38 | Outpatient (BNVA) | payer OTHER, SELFPAY | PROVIDERS: PCP Family Medicine; Visit Provider Internal Medicine Pulmonary Disease | DX: C34.11 Malignant neoplasm of upper lobe, right bronchus or lung (principal); J43.9 Emphysema, unspecified; Z87.891 Personal history of nicotine dependence; R04.2 Hemoptysis | CPT/HCPCS: 36415; 85025; 99214 ==

== ENCOUNTER 2022-04-26 14:00 | Oncology outpatient (recurring) (ONCR) | payer OTHER, SELFPAY | END 2022-05-14 23:59 | disposition home or self-care (01) | PROVIDERS: PCP Family Medicine; Visit Provider Internal Medicine Hematology & Oncology | DX: Z53.9 Procedure and treatment not carried out, unspecified reason (principal) | CPT/HCPCS: 96523 ==

== ENCOUNTER → 2022-05-17 08:33 | Outpatient (BNVA) | payer OTHER, SELFPAY | PROVIDERS: PCP Family Medicine; Visit Provider Podiatrist Foot & Ankle Surgery | DX: I73.9 Peripheral vascular disease, unspecified (principal); E11.42 Type 2 diabetes mellitus with diabetic polyneuropathy; L30.9 Dermatitis, unspecified; L60.3 Nail dystrophy; L84 Corns and callosities; Z79.4 Long term (current) use of insulin; Z79.84 Long term (current) use of oral hypoglycemic drugs | CPT/HCPCS: 11055; 11721 ==

== ENCOUNTER 2022-05-26 08:28 | Oncology outpatient (recurring) (ONCR) | payer OTHER, SELFPAY ==
--- NOTE | 2022-05-26 09:02 | XR_ITS ---
WS: [id number] XR chest 2V* [id number] REASON FOR EXAM: Soreness over the last 3 weeks FINDINGS: Chemotherapy infusion port in place over the left chest with catheter transvenous left subclavian vei n to the superior vena cava where the tip is located. Catheter position is essentially unchanged comp ared to 12/02/2020. Complex medial left upper lung mass is again noted but appears to be of somewhat decreased volume com pared to the previous examination. The remainder of the right lung is unchanged. There are coarse reticular interstitial lung opacities in the left lower lung which are unchanged com pared to 12/02/2020. XR/XR chest 2V* [id number] IMPRESSION: Stable abnormal chest.
== END 2022-06-14 23:59 | disposition home or self-care (01) ==
LOC: ONCMED 08:28
PROVIDERS: PCP Family Medicine; Visit Provider Internal Medicine Hematology & Oncology
DX: Z95.828 Presence of other vascular implants and grafts; Z45.2 Encounter for adjustment and management of vascular access device
CPT/HCPCS: 71046; 96523

== ENCOUNTER 2022-06-28 12:37 | Oncology outpatient (recurring) (ONCR) | payer OTHER, SELFPAY ==
[2022-06-28 12:48] VITALS: BP 139/67; PULSE 84; RESP 16; TEMP 36.1; O2SAT 97
== END 2022-07-12 23:59 | disposition home or self-care (01) ==
LOC: ONCMED 12:37
PROVIDERS: PCP Family Medicine; Visit Provider Internal Medicine Hematology & Oncology
DX: Z45.2 Encounter for adjustment and management of vascular access device; Z95.828 Presence of other vascular implants and grafts
CPT/HCPCS: 96523

== ENCOUNTER 2022-07-21 13:03 | Outpatient (CLI) | payer OTHER, SELFPAY ==
--- NOTE | 2022-07-21 13:30 | CT_ITS ---
WS: [id number] CT CHEST TECHNIQUE: Contrast enhanced CT of the chest with coronal and sagittal reformatted images. CLINICAL INFORMATION: Follow up COMPARISON: CT chest January 10, 2022 DLP: 544.[address] scans at [facility] use at least one of these dose optimization techniques: automated e xposure control; mA and/or kV adjustment per patient size (includes targeted exams where dose is matc hed to clinical indication); or iterative reconstruction. FINDINGS:Volume loss in the right upper lobe with partial opacification along the right hilum and sup ra hilum unchanged compared to previous. Findings likely due to radiation therapy and treatment-relat ed changes.. Fibrotic appearing changes the right upper lobe with pleural thickening similar to previ ous. Bronchovascular thickening along the right hilum. No evidence of new or progressive disease. Moderate chronic emphysematous changes. Normal caliber thoracic aorta. Aortic calcification. Adrena l glands are normal. Small esophageal hiatal hernia. Thoracic kyphosis CT/CT chest w con* [id number] IMPRESSION: 1. No evidence of new or progressive disease. 2. Stable treatment-related changes with bronchovascular soft tissue thickenin g along the RIGHT hilum and supra hilum with associated volume loss. 3. No mediastinal or hilar lymphadenopathy. 4. No other significant changes compared to previous.
[2022-07-21] MEDS: iohexol 350 mg/mL 500 mL Btl (per mL) IV (13:46)
[2022-07-21 13:51] LABS: Blood Urea Nitrogen 13 mg/dL (8-23)
== END 2022-07-21 13:04 | disposition home or self-care (01) ==
LOC: RAD 13:06
PROVIDERS: PCP Family Medicine; Visit Provider Internal Medicine Hematology & Oncology
DX: C34.11 Malignant neoplasm of upper lobe, right bronchus or lung (principal)
CPT/HCPCS: 71260; 82565; 84520; Q9967

== ENCOUNTER 2022-07-28 12:26 | Oncology outpatient (recurring) (ONCR) | payer OTHER, SELFPAY ==
[2022-07-28 12:50] LABS: Basophils # 0.1 10^3/uL (0.0-0.1); Basophils % 0.7 %; Eosinophils # 1.2 10^3/uL (0.0-0.8); Hematocrit 41.6 % (42.0-52.0); Hemoglobin 13.3 g/dL (11.7-16.6); Lymphocytes % 20.2 %; Mean Corpuscular Hemoglobin 29.2 pg (28.0-34.0); Mean Corpuscular Volume 91.4 fl (80-94); Mean Platelet Volume 8.6 fL (7.4-10.4); Monocytes # 0.8 10^3/uL (0.2-0.9); Monocytes % 8.4 %; Neutrophils # 5.63 10^3/uL (1.8-7.7); Neutrophils % 58.2 %; Nucleated Red Blood Cells % 0 %; Platelet Count 289 10^3/cmm (130-400); Red Blood Count 4.55 10^6/uL (4.1-5.3); Red Cell Distribution Width 14.2 % (12.1-15.1); White Blood Count 9.7 10^3/uL (4.0-10.0)
[2022-07-28 13:11] LABS: Alanine Aminotransferase 17 U/L (0-41); Albumin Level 4.1 g/dL (3.5-5.2); Alkaline Phosphatase 79 U/L (40-130); Blood Urea Nitrogen 15 mg/dL (8-23); Calcium 9.8 mg/dL (8.5-10.5); Carbon Dioxide 27 mmol/L (22-29); Chloride 100 mmol/L (98-107); Globulin 2.9 g/dL (1.3-4.6); Glucose 126 mg/dL (65-115); Osmolality Calculated 286 mOsm/kg (285-295); Sodium 137 mmol/L (136-145); Total Bilirubin 0.2 mg/dL (0.15-1.2)
[2022-07-28 13:13] LABS: Anion Gap 14.3 (5-19); Potassium 4.3 mmol/L (3.5-5.1)
[2022-07-28 13:14] LABS: Aspartate Amino Transferase 19 U/L (0-40)
== END 2022-08-12 23:59 | disposition home or self-care (01) ==
PROVIDERS: PCP Family Medicine; Visit Provider Internal Medicine Hematology & Oncology
DX: Z08 Encounter for follow-up examination after completed treatment for malignant neoplasm (principal); Z85.118 Personal history of other malignant neoplasm of bronchus and lung; E11.42 Type 2 diabetes mellitus with diabetic polyneuropathy; Z79.4 Long term (current) use of insulin; J43.9 Emphysema, unspecified; Z79.899 Other long term (current) drug therapy; Z87.891 Personal history of nicotine dependence; Z92.21 Personal history of antineoplastic chemotherapy
CPT/HCPCS: 80053; 85025; 99214

== ENCOUNTER → 2022-08-04 10:42 | Outpatient (BNVA) | payer OTHER, SELFPAY | PROVIDERS: PCP Family Medicine; Visit Provider Internal Medicine Pulmonary Disease | DX: C34.90 Malignant neoplasm of unspecified part of unspecified bronchus or lung (principal); J43.9 Emphysema, unspecified; I73.9 Peripheral vascular disease, unspecified; E11.42 Type 2 diabetes mellitus with diabetic polyneuropathy; Z87.891 Personal history of nicotine dependence; J90 Pleural effusion, not elsewhere classified; L30.9 Dermatitis, unspecified; L60.3 Nail dystrophy; Z92.21 Personal history of antineoplastic chemotherapy; L84 Corns and callosities; Z92.25 Personal history of immunosuppression therapy; Z79.84 Long term (current) use of oral hypoglycemic drugs; Z79.4 Long term (current) use of insulin | CPT/HCPCS: 11055; 11721; 99214 ==

== ENCOUNTER → 2022-08-24 13:24 | Outpatient (BNVA) | payer OTHER, SELFPAY | PROVIDERS: PCP Family Medicine; Visit Provider Internal Medicine | DX: E11.42 Type 2 diabetes mellitus with diabetic polyneuropathy (principal); E11.59 Type 2 diabetes mellitus with other circulatory complications; E03.9 Hypothyroidism, unspecified; I73.9 Peripheral vascular disease, unspecified; E78.5 Hyperlipidemia, unspecified; Z79.4 Long term (current) use of insulin; Z79.84 Long term (current) use of oral hypoglycemic drugs; Z79.890 Hormone replacement therapy | CPT/HCPCS: 99214 ==

== ENCOUNTER 2022-08-29 13:03 | Oncology outpatient (recurring) (ONCR) | payer OTHER, SELFPAY ==
[2022-08-29 13:19] VITALS: BP 148/79; PULSE 85; TEMP 36.8; O2SAT 99
== END 2022-09-11 23:59 | disposition home or self-care (01) ==
LOC: ONCMED 13:04
PROVIDERS: PCP Family Medicine; Visit Provider Internal Medicine Hematology & Oncology
DX: Z45.2 Encounter for adjustment and management of vascular access device (principal)
CPT/HCPCS: 96523

== ENCOUNTER → 2022-09-15 12:24 | Outpatient (BNVA) | payer OTHER, SELFPAY | PROVIDERS: PCP Family Medicine; Visit Provider Internal Medicine | DX: I77.0 Arteriovenous fistula, acquired (principal); R60.0 Localized edema; I77.9 Disorder of arteries and arterioles, unspecified; E11.42 Type 2 diabetes mellitus with diabetic polyneuropathy; C34.90 Malignant neoplasm of unspecified part of unspecified bronchus or lung; Z87.891 Personal history of nicotine dependence; Z79.4 Long term (current) use of insulin | CPT/HCPCS: 99214 ==

== ENCOUNTER 2022-09-16 06:46 | Outpatient (CLI) | payer OTHER, SELFPAY ==
--- NOTE | 2022-09-16 07:15 | USCV_ITS ---
Marbin Funez Age: 76 Gender: M : 1945 Exam Date: 09/16/2022 07:00 Ordering Phys: Cornell Hoover M.D ([email or web address]) Technologist: MARGOT Exam Location: [facility] – [place] Indication: pad stents in rt leg Risk Factors: Previous Vascular Surgery: RIGHT LEFT BP: 140.0 / 85.00 BP: 140.0/ 85.00 0 0 Waveform Velocity (cm/s) Velocity (cm/s) Waveform Biphasic 188.9 Iliac Prox 88.1 Monophasic Biphasic 169.1 Iliac Mid 92.0 Monophasic Biphasic 176.3 Iliac Distal 82.8 Monophasic Biphasic 140.3 RELATIONSHIP MANAGER 62.4 Monophasic Biphasic 154.7 SFA Prox 44.4 Monophasic Biphasic 98.9 SFA Mid 51.3 Monophasic Biphasic 82.8 SFA Dist 83.7 Monophasic Biphasic 127.7 POP 63.2 Monophasic Biphasic 140.3 AUTOMOBILE ACCESSORIES INSTALLER 59.8 Monophasic Biphasic 91.0 DPA 31.6 Monophasic 1.3 KATHERYN 1.3 FINDINGS Moderate dense irregular plaques in the iliac and femoral artery on the left side Mild to moderate diffuse plaque in the iliac and femoral arteries on the left side Resting KATHERYN 1.3 bilaterally CONCLUSIONS 1. Normal resting ABIs bilaterally 2. Mild to moderate, diffuse dense plaques in the iliac and femoral arteries bilaterally. 3. Normal resting ABIs bilaterally suggesting no significant arterial obstruction Dr Sharif Arias MD [facility] (Electronically Signed) Final Date: 20 Sep 2022 00:07 S
== END 2022-09-16 06:47 | disposition home or self-care (01) ==
LOC: RAD 06:47
PROVIDERS: PCP Family Medicine; Visit Provider Internal Medicine
DX: I73.9 Peripheral vascular disease, unspecified (principal); I77.9 Disorder of arteries and arterioles, unspecified
CPT/HCPCS: 93925

== ENCOUNTER 2022-09-27 12:46 | Oncology outpatient (recurring) (ONCR) | payer OTHER, SELFPAY ==
[2022-09-27 13:10] VITALS: BP 126/74; PULSE 90; RESP 16; TEMP 36.6; O2SAT 95
== END 2022-10-12 23:59 | disposition home or self-care (01) ==
LOC: ONCMED 12:47
PROVIDERS: PCP Family Medicine; Visit Provider Internal Medicine Hematology & Oncology
DX: Z45.2 Encounter for adjustment and management of vascular access device (principal)
CPT/HCPCS: 96523

== ENCOUNTER → 2022-10-13 13:32 | Outpatient (BNVA) | payer OTHER, SELFPAY | PROVIDERS: PCP Family Medicine; Visit Provider Internal Medicine | DX: I77.0 Arteriovenous fistula, acquired (principal); R60.0 Localized edema; I77.9 Disorder of arteries and arterioles, unspecified; E11.42 Type 2 diabetes mellitus with diabetic polyneuropathy; Z79.4 Long term (current) use of insulin; Z87.891 Personal history of nicotine dependence; C34.90 Malignant neoplasm of unspecified part of unspecified bronchus or lung; R07.9 Chest pain, unspecified | CPT/HCPCS: 99214 ==

== ENCOUNTER 2022-10-25 12:48 | Oncology outpatient (recurring) (ONCR) | payer OTHER, SELFPAY ==
[2022-10-25 13:23] VITALS: BP 113/67; PULSE 99; RESP 18; TEMP 36.6; O2SAT 97
== END 2022-11-11 23:59 | disposition home or self-care (01) ==
PROVIDERS: PCP Family Medicine; Visit Provider Internal Medicine Hematology & Oncology
DX: Z45.2 Encounter for adjustment and management of vascular access device (principal); Z08 Encounter for follow-up examination after completed treatment for malignant neoplasm
CPT/HCPCS: 96523; J1642

== ENCOUNTER 2022-10-31 09:27 | Outpatient (CLI) | payer OTHER, SELFPAY ==
--- NOTE | 2022-10-31 | ECG_ITS ---
[facility] Test Date: 2022-10-31 Pat Name: Marbin Funez Department: Room: Gender: Male Site Acquisition Manager: : 1945 Requested By: Cornell Hoover Order Number: [id number] Rony MD: Cornell Hoover M.D. Interpretive Statements NAME OF STUDY: LEXISCAN SESTAMIBI STRESS TEST INDICATION: [Chest Pain/SOB, ] Procedure: At the baseline, the blood pressure was 159/78 mmHg with a heart rate of 85 bpm. The electrocardiogram showed normal sinus rhythm, normal axis with normal ST and T's. The Lexiscan was infused over a period of 20 seconds. A total of 0.4 mg of Lexiscan was infused. The stress phase was continued for a total of 5 minutes. Heart rate was at the end of stress phase was 95 bpm and a blood pressure of 141/78 mmHg. The EKG at the peak infusion revealed normal sinus rhythm with no significant ST-T wave changes. Sestamibi was injected 20 seconds after the Lexiscan infusion. Blood pressure at the end of recovery phase was 146/91 mmHg with a heart rate of 95 bpm. Conclusion: 1. Normal EKG response to Lexiscan infusion 2. No Lexiscan induced chest pain or cardiac arrhythmia. 3. Normal blood pressure and heart rate response. 4. Sestamibi/sestamibi perfusion scan pending; see separate report. Electronically Signed On 11-04-2022 16:15:42 CDT by Cornell Hoover M.D. [id number]
--- NOTE | 2022-10-31 09:32 | NMCV_ITS ---
NM amauri perf SPECT r/s* [id number] Marbin Funez Age: 77 Gender: M : 1945 Exam Date: 10/31/2022 09:32 Ordering Phys: Cornell Hoover M.D ([email or web address]) Technologist: BILL Chapman Exam Location: [facility] Indications: CHEST PAIN STRESS TEST Please see separate stress test report in [facility] for full findings IMAGE PROTOCOL Rest/Stress 1 Lexiscan Day Radiopharmaceutical Dose (mCi) Administration Site Administered by Rest: Tc-99m 10.5 IV BILL Garcia Sestamibi Stress:Tc-99m 32.9 IV BILL Garcia Sestamibi Rest: 31-Oct-2022 60 Discovery 630 Stress: 31-Oct-2022 30 Discovery 630 0.4mg Lexiscan. Images obtained in supine and prone position. SPECT RESULTS Technical Quality: Excellent Raw Data Analysis: Normal Image Corrections: No attenuation or motion correction applied Summed Stress Score: 8 Summed Rest Score: 3 Summed Difference Score: 6 PERFUSION FINDINGS There is a mostly reversible perfusion defect in the inferior wall with large area of catracho-infarct ischemia. This is consistent with medium sized area of prior infarct with large catracho-infarct ischemia in RCA territory. There is a medium sized partially reversible perfusion defect noted in inferolateral wall. This is consistent with medium sized area of prior infarct with catracho-infarct ischemia in left circumflex artery territory. FUNCTIONAL RESULTS (calculated via Gated SPECT) Stress Image LV EF (%): 55 Stress EDV (mL):88 TID: 1.24 Stress ESV (mL):40 FUNCTIONAL FINDINGS: LV systolic function is normal. TID ratio is elevated IMPRESSIONS 1. Abnormal myocardial perfusion imaging with medium sized area of prior infarct with large area of catracho-infarct ischemia in the RCA territory. 2. Medium sized area of prior infarct is noted in the left circumflex artery territory with catracho-infarct ischemia 3. LV systolic function is normal 4. TID ratio is elevated. This is possibly consistent with sub-endocardial ischemia/multivessel coronary artery disease Cornell Hoover MD (Electronically Signed) Final Date: 31 October 2022 18:16 S
[2022-10-31 09:35] VITALS: BMI 30.5
[2022-10-31] MEDS: regadenoson 0.4 Mg/5 ml Syringe IVP (11:17)
[2022-10-31 11:33] VITALS: BP 146/91; PULSE 97
== END 2022-10-31 09:28 | disposition home or self-care (01) ==
LOC: CDL 09:28
PROVIDERS: PCP Family Medicine; Visit Provider Internal Medicine
DX: R07.9 Chest pain, unspecified (principal); I25.10 Atherosclerotic heart disease of native coronary artery without angina pectoris; R06.02 Shortness of breath
CPT/HCPCS: 36415; 78452; 93017; 96374; A9500; J2785

== ENCOUNTER → 2022-11-02 15:15 | Outpatient (BNVA) | payer OTHER, SELFPAY | PROVIDERS: PCP Family Medicine; Visit Provider Podiatrist Foot & Ankle Surgery | DX: I73.9 Peripheral vascular disease, unspecified (principal); E11.42 Type 2 diabetes mellitus with diabetic polyneuropathy; L60.3 Nail dystrophy; L84 Corns and callosities; M21.41 Flat foot [pes planus] (acquired), right foot; M21.42 Flat foot [pes planus] (acquired), left foot; L30.1 Dyshidrosis [pompholyx]; Z79.4 Long term (current) use of insulin; Z79.84 Long term (current) use of oral hypoglycemic drugs | CPT/HCPCS: 11055; 11721; 99214 ==

== ENCOUNTER 2022-11-25 09:54 | Oncology outpatient (recurring) (ONCR) | payer OTHER, SELFPAY ==
[2022-11-25 09:59] VITALS: BP 126/63; PULSE 101; RESP 18; TEMP 36.6; O2SAT 96
[2022-11-25 10:33] LABS: Basophils # 0.1 10^3/uL (0.0-0.1); Basophils % 0.6 %; Eosinophils # 0.8 10^3/uL (0.0-0.8); Eosinophils % 8.3 %; Lymphocytes # 1.8 10^3/uL (0.8-4.8); Lymphocytes % 18.6 %; Mean Corpuscular HGB Conc 32.6 g/dL (30.0-36.0); Mean Corpuscular Hemoglobin 30.2 pg (28.0-34.0); Mean Corpuscular Volume 92.9 fl (80-94); Mean Platelet Volume 9.1 fL (7.4-10.4); Monocytes # 0.7 10^3/uL (0.2-0.9); Neutrophils # 6.18 10^3/uL (1.8-7.7); Neutrophils % 65.1 %; Nucleated Red Blood Cells % 0 %; Platelet Count 242 10^3/cmm (130-400); Red Blood Count 4.63 10^6/uL (4.1-5.3); Red Cell Distribution Width 14.8 % (12.1-15.1); White Blood Count 9.5 10^3/uL (4.0-10.0)
[2022-11-25 10:51] LABS: Alanine Aminotransferase 17 U/L (0-41); Albumin Level 3.9 g/dL (3.5-5.2); Alkaline Phosphatase 74 U/L (40-130); Anion Gap 14.5 (5-19); Aspartate Amino Transferase 16 U/L (0-40); Blood Urea Nitrogen 16 mg/dL (8-23); Calcium 8.9 mg/dL (8.5-10.5); Carbon Dioxide 25 mmol/L (22-29); Chloride 103 mmol/L (98-107); Globulin 2.8 g/dL (1.3-4.6); Glucose 238 mg/dL (65-115); Osmolality Calculated 295 mOsm/kg (285-295); Potassium 4.5 mmol/L (3.5-5.1); Sodium 138 mmol/L (136-145); Total Bilirubin 0.5 mg/dL (0.15-1.2); Total Protein 6.7 g/dL (6.6-8.7)
== END 2022-12-12 23:59 | disposition home or self-care (01) ==
LOC: ONCMED 09:55
PROVIDERS: PCP Family Medicine; Visit Provider Internal Medicine Hematology & Oncology
DX: C34.11 Malignant neoplasm of upper lobe, right bronchus or lung (principal)
CPT/HCPCS: 36591; 80053; 85025; J1642

== ENCOUNTER 2022-12-07 06:09 | Outpatient (CLI) | payer OTHER, SELFPAY ==
--- NOTE | 2022-12-07 06:30 | CTR_ITS ---
PROCEDURE INFORMATION: Exam: CT Chest With Contrast; Diagnostic Exam date and time: 12/07/2022 6:38 AM Age: 77 years old Clinical indication: Condition or disease; Lung condition and disease; Cancer of the lung; Bilateral; Unspecified; Primary cancer: Lung, bladder; Follow-up oncological assessment; Prior surgery; Surgery date: 6+ months; Surgery type: Heart stents, port; Additional info: Follow up, completed yeimy TECHNIQUE: Imaging protocol: Diagnostic computed tomography of the chest with contrast. Radiation optimization: All CT scans at this facility use at least one of these dose optimization techniques: automated exposure control; mA and/or kV adjustment per patient size (includes targeted exams where dose is matched to clinical indication); or iterative reconstruction. Contrast material: OMNI 350; Contrast volume: 95 ml; Contrast route: INTRAVENOUS (IV); REPORTING DATA: Count of CT and Cardiac NM exams in prior 12 months: This patient has received 3 known CTs and 0 known cardiac nuclear medicine studies in the 12 months prior to the current study. COMPARISON: CT chest w con* [id number] 07/21/2022 1:52 PM RADIATION DOSE METRICS: Total DLP (mGy-cm): 381.72 FINDINGS: Tubes, catheters and devices: Left-sided Port-A-Cath. Lungs: Right upper lobe to right hilar dense airspace opacifications with bronchiectasis, similar to prior exam, suggestive of posttreatment changes. Emphysematous changes. Pleural spaces: Unremarkable. No pneumothorax. No pleural effusion. Heart: Unremarkable. No cardiomegaly. No pericardial effusion. Coronary arteries: Coronary artery atherosclerotic calcifications. Mediastinal space: Esophageal wall thickening, similar to prior exam, may reflect post treatment changes, please correlate for esophagitis. Lymph nodes: Unremarkable. No enlarged lymph nodes. Vasculature: Unremarkable. No aortic aneurysm. Liver: Hepatic steatosis. Bones/joints: Unremarkable. No acute fracture. Soft tissues: Unremarkable. CT/CT chest w con* [id number] IMPRESSION: 1. Right upper lobe to right hilar dense airspace opacifications with bronchiectasis, similar to prior exam, suggestive of posttreatment changes. 2. Left-sided Port-A-Cath. 3. Coronary artery atherosclerotic calcifications. 4. Esophageal wall thickening, similar to prior exam, may reflect post treatment changes, please correlate for esophagitis. 5. Hepatic steatosis. 6. Emphysematous changes.
[2022-12-07] MEDS: iohexol 350 mg/mL 500 mL Btl (per mL) IV (06:47)
== END 2022-12-07 06:10 | disposition home or self-care (01) ==
PROVIDERS: PCP Family Medicine; Visit Provider Internal Medicine Hematology & Oncology
DX: C34.11 Malignant neoplasm of upper lobe, right bronchus or lung (principal)
CPT/HCPCS: 71260; Q9967

== ENCOUNTER → 2022-12-21 14:14 | Outpatient (BNVA) | payer OTHER, SELFPAY | PROVIDERS: PCP Family Medicine; Visit Provider Internal Medicine | DX: E11.42 Type 2 diabetes mellitus with diabetic polyneuropathy (principal); Z79.4 Long term (current) use of insulin; E78.5 Hyperlipidemia, unspecified; E03.9 Hypothyroidism, unspecified; I73.9 Peripheral vascular disease, unspecified; E11.59 Type 2 diabetes mellitus with other circulatory complications; Z79.890 Hormone replacement therapy; Z79.84 Long term (current) use of oral hypoglycemic drugs | CPT/HCPCS: 99214 ==

== ENCOUNTER 2022-12-26 13:00 | Oncology outpatient (recurring) (ONCR) | payer OTHER, SELFPAY ==
[2022-12-26 10:46] VITALS: BP 135/76; PULSE 97; RESP 18; TEMP 36.4; O2SAT 93
== END 2023-01-12 23:59 | disposition home or self-care (01) ==
PROVIDERS: PCP Family Medicine; Visit Provider Internal Medicine Medical Oncology
DX: Z45.2 Encounter for adjustment and management of vascular access device (principal)
CPT/HCPCS: 96523; 99214; J1642

== ENCOUNTER 2023-01-26 12:52 | Oncology outpatient (recurring) (ONCR) | payer OTHER, SELFPAY ==
[2023-01-26 13:24] VITALS: BP 166/77; PULSE 96; RESP 18; TEMP 36.7; O2SAT 100
== END 2023-02-11 23:59 | disposition home or self-care (01) ==
LOC: ONCMED 12:53
PROVIDERS: PCP Family Medicine; Visit Provider Internal Medicine Medical Oncology
DX: Z45.2 Encounter for adjustment and management of vascular access device (principal)
CPT/HCPCS: 96523; J1642

== ENCOUNTER → 2023-02-06 14:07 | Outpatient (BNVA) | payer OTHER, SELFPAY | PROVIDERS: PCP Family Medicine; Visit Provider Internal Medicine Pulmonary Disease | DX: J43.9 Emphysema, unspecified (principal); C34.11 Malignant neoplasm of upper lobe, right bronchus or lung; Z87.891 Personal history of nicotine dependence | CPT/HCPCS: 99214 ==

== ENCOUNTER → 2023-02-08 14:42 | Outpatient (BNVA) | payer OTHER, SELFPAY | PROVIDERS: PCP Family Medicine; Visit Provider Podiatrist Foot & Ankle Surgery | DX: I73.9 Peripheral vascular disease, unspecified (principal); E11.42 Type 2 diabetes mellitus with diabetic polyneuropathy; L60.3 Nail dystrophy; L84 Corns and callosities; M21.41 Flat foot [pes planus] (acquired), right foot; M21.42 Flat foot [pes planus] (acquired), left foot; L30.1 Dyshidrosis [pompholyx]; Z79.84 Long term (current) use of oral hypoglycemic drugs; Z79.4 Long term (current) use of insulin | CPT/HCPCS: 11055; 11721 ==

== ENCOUNTER 2023-02-27 12:45 | Oncology outpatient (recurring) (ONCR) | payer OTHER, SELFPAY ==
[2023-02-21 13:28] VITALS: BP 103/67; PULSE 97; RESP 18; TEMP 36.4; O2SAT 96
== END 2023-03-14 23:59 | disposition home or self-care (01) ==
PROVIDERS: PCP Family Medicine; Visit Provider Internal Medicine Medical Oncology
DX: Z53.9 Procedure and treatment not carried out, unspecified reason (principal)
CPT/HCPCS: 96523; J1642

== ENCOUNTER → 2023-03-01 08:54 | Outpatient (BNVA) | payer OTHER, SELFPAY | PROVIDERS: PCP Family Medicine; Visit Provider Internal Medicine | DX: E11.42 Type 2 diabetes mellitus with diabetic polyneuropathy (principal); Z79.4 Long term (current) use of insulin; E78.5 Hyperlipidemia, unspecified; E03.9 Hypothyroidism, unspecified; I73.9 Peripheral vascular disease, unspecified; E11.59 Type 2 diabetes mellitus with other circulatory complications; I25.10 Atherosclerotic heart disease of native coronary artery without angina pectoris; Z79.84 Long term (current) use of oral hypoglycemic drugs; Z79.890 Hormone replacement therapy | CPT/HCPCS: 99214 ==

== ENCOUNTER → 2023-03-16 12:24 | Outpatient (BNVA) | payer OTHER, SELFPAY | PROVIDERS: PCP Family Medicine; Visit Provider Internal Medicine | DX: I77.0 Arteriovenous fistula, acquired (principal); R60.0 Localized edema; I77.9 Disorder of arteries and arterioles, unspecified; E11.42 Type 2 diabetes mellitus with diabetic polyneuropathy; C34.90 Malignant neoplasm of unspecified part of unspecified bronchus or lung; R07.9 Chest pain, unspecified; Z79.4 Long term (current) use of insulin; Z87.891 Personal history of nicotine dependence | CPT/HCPCS: 99214 ==

== ENCOUNTER 2023-03-30 13:36 | Oncology outpatient (recurring) (ONCR) | payer OTHER, SELFPAY ==
[2023-03-30 14:00] VITALS: BP 109/65; PULSE 88; RESP 17; TEMP 37.1; O2SAT 97
== END 2023-04-13 23:59 | disposition home or self-care (01) ==
PROVIDERS: PCP Family Medicine; Visit Provider Internal Medicine Medical Oncology
DX: Z45.2 Encounter for adjustment and management of vascular access device
CPT/HCPCS: 96523; J1642

== ENCOUNTER 2023-04-27 14:24 | Oncology outpatient (recurring) (ONCR) | payer OTHER, SELFPAY | END 2023-05-14 23:59 | disposition home or self-care (01) | LOC: ONCMED 14:24 | PROVIDERS: PCP Family Medicine; Visit Provider Internal Medicine Medical Oncology | DX: Z45.2 Encounter for adjustment and management of vascular access device (principal); Z95.828 Presence of other vascular implants and grafts | CPT/HCPCS: J1642 ==

== ENCOUNTER → 2023-05-17 11:28 | Outpatient (BNVA) | payer OTHER, SELFPAY | PROVIDERS: PCP Family Medicine; Visit Provider Podiatrist Foot & Ankle Surgery | DX: E11.8 Type 2 diabetes mellitus with unspecified complications (principal); I73.9 Peripheral vascular disease, unspecified; E11.42 Type 2 diabetes mellitus with diabetic polyneuropathy; L60.3 Nail dystrophy; L84 Corns and callosities; M21.41 Flat foot [pes planus] (acquired), right foot; M21.42 Flat foot [pes planus] (acquired), left foot; L30.1 Dyshidrosis [pompholyx]; Z79.4 Long term (current) use of insulin; Z79.84 Long term (current) use of oral hypoglycemic drugs | CPT/HCPCS: 11055; 11721 ==

== ENCOUNTER 2023-05-25 14:28 | Oncology outpatient (recurring) (ONCR) | payer OTHER, SELFPAY ==
[2023-05-25 14:55] VITALS: BP 119/66; PULSE 89; RESP 16; TEMP 36.8; O2SAT 98
[2023-05-25 15:25] LABS: Alanine Aminotransferase 23 U/L (0-41); Albumin Level 3.8 g/dL (3.5-5.2); Alkaline Phosphatase 70 U/L (40-130); Aspartate Amino Transferase 19 U/L (0-40); Blood Urea Nitrogen 18 mg/dL (8-23); Calcium 9.4 mg/dL (8.5-10.5); Carbon Dioxide 28 mmol/L (22-29); Chloride 100 mmol/L (98-107); Chol HDL Ratio 2.53 mg/dL (1.0-5.00); Cholesterol 114 mg/dL (0-200); Globulin 2.8 g/dL (1.3-4.6); Glucose 149 mg/dL (65-115); HDL Cholesterol 45 mg/dL (60-100); LDL Cholesterol Calculated 31 mg/dL (50-129); LDL HDL Ratio 0.69 RATIO (0.00-3.22); Osmolality Calculated 289 mOsm/kg (285-295); Sodium 137 mmol/L (136-145); Total Bilirubin 0.3 mg/dL (0.15-1.2); Total Protein 6.6 g/dL (6.6-8.7); Triglycerides 189 mg/dL (0-150)
[2023-05-25 15:28] LABS: Anion Gap 13.3 (5-19); Potassium 4.3 mmol/L (3.5-5.1)
[2023-05-25 15:31] LABS: Creatinine Urine, Random 69 mg/dL (39-259); Microalbum Creatinine Ratio Ur 14 mg/dL (0-20); Microalbumin Random Urine 1 ug/dL (0-20)
[2023-05-25 15:32] LABS: Estmated Average Glucose 180; Hemoglobin A1C 7.9 % (4.0-6.0)
== END 2023-06-14 23:59 | disposition home or self-care (01) ==
LOC: ONCMED 14:31
PROVIDERS: Internal Medicine; PCP Family Medicine; Visit Provider Internal Medicine Medical Oncology
DX: E11.42 Type 2 diabetes mellitus with diabetic polyneuropathy
CPT/HCPCS: 36591; 80053; 80061; 82044; 83036; J1642

== ENCOUNTER → 2023-05-30 09:25 | Outpatient (BNVA) | payer OTHER, SELFPAY | PROVIDERS: PCP Family Medicine; Visit Provider Internal Medicine | DX: E11.42 Type 2 diabetes mellitus with diabetic polyneuropathy (principal); Z79.4 Long term (current) use of insulin; E78.5 Hyperlipidemia, unspecified; E03.9 Hypothyroidism, unspecified; I73.9 Peripheral vascular disease, unspecified; Z79.890 Hormone replacement therapy; Z79.84 Long term (current) use of oral hypoglycemic drugs | CPT/HCPCS: 99214 ==

== ENCOUNTER → 2023-06-12 14:14 | Outpatient (BNVA) | payer OTHER, SELFPAY | PROVIDERS: PCP Family Medicine; Referring Provider Family Medicine; Visit Provider Internal Medicine | DX: I77.0 Arteriovenous fistula, acquired (principal); R60.0 Localized edema; I77.9 Disorder of arteries and arterioles, unspecified; E11.42 Type 2 diabetes mellitus with diabetic polyneuropathy; Z79.4 Long term (current) use of insulin; C34.90 Malignant neoplasm of unspecified part of unspecified bronchus or lung; R07.9 Chest pain, unspecified; Z87.891 Personal history of nicotine dependence | CPT/HCPCS: 99214 ==

== ENCOUNTER 2023-06-19 14:39 | Outpatient (CLI) | payer OTHER, SELFPAY ==
--- NOTE | 2023-06-19 14:46 | CTR_ITS ---
PROCEDURE INFORMATION: Exam: CT Chest With Contrast; Diagnostic Exam date and time: 06/19/2023 3:04 PM Age: 77 years old Clinical indication: Condition or disease; Lung condition and disease; Cancer of the lung; Bilateral; Unspecified; Primary cancer: Lung, bladder; Follow-up oncological assessment; Additional info: Surveilance h/o nsclc TECHNIQUE: Imaging protocol: Diagnostic computed tomography of the chest with contrast. Radiation optimization: All CT scans at this facility use at least one of these dose optimization techniques: automated exposure control; mA and/or kV adjustment per patient size (includes targeted exams where dose is matched to clinical indication); or iterative reconstruction. 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 The appearance is unchanged from before. There is no measurable mass. Pleural spaces: Unremarkable. No pneumothorax. No pleural effusion. Heart: Unremarkable. No cardiomegaly. No pericardial effusion. Coronary arteries: Coronary artery calcifications. Lymph nodes: Unremarkable. No enlarged lymph nodes. Vasculature: Unremarkable. No aortic aneurysm. Bones/joints: Unremarkable. No acute fracture. Soft tissues: Unremarkable. CT/CT chest w con* [id number] IMPRESSION: 1. No significant change. 2. Post treatment changes on the right.
[2023-06-19] MEDS: iohexol 350 mg/mL 500 mL Btl (per mL) IV (15:26)
== END 2023-06-19 14:40 | disposition home or self-care (01) ==
PROVIDERS: PCP Family Medicine; Visit Provider Internal Medicine Medical Oncology
DX: C34.11 Malignant neoplasm of upper lobe, right bronchus or lung (principal); J70.1 Chronic and other pulmonary manifestations due to radiation; Z92.3 Personal history of irradiation
CPT/HCPCS: 71260; Q9967

== ENCOUNTER 2023-06-20 11:00 | Oncology outpatient (recurring) (ONCR) | payer OTHER, SELFPAY ==
[2023-06-19 15:22] LABS: Basophils # 0.1 10^3/uL (0.0-0.1); Basophils % 0.9 %; Eosinophils # 0.8 10^3/uL (0.0-0.8); Eosinophils % 9.6 %; Hematocrit 41.7 % (37-53); Lymphocytes # 1.6 10^3/uL (0.8-4.8); Lymphocytes % 20.3 %; Mean Corpuscular HGB Conc 33.1 g/dL (30-55); Mean Corpuscular Hemoglobin 30.7 pg (27-33); Mean Corpuscular Volume 92.7 fl (82-101); Mean Platelet Volume 8.9 fL (7.4-10.4); Monocytes # 0.7 10^3/uL (0.2-0.9); Monocytes % 8.4 %; Neutrophils # 4.78 10^3/uL (1.8-7.7); Neutrophils % 60.5 %; Nucleated Red Blood Cells % 0 %; Platelet Count 242 10^3/cmm (157-399); Red Cell Distribution Width 14.9 % (12.1-15.1); White Blood Count 7.89 10^3/uL (3.29-11.43)
[2023-06-19 15:43] LABS: Alanine Aminotransferase 22 U/L (0-41); Alkaline Phosphatase 77 U/L (40-130); Anion Gap 17.1 (5-19); Aspartate Amino Transferase 19 U/L (0-40); Blood Urea Nitrogen 15 mg/dL (8-23); Calcium 9.5 mg/dL (8.5-10.5); Carbon Dioxide 27 mmol/L (22-29); Chloride 100 mmol/L (98-107); Globulin 3.1 g/dL (1.3-4.6); Glucose 212 mg/dL (65-115); Osmolality Calculated 297 mOsm/kg (285-295); Potassium 4.1 mmol/L (3.5-5.1); Sodium 140 mmol/L (136-145); Total Bilirubin 0.4 mg/dL (0.15-1.2); Total Protein 7.1 g/dL (6.6-8.7)
== END 2023-07-13 23:59 | disposition home or self-care (01) ==
PROVIDERS: Internal Medicine Medical Oncology; PCP Family Medicine; Visit Provider Internal Medicine Medical Oncology
DX: C34.11 Malignant neoplasm of upper lobe, right bronchus or lung (principal); Z92.21 Personal history of antineoplastic chemotherapy; Z92.3 Personal history of irradiation; Z95.828 Presence of other vascular implants and grafts; R04.2 Hemoptysis; Z87.891 Personal history of nicotine dependence; Z53.9 Procedure and treatment not carried out, unspecified reason
CPT/HCPCS: 36591; 80053; 85025; 99214; J1642

== ENCOUNTER 2023-06-29 11:53 | Outpatient (CLI) | payer OTHER, SELFPAY ==
--- NOTE | 2023-06-29 12:15 | USR_ITS ---
PROCEDURE INFORMATION: Exam: US Duplex Bilateral Lower Extremity Arteries Exam date and time: 06/29/2023 12:33 PM Age: 77 years old Clinical indication: Pain; Leg, lower; Bilateral; Prior surgery; Surgery date: 6+ months; Surgery type: Right stent in popliteal area; Additional info: Bilateral leg pain TECHNIQUE: Imaging protocol: Real-time ultrasound scan of the arteries of the bilateral lower extremities with 2-D celis scale, color Doppler flow and spectral waveform analysis. Images documented and saved. COMPARISON: CT abdomen pelvis w con* [id number] 11/26/2019 1:37 PM FINDINGS: Right external iliac artery: Right iliac arteries: No occlusion or significant stenosis. Normal waveform. Peak systolic velocity is 72 cm/s. Right common femoral artery: No occlusion or significant stenosis. Normal waveform. Peak systolic velocity is 92 cm/s. Right superficial femoral artery: No occlusion or significant stenosis. Normal waveform. Peak systolic velocity is 117 cm/s. Right popliteal artery: No occlusion or significant stenosis. Normal waveform. Peak systolic velocity is 69 cm/s. Patent stent. Right calf/foot arteries: Occluded right posterior tibial artery. Proximal occlusion of the right anterior tibial artery with reconstitution of the right dorsalis pedis artery which has a monophasic waveform. Left external iliac artery: Left iliac arteries: No occlusion or significant stenosis. Normal waveform. Peak systolic velocity 68 cm/s. Left common femoral artery: No occlusion or significant stenosis. Normal waveform. Peak systolic velocity is 54 cm/s. Left superficial femoral artery: The waveform becomes progressively monophasic indicating at least 50-69% diameter stenoses involving the proximal and mid left superficial femoral artery. Peak systolic velocity is 54 cm/s. Left popliteal artery: Monophasic waveform. Probable 50-69% diameter stenoses. Peak systolic velocity is 46 cm/s. Left calf/foot arteries: Occluded left posterior tibial artery. Occlusion of the proximal left anterior tibial artery with reconstitution of the left dorsalis pedis artery with a monophasic waveform. US/[place] [id number] IMPRESSION: 1. Occluded right posterior tibial artery. 2. Proximal occlusion right anterior tibial artery with reconstitution of the right dorsalis pedis artery. 3. 50-69% diameter stenoses in the proximal and mid left superficial femoral artery. 4. 50-69% diameter stenosis left popliteal artery. 5. Occluded left posterior tibial artery. 6. Occlusion of the proximal left anterior tibial artery with reconstitution of the left dorsalis pedis artery.
== END 2023-06-29 11:54 | disposition home or self-care (01) ==
LOC: RAD 11:53
PROVIDERS: PCP Family Medicine; Visit Provider Internal Medicine
DX: M79.604 Pain in right leg (principal); I70.202 Unspecified atherosclerosis of native arteries of extremities, left leg; I77.9 Disorder of arteries and arterioles, unspecified; Z95.820 Peripheral vascular angioplasty status with implants and grafts
CPT/HCPCS: 93925

== ENCOUNTER 2023-07-18 11:10 | Oncology outpatient (recurring) (ONCR) | payer OTHER, SELFPAY | END 2023-08-13 23:59 | disposition home or self-care (01) | LOC: ONCMED 11:10 | PROVIDERS: PCP Family Medicine; Visit Provider Internal Medicine Medical Oncology | DX: C34.11 Malignant neoplasm of upper lobe, right bronchus or lung (principal); Z92.21 Personal history of antineoplastic chemotherapy; Z92.3 Personal history of irradiation; Z95.828 Presence of other vascular implants and grafts; R04.2 Hemoptysis; Z87.891 Personal history of nicotine dependence; Z53.9 Procedure and treatment not carried out, unspecified reason; C34.90 Malignant neoplasm of unspecified part of unspecified bronchus or lung; I73.9 Peripheral vascular disease, unspecified; L60.3 Nail dystrophy; L84 Corns and callosities; E11.8 Type 2 diabetes mellitus with unspecified complications; E11.42 Type 2 diabetes mellitus with diabetic polyneuropathy; M21.41 Flat foot [pes planus] (acquired), right foot; M21.42 Flat foot [pes planus] (acquired), left foot; Z79.84 Long term (current) use of oral hypoglycemic drugs; Z79.4 Long term (current) use of insulin; Z45.2 Encounter for adjustment and management of vascular access device | CPT/HCPCS: 11055; 11721; 96523; J1642 ==

== ENCOUNTER 2023-07-25 11:40 | Outpatient (CLI) | payer OTHER, SELFPAY ==
--- NOTE | 2023-07-25 12:00 | PETR_ITS ---
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 Then, PET images were obtained. Attenuation corrected images were constructed using the CT scan. Fused images of PET and CT were reviewed. The standardized uptake values (SUV) reported below are maximum values within a region of interest, expressed in gm/ml. Exam includes orbital meatal line to mid-thigh. Radiopharmaceutical: 12.14 mCi F-18 FDG (Fluorodeoxyglucose), IV. Time of imaging post radiopharmaceutical administration: 1 hour Injection site: Left hand COMPARISON: CT chest 06/19/2023, CT chest 12/07/2022, PT PET Scan 04/17/2021 2:56 PM FINDINGS: Tubes, catheters and devices: A left subclavian central venous port catheter terminates in the SVC. Brain: Visualized brain has normal physiologic uptake. Pharynx: No abnormal uptake. Larynx: No abnormal uptake. Lungs, pleura and trachea: An ovoid region of morphologically similar patchy consolidation along the superomedial aspect of the right upper lobe extending to the right perihilar region is noted with low-level uptake, SUV max 2.8 (previously 3.1) measuring up to 4.5 x 2.9 cm in the axial plane on series 3, image 67. Adjacent bandlike regions of streaky linear density extending to the pleural surface in the superior posterior aspect of the right lung. A calcified granuloma in the right lower lobe is noted. Heart: Normal physiologic uptake. Mediastinal space: No abnormal uptake. Liver: No abnormal uptake. Calcified granulomas in the liver are noted. Gallbladder and bile ducts: No abnormal uptake. Pancreas: No abnormal uptake. Spleen: No abnormal uptake. Adrenal glands: No abnormal uptake. Kidneys and ureters: Normal physiologic uptake. Stomach and bowel: Uptake within the stomach and bowel appears physiologic in nature. Reproductive: There is moderate prominence of the prostate gland without evidence of focal abnormal uptake. Vasculature: No abnormal uptake. There are diffuse atherosclerotic changes including extensive appearing coronary arterial atherosclerotic calcification. Lymph nodes: No abnormal uptake. No lymphadenopathy in the head, neck, chest, abdomen, pelvis, and extremities. Bones/joints: No abnormal uptake in the visualized axial and appendicular skeleton. Degenerative changes in the spine are present. There is a healed left clavicle fracture. Soft tissues: No abnormal uptake in the visualized head, neck, chest, abdomen, pelvis, and extremities. METRICS: Mediastinal blood pool: SUV max 2.0 [facility] [id number] IMPRESSION: 1. Similar regions of right perihilar consolidation with persistent but slightly decreased mild uptake (SUV max 2.8, previously 3.1), most consistent with post treatment inflammatory changes. Malignancy is less likely. 2. Atherosclerotic changes. 3. Old granulomatous changes. 4. Additional nonurgent findings as detailed above.
== END 2023-07-25 11:41 | disposition home or self-care (01) ==
LOC: RAD 11:40
PROVIDERS: PCP Family Medicine; Visit Provider Internal Medicine
DX: C34.11 Malignant neoplasm of upper lobe, right bronchus or lung (principal); R91.8 Other nonspecific abnormal finding of lung field; I25.10 Atherosclerotic heart disease of native coronary artery without angina pectoris
CPT/HCPCS: 78815; A9552

== ENCOUNTER → 2023-08-04 09:50 | Outpatient (BNVA) | payer OTHER, SELFPAY | PROVIDERS: PCP Family Medicine; Visit Provider Internal Medicine Pulmonary Disease | DX: C34.11 Malignant neoplasm of upper lobe, right bronchus or lung (principal); J43.2 Centrilobular emphysema | CPT/HCPCS: 99214 ==

== ENCOUNTER 2023-08-15 13:41 | Oncology outpatient (recurring) (ONCR) | payer OTHER, SELFPAY | END 2023-09-12 23:59 | disposition home or self-care (01) | LOC: ONCMED 13:42 | PROVIDERS: PCP Family Medicine; Visit Provider Internal Medicine Medical Oncology | DX: Z45.2 Encounter for adjustment and management of vascular access device | CPT/HCPCS: 96523; J1642 ==

== ENCOUNTER 2023-08-24 11:49 | Outpatient (CLI) | payer OTHER, SELFPAY ==
[2023-08-24 12:30] LABS: Alanine Aminotransferase 22 U/L (0-41); Alkaline Phosphatase 71 U/L (40-130); Aspartate Amino Transferase 19 U/L (0-40); Blood Urea Nitrogen 16 mg/dL (8-23); Calcium 9.6 mg/dL (8.5-10.5); Carbon Dioxide 26 mmol/L (22-29); Chloride 104 mmol/L (98-107); Chol HDL Ratio 2.49 mg/dL (1.0-5.00); Cholesterol 117 mg/dL (0-200); Globulin 2.9 g/dL (1.3-4.6); Glucose 136 mg/dL (65-115); HDL Cholesterol 47 mg/dL (60-100); LDL Cholesterol Calculated 46 mg/dL (50-129); LDL HDL Ratio 0.98 RATIO (0.00-3.22); Osmolality Calculated 293 mOsm/kg (285-295); Sodium 140 mmol/L (136-145); Total Bilirubin 0.3 mg/dL (0.15-1.2); Total Protein 6.9 g/dL (6.6-8.7); Triglycerides 120 mg/dL (0-150)
[2023-08-24 12:31] LABS: Creatinine Urine, Random 53 mg/dL (39-259); Microalbum Creatinine Ratio Ur 19 mg/dL (0-20); Microalbumin Random Urine 1 ug/dL (0-20)
[2023-08-24 12:41] LABS: Anion Gap 14.4 (5-19); Potassium 4.4 mmol/L (3.5-5.1)
[2023-08-24 12:47] LABS: Estmated Average Glucose 171; Hemoglobin A1C 7.6 % (4.0-6.0)
== END 2023-08-24 11:50 | disposition home or self-care (01) ==
LOC: LAB 11:49
PROVIDERS: PCP Family Medicine; Visit Provider Internal Medicine
DX: E11.42 Type 2 diabetes mellitus with diabetic polyneuropathy (principal); Z79.4 Long term (current) use of insulin
CPT/HCPCS: 36415; 80053; 80061; 82044; 83036

== ENCOUNTER → 2023-08-30 09:45 | Outpatient (BNVA) | payer OTHER, SELFPAY | PROVIDERS: PCP Family Medicine; Visit Provider Internal Medicine | DX: E11.42 Type 2 diabetes mellitus with diabetic polyneuropathy (principal); Z79.4 Long term (current) use of insulin; E78.5 Hyperlipidemia, unspecified; E03.9 Hypothyroidism, unspecified; I73.9 Peripheral vascular disease, unspecified; Z79.84 Long term (current) use of oral hypoglycemic drugs; Z79.890 Hormone replacement therapy | CPT/HCPCS: 99214 ==

== ENCOUNTER 2023-09-07 10:11 | Outpatient (CLI) | payer OTHER, SELFPAY ==
--- NOTE | 2023-09-07 10:15 | XRR_ITS ---
PROCEDURE INFORMATION: Exam: XR Chest Exam date and time: 09/07/2023 10:19 AM Age: 77 years old Clinical indication: Cough; Prior surgery; Surgery date: 6+ months; Surgery type: Port placement; Patient HX: HX of lung and prostate cancer; Additional info: Productive cough TECHNIQUE: Imaging protocol: Radiologic exam of the chest. Views: 2 views. COMPARISON: CT chest w con* [id number] 06/19/2023 3:04 PM FINDINGS: Tubes, catheters and devices: Chest port via the left subclavian approach with the tip projecting over the superior vena cava. Lungs: Dense right hilum. Soft tissue prominence right upper lobe medially about the right clavicle. Emphysema. Lungs are well aerated without a focal area of consolidation. Pleural spaces: Unremarkable. No pleural effusion. No pneumothorax. Heart/Mediastinum: Unremarkable. No cardiomegaly. Bones/joints: See Lungs finding. XR/XR chest 2V* [id number] IMPRESSION: 1. Dense right hilum. Soft tissue prominence right upper lobe medially about the right clavicle. 2. Lungs are well aerated without a focal area of consolidation.
== END 2023-09-07 10:12 | disposition home or self-care (01) ==
LOC: RAD 10:12
PROVIDERS: PCP Family Medicine; Visit Provider Internal Medicine Pulmonary Disease
DX: R04.2 Hemoptysis (principal); R05.8 Other specified cough; J98.4 Other disorders of lung; Z85.118 Personal history of other malignant neoplasm of bronchus and lung; Z85.46 Personal history of malignant neoplasm of prostate; Z95.9 Presence of cardiac and vascular implant and graft, unspecified
CPT/HCPCS: 71046

== ENCOUNTER → 2023-09-14 12:52 | Outpatient (BNVA) | payer OTHER, SELFPAY | PROVIDERS: PCP Family Medicine; Visit Provider Internal Medicine | DX: I77.0 Arteriovenous fistula, acquired (principal); R60.0 Localized edema; I77.9 Disorder of arteries and arterioles, unspecified; E11.42 Type 2 diabetes mellitus with diabetic polyneuropathy; Z79.4 Long term (current) use of insulin; C34.90 Malignant neoplasm of unspecified part of unspecified bronchus or lung; R07.9 Chest pain, unspecified; Z87.891 Personal history of nicotine dependence | CPT/HCPCS: 99214 ==

== ENCOUNTER 2023-09-21 12:17 | Oncology outpatient (recurring) (ONCR) | payer OTHER, SELFPAY ==
[2023-09-21 12:57] LABS: Basophils # 0.1 10^3/uL (0.0-0.1); Basophils % 0.9 %; Eosinophils # 1.3 10^3/uL (0.0-0.8); Eosinophils % 14.7 %; Hematocrit 42.1 % (37-53); Lymphocytes % 22.2 %; Mean Corpuscular HGB Conc 32.5 g/dL (30-55); Mean Corpuscular Hemoglobin 30.6 pg (27-33); Mean Corpuscular Volume 94.2 fl (82-101); Mean Platelet Volume 8.9 fL (7.4-10.4); Monocytes # 0.7 10^3/uL (0.2-0.9); Monocytes % 7.4 %; Neutrophils # 4.98 10^3/uL (1.8-7.7); Neutrophils % 54.5 %; Nucleated Red Blood Cells % 0 %; Platelet Count 229 10^3/cmm (157-399); Red Blood Count 4.47 10^6/uL (3.85-5.65); Red Cell Distribution Width 14.1 % (12.1-15.1); White Blood Count 9.14 10^3/uL (3.29-11.43)
[2023-09-21 13:16] LABS: Alanine Aminotransferase 22 U/L (0-41); Albumin Level 3.9 g/dL (3.5-5.2); Alkaline Phosphatase 65 U/L (40-130); Aspartate Amino Transferase 21 U/L (0-40); Blood Urea Nitrogen 14 mg/dL (8-23); Calcium 9.6 mg/dL (8.5-10.5); Carbon Dioxide 26 mmol/L (22-29); Chloride 102 mmol/L (98-107); Globulin 2.7 g/dL (1.3-4.6); Glucose 141 mg/dL (65-115); Osmolality Calculated 291 mOsm/kg (285-295); Sodium 139 mmol/L (136-145); Total Bilirubin 0.3 mg/dL (0.15-1.2); Total Protein 6.6 g/dL (6.6-8.7)
[2023-09-21 13:22] LABS: Anion Gap 15.4 (5-19); Potassium 4.4 mmol/L (3.5-5.1)
== END 2023-10-13 23:59 | disposition home or self-care (01) ==
PROVIDERS: Internal Medicine; Nurse Practitioner Family; PCP Family Medicine; Visit Provider Internal Medicine Medical Oncology
DX: C34.11 Malignant neoplasm of upper lobe, right bronchus or lung (principal); Z95.828 Presence of other vascular implants and grafts; C77.1 Secondary and unspecified malignant neoplasm of intrathoracic lymph nodes; Z92.3 Personal history of irradiation; Z92.21 Personal history of antineoplastic chemotherapy
CPT/HCPCS: 36591; 80053; 85025; 99214

== ENCOUNTER → 2023-10-12 09:22 | Outpatient (BNVA) | payer OTHER, SELFPAY | PROVIDERS: PCP Family Medicine; Visit Provider Internal Medicine Pulmonary Disease | DX: C34.90 Malignant neoplasm of unspecified part of unspecified bronchus or lung (principal); J43.2 Centrilobular emphysema; J22 Unspecified acute lower respiratory infection | CPT/HCPCS: 99214 ==

== ENCOUNTER 2023-10-19 13:23 | Oncology outpatient (recurring) (ONCR) | payer OTHER, SELFPAY | END 2023-11-12 23:59 | disposition home or self-care (01) | PROVIDERS: PCP Family Medicine; Visit Provider Internal Medicine Medical Oncology | DX: Z45.2 Encounter for adjustment and management of vascular access device | CPT/HCPCS: 96523 ==

== ENCOUNTER → 2023-10-24 10:41 | Outpatient (BNVA) | payer OTHER, SELFPAY | PROVIDERS: PCP Family Medicine; Visit Provider Podiatrist Foot & Ankle Surgery | DX: E11.8 Type 2 diabetes mellitus with unspecified complications (principal); I73.9 Peripheral vascular disease, unspecified; E11.42 Type 2 diabetes mellitus with diabetic polyneuropathy; M21.41 Flat foot [pes planus] (acquired), right foot; M21.42 Flat foot [pes planus] (acquired), left foot; Z79.4 Long term (current) use of insulin; Z79.84 Long term (current) use of oral hypoglycemic drugs | CPT/HCPCS: 99213 ==

== ENCOUNTER 2023-11-23 13:48 | Oncology outpatient (recurring) (ONCR) | payer OTHER, SELFPAY ==
[2023-11-23 14:45] LABS: Estmated Average Glucose 174; Hemoglobin A1C 7.7 % (4.0-6.0)
[2023-11-23 14:51] LABS: Creatinine Urine, Random 57 mg/dL (39-259); Microalbum Creatinine Ratio Ur 18 mg/dL (0-20); Microalbumin Random Urine 1 ug/dL (0-20)
[2023-11-23 14:56] LABS: Alanine Aminotransferase 18 U/L (0-41); Albumin Level 4.1 g/dL (3.5-5.2); Alkaline Phosphatase 73 U/L (40-130); Anion Gap 15.1 (5-19); Aspartate Amino Transferase 14 U/L (0-40); Blood Urea Nitrogen 17 mg/dL (8-23); Calcium 9.4 mg/dL (8.5-10.5); Carbon Dioxide 26 mmol/L (22-29); Chloride 104 mmol/L (98-107); Chol HDL Ratio 2.44 mg/dL (1.0-5.00); Cholesterol 110 mg/dL (0-200); Free T4 Free Thyroxine 1.71 ng/dL (0.82-1.77); Globulin 2.6 g/dL (1.3-4.6); Glucose 185 mg/dL (65-115); HDL Cholesterol 45 mg/dL (60-100); LDL Cholesterol Calculated 39 mg/dL (50-129); LDL HDL Ratio 0.87 RATIO (0.00-3.22); Osmolality Calculated 298 mOsm/kg (285-295); Potassium 4.1 mmol/L (3.5-5.1); Sodium 141 mmol/L (136-145); Thyroid Stimulating Hormone 0.88 uIU/mL (0.27-4.20); Total Bilirubin 0.4 mg/dL (0.15-1.2); Total Protein 6.7 g/dL (6.6-8.7); Triglycerides 129 mg/dL (0-150)
== END 2023-12-13 23:59 | disposition home or self-care (01) ==
LOC: ONCMED 13:48
PROVIDERS: Internal Medicine; PCP Family Medicine; Visit Provider Internal Medicine Medical Oncology
DX: E11.42 Type 2 diabetes mellitus with diabetic polyneuropathy (principal); Z79.4 Long term (current) use of insulin; E78.5 Hyperlipidemia, unspecified; E03.9 Hypothyroidism, unspecified
CPT/HCPCS: 36591; 80053; 80061; 82044; 83036; 84439; 84443

== ENCOUNTER → 2023-11-29 10:29 | Outpatient (BNVA) | payer OTHER, SELFPAY | PROVIDERS: PCP Family Medicine; Visit Provider Internal Medicine | DX: E11.42 Type 2 diabetes mellitus with diabetic polyneuropathy (principal); Z79.4 Long term (current) use of insulin; E78.5 Hyperlipidemia, unspecified; E03.9 Hypothyroidism, unspecified; I73.9 Peripheral vascular disease, unspecified; Z79.84 Long term (current) use of oral hypoglycemic drugs; Z79.890 Hormone replacement therapy | CPT/HCPCS: 99214 ==

== ENCOUNTER → 2023-12-11 13:53 | Outpatient (BNVA) | payer OTHER, SELFPAY | PROVIDERS: PCP Family Medicine; Visit Provider Internal Medicine | DX: I77.0 Arteriovenous fistula, acquired (principal); R60.0 Localized edema; I77.9 Disorder of arteries and arterioles, unspecified; E11.42 Type 2 diabetes mellitus with diabetic polyneuropathy; C34.90 Malignant neoplasm of unspecified part of unspecified bronchus or lung; R07.9 Chest pain, unspecified; Z79.4 Long term (current) use of insulin; Z87.891 Personal history of nicotine dependence | CPT/HCPCS: 99214 ==

== ENCOUNTER 2023-12-21 13:46 | Oncology outpatient (recurring) (ONCR) | payer OTHER, SELFPAY | END 2024-01-13 23:59 | disposition home or self-care (01) | LOC: ONCMED 13:47 | PROVIDERS: PCP Family Medicine; Visit Provider Internal Medicine Medical Oncology | DX: Z45.2 Encounter for adjustment and management of vascular access device | CPT/HCPCS: 96523 ==

== ENCOUNTER → 2024-01-10 07:57 | Outpatient (BNVA) | payer OTHER, SELFPAY | PROVIDERS: PCP Family Medicine; Visit Provider Internal Medicine Critical Care Medicine | DX: R06.09 Other forms of dyspnea (principal); J43.2 Centrilobular emphysema; C34.11 Malignant neoplasm of upper lobe, right bronchus or lung; K21.9 Gastro-esophageal reflux disease without esophagitis; E66.3 Overweight; Z68.29 Body mass index [BMI] 29.0-29.9, adult; Z71.82 Exercise counseling; Z71.89 Other specified counseling | CPT/HCPCS: 99214 ==

== ENCOUNTER 2024-01-18 14:16 | Oncology outpatient (recurring) (ONCR) | payer OTHER, SELFPAY | END 2024-02-12 23:59 | disposition home or self-care (01) | LOC: ONCMED 14:16 | PROVIDERS: PCP Family Medicine; Visit Provider Internal Medicine Medical Oncology | DX: Z45.2 Encounter for adjustment and management of vascular access device (principal) | CPT/HCPCS: 96523 ==

== ENCOUNTER 2024-01-25 08:37 | Outpatient (CLI) | payer OTHER, SELFPAY ==
--- NOTE | 2024-01-25 | ECG_ITS ---
[facility] Test Date: 2024-01-25 Pat Name: Marbin Funez Department: Room: Gender: Male Cottage Parent: : 1945 Requested By: Cornell Hoover Order Number: [id number] Rony MD: NIKKY SANTOS Interpretive Statements NAME OF STUDY: LEXISCAN SESTAMIBI STRESS TEST INDICATION: [CP/SOB, ] NOTE: Please note that this is the electrocardiogram portion of the Lexiscan/Sestamibi stress test. The perfusion scan will be documented separately. DATA: Baseline heart rate was 108 beats per minute. Baseline blood pressure was 179/90 millimeters of mercury. Target heart rate was 120. Maximum heart rate achieved was 114. which was 80% of the predicted target heart rate. Maximum blood pressure was 179/90 millimeters of mercury. The reason for ending the test was completion of the protocol. The patient did not experience any symptoms. ELECTROCARDIOGRAM: BASELINE: Sinus rhythm. Normal axis. Otherwise, nonspecific inferolateral ST-T changes. No arrhythmia noted. EXERCISE: After Lexiscan injection, no ST-T changes suggestive of ischemic noted. No arrhythmia noted. CONCLUSION: Please note due to baseline abnormality of the EKG specificity and sensitivity of the EKG portion of LexiScan MIBI stress test will be low 1. EKG not suggestive of ischemia 2. Lexiscan injection unremarkable. 3. Perfusion scan will be documented separately. Electronically Signed On 01-25-2024 19:22:38 CDT by NIKKY SANTOS [id number]
[2024-01-25 08:52] VITALS: BMI 29.4
--- NOTE | 2024-01-25 08:52 | NMCV_ITS ---
NM amauri perf SPECT r/s* [id number] Dee Dee Marbin Age: 78 Gender: M : 1945 Exam Date: 01/25/2024 08:52 Ordering Phys: Cornell Hoover M.D ([email or web address]) Technologist: BILL Fontaine Exam Location: [facility] Indications: STRESS TEST [facility] IMAGE PROTOCOL Rest/Stress 1 Lexiscan Day Radiopharmaceutical Dose (mCi) Administration Site Administered by Rest: Tc-99m 11 IV BILL Garcia Sestamibi Stress:Tc-99m 32 IV BILL Garcia Sestamibi Rest: 25-Jan-2024 60 Discovery 630 Stress: 25-Jan-2024 30 Discovery 630 0.4mg Lexiscan. Images obtained in supine and prone position. SPECT RESULTS Technical Quality: Good Raw Data Analysis: Normal Image Corrections: No attenuation or motion correction applied Summed Stress Score: 22 Summed Rest Score: 8 Summed Difference Score: 14 PERFUSION FINDINGS FUNCTIONAL RESULTS (calculated via Gated SPECT) Stress Image LV EF (%): 48 Stress EDV (mL):86 TID: 0.81 Stress ESV (mL):45 FUNCTIONAL FINDINGS: Anterior and inferior wall hypokinesis. Moderately depressed mildly reduced left end of ejection fraction estimated ejection fraction 45 to 50%. IMPRESSIONS Medium sized area of fixed perfusion defect was noted in basal to distal inferior wall on both stress and rest images suggestive of old myocardial infarction versus scarring. Medium sized area of fixed perfusion defect noted in basal to distal anterior and anterolateral wall surrounded by moderate area of reversibility suggestive of moderate area of catracho infarct ischemia in LAD territory. This is a abnormal stress test suggestive of old myocardial infarction in inferior and anterior wall however there is moderate ischemia in LAD territory. Vita Ordonez MD (Electronically Signed) Final Date: 25 January 2024 21:07 S
[2024-01-25] MEDS: regadenoson 0.4 Mg/5 ml Syringe IVP (10:00)
[2024-01-25 10:21] VITALS: BP 161/93; PULSE 111
== END 2024-01-25 08:38 | disposition home or self-care (01) ==
LOC: CDL 08:38
PROVIDERS: PCP Family Medicine; Visit Provider Internal Medicine
DX: R07.9 Chest pain, unspecified (principal); R06.02 Shortness of breath; R94.39 Abnormal result of other cardiovascular function study
CPT/HCPCS: 36415; 78452; 93017; 96374; A9500; J2785

== ENCOUNTER 2024-02-15 13:17 | Oncology outpatient (recurring) (ONCR) | payer OTHER, SELFPAY | END 2024-03-14 23:59 | disposition home or self-care (01) | PROVIDERS: PCP Family Medicine; Visit Provider Internal Medicine Medical Oncology | DX: Z45.2 Encounter for adjustment and management of vascular access device (principal) | CPT/HCPCS: 96523 ==

== ENCOUNTER 2024-02-19 07:26 | Outpatient (CLI) | payer OTHER, SELFPAY ==
[2024-02-19] VITALS (7 sets, daily range): BP systolic 119–170; BP diastolic 83–91; PULSE 77–85; RESP 14–21; TEMP 36.6–36.7; O2SAT 91–95; BMI 29.5
--- NOTE | 2024-02-19 07:30 | XACV_ITS ---
Exam Room: [facility] Ht: 178 cm Wt: 93 kg BSA: 2.17 m2 Gender: Male : 1945 Any Known Allergies: No known allergies Exam Priority: Routine Procedure(s): Procedure Description: Diagnostic procedure Procedure Description: PCI procedure Procedure Description: Coronary IVUS Procedure Description: Drug Eluting Coronary Stent Procedure Description: Bare Metal Coronary Stent Procedure Description: Coronary Angiography Procedure Description: Pressure Wire Diagnostic Cath Status: Elective Diagnostic Findings * INDICATION: 78-year-old man with past medical history of coronary artery disease, peripheral artery disease was been having worsening chest pain symptoms. Feels like heartburn. Stress test was done that was abnormal. Plan for coronary angiogram with possible PCI. He understands the risks and benefits and wants to proceed. * Left Main has no significant disease. * Circumflex has ostial 40% stenosis. * Proximal Left Anterior Descending to Mid Left Anterior Descending: obstructive 60% stenosis, SEPIDEH: 3 flow. This is area of abnormal stress test and confirmed to be ischemic with iFR value of 0.71. * Proximal Right Coronary Artery: chronic total occlusion, SEPIDEH: 0 flow. * Mid Left Anterior Descending: moderate 50% stenosis, SEPIDEH: 3 flow. * Coronary angiography shows right dominance. PCI Status: Elective PCI Indication: Other Interventional Findings * Procedure detail: After engaging left main artery with XB 3.0 guide catheter, IV heparin was administered. iFR wire was used to cross the circumflex artery stenosis and an IFR value of 0.96 was obtained. As this was nonsignificant, medical therapy was decided. We then advanced IFR wire into distal LAD and value of 0.71 was obtained. This confirmed significant ischemia in LAD territory. We then proceeded with PCI. Proximal to mid LAD was predilated with 3.5 x 15 mm semicompliant balloon. We then advanced a 4.0 x 26 mm resolute [place] drug-eluting stent. This was postdilated with 4.0 x 18 mm NC balloon. At distal edge of stent there was possible dissection noted. We covered it with 3.5 x 12 mm resolute [place] drug-eluting stent. At this time final angiogram was performed that showed excellent stent expansion and SEPIDEH-3 flow. Guidewire and guide catheter were removed. Patient left the Packaging Line Attendant in a stable condition.. * Proximal Left Anterior Descending to Mid Left Anterior Descendin% stenosis treated with a AB TREK 3.50X15 RX BALLOON, LEVAR R SARAI 4.0X26 MP, and LEVAR HOYOS EUPHORA RX [id number] BALLOON. 0% residual stenosis, SEPIDEH: 3 flow. * Mid Left Anterior Descendin% stenosis treated with a MDChrista R SARAI 3.5X12 MP. 0% residual stenosis, SEPIDEH: 3 flow. Conclusions 1. Severe proximal to mid LAD stenosis status post successful revascularization with 2 stents.. 2. Proximal Left Anterior Descending to Mid Left Anterior Descending was treated with a Balloon, Drug Eluting Stent, and Balloon. 3. Mid Left Anterior Descending was treated with a Drug Eluting Stent. Recommendations * Dual antiplatelet therapy with aspirin and Plavix for least 1 year. * High intensity statin therapy. * Outpatient cardiology follow up in 2 weeks. Interventional RX Recommendation: PCI w/o planned CABG Diagnostic RX Recommendation: other cardiac therapy w/o CABG/PCI Anticoagulation: Heparin Pressures Phase:Rest AO : 134 / 70 ( 95 ) @ 10:03:00 AM 105 / 69 ( 86 ) @ 10:05:00 AM 170 / 81 ( 111 ) @ 10:16:00 AM 139 / 70 ( 99 ) @ 10:21:00 AM 134 / 81 ( 106 ) @ 10:30:00 AM 158 / 91 ( 122 ) @ 10:40:00 AM 136 / 76 ( 107 ) @ 10:50:00 AM Clinical Evaluation EBL: 5mL-10mL Procedural Details Procedure Consent Obtained. Current Diagnosis : Chest Pain. Pre-Procedure Time Out. Identified patient by full name and date of as verbalized by the patient/guarantor. Does the consent match the physician's order: Yes. Accurate & Complete Informed Consent: Yes. Inpatient/Outpatient History & Physical on Chart: Yes. If H&P is completed, is and addenduem needed: No; If yes, is the addendum complete: N/A. Visualize and Verify Site with Patient/Guarantor: N/A. Relevant Radiology Images available: Yes. Pre-op teaching completed and patient verbalized understanding. The risks, benefits, and alternatives of sedation and/or procedure were discussed by physician. The patient agrees to continue. Procedure started. [facility] Clinical Fraility Score: 3: Managing Well. Packaging Line Attendant Indications: Other. Chest Pain Symptom Assessment: Atypical Angina. Correct patient, site and procedure confirmed by cath team. Current diagnosis: Chest Pain. PERRLA. Strong, equal hand sales project administrator bilaterally. Lungs clear x 5 lobes. IV Site on Arrival: 20 gauge in the left anticubital. IV Fluids: 0.9% NaCl at KVO. 0 mL infused prior to lab technician. Pre Procedural Pulses: bilateral dorsalis pedis was 1+. Pre Procedural Pulses: bilateral posterior tibial was Doppled. Pre Procedural Pulses: right radial was 3+. Oxygen started at 2liters/min via nasal canula. right groin was prepped with chloroprep then draped in the usual sterile fashion. right radial was prepped with chloroprep then draped in the usual sterile fashion. Physician arrived. Baseline sample Acquired. HR: 87 BPM. Physician scrubbed in. Immediate Pre-Procedure Time Out. Correct Patient: Yes; Correct Procedure: Yes; Correct Site: Yes; Correct Patient Position: Yes; Correct Supplies: Yes; Dried Flammable Prep: Yes; Blood Products Available: N/A;. Lidocaine 1% infiltrated to the right radial. Arterial access obtained. A 5 salv[place] TIG catheter in over wire. Multiple views taken of left coronary artery. Catheter redirected to the RCA. A view taken of right coronary artery. Catheter removed over the exchange wire. 6 salv[place] XB 3 guide catheter was inserted over the wire. IFR guidewire was advanced through the guide catheter to lesion in the mid Circ. IFR Results: 0.96 IFR wire repositioned to the LAD. LAD IFR Results: 0.71. IFR wire out. Runthrough guidewire was advanced through the guide catheter to lesion in the prox LAD. Wire out. Runthrough guidewire was advanced through the guide catheter to lesion in the prox LAD. Inflation number : 1 A AB TREK 3.50X15 RX BALLOON was prepped and advanced across the Prox LAD , then inflated to 10 SHERITA for 0:11 seconds. Inflation number: 2 The AB TREK 3.50X15 RX BALLOON was reinflated across the Prox LAD, to 10 SHERITA for 0:11 seconds. Balloon out. Results checked. Guideliner inserted OTW. Inflation Number : 3 A MDT R SARAI 4.0X26 MP -Lot Number# _[id number] EXP: 08/29/2024 was prepped and advanced across the Prox LAD. The stent was deployed at 12 SHERITA for 0:23 seconds. Stent balloon out over wire. Guideliner out. Results checked. IVUS catheter inserted and advanced OTW to the LAD. IVUS measurements obtained. IVUS catheter out OTW. Inflation number : 4 A MDT NC EUPHORA RX [id number] BALLOON was prepped and advanced across the Prox LAD , then inflated to 14 SHERITA for 0:14 seconds. Inflation number: 5 The MDT NC EUPHORA RX [id number] BALLOON was reinflated across the Prox LAD, to 16 SHERITA for 0:07 seconds. Inflation number: 6 The MDT NC EUPHORA RX 4.93Q89BO BALLOON was reinflated across the Prox LAD, to 18 SHERITA for 0:10 seconds. Balloon out. Guideliner inserted OTW and advanced to the LAD. Stent inserted to lesion in the mid LAD. Inflation Number : 1 A MDT R SARAI 3.5X12 MP -Lot Number# _[id number] EXP: 09/01/2024 was prepped and advanced across the Mid LAD. The stent was deployed at 12 SHERITA for 0:17 seconds. Stent balloon out over wire. Results checked. Guideliner removed OTW. Wire out. Guide catheter out. Physician scrubbed out. A TR Band was successful obtaining hemostatsis at the Right Radial artery insertion site. Post Procedure: Pulses reassessed and unchanged. PERRLA. Strong, equal hand sales project administrator bilaterally. No VTE prophylaxis required. ACT drawn. Results out of range high seconds. Therapeutic limits - pre-heparin administration 90-150 seconds and monitoring heparin during a vascular procedure >250 seconds. Post-op diagnosis: Stent to LAD. Complications: None. Vital chart was stopped. Estimated blood loss: 5mL-10mL. Responsiveness - Normal response to verbal stimuli; alert and oriented, PERRLA. Airway - Unaffected, no intervention required; spontaneous ventilation. Circulation: W/N/L, pulses unchanged. Nausea/Vomiting: No. Procedure completed. Patient transferred by wheelchair to 1st floor. Access Site Site: Right Radial artery Sheath Size: 6 Fr Hemostasis Method: TR Band Hemostasis Success: Successful Procedure Medications Start: 8:50 AM Stop: 8:50 AM Medication: Versed Amount: 1 mg Route: I.V. Start: 8:50 AM Stop: 8:50 AM Medication: Fentanyl Amount: 50 mcg Route: I.V. Start: 9:01 AM Stop: 9:01 AM Medication: Nitrogylcerin Amount: 200 mcg Route: I.A. Start: 9:02 AM Stop: 9:02 AM Medication: Heparin Amount: 5000 units Route: I.V. Start: 9:11 AM Stop: 9:11 AM Medication: Versed Amount: 1 mg Route: I.V. Start: 9:13 AM Stop: 9:13 AM Medication: Heparin Amount: 3000 units Route: I.V. Start: 9:22 AM Stop: 9:22 AM Medication: Heparin Amount: 1000 units Route: I.V. Start: 9:25 AM Stop: 9:25 AM Medication: Fentanyl Amount: 25 mcg Route: I.V. Start: 9:28 AM Stop: 9:28 AM Medication: Heparin Amount: 1000 units Route: I.V. Start: 9:34 AM Stop: 9:34 AM Medication: Fentanyl Amount: 25 mcg Route: I.V. Start: 9:36 AM Stop: 9:36 AM Medication: Plavix Amount: 600 mg Route: P.O. Start: 9:59 AM Stop: 9:59 AM Medication: Nitrogylcerin Amount: 1 Sprays Route: Colton Blodo, the attending physician, have reviewed and verified all procedure medications. Yes, all medications given per verbal order History/Risk Factors Hypertension: No Dyslipidemia: Yes Peripheral Arterial Disease (PAD): Yes Myocardial Infarction ([place]): No Obesity: No Renal Disease: No Tobacco Use: Former Prior Interventions PCI: No CABG: No Valve Surgery: No Report Signatures Finalized by Cornell Hoover MD on 02/24/2024 05:30 PM
[2024-02-19 07:49] LABS: Basophils # 0.1 10^3/uL (0.0-0.1); Eosinophils # 1.4 10^3/uL (0.0-0.8); Eosinophils % 14.8 %; Hematocrit 44.9 % (37-53); Lymphocytes # 2.1 10^3/uL (0.8-4.8); Lymphocytes % 22.4 %; Mean Corpuscular HGB Conc 32.5 g/dL (30-55); Mean Corpuscular Hemoglobin 30.4 pg (27-33); Mean Corpuscular Volume 93.5 fl (82-101); Mean Platelet Volume 8.6 fL (7.4-10.4); Monocytes # 0.7 10^3/uL (0.2-0.9); Monocytes % 7.9 %; Neutrophils # 4.97 10^3/uL (1.8-7.7); Neutrophils % 53.5 %; Nucleated Red Blood Cells % 0 %; Platelet Count 247 10^3/cmm (157-399); Red Cell Distribution Width 14.4 % (12.1-15.1); White Blood Count 9.31 10^3/uL (3.29-11.43)
[2024-02-19] MEDS: diphenhydrAMINE 50 mg Capsule PO (07:50)
[2024-02-19 08:07] LABS: Anion Gap 14.2 (5-19); Blood Urea Nitrogen 14 mg/dL (8-23); Calcium 9.1 mg/dL (8.5-10.5); Carbon Dioxide 27 mmol/L (22-29); Chloride 99 mmol/L (98-107); Glucose 134 mg/dL (65-115); Osmolality Calculated 284 mOsm/kg (285-295); Potassium 4.2 mmol/L (3.5-5.1); Sodium 136 mmol/L (136-145)
--- NOTE | 2024-02-19 08:54 | W.PM.OPSFHP ---
Same Day Surgery H&P Indication for Procedure/HPI DATE OF PROCEDURE: February 19, 2024 CHIEF COMPLAINT/INDICATIONFOR SURGICAL PROCEDURE: Worsening angina/ abnormal stress test PREOP DIAGNOSIS: Worsening angina/ abnormal stress test PLANNED PROCEDURE: Operation Date: 02/19/24 08:30 Proposed Procedures p Cardiac Catheterization - [facility] w/wo LV & Coros(Left) - Cornell Hoover M.D Possible percutaneous coronary intervention 78-year-old man with past medical history of coronary artery disease, peripheral artery disease was been having worsening chest pain symptoms. Feels like heartburn. Stress test was done that was abnormal. Plan for coronary angiogram with possible PCI. He understands the risks and benefits and wants to proceed. Medications/Allergies* Home Medications Medication Instructions Recorded Confirmed Type aspirin 81 mg tablet,delayed 81 mg PO DAILY@12 09/18/19 02/16/24 History release cholecalciferol (vitamin D3) 25 25 mcg PO DAILY@0730 09/18/19 02/16/24 History mcg (1,000 unit) capsule cetirizine 10 mg tablet 10 mg PO DAILY 10/07/21 02/16/24 History isosorbide mononitrate 60 mg 90 mg PO QAM 10/07/21 02/16/24 History tablet,extended release 24 hr multivitamin 1 tab PO DAILY 10/07/21 02/16/24 History levothyroxine 75 mcg tablet 150 mcg PO DAILY 12/07/21 02/16/24 History metformin 850 mg tablet 850 mg PO BID 12/21/21 02/16/24 History insulin glargine 100 unit/mL (3 34 unit SUBCUT DAILY@22 see 01/14/22 02/16/24 History mL) subcutaneous pen pharmacy comments empagliflozin 25 mg tablet 25 mg PO DAILY 08/04/22 02/16/24 History albuterol 90 mcg/actuation aerosol mcg inhalation 09/15/22 01/10/24 History inhaler cilostazol 50 mg tablet 100 mg PO BID 09/15/22 02/16/24 History polyethylene glycol 3350 17 gram 17 g PO DAILY 10/13/22 02/16/24 History oral powder packet vit C-vit I-lvsyaf-tquycqti-omega cap PO 03/16/23 01/10/24 History 3 100 mg-15 unit-2 mg-100 mg capsule Allergies/Adverse Reactions Allergy/AdvReac Type Severity Reaction Status Date / Time No Known Allergies Allergy Verified 01/10/24 08:24 Current Medications: Generic Name Dose Route Start Last Admin Trade Name Jhoan PRN Reason Stop Dose Admin Sodium Chloride 1,000 mls @ 50 mls/hr 02/19/24 07:30 02/19/24 08:09 Sodium Chloride 0.9% IV 02/20/24 03:29 Not Given .Q20H ONE Pertinent History/Comorbid Conditions* Medical History (Updated 01/17/24 @ 21:36 by Dodie Weaver MD) Atherosclerosis of coronary artery Lung nodule Type 2 diabetes mellitus with diabetic polyneuropathy Bladder cancer PVD (peripheral vascular disease) Surgical History (Updated 04/01/20 @ 09:04 by Stanislav Garcia MD) Port-A-Cath in place (04/01/20) H/O esophagogastroduodenoscopy (04/01/20) History of bronchoscopy History of bladder surgery History of surgical removal of pilonidal cyst H/O colonoscopy H/O heart artery stent Family History (Updated 09/18/19 @ 10:18 by Swetha King LPN) Diabetes CAD (coronary artery disease) Hyperlipidemia Lung disease Cancer Hypertension Denies family history of Clotting disorder Dementia Psychiatric illness Chronic kidney disease (CKD) Suicide Anesthesia complication Bleeding disorder Family history of premature coronary artery disease Stroke Social History Smoking and tobacco/nicotine status: never used tobacco/nicotine Quit status (tobacco/nicotine): has quit using Year quit tobacco: 06-17 PPD x 45 Years Alcohol intake: never Substance/Drug Use: never Lives independently: Yes Household members: spouse Marital status: service: Yes Current occupational status: retired Do you think of yourself as: Straight/Heterosexual Current gender identity: Male Pertinent Exam Findings alert, oriented x 3, clear to auscultation bilaterally and regular rate & rhythm Conscious Sedation Assessment PATIENT ASSESSED PRIOR TO SEDATION, WITH NO CHANGE NOTED: Yes AIRWAY EVAL/ANESTHESIA PLAN: normal airway, ASA III, Local Anesthesia, Risks, benefits & alternatives of sedation and/or procedure discussed and Patient agrees to continue as planned ADDITIONAL INFORMATION: Moderate sedation Recommendations Surgery/Procedure today (Left heart cath with possible percutaneous coronary intervention) Coding Level of Care Code Acute Code for Chg Fwd
[2024-02-19] MEDS: losartan 50 mg Tablet 75 MG PO (10:56)
[2024-02-19] MEDS: sodium chloride 0.9% 1,000 ML 100 ML IV ×2 (10:58→22:09)
--- NOTE | 2024-02-19 11:05 | PC.NURSE ---
Pt came from [facility] with complaints of a heartburn. Pt stated now that his heartburn is gone. we'll hold off on the nitro drip. per dr bañuelos if any pain to start the drip at 5 mcg.
[2024-02-19 12:29] LABS: Glucose Point of Care 110 mg/dL (70-110)
[2024-02-19] MEDS: gabapentin 100 mg Capsule PO ×2 (16:56→22:10)
[2024-02-19] MEDS: acetaminophen 325 mg Tablet 650 MG PO (17:04)
[2024-02-19 17:33] LABS: Glucose Point of Care 132 mg/dL (70-110)
[2024-02-19] MEDS: atorvastatin 40 mg Tablet PO (18:18)
[2024-02-19 21:31] LABS: Glucose Point of Care 150 mg/dL (70-110)
[2024-02-19] MEDS: insulin lispro 100 unit/1 mL SUBCUT (22:10)
[2024-02-20] VITALS: BP 167/79; PULSE 81; RESP 14; TEMP 36.8; O2SAT 90
[2024-02-20 04:00] VITALS: BP 167/79; PULSE 85; RESP 19; TEMP 36.4; O2SAT 92
[2024-02-20 04:33] LABS: Basophils # 0.1 10^3/uL (0.0-0.1); Basophils % 0.8 %; Eosinophils # 1.1 10^3/uL (0.0-0.8); Eosinophils % 11.8 %; Hematocrit 42.5 % (37-53); Lymphocytes # 1.3 10^3/uL (0.8-4.8); Lymphocytes % 13.7 %; Mean Corpuscular HGB Conc 32.5 g/dL (30-55); Mean Corpuscular Hemoglobin 30.6 pg (27-33); Mean Corpuscular Volume 94.2 fl (82-101); Mean Platelet Volume 8.7 fL (7.4-10.4); Monocytes # 0.8 10^3/uL (0.2-0.9); Monocytes % 8.1 %; Neutrophils # 6.22 10^3/uL (1.8-7.7); Neutrophils % 65.3 %; Nucleated Red Blood Cells % 0 %; Platelet Count 234 10^3/cmm (157-399); Red Blood Count 4.51 10^6/uL (3.85-5.65); Red Cell Distribution Width 14.3 % (12.1-15.1); White Blood Count 9.53 10^3/uL (3.29-11.43)
[2024-02-20 04:52] LABS: Anion Gap 13.9 (5-19); Blood Urea Nitrogen 13 mg/dL (8-23); Calcium 8.5 mg/dL (8.5-10.5); Carbon Dioxide 26 mmol/L (22-29); Chloride 103 mmol/L (98-107); Creatinine Clr Calc Pharmacy 85.9676; Glucose 95 mg/dL (65-115); Osmolality Calculated 288 mOsm/kg (285-295); Potassium 3.9 mmol/L (3.5-5.1); Sodium 139 mmol/L (136-145)
[2024-02-20 05:00] VITALS: BP 145/74; PULSE 80; RESP 16; O2SAT 92
[2024-02-20] MEDS: acetaminophen 325 mg Tablet 650 MG PO (05:15)
[2024-02-20] MEDS: isosorbide mononitrate ER 30 mg Tablet 90 MG PO (05:15)
[2024-02-20 06:00] VITALS: PULSE 82
[2024-02-20 06:44] LABS: Glucose Point of Care 110 mg/dL (70-110)
[2024-02-20 07:18] VITALS: BP 124/68; PULSE 83; RESP 13; TEMP 36.3; O2SAT 94
[2024-02-20] MEDS: losartan 50 mg Tablet 75 MG PO (07:37)
[2024-02-20] MEDS: clopidogrel 75 mg Tablet PO (07:38)
[2024-02-20] MEDS: gabapentin 100 mg Capsule PO (07:38)
[2024-02-20] MEDS: levothyroxine 150 mcg Tablet PO (07:38)
--- NOTE | 2024-02-20 08:56 | P.DS_ITS ---
Discharge Providers Date of Admission: 02/19/2024 Date of Discharge: February 20, 2024 Attending Provider at Admission: Cornell Hoover MD Attending Provider at Discharge: Cornell Hoover M.D Primary Care Provider: Shavonne Biswas MD Reason for Visit Reason for Visit: R94.39 Brief History: 78-year-old man with past medical histor y of coronary artery disease, peripheral artery disease was been having worsening chest pain symptoms. Feels like heartburn. Stress test was done that was abnormal. Plan for coronary angiogram with possible PCI. He understands the risks and benefits and wants to proceed. Hospital Course Hospital Course Patient was found to have severe proximal to mid LAD stenosis confirmed with IFR. He underwent successful vascularization with 2 stents. He was observed overnight and was stable. Patient has significant PAD history. He has been having severe claudication symptoms. Given complexity of peripheral artery disease, we will refer to vascular surgery for further management. Physical Exam Narrative: GENERAL: Patient is alert, awake and oriented x3. [] NECK: No jugular vein distension. [] HEENT: No cyanosis. No icterus. No pallor. [] HEART: Regular S1 and S2. No murmur, rub or gallop. [] LUNGS: Clear to auscultate bilaterally. [] CENTRAL NERVOUS SYSTEM: Grossly nonfocal. [] EXTREMITIES: Bilateral 1+ edema. Discharge Data Studies Completed and Pending Pending at discharge Category Date Time Status THERAPEUTIC STRATEGY LEAD request for service Routine Exams 02/19/24 07:30 Taken Laboratory Results WBC 9.53 10^3/uL (3.29-11.43) 02/20/24 04:03 RBC 4.51 10^6/uL (3.85-5.65) 02/20/24 04:03 Hgb 13.80 g/dL (11.27-16.99) 02/20/24 04:03 Hct 42.5 % (37-53) 02/20/24 04:03 MCV 94.2 fl (82-101) 02/20/24 04:03 MCH 30.6 pg (27-33) 02/20/24 04:03 MCHC 32.5 g/dL (30-55) 02/20/24 04:03 RDW 14.3 % (12.1-15.1) 02/20/24 04:03 Plt Count 234 10^3/cmm (157-399) 02/20/24 04:03 MPV 8.7 fL (7.4-10.4) 02/20/24 04:03 Neut % (Auto) 65.3 % 02/20/24 04:03 Lymph % (Auto) 13.7 % 02/20/24 04:03 [place] % (Auto) 8.1 % 02/20/24 04:03 Eos % (Auto) 11.8 % 02/20/24 04:03 Baso % (Auto) 0.8 % 02/20/24 04:03 Neut # (Auto) 6.22 10^3/uL (1.8-7.7) 02/20/24 04:03 Lymph # (Auto) 1.3 10^3/uL (0.8-4.8) 02/20/24 04:03 [place] # (Auto) 0.8 10^3/uL (0.2-0.9) 02/20/24 04:03 Eos # (Auto) 1.1 10^3/uL (0.0-0.8) H 02/20/24 04:03 Baso # (Auto) 0.1 10^3/uL (0.0-0.1) 02/20/24 04:03 Nucleated RBC % (auto) 0 % 02/20/24 04:03 Nucleated RBCs # 0.0 /100WBC 02/20/24 04:03 Sodium 139 mmol/L (136-145) 02/20/24 04:03 Potassium 3.9 mmol/L (3.5-5.1) 02/20/24 04:03 Chloride 103 mmol/L (98-107) 02/20/24 04:03 Carbon Dioxide 26 mmol/L (22-29) 02/20/24 04:03 Anion Gap 13.9 (5-19) 02/20/24 04:03 BUN 13 mg/dL (8-23) 02/20/24 04:03 Creatinine 0.7 mg/dL (0.7-1.2) 02/20/24 04:03 GFR Calculation Not Reportable 02/20/24 04:03 Glucose 95 mg/dL (65-115) 02/20/24 04:03 POC Glucose 110 mg/dL (70-110) 02/20/24 06:33 Calculated Osmolality 288 mOsm/kg (285-295) 02/20/24 04:03 Calcium 8.5 mg/dL (8.5-10.5) 02/20/24 04:03 Vitals Last Vital Signs Temp 97.4 F L 02/20/24 07:18 Pulse 83 02/20/24 07:18 Resp 13 02/20/24 07:18 BP 124/68 02/20/24 07:18 Pulse Ox 94 02/20/24 07:18 O2 Del Method Room Air 02/20/24 07:18 Discharge Plan Discharge Patient Disposition: Home Prescriptions: New clopidogrel 75 mg tablet 75 mg PO DAILY Qty: 30 0RF Continued cholecalciferol (vitamin D3) 25 mcg (1,000 unit) capsule 25 mcg PO DAILY@729 aspirin 81 mg tablet,delayed release (DR/EC) 81 mg PO DAILY@12 (DME) Sole supports Qty: 1 0RF Rx Instructions: As directed insulin glargine 100 unit/mL (3 mL) insulin pen 34 unit SUBCUT DAILY@22 (DME) Custom orthotics See Rx Instructions .Route .MEDSUPPLY Qty: 1 0RF Rx Instructions: To [facility] (DME) Dexcom G6 Spray Pilot Misc See Rx Instructions .Route Qty: 1 0RF Rx Instructions: Check BS 4 times a day. (DME) Diabetic shoes with custom inserts See Rx Instructions .Route .MEDSUPPLY Qty: 1 0RF Rx Instructions: As directed BY CORRINE&O levothyroxine 75 mcg tablet 150 mcg PO DAILY Rx Instructions: One by mouth daily Monday thru Monday, and none on Monday. cilostazol 50 mg tablet 100 mg PO BID (DME) Diabetic Shoes with 3 sets of insoles See Rx Instructions .Route .MEDSUPPLY Qty: 1 0RF Rx Instructions: As directed by CORRINE&O urea 40 % cream 1 applic topical BID Qty: 198 3RF hydrocortisone 2.5 % cream 1 applic topical BID Qty: 30 2RF Rx Instructions: Apply to the top of the left foot Twice a day. empagliflozin 25 mg tablet 25 mg PO DAILY triamcinolone acetonide 0.025 % lotion 1 applic topical BID Qty: 60 0RF (DME) Diabetic Shoes with 3 inserts See Rx Instructions .Route .MEDSUPPLY Qty: 1 0RF Rx Instructions: As directed to the [facility] Glucagon Emergency Kit (human) 1 mg recon soln 1 mg SUBCUT Q20M PRN (Reason: hypoglycemia) Qty: 1 3RF Rx Instructions: until target blood sugar attained polyethylene glycol 3350 17 gram powder in packet 17 g PO DAILY Stiolto Respimat 2.5-2.5 mcg/actuation mist 2 puff inhalation DAILY Qty: 4 3RF mometasone 100 mcg/actuation HFA aerosol inhaler 1 puff inhalation BID Qty: 13 0RF gabapentin 100 mg capsule 100 mg PO TID Qty: 270 3RF atorvastatin 80 mg tablet 40 mg PO QPM Qty: 45 3RF guaifenesin 600 mg tablet extended release 12hr 600 mg PO .three times week Qty: 90 3RF (DME) Dexcom G6 Transmitter Device See Rx Instructions .Route Qty: 3 1RF Rx Instructions: Change every 3 months losartan 50 mg tablet See Rx Instructions .ROUTE .COMPLEX Qty: 135 3RF Dose Instruction: TAKE ONE AND ONE-HALF TABLETS BY MOUTH ONCE A DAY Rx Instructions: TAKE ONE AND ONE-HALF TABLETS BY MOUTH ONCE A DAY insulin aspart U-100 [Novolog FlexPen U-100 Insulin] 100 unit/mL (3 mL) insulin pen 20 unit SUBCUT TID Qty: 15 0RF Rx Instructions: USE BEFORE MEALS (DME) Dexcom G6 Sensor Device See Rx Instructions .ROUTE .COMPLEX Qty: 9 1RF Dose Instruction: USE 1 SENSOR UNDER THE SKIN EVERY 10 DAYS CHANGE SENSOR/SITE EVERY 10 DAYS. CONTACT [employer] [facility]UST[facility] AT FOR REPLACEMENT OF DAMAGED/MALFUNCTIONING SENSORS. Rx Instructions: CHANGE SENSOR/SITE EVERY 10 DAYS. isosorbide mononitrate 60 mg Tablet Extended Release 24 Hr 90 mg PO QAM cetirizine 10 mg Tablet 10 mg PO DAILY multivitamin Tablet 1 tab PO DAILY albuterol sulfate 90 mcg/actuation Hfa Aerosol Inhaler 1 inh INHALATION QID Held metformin 850 mg tablet 850 mg PO BID Hold Instructions: Resume on 02/22/24. Discharge Orders: Discharge Order (Routine); Ordered 02/20/24 Ordered By: Cornell Hoover Referrals: Shavonne Biswas MD [Primary Care Provider] - 03/12/24 9:30 am Kanaranzi,Lauren, DIRECTOR CHANNEL [Nurse Practitioner] - 03/07/24 1:00 pm Diet: Diabetic Activity: Increase activity as tolerated Patient Instructions: Clopidogrel (By mouth) (Plavix), Coronary Intravascular Stent Placement (DC), COPD Stoplight, Chest Pain Stoplight, Post Angiogram Home Care Instructions Discharge Date/Time: 02/20/24 10:00 Discharge Attestations Time Spent in Discharge Care*: less than 30 min Quality Metrics Clinical Quality Measures [ No reported AMI, CVA or VTE this stay] Coding Level of Care Code Acute Code for Chg Alison
[2024-02-20 09:46] VITALS: BP 105/65; PULSE 94; RESP 20; TEMP 36.6; O2SAT 92
--- NOTE | 2024-02-20 10:33 | PC.NURSE ---
Discharge Note Patient discharged to home via private vehicle accompanied by and dgtr. Discharge instructions reviewed with patient and/or ict sales representative. [place] medications and/or prescriptions provided. Belongings/home medications returned.
== END 2024-02-20 10:00 | disposition home or self-care (01) ==
LOC: CCL 07:29 → CSU 10:08
PROVIDERS: PCP Family Medicine; Visit Provider Internal Medicine
DX: I25.10 Atherosclerotic heart disease of native coronary artery without angina pectoris (principal); E78.5 Hyperlipidemia, unspecified; Z87.891 Personal history of nicotine dependence; Z79.82 Long term (current) use of aspirin; E11.42 Type 2 diabetes mellitus with diabetic polyneuropathy; Z85.51 Personal history of malignant neoplasm of bladder; Z95.5 Presence of coronary angioplasty implant and graft
CPT/HCPCS: 36415; 36416; 80048; 82962; 85025; 85347; 92978; 93454; 93571; 96372; 96374; 96376; 99152; 99153; C1725; C1753; C1769; C1874; C1887; C1894; C9600; J1644; J1815; J2250; J3010; J3490; J7030; Q0163; Q9967

== ENCOUNTER → 2024-03-07 12:51 | Outpatient (BNVA) | payer OTHER, SELFPAY | PROVIDERS: PCP Family Medicine; Visit Provider Nurse Practitioner Family | DX: I25.10 Atherosclerotic heart disease of native coronary artery without angina pectoris (principal); J44.9 Chronic obstructive pulmonary disease, unspecified; R12 Heartburn; I73.9 Peripheral vascular disease, unspecified; Z87.891 Personal history of nicotine dependence | CPT/HCPCS: 99214 ==

== ENCOUNTER → 2024-03-11 09:29 | Outpatient (BNVA) | payer OTHER, SELFPAY | PROVIDERS: PCP Family Medicine; Visit Provider Podiatrist Foot & Ankle Surgery | DX: I73.9 Peripheral vascular disease, unspecified (principal); E11.42 Type 2 diabetes mellitus with diabetic polyneuropathy; M21.41 Flat foot [pes planus] (acquired), right foot; M21.42 Flat foot [pes planus] (acquired), left foot; L60.3 Nail dystrophy; Z79.4 Long term (current) use of insulin; Z79.84 Long term (current) use of oral hypoglycemic drugs | CPT/HCPCS: 11721; 99213 ==

== ENCOUNTER 2024-03-26 13:00 | Oncology outpatient (recurring) (ONCR) | payer OTHER, SELFPAY ==
--- NOTE | 2024-03-18 12:00 | CT_ITS ---
WS: [id number] CT CHEST TECHNIQUE: Contrast enhanced CT of the chest with coronal and sagittal reformatted images. CLINICAL INFORMATION: surveillance COMPARISON: CT 06/19/23 and PET/CT 07/25/2023 DLP: 551.[address] scans at [facility] use at least one of these dose optimization techniques: automated e xposure control; mA and/or kV adjustment per patient size (includes targeted exams where dose is matc hed to clinical indication); or iterative reconstruction. FINDINGS: Stable treatment changes in the RIGHT upper lobe with bronchovascular thickening and bronch iectasis with associated volume loss. Fibrosis RIGHT upper lobe. No mediastinal or hilar lymphadenopa thy. No axillary lymphadenopathy. Lungs are otherwise well aerated. No evidence of new or progressive disease. Moderate chronic emphysematous changes. Normal caliber thoracic aorta. Aortic calcification. Adren al glands are normal. Small esophageal hiatal hernia. Thoracic kyphosis CT/CT chest w con* [id number] IMPRESSION: 1. No evidence of new or progressive disease. 2. Stable treatment changes with bronchiectasis and fibrosis in the medial RIG HT upper lobe with bronchovascular thickening. 3. No other significant changes.
[2024-03-18] MEDS: iohexol 350 mg/mL 500 mL Btl (per mL) IV (12:10)
[2024-03-26 13:27] LABS: Basophils # 0.1 10^3/uL (0.0-0.1); Basophils % 0.5 %; Eosinophils # 0.7 10^3/uL (0.0-0.8); Eosinophils % 5.9 %; Hematocrit 40.1 % (37-53); Lymphocytes # 1.6 10^3/uL (0.8-4.8); Lymphocytes % 13.1 %; Mean Corpuscular HGB Conc 32.9 g/dL (30-55); Mean Corpuscular Hemoglobin 30.3 pg (27-33); Mean Corpuscular Volume 92.2 fl (82-101); Mean Platelet Volume 8.6 fL (7.4-10.4); Monocytes # 0.9 10^3/uL (0.2-0.9); Monocytes % 7.2 %; Neutrophils # 8.71 10^3/uL (1.8-7.7); Nucleated Red Blood Cells % 0 %; Platelet Count 234 10^3/cmm (157-399); Red Blood Count 4.35 10^6/uL (3.85-5.65); Red Cell Distribution Width 14.5 % (12.1-15.1); White Blood Count 11.94 10^3/uL (3.29-11.43)
[2024-03-26 13:42] LABS: Alanine Aminotransferase 17 U/L (0-41); Albumin Level 3.9 g/dL (3.5-5.2); Alkaline Phosphatase 63 U/L (40-130); Anion Gap 16.4 (5-19); Aspartate Amino Transferase 16 U/L (0-40); Blood Urea Nitrogen 15 mg/dL (8-23); Calcium 9.2 mg/dL (8.5-10.5); Carbon Dioxide 25 mmol/L (22-29); Chloride 98 mmol/L (98-107); Glucose 115 mg/dL (65-115); Osmolality Calculated 282 mOsm/kg (285-295); Potassium 4.4 mmol/L (3.5-5.1); Sodium 135 mmol/L (136-145); Total Bilirubin 0.5 mg/dL (0.15-1.2); Total Protein 5.9 g/dL (6.6-8.7)
== END 2024-04-13 23:59 | disposition home or self-care (01) ==
PROVIDERS: Nurse Practitioner Family; PCP Family Medicine; Visit Provider Internal Medicine Hematology & Oncology
DX: Z53.9 Procedure and treatment not carried out, unspecified reason; C34.11 Malignant neoplasm of upper lobe, right bronchus or lung; Z92.3 Personal history of irradiation; Z92.21 Personal history of antineoplastic chemotherapy; I25.10 Atherosclerotic heart disease of native coronary artery without angina pectoris
CPT/HCPCS: 36415; 71260; 80048; 80053; 85025; 99214

== ENCOUNTER → 2024-03-28 09:15 | Outpatient (BNVA) | payer OTHER, SELFPAY | PROVIDERS: PCP Family Medicine; Visit Provider Nurse Practitioner Family | DX: I25.119 Atherosclerotic heart disease of native coronary artery with unspecified angina pectoris (principal); R06.09 Other forms of dyspnea; R07.9 Chest pain, unspecified; Z87.891 Personal history of nicotine dependence | CPT/HCPCS: 99214 ==

== ENCOUNTER 2024-04-23 09:53 | Oncology outpatient (recurring) (ONCR) | payer OTHER, SELFPAY | END 2024-05-14 23:59 | disposition home or self-care (01) | LOC: ONCMED 09:53 | PROVIDERS: PCP Family Medicine; Visit Provider Internal Medicine Hematology & Oncology | DX: Z45.2 Encounter for adjustment and management of vascular access device | CPT/HCPCS: 96523 ==

== ENCOUNTER → 2024-05-10 09:44 | Outpatient (BNVA) | payer OTHER, SELFPAY | PROVIDERS: PCP Family Medicine; Visit Provider Internal Medicine | DX: I77.0 Arteriovenous fistula, acquired (principal); R60.0 Localized edema; I77.9 Disorder of arteries and arterioles, unspecified; E11.42 Type 2 diabetes mellitus with diabetic polyneuropathy; C34.90 Malignant neoplasm of unspecified part of unspecified bronchus or lung; R07.9 Chest pain, unspecified; Z87.891 Personal history of nicotine dependence; Z79.4 Long term (current) use of insulin | CPT/HCPCS: 99214 ==

== ENCOUNTER 2024-05-27 08:59 | Oncology outpatient (recurring) (ONCR) | payer OTHER, SELFPAY ==
[2024-05-27 10:26] LABS: Estmated Average Glucose 146; Hemoglobin A1C 6.7 % (4.0-6.0)
[2024-05-27 10:43] LABS: Creatinine Urine, Random 37 mg/dL (39-259); Microalbum Creatinine Ratio Ur 27 mg/dL (0-20); Microalbumin Random Urine 1 ug/dL (0-20)
[2024-05-27 10:44] LABS: Alanine Aminotransferase 24 U/L (0-41); Albumin Level 4.2 g/dL (3.5-5.2); Alkaline Phosphatase 65 U/L (40-130); Anion Gap 15.4 (5-19); Aspartate Amino Transferase 22 U/L (0-40); Blood Urea Nitrogen 15 mg/dL (8-23); Calcium 9.7 mg/dL (8.5-10.5); Carbon Dioxide 25 mmol/L (22-29); Chloride 100 mmol/L (98-107); Chol HDL Ratio 2.19 mg/dL (1.0-5.00); Cholesterol 103 mg/dL (0-200); Free T4 Free Thyroxine 1.41 ng/dL (0.82-1.77); Globulin 2.6 g/dL (1.3-4.6); Glucose 113 mg/dL (65-115); HDL Cholesterol 47 mg/dL (60-100); LDL Cholesterol Calculated 40 mg/dL (50-129); LDL HDL Ratio 0.85 RATIO (0.00-3.22); Osmolality Calculated 284 mOsm/kg (285-295); Potassium 4.4 mmol/L (3.5-5.1); Sodium 136 mmol/L (136-145); Total Bilirubin 0.3 mg/dL (0.15-1.2); Total Protein 6.8 g/dL (6.6-8.7); Triglycerides 78 mg/dL (0-150)
== END 2024-06-14 23:59 | disposition home or self-care (01) ==
LOC: ONCMED 08:59
PROVIDERS: Internal Medicine; PCP Family Medicine; Visit Provider Internal Medicine Hematology & Oncology
DX: E11.42 Type 2 diabetes mellitus with diabetic polyneuropathy (principal); Z79.4 Long term (current) use of insulin; E78.5 Hyperlipidemia, unspecified; E03.9 Hypothyroidism, unspecified
CPT/HCPCS: 36415; 80053; 80061; 82044; 83036; 84439; 84443

== ENCOUNTER → 2024-06-07 09:21 | Outpatient (BNVA) | payer OTHER, SELFPAY | PROVIDERS: PCP Family Medicine; Visit Provider Internal Medicine | DX: E11.42 Type 2 diabetes mellitus with diabetic polyneuropathy (principal); Z79.4 Long term (current) use of insulin; E78.5 Hyperlipidemia, unspecified; E03.9 Hypothyroidism, unspecified; I73.9 Peripheral vascular disease, unspecified | CPT/HCPCS: 99214 ==

== ENCOUNTER → 2024-06-10 10:09 | Outpatient (BNVA) | payer OTHER, SELFPAY | PROVIDERS: PCP Family Medicine; Visit Provider Podiatrist Foot & Ankle Surgery | DX: E11.8 Type 2 diabetes mellitus with unspecified complications (principal); I73.9 Peripheral vascular disease, unspecified; E11.42 Type 2 diabetes mellitus with diabetic polyneuropathy; M21.41 Flat foot [pes planus] (acquired), right foot; M21.42 Flat foot [pes planus] (acquired), left foot; L60.3 Nail dystrophy; L84 Corns and callosities; Z79.4 Long term (current) use of insulin; Z79.84 Long term (current) use of oral hypoglycemic drugs | CPT/HCPCS: 11055; 11721 ==

== ENCOUNTER → 2024-06-28 10:23 | Outpatient (BNVA) | payer OTHER, SELFPAY | PROVIDERS: PCP Family Medicine; Visit Provider Nurse Practitioner Family | DX: R07.9 Chest pain, unspecified (principal); I25.119 Atherosclerotic heart disease of native coronary artery with unspecified angina pectoris; I73.9 Peripheral vascular disease, unspecified; I25.118 Atherosclerotic heart disease of native coronary artery with other forms of angina pectoris; K20.90 Esophagitis, unspecified without bleeding; Z87.891 Personal history of nicotine dependence; R60.9 Edema, unspecified | CPT/HCPCS: 99214 ==

== ENCOUNTER 2024-07-12 10:30 | Oncology outpatient (recurring) (ONCR) | payer OTHER, SELFPAY ==
[2024-07-12 09:36] VITALS: BMI 31.5
--- NOTE | 2024-07-12 09:39 | ECG_ITS ---
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 Interpretive Statements LEXISCAN SESTAMIBI STRESS TEST Procedure: At the baseline, the blood pressure was 151/80 mmHg with a heart rate of 88 bpm. The electrocardiogram showed normal sinus rhythm, normal axis with normal ST and T's. The Lexiscan was infused over a period of 20 seconds. A total of 0.4 mg of Lexiscan was infused. The stress phase was continued for a total of 5 minutes. Heart rate was at the end of stress phase was 97 bpm and a blood pressure of 144/84 mmHg. The EKG at the peak infusion revealed normal sinus rhythm with no significant ST-T wave changes. Sestamibi was injected 20 seconds after the Lexiscan infusion. Blood pressure at the end of recovery phase was 155/84 mmHg with a heart rate of 95 bpm. Conclusion: 1. Normal EKG response to Lexiscan infusion 2. No Lexiscan induced chest pain or cardiac arrhythmia. 3. Normal blood pressure and heart rate response. 4. Sestamibi/sestamibi perfusion scan pending; see separate report. Electronically Signed On 07-31-2024 12:18:57 CDT by Cornell Hoover M.D. [email or web address]
--- NOTE | 2024-07-12 09:40 | NMCV_ITS ---
NM amauri perf SPECT r/s* [id number] Dee DeeMarbin Age: 78 Gender: M : 1945 Exam Date: 07/12/2024 09:40 Ordering Phys: Lauren Maki Technologist: BILL Fontaine Exam [facility]: [facility] Indications: cp STRESS TEST Please see separate stress test report in [facility] for full findings IMAGE PROTOCOL Rest/Stress 1 Lexiscan Day Radiopharmaceutical Dose (mCi) Administration Site Administered by Rest: Tc-99m 10.5 IV Sury Vee, CEREAL CHEMIST Sestamibi Stress:Tc-99m 33 IV Sury Davilagle, CEREAL CHEMIST Sestamibi Rest: 12-Jul-2024 60 Discovery 630 Stress: 12-Jul-2024 30 Discovery 630 0.4mg Lexiscan. Images obtained in supine and prone position. SPECT RESULTS Technical Quality: Good Raw Data Analysis: Normal Image Corrections: No attenuation or motion correction applied Summed Stress Score: 9 Summed Rest Score: 2 Summed Difference Score: 7 PERFUSION FINDINGS small to medium sized areas of partially reversible perfusion defect seen in the inferior/ inferolateral wall. 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 IMPRESSIONS 1. 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 2. LV systolic function is normal Cornell Hoover MD (Electronically Signed) Final Date: 15 July 2024 22:22 S
[2024-07-12] MEDS: regadenoson 0.4 Mg/5 ml Syringe IVP (10:58)
[2024-07-12 11:09] VITALS: BP 155/84; PULSE 95
== END 2024-07-12 23:59 | disposition home or self-care (01) ==
LOC: ONCMED 07-15 10:06
PROVIDERS: PCP Family Medicine; Visit Provider Internal Medicine Medical Oncology
DX: Z53.9 Procedure and treatment not carried out, unspecified reason; R07.9 Chest pain, unspecified
CPT/HCPCS: 36415; 78452; 93017; 96374; 96523; A9500; J2785

== ENCOUNTER → 2024-07-16 10:01 | Outpatient (BNVA) | payer OTHER, SELFPAY | PROVIDERS: PCP Family Medicine; Visit Provider Internal Medicine | DX: E11.42 Type 2 diabetes mellitus with diabetic polyneuropathy (principal); Z79.4 Long term (current) use of insulin; E78.5 Hyperlipidemia, unspecified; E03.9 Hypothyroidism, unspecified; I73.9 Peripheral vascular disease, unspecified | CPT/HCPCS: 99214 ==

== ENCOUNTER 2024-07-23 09:52 | Oncology outpatient (recurring) (ONCR) | payer OTHER, SELFPAY | END 2024-08-12 23:59 | disposition home or self-care (01) | LOC: ONCMED 09:52 | PROVIDERS: PCP Family Medicine; Visit Provider Internal Medicine Medical Oncology | DX: Z45.2 Encounter for adjustment and management of vascular access device (principal) | CPT/HCPCS: 96523 ==

== ENCOUNTER 2024-08-13 05:52 | Outpatient (CLI) | payer OTHER, SELFPAY ==
[2024-08-13] VITALS (18 sets, daily range): BP systolic 143–201; BP diastolic 73–104; PULSE 83–106; RESP 15–20; TEMP 36.6; O2SAT 89–96; BMI 31.1
--- NOTE | 2024-08-13 06:00 | XACV_ITS ---
Exam Room: 2 Ht: 178 cm Wt: 98 kg BSA: 2.23 m2 Gender: Male : 1945 Any Known Allergies: No known allergies Exam Priority: Routine Procedure(s): Procedure Description: Diagnostic procedure Procedure Description: Left Heart Catheterization Procedure Description: Left ventriculography Procedure Description: Coronary Angiography Diagnostic Cath Status: Elective Diagnostic Findings * INDICATION: Chest pain/abnormal stress test. * Left Main has no significant disease. * Left Anterior Descending has patent prior proximal and mid LAD stents. * Circumflex has ostial 30% stenosis. Gives rise to OM 1 that is free of significant disease. Mid left circumflex artery has HAZARD MITIGATION OFFICER. * Proximal Right Coronary Artery: chronic total occlusion, SEPIDEH: 0 flow. Left to right collaterals fill the distal RCA. * Coronary angiography shows right dominance. Conclusions 1. HAZARD MITIGATION OFFICER of RCA and mid to distal Left circumflex artery. LAD has patent prior stents. 2. Normal left ventricular systolic function. Ejection fraction of 50%. Recommendations * Aggressive risk factor modification. * Outpatient cardiology follow up in 1 month. Interventional RX Recommendation: medical therapy and/or counseling Diagnostic RX Recommendation: medical therapy and/or counseling Anticoagulation: Heparin Ventriculography Ejection Fraction: 50.0 % Pressures Phase:Rest AO : 146 / 76 ( 106 ) @ 8:50:00 AM 132 / 84 ( 107 ) @ 8:51:00 AM 145 / 65 ( 99 ) @ 8:57:00 AM 146 / 65 ( 100 ) @ 8:57:00 AM LV : 148 / -16 / 10 @ 8:56:00 AM 147 / -10 / 17 @ 8:57:00 AM 147 / -10 / 16 @ 8:57:00 AM Valves Phase:DefaultPhase AV : 1.0 @ 8:02:44 AM 1.0 @ 8:02:44 AM AV Mean Gradient: 0.0 @ 8:02:44 AM Clinical Evaluation EBL: 5mL-10mL Procedural Details Pre-Procedure Time Out. Identified patient by full name and date of as verbalized by the patient/guarantor. Does the consent match the physician's order: Yes. Accurate & Complete Informed Consent: Yes. Inpatient/Outpatient History & Physical on Chart: Yes. If H&P is completed, is and addenduem needed: No; If yes, is the addendum complete: N/A. Visualize and Verify Site with Patient/Guarantor: N/A. Relevant Radiology Images available: Yes. Pre-op teaching completed and patient verbalized understanding. The risks, benefits, and alternatives of sedation and/or procedure were discussed by physician. The patient agrees to continue. Procedure started. Current Diagnosis : Chest Pain. Physician arrived. [facility] Clinical Fraility Score: 3: Managing Well. Pole Inspector Indications: Worsening Angina. Chest Pain Symptom Assessment: Typical Angina Symptoms. Correct patient, site and procedure confirmed by cath team. Current diagnosis: Chest Pain. PERRLA. Strong, equal hand cold reduction roller bilaterally. Lungs clear x 5 lobes. IV Site on Arrival: 20 gauge in the left anticubital. IV Fluids: 0.9% NaCl at KVO. 0 mL infused prior to vp lab. Pre Procedural Pulses: right dorsalis pedis was 2+. Pre Procedural Pulses: left dorsalis pedis was Doppled. Pre Procedural Pulses: right posterior tibial was 2+. Pre Procedural Pulses: left posterior tibial was Doppled. Pre Procedural Pulses: bilateral radial was 3+. Oxygen started at 2liters/min via nasal canula. right groin was prepped with chloroprep then draped in the usual sterile fashion. right radial was prepped with chloroprep then draped in the usual sterile fashion. Baseline sample Acquired. HR: 91 BPM. Physician scrubbed in. Correct Patient: Yes; Correct Procedure: Yes; Correct Site: Yes; Correct Patient Position: Yes; Correct Supplies: Yes; Dried Flammable Prep: Yes; Blood Products Available: N/A;. Lidocaine 1% infiltrated to the right radial. Arterial access obtained. A 5 serbian TIG catheter in over wire. Multiple views taken of left coronary artery. Catheter redirected to the RCA. Multiple views taken of right coronary artery. Catheter removed over the exchange wire. A 5 serbian Angled Pig catheter in over wire. EDP Sample taken: LV 148/-17,10; HR: 90 BPM; SpO2: 96%. LV gram performed in [place] @ 10 mL/second for a total of 30 mL. EDP Sample taken: LV 147/-11,17; HR: 90 BPM; SpO2: 96%. Pullback taken: LV 147/-11,16; AO 145/65(99); Mean: 0mmHg, Peak to Peak: 1mmHg, SEP: 24sec/min; HR: 87 BPM; SpO2: 96%. Catheter removed over the exchange wire. Vital chart was stopped. Post Procedure: Pulses reassessed and unchanged. PERRLA. Strong, equal hand cold reduction roller bilaterally. No VTE prophylaxis required. Medication's Wasted: Lidocaine 1% = 18 mL. Medication's Wasted: Nitro = 49.8 mcg. Medication's Wasted: Heparin = 1000 units. Medication's Wasted: Other = Fentanyl 50mcg Versed 1 mg. Total IV fluids: 30 mL. Post-op diagnosis: HAZARD MITIGATION OFFICER of RCA, patent previous stents. Complications: None. Estimated blood loss: 5mL-10mL. Responsiveness - Normal response to verbal stimuli; alert and oriented, PERRLA. Airway - Unaffected, no intervention required; spontaneous ventilation. Circulation: W/N/L, pulses unchanged. Nausea/Vomiting: No. Procedure completed. Patient transferred by wheelchair to CPRU. Access Site Site: Right Radial artery Sheath Size: 6 Fr Hemostasis Success: Unsuccessful Procedure Medications Start: 7:40 AM Stop: 7:40 AM Medication: Plavix Amount: 300 mg Route: P.O. Start: 7:40 AM Stop: 7:40 AM Medication: Versed Amount: 1 mg Route: I.V. Start: 7:41 AM Stop: 7:41 AM Medication: Fentanyl Amount: 50 mcg Route: I.V. Start: 7:48 AM Stop: 7:48 AM Medication: Nitrogylcerin Amount: 200 mcg Route: I.A. Start: 7:50 AM Stop: 7:50 AM Medication: Heparin Amount: 5000 units Route: I.V. I, the attending physician, have reviewed and verified all procedure medications. Yes, all medications given per verbal order History/Risk Factors Hypertension: No Dyslipidemia: No Peripheral Arterial Disease (PAD): Yes Myocardial Infarction (DE): No Obesity: No Renal Disease: No Tobacco Use: Former Prior Interventions PCI: Yes CABG: No Valve Surgery: No Date of PCI: 02/19/2024 Report Signatures Finalized by Cornell Hoover MD on 09/01/2024 07:53 AM
[2024-08-13 06:24] LABS: Basophils # 0.1 10^3/uL (0.0-0.1); Basophils % 0.7 %; Eosinophils # 0.7 10^3/uL (0.0-0.8); Eosinophils % 9.1 %; Hematocrit 43.3 % (37-53); Lymphocytes # 1.7 10^3/uL (0.8-4.8); Lymphocytes % 21.3 %; Mean Corpuscular HGB Conc 32.6 g/dL (30-55); Mean Corpuscular Hemoglobin 29.6 pg (27-33); Mean Corpuscular Volume 90.8 fl (82-101); Mean Platelet Volume 8.5 fL (7.4-10.4); Monocytes # 0.8 10^3/uL (0.2-0.9); Monocytes % 10.4 %; Neutrophils # 4.67 10^3/uL (1.8-7.7); Neutrophils % 58.1 %; Nucleated Red Blood Cells % 0 %; Platelet Count 275 10^3/cmm (157-399); Red Blood Count 4.77 10^6/uL (3.85-5.65); Red Cell Distribution Width 14.1 % (12.1-15.1); White Blood Count 8.04 10^3/uL (3.29-11.43)
[2024-08-13] MEDS: aspirin 325 mg Tablet PO (06:28)
[2024-08-13] MEDS: diphenhydrAMINE 50 mg Capsule PO (06:28)
[2024-08-13 06:44] LABS: Anion Gap 13.2 (5-19); Blood Urea Nitrogen 14 mg/dL (8-23); Calcium 9.5 mg/dL (8.5-10.5); Carbon Dioxide 28 mmol/L (22-29); Chloride 99 mmol/L (98-107); Glucose 213 mg/dL (65-115); Osmolality Calculated 289 mOsm/kg (285-295); Potassium 4.2 mmol/L (3.5-5.1); Sodium 136 mmol/L (136-145)
[2024-08-13 06:50] LABS: Creatinine Clr Calc Pharmacy 88.0815
--- NOTE | 2024-08-13 07:40 | W.PM.OPSFHP ---
Same Day Surgery H&P Indication for Procedure/HPI DATE OF PROCEDURE: August 13, 2024 CHIEF COMPLAINT/INDICATIONFOR SURGICAL PROCEDURE: Worsening angina/ abnormal stress test PREOP DIAGNOSIS: Worsening angina PLANNED PROCEDURE: Operation Date: 08/13/24 07:00 Proposed Procedures p Cardiac Catheterization - [facility] w/wo LV & Coros(Left) - Cornell Hoover M.D Possible percutaneous coronary intervention 78-year-old man with past medical history of peripheral artery disease, coronary artery disease with prior stents who has been having significant substernal heart burning sensation. Also has dyspnea on exertion that is worsening. He had a stress test that is abnormal showing areas of ischemia in inferior and inferolateral wall. Plan for coronary angiogram with possible PCI Medications/Allergies* Home Medications ?Medication ?Instructions ?Recorded ?Confirmed ?Type aspirin 81 mg tablet,delayed 81 mg PO DAILY@12 09/18/19 08/12/24 History release cholecalciferol (vitamin D3) 25 25 mcg PO DAILY@0730 09/18/19 08/12/24 History mcg (1,000 unit) capsule cetirizine 10 mg tablet 10 mg PO DAILY 10/07/21 08/12/24 History isosorbide mononitrate 60 mg 90 mg PO QAM 10/07/21 08/12/24 History tablet,extended release 24 hr multivitamin 1 tab PO DAILY 10/07/21 08/12/24 History levothyroxine 75 mcg tablet 150 mcg PO DAILY 12/07/21 08/12/24 History insulin glargine 100 unit/mL (3 40 unit SUBCUT DAILY see pharmacy 01/14/22 08/12/24 History mL) subcutaneous pen comments cilostazol 50 mg tablet 100 mg PO BID 09/15/22 08/13/24 History polyethylene glycol 3350 17 gram 17 g PO DAILY 10/13/22 08/12/24 History oral powder packet albuterol sulfate 90 mcg/actuation 1 inh inhalation QID 02/20/24 08/12/24 History aerosol inhaler Allergies/Adverse Reactions Allergy/AdvReac Type Severity Reaction Status Date / Time No Known Allergies Allergy Verified 08/13/24 06:46 Current Medications: Generic Name Dose Route Start Last Admin Trade Name Freq PRN Reason Stop Dose Admin Sodium Chloride 1,000 mls @ 50 mls/hr 08/13/24 06:00 08/13/24 06:28 Sodium Chloride 0.9% IV 08/14/24 01:59 Not Given .Q20H ONE Pertinent History/Comorbid Conditions* Medical History (Updated 07/30/24 @ 13:49 by SHAZIA Saxena) Atherosclerosis of coronary artery Lung nodule Type 2 diabetes mellitus with diabetic polyneuropathy Bladder cancer PVD (peripheral vascular disease) Surgical History (Updated 04/01/20 @ 09:04 by Stanislav Garcia MD) Port-A-Cath in place (04/01/20) H/O esophagogastroduodenoscopy (04/01/20) History of bronchoscopy History of bladder surgery History of surgical removal of pilonidal cyst H/O colonoscopy H/O heart artery stent Family History (Updated 09/18/19 @ 10:18 by Swetha King LPN) Diabetes CAD (coronary artery disease) Hyperlipidemia Lung disease Cancer Hypertension Denies family history of Clotting disorder Dementia Psychiatric illness Chronic kidney disease (CKD) Suicide Anesthesia complication Bleeding disorder Family history of premature coronary artery disease Stroke Social History Smoking and tobacco/nicotine status: former use of tobacco/nicotine (quit 2005) Quit status (tobacco/nicotine): has quit using Year quit tobacco: 2007- PPD x 45 Years Alcohol intake: never Substance/Drug Use: never Lives independently: Yes Household members: spouse Marital status: service: Yes Current occupational status: retired Do you think of yourself as: Straight/Heterosexual Current gender identity: Male Pertinent Exam Findings alert, oriented x 3, clear to auscultation bilaterally and regular rate & rhythm Conscious Sedation Assessment PATIENT ASSESSED PRIOR TO SEDATION, WITH NO CHANGE NOTED: Yes AIRWAY EVAL/ANESTHESIA PLAN: normal airway, ASA III, Local Anesthesia, Risks, benefits & alternatives of sedation and/or procedure discussed and Patient agrees to continue as planned Recommendations Risks and benefits of procedure reviewed and Patient/family agree to proceed Surgery/Procedure today (Left heart cath with possible percutaneous coronary intervention) Coding Level of Care Code Acute Code for Chg Fwmiguel a
--- NOTE | 2024-08-13 08:00 | SUR.PHASEII ---
POST CATH NOTE Recieved patient from laboratory chemical assistant. Status post cardiac catheterization via the right radial approach. TR Band is in place. Site is hemostatic with no s/s of active bleeding present. Verbal post cath instructions went over with the patient/family. They understood well. Vitals and assessments per flowsheet. Call light within reach. Informed to call for needs.
--- NOTE | 2024-08-13 08:10 | SUR.PHASEII ---
post cath fluids IV fluids set at 75 ml/hr post cath per verbal order from Dr Hoover. To infuse 0.9% ns at 75 ml/hr until discharge.
--- NOTE | 2024-08-13 08:13 | P.PCN_ITS ---
Procedure Note: Date of procedure: 08/13/24 Pre-procedure diagnosis: Worsening angina/ abnormal stress test Post-procedure diagnosis: other (Patent LAD stents. OPTICS TEST TECHNICIAN of RCA) Procedure: Left main artery is patent. LAD has patent prior stents. RCA has chronic total occlusion. Ostial left circumflex artery has mild to moderate 30 to 40% disease. Medical therapy. Can consider workup of gallbladder related issues with PCP. Performing Provider: Cornell Hoover Complications: None Condition: stable Disposition: same day Coding Level of Care Code Acute Code for Georgeg Alison
== END 2024-08-13 12:27 | disposition home or self-care (01) ==
PROVIDERS: PCP Family Medicine; Visit Provider Internal Medicine
DX: I25.10 Atherosclerotic heart disease of native coronary artery without angina pectoris (principal); I25.82 Chronic total occlusion of coronary artery; Z86.79 Personal history of other diseases of the circulatory system; Z79.82 Long term (current) use of aspirin; I73.9 Peripheral vascular disease, unspecified; E11.42 Type 2 diabetes mellitus with diabetic polyneuropathy; Z79.4 Long term (current) use of insulin; Z87.891 Personal history of nicotine dependence; Z95.5 Presence of coronary angioplasty implant and graft; Z85.51 Personal history of malignant neoplasm of bladder
CPT/HCPCS: 36415; 80048; 85025; 93458; 96374; 99152; 99153; C1769; C1887; C1894; J1644; J2250; J3010; J3490; J7030; J9999; Q0163; Q9967

== ENCOUNTER 2024-08-27 12:52 | Oncology outpatient (recurring) (ONCR) | payer OTHER, SELFPAY | END 2024-09-11 23:59 | disposition home or self-care (01) | LOC: ONCMED 12:53 | PROVIDERS: PCP Family Medicine; Visit Provider Internal Medicine Medical Oncology | DX: Z45.2 Encounter for adjustment and management of vascular access device (principal) | CPT/HCPCS: 96523 ==

== ENCOUNTER → 2024-09-02 12:47 | Outpatient (BNVA) | payer OTHER, SELFPAY | PROVIDERS: PCP Family Medicine; Visit Provider Nurse Practitioner Family | DX: I25.10 Atherosclerotic heart disease of native coronary artery without angina pectoris (principal); I10 Essential (primary) hypertension; K21.9 Gastro-esophageal reflux disease without esophagitis; Z95.5 Presence of coronary angioplasty implant and graft; Z87.891 Personal history of nicotine dependence; Z79.01 Long term (current) use of anticoagulants; Z79.82 Long term (current) use of aspirin; I25.119 Atherosclerotic heart disease of native coronary artery with unspecified angina pectoris | CPT/HCPCS: 36415; 80053; 80061; 82044; 83036; 84439; 84443; 99214 ==

== ENCOUNTER → 2024-09-09 09:46 | Outpatient (BNVA) | payer OTHER, SELFPAY | PROVIDERS: PCP Family Medicine; Visit Provider Podiatrist Foot & Ankle Surgery | DX: E11.42 Type 2 diabetes mellitus with diabetic polyneuropathy (principal); L60.3 Nail dystrophy; L84 Corns and callosities; I73.9 Peripheral vascular disease, unspecified; M21.41 Flat foot [pes planus] (acquired), right foot; M21.42 Flat foot [pes planus] (acquired), left foot; M20.41 Other hammer toe(s) (acquired), right foot; M20.42 Other hammer toe(s) (acquired), left foot; Z79.4 Long term (current) use of insulin; Z79.84 Long term (current) use of oral hypoglycemic drugs | CPT/HCPCS: 11055; 11721; 99213 ==

== ENCOUNTER → 2024-09-25 14:39 | Outpatient (BNVA) | payer OTHER, SELFPAY | PROVIDERS: PCP Family Medicine; Visit Provider Internal Medicine | DX: R07.89 Other chest pain (principal); I77.0 Arteriovenous fistula, acquired; R60.0 Localized edema; I77.9 Disorder of arteries and arterioles, unspecified; E11.42 Type 2 diabetes mellitus with diabetic polyneuropathy; Z79.4 Long term (current) use of insulin; Z79.84 Long term (current) use of oral hypoglycemic drugs; C34.90 Malignant neoplasm of unspecified part of unspecified bronchus or lung; Z79.82 Long term (current) use of aspirin; Z95.5 Presence of coronary angioplasty implant and graft; Z87.891 Personal history of nicotine dependence | CPT/HCPCS: 99213 ==

== ENCOUNTER 2024-10-08 12:00 | Oncology outpatient (recurring) (ONCR) | payer OTHER, SELFPAY ==
[2024-09-24 10:20] LABS: Basophils # 0.1 10^3/uL (0.0-0.1); Basophils % 0.7 %; Eosinophils # 0.7 10^3/uL (0.0-0.8); Hematocrit 38.3 % (37-53); Lymphocytes # 1.6 10^3/uL (0.8-4.8); Lymphocytes % 18.3 %; Mean Corpuscular HGB Conc 33.4 g/dL (30-55); Mean Corpuscular Hemoglobin 29.8 pg (27-33); Mean Corpuscular Volume 89.3 fl (82-101); Mean Platelet Volume 8.4 fL (7.4-10.4); Monocytes # 0.8 10^3/uL (0.2-0.9); Monocytes % 9.4 %; Neutrophils # 5.39 10^3/uL (1.8-7.7); Neutrophils % 63.2 %; Nucleated Red Blood Cells % 0 %; Platelet Count 256 10^3/cmm (157-399); Red Blood Count 4.29 10^6/uL (3.85-5.65); White Blood Count 8.52 10^3/uL (3.29-11.43)
[2024-09-24 10:51] LABS: Alanine Aminotransferase 14 U/L (0-41); Albumin Level 3.9 g/dL (3.5-5.2); Alkaline Phosphatase 67 U/L (40-130); Anion Gap 13.4 (5-19); Aspartate Amino Transferase 15 U/L (0-40); Blood Urea Nitrogen 7 mg/dL (8-23); Calcium 9.2 mg/dL (8.5-10.5); Carbon Dioxide 27 mmol/L (22-29); Chloride 94 mmol/L (98-107); Creatinine Clr Calc Pharmacy 87.5049; Globulin 2.9 g/dL (1.3-4.6); Glucose 131 mg/dL (65-115); Osmolality Calculated 270 mOsm/kg (285-295); Potassium 4.4 mmol/L (3.5-5.1); Sodium 130 mmol/L (136-145); Total Bilirubin 0.5 mg/dL (0.15-1.2); Total Protein 6.8 g/dL (6.6-8.7)
--- NOTE | 2024-10-08 12:00 | CT_ITS ---
WS: [id number] CT ABDOMEN AND PELVIS WITH CONTRAST HISTORY: Lung and bladder cancer. TECHNIQUE: Imaging performed of the abdomen and pelvis with IV contrast. Single phase imaging of the abdomen. Coronal and sagittal reformats are submitted. All CT scans at [facility] use at least one of these dose optimization techniques: automated exposure control; mA and/or kV adjustment per patient size (includes targeted exams where dose is matched to clinical indication); or iterative reconstruction. IV CONTRAST: Omnipaque 350; 100 mL IV. Oral contrast: Yes. DLP: 658.17 mGy.cm COMPARISON: 11/26/2019 Lower thorax: Lung bases are clear. Heart is normal size. Small hiatal hernia. Liver/biliary system: There are a few small hepatic granulomatous. Normal portal vein. Gallbladder: Normal. No gallstones or wall thickening. No pericholecystic fluid. Pancreas: Normal size pancreas and pancreatic duct. No adjacent inflammation. Spleen: Normal size spleen. No mass or infarct. Adrenal glands: Normal. Right kidney: Normal. Left kidney: Normal. Aorta: Moderate atherosclerosis with no aneurysm. Large amount of plaque at the origin of the celiac axis and SMA. 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 Lymphadenopathy: None. Free fluid: None. GI tract: No small bowel obstruction. Stomach is well distended. Moderate diffuse constipation. Normal appendix. Abdominal wall: Unremarkable abdominal wall. No hernia. Pelvis: Well-distended urinary bladder. Bladder is just slightly over distended. No intraluminal filling defect. No wall enhancement. Bones: Unremarkable. CT/CT abdomen pelvis w con* [id number] IMPRESSION: 1. No acute abdominal or pelvic abnormalities. 2. Advanced atherosclerosis within the aorta and the celiac axis. 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 3. Urinary bladder is overly distended. No bladder wall nodule or enhancement. 4. No ascites or adenopathy.
[2024-10-08] MEDS: iohexol 350 mg/mL 500 mL Btl (per mL) PO (13:02)
[2024-10-08] MEDS: iohexol 350 mg/mL 500 mL Btl (per mL) IV (13:03)
== END 2024-10-12 23:59 | disposition home or self-care (01) ==
PROVIDERS: Nurse Practitioner Family; PCP Family Medicine; Visit Provider Internal Medicine
DX: Z53.9 Procedure and treatment not carried out, unspecified reason; Z45.2 Encounter for adjustment and management of vascular access device; Z92.3 Personal history of irradiation; Z92.21 Personal history of antineoplastic chemotherapy; N32.89 Other specified disorders of bladder; I70.0 Atherosclerosis of aorta; I70.8 Atherosclerosis of other arteries
CPT/HCPCS: 36591; 74177; 80053; 85025; 96523; 99213

== ENCOUNTER 2024-10-15 12:26 | Oncology outpatient (recurring) (ONCR) | payer OTHER, SELFPAY ==
[2024-10-15 13:01] LABS: Basophils # 0.1 10^3/uL (0.0-0.1); Basophils % 0.8 %; Eosinophils # 0.7 10^3/uL (0.0-0.8); Hematocrit 37.2 % (37-53); Lymphocytes # 1.6 10^3/uL (0.8-4.8); Lymphocytes % 17.5 %; Mean Corpuscular HGB Conc 33.3 g/dL (30-55); Mean Corpuscular Hemoglobin 29.9 pg (27-33); Mean Corpuscular Volume 89.6 fl (82-101); Mean Platelet Volume 8.3 fL (7.4-10.4); Monocytes # 0.8 10^3/uL (0.2-0.9); Neutrophils # 5.78 10^3/uL (1.8-7.7); Neutrophils % 64.4 %; Nucleated Red Blood Cells % 0 %; Platelet Count 271 10^3/cmm (157-399); Red Blood Count 4.15 10^6/uL (3.85-5.65); Red Cell Distribution Width 14.3 % (12.1-15.1); White Blood Count 8.98 10^3/uL (3.29-11.43)
[2024-10-15 13:22] LABS: Alanine Aminotransferase 11 U/L (0-41); Alkaline Phosphatase 76 U/L (40-130); Anion Gap 15.3 (5-19); Aspartate Amino Transferase 12 U/L (0-40); Blood Urea Nitrogen 9 mg/dL (8-23); Calcium 9.3 mg/dL (8.5-10.5); Carbon Dioxide 26 mmol/L (22-29); Chloride 95 mmol/L (98-107); Globulin 2.8 g/dL (1.3-4.6); Glucose 131 mg/dL (65-115); Lactate Dehydrogenase 152 U/L (135-225); Osmolality Calculated 274 mOsm/kg (285-295); Potassium 4.3 mmol/L (3.5-5.1); Sodium 132 mmol/L (136-145); Total Bilirubin 0.5 mg/dL (0.15-1.2); Total Protein 6.8 g/dL (6.6-8.7)
== END 2024-11-11 23:59 | disposition home or self-care (01) ==
PROVIDERS: Internal Medicine; PCP Family Medicine; Visit Provider Internal Medicine Medical Oncology
DX: Z08 Encounter for follow-up examination after completed treatment for malignant neoplasm (principal); Z85.118 Personal history of other malignant neoplasm of bronchus and lung; Z95.828 Presence of other vascular implants and grafts; Z92.3 Personal history of irradiation; Z92.21 Personal history of antineoplastic chemotherapy; Z92.25 Personal history of immunosuppression therapy; E11.42 Type 2 diabetes mellitus with diabetic polyneuropathy; Z79.4 Long term (current) use of insulin; E78.5 Hyperlipidemia, unspecified; E03.9 Hypothyroidism, unspecified; I73.9 Peripheral vascular disease, unspecified
CPT/HCPCS: 36591; 80053; 83615; 85025; 99214

== ENCOUNTER 2024-11-12 13:10 | Oncology outpatient (recurring) (ONCR) | payer OTHER, SELFPAY | END 2024-12-12 23:59 | disposition home or self-care (01) | PROVIDERS: PCP Family Medicine; Visit Provider Internal Medicine Medical Oncology | DX: Z45.2 Encounter for adjustment and management of vascular access device (principal); Z95.828 Presence of other vascular implants and grafts | CPT/HCPCS: 96523 ==

== ENCOUNTER → 2024-11-18 09:07 | Outpatient (BNVA) | payer OTHER, SELFPAY | PROVIDERS: PCP Family Medicine; Visit Provider Student in an Organized Health Care Education/Training Program | DX: Z95.828 Presence of other vascular implants and grafts (principal) | CPT/HCPCS: 99204 ==

== ENCOUNTER → 2024-12-09 09:54 | Outpatient (BNVA) | payer OTHER, SELFPAY | PROVIDERS: PCP Family Medicine; Visit Provider Podiatrist Foot & Ankle Surgery | DX: E11.42 Type 2 diabetes mellitus with diabetic polyneuropathy (principal); L60.3 Nail dystrophy; L84 Corns and callosities; I73.9 Peripheral vascular disease, unspecified; M21.41 Flat foot [pes planus] (acquired), right foot; M21.42 Flat foot [pes planus] (acquired), left foot; M20.41 Other hammer toe(s) (acquired), right foot; M20.42 Other hammer toe(s) (acquired), left foot; Z79.4 Long term (current) use of insulin; Z79.84 Long term (current) use of oral hypoglycemic drugs | CPT/HCPCS: 11055; 11721 ==

== ENCOUNTER 2024-12-17 13:21 | Oncology outpatient (recurring) (ONCR) | payer OTHER, SELFPAY | END 2025-01-12 23:59 | disposition home or self-care (01) | PROVIDERS: PCP Family Medicine; Visit Provider Internal Medicine Medical Oncology | DX: Z45.2 Encounter for adjustment and management of vascular access device (principal); Z95.828 Presence of other vascular implants and grafts | CPT/HCPCS: 96523 ==

== ENCOUNTER 2024-12-18 07:19 | Day surgery (SDC) | payer OTHER, SELFPAY ==
[2024-12-18] VITALS (7 sets, daily range): BP systolic 140–159; BP diastolic 76–117; PULSE 84–95; RESP 16–18; TEMP 36.6–36.7; O2SAT 93–97; BMI 29.5
--- NOTE | 2024-12-18 07:32 | ECG_ITS ---
[facility] Test Date: 2024-12-18 Pat Name: Marbin Funez Department: Room: Gender: Male Senior Sourcing Manager: : 1945 Requested By: Dodie Abraham Order Number: [id number] Rony MD: Sharif Arias M.D. Measurements Intervals [place] Rate: 87 P: 95 MS: 185 QRS: 57 QRSD: 102 T: 51 QT: 353 QTc: 427 Interpretive Statements SINUS RHYTHM Compared to ECG 11/09/2020 15:05:53 No significant changes Electronically Signed On 12-18-2024 09:20:56 CDT by Sharif Arias M.D. [email or web address]
--- NOTE | 2024-12-18 09:05 | ANES.PREANE2 ---
Pre-Anesthetic Assessment Height/Weight: Height 1.78 m Weight 93.44 kg Temp Pulse Resp BP Pulse Ox O2 Del Method 97.9 F 91 18 155/90 93 Room Air 12/18/24 08:19 12/18/24 08:19 12/18/24 08:19 12/18/24 08:19 12/18/24 08:19 12/18/24 08:19 Operation Date: 12/18/24 09:00 Proposed Procedures p Portacath Removal 75256, Z95.828(Not Applicable) - Chinedu Wetzel MD Familial anesthetic complications: None Was Beta Kan taken within 24 hours: N/A Was Clonidine taken within 24 hours: N/A Last intake: Intake Last Liquid Date 12/17/24 Last Liquid Time 19:00 Last Solid Date 12/17/24 Last Solid Time 18:00 Social No alcohol and No tobacco Exam alert, oriented x 3, clear to auscultation bilaterally and regular rate & rhythm Airway Mallampati: Class IV Dentition: chipped and other (missing) Pulmonary Asthma Lung cancer CV/HEM Coronary Artery Disease (stents, holding plavix) Metabolic Diabetes Mellitus, Hyperlipidemia, Morbid Obesity and Thyroid Disease Anesthetic Plan ASA status: 4 Anesthesia: MAC Risk of > 500 ml blood loss (7ml/kg in children): No Medications/Allergies Home Medications ?Medication ?Instructions ?Recorded ?Confirmed ?Last Taken ?Type Sole supports #1 ea 09/18/19 12/09/24 Unknown Rx aspirin 81 mg tablet,delayed 81 mg PO DAILY@12 09/18/19 12/17/24 12/16/24 History release cholecalciferol (vitamin D3) 25 25 mcg PO DAILY@0730 09/18/19 12/17/24 08/12/24 07:30 History mcg (1,000 unit) capsule Custom orthotics #1 ea 11/20/19 12/09/24 Unknown Rx Diabetic shoes with custom inserts #1 ea 12/08/20 12/09/24 Unknown Rx cetirizine 10 mg tablet 10 mg PO DAILY 10/07/21 12/17/24 12/16/24 History isosorbide mononitrate 60 mg 90 mg PO QAM 10/07/21 12/17/24 12/17/24 History tablet,extended release 24 hr multivitamin 1 tab PO DAILY 10/07/21 12/17/24 12/17/24 History Diabetic Shoes with 3 sets of #1 ea 11/08/21 12/09/24 Unknown Rx insoles glucagon 1 mg solution for 1 mg SUBCUT Q20M PRN hypoglycemia 11/23/21 12/17/24 Unknown Rx injection (Glucagon Emergency Kit) #1 ea levothyroxine 75 mcg tablet 150 mcg PO DAILY 12/07/21 12/17/24 12/17/24 History insulin glargine 100 unit/mL (3 40 unit SUBCUT DAILY see pharmacy 01/14/22 12/17/24 12/17/24 History mL) subcutaneous pen comments hydrocortisone 2.5 % topical cream 1 applic topical BID #30 grams 02/01/22 12/17/24 Unknown Rx atorvastatin 80 mg tablet 40 mg (1/2 x 80 mg) PO QPM #45 tabs 04/06/22 12/17/24 12/16/24 Rx cilostazol 50 mg tablet 100 mg PO BID 09/15/22 12/17/24 12/16/24 History polyethylene glycol 3350 17 gram 17 g PO DAILY 10/13/22 12/17/24 12/17/24 History oral powder packet (Miralax) triamcinolone acetonide 0.025 % 1 applic topical BID #60 mL 11/02/22 12/17/24 Unknown Rx lotion guaifenesin 600 mg tablet, 600 mg PO .three times week #90 11/24/22 12/17/24 12/14/24 Rx extended release 12 hr tabs mometasone 100 mcg/actuation HFA 1 puff inhalation BID #13 grams 10/12/23 12/17/24 08/12/24 12:00 Rx aerosol inhaler gabapentin 100 mg capsule 100 mg PO TID #270 caps 12/11/23 12/17/24 12/17/24 Rx albuterol sulfate 90 mcg/actuation 1 inh inhalation QID 02/20/24 12/17/24 Unknown History aerosol inhaler clopidogrel 75 mg tablet 75 mg PO DAILY #90 tabs 03/07/24 12/17/24 12/11/24 Rx 2 Pairs of Custom Molded Orthotics #1 ea 03/15/24 12/09/24 Unknown Rx A5514 blood-glucose,boner meat,cont #1 ea 06/17/24 12/09/24 Unknown Rx (Dexcom G7 Disabilities Services Officer) diabetic shoes with custom inserts #1 ea 09/09/24 12/09/24 Unknown Rx blood-glucose sensor (Dexcom G7 #3 ea 10/15/24 12/09/24 Unknown Rx Sensor device) metformin 500 mg tablet,extended 500 mg PO BID #180 tabs 10/15/24 12/17/24 12/17/24 Rx release 24 hr losartan 50 mg tablet See Rx Instructions .Route 11/07/24 12/17/24 12/17/24 Rx .COMPLEX #135 tabs Diabetic Shoes with 3 inserts #1 ea 12/09/24 12/09/24 Unknown Rx Solu-Medrol (PF) 210 mg PO DIRECTED 12/17/24 12/17/24 12/17/24 History insulin aspart U-100 100 unit/mL 20 unit SUBCUT TID 12/17/24 12/17/24 12/17/24 History (3 mL) subcutaneous pen (Novolog FlexPen U-100 Insulin aspart) urea 40 % topical cream 1 applic topical PRN 12/17/24 12/17/24 Unknown History Allergies Allergy/AdvReac Type Severity Reaction Status Date / Time No Known Allergies Allergy Verified 12/09/24 09:59 Current Medications Generic Name Dose Route Start Last Admin Trade Name Freq PRN Reason Stop Dose Admin Sodium Chloride 1,000 mls @ 30 mls/hr 12/18/24 07:30 12/18/24 08:30 Sodium Chloride 0.9% IV 12/19/24 07:29 30 mls/hr .Q24H LEMUEL Administration PFSH Anesthesia Medical History (Updated 12/13/24 @ 14:39 by Joel Moncada DPM) Atherosclerosis of coronary artery Lung nodule Type 2 diabetes mellitus with diabetic polyneuropathy Bladder cancer PVD (peripheral vascular disease) Surgical History Port-A-Cath in place (04/01/20) H/O esophagogastroduodenoscopy (04/01/20) History of bronchoscopy History of bladder surgery History of surgical removal of pilonidal cyst H/O colonoscopy H/O heart artery stent Family History Other CAD (coronary artery disease) Cancer Diabetes Hyperlipidemia Hypertension Lung disease Denies family history of Clotting disorder Dementia Psychiatric illness Chronic kidney disease (CKD) Suicide Anesthesia complication Bleeding disorder Family history of premature coronary artery disease Stroke Social History Smoking and tobacco/nicotine status: former use of tobacco/nicotine Quit status (tobacco/nicotine): has quit using Year quit tobacco: 2007 - - PPD x 45 Years Alcohol intake: never Substance/Drug Use: never Lives independently: Yes Household members: spouse Marital status: service: Yes Current occupational status: retired Do you think of yourself as: Straight/Heterosexual Current gender identity: Male Data Anesthesia 12/18/24 08:45 BMP 12/18/24 08:11 Sodium Cancelled Potassium Cancelled Chloride Cancelled Carbon Dioxide Cancelled BUN Cancelled Creatinine Cancelled Glucose Cancelled Calcium Cancelled Cardiac Studies: Sestamibi Stress Test (Cardiology) 07/12/24 Stress Echocardiogram 02/18/21
[2024-12-18 09:06] LABS: Anion Gap 14.6 (5-19); Blood Urea Nitrogen 13 mg/dL (8-23); Calcium 9.7 mg/dL (8.5-10.5); Carbon Dioxide 26 mmol/L (22-29); Chloride 96 mmol/L (98-107); Creatinine Clr Calc Pharmacy 84.5583; Glucose 253 mg/dL (65-115); Osmolality Calculated 283 mOsm/kg (285-295); Potassium 4.6 mmol/L (3.5-5.1); Sodium 132 mmol/L (136-145)
[2024-12-18] MEDS: ceFAZolin 2,000 mg SDV 2000 MG IVP (10:00)
--- NOTE | 2024-12-18 10:03 | W.PM.OPSUD ---
Surgery/Procedure H&P Update DATE OF PROCEDURE: December 18, 2024 DATE H&P PERFORMED: 11/18/24 H&P UPDATE INFORMATION: I have reviewed H&P completed within last 30 days, I have examined patient prior to procedure and No changes to prior documentation PLANNED PROCEDURE: Operation Date: 12/18/24 09:00 Proposed Procedures p Portacath Removal 03107, Z95.828(Not Applicable) - Chinedu Wetzel MD
--- NOTE | 2024-12-18 10:27 | P.OP_ITS ---
Operative Report Date of procedure: December 18, 2024 Pre-op diagnosis: Port-A-Cath in place Post-op diagnosis: same Post-op findings: Left chest Port-A-Cath removed in its entirety. Sent tip for culture. Rest of catheter, cuff, and port sent to pathology. Procedure done: Port-A-Cath removal Implants: N/A Specimens removed/disposition: Tip of catheter sent to microbiology. Port, cuff, rest of catheter sent to pathology. Pathology: Tip of catheter sent to microbiology. Port, cuff, rest of catheter sent to pathology. Surgeon: Chinedu Wetzel MD Cloth Dyeing Range Tender: N/A Anesthesia: MAC Estimated blood loss (mL): 5 Complications: N/A Findings: Tip of catheter sent to microbiology. Port, cuff, rest of catheter sent to pathology. Condition: stable Disposition: same day Brief History: 79-year-old male who has a Port-A-Cath on his left chest. Not needed anymore. Discussed risk and benefits the patient agreed to proceed with Port-A-Cath removal. Procedure: Consent obtained in the preop area. SCDs on working. Ancef administered prior to incision. Local infiltration performed using 1% lidocaine 0.5% bupivacaine with epinephrine. Scalpel used to perform an incision at the port site. Electrocautery used to dissect down to the subcutaneous tissues. Port dissected out using electrocautery. I removed the port along with its cuff and the entire length of the catheter. Held pressure at the catheter tract for 2 minutes. Adequate hemostasis was achieved of the pocket using electrocautery. Tip of catheter sent to microbiology. Port, cuff, rest of catheter sent to pathology. Deep dermal layer closed using running 3-0 Vicryl. Skin closed using 4-0 Monocryl and surgical glue. The patient will come for anesthesia without any complications.
[2024-12-18] MEDS: lidocaine-epi 1% 20 mL INJ INJECTION (10:30)
[2024-12-18] MEDS: BUPivacaine 0.25% INJ 10 mL INJECTION (10:30)
--- NOTE | 2024-12-18 11:35 | ANE.PACU2 ---
Inpatient post-anesthesia follow up: Airway intact: Yes Vital signs: Temperature 98.0 F Pulse Rate 84 Respiratory Rate 16 Blood Pressure 151/89 Pulse Oximetry 94 Oxygen Delivery Me thod Room Air Oxygen Flow Rate Fraction of Inspir ed Oxygen Hydration adequate: Yes Nausea and vomiting: No Pain level: 1 Mental status: Baseline
== END 2024-12-18 11:35 | disposition home or self-care (01) ==
PROVIDERS: PCP Family Medicine; Visit Provider Student in an Organized Health Care Education/Training Program
PROC: (CPT 36589; principal; 2024-12-18 08:50)
DX: Z45.2 Encounter for adjustment and management of vascular access device (principal); J45.909 Unspecified asthma, uncomplicated; C34.90 Malignant neoplasm of unspecified part of unspecified bronchus or lung; I25.10 Atherosclerotic heart disease of native coronary artery without angina pectoris; Z95.5 Presence of coronary angioplasty implant and graft; E11.9 Type 2 diabetes mellitus without complications; E78.5 Hyperlipidemia, unspecified; E66.01 Morbid (severe) obesity due to excess calories; Z68.29 Body mass index [BMI] 29.0-29.9, adult; E07.9 Disorder of thyroid, unspecified; Z79.82 Long term (current) use of aspirin; Z79.4 Long term (current) use of insulin; Z79.84 Long term (current) use of oral hypoglycemic drugs; I73.9 Peripheral vascular disease, unspecified; Z87.891 Personal history of nicotine dependence
CPT/HCPCS: 36590; 36415; 36416; 80048; 82962; 87070; 87075; 87205; 88300; 93005; J0690; J2704; J3010; J3490; J7030; J9999

== ENCOUNTER 2024-12-23 09:28 | Emergency (ER) | payer OTHER, MEDICARE, SELFPAY ==
[2024-12-23 09:38] VITALS: BP 162/96; PULSE 94; RESP 18; TEMP 36.8; O2SAT 98; BMI 29.5
--- NOTE | 2024-12-23 09:52 | XRR_ITS ---
PROCEDURE INFORMATION: Exam: XR Abdomen Exam date and time: 12/23/2024 10:07 AM Age: 79 years old Clinical indication: Constipation TECHNIQUE: Imaging protocol: Radiologic exam of the abdomen. Views: 2 Views. Upright and supine views. COMPARISON: CT abdomen pelvis w con* [id number] 10/08/2024 12:56 PM FINDINGS: Gastrointestinal tract: Moderate stool is present within the colon. Intraperitoneal space: Normal. No free air. Bones/joints: Unremarkable for age. Soft tissues: Body habitus and radiographic technique causes some quantum mottling. This decreases resolution somewhat. XR/XR abdomen min 2V [id number] IMPRESSION: 1. No acute abdominal findings. 2. Moderate stool present within the colon.
--- NOTE | 2024-12-23 09:52 | W.ED.ABDPA2 ---
HPI - Abdominal Pain General: Chief Complaint: Abdominal Pain Stated Complaint: back pain, no bowel movement in 7 days Time Seen by Provider: 12/23/24 09:39 Source: patient Mode of arrival: ambulatory Limitations: no limitations History of Present Illness: Patient is an 79-year-old male who presents to ED today with complaint of constipation. Patient states he has not had a bowel movement in 7 days. He is passing flatulence. He states normally he has bowel movements daily. He is not complaining of much abdominal discomfort. He is continuing to eat normally. No vomiting. He does have some pain to his right lower back that has been present over the past 7 to 10 days. He currently is wearing a lidocaine patch. He states Tylenol will temporarily relieve some of his discomfort. [facility] and [facility] and Flexeril. He does not describe radicular symptoms into his lower extremity. Patient states he has taken MiraLAX as well as prescribed lactulose to help with the constipation but this has not produced a bowel movement. He does not take pain medications. MD elicited complaint: other (constipation) Pertinent past history: constipation Onset (ago): week(s) Location: None Radiation: none Migration to: no migration Exacerbating factors: nothing Relieving factors: nothing Associated Symptoms: Reports constipation; Denies chills, diarrhea, dysuria, fever(s), hematochezia, hematuria, melena, nausea and vomiting Related Data Home Medications ?Medication ?Instructions ?Recorded ?Confirmed aspirin 81 mg tablet,delayed 81 mg PO DAILY@12 09/18/19 12/17/24 release cholecalciferol (vitamin D3) 25 25 mcg PO DAILY@0730 09/18/19 12/17/24 mcg (1,000 unit) capsule cetirizine 10 mg tablet 10 mg PO DAILY 10/07/21 12/17/24 isosorbide mononitrate 60 mg 90 mg PO QAM 10/07/21 12/17/24 tablet,extended release 24 hr multivitamin 1 tab PO DAILY 10/07/21 12/17/24 levothyroxine 75 mcg tablet 150 mcg PO DAILY 12/07/21 12/17/24 insulin glargine 100 unit/mL (3 40 unit SUBCUT DAILY see pharmacy 01/14/22 12/17/24 mL) subcutaneous pen comments cilostazol 50 mg tablet 100 mg PO BID 09/15/22 12/17/24 polyethylene glycol 3350 17 gram 17 g PO DAILY 10/13/22 12/17/24 oral powder packet (Miralax) albuterol sulfate 90 mcg/actuation 1 inh inhalation QID 02/20/24 12/17/24 aerosol inhaler Solu-Medrol (PF) 210 mg PO DIRECTED 12/17/24 12/17/24 insulin aspart U-100 100 unit/mL 20 unit SUBCUT TID 12/17/24 12/17/24 (3 mL) subcutaneous pen (Novolog FlexPen U-100 Insulin aspart) urea 40 % topical cream 1 applic topical PRN 12/17/24 12/17/24 Previous Rx's ?Medication ?Instructions ?Recorded Sole supports #1 ea 09/18/19 Custom orthotics #1 ea 11/20/19 Diabetic shoes with custom inserts #1 ea 12/08/20 Diabetic Shoes with 3 sets of #1 ea 11/08/21 insoles glucagon 1 mg solution for 1 mg SUBCUT Q20M PRN hypoglycemia 11/23/21 injection (Glucagon Emergency Kit) #1 ea hydrocortisone 2.5 % topical cream 1 applic topical BID #30 grams 02/01/22 atorvastatin 80 mg tablet 40 mg (1/2 x 80 mg) PO QPM #45 tabs 04/06/22 triamcinolone acetonide 0.025 % 1 applic topical BID #60 mL 11/02/22 lotion guaifenesin 600 mg tablet, 600 mg PO .three times week #90 11/24/22 extended release 12 hr tabs mometasone 100 mcg/actuation HFA 1 puff inhalation BID #13 grams 10/12/23 aerosol inhaler gabapentin 100 mg capsule 100 mg PO TID #270 caps 12/11/23 clopidogrel 75 mg tablet 75 mg PO DAILY #90 tabs 03/07/24 2 Pairs of Custom Molded Orthotics #1 ea 03/15/24 A5514 blood-glucose,rn recovery,cont #1 ea 06/17/24 (Dexcom G7 Customer Service Consultant) diabetic shoes with custom inserts #1 ea 09/09/24 blood-glucose sensor (Dexcom G7 #3 ea 10/15/24 Sensor device) metformin 500 mg tablet,extended 500 mg PO BID #180 tabs 06/03/25 release 24 hr losartan 50 mg tablet See Rx Instructions .Route 11/07/24 .COMPLEX #135 tabs Diabetic Shoes with 3 inserts #1 ea 12/09/24 Allergies Allergy/AdvReac Type Severity Reaction Status Date / Time No Known Allergies Allergy Verified 12/09/24 09:59 Review of Systems Const: Denies: fever(s), chills, body aches, fatigue or malaise Card: Denies: chest pain Resp: Denies: dyspnea GI: Reports: constipation; Denies: abdominal pain, nausea, vomiting, diarrhea, hematochezia or melena : Denies: flank pain, difficulty urinating, dysuria, urinary frequency, urinary urgency, urinary hesitancy or hematuria Musc: Reports: back pain; Denies: neck pain, extremity pain, extremity swelling, joint pain, joint swelling or joint redness Skin/Breast: Denies: rash Neuro: Denies: headache(s), numbness in extremities, weakness in extremities, sensory changes or dizziness PFSH ED PFSH: Medical History Atherosclerosis of coronary artery Lung nodule Type 2 diabetes mellitus with diabetic polyneuropathy Bladder cancer PVD (peripheral vascular disease) Surgical History Port-A-Cath in place (04/01/20) H/O esophagogastroduodenoscopy (04/01/20) History of bronchoscopy History of bladder surgery History of surgical removal of pilonidal cyst H/O colonoscopy H/O heart artery stent Family History Other CAD (coronary artery disease) Cancer Diabetes Hyperlipidemia Hypertension Lung disease Denies family history of Clotting disorder Dementia Psychiatric illness Chronic kidney disease (CKD) Suicide Anesthesia complication Bleeding disorder Family history of premature coronary artery disease Stroke Social History Smoking and tobacco/nicotine status: former use of tobacco/nicotine Quit status (tobacco/nicotine): has quit using Year quit tobacco: 2007- PPD x 45 Years Alcohol intake: never Substance/Drug Use: never Lives independently: Yes Household members: spouse Marital status: service: Yes Current occupational status: retired Do you think of yourself as: Straight/Heterosexual Current gender identity: Male Physical Exam Const: COMMON NORMALS: no acute distress, average body habitus, patient oriented x3, no limitations, healthy appearing, alert and well nourished GENERAL APPEARANCE: cooperative ORIENTATION/CONSCIOUSNESS: Yes awake, Yes oriented to person, Yes oriented to place and Yes oriented to time Resp: COMMON NORMALS: normal respiratory effort and clear to auscultation bilaterally AUSCULTATION: clear to auscultation bilaterally Cardio: COMMON NORMALS: regular rate and regular rhythm RATE: regular rate RHYTHM: regular rhythm GI: COMMON NORMALS: Soft to palpation, non-tender and no masses AUSCULTATION: Yes Hypoactive bowel sounds present PALPATION: Yes Soft to palpation, No Tenderness to palpation present (GI), No Guarding due to palpation present (GI) and No Rigid due to palpation : COMMON NORMALS: Yes no CVA tenderness BLADDER/KIDNEY EXAM: Yes no CVA tenderness Back/Pelvis: COMMON NORMALS: no CVA tenderness, thoracic and lumbar spine normal to inspection, no thoracic nor lumbar tenderness, thoraco-lumbar ROM normal and straight leg raise negative bilaterally LUMBAR SPINE/LOWER BACK: Yes paraspinal muscle tenderness Lumbar paraspinal muscle tenderness: right PELVIS: Yes buttocks normal and No sciatic notch tenderness SACRUM: no tenderness COCCYX: no tenderness BACK IMAGE (MALE):  1. TTP; lidocaine patch present Extremity: COMMON NORMALS: normal to inspection GENERAL: Yes normal exam except as noted Neuro: COMMON NORMALS: patient oriented x3, moves all extremities, no focal motor deficits and no sensory deficits noted SENSORIUM/ORIENTATION: Yes alert, Yes oriented to person, Yes oriented to place and Yes oriented to time Skin: COMMON NORMALS: no rashes or lesions noted GENERAL SKIN EXAM: no rashes or lesions noted Course Vital Signs: Vital signs: Vital Signs Temperature 98.2 F 12/23/24 09:38 Pulse Rate 82 12/23/24 12:46 Respiratory Rate 18 12/23/24 09:38 Blood Pressure 127/76 12/23/24 12:46 Pulse Oximetry 98 12/23/24 12:46 Oxygen Delivery Me thod Room Air 12/23/24 10:42 MDM - Abdominal Pain Medical Decision Making Patient's vital signs are stable. Blood work overall is unremarkable showing a normal white count. He does have some hyponatremia. Looks like he has been hyponatremic over the past several months. UA is clear. CT scan showing diffuse constipation with probable ileus. Patient was given instructions regarding a clear liquid diet over the next 48 hours and slowly advancing to soft foods and into a normal diet as tolerated. Recommend he follow-up with his primary care provider later this week. Return to ED precautions discussed. Medical Records I reviewed the patient's medical records. Lab Data I reviewed the patient's lab results. 12/23/24 09:56 12/23/24 09:56 Labs/Radiology: Radiology Impressions Abdomen X-Ray 12/23/24 09:52 IMPRESSION: 1. No acute abdominal findings. 2. Moderate stool present within the colon. Abdomen/Pelvis CT 12/23/24 10:24 IMPRESSION: 1. Diffuse pancolonic constipation with gaseous distention. No transition point. Recommend correlation for adynamic ileus. 2. Small esophageal hernia. 3. Tiny appendicolith in the tip of the appendix with slight enhancement probably within normal limits. Recommend correlation for RIGHT lower quadrant pain. Appendix was previously air-filled 10/08/2024 4. Small esophageal hiatal hernia. 5. Fatty liver. 6. Urine distended bladder with bladder cystocele. Notified COLE Malone at 12/23/2024 11:08 AM. Laboratory Results WBC 10.62 10^3/uL (3.29-11.43) 12/23/24 09:56 RBC 4.38 10^6/uL (3.85-5.65) 12/23/24 09:56 Hgb 12.90 g/dL (11.27-16.99) 12/23/24 09:56 Hct 38.3 % (37-53) 12/23/24 09:56 MCV 87.4 fl (82-101) 12/23/24 09:56 MCH 29.5 pg (27-33) 12/23/24 09:56 MCHC 33.7 g/dL (30-55) 12/23/24 09:56 RDW 13.6 % (12.1-15.1) 12/23/24 09:56 Plt Count 258 10^3/cmm (157-399) 12/23/24 09:56 MPV 8.1 fL (7.4-10.4) 12/23/24 09:56 Neut % (Auto) 73.2 % 12/23/24 09:56 Lymph % (Auto) 13.3 % 12/23/24 09:56 Mobile % (Auto) 7.6 % 12/23/24 09:56 Eos % (Auto) 4.9 % 12/23/24 09:56 Baso % (Auto) 0.5 % 12/23/24 09:56 Neut # (Auto) 7.78 10^3/uL (1.8-7.7) H 12/23/24 09:56 Lymph # (Auto) 1.4 10^3/uL (0.8-4.8) 12/23/24 09:56 Mobile # (Auto) 0.8 10^3/uL (0.2-0.9) 12/23/24 09:56 Eos # (Auto) 0.5 10^3/uL (0.0-0.8) 12/23/24 09:56 Baso # (Auto) 0.1 10^3/uL (0.0-0.1) 12/23/24 09:56 Nucleated RBC % (auto) 0 % 12/23/24 09:56 Nucleated RBCs # 0.0 /100WBC 12/23/24 09:56 Sodium 126 mmol/L (136-145) L 12/23/24 09:56 Potassium 4.4 mmol/L (3.5-5.1) 12/23/24 09:56 Chloride 92 mmol/L (98-107) L 12/23/24 09:56 Carbon Dioxide 23 mmol/L (22-29) 12/23/24 09:56 Anion Gap 15.4 (5-19) 12/23/24 09:56 BUN 9 mg/dL (8-23) 12/23/24 09:56 Creatinine 0.6 mg/dL (0.7-1.2) L 12/23/24 09:56 GFR Calculation Not Reportable 12/23/24 09:56 Glucose 209 mg/dL (65-115) H 12/23/24 09:56 Calculated Osmolality 267 mOsm/kg (285-295) L 12/23/24 09:56 Calcium 9.2 mg/dL (8.5-10.5) 12/23/24 09:56 Total Bilirubin 0.4 mg/dL (0.15-1.2) 12/23/24 09:56 AST 10 U/L (0-40) 12/23/24 09:56 ALT 9 U/L (0-41) 12/23/24 09:56 Alkaline Phosphatase 72 U/L (40-130) 12/23/24 09:56 Total Protein 6.7 g/dL (6.6-8.7) 12/23/24 09:56 Albumin 3.9 g/dL (3.5-5.2) 12/23/24 09:56 Globulin 2.8 g/dL (1.3-4.6) 12/23/24 09:56 Urine Color Yellow (Yellow) 12/23/24 11:15 Urine Appearance Clear (CLEAR) 12/23/24 11:15 Urine pH 7.5 (5-7) 12/23/24 11:15 Ur Specific [place] 1.035 (1.005-1.030) H 12/23/24 11:15 Urine Protein Negative (Negative) 12/23/24 11:15 Urine Glucose (UA) Negative (Normal) 12/23/24 11:15 Urine Ketones Negative (Negative) 12/23/24 11:15 Urine Blood Negative (Negative) 12/23/24 11:15 Urine Nitrate Negative (Negative) 12/23/24 11:15 Urine Bilirubin Negative (Negative) 12/23/24 11:15 Urine Urobilinogen 1.0 mg/dL (Negative) 12/23/24 11:15 Ur Leukocyte Esterase Negative (Negative) 12/23/24 11:15 Urine RBC 0-2 /hpf (0-2) 12/23/24 11:15 Urine WBC 0-5 /hpf (0-5) 12/23/24 11:15 Ur Squamous Epith Cells 0-5 /hpf (0-5) 12/23/24 11:15 Amorphous Sediment Not Reportable 12/23/24 11:15 Urine Bacteria None seen /hpf (NONE) 12/23/24 11:15 Hyaline Casts 0-4 /lpf H 12/23/24 11:15 All radiology interpretation(s) finalized by discharge Discharge Plan Discharge Patient Disposition: Home Clinical Impression: Adynamic ileus Condition: Stable Prescriptions: No Action cholecalciferol (vitamin D3) 25 mcg (1,000 unit) capsule 25 mcg PO DAILY@0730 aspirin 81 mg tablet,delayed release (DR/EC) 81 mg PO DAILY@12 (DME) Sole supports Qty: 1 0RF Rx Instructions: As directed insulin glargine 100 unit/mL (3 mL) insulin pen 40 unit SUBCUT DAILY (DME) Custom orthotics See Rx Instructions .Route .MEDSUPPLY Qty: 1 0RF [facility] Inst[facility] Diabetic [facility] with custom inserts See Rx Instructions .Route .MEDSUPPLY Qty: 1 0RF Rx Instructions: As directed BY CORRINE&O levothyroxine 75 mcg tablet 150 mcg PO DAILY Rx Instructions: One by mouth daily Monday thru Monday, and none on Monday. cilostazol 50 mg tablet 100 mg PO BID (DME) Diabetic Shoes with 3 sets of insoles See Rx Instructions .Route .MEDSUPPLY Qty: 1 0RF Rx Instructions: As directed by CORRINE&O hydrocortisone 2.5 % cream 1 applic topical BID Qty: 30 2RF Rx Instructions: Apply to the top of the left foot Twice a day. triamcinolone acetonide 0.025 % lotion 1 applic topical BID Qty: 60 0RF clopidogrel 75 mg tablet 75 mg PO DAILY Qty: 90 3RF (DME) diabetic shoes with custom inserts See Rx Instructions .Route .MEDSUPPLY Qty: 1 0RF Rx Instructions: As directed to [facility] metformin 500 mg tablet extended release 24 hr 500 mg PO BID Qty: 180 1RF (DME) Dexcom G7 Sensor Device See Rx Instructions .Route Qty: 3 3RF Rx Instructions: change sensor every 10 days Glucagon Emergency Kit (human) 1 mg recon soln 1 mg SUBCUT Q20M PRN (Reason: hypoglycemia) Qty: 1 3RF Rx Instructions: until target blood sugar attained polyethylene glycol 3350 [Miralax] 17 gram powder in packet 17 g PO DAILY mometasone 100 mcg/actuation HFA aerosol inhaler 1 puff inhalation BID Qty: 13 0RF gabapentin 100 mg capsule 100 mg PO TID Qty: 270 3RF (DME) Diabetic Shoes with 3 inserts See Rx Instructions .Route .MEDSUPPLY Qty: 1 0RF Rx Instructions: As directed to the shoe trupti atorvastatin 80 mg tablet 40 mg PO QPM Qty: 45 3RF guaifenesin 600 mg tablet extended release 12hr 600 mg PO .three times week Qty: 90 3RF (DME) 2 Pairs of Custom Molded Orthotics A5514 See Rx Instructions .Route .MEDSUPPLY Qty: 1 0RF Rx Instructions: As directed [facility] (DME) Dexcom G7 Customer Service Consultant [facility] [place] See Rx Instructions .Route Qty: 1 0RF Rx Instructions: As directed losartan 50 mg tablet See Rx Instructions .ROUTE .COMPLEX Qty: 135 3RF Dose Instruction: TAKE ONE AND ONE-HALF TABLETS BY MOUTH ONCE A DAY Rx Instructions: TAKE ONE AND ONE-HALF TABLETS BY MOUTH ONCE A DAY isosorbide mononitrate 60 mg Tablet Extended Release 24 Hr 90 mg PO QAM cetirizine 10 mg Tablet 10 mg PO DAILY multivitamin Tablet 1 tab PO DAILY urea 40 % cream 1 applic topical PRN Solu-Medrol (PF) 210 mg PO DIRECTED insulin aspart U-100 [Novolog FlexPen U-100 Insulin] 100 unit/mL (3 mL) insulin pen 20 unit SUBCUT TID Rx Instructions: INJECT 20 UNITS UNDER THE SKIN THREE TIMES A DAY BEFORE MEALS ADMINISTER 10 MINUTES BEFORE FOOD DIRECTED. REFRIGERATE UN-OPENED PENS. DISCARD CARTRIDGE 28 DAYS AFTER OPENING. albuterol sulfate 90 mcg/actuation Hfa Aerosol Inhaler 1 inh INHALATION QID Discharge Orders: Discharge ED (Routine); Ordered 12/23/24 Ordered By: Mitzi Jaquez Referrals: Shavonne Biswas MD [Primary Care Provider, Family Practice] Patient Instructions: Ileus (ED), Patient Portal & [facility] Instructions Activity Restrictions/Additional Instructions: As we discussed, CT imaging today showing an ileus (slowing of your bowel/gut). An ileus is when the intestines slow down or stop moving for a short time, which can cause bloating, nausea, or not passing gas or stool.? Most people improve with time and supportive care. What to expect ? Mild belly bloating, less appetite, or nausea can continue for a few days and should steadily improve. ? Passing gas is a good sign. Bowel movements may take longer to return to normal. ? Call the care team if symptoms are getting worse instead of better. Eating and drinking ? Start with small, frequent sips of clear fluids (you should do this for about 48 hours) and then advance to soft foods, then a normal diet as tolerated. This may take several days. ? Aim for at least 6?8 cups (1.5?2 liters) of fluid daily unless given a different goal. ? If nausea increases after eating, pause, go back to liquids, and retry small amounts later. ? It is normal for bowel movements to be irregular for a short time. Do not strain. ? Passing gas is a positive sign. Keep walking, drinking fluids, and using gum. When to return to the emergency department ? Increasing belly pain or swelling, repeated vomiting, or inability to keep fluids down. ? No gas or bowel movement plus worsening bloating or pain. ? Fever (temperature 100.4?F/38?C or higher), chills, or signs of wound infection (redness, warmth, drainage). Print Language: Sudanese Coding Level of Care Code ED Financial Specialist for Carmen Rosas
[2024-12-23 10:03] LABS: Hematocrit 38.3 % (37-53); Hemoglobin 12.90 g/dL (11.27-16.99); Mean Corpuscular HGB Conc 33.7 g/dL (30-55); Mean Corpuscular Hemoglobin 29.5 pg (27-33); Mean Corpuscular Volume 87.4 fl (82-101); Nucleated Red Blood Cells % 0 %; Platelet Count 258 10^3/cmm (157-399); Red Blood Count 4.38 10^6/uL (3.85-5.65); White Blood Count 10.62 10^3/uL (3.29-11.43)
[2024-12-23 10:19] LABS: Alanine Aminotransferase 9 U/L (0-41); Albumin Level 3.9 g/dL (3.5-5.2); Alkaline Phosphatase 72 U/L (40-130); Anion Gap 15.4 (5-19); Aspartate Amino Transferase 10 U/L (0-40); Blood Urea Nitrogen 9 mg/dL (8-23); Calcium 9.2 mg/dL (8.5-10.5); Carbon Dioxide 23 mmol/L (22-29); Chloride 92 mmol/L (98-107); Creatinine Clr Calc Pharmacy 84.5583; Globulin 2.8 g/dL (1.3-4.6); Glucose 209 mg/dL (65-115); Osmolality Calculated 267 mOsm/kg (285-295); Potassium 4.4 mmol/L (3.5-5.1); Sodium 126 mmol/L (136-145); Total Protein 6.7 g/dL (6.6-8.7)
--- NOTE | 2024-12-23 10:24 | CT_ITS ---
WS: [id number] CT ABDOMEN PELVIS TECHNIQUE: Contrast-enhanced CT of the abdomen and pelvis with coronal and sagittal reformatted images. CLINICAL INFORMATION: abdominal distention, back pain, constipation x 1 wk COMPARISON: CT 10/08/2024 DLP: 882.[address] scans at [facility] use at least one of these dose optimization techniques: automated exposure control; mA and/or kV adjustment per patient size (includes targeted exams where dose is matched to clinical indication); or iterative reconstruction. FINDINGS: Lung bases are well aerated. Small esophageal hiatal hernia. Fatty liver. Normal portal vein and splenic vein. Normal gallbladder. Fatty atrophy of the pancreas. Splenic artery calcifications. Spleen granulomas. Normal renal parenchymal enhancement. No hydronephrosis. Adrenal glands are normal. Aortic calcification. Urine distended bladder. Bladder cystocele. Tortuous sigmoid colon. Diffuse pancolonic constipation with colonic distention and air distention. Normal small bowel. Sigmoid colon constipation. Tiny appendicolith in the appendix. Small amount of fluid and enhancement of the appendix measuring [address]/CT abdomen pelvis w con* [id number] IMPRESSION: 1. Diffuse pancolonic constipation with gaseous distention. No transition poin t. Recommend correlation for adynamic ileus. 2. Small esophageal hernia. 3. Tiny appendicolith in the tip of the appendix with slight enhancement proba thomas within normal limits. Recommend correlation for RIGHT lower quadrant pain. Appendix was previously air-filled 10/08/2024 4. Small esophageal hiatal hernia. 5. Fatty liver. 6. Urine distended bladder with bladder cystocele. Notified COLE Malone at 12/23/2024 11:08 AM.
[2024-12-23 10:42] VITALS: BP 127/77; PULSE 87; O2SAT 93
[2024-12-23] MEDS: iohexol 350 mg/mL 500 mL Btl (per mL) IV (10:43)
[2024-12-23 11:22] LABS: Glucose Urine UA Negative (Normal); Nitrate Urine Negative (Negative)
[2024-12-23 11:27] LABS: Add Urine Microscopic? YES
[2024-12-23 11:29] LABS: Specific Gravity, Urine 1.035 (1.005-1.030)
[2024-12-23] MEDS: Fleet Enema 133 mL Enema PR (11:47)
[2024-12-23 12:46] VITALS: BP 127/76; PULSE 82; O2SAT 98
--- OUTSIDE RECORDS SUMMARY | 2024-12-25 09:00 | XMS_ITS | Encounter Summary ---
Author Organization [facility] Address [address] [place] [address] Care Team Providers Care Crozer Name Role Phone Unavailable Primary Care Provider Unavailabl e Reason for Referral * PET Scan (Urgent) - Closed Specialty Diagnoses / Procedures Referred By Contac t Referred To Contact Radiology Diagnoses Malignant neoplasm of upper lobe, right bronchus or lung (CMS/HCC) Procedures PET TUMOR IMG W CT SKL BSE MID THG Nuno Campbell MD [address] [place] [phone] Phone: tel: fax: [facility] Nuclear Medicine [address] [place] [phone] Phone: tel: fax: Referral ID Status Reason Start Date Expiration Date V isits Requested Visits Authorized [id number] Closed [facility] CTS to Schedule 03/02/2020 04/02/2021 1 1 Encounter Details Date Type Department Care Team (Late st Contact Info) Description 03/02/2020 Ancillary Orders [facility] Pre-Registration Mereta CALL TO MAKE APPOINTMENT ONLY [address] [place] [address] Nuno Campbell MD [address] [place] [phone] Malignant neoplasm of upper lobe, right bronchus or lung (CMS/HCC) Social History Tobacco Use Types Packs/Day Years Used Date Smoking Tobacco: Never Assessed Sex and Gender Information Value Date Recorded Sex Assigned at Not on file Legal Sex Male 10:53 AM CDT Gender Identity Not on file Sexual Orientation Not on file COVID-19 Exposure Response Date Recorded In the last month, have you been in contact with someone who was confirmed or suspected to have Coronavirus / COVID-19? No / Unsure 03/02/2020 5:58 PM CDT documented as of this encounter Plan of Treatment Not on file documented as of this encounter Results * PET TUMOR IMG W CT SKL BSE MID THG (03/10/2020 3:13 PM CDT) Anatomical Region Laterality Modality Nuclear Medicine 03/10/2020 3:13 PM CDT Impressions 03/10/2020 3:52 PM CDT IMPRESSION: Abnormal examination. 1. There is marked increase of metabolic activity in the known right lung upper lobe mass consistent with neoplasia. 2. Extensive hilar and mediastinal lymph node involvement as above. 3. No strong evidence for distant metastatic involvement with a single rib finding likely reflecting prior fracture which may be confirmed clinically. Narrative 03/10/2020 3:52 PM CDT Radionuclide PET Metabolic Tumor Imaging with CT Attenuation Correction and Anatomic Localization from Skull Base to Mid Thigh: Radiopharmaceutical: S-[id number] Dose: 13.2 mCi right forearm IV Time of Injection: 1335 hrs BMI: Not available Clinical Indication: Initial treatment strategy to evaluate malignant neoplasm of the right lung upper lobe for staging examination FDG (Y-24-[id number]) PET imaging was performed at 1422 hrs approximately 47 minutes following intravenous infusion of the radiopharmaceutical agent using an integrated 16-slice PET/CT scanner. A noncontrast CT scan was performed for attenuation correction of PET data and for anatomic localization. No contrast was administered. Imaging was performed from the skull base to mid thigh levels with subsequent reconstruction of full trunk, orthogonal view slices in transverse, sagittal, and coronal projections which were reviewed along with dynamic multiimage planar and non attenuation corrected sagittal views. Blood glucose at the time of tracer injection was 175 mg/dl in this diabetic patient with normal biodistribution of tracer. The quality of this examination is acceptable with regards to count density, processed images, data display and lack of important artifacts (including but not limited to motion and attenuation artifacts). No previous PET/CT examination. Head/Neck: No lesions Thorax: Mediastinal blood pool maximum SUV is 3.23. There is extensive mediastinal lymph node involvement of anterior/prevascular lymph nodes, right paratracheal, precarinal with an index lesion selected at image 83 measuring 1.4 x 2.0 cm with a maximum SUV value of 6.75 and right hilar lymph nodes. There is calcification of right hilar and bronchial lymph node basins. There is calcification of both right and left coronary arteries. The known spiculated mass in the anterior right upper lobe measures 2.6 x 3.2 cm demonstrating a maximum SUV value of 10.30. No other pulmonary nodularity is identified. Abdomen/Pelvis: The liver demonstrates a maximum SUV value of 3.65. Unremarkable adrenal glands, liver/spleen, pancreas and kidneys. No lymphadenopathy or focal increase of metabolic activity. The prostate is moderately enlarged with no focal increase of metabolic activity. Musculoskeletal: The right 10th rib laterally demonstrates an apparent fracture with callus formation and increased metabolic activity with a maximal SUV value of 2.53 observed on image 151. No other osseous or muscle lesions. Procedure Note Jacob Arroyo MD - 03/10/2020 Radionuclide PET Metabolic Tumor Imaging with CT Attenuation Correction and Anatomic Localization from Skull Base to Mid Thigh: Radiopharmaceutical: A-61-[id number] Dose: 13.2 mCi right forearm IV Time of Injection: 1335 hrs BMI: Not available Clinical Indication: Initial treatment strategy to evaluate malignant neoplasm of the right lung upper lobe for staging examination FDG (P-38-Bpvxowklcnerkxgqvc) PET imaging was performed at 1422 hrs approximately 47 minutes following intravenous infusion of the radiopharmaceutical agent using an integrated 16-slice PET/CT scanner. A noncontrast CT scan was performed for attenuation correction of PET data and for anatomic localization. No contrast was administered. Imaging was performed from the skull base to mid thigh levels with subsequent reconstruction of full trunk, orthogonal view slices in transverse, sagittal, and coronal projections which were reviewed along with dynamic multiimage planar and non attenuation corrected sagittal views. Blood glucose at the time of tracer injection was 175 mg/dl in this diabetic patient with normal biodistribution of tracer. The quality of this examination is acceptable with regards to count density, processed images, data display and lack of important artifacts (including but not limited to motion and attenuation artifacts). No previous PET/CT examination. Head/Neck: No lesions Thorax: Mediastinal blood pool maximum SUV is 3.23. There is extensive mediastinal lymph node involvement of anterior/prevascular lymph nodes, right paratracheal, precarinal with an index lesion selected at image 83 measuring 1.4 x 2.0 cm with a maximum SUV value of 6.75 and right hilar lymph nodes. There is calcification of right hilar and bronchial lymph node basins. There is calcification of both right and left coronary arteries. The known spiculated mass in the anterior right upper lobe measures 2.6 x 3.2 cm demonstrating a maximum SUV value of 10.30. No other pulmonary nodularity is identified. Abdomen/Pelvis: The liver demonstrates a maximum SUV value of 3.65. Unremarkable adrenal glands, liver/spleen, pancreas and kidneys. No lymphadenopathy or focal increase of metabolic activity. The prostate is moderately enlarged with no focal increase of metabolic activity. Musculoskeletal: The right 10th rib laterally demonstrates an apparent fracture with callus formation and increased metabolic activity with a maximal SUV value of 2.53 observed on image 151. No other osseous or muscle lesions. IMPRESSION: Abnormal examination. 1. There is marked increase of metabolic activity in the known right lung upper lobe mass consistent with neoplasia. 2. Extensive hilar and mediastinal lymph node involvement as above. 3. No strong evidence for distant metastatic involvement with a single rib finding likely reflecting prior fracture which may be confirmed clinically. Nuno Campbell MD PE ORDERABLES Final Result documented in this encounter Visit Diagnoses Diagnosis Malignant neoplasm of upper lobe, right bronchus or lung (CMS/HCC) Malignant neoplasm of upper lobe, right bronchus or lung (CMS/HCC) documented in this encounter
--- OUTSIDE RECORDS SUMMARY | 2024-12-25 09:00 | XMS_ITS | Clinical Summary ---
Author Organization [facility] Address [address] [place] [address] Phone Care Team Providers Care Engineering Laboratory Technician Name Role Phone Unavailable Primary Care Provider Unavailabl e Allergies No known active allergies Medications acarbose (PRECOSE) 100 mg tablet Take 100 mg by mouth 3 times daily with meals. Active aspirin (ABBY CHEWABLE) 81 mg Tablet, Chewable Take 81 mg by mouth daily. Active atorvastatin (LIPITOR) 40 mg tablet Take 40 mg by mouth daily at bedtime. Active cetirizine (ZyrTEC) 10 mg tablet Take 10 mg by mouth daily. Active cholecalciferol , vitamin D3, 1,000 unit Take by mouth daily. Active Eliquis 2.5 mg tablet Take 2.5 mg by mouth 2 times daily. Active CILOSTAZOL ORAL Take 25 mg/day by mouth 2 times daily. Active clopidogreL (PLAVIX) 75 mg Tablet Take 75 mg by mouth daily. Active hydroCHLOROthia zide 25 mg tablet Take 25 mg by mouth daily. Active insulin aspart (NovoLOG) 100 unit/mL injection Inject 5 Units by subcutaneous injection 3 times daily with meals. Active insulin glargine (LANTUS) 100 unit/mL injection Inject 35-45 Units by subcutaneous injection one time only. Active lisinopriL (PRINIVIL) 20 mg tablet Take 20 mg by mouth daily. Active metFORMIN (GLUCOPHAGE) 850 mg tablet Take 850 mg by mouth 3 times daily with meals. Active Active Problems Problem Noted Date Diagnosed Date Arteriovenous fistula 10/01/2020 Compartment syndrome of right lower extremity Atherosclerosis of [place] ar teries of extremity with rest pain 10/01/2020 Social History Tobacco Use Types Packs/Day Years Used Date Smoking Tobacco: Former Cigarettes Q uit: 09/12/2006 Alcohol Use Standard Drinks/Week Comments Never 0 (1 standard drink = 0.6 oz pur e alcohol) Sex and Gender Information Value Date Recorded Sex Assigned at Not on file Legal Sex Male 10:53 AM CDT Gender Identity Not on file Sexual Orientation Not on file Last Filed Vital Signs Vital Sign Reading Time Taken Comments Blood Pressure 126/64 10/27/2020 1:48 PM CDT Pulse 100 10/27/2020 1:48 PM CDT Temperature 36.8 C (98.2 F) 10/03/2020 11:39 AM CDT Respiratory Rate 20 10/03/2020 11:39 AM CDT Oxygen Saturation 96% 10/27/2020 1:48 PM CDT Inhaled Oxygen Concentration - - Weight 85.3 kg (188 lb) 10/27/2020 1:48 PM CDT Height 177.8 cm (5' 10 ) 10/27/2020 1:48 PM CDT Body Mass Index 26.98 10/27/2020 1:48 PM CDT Plan of Treatment Health Maintenance Due Date Last Done Comments DTAP/TDAP/TD VACCINES (1 - Tdap) 10/06/1963 PNEUMOCOCCAL VACCINE 50+ YEARS (1 of 1 - PCV) 10/05/18 95 ZOSTER VACCINE (1 of 2) 1994 RSV VACCINE (60+ or ) (1 - 1-dose 75+ series) 10/06/2019 INFLUENZA VACCINE (#1) 2024 Medical Devices Implanted Type Area Bushing And Broach Operator Device Identifier Shelf Expiration Date Model / Serial / Lot Angio-Seal Vip Closure Dev [id number] - [id number] Implanted:Qty: 1 on 10/01/2020 at [facility] Closure Device Right: Groin [employer] 07/12/2021 [id number] / / [id number] Stent Viabahn Hep [id number] - [id number] Implanted:Qty: 1 on 10/01/2020 at [facility] Stent Right: Sol Medei[employer] 07/20/2023 [id number] / [id number] / Stent Synergy Mr 4.0x32mm Drug Elut [id number] - [id number] Implanted:Qty: 1 on 10/01/2020 by Joseph Montalvo MD at [facility] Stent Right: Leg [employer] 01/28/2022 [id number] / / [id number] Stent Vasc Alva [id number] - [id number] Implanted:Qty: 1 on 10/01/2020 at [facility] Stent Right: Leg [employer] 01/30/2022 [id number] / / [id number] Insurance MEDICARE PART A AND B RX [employer] RX Member Subscriber Plan / Payer (Ef fective for All Dates) Name:RandycarissaMarbin Relation to Subscriber:Self Name:ENMA FUNEZJANAE CORDERO Payer ID:Not on file Type:RX Commercial Address: [place] [facility] [facility] [place] [id number] Advance Directives For more information, please contact: [phone] * Full Code (Latest Code Status on File) Date Activated Date Inactivated Comments 10/01/2020 11:52 AM 10/03/2020 7:18 PM
--- OUTSIDE RECORDS SUMMARY | 2024-12-25 09:00 | XMS_ITS | Patient Health Record ---
Author Organization [facility] Address [address] [place] [address] Care Team Providers Care Telecommunications Clerk Name Role Phone [facility] Primary Care Provider Unav ailable Robert Phillips Unavailable [phone] [place], [place] Unavailable Unavailable Jonas Caldwell Unavailable [phone] Allergies No Known Allergies Reason For Referral Reason malignant neoplasm o f upper lobe, bronchus of lung: [facility] - Scheduled Diagnosis 1 Malignant neoplasm o f upper lobe, right bronchus or lung (C34.11) Referring Provider First Name Jose Antonio Jean Baptisteu Referring Provider Last Name [place] Referring Provider Speciality [facility] Referred Organization [facility] Referred Provider Robert Phillips Referred Address [address] [place],[place], [place],[address],[place] Referred Provider Specialty Pulmonary Di seases General Notes Svitlana Casper 05/06 04:28:32 PM >04/25-JAYCE @ [facility] to get imaging info., Svitlana Casper 05/13/2024 03:37:02 PM >Email from Lucero @ [facility]- he is a cancer patient at [facility] oncology. Joanna in the cancer center at [facility] states they can cloud share to you guys but Jessica has to do it. She will be returning on Monday05/20/2024. He's had CT chests in 04/07, Pet08/05, more CTs of chest done 12/[address] on 08/04 that will all be sent over as next week., Svitlana Casper 05/20/2024 04:31:35 PM >Images received via [email or web address] Meranda 05/20/2024 04:53:40 PM >LVM for [facility] medical records for the reports of the images, Svitlana Casper 05/21/2024 09:04:48 AM >Received Reports for imaging., Svitlana Casper 05/21/2024 02:08:37 PM >Scheduled 05/29/2024 @ 10:30 AM Referral Priority Routine Medications Medication SIG (Take, Route, Frequency, Duration) Notes Start Date End Date Status Gabapentin 100 MG Capsule 1 capsule at bedtime Orally three times a day Active guaiFENesin ER 600 MG Tablet Extended Release 12 Hour 1 tablet as needed Orally three times a week Active Glucagon Emergency 1 MG Kit as directed Injection Active Isosorbide Mononitrate ER 60 MG Tablet Extended Release 24 Hour 1 tablet in the morning Orally Once a day Active Hydrocortisone 2.5 % Cream 1 application Externally Once a day Active Levothyroxine Sodium 75 MCG Tablet 1 tablet in the morning on an empty stomach Orally Once a day Active Isosorbide Mononitrate ER 30 MG Tablet Extended Release 24 Hour 1 tablet in the morning Orally Once a day Active Mometasone Furo-Formoterol Fum 100-5 MCG/ACT Aerosol as directed Inhalation Active Metoclopramide 10 MG Oral Tablet Metoclopramide 10 MG Oral Tablet 04/08/2019 Not-Taking Losartan Potassium 50 MG Tablet 1 1/2 tablet Orally Once a day Active Acarbose 100 MG Oral Tablet Acarbose 100 MG Oral Tablet 04/08/2019 Not-Taking Lisinopril 40 MG Oral Tablet Lisinopril 40 MG Oral Tablet 04/08/2019 Not-Taking Multivitamin - Tablet 1 tablet Orally Once a day Active Metformin hydrochloride 850 MG Oral Tablet Metformin hydrochloride 850 MG Oral Tablet 04/08/2019 Not-Taking Insulin, Aspart, Human 100 UNT/ML Injectable Solution Insulin, Aspart, Human 100 UNT/ML Injectable Solution 04/08/2019 Not-Taking Albuterol Sulfate HFA 108 (90 Base) MCG/ACT Aerosol Solution 2 puffs as needed Inhalation every 4-6 hrs as needed; Duration: 90 days Active Stiolto Respimat 2.5-2.5 MCG/ACT Aerosol Solution 2 puffs Inhalation Once a day; Duration: 90 days Active cilostazol 50 MG Oral Tablet cilostazol 50 MG Oral Tablet 04/08/2019 Active Insulin Glargine 100 UNT/ML Injectable Solution Insulin Glargine 100 UNT/ML Injectable Solution 04/08/2019 Active Aspirin Adult Low Dose 81 MG Tablet Delayed Release 1 tablet Orally Once a day Active Clopidogrel Bisulfate 75 MG Tablet 1 tablet Orally Once a day Active Cetirizine HCl 10 MG Tablet 1 tablet Orally Once a day Active Atorvastatin Calcium 80 MG Tablet 1 tablet Orally Once a day Active Polyethylene Glycol - Powder as directed Active Empagliflozin 25 MG Tablet 1 tablet Orally Once a day Active Cholecalciferol 25 MCG (1000 UT) Capsule 1 capsule Orally Once a day Active Urea 40 % Cream 1 application as needed Externally Once a day Active Triamcinolone Acetonide 0.025 % Cream 1 application Externally Once a day Active Immunizations Vaccine Route Administration Date Status Comme nts Influenza (whole), CPT 83259 Inactive Unknown 03/01/2019 Administered Social History Tobacco Use: Social History Observation Description Date Details (start date - stop date) Former Smoker NA - NA Social History Tobacco Use: Social Info Question Answer Notes Tobacco Control (Standard) Tobacco use: Former smoker How long has it been since you last smoked? 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) Active confirmed Problem Chronic respiratory failure (98311831) Chronic hypoxic respiratory failure (J96.11) Active confirmed Vital Signs Heart Rate 102 /min 10/17/2024 Temperature 97.6 degrees Fahrenheit 10/17/2024 Respiratory Rate 20 /min 10/17/2024 Blood pressure diastolic 75 mm Hg 10/17/2024 Oximetry 96 % 10/17/2024 Weight-kg 95.2 kg 10/17/2024 Height 69 in 10/17/2024 Blood pressure systolic 147 mm Hg 10/17/2024 Weight 209.88 lbs 10/17/2024 BMI 30.99 kg/m2 10/17/2024 Procedures Procedure Date Ordered Date Performed Result Body Sit e SIX MINUTE WALK 05/29/2024 N/A PFT with FRC: (NO TGV) 05/29/2024 N/A PFT with FRC: (NO TGV) 05/30/2024 05/30/2024 N/A SIX MINUTE WALK 07/08/2024 07/08/2024 N/A Encounters Encounter Location Date Provider Diagnosis [facility] [address] [place] [address] 10/17/2024 Robert Phillips Shortness of breath R06.02 ; Stage 2 moderate COPD by GOLD classification J44.9 ; Malignant neoplasm of upper lobe, right bronchus or lung C34.11 ; Former smoker Z87.891 ; DINESH (obstructive sleep apnea) G47.33 and Chronic cough R05.3 [facility] [address] [place] [address] 07/08/2024 Robert Phillips Shortness of breath R06.02 ; Stage 2 moderate COPD by GOLD classification J44.9 ; Malignant neoplasm of upper lobe, right bronchus or lung C34.11 ; Former smoker Z87.891 and DINESH (obstructive sleep apnea) G47.33 [facility] [address] [place] [address] [place] [address] 05/29/2024 Robert Phillips Shortness of breath R06.02 ; Malignant neoplasm of upper lobe, right bronchus or lung C34.11 ; Former smoker Z87.891 and DINESH (obstructive sleep apnea) G47.33 [facility] [address] [place] [address] [place] [address] 05/30/2024 Robert Phillips Shortness of breath R06.02 [facility] [address] [place] [address] 07/08/2024 Robert Phillips Shortness of breath R06.02 [facility] [address] [place] [address] [place] [address] 08/05/2024 Robert Phillips [facility] [address] [place] [address] [place] [address] 05/30/2024 Robert [facility] [address] [place] [address] [place] [address] 03/27/2024 Jonas Caldwell Assessments Encounter Date Diagnosis (ICD Code) Assessment Notes Treatment Notes Treatment Clinical Notes Section Notes 05/29/2024 Shortness of breath (ICD-10 - R06.02) Patient was being treated for COPD in [place], [place]. Continue Albuterol HFA. Hold Stiolto. I will give him a sample of Trelegy and Breztri. -Obtain PFT and 6MW 05/29/2024 Malignant neoplasm of upper lobe, right bronchus or lung (ICD-10 - C34.11) Patient currenlty following Oncology in [place], [place]. Obtain repeat chest CT March 18, 2025. 05/30/2024 Shortness of breath (ICD-10 - R06.02) 07/08/2024 Shortness of breath (ICD-10 - R06.02) 07/08/2024 Shortness of breath (ICD-10 - R06.02) 07/08/2024 Stage 2 moderate COPD by GOLD classification (ICD-10 - J44.9) Stage II COPD Continue Albuterol HFA. Continue Stiolto No benefit from Trelegy or Breztri. 10/17/2024 Shortness of breath (ICD-10 - R06.02) 10/17/2024 Stage 2 moderate COPD by GOLD classification (ICD-10 - J44.9) Stage II COPD Continue Albuterol HFA. Continue Stiolto No benefit from Trelegy or Breztri. I told him he may take liquid Mucinex. 10/17/2024 Malignant neoplasm of upper lobe, right bronchus or lung (ICD-10 - C34.11) Patient currenlty following Oncology in [place], [place]. Obtain repeat chest CT March 2025. 07/08/2024 Malignant neoplasm of upper lobe, right bronchus or lung (ICD-10 - C34.11) Patient currenlty following Oncology in [place], [place]. Obtain repeat chest CT March 18, 2025. 05/29/2024 Former smoker (ICD-10 - Z87.891) Patient smoked 2 vutdy-jwn-mdx for 49 years. He has been abstinent since he was 62 years old. 05/29/2024 DINESH (obstructive sleep apnea) (ICD-10 - G47.33) Patient states he has sleep apnea and uses oxygen at night. 07/08/2024 Former smoker (ICD-10 - Z87.891) Patient smoked 2 bazlk-zhi-fyu for 49 years. He has been abstinent since he was 62 years old. 10/17/2024 Former smoker (ICD-10 - Z87.891) Patient smoked 2 eyqac-fpt-fhq for 49 years. He has been abstinent since he was 62 years old. 10/17/2024 DINESH (obstructive sleep apnea) (ICD-10 - G47.33) Patient states he has sleep apnea and uses oxygen at night. 07/08/2024 DINESH (obstructive sleep apnea) (ICD-10 - G47.33) Patient states he has sleep apnea and uses oxygen at night. 10/17/2024 Chronic cough (ICD-10 - R05.3) He may take Mucinex BID 05/29/2024 Other Nadiya Blood am scribing for, and in the presence of Dr. Robert Phillips. Caitie, Dr. Robert Phillips, personally performed the services described in this documentation, as scribed by Nadiya Lujan in my presence, and it is both accurate and complete. 07/08/2024 Other Nadiya Blood am scribing for, and in the presence of Dr. Robert Phillips. Dr. Robert Blood, personally performed the services described in this documentation, as scribed by Nadiya Lujan in my presence, and it is both accurate and complete. 10/17/2024 Other Nadiya Blood am scribing for, and in the presence of Dr. Robert Phillips. Dr. Robert Blood, personally performed the services described in this documentation, as scribed by Nadiya Lujan in my presence, and it is both accurate and complete. Plan Of Treatment Pending Test Test Name Order Date SIX MINUTE WALK 05/29/2024 PFT with FRC: (NO TGV) 05/29/2024 Future Test Test Name Order Date CT Chest w/o Contrast diagnostic-62213 1 Next Appt Details Provider Name:Robert Phillips, 03/24/2025 01:10:00 PM, [address] [place] [address] [address], [place], [address], Insurance Providers Payer Name Payer Address Payer Phone Subscriber Number Group Number Insured Name Patient Relationship to Insured Coverage Start Date Coverage End Date [employer] [address] [place] [phone] [id number] NOAH FUNEZ Self - patient is the insured Medical (General) History Medical History History ICD Code Chronic Obstructive Pulmonary Disease Coronary arteriosclerosis Diabetes mellitus Hyperlipidemia Problem:Hypertensive disorder, systemic arterial Sleep apnea Surgical History Surgery Date(Month/Year) Vascular calf leg 12.18.24 Heart 2023,2010 Vascular right leg 2021 Bladder 2007 Vascular 2020 Hospitalization History Reason Date(Month/Year) See Sx HX
--- OUTSIDE RECORDS SUMMARY | 2024-12-25 09:00 | XMS_ITS | Clinical Summary ---
Author Organization [facility] Address [address] [place] [address] Phone Care Team Providers Care Airport Operations Specialist Name Role Phone Unavailable Primary Care Provider Unavailabl e Allergies No known active allergies Medications cholecalciferol , vitamin D3, 1,000 unit Take by mouth daily. 1 Active CILOSTAZOL ORAL Take 25 mg/day by mouth 2 times daily. 1 Active insulin glargine (LANTUS) 100 unit/mL injection Inject 35-45 Units by subcutaneous injection one time only. 1 Active clopidogreL (PLAVIX) 75 mg Tablet Take 75 mg by mouth daily. 1 Active insulin aspart (NovoLOG) 100 unit/mL injection Inject 5 Units by subcutaneous injection 3 times daily with meals. 1 Active atorvastatin (LIPITOR) 40 mg tablet Take 40 mg by mouth daily at bedtime. 1 Active metFORMIN (GLUCOPHAGE) 850 mg tablet Take 850 mg by mouth 3 times daily with meals. 1 Active acarbose (PRECOSE) 100 mg tablet Take 100 mg by mouth 3 times daily with meals. 1 Active aspirin (ABBY CHEWABLE) 81 mg Tablet, Chewable Take 81 mg by mouth daily. 1 Active lisinopriL (PRINIVIL) 20 mg tablet Take 20 mg by mouth daily. 1 Active cetirizine (ZyrTEC) 10 mg tablet Take 10 mg by mouth daily. 1 Active hydroCHLOROthia zide 25 mg tablet Take 25 mg by mouth daily. 1 Active apixaban (Eliquis) 2.5 mg tablet Take 2.5 mg by mouth 2 times daily. Active Active Problems Problem Noted Date Diagnosed Date PAD (peripheral artery disease) 12/15/2020 Resolved Problems Problem Noted Date Diagnosed Date Resolved Date Arteriovenous fistula 10/01/20202020 Compartment syndrome of right lower extremity 10/02/19 21 12/15/2020 Atherosclerosis of upper [place] ar teries of extremity with rest pain 10/01/2020 12/15/2020 Social History Tobacco Use Types Packs/Day Years Used Date Smoking Tobacco: Former Cigarettes Q uit: 09/12/2006 Alcohol Use Standard Drinks/Week Comments Never 0 (1 standard drink = 0.6 oz pur e alcohol) Sex and Gender Information Value Date Recorded Sex Assigned at Not on file Legal Sex Male 11:25 PM BUNCHER HAND Gender Identity Not on file Sexual Orientation Not on file Last Filed Vital Signs Vital Sign Reading Time Taken Comments Blood Pressure 120/66 12/15/2020 8:51 AM CDT Pulse 98 12/15/2020 8:51 AM CDT Temperature 36.8 C (98.2 F) 10/03/2020 11:39 AM CDT Respiratory Rate 20 10/03/2020 11:39 AM CDT Oxygen Saturation 96% 12/15/2020 8:51 AM CDT Inhaled Oxygen Concentration - - Weight 83.5 kg (184 lb) 12/15/2020 8:51 AM CDT Height 177.8 cm (5' 10 ) 12/15/2020 8:51 AM CDT Body Mass Index 26.4 12/15/2020 8:51 AM CDT Plan of Treatment Health Maintenance Due Date Last Done Comments DTAP/TDAP/TD VACCINES (1 - Tdap) 10/06/1963 PNEUMOCOCCAL VACCINE 50+ YEARS (1 of 1 - PCV) 10/05/18 95 ZOSTER VACCINE (1 of 2) 1994 RSV VACCINE (60+ or ) (1 - 1-dose 75+ series) 10/06/2019 INFLUENZA VACCINE (#1) 2024 Medical Devices Implanted Type Area Payroll Clerk Device Identifier Shelf Expiration Date Model / Serial / Lot Angio-Seal Vip Closure Dev [id number] - [id number] Implanted:Qty: 1 on 10/01/2020 Closure Device Right: Groin [employer] 07/12/2021 [id number] / / [id number] Stent Synergy Mr 4.0x32mm Drug Elut [id number] - [id number] Implanted:Qty: 1 on 10/01/2020 by Joseph Montalvo MD Stent Right: Leg [employer] 01/28/2022 [id number] / / [id number] Stent Vasc Alva [id number] - [id number] Implanted:Qty: 1 on 10/01/2020 Stent Right: Leg [employer] 01/30/2022 [id number] / / [id number] Stent Viabahn Hep [id number] - [id number] Implanted:Qty: 1 on 10/01/2020 Stent Right: Leg [employer] 07/20/2023 [id number] / [id number] Insurance MEDICARE PART A AND B * Guarantor: MARBIN FUNEZ Account Type Relation to Patient Date of Phone Billing Address Personal/Family [address] [place] [id number] RX [employer] RX Member Subscriber Plan / Payer (Ef fective for All Dates) Name:Dee DeeMarbin Relation to Subscriber:Self Name:Dee DeeMarbin Payer ID:Not on file Type:RX Commercial Address: [place] * Guarantor: OLD [address] [facility] Account Type Relation to Patient Date of Phone Billing Address Corporate Other DEFAULT ADDRESS [place] [id number] [facility] OPTUM
== END 2024-12-23 12:52 | disposition home or self-care (01) ==
PROVIDERS: Emergency Provider Physician Assistant; PCP Family Medicine
DX: K56.0 Paralytic ileus (principal); Z79.4 Long term (current) use of insulin; Z79.84 Long term (current) use of oral hypoglycemic drugs; Z79.82 Long term (current) use of aspirin; Z87.891 Personal history of nicotine dependence; I25.10 Atherosclerotic heart disease of native coronary artery without angina pectoris; E11.42 Type 2 diabetes mellitus with diabetic polyneuropathy; Z85.51 Personal history of malignant neoplasm of bladder
CPT/HCPCS: 36415; 74019; 74177; 80053; 81001; 85025; 99285; J9999

== ENCOUNTER 2024-12-26 14:09 | Emergency (ER) | payer OTHER, MEDICARE, SELFPAY ==
--- OUTSIDE RECORDS SUMMARY | 2024-12-16 05:00 | XMS_ITS | Encounter Summary ---
Author Name [facility] [place] Address [address] [place] [address] Care Team Providers Care Cabinet Assembler Name Role Phone SHASTA GARDNER Primary Care Provider Unavailabl e Insurance Providers: All historical and current Section Date Range: From patient's date of to the date document was created. This section includes the names of all active insurance providers for the patient. Insurance Provider Type of Coverage Plan Name Start of Policy Coverage End of Policy Coverage Group Number Member ID Insurance Provider's Telephone Number Policy Giordano's Name Patient's Relationship to Policy Giordano MEDICARE (WNR) MEDICARE (M) PART B September 12, 2009 PART B [id number] SHANKS, NCENT PATIENT MEDICARE (WNR) MEDICARE (M) PART A September 12, 2009 PART A [id number] [phone] SHANKS, NCENT PATIENT MEDICARE (WNR) MEDICARE (M) PART B September 12, 2009 PART B [id number] [phone] SHANKS, NCENT PATIENT MEDICARE (WNR) MEDICARE (M) PART A September 12, 2009 PART A [id number] SHANKS, NCENT PATIENT MEDICARE (WNR) MEDICARE (M) PART B September 12, 2009 PART B [id number] NANCYS, NCENT PATIENT MEDICARE (WNR) MEDICARE (M) PART A September 12, 2009 PART A [id number] SHANKS, NCENT PATIENT Selected Encounter This section includes the information on record at [place] for the Encounter. Date/Time Encounter Type Encounter Description Reason Pro vider Source Dec 16, 2024 10:00 AM Outpatient Encounter PRIMARY CARE/MEDICINE IHE Encounter Template Text not used by [place] Plan of Treatment: Future Appointments (+ 6 months) and Future Tests (+/- 45 days) The Plan of Treatment section includes future care activities for the patient from all [place] treatmentfacilities. This section includes future appointments and future orders which are active, pending or scheduled. Future Appointments This section includes appointments that were scheduled to occur 6 months from the date of the Encounter, up to a maximum of 20 appointments. The data comes from all [place] treatment facilities. Appointment Date/Time Appointment Type Appointme nt Facility Name Jan 16, 2025 01:00 PM AMBULATORY - MEDICINE [facility] Active, Pending, and Scheduled Orders This section includes a listing of several types of active, pending, and scheduled orders, including clinic medications orders, diagnostic test orders, procedure orders and consult orders; where the start date of the order is 45 days before the date of the Encounter or 45 days after the date of theEncounter. The data comes from all [place] treatment facilities. Test Date/Time Test Type Test Details Facility Name Dec 16, 2024 11:26 AM Laboratory - Chemi stry Order POC UA (STL-PB-MA) URINE SP [facility] Lab Results: +/- 30 days of the encounter This section includes the Chemistry and Hematology Lab Results on record with [place] for the patient. Radiology Reports and Pathology Reports are provided separately, in subsequent sections. Lab Results This section contains the Chemistry/Hematology Results that were resulted 30 days before or 30 daysafter the date of the Encounter. Date/Time Source Result Type Result - Unit Interpretation Reference Range Specimen Type Comment Dec 16, 2024 12:22 PM [facility] HGA1C BLOOD Specimen Type: BLOOD No comment entered. Ordering Provider: SHASTA GARDNER Report Released Date/Time: Jan 01, 2024 10:42 AM Reporting Lab: [place] [facility] [address] [place] [address] Performing Lab: [place] [facility] [address] [place] [address] HGA1C 7.0 H 4.0-6.0 Dec 16, 2024 12:22 PM [facility] URINE ALBUMIN PROFILE-ih (PB) URINE Specimen Type: URINE No comment entered. Ordering Provider: SHASTA GARDNER Report Released Date/Time: Jan 01, 2024 10:42 AM Reporting Lab: [place] [facility] [address] [place] [address] Performing Lab: [place] [facility] [address] [place] [address] URINE ALBUMIN (PB-STL) 12.63 mg/L uACR (PB-MA) 18.42 mg/g 0-30 CREATININE URINE/OTHERS 68.56 mg/dL Dec 16, 2024 12:22 PM [facility] TSH (MA-PB) SERUM Specimen Typ e: SERUM No comment entered. Ordering Provider: SHASTA GARDNER Report Released Date/Time: Jan 01, 2024 10:42 AM Reporting Lab: [place] [facility] [address] [place] [address] Performing Lab: [place] [facility] [address] [place] [address] TSH 0.142 u[IU]/mL L 0.47-5 FREE T4(REFLEX) 1.33 ng/dL 0.7-1.48 Dec 16, 2024 12:22 PM [facility] CHOLESTEROL PANEL (PB) PLASMA Specimen Type: P LASMA No comment entered. Ordering Provider: SHASTA GARDNER Report Released Date/Time: Jan 01, 2024 10:42 AM Reporting Lab: [place] [facility] [address] [place] [address] Performing Lab: [place] [facility] [address] [place] [address] CHOLESTEROL 91 mg/dL 0-200 TRIGLYCERIDE 67 mg/dL 0-150 CALCULATED LDL 37.6 mg/dL HDL(New) 40.0 mg/dL H >40 HDL % OF TOTAL CHOLESTEROL (PB) 44.0 >25 Dec 16, 2024 12:22 PM [facility] COMPREHENSIVE METABOLIC PANEL PLASMA Specimen Type: PLASMA No comment entered. Ordering Provider: SHASTA GARDNER Report Released Date/Time: Jan 01, 2024 10:42 AM Reporting Lab: [place] [facility] [address] [place] [address] Performing Lab: [place] [facility] [address] [place] [address] CREATININE 0.61 mg/dL L 0.7-1.3 UREA NITROGEN 9 mg/dL 9-25 GLUCOSE 159 mg/dL H 72-99 SODIUM 139 meq/L 136-145 POTASSIUM 4.6 meq/L 3.5-5 CHLORIDE 102 meq/L 98-107 CARBON DIOXIDE 28 meq/L 22-31 CALCIUM 9.3 mg/dL 8.4-10.4 PROTEIN 7.2 g/dL 6-8.6 ALBUMIN 4.5 g/dL 3.4-5 TOTAL BILIRUBIN 0.2 mg/dL 0.2-1.2 ALKALINE PHOSPHATASE 69 U/L 40-150 AST/SGOT 16 U/L 5-34 ALT/SGPT 12 U/L 8-40 EGFR (CKD-EPI 2020) 97 Dec 16, 2024 12:22 PM [facility] CBC BLOOD Specimen Type: BLOOD No comment entered. Ordering Provider: SHASTA GARDNER Report Released Date/Time: Jan 01, 2024 10:42 AM Reporting Lab: [place] [facility] [address] [place] [address] Performing Lab: [place] [facility] [address] [place] [address] WBC 8.5 10*3/uL 3.6-11.2 RBC 4.39 10*6/uL 4.10-5.70 HGB 13.2 g/dL 13.1-16.8 HCT 39.9 38.2-48.4 MCV 90.9 fL 80.0-100.0 MCH 30.1 pg 27.0-34.0 MCHC 33.1 g/dL 33.0-36.0 PLT 329 10*3/uL 150-400 MPV 9.0 fL 7.5-11.2 RDW 13.7 11.8-15.1 LYMPHOCYTES, AUTO % 14.6 MONOCYTES, AUTO % 8.1 NEUTROPHILS, AUTO % 67.6 EOSINOPHILS, AUTO % 8.5 BASOPHILS, AUTO % 0.8 LYMPHOCYTES, ABSOLUTE 1.24 10*3/uL 0.77- 4.50 MONOCYTES, ABSOLUTE 0.69 10*3/uL 0.19-0. 8 NEUTROPHILS, ABSOLUTE 5.77 10*3/uL 2.10- 8.00 EOSINOPHILS, ABSOLUTE 0.72 10*3/uL H 0.00- 0.60 BASOPHILS, ABSOLUTE 0.07 10*3/uL 0.00-0. 20 IMMATURE GRANS, AUTO % 0.4 IMMATURE GRANS, AUTO ABS 0.03 10*3/uL 0. 00-0.05 Dec 16, 2024 11:44 AM [facility] POC UA (STL-PB-MA) URINE Specimen Type: URINE No comment entered. Ordering Provider: SHASTA GARDNER Report Released Date/Time: Dec 16, 2024 11:51 AM Reporting Lab: [facility] [address] [facility] [address] Performing Lab: [facility] [address] [facility] [address] PROTEIN POC UA Negative mg/dL Negative BLOOD POC UA Negative Negative LEUKOCYTES POC UA Negative Negative COLOR POC UA Yellow YELLOW SPEC GRAV POC UA 1.015 1.005-1.030 UROBILINOGEN POC UA 1.0 {Ryan'U}/dL 0 .1-1.0 BILIRUBIN POC UA Negative Negative KETONES POC UA Negative mg/dL Negative GLUCOSE POC UA 250 mg/dL Negative pH POC UA 7.0 5.0-8.0 NITRITE POC UA Negative Negative CLARITY POC UA Clear CLEAR Vital Signs: All taken on the encounter date This section contains inpatient and outpatient Vital Signs collected on the date of the Encounter. Date/Time Temperature Pulse Blood Pressure Respiratory Rate SP02 Pain Height Weight Body Mass Index Source Dec 16, 2024 10:43 AM 97.7 F 87 /min 139/73 mm[Hg] 18 /min 94 % 206.6 lb 30 [facility] Social History: Smoking Status (Most current) and Tobacco Use (All prior to encounter date) This section includes the most current, and the historical, smoking and tobacco- related health factors from the [place] facility where the Encounter took place. Current Smoking Status This section includes the most current smoking, or tobacco-related health factor, from the [place] facility where the Encounter took place. Date/Time Current Smoking Status Comment Facil ity Jan 01, 2024 10:30 AM VA-TOBACCO QUIT 15 YRS OR MORE [facility] Tobacco Use History This section includes a history of the smoking, or tobacco-related health factors, that were collected on or before the date of the Encounter. The data comes from the [place] facility where the Encounter took place. Date/Time Smoking Status/Tobacco Use Comment F acility Jan 01, 2024 10:30 AM VA-TOBACCO QUIT 15 YRS OR MORE [facility] Dec 22, 2022 01:00 PM VA-TOBACCO FORMER USER [facility] Dec 22, 2022 01:00 PM VA-TOBACCO QUIT 15 YRS OR MORE [facility] Dec 06, 2021 08:30 AM VA-TOBACCO NEVER USED [facility] Feb 05, 2019 03:37 PM VA-TOBACCO FORMER USER [facility] Feb 05, 2019 03:37 PM VA-TOBACCO QUIT 5 TO < 15 YRS [facility] Jan 25, 2018 02:26 PM QUIT TOBACCO >7 YEARS AGO [facility] Sep 09, 2013 10:16 AM LIFETIME NON-USER OF TOBACCO [facility] Aug 22, 2012 09:07 AM QUIT TOBACCO >12 M O & <7 YRS AGO [facility] Jul 08, 2011 08:23 AM QUIT TOBACCO >12 M O & <7 YRS AGO [facility] Jul 28, 2010 08:37 AM QUIT TOBACCO >12 M O & <7 YRS AGO [facility] Jul 22, 2009 09:25 AM QUIT TOBACCO >12 M O & <7 YRS AGO [facility] Mar 05, 2008 03:06 PM TOBACCO MEDS OFFER ED BUT DECLINED [facility] Mar 05, 2008 03:06 PM TOBACCO OFFERED PT MEDS (PROVIDER) is quitting on his own [facility] Mar 05, 2008 03:[address] [facility] is quitting on his own [facility] Dec 24, 2007 10:44 AM CURRENT TOBACCO USER [facility] Dec 24, 2007 10:44 AM TOBACCO MEDS OFFER ED BUT DECLINED [facility] Dec 24, 2007 10:44 AM TOBACCO OFFERED PT MEDS (PROVIDER) refuses at this time [facility] Dec 24, 2007 10:[address] [facility] refuses at this time [facility] Radiology Reports: +/- 30 days of the encounter Radiology Reports For cases when an order for radiology services may have been completed prior to the date of the Encounter, the report list includes the Radiology Reports that were completed up to 30 days before dateof the Encounter. For cases when an order for radiology services may have been completed after the date of the Encounter, the report list also includes the Radiology Reports that were completed up to30 days after date of the Encounter. The data comes from all [place] treatment facilities. Date/Time Radiology Report Provider Source Dec 16, 2024 11:22 AM ABDOMEN X-RAY,1 EW: NANCYNOAH Osei [facility] [id number] -[id number] M Exm Date: DEC 16, 2024@11:22 Req Phys: HALEY CONNOLLY Pat Loc: -[facility] ( Img Loc: -[facility] Service: [place] [address] (Case [id number] COMPLETE) ABDOMEN X-RAY,1 VIEW (RAD Detailed) CPT:53579 Reason for Study: right flank pain Clinical History: Report Status: Verified Date Reported: DEC 16, 2024 Date Verified: DEC 16, 2024 Core Driller E-Sig: Report: AP views of the abdomen/pelvis reveal degenerative skeletal changes in the lumbar spine and at the SI joints and hips. There is no appreciable acute osseous abnormality. There are multiple loops of gas-filled colon, with considerable stool but no direct evidence of bowel obstruction. There is no appreciable ascites or pneumoperitoneum. There is no identified urinary tract stone. Impression: 1. Chronic findings as noted 2. Abnormal bowel pattern compatible with relative hypomotility 3. No evidence of obstruction Primary Interpreting Staff: MENG HART RADIOLOGIST (Core Driller, no e-sig) /MENG Fischer [facility] Dec 16, 2024 11:22 AM SPINE LUMBOSACRAL 2 OR 3 VIEWS: NOAH GRANT [facility] [id number] -1945 M Exm Date: DEC 16, 2024@11:22 Req Phys: HALEY CONNOLLY Loc: [facility] ( Img Loc: -[facility] Service: [place] [address] (Case [id number] COMPLETE) SPINE LUMBOSACRAL 2 OR 3 VIEWS (RAD Detailed) CPT:62641 Reason for Study: right flank pain Clinical History: for 7 days Report Status: Verified Date Reported: DEC 16, 2024 Date Verified: DEC 16, 2024 Core Driller E-Sig: Report: AP and lateral views of the lumbar spine reveal degenerative skeletal change and mild disc disease at the TL junction. There is no spondylolysis or spondylolisthesis. There is no acute osseous abnormality. There are vascular calcifications. There is a stent in the distal aorta extending into the common iliac arteries. There are multiple loops of gas-filled colon with considerable stool and gas, but no direct evidence of bowel obstruction. Impression: 1. Degenerative skeletal changes 2. Multilevel disc disease 3. No acute osseous abnormality 4. Abnormal bowel pattern compatible hypomotility Primary Interpreting Staff: MENG HART, RADIOLOGIST (Core Driller, no e-sig) /MENG [facility] [place] [facility]
--- OUTSIDE RECORDS SUMMARY | 2024-12-19 07:38 | XMS_ITS | Encounter Summary ---
Author Name [facility] Organization [facility] Address [address] [place] [address] Care Team Providers Care Baking Powder Mixer Name Role Phone SHASTA GARDNER Primary Care [...] PART B September 12, 2009 PART B [id number] SHANKS, NCENT PATIENT MEDICARE (WNR) MEDICARE (M) PART B September 12, 2009 PART B [id number] SHANKS, NCENT PATIENT MEDICARE (WNR) MEDICARE (M) PART A September 12, 2009 PART A [id number] [phone] SHANKS, NCENT PATIENT MEDICARE (WNR) MEDICARE (M) PART A September 12, 2009 PART A [id number] SHANKS, NCENT PATIENT MEDICARE (WNR) MEDICARE (M) PART B September 12, 2009 PART B [id number] NANCYS, NCCOBY PATIENT MEDICARE (WNR) MEDICARE (M) PART A September 12, 2009 PART A [id number] NANCYSLOLY NCCOBY PATIENT Selected Encounter This section includes the information on record at [facility] for the Encounter. Date/Time Encounter Type Encounter Description Reason Pro vider Source Dec 19, 2024 12:38 PM Outpatient Encounter COMMUNITY CARE CONSULT IHE Encounter Template Text not used by [facility] Plan of Treatment: Future Appointments (+ 6 months) and Future Tests (+/- 45 days) The Plan of Treatment section includes future care activities for the patient from all [facility] treatmentfacilities. This section includes future appointments and future orders which are active, pending or scheduled. Future Appointments This section includes appointments that were scheduled to occur 6 months from the date of the Encounter, up to a maximum of 20 appointments. The data comes from all [facility] treatment facilities. Appointment Date/Time Appointment Type Appointme nt Facility Name Jan 16, 2025 01:00 PM AMBULATORY - MEDICINE [facility] Active, Pending, and Scheduled Orders This section includes a listing of several types of active, pending, and scheduled orders, including clinic medications orders, diagnostic test orders, procedure orders and consult orders; where the start date of the order is 45 days before the date of the Encounter or 45 days after the date of theEncounter. The data comes from all [facility] treatment facilities. Test Date/Time Test Type Test Details Facility Name Dec 16, 2024 11:26 AM Laboratory - Chemi stry Order POC UA (STL-PB-MA) URINE SP [facility] Lab Results: +/- 30 days of the encounter This section includes the Chemistry and Hematology Lab Results on record with [facility] for the patient. Radiology Reports and Pathology Reports are provided separately, in subsequent sections. Lab Results This section contains the Chemistry/Hematology Results that were resulted 30 days before or 30 daysafter the date of the Encounter. Date/Time Source Result Type Result - Unit Interpretation Reference Range Specimen Type Comment Dec 16, 2024 12:22 PM [facility] H[facility] BLOOD Specimen Type: BLOOD No comment entered. Ordering Provider: SHASTA GARDNER Report Released Date/Time: Jan 01, 2024 10:42 AM Reporting Lab: [place] [facility] [address] [place] [address] Performing Lab: [place] [facility] [address] [place] [address] HGA1C 7.0 H 4.0-6.0 Dec 16, 2024 12:22 PM [facility] URINE ALBUMIN PROFILE-ih (PB) URINE Specimen Type: URINE No comment entered. Ordering Provider: SHASTA GARDNER Report Released Date/Time: Jan 01, 2024 10:42 AM Reporting Lab: [place] [facility] [address] [place] [address] Performing Lab: [place] [facility] [address] [place] [address] URINE ALBUMIN (PB-STL) 12.63 mg/L uACR (PB-MA) 18.42 mg/g 0-30 CREATININE URINE/OTHERS 68.56 mg/dL Dec 16, 2024 12:22 PM [facility] TSH (MA-PB) SERUM Specimen Typ e: SERUM No comment entered. Ordering Provider: SHASTA GARDNER Report Released Date/Time: Jan 01, 2024 10:42 AM Reporting Lab: [place] [facility] [address] [place] [address] Performing Lab: [place] [facility] [address] [place] [address] TSH 0.142 u[IU]/mL L 0.47-5 FREE T4(REFLEX) 1.33 ng/dL 0.7-1.48 Dec 16, 2024 12:22 PM [facility] CHOLESTEROL PANEL (PB) PLASMA Specimen Type: P LASMA No comment entered. Ordering Provider: SHASTA GARDNER Report Released Date/Time: Jan 01, 2024 10:42 AM Reporting Lab: [place] [facility] [address] [place] [address] Performing Lab: [place] [facility] [address] [place] [address] CHOLESTEROL 91 mg/dL 0-200 TRIGLYCERIDE 67 mg/dL 0-150 CALCULATED LDL 37.6 mg/dL HDL(New) 40.0 mg/dL H >40 HDL % OF TOTAL CHOLESTEROL (PB) 44.0 >25 Dec 16, 2024 12:22 PM [facility] COMPREHENSIVE METABOLIC PANEL PLASMA Specimen Type: PLASMA No comment entered. Ordering Provider: SHASTA GARDNER Report Released Date/Time: Jan 01, 2024 10:42 AM Reporting Lab: [place] [facility] [address] [place] [address] Performing Lab: [place] [facility] [address] [place] [address] CREATININE 0.61 mg/dL L 0.7-1.3 UREA NITROGEN [...] 2020) 97 Dec 16, 2024 12:22 PM [facility] CBC BLOOD Specimen Type: BLOOD No comment entered. Ordering Provider: SHASTA GARDNER Report Released Date/Time: Jan 01, 2024 10:42 AM Reporting Lab: [place] [facility] [address] [place] [address] Performing Lab: [place] [facility] [address] [place] [address] WBC 8.5 10*3/uL 3.6-11.2 RBC 4.39 10*6/uL [...] 0. 00-0.05 Dec 16, 2024 11:44 AM [facility] POC UA (STL-PB-MA) URINE Specimen Type: URINE No comment entered. Ordering Provider: SHASTA GARDNER Report Released Date/Time: Dec 16, 2024 11:51 AM Reporting Lab: [facility] [address] [facility] [address] Performing Lab: [facility] [address] [facility] [address] PROTEIN POC UA Negative mg/dL Negative BLOOD [...] Negative Negative CLARITY POC UA Clear CLEAR Social History: Smoking Status (Most current) and Tobacco Use (All prior to encounter date) This section includes the most current, and the historical, smoking and tobacco- related health factors from the [facility] facility where the Encounter took place. Current Smoking Status This section includes the most current smoking, or tobacco-related health factor, from the [facility] facility where the Encounter took place. Date/Time Current Smoking Status Analia callahan September 29, 2014 11:38 AM QUIT TOBACCO >7 YEARS AGO [facility] Radiology Reports: +/- 30 days of the [...] the Encounter. The data comes from all [facility] treatment facilities. Date/Time Radiology Report Provider Source Dec 16, 2024 11:22 AM ABDOMEN X-RAY,1 EW: NOAH GRANT [id number] -[id number] M Exm Date: DEC 16, 2024@11:22 Req Phys: HALEY CONNOLLY Loc: [facility] ([place] ( [facility]: [facility] Service: [place] [address] (Case [id number] COMPLETE) ABDOMEN X-RAY,1 VIEW (RAD Detailed) CPT:32153 Reason for Study: right flank pain Clinical History: Report Status: Verified Date Reported: DEC 16, 2024 Date Verified: DEC 16, 2024 Independent Crop Consultant E-Sig: Report: AP views of the abdomen/pelvis [...] obstruction Primary Interpreting Staff: MENG HART RADIOLOGIST (Independent Crop Consultant, no e-sig) /MENG Fischer [facility] Dec 16, 2024 11:22 AM SPINE LUMBOSACRAL 2 OR 3 VIEWS: NOAH GRANT DAVID [id number] -[id number] M Exm Date: DEC 16, 2024@11:22 Req Phys: HALEY CONNOLLY Loc: [facility] ([place]) ( Img Loc: [facility] [place] Service: [place] [address] (Case [id number] COMPLETE) SPINE LUMBOSACRAL 2 OR 3 VIEWS (RAD Detailed) CPT:70152 Reason for Study: right flank pain Clinical History: for 7 days Report Status: Verified Date Reported: DEC 16, 2024 Date Verified: DEC 16, 2024 Independent Crop Consultant E-Sig: Report: AP and lateral views of [...] hypomotility Primary Interpreting Staff: MENG HART, RADIOLOGIST (Independent Crop Consultant, no e-sig) /MENG Fischer [facility] Encounter Notes: All associated encounter notes This section contains the clinical notes associated to the Encounter. Date/Time Encounter Note(s) Provider Source Dec 19, 2024 12:43 PM LETTERS: LOCAL TITLE: [facility] CARE-REQUEST FOR SERVICES (RFS) LETTER STANDARD TITLE: LETTERS DATE OF NOTE: DEC 19, 2024@12:43 ENTRY DATE: DEC 19, 2024@12:43:20 AUTHOR: JES CHAMPAGNE COSIGNER: URGENCY: STATUS: COMPLETED Dr. Joel Moncada [facility] Podiatry [address] [place] [address] T: [phone] F: [phone] Dear Provider, Information: Patient Name: NOAH GRANT Date of : September Service has been approved. Received RFS from Dr. 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 New Prosthetic consult order entered and awaiting PCP signature. Should you have questions, please contact us at [phone]. [phone] to speak with a patient director of consulting services. As a reminder, if applicable, return medical records within 30 days for routine services. Sincerely, JORDAN Mcgrath, RN JES CHAMPAGNE [facility] Dec 19, 2024 12:40 PM NONVA NOTE: LOCAL TITLE: COMMUNITY CARE-REQUEST FOR SERVICE NOTE PB STANDARD TITLE: NONVA NOTE DATE OF NOTE: DEC 19, 2024@12:40 ENTRY DATE: DEC 19, 2024@12:41:07 AUTHOR: JES CHAMPAGNE EXP COSIGNER: URGENCY: STATUS: COMPLETED COMMUNITY CARE-REQUEST FOR SERVICE NOTE PB Has ADDENDA Request for Services (RFS) documentation has been sent for scanning to [facility] Care Consult: COMMUNITY CARE-PODIATRY Consult Number: [id number] Authorization Number: [id number] Date sent to scanning: Dec A Request for Service (RFS) form [id number] has been received which includes the following: Care Requested:Received RFS from Dr. 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 Date [place] received request: Dec Date service required (PID): Dec Requesting [facility] Provider Information: Dr. Joel Moncada [facility] Podiatry [address] [place] [address] T: [phone] F: [phone] 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 New Prosthetic consult order entered and awaiting PCP signature. /es/ JES ORTEGA, RN Signed: 12/19/2024 12:43 12/20/2024 ADDENDUM STATUS: COMPLETED [facility] Scanned Document - Addendum. Request for Services (RFS) documentation has been sent for scanning to [facility] Community [facility] Consult: COMMUNITY CARE-PODIATRY Consult Number: [id number] Authorization Number: [id number] Date sent to scanning: Dec SCANNED DOCUMENT SIGNATURE NOT REQUIRED Electronically Filed: 12/20/2024 by: JES Esqueda [facility]
--- OUTSIDE RECORDS SUMMARY | 2024-12-24 12:20 | XMS_ITS | Encounter Summary ---
Author Name [facility] [place] [facility] [place] [place] Address [address] [place] [address] Care Team Providers Care Health And Safety Consultant Name Role Phone SHAVONNE GARDNER Primary Care Provider Unavailabl e Insurance [...] PART B September 12, 2009 PART B [id number] SHANKS, NCENT PATIENT MEDICARE (WNR) MEDICARE (M) PART A September 12, 2009 PART A [id number] SHANKS, NCENT PATIENT MEDICARE (WNR) MEDICARE (M) PART B September 12, 2009 PART B [id number] SHANKS, NCENT PATIENT MEDICARE (WNR) MEDICARE (M) PART A September 12, 2009 PART A [id number] SHANKS, NCENT PATIENT MEDICARE (WNR) MEDICARE (M) PART B September 12, 2009 PART B [id number] NANCYS, NCCOBY PATIENT MEDICARE (WNR) MEDICARE (M) PART A September 12, 2009 PART A [id number] NANCYS,LOLY NCCOBY PATIENT Selected Encounter This section includes the information on record at CT for the Encounter. Date/Time Encounter Type Encounter Description Reason Provider Source Dec 24, 2024 05:20 PM Outpatient Encounter COMMUNITY CARE CONSULT ROLO CARDOZO Encounter Template Text not used by CT Plan of Treatment: Future Appointments (+ 6 months) and Future Tests (+/- 45 days) The Plan of Treatment section includes future care activities for the patient from all CT treatmentfacilities. This section includes future appointments and future orders which are active, pending or scheduled. Future Appointments This section includes appointments that were scheduled to occur 6 months from the date of the Encounter, up to a maximum of 20 appointments. The data comes from all CT treatment facilities. Appointment Date/Time Appointment Type Appointme nt Facility Name Jan 16, 2025 01:00 PM AMBULATORY - MEDICINE [facility] Active, Pending, and Scheduled Orders This section includes a listing of several types of active, pending, and scheduled orders, including clinic medications orders, diagnostic test orders, procedure orders and consult orders; where the start date of the order is 45 days before the date of the Encounter or 45 days after the date of theEncounter. The data comes from all CT treatment facilities. Test Date/Time Test Type Test Details Facility Name Dec 16, 2024 11:26 AM Laboratory - Chemi stry Order POC UA (STL-PB-MA) URINE SP [facility] Lab Results: +/- 30 days of the encounter This section includes the Chemistry and Hematology Lab Results on record with CT for the patient. Radiology Reports and Pathology Reports are provided separately, in subsequent sections. Lab Results This section contains the Chemistry/Hematology Results that were resulted 30 days before or 30 daysafter the date of the Encounter. Date/Time Source Result Type Result - Unit Interpretation Reference Range Specimen Type Comment Dec 16, 2024 12:22 PM [facility] URINE ALBUMIN PROFILE-ih (PB) URINE Specimen Type: URINE No comment entered. Ordering Provider: SHAVONNE GARDNER Report Released Date/Time: Jan 01, 2024 10:42 AM Reporting Lab: [place] [facility] [address] [place] [address] Performing Lab: [place] [facility] [address] [place] [address] URINE ALBUMIN (PB-STL) 12.63 mg/L uACR (PB-MA) 18.42 mg/g 0-30 CREATININE URINE/OTHERS 68.56 mg/dL Dec 16, 2024 12:22 PM [facility] [place] [facility] TSH (MA-PB) SERUM Specimen Typ e: SERUM No comment entered. Ordering Provider: SHAVONNE GARDNER Report Released Date/Time: Jan 01, 2024 10:42 AM Reporting Lab: [place] [facility] [address] [place] [id number] Performing Lab: [place] [facility] [address] [place] [id number] TSH 0.142 u[IU]/mL L 0.47-5 FREE T4(REFLEX) 1.33 ng/dL 0.7-1.48 Dec 16, 2024 12:22 PM [facility] [place] [facility] HGA1C BLOOD Specimen Type: BLOOD No comment entered. Ordering Provider: SHAVONNE GARDNER Report Released Date/Time: Jan 01, 2024 10:42 AM Reporting Lab: [place] [facility] [address] [place] [address] Performing Lab: [place] [facility] [address] [place] [address] HGA1C 7.0 H 4.0-6.0 Dec 16, 2024 12:22 PM [facility] CHOLESTEROL PANEL (PB) PLASMA Specimen Type: P LASMA No comment entered. Ordering Provider: SHAVONNE GARDNER Report Released Date/Time: Jan 01, 2024 10:42 AM Reporting Lab: [place] [facility] [address] [place] [address] Performing Lab: [place] [facility] [address] [place] [address] CHOLESTEROL 91 mg/dL 0-200 TRIGLYCERIDE 67 mg/dL 0-150 CALCULATED LDL 37.6 mg/dL HDL(New) 40.0 mg/dL H >40 HDL % OF TOTAL CHOLESTEROL (PB) 44.0 >25 Dec 16, 2024 12:22 PM [facility] COMPREHENSIVE METABOLIC PANEL PLASMA Specimen Type: PLASMA No comment entered. Ordering Provider: SHAVONNE GARDNER Report Released Date/Time: Jan 01, 2024 10:42 AM Reporting Lab: [place] [facility] [address] [place] [id number] Performing Lab: [place] [facility] [address] [place] [id number] CREATININE 0.61 mg/dL L 0.7-1.3 UREA NITROGEN [...] 2020) 97 Dec 16, 2024 12:22 PM [facility] CBC BLOOD Specimen Type: BLOOD No comment entered. Ordering Provider: SHAVONNE GARDNER Report Released Date/Time: Jan 01, 2024 10:42 AM Reporting Lab: [place] [facility] [address] [place] [id number] Performing Lab: [place] [facility] [address] [place] [address] WBC 8.5 10*3/uL 3.6-11.2 RBC 4.39 10*6/uL [...] 0. 00-0.05 Dec 16, 2024 11:44 AM [facility] POC UA (STL-PB-MA) URINE Specimen Type: URINE No comment entered. Ordering Provider: SHAVONNE GARDNER Report Released Date/Time: Dec 16, 2024 11:51 AM Reporting Lab: [facility] [address] [facility] [address] Performing Lab: [facility] [address] [facility] [address] PROTEIN POC UA Negative mg/dL Negative BLOOD [...] and tobacco- related health factors from the CT facility where the Encounter took place. Current Smoking Status This section includes the most current smoking, or tobacco-related health factor, from the CT facility where the Encounter took place. Date/Time Current Smoking Status Comment Wilmar callahan September 29, 2014 11:38 AM QUIT TOBACCO >7 YEARS AGO [facility] Radiology Reports: +/- 30 days [...] the Encounter. The data comes from all CT treatment facilities. Date/Time Radiology Report Provider Source Dec 16, 2024 11:22 AM ABDOMEN X-RAY,1 EW: NANCYFarnazENMANOAH VINC [id number] -[id number] M Exm Date: DEC 16, 2024@11:22 Req Phys: HALEY CONNOLLY Loc: [facility] (AR) ( Im[facility] Service: [place] [address] (Case [id number] COMPLETE) ABDOMEN X-RAY,1 VIEW (RAD Detailed) CPT:59791 Reason for Study: right flank pain Clinical History: Report Status: Verified Date Reported: DEC 16, 2024 Date Verified: DEC 16, 2024 Drapery Hemmer Automatic E-Sig: Report: AP views of the abdomen/pelvis [...] obstruction Primary Interpreting Staff: MENG HART RADIOLOGIST (Drapery Hemmer Automatic, no e-sig) /MENG Fischer [facility] Dec 16, 2024 11:22 AM SPINE LUMBOSACRAL 2 OR 3 VIEWS: NANCYFarnazENMANOAH VINC [id number] -[id number] M Exm Date: DEC 16, 2024@11:22 Req Phys: HALEY CONNOLLY Loc: [facility] ([facility]) ( Img Loc: PB-XRAY [place] Service: [place] [address] (Case [id number] COMPLETE) SPINE LUMBOSACRAL 2 OR 3 VIEWS (RAD Detailed) CPT:64074 Reason for Study: right flank pain Clinical History: for 7 days Report Status: Verified Date Reported: DEC 16, 2024 Date Verified: DEC 16, 2024 Drapery Hemmer Automatic E-Sig: Report: AP and lateral views of [...] hypomotility Primary Interpreting Staff: MENG HART, RADIOLOGIST (Drapery Hemmer Automatic, no e-sig) /MENG Fischer [facility] Encounter Notes: All associated encounter notes This section contains the clinical notes associated to the Encounter. Date/Time Encounter Note(s) Provider Source Dec 24, 2024 05:23 PM ADDENDUM: LOCAL TITLE: Addendum STANDARD TITLE: ADDENDUM DATE OF NOTE: DEC 24, 2024@17:23:44 ENTRY DATE: DEC 24, 2024@17:23:44 AUTHOR: ROLO CARDOZO COSIGNER: URGENCY: STATUS: COMPLETED Discharge Disposition Date of discharge: Dec Disposition Discharge to home from [facility] ER Clinical Impression: Adynamic Ileus Follow up with PCP CT Imaging showing Ileus- Instructions for care given (ED Provider: Mitzi GALVAN) Episode of Care Complete. Signed ER Report sent to [facility] for scanning. 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 Name: Hospital: [facility] Address: [address] City: [place] State: [place] Zip Code: [address] [facility] Facility Point of Contact: Name: Natalia Pacheco Chief complaint: Back Pain, No Bowel Movement in 7 days Disposition Unknown at time of intake note entry /shanita/ ROLO CARDOZO RN [facility] Signed: 12/24/2024 17:23 12/23/2024 ADDENDUM STATUS: COMPLETED VistA Imaging Scanned Document - Addendum. [facility] SCANNED DOCUMENT SIGNATURE NOT REQUIRED Electronically Filed: 12/25/2024 by: JOVANNA Barger [facility] 12/25/2024 ADDENDUM STATUS: COMPLETED [id number], 1703 Clinical Review /esAugust LIONEL BEANVIDESRN Signed: 12/25/2024 12:23 ROLO CARDOZO [facility] Dec 23, 2024 11:16 AM NONVA NOTE: LOCAL TITLE: COMMUNITY CARE-NADINE SELF PRESENTING CARE COORD PLAN STANDARD TITLE: NONVA NOTE DATE OF NOTE: DEC 23, 2024@11:16 ENTRY DATE: DEC 24, 2024@17:21:38 AUTHOR: ROLO CARDOZO COSIGNER: URGENCY: STATUS: COMPLETED COMMUNITY CARE-NADINE SELF PRESENTING CARE COORD PLAN 657A4 PB Has ADDENDA Emergency Notification Intake Date Presenting to the Facility: Dec 09:28AM [employer] TELE[employer] CONSOLE MONITOR Method of Contact:Provider Notified from ECR worklist Notification ID: [id number] [facility] Referral #: Portal Generated [facility] Name: Hospital: [facility] Address: [address] City: [place]: [place] Zip Code: [address] [facility] Facility Point of Contact: Name: Natalia Pacheco Chief complaint: Back Pain, No Bowel Movement in 7 days Disposition Unknown at time of intake note entry /shanita/ ROLO CARDOZO RN [place] [facility] Signed: 12/24/2024 17:23 12/24/2024 ADDENDUM STATUS: COMPLETED Discharge Disposition Date of discharge: Dec Disposition Discharge to home from [facility] ER Clinical Impression: Adynamic Ileus Follow up with PCP CT Imaging showing Ileus- Instructions for care given (ED Provider: Mitzi GALVAN) Episode of Care Complete. Signed ER Report sent to [facility] for scanning. Alerting PACT team for review /shanita/ ROLO CARDOZO RN [place] [facility] Signed: 12/24/2024 17:26 Receipt Acknowledged By: 12/25/2024 10:10 /es/ Shavonne Gardner MD [facility] Primary Care 12/25/2024 12:55 /es/ SOLIS TORRES * AWAITING SIGNATURE * TRINH FERRARO * AWAITING SIGNATURE * HANNAH GARCIA 12/25/2024 10:05 // AUGUST Mala BENAVIDES,RN 12/23/2024 ADDENDUM STATUS: COMPLETED VistA Imaging Scanned Document - Addendum. [facility] SCANNED DOCUMENT SIGNATURE NOT REQUIRED Electronically Filed: 12/25/2024 by: JOVANNA Barger [facility] 12/25/2024 ADDENDUM STATUS: COMPLETED [id number], 1703 Clinical Review /august Mala BENAVIDES,RN Signed: 12/25/2024 12:23 12/25/2024 ADDENDUM STATUS: COMPLETED ER Report in email from Vianca Cardozo dated December 24, 2024. /shanita/ SOLIS TORRES Signed: 12/25/2024 12:56 ROLO CARDOZO [facility] Dec 23, 2024 03:31 AM NONVA NOTE: LOCAL TITLE: COMMUNITY CARE-NADINE SELF PRESENTING CARE COORD PLAN STANDARD TITLE: NONVA NOTE DATE OF NOTE: DEC 23, 2024@03:31 ENTRY DATE: DEC 24, 2024@17:33:16 AUTHOR: ROLO CARDOZO EXP COSIGNER: URGENCY: STATUS: COMPLETED COMMUNITY CARE-NADINE SELF PRESENTING CARE COORD PLAN 657A4 PB Has ADDENDA Emergency Notification Intake Date Presenting to the Facility: Dec 02:30AM [employer] TELEVIS[employer] CONSOLE MONITOR Method of Contact:Provider Notified from ECR worklist Notification ID: [id number] [facility] Referral #: Portal Generated [facility] Name: Hospital: [facility] Address: [address] [place] [address] City: [place] State: [place] Zip Code: [address] [facility] Facility Point of Contact: Name: Ely Pacheco Chief complaint: Weakness Arrived by Ambulance Disposition Unknown at time of intake note entry /shanita/ ROLO CARDOZO RN [place] [facility] Signed: 12/24/2024 17:35 12/24/2024 ADDENDUM STATUS: COMPLETED Entered on worng patient /shanita/ ROLO CARDOZO RN [place] [facility] Signed: 12/24/2024 17:36 ROLO CARDOZO [facility]
--- OUTSIDE RECORDS SUMMARY | 2024-12-26 09:13 | XMS_ITS | Continuity of Care Document ---
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 It does not include entries that were removed or entered in error. Problem Status Onset Date Problem Type Date of Resolution Comments Source Lung cancer (SNOMED CT 82079868) Active 05/15/19 20 Condition May 01, 2020 Entered By: SHASTA GARDNER Comment: stage IIIa, poorly diferent. adenocarcnomaFeb 2020 Entered By: SHASTA GARDNER Comment: RUL [place] [facility] Abdominal wall pain Active Condition [place] [facility] Allergic Rhinitis (SCT 85841000) Active Condition [place] [facility] Angina Active Condition [place] [facility] Bladder cancer Active Condition [place] [facility] CAD - Coronary artery disease Active Condition Mar 15, 2021 Entered By: SHASTA GARDNER Comment: stress echo normal pr 2023 Entered By: SHASTA GARDNER Comment: LAD stent 2022 (total 3 stent) [place] [facility] Chronic neck pain Active Condition [place] [facility] Claudication Active Condition [facility] COPD - Chronic obstructive pulmonary disease Active Condition Jul 12 25 Entered By: SHASTA GARDNER Comment: stage 2 GOLD [place] [facility] Diabetic neuropathy Active Condition [facility] Dysphagia Active Condition [place] [facility] Epistaxis Active Condition [place] [facility] Erectile Dysfunction (SCT 066897375) Active Condition [place] [facility] Exposure to potentially hazardous substance Active Condition [facility] HTN - Hypertension (SNOMED CT 32968073) Active Condition [facility] Hyperlipidemia Active Condition [facility] Hypothyroidism Active Condition Jul 142021 Entered By: SHASTA GARDNER Comment: managed by director intelligence analysis programs [place] [facility] Peripheral arterial occlusive disease Active Condition May 01 Entered By: SHASTA GARDNER Comment: bilateral fem artery stents 04/15/2020Feb 17, 2021 Entered By: SHASTA GARDNER Comment: right LE thrombectomyMay 27, 2024 Entered By: SHASTA GARDNER Comment: Left percutaneous arthrectomy left SFA popliteal 05/01/24 [place] [facility] Polyp of colon Active Condition [place] [facility] Sleep Apnea (SCT 14058420) Active Condition Jun 02, 2021 Entered By: SHASTA GARDNER Comment: CPAP [place] [facility] Slow transit constipation Active Condition [place] [facility] Traumatic arteriovenous fistula Active Condition Aug 16, 2023 Entered By: SHASTA GARDNER Comment: right lower ext [place] [facility] Type 2 diabetes mellitus (SNOMED CT 15243893) Active Condition [facility] Abdominal Pain of the Left Lower Quadrant (ICD-9-CM 789.04) Inactive Condition 02/24/2016 [place] [facility] Abdominal Pain of the Right Upper Quadrant (ICD-9-CM 789.01) Inactive Condition 02/24/2016 [place] [facility] Acute bronchitis (ICD-9-CM 466.0) Inactive Condition 02/24/2016 [place] [facility] Diphtheria-TETANU S-Pertussis Combined (DPT)(DtaP) - Diphtheria-tetanu s-pertussis Inactive Condition 07/06/2020 [facility] Heart Murmurs * (ICD-9-CM 785.2) Inactive Condition 02/24/2016 [place] [facility] Hematuria * (ICD-9-CM 599.7) Inactive Condition 02/24/2016 [place] [facility] Laboratory Examination Ordered as part of a Routine General Medical Examination Inactive Condition 02/24/2016 [place] [facility] Malignant neoplasm of bladder (ICD-9-CM 188.9) Inactive Condition 05/31/2017 [facility] Multi vessel coronary artery disease Inactive Condition 02/24/2016 [facility] Obesity Inactive Condition 12/01/2020 [place] [facility] Palpitations Inactive Condition 12/01/2020 [facility] Peripheral vascular disease Inactive Condition 07/30/2018 [facility] Routine General Medical Examination at a Health Care Facility * (ICD-9-CM V70.0) Inactive Condition 02/24/2016 [facility] Screening for Thyroid Disorders Inactive Condition 02/24/2016 [facility] VACCIN FOR INFLUENZA - Need for prophylactic vaccination and inoculation, influe Inactive Condition 02/24/2016 [facility] Diagnosis: ICD-10-CM M54.50 Low back pain, unspecified Active Diagnosis [facility] Diagnosis: ICD-10-CM R10.31 Right lower quadrant pain Active Diagnosis [facility] Diagnosis: ICD-10-CM E11.9 Type 2 diabetes mellitus without complications Active Diagnosis [facility] Diagnosis: ICD-10-CM I25.10 Athscl heart disease of [place] coronary artery w/o ang pctrs Active Diagnosis [facility] Diagnosis: ICD-10-CM Z23 Encounter for immunization Active Diagnosis [facility] Diagnosis: ICD-10-CM G47.30 Sleep apnea, unspecified Active Diagnosis [facility] Medications Combined list of outpatient medications from Department of Defense and Veterans Affairs facilities.Medications provided include 1) outpatient medications from the last 15 months, and 2) patient-reported medications. Medication Details Route Status Patient Instructions Prescription Expires Prescription Number Last Dispense Date Ordering Provider Order Date Order Qty Source ALBUTEROL SO4 90MCG/ACTUA T (CFC-F) INHL,ORAL,8 .5GM INHALE 2 PUFFS BY ORAL INHALATI ON EVERY 4 TO 6 HOURS NEEDED FOR 90 DAYS SHAKE WELL. RINSE MOUTHPIE CE FREQUENT LY TO PREVENT CLOGGING . RESPIR ATORY (INHAL ATION) ACTIVE 08/06/2025 [id number] ANGEL RODAS AN I 2024 3 [facility] ASPIRIN 81MG TAB,EC TAKE ONE TABLET BY MOUTH ONCE A DAY FOR HEART OR CIRCULAT ION. TAKE WITH FOOD. ORAL ACTIVE 02/13/2025 [id number] 5 DONTA GARDNERMY 2023 120 [facility] ASPIRIN 81MG TAB,EC TAKE ONE TABLET BY MOUTH ONCE A DAY FOR HEART OR CIRCULAT ION. TAKE WITH FOOD. ORAL DISCONT INUED 10/20/2023 [id number] 4 NEELAM BALL 2022 120 [facility] ATORVASTATI N CA 80MG TAB TAKE ONE-HALF TABLET BY MOUTH EVERY EVENING ORAL ACTIVE 07/11/2025 [id number] 5 KENDRA, SHASTA 2024 45 [facility] ATORVASTATI N CA 80MG TAB TAKE ONE-HALF TABLET BY MOUTH EVERY EVENING ORAL DISCONT INUED 04/27/2024 [id number] 4 KENDRA, SHASTA 2023 45 [facility] CETIRIZINE HCL 10MG TAB TAKE ONE TABLET BY MOUTH ONCE A DAY FOR ALLERGY SYMPTOMS . ORAL ACTIVE 09/12/2025 [id number] 5 KENDRA, SHASTA 2024 90 [facility] CETIRIZINE HCL 10MG TAB TAKE ONE TABLET BY MOUTH ONCE A DAY FOR ALLERGY SYMPTOMS . ORAL DISCONT INUED 08/23/2024 [id number] 5 KENDRA, SHASTA 2023 90 [facility] CHOLECALCIF VIKTORIA 25MCG (1,000UNIT) TAB TAKE ONE TABLET BY MOUTH ONCE A DAY FOR VITAMIN D DEFICIEN CY. ORAL ACTIVE 07/24/2025 [id number] 5 KENDRA, SHASTA 2024 100 [facility] CHOLECALCIF VIKTORIA 25MCG (1,000UNIT) TAB TAKE ONE TABLET BY MOUTH ONCE A DAY FOR VITAMIN D DEFICIEN CY. ORAL DISCONT INUED 04/27/2024 [id number] 4 KENDRA, SHASTA 2023 100 [facility] CILOSTAZOL 100MG TAB TAKE ONE TABLET BY MOUTH TWICE A DAY TAKE 30 MINUTES BEFORE OR AT LEAST 2 HOURS AFTER FOOD. DO NOT TAKE WITH GRAPEFRU IT JUICE. ORAL ACTIVE 09/18/2025 [id number] 5 KENDRA, SHASTA 2024 60 [place] [facility] CILOSTAZOL 100MG TAB TAKE ONE TABLET BY MOUTH TWICE A DAY TAKE 30 MINUTES BEFORE OR AT LEAST 2 HOURS AFTER FOOD. DO NOT TAKE WITH GRAPEFRU IT JUICE. ORAL DISCONT INUED 01/01/2025 [id number] 5 [facility] 2023 60 [facility] CILOSTAZOL 100MG TAB TAKE ONE TABLET BY MOUTH TWICE A DAY TAKE 30 MINUTES BEFORE OR AT LEAST 2 HOURS AFTER FOOD. DO NOT TAKE WITH GRAPEFRU IT JUICE. ORAL DISCONT INUED 05/17/2024 [id number] 4 [facility] 2023 60 [facility] CLOPIDOGREL BISULFATE 75MG TAB TAKE ONE TABLET BY MOUTH ONCE A DAY ORAL ACTIVE 03/08/2025 [id number] RADHA BLAKE 2023 90 [place] [facility] DOXYCYCLINE HYCLATE 100MG TAB TAKE ONE TABLET BY MOUTH TWICE A DAY TAKE UNTIL FINISHED . AVOID SUN EXPOSURE WHILE TAKING. ORAL DISCONT INUED 11/11/2023 [id number] 4 DATARFRANCOIS 2023 10 [place] [facility] EMPAGLIFLOZ IN 25MG TAB TAKE ONE TABLET BY MOUTH ONCE A DAY FOR DIABETES ORAL DISCONT INUED BY PROVIDE R 09/29/2024 [id number] 4 [facility] 2023 90 [facility] FLUTICASONE PROPIONATE 50MCG/SPRAY SOLN,NASAL, 16GM INSTILL 2 SPRAYS IN NOSTRIL( S) ONCE A DAY FOR CHRONIC RHINOSIN USITIS (MUST BE USED DIRECTED FOR MINIMUM OF 21 DAYS TO PROVIDE ADEQUATE BENEFITS ) NASAL ACTIVE 01/01/2025 [id number] [facility] 2023 3 [facility] GABAPENTIN 100MG CAP TAKE ONE CAPSULE BY MOUTH THREE TIMES A DAY ORAL 12/11/2024 [id number] 5 Wally [place] USSAIN 2023 270 [place] [facility] GUAIFENESIN 600MG TAB,SA TAKE ONE TABLET BY MOUTH THREE TIMES PER WEEK FOR MUCUS THINNING TAKE WITH 8 OUNCE GLASS OF WATER. ORAL ACTIVE 02/06/2025 [id number] 5 [facility] 2023 40 [facility] GUAIFENESIN 600MG TAB,SA TAKE ONE TABLET BY MOUTH THREE TIMES PER WEEK FOR MUCUS THINNING TAKE WITH 8 OUNCE GLASS OF WATER. ORAL DISCONT INUED 11/25/2023 [id number] 4 DATARFRANCOIS 2022 40 [place] [facility] HYDROCORTIS ONE 2.5% CREAM,TOP APPLY SPARINGL Y TO AFFECTED AREA(S) FOUR TIMES A DAY FOR ITCHING FOR EXTERNAL USE ONLY. APPLY SPARINGL Y. TOPICA L 11/08/2023 [id number] [facility] 2022 30 [facility] INSULIN SYRINGE 0.5ML 31G 8MM USE SYRINGE UNDER THE SKIN ONCE A DAY FOR INSULIN INJECTIO N SUBCUT ANEOUS ACTIVE 06/06/2025 [id number] 5 [facility] 2024 100 [facility] INSULIN SYRINGE 0.5ML 31G 8MM USE SYRINGE UNDER THE SKIN ONCE A DAY FOR INSULIN INJECTIO N SUBCUT ANEOUS DISCONT INUED 05/17/2024 [id number] 4 [facility] 2023 100 [facility] INSULIN,ASP ART,HUMAN (EQV-NOVOLO G) 100 UNIT/ML,FLE XPEN,3ML INJECT 20 UNITS UNDER THE SKIN THREE TIMES A DAY BEFORE MEALS ADMINIST ER 10 MINUTES BEFORE FOOD DIRECTED . REFRIGER ATE UN-OPENE D PENS. DISCARD CARTRIDG E 28 DAYS AFTER OPENING. SUBCUT ANEOUS ACTIVE 09/26/2025 [id number] 5 KAREEM GARVEY RUI 2024 5 [place] [facility] INSULIN,ASP ART,HUMAN (EQV-NOVOLO G) 100 UNIT/ML,FLE XPEN,3ML INJECT 20 UNITS UNDER THE SKIN THREE TIMES A DAY BEFORE MEALS ADMINIST ER 10 MINUTES BEFORE FOOD DIRECTED . REFRIGER ATE UN-OPENE D PENS. DISCARD CARTRIDG E 28 DAYS AFTER OPENING. SUBCUT ANEOUS DISCONT INUED 09/12/2024 [id number] 4 KAREEM GARVEY RUI 2023 20 [place] [facility] INSULIN,ASP ART,HUMAN (EQV-NOVOLO G) 100 UNIT/ML,FLE XPEN,3ML INJECT 20 UNITS UNDER THE SKIN BEFORE MEAL(S) FOR BLOOD SUGAR CONTROL. ADMINIST ER 10 MINUTES BEFORE FOOD DIRECTED . REFRIGER ATE UN-OPENE D PENS. DISCARD CARTRIDG E 28 DAYS AFTER OPENING. SUBCUT ANEOUS DISCONT INUED 09/04/2024 [id number] 4 [facility] 2023 5 [facility] INSULIN,GLA RGINE,HUMAN 100 UNT/ML INJ INJECT 40 UNITS UNDER THE SKIN ONCE A DAY TO CONTROL BLOOD SUGAR. ADMINIST ER AT SAME TIME EACH DAY DIRECTED . DISCARD ANY VIAL 28 DAYS AFTER OPENING. SUBCUT ANEOUS ACTIVE 06/26/2025 [id number] 5 [facility] 2024 4 [facility] INSULIN,GLA RGINE,HUMAN 100 UNT/ML INJ INJECT 40 UNITS UNDER THE SKIN ONCE A DAY TO CONTROL BLOOD SUGAR. ADMINIST ER AT SAME TIME EACH DAY DIRECTED . DISCARD ANY VIAL 28 DAYS AFTER OPENING. SUBCUT ANEOUS DISCONT INUED 06/06/2024 [id number] 4 JAX BERGER LLPAUM R 2023 4 [facility] ISOSORBIDE MONONITRATE 60MG TAB,SA TAKE ONE AND ONE-HALF TABLETS BY MOUTH ONCE A DAY AT 8AM TO PREVENT CHEST PAIN. TAKE ON EMPTY STOMACH. SWALLOW WHOLE. DO NOT CRUSHOR CHEW. ORAL ACTIVE 05/14/2025 [id number] 5 [facility] SHASTA 2024 135 [facility] ISOSORBIDE MONONITRATE 60MG TAB,SA TAKE ONE AND ONE-HALF TABLETS BY MOUTH ONCE A DAY AT 8AM TO PREVENT CHEST PAIN. TAKE ON EMPTY STOMACH. SWALLOW WHOLE. DO NOT CRUSHOR CHEW. ORAL DISCONT INUED 08/01/2024 [id number] 4 [facility] SHASTA 2023 135 [place] [facility] LEVOTHYROXI NE NA 175MCG TAB TAKE ONE TABLET BY MOUTH EVERY MORNING BEFORE A MEAL FOR HYPOTHYR OIDISM TAKE 30 MINUTES BEFORE FOOD. TAKE SEPARATE LY FROM ALL OTHER MEDICATI ONS. ORAL ACTIVE 03/17/2025 [id number] 5 [facility], SHASTA [address] [place] [address] [facility] LEVOTHYROXI NE NA 175MCG TAB TAKE ONE TABLET BY MOUTH EVERY MORNING BEFORE A MEAL FOR HYPOTHYR OIDISM TAKE 30 MINUTES BEFORE FOOD. TAKE SEPARATE LY FROM ALL OTHER MEDICATI ONS. ORAL DISCONT INUED 12/16/2024 [id number] 5 [facility] [address] [place] [address] [facility] LEVOTHYROXI NE NA 175MCG TAB TAKE ONE TABLET BY MOUTH EVERY MORNING BEFORE A MEAL FOR HYPOTHYR OIDISM TAKE 30 MINUTES BEFORE FOOD. TAKE SEPARATE LY FROM ALL OTHER MEDICATI ONS. ORAL DISCONT INUED 09/15/2024 [id number] 5 [facility] SHASTA [address] [place] [address] [facility] LEVOTHYROXI NE NA 175MCG TAB TAKE ONE TABLET BY MOUTH EVERY MORNING BEFORE A MEAL FOR HYPOTHYR OIDISM TAKE 30 MINUTES BEFORE FOOD. TAKE SEPARATE LY FROM ALL OTHER MEDICATI ONS. ORAL DISCONT INUED 06/10/2024 [id number] 4 [facility] SHASTA [address] [place] [address] [facility] LEVOTHYROXI NE NA 175MCG TAB (SYNTHROID) TAKE ONE TABLET BY MOUTH EVERY MORNING BEFORE A MEAL FOR HYPOTHYR OIDISM TAKE 30 MINUTES BEFORE FOOD. TAKE SEPARATE LY FROM ALL OTHER MEDICATI ONS. ORAL DISCONT INUED 03/04/2024 [id number] 4 [facility] SHAST[facility] [address] [place] [address] [facility] LIDOCAINE 5% OINT,TOP APPLY LIGHTLY TO AFFECTED AREA(S) TWICE A DAY FOR PAIN TOPICA L 06/10/2024 [id number] 4 [facility] 2023 35 [facility] LOSARTAN 50MG TAB TAKE ONE AND ONE-HALF TABLETS BY MOUTH ONCE A DAY ORAL ACTIVE 11/08/2025 [id number] 5 Wally [facility] USSAIN 2024 135 [place] [facility] LOSARTAN 50MG TAB TAKE ONE AND ONE-HALF TABLETS BY MOUTH ONCE A DAY ORAL DISCONT INUED 09/07/2024 [id number] 5 Wally [place] USSAIN 2023 135 [place] [facility] METFORMIN HCL 500MG 24HR TAB,SA TAKE ONE TABLET BY MOUTH TWICE A DAY TAKE WITH FOOD. AVOID ALCOHOL. DISCONTI NUE BEFORE GETTING XRAY DYE. ORAL ACTIVE 10/16/2025 [id number] 5 MARE,SERNA RUI 2024 180 [place] [facility] METFORMIN HCL 500MG 24HR TAB,SA TAKE ONE TABLET BY MOUTH TWICE A DAY TAKE WITH FOOD. AVOID ALCOHOL. DISCONTI NUE BEFORE GETTING XRAY DYE. ORAL DISCONT INUED 06/08/2025 [id number] 5 KAREEM GARVEY RUI 2024 180 [place] [facility] METFORMIN HCL 850MG TAB TAKE ONE TABLET BY MOUTH TWICE A DAY FOR BLOOD SUGAR CONTROL. TAKE WITH FOOD. AVOID ALCOHOL. DISCONTI NUE BEFORE GETTING XRAY DYE. ORAL 12/05/2024 [id number] 4 SHASTA GARDNER 2023 180 [facility] MOMETASONE FUROATE 100MCG/ACTU AT INHL,ORAL,1 20D,13GM INHALE 1 PUFF ORAL INHALATI ON TWICE A DAY SHAKE WELL. RINSE MOUTH OUT WITH WATER AND SPIT AFTER EACH DOSE. CLEAN MOUTHPIE CE WITH DRY WIPE AFTER EVERY 7 DAYS OF USE. RESPIR ATORY (INHAL ATION) DISCONT INUED 12/11/2023 [id number] FRANCOIS HERNANDEZ 2023 1 [place] [facility] MOMETASONE FUROATE 100MCG/ACTU AT INHL,ORAL,1 20D,13GM INHALE 1 PUFF ORAL INHALATI ON TWICE A DAY SHAKE WELL. RINSE MOUTH OUT WITH WATER AND SPIT AFTER EACH DOSE. CLEAN MOUTHPIE CE WITH DRY WIPE AFTER EVERY 7 DAYS OF USE. RESPIR ATORY (INHAL ATION) 04/06/2024 [id number] 4 KENDRA, SHASTA 2023 1 [place] [facility] MULTIVITAMI NS CAP/TAB TAKE 1 TABLET BY MOUTH ONCE A DAY FOR SUPPLEME NTATION. ORAL ACTIVE 06/12/2025 [id number] 5 KENDRA, SHASTA 2024 100 [place] [facility] MULTIVITAMI NS CAP/TAB TAKE 1 TABLET BY MOUTH ONCE A DAY FOR SUPPLEME NTATION. ORAL DISCONT INUED 04/27/2024 [id number] 4 KENDRA, SHASTA 2022 100 [facility] OLODATEROL 2.5MCG/TIOT ROPIUM 2.5MCG/ACTU AT INHL,ORAL,6 0D,4GM INHALE 2 PUFFS BY ORAL INHALATI ON ONCE A DAY FOR 90 DAYS ADMINIST ER AT SAME TIME EACH DAY RESPIR ATORY (INHAL ATION) ACTIVE 08/06/2025 [id number] ANGEL RODAS I 2024 3 [place] [facility] OLODATEROL 2.5MCG/TIOT ROPIUM 2.5MCG/ACTU AT INHL,ORAL,6 0D,4GM INHALE 2 PUFFS ORAL INHALATI ON ONCE A DAY ADMINIST ER AT SAME TIME EACH DAY RESPIR ATORY (INHAL ATION) DISCONT INUED 02/14/2025 [id number] 4 KENDRA, SHASTA 2023 3 [facility] OLODATEROL 2.5MCG/TIOT ROPIUM 2.5MCG/ACTU AT INHL,ORAL,6 0D,4GM INHALE 2 PUFFS ORAL INHALATI ON ONCE A DAY ADMINIST ER AT SAME TIME EACH DAY RESPIR ATORY (INHAL ATION) DISCONT INUED 10/12/2024 [id number] FRANCOIS HERNANDEZ 2023 1 [place] [facility] POLYETHYLEN E GLYCOL 3350 PWDR,ORAL MIX AND DRINK 2 CAPFULS BY MOUTH ONCE A DAY FOR CONSTIPA TION (MEASURE WITH CAP AND MIX IN 8 OZ OF WATER) ORAL ACTIVE 12/17/2025 [id number] 5 KYLE CONNOLLY ISTEL G 2024 3060 [facility] POLYETHYLEN E GLYCOL 3350 PWDR,ORAL MIX AND DRINK 1 CAPFUL BY MOUTH ONCE A DAY TO PREVENT CONSTIPA TION. (MEASURE WITH CAP AND MIX IN 8 OZ OF WATER) ORAL DISCONT INUED 02/12/2025 [id number] 5 JAX BERGER LLIAM R 2023 510 [facility] POLYETHYLEN E GLYCOL 3350 PWDR,ORAL MIX AND DRINK 1 CAPFUL BY MOUTH ONCE A DAY TO PREVENT CONSTIPA TION. (MEASURE WITH CAP AND MIX IN 8 OZ OF WATER) ORAL DISCONT INUED 02/01/2024 [id number] 4 JAX BERGER LLIAM R 2022 510 [facility] PREDNISONE 10MG TAB TAKE TWO TABLETS BY MOUTH ONCE A DAY FOR 3 DAYS, THEN TAKE ONE TABLET ONCE A DAY FOR 5 DAYS TAKE WITH FOOD OR MILK. ORAL 11/11/2023 [id number] DATARFRANCOIS 2023 11 [facility] Immunizations Combined list of available immunizations from the Department of Defense and Veterans Affairs facilities. Immunization Series Date Given Administered By Site Reaction Lot Number CVX Code Drug Cutter And Paster Press Clippings Status Comments Source INFLUENZA, HIGH-DOSE, TRIVALENT, PF 2023 MELANI CHANG R LEFT GLUTE US MEDIU S [id number] 135 complet ed [facility] INFLUENZA, HIGH-DOSE, QUADRIVALENT 2022 ROD RAMSEY D LEFT DELTO ID [id number] 197 complet ed [facility] COVID-19, MRNA, LNP-S, BIVALENT BOOSTER, PF, 50 MCG/0.5 ML OR 25MCG/0.25 ML DOSE 1 2021 229 complet ed MOD; [id number]; 3 [facility] INFLUENZA, INJECTABLE, QUADRIVALENT, PRESERVATIVE FREE 2021 150 complet ed [facility] INFLUENZA, INJECTABLE, QUADRIVALENT, PRESERVATIVE FREE 2020 150 complet ed [facility] COVID-19 (KRISTINE), VECTOR-NR, [id number], PF, 0.5 ML 1 2020 212 complet ed JSN; [id number]; 1 [facility] INFLUENZA, INJECTABLE, QUADRIVALENT, PRESERVATIVE FREE 2019 150 complet ed [facility] INFLUENZA, INJECTABLE, QUADRIVALENT, PRESERVATIVE FREE 2018 150 complet ed [place] [facility] TDAP 2018 115 complet ed [facility] INFLUENZA, INJECTABLE, QUADRIVALENT, PRESERVATIVE FREE 2018 150 complet ed [facility] ZOSTER RECOMBINANT 2 2018 187 complet ed [facility] ZOSTER RECOMBINANT 1 2017 187 complet ed [facility] INFLUENZA, SEASONAL, INJECTABLE, PRESERVATIVE FREE 2017 140 complet ed Right Deltoid [facility] INFLUENZA, SEASONAL, INJECTABLE, PRESERVATIVE FREE 2015 140 complet ed [facility] PNEUMOCOCCAL POLYSACCHARID E PPV23 2015 33 complet ed [facility] INFLUENZA, SEASONAL, INJECTABLE, PRESERVATIVE FREE 2014 140 complet ed [facility] PNEUMOCOCCAL CONJUGATE PCV 13 2014 133 complet [facility] ZOSTER LIVE 2014 121 complet ed [place] [facility] INFLUENZA, UNSPECIFIED FORMULATION 2013 88 complet ed [facility] INFLUENZA, UNSPECIFIED FORMULATION 2012 88 complet ed [facility] INFLUENZA, UNSPECIFIED FORMULATION 2010 88 complet ed [facility] INFLUENZA, UNSPECIFIED FORMULATION 2010 88 complet ed [facility] OUTSIDE PNEUMOVAX (HISTORICAL) 2007 109 complet ed [facility] Results Combined list of recent chemistry, hematology and other laboratory results from Department of Defense and Veterans Affairs, ranging from 15 months to all on record, depending upon the facility. Order Name Results Value Reference Range Date Interpretation Specimen Comments Source HGA1C HEMOGLOBIN A1C/HEMOGLO BIN.TOTAL IN BLOOD 7.0 4.0 - 6.0 12/16 H Specimen Type: BLOOD No comment entered. Ordering Provider: SHASTA GARDNER Report Released Date/Time : Jan 01, 2024 10:42 AM Reporting Lab: [place] [facility] [address] [place] [address] Performin g Lab: [place] [facility] [address] [place] [address] [facility] URINE ALBUMIN PROFILE-ih (PB) ALBUMIN [MASS/VOLUM E] IN URINE 12.63 mg/L 12/16 Specimen Type: URINE No comment entered. Ordering Provider: SHASTA GARDNER Report Released Date/Time : Jan 01, 2024 10:42 AM Reporting Lab: [place] [facility] [address] [place] [address] Performin g Lab: [place] [facility] [address] [place] [address] [facility] URINE ALBUMIN PROFILE-ih (PB) ALBUMIN/CRE ATININE [MASS RATIO] IN URINE 18.42 mg/g 0 - 30 12/16 Specimen Type: URINE No comment entered. Ordering Provider: SHASTA GARDNER Report Released Date/Time : Jan 01, 2024 10:42 AM Reporting Lab: [place] [facility] [address] [place] [address] Performin g Lab: [place] [facility] [address] [place] [address] [facility] URINE ALBUMIN PROFILE-ih (PB) CREATININE [MASS/VOLUM E] IN URINE 68.56 mg/dL 12/16 Specimen Type: URINE No comment entered. Ordering Provider: SHASTA GARDNER Report Released Date/Time : Jan 01, 2024 10:42 AM Reporting Lab: [place] [facility] [address] [place] [address] Performin g Lab: [place] [facility] [address] [place] [address] [facility] TSH (MA-PB) THYROTROPIN [UNITS/VOLU ME] IN SERUM OR PLASMA 0.142 u[IU]/mL 0.47 - 5 12/16 L Specimen Type: SERUM No comment entered. Ordering Provider: SHASTA GARDNER Report Released Date/Time : Jan 01, 2024 10:42 AM Reporting Lab: [place] [facility] [address] [place] [address] Performin g Lab: [place] [facility] [address] [place] [address] [facility] TSH (MA-PB) THYROXINE (T4) FREE [MASS/VOLUM E] IN SERUM OR PLASMA 1.33 ng/dL 0.7 - 1.48 12/16 Specimen Type: SERUM No comment entered. Ordering Provider: SHASTA GARDNER Report Released Date/Time : Jan 01, 2024 10:42 AM Reporting Lab: [place] [facility] [address] [place] [address] 8 Performin g Lab: [place] [facility] [address] [place] [address] 8 [facility] CHOLESTERO L PANEL (PB) CHOLESTEROL [MASS/VOLUM E] IN SERUM OR PLASMA 91 mg/dL 0 - 200 12/16 Specimen Type: PLASMA No comment entered. Ordering Provider: SHASTA GARDNER Report Released Date/Time : Jan 01, 2024 10:42 AM Reporting Lab: [place] [facility] [address] [place] [address] 8 Performin g Lab: [place] [facility] [address] [place] [address] 8 [facility] CHOLESTERO L PANEL (PB) TRIGLYCERID E [MASS/VOLUM E] IN SERUM OR PLASMA 67 mg/dL 0 - 150 12/16 Specimen Type: PLASMA No comment entered. Ordering Provider: SHASTA GARDNER Report Released Date/Time : Jan 01, 2024 10:42 AM Reporting Lab: [place] [facility] [address] [place] [address] 8 Performin g Lab: [place] [facility] [address] [place] [address] 8 [facility] CHOLESTERO L PANEL (PB) CHOLESTEROL IN LDL [MASS/VOLUM E] IN SERUM OR PLASMA BY CALCULATION 37.6 mg/dL 12/16 Specimen Type: PLASMA No comment entered. Ordering Provider: SHASTA GARDNER Report Released Date/Time : Jan 01, 2024 10:42 AM Reporting Lab: [place] [facility] [address] [place] [address] 8 Performin g Lab: [place] [facility] [address] [place] [address] 8 [facility] CHOLESTERO L PANEL (PB) CHOLESTEROL IN HDL [MASS/VOLUM E] IN SERUM OR PLASMA 40.0 mg/dL 40 12/16 H Specimen Type: PLASMA No comment entered. Ordering Provider: SHASTA GARDNER Report Released Date/Time : Jan 01, 2024 10:42 AM Reporting Lab: [place] [facility] [address] [place] [address] 8 Performin g Lab: [place] [facility] [address] [place] [address] 8 [facility] CHOLESTERO L PANEL (PB) CHOLESTEROL IN HDL/CHOLEST VIKTORIA.TOTAL [MASS RATIO] IN SERUM OR PLASMA 44.0 25 12/16 Specimen Type: PLASMA No comment entered. Ordering Provider: SHASTA GARDNER Report Released Date/Time : Jan 01, 2024 10:42 AM Reporting Lab: [place] [facility] [address] [place] [address] 8 Performin g Lab: [place] [facility] [address] [place] [address] 8 [facility] COMPREHENS BALDOMERO METABOLIC PANEL CREATININE [MASS/VOLUM E] IN SERUM OR PLASMA 0.61 mg/dL 0.7 - 1.3 12/16 L Specimen Type: PLASMA No comment entered. Ordering Provider: SHASTA GARDNER Report Released Date/Time : Jan 01, 2024 10:42 AM Reporting Lab: [place] [facility] [address] [place] [address] 8 Performin g Lab: [place] [facility] [address] [place] [address] 8 [facility] COMPREHENS BALDOMERO METABOLIC PANEL UREA NITROGEN [MASS/VOLUM E] IN SERUM OR PLASMA 9 mg/dL 9 - 25 12/16 Specimen Type: PLASMA No comment entered. Ordering Provider: SHASTA GARDNER Report Released Date/Time : Jan 01, 2024 10:42 AM Reporting Lab: [place] [facility] [address] [place] [address] 8 Performin g Lab: [place] [facility] [address] [place] [address] 8 [facility] [place] [facility] COMPREHENS BALDOMERO METABOLIC PANEL GLUCOSE [MASS/VOLUM E] IN SERUM OR PLASMA 159 mg/dL 72 - 99 12/16 H Specimen Type: PLASMA No comment entered. Ordering Provider: SHASTA GARDNER Report Released Date/Time : Jan 01, 2024 10:42 AM Reporting Lab: [place] [facility] [address] [place] [address] 8 Performin g Lab: [place] [facility] [address] [place] [address] 8 [facility] COMPREHENS BALDOMERO METABOLIC PANEL SODIUM [MOLES/VOLU ME] IN SERUM OR PLASMA 139 meq/L 136 - 145 12/16 Specimen Type: PLASMA No comment entered. Ordering Provider: SHASTA GARDNER Report Released Date/Time : Jan 01, 2024 10:42 AM Reporting Lab: [place] [facility] [address] [place] [address] 8 Performin g Lab: [place] [facility] [address] [place] [address] 8 [facility] COMPREHENS BALDOMERO METABOLIC PANEL POTASSIUM [MOLES/VOLU ME] IN SERUM OR PLASMA 4.6 meq/L 3.5 - 5 12/16 Specimen Type: PLASMA No comment entered. Ordering Provider: SHASTA GARDNER Report Released Date/Time : Jan 01, 2024 10:42 AM Reporting Lab: [place] [facility] [address] [place] [address] 8 Performin g Lab: [place] [facility] [address] [place] [address] 8 [facility] COMPREHENS BALDOMERO METABOLIC PANEL CHLORIDE [MOLES/VOLU ME] IN SERUM OR PLASMA 102 meq/L 98 - 107 12/16 Specimen Type: PLASMA No comment entered. Ordering Provider: SHASTA GARDNER Report Released Date/Time : Jan 01, 2024 10:42 AM Reporting Lab: [place] [facility] [address] [place] [address] 8 Performin g Lab: [place] [facility] [address] [place] [address] 8 [facility] COMPREHENS BALDOMERO METABOLIC PANEL CARBON DIOXIDE, TOTAL [MOLES/VOLU ME] IN SERUM OR PLASMA 28 meq/L 22 - 31 12/16 Specimen Type: PLASMA No comment entered. Ordering Provider: SHASTA GARDNER Report Released Date/Time : Jan 01, 2024 10:42 AM Reporting Lab: [place] [facility] [address] [place] [address] 8 Performin g Lab: [place] [facility] [address] [place] [address] 8 [facility] COMPREHENS BALDOMERO METABOLIC PANEL CALCIUM [MASS/VOLUM E] IN SERUM OR PLASMA 9.3 mg/dL 8.4 - 10.4 12/16 Specimen Type: PLASMA No comment entered. Ordering Provider: SHASTA GARDNER Report Released Date/Time : Jan 01, 2024 10:42 AM Reporting Lab: [place] [facility] [address] [place] [address] 8 Performin g Lab: [place] [facility] [address] [place] [address] 8 [facility] COMPREHENS BALDOMERO METABOLIC PANEL PROTEIN [MASS/VOLUM E] IN SERUM OR PLASMA 7.2 g/dL 6 - 8.6 12/16 Specimen Type: PLASMA No comment entered. Ordering Provider: SHASTA GARDNER Report Released Date/Time : Jan 01, 2024 10:42 AM Reporting Lab: [place] [facility] [address] [place] [address] 8 Performin g Lab: [place] [facility] [address] [place] [address] 8 [facility] COMPREHENS BALDOMERO METABOLIC PANEL ALBUMIN [MASS/VOLUM E] IN SERUM OR PLASMA 4.5 g/dL 3.4 - 5 12/16 Specimen Type: PLASMA No comment entered. Ordering Provider: SHASTA GARDNER Report Released Date/Time : Jan 01, 2024 10:42 AM Reporting Lab: [place] [facility] [address] [place] [address] 8 Performin g Lab: [place] [facility] [address] [place] [address] 8 [facility] COMPREHENS BALDOMERO METABOLIC PANEL BILIRUBIN.T OTAL [MASS/VOLUM E] IN SERUM OR PLASMA 0.2 mg/dL 0.2 - 1.2 12/16 Specimen Type: PLASMA No comment entered. Ordering Provider: SHASTA GARDNER Report Released Date/Time : Jan 01, 2024 10:42 AM Reporting Lab: [place] [facility] [address] [place] [address] 8 Performin g Lab: [place] [facility] [address] [place] [address] 8 [facility] COMPREHENS BALDOMERO METABOLIC PANEL ALKALINE PHOSPHATASE [ENZYMATIC ACTIVITY/VO LUME] IN SERUM OR PLASMA 69 U/L 40 - 150 12/16 Specimen Type: PLASMA No comment entered. Ordering Provider: SHASTA GARDNER Report Released Date/Time : Jan 01, 2024 10:42 AM Reporting Lab: [place] [facility] [address] [place] [address] 8 Performin g Lab: [place] [facility] [address] [place] [address] 8 [facility] COMPREHENS BALDOMERO METABOLIC PANEL ASPARTATE AMINOTRANSF ERASE [ENZYMATIC ACTIVITY/VO LUME] IN SERUM OR PLASMA 16 U/L 5 - 34 12/16 Specimen Type: PLASMA No comment entered. Ordering Provider: SHASTA GARDNER Report Released Date/Time : Jan 01, 2024 10:42 AM Reporting Lab: [place] [facility] [address] [place] [address] 8 Performin g Lab: [place] [facility] [address] [place] [address] 8 [facility] COMPREHENS BALDOMERO METABOLIC PANEL ALANINE AMINOTRANSF ERASE [ENZYMATIC ACTIVITY/VO LUME] IN SERUM OR PLASMA 12 U/L 8 - 40 12/16 Specimen Type: PLASMA No comment entered. Ordering Provider: SHASTA GARDNER Report Released Date/Time : Jan 01, 2024 10:42 AM Reporting Lab: [place] [facility] [address] [place] [address] 8 Performin g Lab: [place] [facility] [address] [place] [address] 8 [facility] COMPREHENS BALDOMERO METABOLIC PANEL GLOMERULAR FILTRATION RATE/1.73 SQ M.PREDICTED [VOLUME RATE/AREA] IN SERUM, PLASMA OR BLOOD BY CREATININE- BASED FORMULA (CKD-EPI 2020) 97 12/16 Specimen Type: PLASMA No comment entered. Ordering Provider: SHASTA GARDNER Report Released Date/Time : Jan 01, 2024 10:42 AM Reporting Lab: [place] [facility] [address] [place] [address] 8 Performin g Lab: [place] [facility] [address] [place] [address] 8 [facility] CBC LEUKOCYTES [#/VOLUME] IN BLOOD BY AUTOMATED COUNT 8.5 10*3/uL 3.6 - 11.2 12/16 Specimen Type: BLOOD No comment entered. Ordering Provider: SHASTA GARDNER Report Released Date/Time : Jan 01, 2024 10:42 AM Reporting Lab: [place] [facility] [address] [place] [address] 8 Performin g Lab: [place] [facility] [address] [place] [address] 8 [facility] CBC ERYTHROCYTE S [#/VOLUME] IN BLOOD BY AUTOMATED COUNT 4.39 10*6/uL 4.10 - 5.70 12/16 Specimen Type: BLOOD No comment entered. Ordering Provider: SHASTA GARDNER Report Released Date/Time : Jan 01, 2024 10:42 AM Reporting Lab: [place] [facility] [address] [place] [address] 8 Performin g Lab: [place] [facility] [address] [place] [address] 8 [facility] CBC HEMOGLOBIN [MASS/VOLUM E] IN BLOOD 13.2 g/dL 13.1 - 16.8 12/16 Specimen Type: BLOOD No comment entered. Ordering Provider: SHASTA GARDNER Report Released Date/Time : Jan 01, 2024 10:42 AM Reporting Lab: [place] [facility] [address] [place] [address] 8 Performin g Lab: [place] [facility] [address] [place] [phone] 8 [facility] CBC HEMATOCRIT [VOLUME FRACTION] OF BLOOD 39.9 38.2 - 48.4 12/16 Specimen Type: BLOOD No comment entered. Ordering Provider: SHASTA GARDNER Report Released Date/Time : Jan 01, 2024 10:42 AM Reporting Lab: [place] [facility] [address] [place] [phone] 8 Performin g Lab: [place] [facility] [address] [place] [phone] 8 [facility] CBC MCV [ENTITIC VOLUME] BY AUTOMATED COUNT 90.9 fL 80.0 - 100.0 12/16 Specimen Type: BLOOD No comment entered. Ordering Provider: SHASTA GARDNER Report Released Date/Time : Jan 01, 2024 10:42 AM Reporting Lab: [place] [facility] [address] [place] [address] 8 Performin g Lab: [place] [facility] [address] [place] [phone] 8 [facility] CBC MCH [ENTITIC MASS] BY AUTOMATED COUNT 30.1 pg 27.0 - 34.0 12/16 Specimen Type: BLOOD No comment entered. Ordering Provider: SHASTA GARDNER Report Released Date/Time : Jan 01, 2024 10:42 AM Reporting Lab: [place] [facility] [address] [place] [phone] 8 Performin g Lab: [place] [facility] [address] [place] [phone] 8 [facility] CBC MCHC [MASS/VOLUM E] BY AUTOMATED COUNT 33.1 g/dL 33.0 - 36.0 12/16 Specimen Type: BLOOD No comment entered. Ordering Provider: SHASTA GARDNER Report Released Date/Time : Jan 01, 2024 10:42 AM Reporting Lab: [place] [facility] [address] [place] [address] 8 Performin g Lab: [place] [facility] [address] [place] [address] 8 [facility] CBC PLATELETS [#/VOLUME] IN BLOOD BY AUTOMATED COUNT 329 10*3/uL 150 - 400 12/16 Specimen Type: BLOOD No comment entered. Ordering Provider: SHASTA GARDNER Report Released Date/Time : Jan 01, 2024 10:42 AM Reporting Lab: [place] [facility] [address] [place] [address] 8 Performin g Lab: [place] [facility] [address] [place] [address] 8 [facility] CBC PLATELET MEAN VOLUME [ENTITIC VOLUME] IN BLOOD BY AUTOMATED COUNT 9.0 fL 7.5 - 11.2 12/16 Specimen Type: BLOOD No comment entered. Ordering Provider: SHASTA GARDNER Report Released Date/Time : Jan 01, 2024 10:42 AM Reporting Lab: [place] [facility] [address] [place] [address] 8 Performin g Lab: [place] [facility] [address] [place] [address] 8 [facility] CBC ERYTHROCYTE DISTRIBUTIO N WIDTH [RATIO] BY AUTOMATED COUNT 13.7 11.8 - 15.1 12/16 Specimen Type: BLOOD No comment entered. Ordering Provider: SHASTA GARDNER Report Released Date/Time : Jan 01, 2024 10:42 AM Reporting Lab: [place] [facility] [address] [place] [address] 8 Performin g Lab: [place] [facility] [address] [place] [address] 8 [facility] CBC LYMPHOCYTES /100 LEUKOCYTES IN BLOOD BY AUTOMATED COUNT 14.6 12/16 Specimen Type: BLOOD No comment entered. Ordering Provider: SHASTA GARDNER Report Released Date/Time : Jan 01, 2024 10:42 AM Reporting Lab: [place] [facility] [address] [place] [address] 8 Performin g Lab: [place] [facility] [address] [place] [address] 8 [facility] CBC MONOCYTES/1 00 LEUKOCYTES IN BLOOD BY AUTOMATED COUNT 8.1 12/16 Specimen Type: BLOOD No comment entered. Ordering Provider: SHASTA GARDNER Report Released Date/Time : Jan 01, 2024 10:42 AM Reporting Lab: [place] [facility] [address] [place] [address] 8 Performin g Lab: [place] [facility] [address] [place] [address] 8 [facility] CBC NEUTROPHILS /100 LEUKOCYTES IN BLOOD BY AUTOMATED COUNT 67.6 12/16 Specimen Type: BLOOD No comment entered. Ordering Provider: SHASTA GARDNER Report Released Date/Time : Jan 01, 2024 10:42 AM Reporting Lab: [place] [facility] [address] [place] [address] 8 Performin g Lab: [place] [facility] [address] [place] [address] 8 [facility] CBC EOSINOPHILS /100 LEUKOCYTES IN BLOOD BY AUTOMATED COUNT 8.5 12/16 Specimen Type: BLOOD No comment entered. Ordering Provider: SHASTA GARDNER Report Released Date/Time : Jan 01, 2024 10:42 AM Reporting Lab: [place] [facility] [address] [place] [address] 8 Performin g Lab: [place] [facility] [address] [place] [address] 8 [facility] CBC BASOPHILS/1 00 LEUKOCYTES IN BLOOD BY AUTOMATED COUNT 0.8 12/16 Specimen Type: BLOOD No comment entered. Ordering Provider: SHASTA GARDNER Report Released Date/Time : Jan 01, 2024 10:42 AM Reporting Lab: [place] [facility] [address] [place] [address] 8 Performin g Lab: [place] [facility] [address] [place] [address] 8 [facility] CBC LYMPHOCYTES [#/VOLUME] IN BLOOD BY AUTOMATED COUNT 1.24 10*3/uL 0.77 - 4.50 12/16 Specimen Type: BLOOD No comment entered. Ordering Provider: SHASTA GARDNER Report Released Date/Time : Jan 01, 2024 10:42 AM Reporting Lab: [place] [facility] [address] [place] [address] 8 Performin g Lab: [place] [facility] [address] [place] [address] 8 [facility] CBC MONOCYTES [#/VOLUME] IN BLOOD BY AUTOMATED COUNT 0.69 10*3/uL 0.19 - 0.8 12/16 Specimen Type: BLOOD No comment entered. Ordering Provider: SHASTA GARDNER Report Released Date/Time : Jan 01, 2024 10:42 AM Reporting Lab: [place] [facility] [address] [place] [address] 8 Performin g Lab: [place] [facility] [address] [place] [address] 8 [facility] CBC NEUTROPHILS [#/VOLUME] IN BLOOD BY AUTOMATED COUNT 5.77 10*3/uL 2.10 - 8.00 12/16 Specimen Type: BLOOD No comment entered. Ordering Provider: SHASTA GARDNER Report Released Date/Time : Jan 01, 2024 10:42 AM Reporting Lab: [place] [facility] [address] [place] [address] 8 Performin g Lab: [place] [facility] [address] [place] [address] 8 [facility] CBC EOSINOPHILS [#/VOLUME] IN BLOOD BY AUTOMATED COUNT 0.72 10*3/uL 0.00 - 0.60 12/16 H Specimen Type: BLOOD No comment entered. Ordering Provider: SHASTA GARDNER Report Released Date/Time : Jan 01, 2024 10:42 AM Reporting Lab: [place] [facility] [address] [place] [address] 8 Performin g Lab: [place] [facility] [address] [place] [address] 8 [facility] CBC BASOPHILS [#/VOLUME] IN BLOOD BY AUTOMATED COUNT 0.07 10*3/uL 0.00 - 0.20 12/16 Specimen Type: BLOOD No comment entered. Ordering Provider: SHASTA GARDNER Report Released Date/Time : Jan 01, 2024 10:42 AM Reporting Lab: [place] [facility] [address] [place] [address] 8 Performin g Lab: [place] [facility] [address] [place] [address] 8 [facility] CBC IMMATURE GRANULOCYTE S/100 LEUKOCYTES IN BLOOD BY AUTOMATED COUNT 0.4 12/16 Specimen Type: BLOOD No comment entered. Ordering Provider: SHASTA GARDNER Report Released Date/Time : Jan 01, 2024 10:42 AM Reporting Lab: [place] [facility] [address] [place] [address] 8 Performin g Lab: [place] [facility] [address] [place] [address] 8 [facility] CBC IMMATURE GRANULOCYTE S [#/VOLUME] IN BLOOD BY AUTOMATED COUNT 0.03 10*3/uL 0.00 - 0.05 12/16 Specimen Type: BLOOD No comment entered. Ordering Provider: SHASTA GARDNER Report Released Date/Time : Jan 01, 2024 10:42 AM Reporting Lab: [place] [facility] [address] [place] [address] 8 Performin g Lab: [place] [facility] [address] [place] [address] 8 [facility] POC UA (STL-PB-MA ) PROTEIN [MASS/VOLUM E] IN URINE BY TEST STRIP Negativem g/dL 12/16 Specimen Type: URINE No comment entered. Ordering Provider: SHASTA GARDNER Report Released Date/Time : Dec 16, 2024 11:51 AM Reporting Lab: [facility] [address] [facility] [address] 6 Performin g Lab: [place] [facility] [address] [place] [address] 6 [place] [facility] POC UA (STL-PB-MA ) HEMOGLOBIN [MASS/VOLUM E] IN URINE BY TEST STRIP Negative 12/16 Specimen Type: URINE No comment entered. Ordering Provider: SHASTA GARDNER Report Released Date/Time : Dec 16, 2024 11:51 AM Reporting Lab: [place] [facility] [address] [facility] [address] 6 [facility]formin [facility]: [place] [facility] [address] [facility] [address] [place] [facility] POC UA (STL-PB-MA ) LEUKOCYTES [PRESENCE] IN URINE Negative 12/16 Specimen Type: URINE No comment entered. Ordering Provider: SHASTA GARDNER Report Released Date/Time : Dec 16, 2024 11:51 AM Reporting Lab: [place] [facility] [address] [facility] [address] 6 Performin g Lab: [place] [facility] [address] [facility] [address] 6 [facility] POC UA (STL-PB-MA ) COLOR OF URINE Yellow 12/16 Specimen Type: URINE No comment entered. Ordering Provider: SHASTA GARDNER Report Released Date/Time : Dec 16, 2024 11:51 AM Reporting Lab: [place] [facility] [address] [facility] [address] 6 Performin g Lab: [place] [facility] [address] [facility] [address] 6 [place] [facility] POC UA (STL-PB-MA ) SPECIFIC GRAVITY OF URINE 1.015 1.005 - 1.030 12/16 Specimen Type: URINE No comment entered. Ordering Provider: SHASTA GARDNER Report Released Date/Time : Dec 16, 2024 11:51 AM Reporting Lab: [place] [facility] [address] [facility] [address] 6 Performin g Lab: [place] [facility] [address] [facility] [address] 6 [place] [facility] POC UA (STL-PB-MA ) UROBILINOGE N [UNITS/VOLU ME] IN URINE 1.0 {Ryan' U}/dL 0.1 - 1.0 12/16 Specimen Type: URINE No comment entered. Ordering Provider: SHASTA GARDNER Report Released Date/Time : Dec 16, 2024 11:51 AM Reporting Lab: [place] [facility] [address] [place] [address] Performin g Lab: [place] [facility] [address] [facility] [address] 6 [place] [facility] POC UA (STL-PB-MA ) BILIRUBIN.T OTAL [PRESENCE] IN URINE Negative 12/16 Specimen Type: URINE No comment entered. Ordering Provider: SHASTA GARDNER Report Released Date/Time : Dec 16, 2024 11:51 AM Reporting Lab: [facility] [address] [facility] [phone] Performin g Lab: [place] [facility] [address] [facility] [address] [place] [facility] POC UA (STL-PB-MA ) KETONES [MASS/VOLUM E] IN URINE BY TEST STRIP Negativem g/dL 12/16 Specimen Type: URINE No comment entered. Ordering Provider: SHASTA GARDNER Report Released Date/Time : Dec 16, 2024 11:51 AM Reporting Lab: [place] [facility] [address] [facility] [address] Performin g Lab: [place] [facility] [address] [facility] [address] 6 [facility] POC UA (STL-PB-MA ) GLUCOSE [MASS/VOLUM E] IN URINE BY TEST STRIP 250 mg/dL 12/16 Specimen Type: URINE No comment entered. Ordering Provider: SHASTA GARDNER Report Released Date/Time : Dec 16, 2024 11:51 AM Reporting Lab: [place] [facility] [address] [facility] [address] Performin g Lab: [place] [facility] [address] [place] [address] [facility] POC UA (STL-PB-MA ) PH OF URINE 7.0 5.0 - 8.0 12/16 Specimen Type: URINE No comment entered. Ordering Provider: SHASTA GARDNER Report Released Date/Time : Dec 16, 2024 11:51 AM Reporting Lab: [facility] [address] [facility] [address] Performin g Lab[facility] [address] [facility] [address] [facility] [address] [facility] POC UA (STL-PB-MA ) NITRITE [PRESENCE] IN URINE BY TEST STRIP Negative 12/16 Specimen Type: URINE No comment entered. Ordering Provider: SHASTA GARDNER Report Released Date/Time : Dec 16, 2024 11:51 AM Reporting Lab: [facility] [address] [facility] [address] Performin g [facility] [facility] [address] [id number] [facility] POC UA (STL-PB-MA ) CLARITY OF URINE Clear 12/16 Specimen Type: URINE No comment entered. Ordering Provider: SHASTA GARDNER Report Released Date/Time : Dec 16, 2024 11:51 AM Reporting Lab: [facility] [address] [facility] [address] [facility] [address] Performin g Lab: [facility] [address] [phone] 6 [facility] URINE ALBUMIN PROFILE-ih (PB) ALBUMIN [MASS/VOLUM E] IN URINE 7.40 mg/L 0 - 30 06/19 Specimen Type: URINE No comment entered. Ordering Provider: SHASTA GARDNER Report Released Date/Time : Jun 19, 2024 11:01 AM Reporting Lab: [place] [facility] [address] [place] [address] Performin g Lab: [place] [facility] [address] [place] [address] [facility] URINE ALBUMIN PROFILE-ih (PB) ALBUMIN/CRE ATININE [MASS RATIO] IN URINE 13.87 ug/mg 06/19 Specimen Type: URINE No comment entered. Ordering Provider: SHASTA GARDNER Report Released Date/Time : Jun 19, 2024 11:01 AM Reporting Lab: [place] [facility] [address] [place] [address] Performin g Lab: [place] [facility] [address] [place] [address] [facility] URINE ALBUMIN PROFILE-ih (PB) CREATININE [MASS/VOLUM E] IN URINE 53.36 mg/dL 06/19 Specimen Type: URINE No comment entered. Ordering Provider: SHASTA GARDNER Report Released Date/Time : Jun 19, 2024 11:01 AM Reporting Lab: [place] [facility] [address] [place] [address] Performin g Lab: [place] [facility] [address] [place] [address] [facility] HGA1C HEMOGLOBIN A1C/HEMOGLO BIN.TOTAL IN BLOOD 7.0 4.0 - 6.0 06/19 H Specimen Type: BLOOD No comment entered. Ordering Provider: SHASTA GARDNER Report Released Date/Time : Jan 01, 2024 10:42 AM Reporting Lab: [place] [facility] [address] [place] [address] Performin g Lab: [place] [facility] [address] [place] [address] [facility] CHOLESTERO L PANEL (PB) CHOLESTEROL [MASS/VOLUM E] IN SERUM OR PLASMA 110 mg/dL 0 - 200 06/19 Specimen Type: PLASMA No comment entered. Ordering Provider: SHASTA GARDNER Report Released Date/Time : Jan 01, 2024 10:42 AM Reporting Lab: [place] [facility] [address] [place] [address] Performin g Lab: [place] [facility] [address] [place] [address] [facility] CHOLESTERO L PANEL (PB) TRIGLYCERID E [MASS/VOLUM E] IN SERUM OR PLASMA 63 mg/dL 0 - 150 06/19 Specimen Type: PLASMA No comment entered. Ordering Provider: SHASTA GARDNER Report Released Date/Time : Jan 01, 2024 10:42 AM Reporting Lab: [place] [facility] [address] [place] [address] Performin g Lab: [place] [facility] [address] [place] [address] [facility] CHOLESTERO L PANEL (PB) CHOLESTEROL IN LDL [MASS/VOLUM E] IN SERUM OR PLASMA BY CALCULATION 51.8 mg/dL 06/19 Specimen Type: PLASMA No comment entered. Ordering Provider: SHASAT GARDNER Report Released Date/Time : Jan 01, 2024 10:42 AM Reporting Lab: [place] [facility] [address] [place] [address] Performin g Lab: [place] [facility] [address] [place] [address] [facility] CHOLESTERO L PANEL (PB) CHOLESTEROL IN HDL [MASS/VOLUM E] IN SERUM OR PLASMA 45.6 mg/dL 40 06/19 H Specimen Type: PLASMA No comment entered. Ordering Provider: SHASTA GARDNER Report Released Date/Time : Jan 01, 2024 10:42 AM Reporting Lab: [place] [facility] [address] [place] [address] Performin g Lab: [place] [facility] [address] [place] [address] [facility] CHOLESTERO L PANEL (PB) CHOLESTEROL IN HDL/CHOLEST VIKTORIA.TOTAL [MASS RATIO] IN SERUM OR PLASMA 41.5 25 06/19 Specimen Type: PLASMA No comment entered. Ordering Provider: SHASTA GARDNER Report Released Date/Time : Jan 01, 2024 10:42 AM Reporting Lab: [place] [facility] [address] [place] [address] Performin g Lab: [place] [facility] [address] [place] [address] [facility] Vital Signs Combined list of inpatient and outpatient Vital Signs from Department of Defense and Veterans Affairs, ranging from 12 months to all on record, depending upon the facility. Vital Sign Value Date Comments Source SYSTOLIC BLOOD PRESSURE 139 12/16/2024 10:43:26 [place] [facility] DIASTOLIC BLOOD PRESSURE 73 12/16/2024 10:43:26 [place] [facility] PULSE OXIMETRY 94 % 12/16/2024 10:43:26 [facility] WEIGHT 206.6 12/16/2024 10:43:26 [place] [facility] BMI 30 kg/m2 12/16/2024 10:43:26 [place] [facility] TEMPERATURE 97.7 12/16/2024 10:43:26 [place] [facility] PULSE 87 12/16/2024 10:43:26 [place] [facility] RESPIRATION 18 12/16/2024 10:43:26 [place] [facility] SYSTOLIC BLOOD PRESSURE 117 06/26/2024 10:37:00 [place] [facility] DIASTOLIC BLOOD PRESSURE 69 06/26/2024 10:37:00 [place] [facility] PULSE OXIMETRY 95 06/26/2024 10:37:00 [facility] [place] [facility] WEIGHT 217.1 06/26/2024 10:37:00 [place] [facility] BMI 31 kg/m2 06/26/2024 10:37:00 [place] [facility] PAIN 0 06/26/2024 10:37:00 [place] [facility] PULSE 83 06/26/2024 10:37:00 [place] [facility] RESPIRATION 17 06/26/2024 10:37:00 [place] [facility] SYSTOLIC BLOOD PRESSURE 115 03/12/2024 10:09:00 [place] [facility] DIASTOLIC BLOOD PRESSURE 71 03/12/2024 10:09:00 [place] [facility] PULSE OXIMETRY 95 03/12/2024 10:09:00 [facility] [place] [facility] WEIGHT 207.2 03/12/2024 10:09:00 [place] [facility] BMI 30 kg/m2 03/12/2024 10:09:00 [place] [facility] PAIN 4 03/12/2024 10:09:00 [place] [facility] HEIGHT 70.0 03/12/2024 10:09:00 [place] [facility] TEMPERATURE 98.0 03/12/2024 10:09:00 [facility] PULSE 91 03/12/2024 10:09:00 [facility] RESPIRATION 20 03/12/2024 10:09:00 [facility] SYSTOLIC BLOOD PRESSURE 116 01/01/2024 10:36:00 [facility] DIASTOLIC BLOOD PRESSURE 70 01/01/2024 10:36:00 [facility] PULSE OXIMETRY 94 01/01/2024 10:36:00 [facility] WEIGHT 206.0 01/01/2024 10:36:00 [facility] BMI 30 kg/m2 01/01/2024 10:36:00 [facility] PAIN 0 01/01/2024 10:36:00 [facility] HEIGHT 70.0 01/01/2024 10:36:00 [facility] TEMPERATURE 97.6 01/01/2024 10:36:00 [facility] PULSE 91 01/01/2024 10:36:00 [facility] RESPIRATION 18 01/01/2024 10:36:00 [facility] Encounters Combined list of: 1) Encounters from Department of Veterans Affairs facilities going backup to the last 18 months, not all VA inpatient encounters are included; 2) Encounters from the Department of Defense facilities going backup to 280 months. 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 without complic ations Christa GARDNER 07/19 [facility] [place] [facility] SPECIAL SUPPLIES PHYS/QHP [id number] Diagnos is: ICD-10- CM G47.30 Sleep apnea, unspeci fied POYNOR,VINNIE HELLE B 07/19 [place] [facility] Outpatient Encounter [id number] 07/24 [facility] Outpatient Encounter [id number] 07/25 [facility] Outpatient Encounter [id number] 08/03 [facility] Outpatient Encounter [id number] 08/05 [facility] Outpatient Encounter [id number] 09/06 [facility] [place] [facility] Outpatient Encounter [id number] 09/10 [place] [facility] [place] [facility] Outpatient Encounter [id number] CAROLYN ESPINOSA EE L 09[facility]10 [facility] Outpatient Encounter [id number] 09/13 [facility] Outpatient Encounter [id number] 09/21 [facility] Outpatient Encounter [id number] 09/25 [facility] Outpatient Encounter [id number] 10/18 [facility] [place] [facility] Outpatient Encounter [id number] 10/22 [facility] Outpatient Encounter [id number] 10/23 [facility] En[facility] [id number] 10/23 [place] [facility] Outpatient Encounter [id number] 10/24 [facility] Outpatient Encounter [id number] 11/06 [facility] Outpatient Encounter [id number] 11/07 [facility] Outpatient Encounter [id number] 11/21 [facility] Outpatient Encounter [id number] 12/10 [facility] Outpatient Encounter [id number] 12/14 [facility] Outpatient Encounter [id number] [id number] 12/26 [facility] OFFICE O/P EST MOD 30 MIN [id number] Diagnos is: ICD-10- CM E11.9 Type 2 diabete s mellitu s without complic ations Christa GARDNER 12/31 [facility] Outpatient Encounter [id number] 01/07 [facility] Outpatient Encounter [id number] 01/07 [facility] Outpatient Encounter [id number] [id number] 02/04 [facility] Outpatient Encounter [id number] 02/12 [facility] OFF/OP EST SEPTEMBER X REQ PHY/QHP [id number] Diagnos is: ICD-10- CM Z23 Encount er for immuniz brigitte STEPHANIE CHANG TYSHAWN R 02/28 [facility] Outpatient Encounter [id number] 03/07 [facility] Outpatient Encounter [id number] 03/11 [facility] OFFICE O/P EST LOW 20 MIN [id number] Diagnos is: ICD-10- CM 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 Christa GARDNER 03/12 [facility] En[facility] [id number] 03/14 [facility] Outpatient Encounter [id number] 03/26 [facility] Outpatient Encounter [id number] 03/26 [facility] Outpatient Encounter [id number] [id number] 04/10 [facility] Outpatient Encounter [id number] 04/12 [facility] Outpatient Encounter [id number] 04/16 [facility] Outpatient Encounter [id number] 05/01 [facility] Outpatient Encounter [id number] 05/13 [facility] [place] [facility] QNHP OL DIG ASSMT&MGMT 5-10 [id number] Diagnos is: ICD-10- CM E11.9 Type 2 diabete s mellitu s without complic ations MIKY DUKES V 05/14 [facility] Outpatient Encounter [id number] 05/17 [facility] Outpatient Encounter [id number] 05/27 [facility] Outpatient Encounter [id number] 05/29 [facility] Outpatient Encounter [id number] 06/07 [facility] NQHP OL DIG ASSMT&MGMT 5-10 [id number] Diagnos is: ICD-10- CM E11.9 Type 2 diabete s mellitu s without complic ations MIKY DUKES V 06/07 [place] [facility] Outpatient Encounter [id number] 06/12 [facility] Encounter [id number] 06/18 [facility] Encounter [id number] 06/18 [facility] Outpatient Encounter [id number] 06/25 [facility] OFFICE O/P EST MOD 30 MIN [id number] Diagnos is: ICD-10- CM E11.9 Type 2 diabete s mellitu s without complic ations Christa GARDNER 06/26 [facility] Outpatient Encounter [id number] 06/28 [facility] Outpatient Encounter [id number] 06/28 [facility] Outpatient Encounter [id number] [id number] 07/03 [facility] Outpatient Encounter [id number] 07/08 [facility] Outpatient Encounter [id number] 07/10 [facility] Outpatient Encounter [id number] 07/25 [facility] Outpatient Encounter [id number] 08/21 [facility] Outpatient Encounter [id number] 09/09 [facility] Outpatient Encounter [id number] 09/12 [facility] Outpatient Encounter [id number] 09/23 [facility] Outpatient Encounter [id number] 09/24 [facility] Outpatient Encounter [id number] ROGER SORTO 09/24 [facility] Outpatient Encounter [id number] Marquise FERRERA 09/24 [facility] Outpatient Encounter [id number] 09/25 [facility] Outpatient Encounter [id number] 09/25 [facility] Outpatient Encounter [id number] 10/11 [facility] Outpatient Encounter [id number] 10/11 [facility] Outpatient Encounter [id number] 10/15 [facility] Outpatient Encounter [id number] 10/17 [facility] Outpatient Encounter [id number] ROSEMARIE SHEN NILSA 10/18 [facility] Outpatient Encounter [id number] 10/21 [facility] Outpatient Encounter [id number] 11/05 [facility] Outpatient Encounter [id number] 11/06 [facility] Outpatient Encounter [id number] MOLLY SCHULZ 11/07 [facility] Outpatient Encounter [id number] 11/12 [facility] [place] [facility] Outpatient Encounter [id number] 11/13 [place] [facility] Outpatient Encounter [id number] 12/09 [facility] OFF/OP EST SEPTEMBER X REQ PHY/QHP [id number] Diagnos is: ICD-10- CM R10.31 Right lower quadran t pain NILSA FERRARO 12/16 [facility] Outpatient Encounter [id number] 12/16 [facility]P EST MOD 30 MIN [id number] Diagnos is: ICD-10- CM M54.50 Low back pain, unspeci fied MORENITA CONNOLLYL G 12/16 [facility] Outpatient Encounter [id number] 12/19 [facility] Outpatient Encounter [id number] JOHANNA ROBERSONA Brody 12/24 [facility] Social History Combined list of available smoking, tobacco, and other social history from Department of Defense and Veterans Affairs facilities. Social History Type Response Date Comment Source Tobacco smoking status SDIS VA-TOBACCO QUIT 15 YRS OR MORE 01/01/2024 [facility] History of tobacco use VA-TOBACCO FORMER USER 01/01/2024 [facility] History of tobacco use MT-TOBACCO FORMER USER 12/22/2022 [facility] History of tobacco use VA-TOBACCO NEVER USED 12/06/2021 [facility] History of tobacco use VA-TOBACCO QUIT 5 TO < 15 YRS 02/05/2019 [facility] History of tobacco use QUIT TOBACCO >7 YEARS AGO 01/25/2018 [facility] History of tobacco use QUIT TOBACCO >7 YEARS AGO 09/29/2014 [facility] History of tobacco use LIFETIME NON-USER OF TOBACCO 09/09/2013 [facility] History of tobacco use QUIT TOBACCO >12 MO and <7 YRS AGO 08/22/2012 [facility] History of tobacco use QUIT TOBACCO >12 MO and <7 YRS AGO 07/08/2011 [facility] History of tobacco use QUIT TOBACCO >12 MO and <7 YRS AGO 07/28/2010 [facility] History of tobacco use QUIT TOBACCO >12 MO and <7 YRS AGO 07/22/2009 [facility] History of tobacco use TOBACCO OFFERRED STOP SMOKING CLINIC 04/01/2008 ANNIE GARCIA [facility] History of tobacco use TOBACCO OFFERED PT MEDS (PROVIDER) 03/05/2008 is quitting on his own [facility] History of tobacco use TOBACCO OFFERED PT MEDS (PROVIDER) 12/24/2007 refuses at this time [facility] History of tobacco use TOBACCO OFFERED STOP SMOKING CLINIC 10/18/2007 ANNIE GARCIA [facility] Plan of Care List of future care activities from Department of Veterans Affairs facilities. Additional future care activities may be listed in the Assessment and Plan section. Date/Time Care Activity Care Activity Detail Facili ty 01/16/2025 AMBULATORY - MEDICINE AMBULATORY - MEDICI NE [facility]
--- OUTSIDE RECORDS SUMMARY | 2024-12-26 14:17 | XMS_ITS | Clinical Summary ---
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 Gender Identity Not on file Sexual Orientation [...] (#1) 2024 Medical Devices Implanted Type Area Rotary Envelope Machine Operator Device Identifier Shelf Expiration Date Model / Serial / Lot Angio-Seal Vip Closure Dev [id number] - [id number] Implanted:Qty: 1 on 10/01/2020 Closure Device Right: Groin [employer] 07/12/2021 [id number] / / [id number] Stent Synergy Mr 4.0x32mm Drug Elut [id number] - [id number] Implanted:Qty: 1 on 10/01/2020 by Joseph Montalvo MD Stent Right: Leg [employer] 01/28/2022 [id number] / / [id number] Stent Vasc Alva [id number] - [id number] Implanted:Qty: 1 on 10/01/2020 Stent Right: Leg [employer] 01/30/2022 [id number] / / [id number] Stent Viabahn Hep [id number] - [id number] Implanted:Qty: 1 on 10/01/2020 Stent Right: Leg [employer] 07/20/2023 [id number] / [id number] Insurance MEDICARE PART A AND B * Guarantor: MARBIN FUNEZ Account Type Relation to Patient Date of Phone Billing Address Personal/Family [address] [place] [id number] RX OPT[employer] RX Member Subscriber Plan / Payer (Ef fective for All Dates) Name:Dee DeeMarbin Relation to Subscriber:Self Name:Dee DeeMarbin Payer ID:Not on file Type:RX Commercial Address: [place] * Guarantor: OLD 2020 [facility] Account Type Relation to Patient Date of Phone Billing Address Corporate Other DEFAULT ADDRESS [place] [phone] [facility] [employer]
--- OUTSIDE RECORDS SUMMARY | 2024-12-26 14:17 | XMS_ITS | Clinical Summary ---
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 [...] (#1) 2024 Medical Devices Implanted Type Area Treating Engineer Helper Device Identifier Shelf Expiration Date Model / Serial / Lot Angio-Seal Vip Closure Dev [id number] - [id number] Implanted:Qty: 1 on 10/01/2020 at [facility] Closure Device Right: Groin [employer] [employer] 07/12/2021 [id number] / / [id number] Stent Viabahn Hep [id number] - [id number] Implanted:Qty: 1 on 10/01/2020 at [facility] Stent Right: Sol Medeiros [employer] 07/20/2023 [id number] / [id number] / Stent Synergy Mr 4.0x32mm Drug Elut [id number] - [id number] Implanted:Qty: 1 on 10/01/2020 by Joseph Montalvo MD at [facility] Stent Right: Leg [employer] 01/28/2022 [id number] / / [id number] Stent Vasc Alva [id number] - [id number] Implanted:Qty: 1 on 10/01/2020 at [facility] Stent Right: Leg [employer] 01/30/2022 [id number] / / [id number] Insurance MEDICARE PART A AND B RX [employer] Member Subscriber Plan / Payer (Ef fective for All Dates) Name:RandycarissaMarbin Relation to Subscriber:Self Name:ENMA FUNEZJANAE CORDERO Payer ID:Not on file Type:RX Commercial Address: [place] [employer] [facility] [place] [address] Advance Directives For more information, please contact: [phone] * Full Code (Latest Code Status on File) Date Activated Date Inactivated Comments 10/01/2020 11:52 AM 10/03/2020 7:18 PM
--- OUTSIDE RECORDS SUMMARY | 2024-12-26 14:17 | XMS_ITS | Encounter Summary ---
Author Organization [facility] Address [address] [place] [address] Care Team Providers Care Cook Starch Name Role Phone Unavailable Primary Care Provider Unavailabl e Reason for Referral * PET Scan (Urgent) - Closed Specialty Diagnoses / Procedures Referred By Contac t Referred To Contact Radiology Diagnoses Malignant neoplasm of upper lobe, right bronchus or lung (CMS/HCC) Procedures PET TUMOR IMG W CT SKL BSE MID THG Nuno Campbell MD [address] [place] [phone] Phone: tel: fax: [facility] Nuclear Medicine [address] [place] [phone] Phone: tel: fax: Referral ID Status Reason Start Date Expiration Date V isits Requested Visits Authorized [id number] Closed [facility] to Schedule 03/02/2020 04/02/2021 1 1 Encounter Details Date Type Department Care Team (Late st Contact Info) Description 03/02/2020 Ancillary Orders [facility] Pre-Registration [place] CALL TO MAKE APPOINTMENT ONLY [address] [place] [address] Nuno Campbell MD [address] [place] [phone] Malignant neoplasm of upper lobe, right [...] from Skull Base to Mid Thigh: Radiopharmaceutical: [id number]-Ezfogvwesqekhdopuq Dose: 13.2 mCi right forearm IV Time of Injection: 1335 hrs BMI: Not available Clinical Indication: Initial treatment strategy to evaluate malignant neoplasm of the right lung upper lobe for staging examination FDG (R-41-Ysvrywcxntikrfamkw) PET imaging was performed at 1422 hrs [...] from Skull Base to Mid Thigh: Radiopharmaceutical: M-26-Aldjihjxxvglfidfhs Dose: 13.2 mCi right forearm IV Time of Injection: 1335 hrs BMI: Not available Clinical Indication: Initial treatment strategy to evaluate malignant neoplasm of the right lung upper lobe for staging examination FDG (X-73-Bbrntrcegwvzafcxku) PET imaging was performed at 1422 hrs [...]
--- OUTSIDE RECORDS SUMMARY | 2024-12-26 14:18 | XMS_ITS | Patient Health Record ---
Author Organization [facility] Address [address] [place] [address] Care Team Providers Care Engineering Job Titles Name Role Phone [facility] Primary Care Provider Unav ailable Robert Phillips Unavailable [phone] [place], [place] Unavailable Unavailable Jonas Caldwell Unavailable [phone] Allergies No Known Allergies Reason For Referral Reason malignant neoplasm o f upper lobe, bronchus of lung: [facility] - Scheduled Diagnosis 1 Malignant neoplasm o f upper lobe, right bronchus or lung (C34.11) Referring Provider First Name Jose Antonio Jean Baptisteu Referring Provider Last Name [place] Referring Provider Speciality [facility] Referred Organization [facility] Referred Provider Robert Phillips Referred Address [address],[place], [place],[address],[place] Referred Provider Specialty Pulmonary Di seases General Notes Svitlana Casper 05/06 04:28:32 PM >04/25-JAYCE @ [facility] to get imaging info., Svitlana Casepr 05/13/2024 03:37:02 PM >Email from Lucero @ [facility]- he is a cancer patient at [facility] oncology. Joanna in the cancer center at [facility] states they can cloud share to you guys but Jessica has to do it. She will be returning on Monday05/20/2024. He's had CT chests in 04/07, Pet08/05, more CTs of chest done 12/[address] on 08/04 that will all be sent over as next week., Svitlana Casper 05/20/2024 04:31:35 PM >Images received via [employer]Tremayne Meranda 05/20/2024 04:53:40 PM >LVM for 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) Active confirmed Problem Chronic respiratory failure (26376056) Chronic hypoxic respiratory failure (J96.11) Active confirmed [...] N/A Encounters Encounter Location Date Provider Diagnosis [facility] [address] [place] [address] 05/29/2024 Robert Phillips Shortness of breath R06.02 ; Malignant neoplasm of upper lobe, right bronchus or lung C34.11 ; Former smoker Z87.891 and DINESH (obstructive sleep apnea) G47.33 [facility] [address] [place] [address] 05/30/2024 Robert Phillips Shortness of breath R06.02 [facility] [address] [place] [address] 07/08/2024 Robert Phillips Shortness of breath R06.02 [facility] [address] [place] [address] [place] [address] 07/08/2024 Robert Phillips Shortness of breath R06.02 ; Stage 2 moderate COPD by GOLD classification J44.9 ; Malignant neoplasm of upper lobe, right bronchus or lung C34.11 ; Former smoker Z87.891 and DINESH (obstructive sleep apnea) G47.33 [facility] [address] [place] [address] [place] [address] 10/17/2024 Robert Phillips Shortness of breath R06.02 ; Stage 2 moderate COPD by GOLD classification J44.9 ; Malignant neoplasm of upper lobe, right bronchus or lung C34.11 ; Former smoker Z87.891 ; DINESH (obstructive sleep apnea) G47.33 and Chronic cough R05.3 [facility] [place] [address] 03/27/2024 Jonas Caldwell [facility] [address] [place] [address] [place] [address] 05/30/2024 Robert Phillips [facility] [address] [place] [address] [place] [address] 08/05/2024 Robert Phillips Assessments Encounter Date Diagnosis (ICD Code) Assessment Notes Treatment Notes Treatment Clinical Notes Section Notes 05/29/2024 Shortness of breath (ICD-10 - R06.02) Patient was being treated for COPD in [place], [place]. Continue Albuterol HFA. Hold Stiolto. I will give him a sample of Trelegy and Breztri. -Obtain PFT and 6MW 05/29/2024 Malignant neoplasm of upper lobe, right bronchus or lung (ICD-10 - C34.11) Patient currenlty following Oncology in [place], [place]. Obtain repeat chest CT March 18, [...] - C34.11) Patient currenlty following Oncology in [place], [place]. Obtain repeat chest CT March 2025. 07/08/2024 Malignant neoplasm of upper lobe, right bronchus or lung (ICD-10 - C34.11) Patient currenlty following Oncology in [place], [place]. Obtain repeat chest CT March 18, 2025. 05/29/2024 Former smoker (ICD-10 - Z87.891) Patient smoked 2 bjuvg-dlz-gdj for 49 years. He has been abstinent since he was 62 years old. 05/29/2024 DINESH (obstructive sleep apnea) (ICD-10 - G47.33) Patient states he has sleep apnea and uses oxygen at night. 07/08/2024 Former smoker (ICD-10 - Z87.891) Patient smoked 2 hkpae-osn-uhs for 49 years. He has been abstinent since he was 62 years old. 10/17/2024 Former smoker (ICD-10 - Z87.891) Patient smoked 2 oxani-uxh-mgj for 49 years. He has been abstinent [...] Name Order Date CT Chest w/o Contrast diagnostic-[id number] 1 Next Appt Details Provider Name:Robert Phillips, 03/24/2025 01:10:00 PM, [address] [place] [address] [address], [place], [address], Insurance Providers Payer Name Payer Address Payer Phone Subscriber Number Group Number Insured Name Patient Relationship to Insured Coverage Start Date Coverage End Date [employer] [address] [place] [phone] [id number] NOAH FUNEZ Self - patient is the insured Medical (General) History Medical History History ICD Code Chronic Obstructive Pulmonary Disease Coronary arteriosclerosis Diabetes mellitus Hyperlipidemia Problem:Hypertensive disorder, systemic arterial Sleep apnea Surgical History Surgery Date(Month/Year) Vascular 2020 Bladder 2006 Vascular right leg 2021 Heart Vascular calf leg 05.01.24 Hospitalization History Reason Date(Month/Year) See Sx HX
[2024-12-26 14:21] VITALS: BP 107/53; PULSE 98; RESP 16; TEMP 36.4; O2SAT 96; BMI 30.1
[2024-12-26 15:29] LABS: Hematocrit 39.9 % (37-53); Hemoglobin 13.70 g/dL (11.27-16.99); Mean Corpuscular HGB Conc 34.3 g/dL (30-55); Mean Corpuscular Hemoglobin 30.6 pg (27-33); Mean Corpuscular Volume 89.1 fl (82-101); Nucleated Red Blood Cells % 0 %; Platelet Count 275 10^3/cmm (157-399); Red Blood Count 4.48 10^6/uL (3.85-5.65); White Blood Count 9.33 10^3/uL (3.29-11.43)
[2024-12-26 15:47] LABS: Alanine Aminotransferase 9 U/L (0-41); Albumin Level 4.0 g/dL (3.5-5.2); Alkaline Phosphatase 94 U/L (40-130); Anion Gap 17.1 (5-19); Aspartate Amino Transferase 13 U/L (0-40); Blood Urea Nitrogen 8 mg/dL (8-23); Calcium 9.5 mg/dL (8.5-10.5); Carbon Dioxide 21 mmol/L (22-29); Chloride 95 mmol/L (98-107); Creatinine Clr Calc Pharmacy 85.3142; Globulin 3.2 g/dL (1.3-4.6); Glucose 103 mg/dL (65-115); Lipase 9 U/L (13-60); Osmolality Calculated 267 mOsm/kg (285-295); Potassium 4.1 mmol/L (3.5-5.1); Sodium 129 mmol/L (136-145); Total Protein 7.2 g/dL (6.6-8.7)
[2024-12-26 18:09] VITALS: BP 121/73; PULSE 105; O2SAT 98
--- NOTE | 2024-12-26 18:22 | XRR_ITS ---
PROCEDURE INFORMATION: Exam: XR Abdomen Exam date and time: 12/26/2024 6:29 PM Age: 79 years old Clinical indication: Abdominal pain; Generalized; Additional info: Abd pain, constipation TECHNIQUE: Imaging protocol: Radiologic exam of the abdomen. Views: Frontal supine view of the abdomen. 1 View. COMPARISON: CT abdomen pelvis w con* [id number] 12/23/2024 10:38 AM FINDINGS: Gastrointestinal tract: Moderate gaseous distension of the colon with moderate to large volume retained stool again noted similar to 12/23/2024 CT. No obvious small bowel dilatation. No pneumatosis identified. Bones/joints: Unremarkable. XR/XR KUB portable 19381 IMPRESSION: Persistent moderate gaseous and stool filled colonic distension similar to 12/23/[address]24 CT.
[2024-12-26 18:37] LABS: Glucose Urine UA Negative (Normal); Nitrate Urine Negative (Negative); Specific Gravity, Urine 1.016 (1.005-1.030)
[2024-12-26 18:44] LABS: UA Slide Review UA Slide Review Perf
[2024-12-26 18:45] LABS: Add Urine Microscopic? YES
[2024-12-26 18:46] LABS: Oval Fat Bodies Urine 1+ /hpf
[2024-12-26] MEDS: Fleet Enema 133 mL Enema PR (18:56)
[2024-12-26 19:01] VITALS: BP 145/85; PULSE 89; O2SAT 99
[2024-12-26] MEDS: lactulose oral liq 20 gm/30 mL UDC 30 GM PO (20:48)
[2024-12-26] MEDS: magnesium citrate Btl 296 mL PO (20:48)
[2024-12-26 20:51] VITALS: PULSE 93; O2SAT 97
[2024-12-26 22:00] VITALS: BP 127/77; PULSE 84; RESP 18; O2SAT 94
--- NOTE | 2024-12-26 22:51 | W.ED.BACK ---
HPI - Back Pain/Injury General: Chief Complaint: Back Pain/Injury Stated Complaint: Pain in back no BM in 14 days Time Seen by Provider: 12/26/24 17:51 Source: patient Mode of arrival: ambulatory Limitations: no limitations History of Present Illness: Patient is a 89-year-old male who presents the emergency department with constipation. He was seen here in the emergency department a few days ago, diagnosed with adynamic ileus by abdominal CT, and discharged home. States that since then he has only had a little bit pass in terms of bowel movements, he is having more abdominal pain and distention and back pain from the constipation. Also reporting some nausea. He tried an enema at home with no relief. No fever, bloody stools, altered mental status, or other concerns. His vitals are normal at this time. MD elicited complaint: back pain and other (Constipation) Onset (ago): day(s) Associated symptoms: Reports abdominal pain and nausea; Deny chills, dysuria, fever(s), urinary urgency or vomiting Related Data Home Medications ?Medication ?Instructions ?Recorded ?Confirmed aspirin 81 mg tablet,delayed 81 mg PO DAILY@12 09/18/19 12/17/24 release cholecalciferol (vitamin D3) 25 25 mcg PO DAILY@0730 09/18/19 12/17/24 mcg (1,000 unit) capsule cetirizine 10 mg tablet 10 mg PO DAILY 10/07/21 12/17/24 isosorbide mononitrate 60 mg 90 mg PO QAM 10/07/21 12/17/24 tablet,extended release 24 hr multivitamin 1 tab PO DAILY 10/07/21 12/17/24 levothyroxine 75 mcg tablet 150 mcg PO DAILY 12/07/21 12/17/24 insulin glargine 100 unit/mL (3 40 unit SUBCUT DAILY see pharmacy 01/14/22 12/17/24 mL) subcutaneous pen comments cilostazol 50 mg tablet 100 mg PO BID 09/15/22 12/17/24 polyethylene glycol 3350 17 gram 17 g PO DAILY 10/13/22 12/17/24 oral powder packet (Miralax) albuterol sulfate 90 mcg/actuation 1 inh inhalation QID 02/20/24 12/17/24 aerosol inhaler Solu-Medrol (PF) 210 mg PO DIRECTED 12/17/24 12/17/24 insulin aspart U-100 100 unit/mL 20 unit SUBCUT TID 12/17/24 12/17/24 (3 mL) subcutaneous pen (Novolog FlexPen U-100 Insulin aspart) urea 40 % topical cream 1 applic topical PRN 12/17/24 12/17/24 Previous Rx's ?Medication ?Instructions ?Recorded Sole supports #1 ea 09/18/19 Custom orthotics #1 ea 11/20/19 Diabetic shoes with custom inserts #1 ea 12/08/20 Diabetic Shoes with 3 sets of #1 ea 11/08/21 insoles glucagon 1 mg solution for 1 mg SUBCUT Q20M PRN hypoglycemia 11/23/21 injection (Glucagon Emergency Kit) #1 ea hydrocortisone 2.5 % topical cream 1 applic topical BID #30 grams 02/01/22 atorvastatin 80 mg tablet 40 mg (1/2 x 80 mg) PO QPM #45 tabs 04/06/22 triamcinolone acetonide 0.025 % 1 applic topical BID #60 mL 11/02/22 lotion guaifenesin 600 mg tablet, 600 mg PO .three times week #90 11/24/22 extended release 12 hr tabs mometasone 100 mcg/actuation HFA 1 puff inhalation BID #13 grams 10/12/23 aerosol inhaler gabapentin 100 mg capsule 100 mg PO TID #270 caps 12/11/23 clopidogrel 75 mg tablet 75 mg PO DAILY #90 tabs 03/07/24 2 Pairs of Custom Molded Orthotics #1 ea 03/15/24 A5514 blood-glucose,kennel hand,cont #1 ea 06/17/24 (Dexcom G7 Tail Worker) diabetic shoes with custom inserts #1 ea 09/09/24 blood-glucose sensor (Dexcom G7 #3 ea 10/15/24 Sensor device) metformin 500 mg tablet,extended 500 mg PO BID #180 tabs 10/15/24 release 24 hr losartan 50 mg tablet See Rx Instructions .Route 11/07/24 .COMPLEX #135 tabs Diabetic Shoes with 3 inserts #1 ea 12/09/24 peg 3350-electrolytes 236 240 ml PO Q10M #4,000 mL 12/26/24 gram-22.74 gram-6.74 gram-5.86 gram solution (Golytely) Allergies Allergy/AdvReac Type Severity Reaction Status Date / Time No Known Allergies Allergy Verified 12/26/24 14:24 Review of Systems General: Reports: 10 or more systems reviewed and unremarkable except in HPI and below Const: Denies: fever(s), chills, change in appetite, change in weight or diaphoresis ENMT: Denies: throat pain or hoarseness Card: Denies: chest pain, palpitations or lightheadedness Resp: Denies: dyspnea, productive cough or wheezing GI: Reports: abdominal pain, nausea and constipation; Denies: vomiting, diarrhea, bloating, change in stool character or hematochezia : Denies: flank pain, difficulty urinating, dysuria, urinary frequency or urinary urgency Musc: Reports: back pain; Denies: neck pain Skin/Breast: Denies: rash or new lesions Neuro: Denies: headache(s) or dizziness PFSH ED PFSH: Medical History Atherosclerosis of coronary artery Lung nodule Type 2 diabetes mellitus with diabetic polyneuropathy Bladder cancer PVD (peripheral vascular disease) Surgical History Port-A-Cath in place (04/01/20) H/O esophagogastroduodenoscopy (04/01/20) History of bronchoscopy History of bladder surgery History of surgical removal of pilonidal cyst H/O colonoscopy H/O heart artery stent Family History Other CAD (coronary artery disease) Cancer Diabetes Hyperlipidemia Hypertension Lung disease Denies family history of Clotting disorder Dementia Psychiatric illness Chronic kidney disease (CKD) Suicide Anesthesia complication Bleeding disorder Family history of premature coronary artery disease Stroke Social History Smoking and tobacco/nicotine status: former use of tobacco/nicotine Quit status (tobacco/nicotine): has quit using Year quit tobacco: 2007- PPD x 45 Years Alcohol intake: never Substance/Drug Use: never Lives independently: Yes Household members: spouse Marital status: service: Yes Current occupational status: retired Do you think of yourself as: Straight/Heterosexual Current gender identity: Male Physical Exam Const: COMMON NORMALS: no acute distress, average body habitus, patient oriented x3, no limitations, healthy appearing, alert and well nourished GENERAL APPEARANCE: cooperative and comfortable ORIENTATION/CONSCIOUSNESS: Yes awake Eye: COMMON NORMALS: Equal, round and reactive pupils present, EOMs intact bilaterally, conjunctivae normal and normal visual cramer by confrontation CONJUNCTIVA: Yes conjunctivae normal PUPIL: Yes Equal, round and reactive pupils present Neck/C-Spine: COMMON NORMALS: full ROM, supple, no meningeal signs and no JVD Resp: COMMON NORMALS: normal respiratory effort, No retractions, No use of accessory muscles and clear to auscultation bilaterally AUSCULTATION: clear to auscultation bilaterally, no crackles, no rales, no rhonchi and no wheezes Cardio: COMMON NORMALS: no JVD, regular rate, regular rhythm, S1 normal heart sound present, S2 normal heart sound present, No gallops present (Cardio), No clicks present (Cardio), No murmurs present (Cardio), No rub (Cardio) and Peripheral pulses 2+ throughout RATE: regular rate RHYTHM: regular rhythm HEART SOUNDS: S1 normal heart sound present and S2 normal heart sound present PERIPHERAL PULSES: Peripheral pulses 2+ throughout GI: INSPECTION: Yes abdominal distension AUSCULTATION: Yes Hypoactive bowel sounds present PALPATION: Yes Tenderness to palpation present (GI) (Diffusely), No Guarding due to palpation present (GI) and No Rigid due to palpation RECTAL EXAM: Yes deferred Extremity: COMMON NORMALS: normal to inspection and full ROM Neuro: COMMON NORMALS: patient oriented x3, moves all extremities, no focal motor deficits and no sensory deficits noted SENSORIUM/ORIENTATION: Yes alert MENINGEAL SIGNS: Yes no meningeal signs Psych: COMMON NORMALS: mental status grossly normal, cooperative and speech normal SPEECH: Yes normal speech Skin: COMMON NORMALS: no rashes or lesions noted GENERAL SKIN EXAM: no rashes or lesions noted Procedures Rectal Disimpaction Time out performed rectal disimpaction: No Indication: fecal impaction Procedural Sedation: No Sedation/Analgesia: none Technique: manual disimpaction with gloved finger Result: unable to disimpact Patient Tolerated Procedure: well and no complications Complications: none Course Vital Signs: Vital signs: Vital Signs Temperature 97.5 F L 12/26/24 14:21 Pulse Rate 84 12/26/24 22:00 Respiratory Rate 18 12/26/24 22:00 Blood Pressure 127/77 12/26/24 22:00 Pulse Oximetry 94 12/26/24 22:00 Oxygen Delivery Me thod Room Air 12/26/24 19:01 MDM - Back Pain/Injury Medical Decision Making Patient presented with continued constipation despite at home therapy. Was seen in the emergency department a few days ago diagnosed with a diverticulosis and was discharged home. Labs obtained here unremarkable, he chronically has hyponatremia. KUB showing no change from previous x-ray, no need to CT scan as he recently had this done. Fecal disimpaction was attempted however there was no stool able to be retrieved, and he also got minimal relief from Fleet enema, mineral oil enema, glycerin suppository, lactulose, and mag citrate. Spoke with on-call surgeon, Dr. Dahl, who had stated as long as patient is comfortable no reason to admit and this can follow-up as an outpatient, and with persistent constipation may require colonoscopy guided fecal disimpaction. Prior to discharge, patient did have another stool and does state that he feels better, I will send GoLytely to the pharmacy for him to try at home, with him being instructed to follow-up with general surgery and/or primary care for reevaluation and if his constipation persists. He agrees with this plan. Discharged home at this time. Labs 12/26/24 15:03 12/26/24 15:03 Radiology Impressions KUB X-Ray 12/26/24 18:22 IMPRESSION: Persistent moderate gaseous and stool filled colonic distension similar to 12/23/2024 CT. Laboratory Results WBC 9.33 10^3/uL (3.29-11.43) 12/26/24 15:03 RBC 4.48 10^6/uL (3.85-5.65) 12/26/24 15:03 Hgb 13.70 g/dL (11.27-16.99) 12/26/24 15:03 Hct 39.9 % (37-53) 12/26/24 15:03 MCV 89.1 fl (82-101) 12/26/24 15:03 MCH 30.6 pg (27-33) 12/26/24 15:03 MCHC 34.3 g/dL (30-55) 12/26/24 15:03 RDW 13.7 % (12.1-15.1) 12/26/24 15:03 Plt Count 275 10^3/cmm (157-399) 12/26/24 15:03 MPV 8.4 fL (7.4-10.4) 12/26/24 15:03 Neut % (Auto) 71.1 % 12/26/24 15:03 Lymph % (Auto) 12.0 % 12/26/24 15:03 [place] % (Auto) 9.1 % 12/26/24 15:03 Eos % (Auto) 7.2 % 12/26/24 15:03 Baso % (Auto) 0.4 % 12/26/24 15:03 Neut # (Auto) 6.63 10^3/uL (1.8-7.7) 12/26/24 15:03 Lymph # (Auto) 1.1 10^3/uL (0.8-4.8) 12/26/24 15:03 [place] # (Auto) 0.9 10^3/uL (0.2-0.9) 12/26/24 15:03 Eos # (Auto) 0.7 10^3/uL (0.0-0.8) 12/26/24 15:03 Baso # (Auto) 0.0 10^3/uL (0.0-0.1) 12/26/24 15:03 Nucleated RBC % (auto) 0 % 12/26/24 15:03 Nucleated RBCs # 0.0 /100WBC 12/26/24 15:03 Sodium 129 mmol/L (136-145) L 12/26/24 15:03 Potassium 4.1 mmol/L (3.5-5.1) 12/26/24 15:03 Chloride 95 mmol/L (98-107) L 12/26/24 15:03 Carbon Dioxide 21 mmol/L (22-29) L 12/26/24 15:03 Anion Gap 17.1 (5-19) 12/26/24 15:03 BUN 8 mg/dL (8-23) 12/26/24 15:03 Creatinine 0.7 mg/dL (0.7-1.2) 12/26/24 15:03 GFR Calculation Not Reportable 12/26/24 15:03 Glucose 103 mg/dL (65-115) 12/26/24 15:03 Calculated Osmolality 267 mOsm/kg (285-295) L 12/26/24 15:03 Calcium 9.5 mg/dL (8.5-10.5) 12/26/24 15:03 Total Bilirubin 0.6 mg/dL (0.15-1.2) 12/26/24 15:03 AST 13 U/L (0-40) 12/26/24 15:03 ALT 9 U/L (0-41) 12/26/24 15:03 Alkaline Phosphatase 94 U/L (40-130) 12/26/24 15:03 Total Protein 7.2 g/dL (6.6-8.7) 12/26/24 15:03 Albumin 4.0 g/dL (3.5-5.2) 12/26/24 15:03 Globulin 3.2 g/dL (1.3-4.6) 12/26/24 15:03 Lipase 9 U/L (13-60) L 12/26/24 15:03 Urine Color Yellow (Yellow) 12/26/24 18:15 Urine Appearance Clear (CLEAR) 12/26/24 18:15 Urine pH 5.5 (5-7) 12/26/24 18:15 Ur Specific [place] 1.016 (1.005-1.030) 12/26/24 18:15 Urine Protein Negative (Negative) 12/26/24 18:15 Urine Glucose (UA) Negative (Normal) 12/26/24 18:15 Urine Ketones Trace (Negative) 12/26/24 18:15 Urine Blood Negative (Negative) 12/26/24 18:15 Urine Nitrate Negative (Negative) 12/26/24 18:15 Urine Bilirubin Negative (Negative) 12/26/24 18:15 Urine Urobilinogen 1.0 mg/dL (Negative) 12/26/24 18:15 Ur Leukocyte Esterase Trace (Negative) A 12/26/24 18:15 Urine RBC None /hpf (0-2) 12/26/24 18:15 Urine WBC 0-4 /hpf (0-5) H 12/26/24 18:15 Ur Squamous Epith Cells 0-4 /hpf (0-5) H 12/26/24 18:15 Amorphous Sediment Not Reportable 12/26/24 18:15 Urine Bacteria None /hpf (NONE) 12/26/24 18:15 Ur Oval Fat Bodies 1+ /hpf 12/26/24 18:15 All radiology interpretation(s) finalized by discharge Discharge Plan Discharge Patient Disposition: Home Clinical Impression: Adynamic ileus, Constipation Condition: Stable Prescriptions: New peg 3350-electrolytes [Golytely] 236-22.74-6.74 -5.86 gram recon soln 240 ml PO Q10M Qty: 4000 0RF Rx Instructions: until fecal effluent is clear No Action cholecalciferol (vitamin D3) 25 mcg (1,000 unit) capsule 25 mcg PO DAILY@0730 aspirin 81 mg tablet,delayed release (DR/EC) 81 mg PO DAILY@12 (DME) Sole supports Qty: 1 0RF Rx Instructions: As directed insulin glargine 100 unit/mL (3 mL) insulin pen 40 unit SUBCUT DAILY ([facility]) Custom orthotics See Rx Instructions .Route .MEDSUPPLY Qty: 1 0RF Rx Instructions: [facility]) Diabetic shoes with custom inserts See Rx Instructions .Route .MEDSUPPLY Qty: 1 0RF Rx Instructions: As directed BY CORRINE&O levothyroxine 75 mcg tablet 150 mcg PO DAILY Rx Instructions: One by mouth daily Monday thru Monday, and none on Monday. cilostazol 50 mg tablet 100 mg PO BID (DME) Diabetic Shoes with 3 sets of insoles See Rx Instructions .Route .MEDSUPPLY Qty: 1 0RF Rx Instructions: As directed by CORRINE&O hydrocortisone 2.5 % cream 1 applic topical BID Qty: 30 2RF Rx Instructions: Apply to the top of the left foot Twice a day. triamcinolone acetonide 0.025 % lotion 1 applic topical BID Qty: 60 0RF clopidogrel 75 mg tablet 75 mg PO DAILY Qty: 90 3RF (DME) diabetic shoes with custom inserts See Rx Instructions .Route .MEDSUPPLY Qty: 1 0RF Rx Instructions: As directed to [facility] diabetic [facility] metformin 500 mg tablet extended release 24 hr 500 mg PO BID Qty: 180 1RF (DME) Dexcom G7 Sensor Device See Rx Instructions .Route Qty: 3 3RF Rx Instructions: change sensor every 10 days Glucagon Emergency Kit (human) 1 mg recon soln 1 mg SUBCUT Q20M PRN (Reason: hypoglycemia) Qty: 1 3RF Rx Instructions: until target blood sugar attained polyethylene glycol 3350 [Miralax] 17 gram powder in packet 17 g PO DAILY mometasone 100 mcg/actuation HFA aerosol inhaler 1 puff inhalation BID Qty: 13 0RF gabapentin 100 mg capsule 100 mg PO TID Qty: 270 3RF (DME) Diabetic Shoes with 3 inserts See Rx Instructions .Route .MEDSUPPLY Qty: 1 0RF Rx Instructions: As directed to [facility] atorvastatin 80 mg tablet 40 mg PO QPM Qty: 45 3RF guaifenesin 600 mg tablet extended release 12hr 600 mg PO .three times week Qty: 90 3RF (DME) 2 Pairs of Custom Molded Orthotics A5514 See Rx Instructions .Route .MEDSUPPLY Qty: 1 0RF Rx Instructions: As directed [facility] (DME) Dexcom G7 Tail Worker Misc See Rx Instructions .Route Qty: 1 0RF Rx Instructions: As directed losartan 50 mg tablet See Rx Instructions .ROUTE .COMPLEX Qty: 135 3RF Dose Instruction: TAKE ONE AND ONE-HALF TABLETS BY MOUTH ONCE A DAY Rx Instructions: TAKE ONE AND ONE-HALF TABLETS BY MOUTH ONCE A DAY isosorbide mononitrate 60 mg Tablet Extended Release 24 Hr 90 mg PO QAM cetirizine 10 mg Tablet 10 mg PO DAILY multivitamin Tablet 1 tab PO DAILY urea 40 % cream 1 applic topical PRN Solu-Medrol (PF) 210 mg PO DIRECTED insulin aspart U-100 [Novolog FlexPen U-100 Insulin] 100 unit/mL (3 mL) insulin pen 20 unit SUBCUT TID Rx Instructions: INJECT 20 UNITS UNDER THE SKIN THREE TIMES A DAY BEFORE MEALS ADMINISTER 10 MINUTES BEFORE FOOD DIRECTED. REFRIGERATE UN-OPENED PENS. DISCARD CARTRIDGE 28 DAYS AFTER OPENING. albuterol sulfate 90 mcg/actuation Hfa Aerosol Inhaler 1 inh INHALATION QID Discharge Orders: Discharge ED (Routine); Ordered 12/26/24 Ordered By: Dionisio Sher Referrals: Shavonne Biswas MD [Primary Care Provider, Family Practice] Patient Instructions: Patient Portal & Ren[facility] Instructions Activity Restrictions/Additional Instructions: Constipation Discharge Instructions Discharge Instructions for Persistent Constipation Following Adynamic Ileus Summary of Hospital Course and Current Plan: - 79-year-old male with persistent constipation and adynamic ileus, refractory to manual disimpaction, enemas (Fleet, mineral oil), lactulose, magnesium citrate, and suppository. - Partial symptom relief noted, but only minimal stool passage. - GoLytely (polyethylene glycol electrolyte solution) prescribed for outpatient use. - Referral to general surgery if constipation persists. Medication Instructions: - GoLytely (polyethylene glycol electrolyte solution): Use as directed. Typical dosing for bowel cleansing is 240 mL (8 oz) every 10 minutes until 4 liters are consumed or clear rectal effluent is achieved, but dosing may be modified based on tolerance and clinical context. Monitor for signs of dehydration or electrolyte imbalance, especially in elderly patients. - Continue to avoid magnesium-based laxatives for long-term use due to risk of toxicity in older adults. - If GoLytely is ineffective or poorly tolerated, contact the primary provider for consideration of alternative agents (e.g., lubiprostone, linaclotide, prucalopride) or further evaluation. Lifestyle and Supportive Measures: - Encourage adequate hydration (unless contraindicated by comorbidities such as heart failure or renal impairment). - Increase dietary fiber gradually (e.g., oat bran, psyllium, polycarbophil), as tolerated, to a target of 20?35 g/day. Note that patients with slow transit or outlet obstruction may not respond to fiber alone. - Scheduled toileting after meals and increased physical activity as able. - Maintain a stool diary to track frequency, consistency, and ease of passage. Monitoring and Follow-Up: - Monitor for return of normal bowel function and resolution of symptoms. - If constipation persists despite GoLytely, or if symptoms recur, follow up with general surgery as planned for further evaluation (including consideration of pelvic floor dysfunction, slow transit constipation, or surgical intervention if indicated). Return Precautions: - Seek immediate medical attention for any of the following: - Severe abdominal pain, distension, or vomiting - Inability to pass gas or stool for >72 hours despite therapy - Signs of bowel obstruction (e.g., progressive abdominal distension, pain, nausea, vomiting) - Rectal bleeding, melena, or hematochezia - Unintentional weight loss, new anemia, or change in stool caliber (may indicate underlying malignancy) - Signs of dehydration (e.g., dizziness, confusion, decreased urine output) - Fever or signs of infection Additional Considerations: - Review all current medications for agents that may contribute to constipation (e.g., opioids, anticholinergics, calcium channel blockers) and adjust as appropriate. - If symptoms persist or worsen, further diagnostic evaluation (e.g., colonoscopy, anorectal manometry, balloon expulsion test) may be indicated. - Consider referral to gastroenterology for refractory cases or if pelvic floor dysfunction is suspected. Patient Education: - Constipation is common in older adults and often multifactorial. Most cases respond to a combination of lifestyle modification and pharmacologic therapy, but persistent or severe symptoms warrant further evaluation. Contact Information: - For questions or concerns, contact the primary provider or return to the emergency department as indicated above. Print Language: Malay Coding Level of Care Code ED Fire Patroller for Carmen Rosas
--- NOTE | 2024-12-31 10:59 | PC.NURSE ---
Referred pt to general surgery.
== END 2024-12-26 23:18 | disposition home or self-care (01) ==
PROVIDERS: Family Medicine; Emergency Provider Physician Assistant; PCP Family Medicine
DX: K56.0 Paralytic ileus (principal); K59.00 Constipation, unspecified; Z79.4 Long term (current) use of insulin; Z79.02 Long term (current) use of antithrombotics/antiplatelets; Z79.84 Long term (current) use of oral hypoglycemic drugs; Z87.891 Personal history of nicotine dependence; E11.42 Type 2 diabetes mellitus with diabetic polyneuropathy
CPT/HCPCS: 36415; 74018; 80053; 81001; 83690; 85025; 99284; J9999

== ENCOUNTER 2024-12-30 12:57 | Emergency (ER) | payer OTHER, MEDICARE, SELFPAY ==
--- OUTSIDE RECORDS SUMMARY | 2024-12-24 12:20 | XMS_ITS | Encounter Summary ---
Author Name [facility] Organization [facility] [place] [facility] [place] Address [address] [place] [address] Care Team Providers Care Lamp Decorator Name Role Phone SHAVONNE GARDNER Primary Care [...] PART B September 12, 2009 PART B [id number] SHANKS, NCENT PATIENT MEDICARE (WNR) MEDICARE (M) PART A September 12, 2009 PART A [id number] SHANKS, NCENT PATIENT MEDICARE (WNR) MEDICARE (M) PART B September 12, 2009 PART B [id number] SHANKS, NCENT PATIENT MEDICARE (WNR) MEDICARE (M) PART B September 12, 2009 PART B [id number] SHANKS, NCENT PATIENT MEDICARE (WNR) MEDICARE (M) PART A September 12, 2009 PART A [id number] NANCYS, NCCOBY PATIENT MEDICARE (WNR) MEDICARE (M) PART A September 12, 2009 PART A [id number] NANCYS, NCCOBY PATIENT Selected Encounter This section includes the information on record at [place] for the Encounter. Date/Time Encounter Type Encounter Description Reason Provider Source Dec 24, 2024 05:20 PM Outpatient Encounter COMMUNITY CARE CONSULT ROLO CARDOZO Sina Encounter Template Text not used by [place] Plan of Treatment: Future Appointments (+ 6 months) and Future Tests (+/- 45 days) The Plan of Treatment section includes future care activities for the patient from all [place] treatmentfacilities. This section includes future appointments and future orders which are active, pending or scheduled. Future Appointments This section includes appointments that were scheduled to occur 6 months from the date of the Encounter, up to a maximum of 20 appointments. The data comes from all [place] treatment facilities. Appointment Date/Time Appointment Type Appointme nt Facility Name Jan 16, 2025 01:00 PM AMBULATORY - MEDICINE [facility] Active, Pending, and Scheduled Orders This section includes a listing of several types of active, pending, and scheduled orders, including clinic medications orders, diagnostic test orders, procedure orders and consult orders; where the start date of the order is 45 days before the date of the Encounter or 45 days after the date of theEncounter. The data comes from all [place] treatment facilities. Test Date/Time Test Type Test Details Facility Name Dec 16, 2024 11:26 AM Laboratory - Chemi stry Order POC UA (STL-PB-MA) [facility] Lab Results: +/- 30 days of the encounter This section includes the Chemistry and Hematology Lab Results on record with [place] for the patient. Radiology Reports and Pathology Reports are provided separately, in subsequent sections. Lab Results This section contains the Chemistry/Hematology Results that were resulted 30 days before or 30 daysafter the date of the Encounter. Date/Time Source Result Type Result - Unit Interpretation Reference Range Specimen Type Comment Dec 16, 2024 12:22 PM [facility] HGA1C BLOOD Specimen Type: BLOOD No comment entered. Ordering Provider: SHAVONNE GARDNER Report Released Date/Time: Jan 01, 2024 10:42 AM Reporting Lab: [place] [facility] [address] [place] [address] Performing Lab: [place] [facility] [address] [place] [address] HGA1C 7.0 H 4.0-6.0 Dec 16, 2024 12:22 PM [facility] URINE ALBUMIN PROFILE-ih (PB) URINE Specimen Type: URINE No comment entered. Ordering Provider: SHAVONNE GARDNER Report Released Date/Time: Jan 01, 2024 10:42 AM Reporting Lab: [place] [facility] [address] [place] [address] Performing Lab: [place] [facility] [address] [place] [address] URINE ALBUMIN (PB-STL) 12.63 mg/L uACR (PB-MA) 18.42 mg/g 0-30 CREATININE URINE/OTHERS 68.56 mg/dL Dec 16, 2024 12:22 PM [facility] TSH (MA-PB) SERUM Specimen Typ e: SERUM No comment entered. Ordering Provider: SHAVONNE GARDNER Report Released Date/Time: Jan 01, 2024 10:42 AM Reporting Lab: [place] [facility] [address] [place] [address] Performing Lab: [place] [facility] [address] [place] [address] TSH 0.142 u[IU]/mL L 0.47-5 FREE T4(REFLEX) 1.33 ng/dL 0.7-1.48 Dec 16, 2024 12:22 PM [facility] CHOLESTEROL PANEL (PB) PLASMA Specimen Type: P LASMA No comment entered. Ordering Provider: SHAVONNE GARDNER Report Released Date/Time: Jan 01, 2024 10:42 AM Reporting Lab: [place] [facility] [address] [place] [address] Performing Lab: [place] [facility] [address] [place] [address] CHOLESTEROL 91 mg/dL 0-200 TRIGLYCERIDE 67 mg/dL 0-150 CALCULATED LDL 37.6 mg/dL HDL(New) 40.0 mg/dL H >40 HDL % OF TOTAL CHOLESTEROL (PB) 44.0 >25 Dec 16, 2024 12:22 PM [facility] COMPREHENSIVE METABOLIC PANEL PLASMA Specimen Type: PLASMA No comment entered. Ordering Provider: SHAVONNE GARDNER Report Released Date/Time: Jan 01, 2024 10:42 AM Reporting Lab: [place] [facility] [address] [place] [address] Performing Lab: [place] [facility] [address] [place] [address] CREATININE 0.61 mg/dL L 0.7-1.3 UREA NITROGEN [...] 2020) 97 Dec 16, 2024 12:22 PM [facility] CBC BLOOD Specimen Type: BLOOD No comment entered. Ordering Provider: SHAVONNE GARDNER Report Released Date/Time: Jan 01, 2024 10:42 AM Reporting Lab: [place] [facility] [address] [place] [address] Performing Lab: [place] [facility] [address] [place] [address] WBC 8.5 10*3/uL 3.6-11.2 RBC 4.39 10*6/uL [...] 0. 00-0.05 Dec 16, 2024 11:44 AM [facility] POC UA (STL-PB-MA) URINE Specimen Type: URINE No comment entered. Ordering Provider: SHAVONNE GARDNER Report Released Date/Time: Dec 16, 2024 11:51 AM Reporting Lab: [facility] [address] [facility] [address] Performing Lab: [facility] [address] [facility] [address] PROTEIN POC UA Negative mg/dL Negative BLOOD [...] and tobacco- related health factors from the [place] facility where the Encounter took place. Current Smoking Status This section includes the most current smoking, or tobacco-related health factor, from the [place] facility where the Encounter took place. Date/Time Current Smoking Status Comment Wilmar callahan September 29, 2014 11:38 AM QUIT TOBACCO >7 YEARS AGO [facility] Radiology Reports: +/- 30 days of [...] the Encounter. The data comes from all [place] treatment facilities. Date/Time Radiology Report Provider Source Dec 16, 2024 11:22 AM ABDOMEN X-RAY,1 EW: NANCYFarnazENMANOAH VINC [id number] -[id number] M Exm Date: DEC 16, 2024@11:22 Req Phys: HALEY CONNOLLY Loc: [facility] ([facility]) ( [facility] Service: [place] [address] (Case [id number] COMPLETE) ABDOMEN X-RAY,1 VIEW (RAD Detailed) CPT:61324 Reason for Study: right flank pain Clinical History: Report Status: Verified Date Reported: DEC 16, 2024 Date Verified: DEC 16, 2024 [employer] Software Developer E-Sig: Report: AP views of the abdomen/pelvis [...] obstruction Primary Interpreting Staff: MENG HART RADIOLOGIST ([employer] Software Developer, no e-sig) /MENG Fischer [facility] Dec 16, 2024 11:22 AM SPINE LUMBOSACRAL 2 OR 3 VIEWS: NANCYFarnazENMANOAH VINC [id number] -[id number] M Exm Date: DEC 16, 2024@11:22 Req Phys: HALEY CONNOLLY Loc: [facility] ([facility]) ( Img Loc: PB-XRAY [facility] Service: [place] [address] (Case [id number] COMPLETE) SPINE LUMBOSACRAL 2 OR 3 VIEWS (RAD Detailed) CPT:82766 Reason for Study: right flank pain Clinical History: for 7 days Report Status: Verified Date Reported: DEC 16, 2024 Date Verified: DEC 16, 2024 [employer] Software Developer E-Sig: Report: AP and lateral views of [...] hypomotility Primary Interpreting Staff: MENG HART, RADIOLOGIST ([employer] Software Developer, no e-sig) /MENG Fischer [facility] Encounter Notes: All associated encounter [...] discharge: Dec Disposition Discharge to home from [facility] ER Clinical Impression: Adynamic Ileus Follow up with PCP CT Imaging showing Ileus- Instructions for care given (ED Provider: Mitzi GALVAN) Episode of Care Complete. Signed ER Report sent to [facility] for scanning. Alerting PACT team for review /shanita/ ROLO CARDOZO RN [facility] Signed: 12/24/2024 17:26 Receipt Acknowledged By: 12/25/2024 10:10 /es/ Shavonne Gardner MD [facility] Primary Care 12/25/2024 12:55 /es/ SOLIS TORRES 12/27/2024 10:42 /es/ HANNAH GARCIA LPN [facility] 12/25/2024 10:05 /august Mala BENAVIDES RN --- Original Document --- 12/23/24 COMMUNITY CARE-NADINE SELF PRESENTING CARE COORD PLAN 657A4 PB: Emergency Notification Intake Date Presenting to the Facility: Dec 09:28AM AN/SSN 2 4 OPERATOR Method of Contact:Provider Notified from ECR worklist Notification ID: [id number] HSRM Referral #: Portal Generated [facility] Name: Hospital: [facility] Address: [address] [place] [address] City: [place] State: [place] Zip Code: [address] [facility] Facility Point of Contact: Name: Natalia Pacheco Chief complaint: Back Pain, No Bowel Movement in 7 days Disposition Unknown at time of intake note entry /es/ ROLO CARDOZO RN [facility] Signed: 12/24/2024 17:23 12/23/2024 ADDENDUM STATUS: COMPLETED VistA Imaging Scanned Document - Addendum. [facility] SCANNED DOCUMENT SIGNATURE NOT REQUIRED Electronically Filed: 12/25/2024 by: JOVANNA Barger [facility] 12/25/2024 ADDENDUM STATUS: COMPLETED [id number], [id number] Clinical Review /august L LIONEL BENAVIDES RN Signed: 12/25/2024 12:23 12/25/2024 ADDENDUM STATUS: COMPLETED ER Report in email from Vianca Cardozo dated December 24, 2024. /es/ SOLIS TORRES Signed: 12/25/2024 12:56 12/27/2024 ADDENDUM STATUS: UNSIGNED You may not VIEW this UNSIGNED Addendum. ROOL CARDOZO [facility] Dec 23, 2024 11:16 AM NONVA NOTE: LOCAL TITLE: COMMUNITY CARE-NADINE SELF PRESENTING CARE COORD PLAN STANDARD TITLE: NONVA NOTE DATE OF NOTE: DEC 23, 2024@11:16 ENTRY DATE: DEC 24, 2024@17:21:38 AUTHOR: ROLO CARDOZO COSIGNER: URGENCY: STATUS: COMPLETED COMMUNITY CARE-NADINE SELF PRESENTING CARE COORD PLAN 657A4 PB Has ADDENDA Emergency Notification Intake Date Presenting to the Facility: Dec 09:28AM AN/SSN 2 4 OPERATOR Method of Contact:Provider Notified from ECR worklist Notification ID: [id number] [facility] Referral #: Portal Generated [facility] Name: Hospital: [facility] Address: [address] [place] [address] City: [place] State: [place] Zip Code: [address] [facility] Facility Point of Contact: Name: Natalia Pacheco Chief complaint: Back Pain, No Bowel Movement in 7 days Disposition Unknown at time of intake note entry /shanita/ ROLO CARDOZO RN [facility] Signed: 12/24/2024 17:23 12/24/2024 ADDENDUM STATUS: COMPLETED Discharge Disposition Date of discharge: Dec Disposition Discharge to home from [facility] ER Clinical Impression: Adynamic Ileus Follow up with PCP CT Imaging showing Ileus- Instructions for care given (ED Provider: Mitzi GALVAN) Episode of Care Complete. Signed ER Report sent to [facility] for scanning. Alerting PACT team for review /shanita/ ROLO CARDOZO RN [facility] Signed: 12/24/2024 17:26 Receipt Acknowledged By: 12/25/2024 10:10 /es/ Shavonne Gardner MD [facility] 12/25/2024 12:55 /es/ SOLIS TORRES 12/27/2024 10:42 /es/ HANNAH GARCIA LPN [facility] 12/25/2024 10:05 /es/ MEGHAN BENAVIDES,RN 12/23/2024 ADDENDUM STATUS: COMPLETED VistA Imaging Scanned Document - Addendum. [facility] SCANNED DOCUMENT SIGNATURE NOT REQUIRED Electronically Filed: 12/25/2024 by: JOVANNA Barger [facility] 12/25/2024 ADDENDUM STATUS: COMPLETED [id number], 1703 Clinical Review /es/ MEGHAN BENAVIDES,RN Signed: 12/25/2024 12:23 12/25/2024 ADDENDUM STATUS: COMPLETED ER Report in email from Vianca Cardozo dated December 24, 2024. /es/ SOLIS TORRES Signed: 12/25/2024 12:56 12/27/2024 ADDENDUM STATUS: COMPLETED Called and spoke with [facility] regarding ER follow up- [facility] advised he was back in ER last night- the dr prescribed some Go Lightly and he is taking that to help clean out- he has blockage, if that is unsuccessful, will have to have a colonoscopy. we have not received info on last nights ER visit. He is scheduled for appt with Dr Gardner next month. /es/ HANNAH GARCIA LPN [facility] Signed: 12/27/2024 10:49 ROLO CARDOZO [facility] Dec 23, 2024 03:31 AM NONVA NOTE: LOCAL TITLE: COMMUNITY CARE-NADINE SELF PRESENTING CARE COORD PLAN STANDARD TITLE: NONVA NOTE DATE OF NOTE: DEC 23, 2024@03:31 ENTRY DATE: DEC 24, 2024@17:33:16 AUTHOR: ROLO CARDOZO EXP COSIGNER: URGENCY: STATUS: COMPLETED COMMUNITY CARE-NADINE SELF PRESENTING CARE COORD PLAN 657A4 PB Has ADDENDA Emergency Notification Intake Date Presenting to the Facility: Dec 02:30AM AN/SSN 2 4 OPERATOR Method of Contact:Provider Notified from ECR worklist Notification ID: [id number] [facility] Referral #: Portal Generated [facility] Name: Hospital: [facility] Address: [address] [place] [address] City: [place] State: [place] Zip Code: [address] Community Facility Point of Contact: Name: Ely Pacheco Chief complaint: Weakness Arrived by Ambulance Disposition Unknown at time of intake note entry /shanita/ ROLO CARDOZO RN [facility] Signed: 12/24/2024 17:35 12/24/2024 ADDENDUM STATUS: COMPLETED Entered on worng patient /shanita/ ROLO CARDOZO RN [facility] Signed: 12/24/2024 17:36 ROLO CARDOZO [facility]
--- OUTSIDE RECORDS SUMMARY | 2024-12-27 07:20 | XMS_ITS ---
Author Name [facility] [place] [place] Organization [facility] [place] [facility] [place] Address [address] [place] [address] Care Team Providers Care Charm Filter Operator Helper Name Role Phone SHAVONNE GARDNER Primary Care [...] PART B September 12, 2009 PART B [id number] SHANKS, NCENT PATIENT MEDICARE (WNR) MEDICARE (M) PART A September 12, 2009 PART A [id number] SHANKS, NCENT PATIENT MEDICARE (WNR) MEDICARE (M) PART B September 12, 2009 PART B [id number] [phone] SHANKS, NCENT PATIENT MEDICARE (WNR) MEDICARE (M) PART A September 12, 2009 PART A [id number] SHANKS, NCENT PATIENT MEDICARE (WNR) MEDICARE (M) PART B September 12, 2009 PART B [id number] SHANKS, NCCOBY PATIENT MEDICARE (WNR) MEDICARE (M) PART A September 12, 2009 PART A [id number] NANCYS, NCCOBY PATIENT Selected Encounter This section includes the information on record at [place] for the Encounter. Date/Time Encounter Type Encounter Description Reason Provider Source Dec 27, 2024 12:20 PM Outpatient Encounter COMMUNITY CARE CONSULT LIONEL IHE Encounter Template Text not used by [place] Plan of Treatment: Future Appointments (+ 6 months) and Future Tests (+/- 45 days) The Plan of Treatment section includes future care activities for the patient from all [place] treatmentfacilities. This section includes future appointments and future orders which are active, pending or scheduled. Future Appointments This section includes appointments that were scheduled to occur 6 months from the date of the Encounter, up to a maximum of 20 appointments. The data comes from all [place] treatment facilities. Appointment Date/Time Appointment Type Appointme nt Facility Name Jan 16, 2025 01:00 PM AMBULATORY - MEDICINE [facility] Active, Pending, and Scheduled Orders This section includes a listing of several types of active, pending, and scheduled orders, including clinic medications orders, diagnostic test orders, procedure orders and consult orders; where the start date of the order is 45 days before the date of the Encounter or 45 days after the date of theEncounter. The data comes from all [place] treatment facilities. Test Date/Time Test Type Test Details Facility Name Dec 16, 2024 11:26 AM Laboratory - Chemi stry Order POC UA (STL-PB-MA) URINE SP [facility] Lab Results: +/- 30 days of the encounter This section includes the Chemistry and Hematology Lab Results on record with [place] for the patient. Radiology Reports and Pathology Reports are provided separately, in subsequent sections. Lab Results This section contains the Chemistry/Hematology Results that were resulted 30 days before or 30 daysafter the date of the Encounter. Date/Time Source Result Type Result - Unit Interpretation Reference Range Specimen Type Comment Dec 16, 2024 12:22 PM [facility] HGA1C BLOOD Specimen Type: BLOOD No comment entered. Ordering Provider: SHAVONNE GARDNER Report Released Date/Time: Jan 01, 2024 10:42 AM Reporting Lab: [place] [facility] [address] [place] [address] Performing Lab: [place] [facility] [address] [place] [address] HGA1C 7.0 H 4.0-6.0 Dec 16, 2024 12:22 PM [facility] URINE ALBUMIN PROFILE-ih (PB) URINE Specimen Type: URINE No comment entered. Ordering Provider: SHAVONNE GARDNER Report Released Date/Time: Jan 01, 2024 10:42 AM Reporting Lab: [place] [facility] [address] [place] [address] Performing Lab: [place] [facility] [address] [place] [address] URINE ALBUMIN (PB-STL) 12.63 mg/L uACR (PB-MA) 18.42 mg/g 0-30 CREATININE URINE/OTHERS 68.56 mg/dL Dec 16, 2024 12:22 PM [facility] TSH (MA-PB) SERUM Specimen Typ e: SERUM No comment entered. Ordering Provider: SHAVONNE GARDNER Report Released Date/Time: Jan 01, 2024 10:42 AM Reporting Lab: [place] [facility] [address] [place] [address] Performing Lab: [place] [facility] [address] [place] [address] TSH 0.142 u[IU]/mL L 0.47-5 FREE T4(REFLEX) 1.33 ng/dL 0.7-1.48 Dec 16, 2024 12:22 PM [facility] CHOLESTEROL PANEL (PB) PLASMA Specimen Type: P LASMA No comment entered. Ordering Provider: SHAVONNE GARDNER Report Released Date/Time: Jan 01, 2024 10:42 AM Reporting Lab: [place] [facility] [address] [place] [address] Performing Lab: [place] [facility] [address] [place] [address] CHOLESTEROL 91 mg/dL 0-200 TRIGLYCERIDE 67 mg/dL 0-150 CALCULATED LDL 37.6 mg/dL HDL(New) 40.0 mg/dL H >40 HDL % OF TOTAL CHOLESTEROL (PB) 44.0 >25 Dec 16, 2024 12:22 PM [facility] COMPREHENSIVE METABOLIC PANEL PLASMA Specimen Type: PLASMA No comment entered. Ordering Provider: SHAVONNE GARDNER Report Released Date/Time: Jan 01, 2024 10:42 AM Reporting Lab: [place] [facility] [address] [place] [address] Performing Lab: [place] [facility] [address] [place] [address] CREATININE 0.61 mg/dL L 0.7-1.3 UREA NITROGEN [...] 2020) 97 Dec 16, 2024 12:22 PM [facility] CBC BLOOD Specimen Type: BLOOD No comment entered. Ordering Provider: SHAVONNE GARDNER Report Released Date/Time: Jan 01, 2024 10:42 AM Reporting Lab: [place] [facility] [address] [place] [address] Performing Lab: [place] [facility] [address] [place] [address] WBC 8.5 10*3/uL 3.6-11.2 RBC 4.39 10*6/uL [...] 0. 00-0.05 Dec 16, 2024 11:44 AM [facility] POC UA (STL-PB-MA) URINE Specimen Type: URINE No comment entered. Ordering Provider: SHAVONNE GARDNER Report Released Date/Time: Dec 16, 2024 11:51 AM Reporting Lab: [facility] [address] [facility] [address] Performing Lab: [facility] [address] [facility] [address] PROTEIN POC UA Negative mg/dL Negative BLOOD [...] and tobacco- related health factors from the [place] facility where the Encounter took place. Current Smoking Status This section includes the most current smoking, or tobacco-related health factor, from the [place] facility where the Encounter took place. Date/Time Current Smoking Status Comment Wilmar callahan September 29, 2014 11:38 AM QUIT TOBACCO >7 YEARS AGO [facility] Radiology Reports: +/- 30 days of [...] the Encounter. The data comes from all [place] treatment facilities. Date/Time Radiology Report Provider Source Dec 16, 2024 11:22 AM ABDOMEN X-RAY,1 EW: NANCYFarnazENMANOAH VINC [id number] -1945 M Exm Date: DEC 16, 2024@11:22 Req Phys: HALEY CONNOLLY Loc: [facility] ( Img Loc: [facility] Service: [place] [address] (Case [id number] COMPLETE) ABDOMEN X-RAY,1 VIEW (RAD Detailed) CPT:75596 Reason for Study: right flank pain Clinical History: Report Status: Verified Date Reported: DEC 16, 2024 Date Verified: DEC 16, 2024 Forklift Wheel Loader E-Sig: Report: AP views of the abdomen/pelvis [...] obstruction Primary Interpreting Staff: MENG HART RADIOLOGIST (Forklift Wheel Loader, no e-sig) /MENG Fischer [facility] Dec 16, 2024 11:22 AM SPINE LUMBOSACRAL 2 OR 3 VIEWS: NANCYFarnazNOAH VINC [id number] -1945 M Exm Date: DEC 16, 2024@11:22 Req Phys: HALEY CONNOLLY Loc: [facility] ( Img Loc: [facility] Service: [place] [address] (Case [id number] COMPLETE) SPINE LUMBOSACRAL 2 OR 3 VIEWS (RAD Detailed) CPT:29221 Reason for Study: right flank pain Clinical History: for 7 days Report Status: Verified Date Reported: DEC 16, 2024 Date Verified: DEC 16, 2024 Forklift Wheel Loader E-Sig: Report: AP and lateral views of [...] hypomotility Primary Interpreting Staff: MENG HART, RADIOLOGIST (Forklift Wheel Loader, no e-sig) /MENG Fischer [facility] Encounter Notes: All associated encounter notes This section contains the clinical notes associated to the Encounter. Date/Time Encounter Note(s) Provider Source Dec 26, 2024 04:45 PM NONVA NOTE: LOCAL TITLE: COMMUNITY CARE-NADINE SELF PRESENTING CARE COORD PLAN STANDARD TITLE: NONVA NOTE DATE OF NOTE: DEC 26, 2024@16:45 ENTRY DATE: DEC 27, 2024@12:21:09 AUTHOR: MEGHAN FLOWERS EXP COSIGNER: URGENCY: STATUS: COMPLETED COMMUNITY CARE-NADINE SELF PRESENTING CARE COORD PLAN [id number] PB Has ADDENDA Emergency Notification Intake Date Presenting to the Facility: 12/26/2024 02:09 PM Method of Contact: Provider Notification ID: [id number] [facility] Referral #: Portal Generated Hospital: [facility] City: [place] State: [place] Chief complaint: Pain in back no BM in 14 Days Date of discharge: Dec Discharge to home Patient presented with continued constipation despite at home therapy. Was seen in the emergency department a few days ago diagnosed with a diverticulosis and was discharged home. Labs obtained here unremarkable, he chronically has hyponatremia. KUB showing no change from previous x-ray, no need to CT scan as he recently had this done. Fecal disimpaction was attempted however there was no stool able to be retrieved, and he also got minimal relief from Fleet enema, mineral oil enema, glycerin suppository, lactulose, and mag citrate. Spoke with on-call surgeon, Dr. Dahl, who had stated as long as patient is comfortable no reason to admit and this can follow-up as an outpatient, and with persistent constipation may require colonoscopy guided fecal disimpaction. Prior to discharge, patient did have another stool and does state that he feels better, I will send GoLytely to the pharmacy for him to try at home, with him being instructed to follow-up with general surgery and/or primary care for reevaluation and if his constipation persists. He agrees with this plan. Discharged home at this time. Patient Disposition: Home Clinical Impression: Adynamic ileus Constipation Condition: Stable Prescriptions: New peg 3350-electrolytes [Golytely] 236-22.74-6.74 -5.86 gram recon soln 240 ml PO Q10M Qty: 4000 0RF Rx Instructions: until fecal effluent is clear (ED Provider: COLE Campbell) Current surgery consult in place # [id number] Dr. Chinedu Wetzel [facility] Referral Number: [id number] Expiration Date: 2025-05-17 // MEGHAN BENAVIDES,RN Signed: 12/27/2024 12:27 Receipt Acknowledged By: 12/30/2024 10:06 /es/ Shavonne Gardner MD [facility] Primary [facility] * AWAITING SIGNATURE * TRINH FERRARO * AWAITING SIGNATURE * HANNAH GARCIA 12/27/2024 15:03 /es/ SOLIS TORRES 12/26/2024 ADDENDUM STATUS: COMPLETED VistA Imaging Scanned Document - Addendum. [facility] SCANNED DOCUMENT SIGNATURE NOT REQUIRED Electronically Filed: 12/30/2024 by: JOVANNA Barger [facility] MEGHAN FLOWERS [facility]
--- OUTSIDE RECORDS SUMMARY | 2024-12-30 05:36 | XMS_ITS | Encounter Summary ---
Author Name [facility] [place] Organization [facility] [place] Address [address] [place] [address] Care Team Providers Care Machine Operator Transplanter Name Role Phone SHAVONNE BISWAS Primary Care Provider Unavailabl e Insurance Providers: [...] PART B September 12, 2009 PART B [id number] SHANKS, NCENT PATIENT MEDICARE (WNR) MEDICARE (M) PART A September 12, 2009 PART A [id number] SHANKS, NCENT PATIENT MEDICARE (WNR) MEDICARE (M) PART B September 12, 2009 PART B [id number] 46A SHANKS, NCENT PATIENT MEDICARE (WNR) MEDICARE (M) PART A September 12, 2009 PART A [id number] [phone] SHANKS, NCENT PATIENT MEDICARE (WNR) MEDICARE (M) PART B September 12, 2009 PART B [id number] SHANKS, NCENT PATIENT MEDICARE (WNR) MEDICARE (M) PART A September 12, 2009 PART A [id number] SHANKS, NCENT PATIENT Selected Encounter This section includes the information on record at [place] for the Encounter. Date/Time Encounter Type Encounter Description Reason Pro vider Source Dec 30, 2024 10:36 AM Outpatient Encounter TELEPHONE TRIAGE IHE Encounter Template Text not used by [place] Plan of Treatment: Future Appointments (+ 6 months) and Future Tests (+/- 45 days) The Plan of Treatment section includes future care activities for the patient from all [place] treatmentfacilities. This section includes future appointments and future orders which are active, pending or scheduled. Future Appointments This section includes appointments that were scheduled to occur 6 months from the date of the Encounter, up to a maximum of 20 appointments. The data comes from all [place] treatment facilities. Appointment Date/Time Appointment Type Appointme nt Facility Name Jan 16, 2025 01:00 PM AMBULATORY - MEDICINE [facility] Active, Pending, and Scheduled Orders This section includes a listing of several types of active, pending, and scheduled orders, including clinic medications orders, diagnostic test orders, procedure orders and consult orders; where the start date of the order is 45 days before the date of the Encounter or 45 days after the date of theEncounter. The data comes from all [place] treatment facilities. Test Date/Time Test Type Test Details Facility Name Dec 16, 2024 11:26 AM Laboratory - Chemi stry Order POC UA (STL-PB-MA) URINE SP [facility] Lab Results: +/- 30 days of the encounter This section includes the Chemistry and Hematology Lab Results on record with [place] for the patient. Radiology Reports and Pathology Reports are provided separately, in subsequent sections. Lab Results This section contains the Chemistry/Hematology Results that were resulted 30 days before or 30 daysafter the date of the Encounter. Date/Time Source Result Type Result - Unit Interpretation Reference Range Specimen Type Comment Dec 16, 2024 12:22 PM [facility] URINE ALBUMIN PROFILE-ih (PB) URINE Specimen Type: URINE No comment entered. Ordering Provider: SHAVONNE BISWAS Report Released Date/Time: Jan 01, 2024 10:42 AM Reporting Lab: [place] [facility] [address] [place] [address] Performing Lab: [place] [facility] [address] [place] [address] URINE ALBUMIN (PB-STL) 12.63 mg/L uACR (PB-MA) 18.42 mg/g 0-30 CREATININE URINE/OTHERS 68.56 mg/dL Dec 16, 2024 12:22 PM [facility] HGA1C BLOOD Specimen Type: BLOOD No comment entered. Ordering Provider: SHAVONNE BISWAS Report Released Date/Time: Jan 01, 2024 10:42 AM Reporting Lab: [place] [facility] [address] [place] [address] Performing Lab: [place] [facility] [address] [place] [address] HGA1C 7.0 H 4.0-6.0 Dec 16, 2024 12:22 PM [facility] TSH (MA-PB) SERUM Specimen Typ e: SERUM No comment entered. Ordering Provider: SHAVONNE BISWAS Report Released Date/Time: Jan 01, 2024 10:42 AM Reporting Lab: [place] [facility] [address] [place] [address] Performing Lab: [place] [facility] [address] [place] [address] TSH 0.142 u[IU]/mL L 0.47-5 FREE T4(REFLEX) 1.33 ng/dL 0.7-1.48 Dec 16, 2024 12:22 PM [facility] CHOLESTEROL PANEL (PB) PLASMA Specimen Type: P LASMA No comment entered. Ordering Provider: SHAVONNE BISWAS Report Released Date/Time: Jan 01, 2024 10:42 AM Reporting Lab: [place] [facility] [address] [place] [address] Performing Lab: [place] [facility] [address] [place] [address] CHOLESTEROL 91 mg/dL 0-200 TRIGLYCERIDE 67 mg/dL 0-150 CALCULATED LDL 37.6 mg/dL HDL(New) 40.0 mg/dL H >40 HDL % OF TOTAL CHOLESTEROL (PB) 44.0 >25 Dec 16, 2024 12:22 PM [facility] COMPREHENSIVE METABOLIC PANEL PLASMA Specimen Type: PLASMA No comment entered. Ordering Provider: SHAVONNE BISWAS Report Released Date/Time: Jan 01, 2024 10:42 AM Reporting Lab: [place] [facility] [address] [place] [id number] Performing Lab: [place] [facility] [address] [place] [id number] CREATININE 0.61 mg/dL L 0.7-1.3 UREA NITROGEN [...] 2020) 97 Dec 16, 2024 12:22 PM [facility] CB CBC BLOOD Specimen Type: BLOOD No comment entered. Ordering Provider: SHAVONNE BISWAS Report Released Date/Time: Jan 01, 2024 10:42 AM Reporting Lab: [place] [facility] [address] [place] [id number] Performing Lab: [place] [facility] [address] [place] [facility] WBC 8.5 10*3/uL 3.6-11.2 RBC 4.39 10*6/uL [...] 0. 00-0.05 Dec 16, 2024 11:44 AM [facility] POC UA (STL-PB-MA) URINE Specimen Type: URINE No comment entered. Ordering Provider: SHAVONNE BISWAS Report Released Date/Time: Dec 16, 2024 11:51 AM Reporting Lab: [facility] [address] [facility] [address] Performing Lab: [facility] [address] [facility] [address] PROTEIN POC UA Negative mg/dL Negative BLOOD [...] and tobacco- related health factors from the [place] facility where the Encounter took place. Current Smoking Status This section includes the most current smoking, or tobacco-related health factor, from the [place] facility where the Encounter took place. Date/Time Current Smoking Status Analia callahan Apr 01, 2008 11:57 AM TOBACCO [facility] S[facility] Tobacco Use History This section includes a history of the smoking, or tobacco-related health factors, that were collected on or before the date of the Encounter. The data comes from the [place] facility where the Encounter took place. Date/Time Smoking Status/Tobacco Use Comment Christina merida Apr 01, 2008 11:57 AM TOBACCO OFFERRED S [facility] SMOKING [facility] Oct 18, 2007 01:20 PM CURRENT TOBACCO USER [facility] Oct 18, 2007 01:20 PM TOBACCO MEDS OFFERED BUT DECLINE D [facility] Oct 18, 2007 01:[address] [facility] SMOKING [facility] Radiology Reports: +/- 30 days of the [...] the Encounter. The data comes from all [place] treatment facilities. Date/Time Radiology Report Provider Source Dec 16, 2024 11:22 AM SPINE LUMBOSACRAL 2 OR 3 VIEWS: NOAH GRANT [facility] [id number] -1945 M Exm Date: DEC 16, 2024@11:22 Req Phys: HALEY CONNOLLY Loc: [facility] [place] ( [facility] [place] Service: [place] [address] (Case [id number] COMPLETE) SPINE LUMBOSACRAL 2 OR 3 VIEWS (RAD Detailed) CPT:44147 Reason for Study: right flank pain Clinical History: for 7 days Report Status: Verified Date Reported: DEC 16, 2024 Date Verified: DEC 16, 2024 Barge Engineer E-Sig: Report: AP and lateral views of [...] pattern compatible hypomotility Primary Interpreting Staff: MENG HART RADIOLOGIST (Barge Engineer, no e-sig) /MENG Fischer [facility] Dec 16, 2024 11:22 AM ABDOMEN X-RAY,1 EW: NOAH GRANT [id number] -1945 M Exm Date: DEC 16, 2024@11:22 Req Phys: AHLEY CONNOLLY Pat Loc: [facility] [facility] [place] ( [facility] [place] Service: [place] [address] (Case [id number] COMPLETE) ABDOMEN X-RAY,1 VIEW (RAD Detailed) CPT:35806 Reason for Study: right flank pain Clinical History: Report Status: Verified Date Reported: DEC 16, 2024 Date Verified: DEC 16, 2024 Barge Engineer E-Sig: Report: AP views of the abdomen/pelvis [...] obstruction Primary Interpreting Staff: MENG HART RADIOLOGIST (Barge Engineer, no e-sig) /MENG Fischer [facility] Encounter Notes: All associated encounter notes This section contains the clinical notes associated to the Encounter. Date/Time Encounter Note(s) Provider Source Dec 30, 2024 10:36 AM RN PROGRESS NOTE: LOCAL TITLE: CCC: CLINICAL TRIAGE STANDARD TITLE: RN PROGRESS NOTE DATE OF NOTE: DEC 30, 2024@10:36:35 ENTRY DATE: DEC 30, 2024@10:36:35 AUTHOR: APRIL PELAEZ COSIGNER: URGENCY: STATUS: COMPLETED Caller Verification Call Back Number: [phone] Caller/Recipient Relation to Patient: Self Caller Name: NOAH GRANT Triage Summary Conducted triage/discussed symptoms Pain Score: 5 (Moderate to Severe Pain) Utilized the Triage Tool: Yes Chief Complaint: Constipation Nurse's Recommendation / WHEN: Within 4 Hours Nurse's Recommendation / WHERE: ED Other WHEN/WHERE modifier reason: Distance from Hospital Patient Disposition Patient/Caregiver agrees to plan of care: Yes Patient WHERE: ED Other Patient WHEN: Within 4 Hours Nursing Plan and Disposition Referred patient to higher level of care Instructed to go to Emergency Room (ER) Advised of Financial Disclaimer: Patient advised that recommendation for care provided during the call does not constitute an approval or authorization for payment by the [place] or its staff. Patient advised to report a community ED visit to the [facility] Office of Community Care at within 72 hours. Other course(s) of action Generated msg to PACT/Provider Provided guidance for worsening symptoms: *Caller/Patient* advised to call facilities [place] Clinical Contact Center or seek immediate medical attention for new or worsening symptoms Nurse Summary Nurse Summary: Marleen calls today with c/o continued constipation, right flank pain, and abdomen pain. He's rating his pain at 5/10 taking Tylenol. He states, without Tylenol my pain is a 10/10. [place] been to the [place] walk in clinic on 12/16, on 12/23 and 12/26 was seen at the local ER for the same complaint. He has drank all the Golytely that was prescribed to him on 12/26 at the ER and still has not had a bowel movement. [place] is very uncomfortable. He was advised to seek ER care. He v/u. Will forward information. Clinical Contact Center Codes Clinic/Location: V15 PB PHONE [facility] RN Decision Support System Output: Triage Complete Triage Date: 12/30/2024, 10:34 AM Triage Note: Decision Support Tool Used: ClearTriage Protocol Used: Constipation Protocol-Based Disposition: See Provider within 4 Hours Positive Triage Questions: * [1] Rectal pain or fullness from fecal impaction (rectum full of stool) AND [2] NOT better after SITZ bath, suppository or enema * [1] Constant abdominal pain AND [2] present > 2 hours Care Advice Discussed: * Reasons To Call Back - You become worse IMPORTANT: This note was created by [facility] Contact [facility] staff. Please do not alert the staff member by adding them as a signer for future communications. Alerts are not monitored by this user. /shanita/ APRIL SEARS 15 TELEPHONE CARE NURSE Signed: 12/30/2024 10:36 Receipt Acknowledged By: 12/30/2024 11:17 /shanita/ Shavonne Biswas MD [facility] Primary Care * AWAITING SIGNATURE * TRINH FERRARO MACK[place] K [place] [facility]
--- OUTSIDE RECORDS SUMMARY | 2024-12-30 08:02 | XMS_ITS | Continuity of Care Document ---
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 It does not include entries that were removed or entered in error. Problem Status Onset Date Problem Type Date of Resolution Comments Source Lung cancer (SNOMED CT 10593107) Active 05/15/19 20 Condition May 01, 2020 Entered By: SHASTA GARDNER Comment: stage IIIa, poorly diferent. adenocarcnomaFeb 2020 Entered By: SHASTA GARDNER Comment: RUL [place] [facility] Abdominal wall pain Active Condition [place] [facility] Allergic Rhinitis (SCT 16812874) Active Condition [place] [facility] Angina Active Condition [place] [facility] Bladder cancer Active Condition [place] [facility] CAD - Coronary artery disease Active Condition Mar 15, 2021 Entered By: SHASTA GARDNER Comment: stress echo normal pr 2023 Entered By: SHASTA GARDNER Comment: LAD stent 2022 (total 3 stent) [place] [facility] Chronic neck pain Active Condition [place] [facility] Claudication Active Condition [facility] COPD - Chronic obstructive pulmonary disease Active Condition Jul 12 25 Entered By: SHASAT GARDNER Comment: stage 2 GOLD [place] [facility] Diabetic neuropathy Active Condition [facility] Dysphagia Active Condition [place] [facility] Epistaxis Active Condition [place] [facility] Erectile Dysfunction (SCT 334983352) Active Condition [place] [facility] Exposure to potentially hazardous substance Active Condition [facility] HTN - Hypertension (SNOMED CT 13262952) Active Condition [facility] Hyperlipidemia Active Condition [facility] Hypothyroidism Active Condition Jul 142021 Entered By: SHASTA GARDNER Comment: managed by women nurse [place] [facility] Peripheral arterial occlusive disease Active Condition May 01 Entered By: SHASTA GARDNER Comment: bilateral fem artery stents 04/15/2020Feb 17, 2021 Entered By: SHASTA GARDNER Comment: right LE thrombectomyMay 27, 2024 Entered By: SHASTA GARDNER Comment: Left percutaneous arthrectomy left SFA popliteal 05/01/24 [place] [facility] Polyp of colon Active Condition [place] [facility] Sleep Apnea (SCT 45969325) Active Condition Jun 02, 2021 Entered By: SHASTA GARDNER Comment: CPAP [place] [facility] Slow transit constipation Active Condition [place] [facility] Traumatic arteriovenous fistula Active Condition Aug 16, 2023 Entered By: SHASTA GARDNER Comment: right lower ext [place] [facility] Type 2 diabetes mellitus (SNOMED CT 28328887) Active Condition [facility] Abdominal Pain of the Left Lower Quadrant (ICD-9-CM 789.04) Inactive Condition 02/24/2016 [facility] [facility] Abdominal Pain of the Right Upper Quadrant (ICD-9-CM 789.01) Inactive Condition 02/24/2016 [facility] [facility] Acute bronchitis (ICD-9-CM 466.0) Inactive Condition 02/24/2016 [facility] [place] [facility] Diphtheria-TETANU S-Pertussis Combined (DPT)(DtaP) - Diphtheria-tetanu s-pertussis Inactive Condition 07/06/2020 [facility] Heart Murmurs * (ICD-9-CM 785.2) Inactive Condition 02/24/2016 [facility] [facility] Hematuria * (ICD-9-CM 599.7) Inactive Condition 02/24/2016 [facility] [place] [facility] Laboratory Examination Ordered as part of a Routine General Medical Examination Inactive Condition 02/24/2016 [facility] [facility] Malignant neoplasm of bladder (ICD-9-CM 188.9) Inactive Condition 05/31/2017 [facility] Multi vessel coronary artery disease Inactive Condition 02/24/2016 [facility] Obesity Inactive Condition 12/01/2020 [facility] [facility] Palpitations Inactive Condition 12/01/2020 [facility] Peripheral vascular disease Inactive Condition 07/30/2018 [facility] Routine General Medical Examination at a Health Care Facility * (ICD-9-CM V70.0) Inactive Condition 02/24/2016 [facility] Screening for Thyroid Disorders Inactive Condition 02/24/2016 [facility] VACCIN FOR INFLUENZA - Need for prophylactic vaccination and inoculation, influe Inactive Condition 02/24/2016 [facility] Diagnosis: ICD-10-CM M54.50 Low back pain, unspecified Active Diagnosis [facility] Diagnosis: ICD-10-CM R10.31 Right lower quadrant pain Active Diagnosis [facility] Diagnosis: ICD-10-CM E11.9 Type 2 diabetes mellitus without complications Active Diagnosis [facility] Diagnosis: ICD-10-CM I25.10 Athscl heart disease of [place] coronary artery w/o ang pctrs Active Diagnosis [facility] Diagnosis: ICD-10-CM Z23 Encounter for immunization Active Diagnosis [facility] Diagnosis: ICD-10-CM G47.30 Sleep apnea, unspecified Active Diagnosis [facility] Medications Combined list of outpatient medications from [...] . RESPIR ATORY (INHAL ATION) ACTIVE 08/06/2025 [id number] ANGEL RODAS AN I 2024 3 [facility] ASPIRIN 81MG TAB,EC TAKE ONE TABLET BY MOUTH ONCE A DAY FOR HEART OR CIRCULAT ION. TAKE WITH FOOD. ORAL ACTIVE 02/13/2025 [id number] 5 DONTA GARDNERMY 2023 120 [facility] ASPIRIN 81MG TAB,EC TAKE ONE TABLET BY MOUTH ONCE A DAY FOR HEART OR CIRCULAT ION. TAKE WITH FOOD. ORAL DISCONT INUED 10/20/2023 [id number] 4 NEELAM BALL 2022 120 [facility] ATORVASTATI N CA 80MG TAB TAKE ONE-HALF TABLET BY MOUTH EVERY EVENING ORAL ACTIVE 07/11/2025 [id number] 5 KENDRA, SHASTA 2024 45 [facility] ATORVASTATI N CA 80MG TAB TAKE ONE-HALF TABLET BY MOUTH EVERY EVENING ORAL DISCONT INUED 04/27/2024 [id number] 4 KENDRA, SHASTA 2023 45 [facility] CETIRIZINE HCL 10MG TAB TAKE ONE TABLET BY MOUTH ONCE A DAY FOR ALLERGY SYMPTOMS . ORAL ACTIVE 09/12/2025 [id number] 5 KENDRA, SHASTA 2024 90 [facility] CETIRIZINE HCL 10MG TAB TAKE ONE TABLET BY MOUTH ONCE A DAY FOR ALLERGY SYMPTOMS . ORAL DISCONT INUED 08/23/2024 [id number] 5 KENDRA, SHASTA 2023 90 [facility] CHOLECALCIF VIKTORIA 25MCG (1,000UNIT) TAB TAKE ONE TABLET BY MOUTH ONCE A DAY FOR VITAMIN D DEFICIEN CY. ORAL ACTIVE 07/24/2025 [id number] 5 KENDRA, SHASTA 2024 100 [facility] CHOLECALCIF VIKTORIA 25MCG (1,000UNIT) TAB TAKE ONE TABLET BY MOUTH ONCE A DAY FOR VITAMIN D DEFICIEN CY. ORAL DISCONT INUED 04/27/2024 [id number] 4 KENDRA, SHASTA 2023 100 [facility] CILOSTAZOL 100MG TAB TAKE ONE TABLET BY MOUTH TWICE A DAY TAKE 30 MINUTES BEFORE OR AT LEAST 2 HOURS AFTER FOOD. DO NOT TAKE WITH GRAPEFRU IT JUICE. ORAL ACTIVE 09/18/2025 [id number] 5 KENDRA, SHASTA 2024 60 [place] [facility] CILOSTAZOL 100MG TAB TAKE ONE TABLET BY MOUTH TWICE A DAY TAKE 30 MINUTES BEFORE OR AT LEAST 2 HOURS AFTER FOOD. DO NOT TAKE WITH GRAPEFRU IT JUICE. ORAL DISCONT INUED 01/01/2025 [id number] 5 [facility] 2023 60 [facility] CILOSTAZOL 100MG TAB TAKE ONE TABLET BY MOUTH TWICE A DAY TAKE 30 MINUTES BEFORE OR AT LEAST 2 HOURS AFTER FOOD. DO NOT TAKE WITH GRAPEFRU IT JUICE. ORAL DISCONT INUED 05/17/2024 [id number] 4 [facility] 2023 60 [facility] CLOPIDOGREL BISULFATE 75MG TAB TAKE ONE TABLET BY MOUTH ONCE A DAY ORAL ACTIVE 03/08/2025 [id number] RADHA BLAKE 2023 90 [facility] [facility] DOXYCYCLINE HYCLATE 100MG TAB TAKE ONE TABLET BY MOUTH TWICE A DAY TAKE UNTIL FINISHED . AVOID SUN EXPOSURE WHILE TAKING. ORAL DISCONT INUED 11/11/2023 [id number] DATARFRANCOIS 2023 10 [place] [facility] EMPAGLIFLOZ IN 25MG TAB TAKE ONE TABLET BY MOUTH ONCE A DAY FOR DIABETES ORAL DISCONT INUED BY PROVIDE R 09/29/2024 [id number] 4 [facility] 2023 90 [facility] FLUTICASONE PROPIONATE 50MCG/SPRAY SOLN,NASAL, 16GM INSTILL 2 SPRAYS IN NOSTRIL( S) ONCE A DAY FOR CHRONIC RHINOSIN USITIS (MUST BE USED DIRECTED FOR MINIMUM OF 21 DAYS TO PROVIDE ADEQUATE BENEFITS ) NASAL ACTIVE 01/01/2025 [id number] 4 [facility] 2023 3 [facility] GABAPENTIN 100MG CAP TAKE ONE CAPSULE BY MOUTH THREE TIMES A DAY ORAL 12/11/2024 [id number] 5 Wally [place] US[facility] 2023 270 [place] [facility] GUAIFENESIN 600MG TAB,SA TAKE ONE TABLET BY MOUTH THREE TIMES PER WEEK FOR MUCUS THINNING TAKE WITH 8 OUNCE GLASS OF WATER. ORAL ACTIVE 02/06/2025 [id number] 5 [facility] 2023 40 [facility] GUAIFENESIN 600MG TAB,SA TAKE ONE TABLET BY MOUTH THREE TIMES PER WEEK FOR MUCUS THINNING TAKE WITH 8 OUNCE GLASS OF WATER. ORAL DISCONT INUED 11/25/2023 [id number] DATARFRANCOIS 2022 40 [place] [facility] HYDROCORTIS ONE 2.5% CREAM,TOP APPLY SPARINGL Y TO AFFECTED AREA(S) FOUR TIMES A DAY FOR ITCHING FOR EXTERNAL USE ONLY. APPLY SPARINGL Y. TOPICA L 11/08/2023 [id number] 4 [facility] 2022 30 [facility] INSULIN SYRINGE 0.5ML 31G 8MM USE SYRINGE UNDER THE SKIN ONCE A DAY FOR INSULIN INJECTIO N SUBCUT ANEOUS ACTIVE 06/06/2025 [id number] 5 [facility] 2024 100 [facility] INSULIN SYRINGE 0.5ML 31G 8MM USE SYRINGE UNDER THE SKIN ONCE A DAY FOR INSULIN INJECTIO N SUBCUT ANEOUS DISCONT INUED 05/17/2024 [id number] 4 [facility] 2023 100 [facility] INSULIN,ASP ART,HUMAN (EQV-NOVOLO G) 100 UNIT/ML,FLE XPEN,3ML INJECT 20 UNITS UNDER THE SKIN THREE TIMES A DAY BEFORE MEALS ADMINIST ER 10 MINUTES BEFORE FOOD DIRECTED . REFRIGER ATE UN-OPENE D PENS. DISCARD CARTRIDG E 28 DAYS AFTER OPENING. SUBCUT ANEOUS ACTIVE 09/26/2025 [id number] 5 KAREEM GARVEY RUI 2024 5 [facility] [facility] INSULIN,ASP ART,HUMAN (EQV-NOVOLO G) 100 UNIT/ML,FLE XPEN,3ML INJECT 20 UNITS UNDER THE SKIN THREE TIMES A DAY BEFORE MEALS ADMINIST ER 10 MINUTES BEFORE FOOD DIRECTED . REFRIGER ATE UN-OPENE D PENS. DISCARD CARTRIDG E 28 DAYS AFTER OPENING. SUBCUT ANEOUS DISCONT INUED 09/12/2024 [id number] 4 KAREEM GARVEY RUI 2023 20 [facility] [facility] INSULIN,GLA RGINE,HUMAN 100 UNT/ML INJ INJECT 40 UNITS UNDER THE SKIN ONCE A DAY TO CONTROL BLOOD SUGAR. ADMINIST ER AT SAME TIME EACH DAY DIRECTED . DISCARD ANY VIAL 28 DAYS AFTER OPENING. SUBCUT ANEOUS ACTIVE 06/26/2025 [id number] 5 [facility] SHASTA 2024 4 [facility] INSULIN,GLA RGINE,HUMAN 100 UNT/ML INJ INJECT 40 UNITS UNDER THE SKIN ONCE A DAY TO CONTROL BLOOD SUGAR. ADMINIST ER AT SAME TIME EACH DAY DIRECTED . DISCARD ANY VIAL 28 DAYS AFTER OPENING. SUBCUT ANEOUS DISCONT INUED 06/06/2024 [id number] 4 JAX BERGER R 2023 4 [facility] ISOSORBIDE MONONITRATE 60MG TAB,SA TAKE ONE AND ONE-HALF TABLETS BY MOUTH ONCE A DAY AT 8AM TO PREVENT CHEST PAIN. TAKE ON EMPTY STOMACH. SWALLOW WHOLE. DO NOT CRUSHOR CHEW. ORAL ACTIVE 05/14/2025 [id number] 5 [facility], SHASTA 2024 135 [facility] ISOSORBIDE MONONITRATE 60MG TAB,SA TAKE ONE AND ONE-HALF TABLETS BY MOUTH ONCE A DAY AT 8AM TO PREVENT CHEST PAIN. TAKE ON EMPTY STOMACH. SWALLOW WHOLE. DO NOT CRUSHOR CHEW. ORAL DISCONT INUED 08/01/2024 [id number] 4 [facility] SHASTA 2023 135 [facility] LEVOTHYROXI NE NA 175MCG TAB TAKE ONE TABLET BY MOUTH EVERY MORNING BEFORE A MEAL FOR HYPOTHYR OIDISM TAKE 30 MINUTES BEFORE FOOD. TAKE SEPARATE LY FROM ALL OTHER MEDICATI ONS. ORAL ACTIVE 03/17/2025 [id number] 5 KENDRA, SHASTA 2024 90 [facility] LEVOTHYROXI NE NA 175MCG TAB TAKE ONE TABLET BY MOUTH EVERY MORNING BEFORE A MEAL FOR HYPOTHYR OIDISM TAKE 30 MINUTES BEFORE FOOD. TAKE SEPARATE LY FROM ALL OTHER MEDICATI ONS. ORAL DISCONT INUED 12/16/2024 [id number] 5 [facility] [address] [place] [address] [facility] LEVOTHYROXI NE NA 175MCG TAB TAKE ONE TABLET BY MOUTH EVERY MORNING BEFORE A MEAL FOR HYPOTHYR OIDISM TAKE 30 MINUTES BEFORE FOOD. TAKE SEPARATE LY FROM ALL OTHER MEDICATI ONS. ORAL DISCONT INUED 09/15/2024 [id number] 5 [facility], SHASTA [address] [place] [address] [facility] LEVOTHYROXI NE NA 175MCG TAB TAKE ONE TABLET BY MOUTH EVERY MORNING BEFORE A MEAL FOR HYPOTHYR OIDISM TAKE 30 MINUTES BEFORE FOOD. TAKE SEPARATE LY FROM ALL OTHER MEDICATI ONS. ORAL DISCONT INUED 06/10/2024 [id number] 4 [facility] [address] [place] [address] [facility] LEVOTHYROXI NE NA 175MCG TAB (SYNTHROID) TAKE ONE TABLET BY MOUTH EVERY MORNING BEFORE A MEAL FOR HYPOTHYR OIDISM TAKE 30 MINUTES BEFORE FOOD. TAKE SEPARATE LY FROM ALL OTHER MEDICATI ONS. ORAL DISCONT INUED 03/04/2024 [id number] 4 [facility] [address] [place] [address] [facility] LIDOCAINE 5% OINT,TOP APPLY LIGHTLY TO AFFECTED AREA(S) TWICE A DAY FOR PAIN TOPICA L 06/10/2024 [id number] [facility] [address] [place] [address] [facility] LOSARTAN 50MG TAB TAKE ONE AND ONE-HALF TABLETS BY MOUTH ONCE A DAY ORAL ACTIVE 11/08/2025 [id number] 5 [facility] 2024 135 [place] [facility] LOSARTAN 50MG TAB TAKE ONE AND ONE-HALF TABLETS BY MOUTH ONCE A DAY ORAL DISCONT INUED 09/07/2024 [id number] 5 [place] 2023 135 [place] [facility] METFORMIN HCL 500MG 24HR TAB,SA TAKE ONE TABLET BY MOUTH TWICE A DAY TAKE WITH FOOD. AVOID ALCOHOL. DISCONTI NUE BEFORE GETTING XRAY DYE. ORAL ACTIVE 10/16/2025 [id number] 5 KAREEM GARVEY RUI 2024 180 [place] [facility] METFORMIN HCL 500MG 24HR TAB,SA TAKE ONE TABLET BY MOUTH TWICE A DAY TAKE WITH FOOD. AVOID ALCOHOL. DISCONTI NUE BEFORE GETTING XRAY DYE. ORAL DISCONT INUED 06/08/2025 [id number] 5 KAREEM GARVEY RUI 2024 180 [place] [facility] METFORMIN HCL 850MG TAB TAKE ONE TABLET BY MOUTH TWICE A DAY FOR BLOOD SUGAR CONTROL. TAKE WITH FOOD. AVOID ALCOHOL. DISCONTI NUE BEFORE GETTING XRAY DYE. ORAL 12/05/2024 [id number] 4 KENDRA, SHASTA 2023 180 [facility] MOMETASONE FUROATE 100MCG/ACTU AT INHL,ORAL,1 20D,13GM INHALE 1 PUFF ORAL INHALATI ON TWICE A DAY SHAKE WELL. RINSE MOUTH OUT WITH WATER AND SPIT AFTER EACH DOSE. CLEAN MOUTHPIE CE WITH DRY WIPE AFTER EVERY 7 DAYS OF USE. RESPIR ATORY (INHAL ATION) DISCONT INUED 12/11/2023 [id number] 4 ROGERIORFRANCOIS 2023 1 [place] [facility] MOMETASONE FUROATE 100MCG/ACTU AT INHL,ORAL,1 20D,13GM INHALE 1 PUFF ORAL INHALATI ON TWICE A DAY SHAKE WELL. RINSE MOUTH OUT WITH WATER AND SPIT AFTER EACH DOSE. CLEAN MOUTHPIE CE WITH DRY WIPE AFTER EVERY 7 DAYS OF USE. RESPIR ATORY (INHAL ATION) 04/06/2024 [id number] 4 KENDRA, SHASTA 2023 1 [facility] MULTIVITAMI NS CAP/TAB TAKE 1 TABLET BY MOUTH ONCE A DAY FOR SUPPLEME NTATION. ORAL ACTIVE 06/12/2025 [id number] 5 KENDRA, SHASTA 2024 100 [facility] MULTIVITAMI NS CAP/TAB TAKE 1 TABLET BY MOUTH ONCE A DAY FOR SUPPLEME NTATION. ORAL DISCONT INUED 04/27/2024 [id number] 4 KENDRASHASTA GARCIA 2022 100 [facility] OLODATEROL 2.5MCG/TIOT ROPIUM 2.5MCG/ACTU AT INHL,ORAL,6 0D,4GM INHALE 2 PUFFS BY ORAL INHALATI ON ONCE A DAY FOR 90 DAYS ADMINIST ER AT SAME TIME EACH DAY RESPIR ATORY (INHAL ATION) ACTIVE 08/06/2025 [id number] 5 ANGEL RODAS I 2024 3 [place] [facility] OLODATEROL 2.5MCG/TIOT ROPIUM 2.5MCG/ACTU AT INHL,ORAL,6 0D,4GM INHALE 2 PUFFS ORAL INHALATI ON ONCE A DAY ADMINIST ER AT SAME TIME EACH DAY RESPIR ATORY (INHAL ATION) DISCONT INUED 02/14/2025 [id number] 4 SHASTA GARDNER 2023 3 [facility] OLODATEROL 2.5MCG/TIOT ROPIUM 2.5MCG/ACTU AT INHL,ORAL,6 0D,4GM INHALE 2 PUFFS ORAL INHALATI ON ONCE A DAY ADMINIST ER AT SAME TIME EACH DAY RESPIR ATORY (INHAL ATION) DISCONT INUED 10/12/2024 [id number] 4 ROGERIORFRANCOIS 2023 1 [place] [facility] POLYETHYLEN E GLYCOL 3350 PWDR,ORAL MIX AND DRINK 2 CAPFULS BY MOUTH ONCE A DAY FOR CONSTIPA TION (MEASURE WITH CAP AND MIX IN 8 OZ OF WATER) ORAL ACTIVE 12/17/2025 [id number] 5 KYLE CONNOLLY G 2024 3060 [facility] POLYETHYLEN E GLYCOL 3350 PWDR,ORAL MIX AND DRINK 1 CAPFUL BY MOUTH ONCE A DAY TO PREVENT CONSTIPA TION. (MEASURE WITH CAP AND MIX IN 8 OZ OF WATER) ORAL DISCONT INUED 02/12/2025 [id number] 5 JAX BERGER R 2023 510 [facility] POLYETHYLEN E GLYCOL 3350 PWDR,ORAL MIX AND DRINK 1 CAPFUL BY MOUTH ONCE A DAY TO PREVENT CONSTIPA TION. (MEASURE WITH CAP AND MIX IN 8 OZ OF WATER) ORAL DISCONT INUED 02/01/2024 [id number] 4 BERGERHI LLIAM R 2022 510 [facility] PREDNISONE 10MG TAB TAKE TWO TABLETS BY MOUTH ONCE A DAY FOR 3 DAYS, THEN TAKE ONE TABLET ONCE A DAY FOR 5 DAYS TAKE WITH FOOD OR MILK. ORAL 11/11/2023 [id number] 4 DATARFRANCOIS 2023 11 [facility] Immunizations Combined list of available immunizations from the Department of Defense and Veterans Affairs facilities. Immunization Series Date Given Administered By Site Reaction Lot Number CVX Code Drug Tester Electronic Scale Status Comments Source INFLUENZA, HIGH-DOSE, TRIVALENT, PF 2023 MELANI CHANG R LEFT GLUTE US MEDIU S [id number] 135 complet ed [facility] INFLUENZA, HIGH-DOSE, QUADRIVALENT 2022 ROD RAMSEY D LEFT DELTO ID [id number] 197 complet ed [facility] COVID-19, MRNA, LNP-S, BIVALENT BOOSTER, PF, 50 MCG/0.5 ML OR 25MCG/0.25 ML DOSE 1 2021 229 complet ed MOD; [id number]; 3 [facility] INFLUENZA, INJECTABLE, QUADRIVALENT, PRESERVATIVE FREE 2021 150 complet ed [facility] INFLUENZA, INJECTABLE, QUADRIVALENT, PRESERVATIVE FREE 2020 150 complet ed [facility] COVID-19 (KRISTINE), VECTOR-NR, [id number], PF, 0.5 ML 1 2020 212 complet ed JSN; [id number]; 1 [facility] INFLUENZA, INJECTABLE, QUADRIVALENT, PRESERVATIVE FREE 2019 150 complet ed [facility] INFLUENZA, INJECTABLE, QUADRIVALENT, PRESERVATIVE FREE 2018 150 complet ed [place] [facility] TDAP 2018 115 complet ed [place] [facility] INFLUENZA, INJECTABLE, QUADRIVALENT, PRESERVATIVE FREE 2018 150 complet ed [place] [facility] ZOSTER RECOMBINANT 2 2018 187 complet ed [facility] ZOSTER RECOMBINANT 1 2017 187 complet ed [facility] INFLUENZA, SEASONAL, INJECTABLE, PRESERVATIVE FREE 2017 140 complet ed Right Deltoid [facility] INFLUENZA, SEASONAL, INJECTABLE, PRESERVATIVE FREE 2015 140 complet ed [facility] PNEUMOCOCCAL POLYSACCHARID E PPV23 2015 33 complet ed [facility] INFLUENZA, SEASONAL, INJECTABLE, PRESERVATIVE FREE 2014 140 complet ed [facility] PNEUMOCOCCAL CONJUGATE PCV 13 2014 133 complet ed [facility] ZOSTER LIVE 2014 121 complet ed [place] [facility] INFLUENZA, UNSPECIFIED FORMULATION 2013 88 complet ed [facility] INFLUENZA, UNSPECIFIED FORMULATION 2012 88 complet ed [facility] INFLUENZA, UNSPECIFIED FORMULATION 2010 88 complet ed [facility] INFLUENZA, UNSPECIFIED FORMULATION 2010 88 complet ed [facility] OUTSIDE PNEUMOVAX (HISTORICAL) 2007 109 complet ed [facility] Results Combined list of recent [...] 2024 10:42 AM Reporting Lab: [place] [facility] [address] [place] [id number] Performin g Lab: [place] [facility] [address] [place] [id number] [place] [facility] URINE ALBUMIN PROFILE-ih (PB) ALBUMIN [MASS/VOLUM E] IN URINE 12.63 mg/L 12/16 Specimen Type: URINE No comment entered. Ordering Provider: SHASTA GARDNER Report Released Date/Time : Jan 01, 2024 10:42 AM Reporting Lab: [place] [facility] [address] [place] [id number] Performin g Lab: [place] [facility] [address] [place] [phone] [facility] URINE ALBUMIN PROFILE-ih (PB) ALBUMIN/CRE ATININE [MASS RATIO] IN URINE 18.42 mg/g 0 - 30 12/16 Specimen Type: URINE No comment entered. Ordering Provider: SHASTA GARDNER Report Released Date/Time : Jan 01, 2024 10:42 AM Reporting Lab: [place] [facility] [address] [place] [address] Performin g Lab: [place] [facility] [address] [place] [id number] [facility] URINE ALBUMIN PROFILE-ih (PB) CREATININE [MASS/VOLUM E] IN URINE 68.56 mg/dL 12/16 Specimen Type: URINE No comment entered. Ordering Provider: SHASTA GARDNER Report Released Date/Time : Jan 01, 2024 10:42 AM Reporting Lab: [place] [facility] [address] [place] [address] Performin g Lab[facility] [place] [facility] [address] [place] [id number] [facility] TSH ([place]-PB) THYROTROPIN [UNITS/VOLU ME] IN SERUM OR PLASMA 0.142 u[IU]/mL 0.47 - 5 12/16 L Specimen Type: SERUM No comment entered. Ordering Provider: SHASTA GARDNER Report Released Date/Time : Jan 01, 2024 10:42 AM Reporting Lab: [place] [facility] [address] [place] [address] Performin g Lab: [place] [facility] [address] [place] [address] [facility]) THYROXINE (T4) FREE [MASS/VOLUM E] IN SERUM OR PLASMA 1.33 ng/dL 0.7 - 1.48 12/16 Specimen Type: SERUM No comment entered. Ordering Provider: SHASTA GARDNER Report Released Date/Time : Jan 01, 2024 10:42 AM Reporting Lab: [place] [facility] [address] [place] [address] Performin g Lab: [place] [facility] [address] [place] [address] [facility] CHOLESTERO L PANEL (PB) CHOLESTEROL [MASS/VOLUM E] IN SERUM OR PLASMA 91 mg/dL 0 - 200 12/16 Specimen Type: PLASMA No comment entered. Ordering Provider: SHASTA GARDNER Report Released Date/Time : Jan 01, 2024 10:42 AM Reporting Lab: [place] [facility] [address] [place] [address] Performin g Lab: [place] [facility] [address] [place] [id number] [facility] CHOLESTERO L PANEL (PB) TRIGLYCERID E [MASS/VOLUM E] IN SERUM OR PLASMA 67 mg/dL 0 - 150 12/16 Specimen Type: PLASMA No comment entered. Ordering Provider: SHASTA GARDNER Report Released Date/Time : Jan 01, 2024 10:42 AM Reporting Lab: [place] [facility] [address] [place] [id number] Performin g Lab: [place] [facility] [address] [place] [id number] [facility] CHOLESTERO L PANEL (PB) CHOLESTEROL IN LDL [MASS/VOLUM E] IN SERUM OR PLASMA BY CALCULATION 37.6 mg/dL 12/16 Specimen Type: PLASMA No comment entered. Ordering Provider: SHASTA GARDNER Report Released Date/Time : Jan 01, 2024 10:42 AM Reporting Lab: [place] [facility] [address] [place] [address] Performin g Lab: [place] [facility] [address] [place] [address] 8 [facility] CHOLESTERO L PANEL (PB) CHOLESTEROL IN HDL [MASS/VOLUM E] IN SERUM OR PLASMA 40.0 mg/dL 40 12/16 H Specimen Type: PLASMA No comment entered. Ordering Provider: SHASTA GARDNER Report Released Date/Time : Jan 01, 2024 10:42 AM Reporting Lab: [place] [facility] [address] [place] [address] Performin g Lab: [place] [facility] [address] [place] [address] 8 [facility] CHOLESTERO L PANEL (PB) CHOLESTEROL IN HDL/CHOLEST VIKTORIA.TOTAL [MASS RATIO] IN SERUM OR PLASMA 44.0 25 12/16 Specimen Type: PLASMA No comment entered. Ordering Provider: SHASTA GARDNER Report Released Date/Time : Jan 01, 2024 10:42 AM Reporting Lab: [place] [facility] [address] [place] [address] 8 Performin g Lab: [place] [facility] [address] [place] [address] [facility] COMPREHENS BALDOMERO METABOLIC PANEL CREATININE [MASS/VOLUM E] IN SERUM OR PLASMA 0.61 mg/dL 0.7 - 1.3 12/16 L Specimen Type: PLASMA No comment entered. Ordering Provider: SHASTA GARDNER Report Released Date/Time : Jan 01, 2024 10:42 AM Reporting Lab: [place] [facility] [address] [place] [address] 8 Performin g Lab: [place] [facility] [address] [place] [address] 8 [facility] COMPREHENS BALDOMERO METABOLIC PANEL UREA NITROGEN [MASS/VOLUM E] IN SERUM OR PLASMA 9 mg/dL 9 - 25 12/16 Specimen Type: PLASMA No comment entered. Ordering Provider: SHASTA GARDNER Report Released Date/Time : Jan 01, 2024 10:42 AM Reporting Lab: [place] [facility] [address] [place] [address] 8 Performin g Lab: [place] [facility] [address] [place] [address] 8 [facility] COMPREHENS BALDOMERO METABOLIC PANEL GLUCOSE [MASS/VOLUM E] IN SERUM OR PLASMA 159 mg/dL 72 - 99 12/16 H Specimen Type: PLASMA No comment entered. Ordering Provider: SHASTA GARDNER Report Released Date/Time : Jan 01, 2024 10:42 AM Reporting Lab: [place] [facility] [address] [place] [address] 8 Performin g Lab: [place] [facility] [address] [place] [address] 8 [facility] COMPREHENS BALDOMERO METABOLIC PANEL SODIUM [MOLES/VOLU ME] IN SERUM OR PLASMA 139 meq/L 136 - 145 12/16 Specimen Type: PLASMA No comment entered. Ordering Provider: SHASTA GARDNER Report Released Date/Time : Jan 01, 2024 10:42 AM Reporting Lab: [place] [facility] [address] [place] [address] 8 Performin g Lab: [place] [facility] [address] [place] [address] [facility] COMPREHENS BALDOMERO METABOLIC PANEL POTASSIUM [MOLES/VOLU ME] IN SERUM OR PLASMA 4.6 meq/L 3.5 - 5 12/16 Specimen Type: PLASMA No comment entered. Ordering Provider: SHASTA GARDNER Report Released Date/Time : Jan 01, 2024 10:42 AM Reporting Lab: [place] [facility] [address] [place] [address] 8 Performin g Lab: [place] [facility] [address] [place] [address] 8 [facility] COMPREHENS BALDOMERO METABOLIC PANEL CHLORIDE [MOLES/VOLU ME] IN SERUM OR PLASMA 102 meq/L 98 - 107 12/16 Specimen Type: PLASMA No comment entered. Ordering Provider: SHASTA GARDNER Report Released Date/Time : Jan 01, 2024 10:42 AM Reporting Lab: [place] [facility] [address] [place] [address] 8 Performin g Lab: [place] [facility] [address] [place] [address] 8 [facility] COMPREHENS BALDOMERO METABOLIC PANEL CARBON DIOXIDE, TOTAL [MOLES/VOLU ME] IN SERUM OR PLASMA 28 meq/L 22 - 31 12/16 Specimen Type: PLASMA No comment entered. Ordering Provider: SHASTA GARDNER Report Released Date/Time : Jan 01, 2024 10:42 AM Reporting Lab: [place] [facility] [address] [place] [address] 8 Performin g Lab: [place] [facility] [address] [place] [address] 8 [facility] COMPREHENS BALDOMERO METABOLIC PANEL CALCIUM [MASS/VOLUM E] IN SERUM OR PLASMA 9.3 mg/dL 8.4 - 10.4 12/16 Specimen Type: PLASMA No comment entered. Ordering Provider: SHASTA GARDNER Report Released Date/Time : Jan 01, 2024 10:42 AM Reporting Lab: [place] [facility] [address] [place] [address] 8 Performin g Lab: [place] [facility] [address] [place] [address] 8 [facility] COMPREHENS BALDOMERO METABOLIC PANEL PROTEIN [MASS/VOLUM E] IN SERUM OR PLASMA 7.2 g/dL 6 - 8.6 12/16 Specimen Type: PLASMA No comment entered. Ordering Provider: SHASTA GARDNER Report Released Date/Time : Jan 01, 2024 10:42 AM Reporting Lab: [place] [facility] [address] [place] [address] 8 Performin g Lab: [place] [facility] [address] [place] [address] 8 [facility] COMPREHENS BALDOMERO METABOLIC PANEL ALBUMIN [MASS/VOLUM E] IN SERUM OR PLASMA 4.5 g/dL 3.4 - 5 12/16 Specimen Type: PLASMA No comment entered. Ordering Provider: SHASTA GARDNER Report Released Date/Time : Jan 01, 2024 10:42 AM Reporting Lab: [place] [facility] [address] [place] [address] 8 Performin g Lab: [place] [facility] [address] [place] [address] 8 [facility] COMPREHENS BALDOMERO METABOLIC PANEL BILIRUBIN.T OTAL [MASS/VOLUM E] IN SERUM OR PLASMA 0.2 mg/dL 0.2 - 1.2 12/16 Specimen Type: PLASMA No comment entered. Ordering Provider: SHASTA GARDNER Report Released Date/Time : Jan 01, 2024 10:42 AM Reporting Lab: [place] [facility] [address] [place] [address] 8 Performin g Lab: [place] [facility] [address] [place] [address] 8 [facility] COMPREHENS BALDOMERO METABOLIC PANEL ALKALINE PHOSPHATASE [ENZYMATIC ACTIVITY/VO LUME] IN SERUM OR PLASMA 69 U/L 40 - 150 12/16 Specimen Type: PLASMA No comment entered. Ordering Provider: SHASTA GARDNER Report Released Date/Time : Jan 01, 2024 10:42 AM Reporting Lab: [place] [facility] [address] [place] [address] 8 Performin g Lab: [place] [facility] [address] [place] [address] 8 [facility] COMPREHENS BALDOMERO METABOLIC PANEL ASPARTATE AMINOTRANSF ERASE [ENZYMATIC ACTIVITY/VO LUME] IN SERUM OR PLASMA 16 U/L 5 - 34 12/16 Specimen Type: PLASMA No comment entered. Ordering Provider: SHASTA GARDNER Report Released Date/Time : Jan 01, 2024 10:42 AM Reporting Lab: [place] [facility] [address] [place] [address] 8 Performin g Lab: [place] [facility] [address] [place] [address] 8 [facility] COMPREHENS BALDOMERO METABOLIC PANEL ALANINE AMINOTRANSF ERASE [ENZYMATIC ACTIVITY/VO LUME] IN SERUM OR PLASMA 12 U/L 8 - 40 12/16 Specimen Type: PLASMA No comment entered. Ordering Provider: SHASTA GARDNER Report Released Date/Time : Jan 01, 2024 10:42 AM Reporting Lab: [place] [facility] [address] [place] [address] 8 Performin g Lab: [place] [facility] [address] [place] [address] 8 [facility] COMPREHENS BALDOMERO METABOLIC PANEL GLOMERULAR FILTRATION RATE/1.73 SQ M.PREDICTED [VOLUME RATE/AREA] IN SERUM, PLASMA OR BLOOD BY CREATININE- BASED FORMULA (CKD-EPI 2020) 97 12/16 Specimen Type: PLASMA No comment entered. Ordering Provider: SHASTA GARDNER Report Released Date/Time : Jan 01, 2024 10:42 AM Reporting Lab: [place] [facility] [address] [place] [address] 8 Performin g Lab: [place] [facility] [address] [place] [address] 8 [facility] CBC LEUKOCYTES [#/VOLUME] IN BLOOD BY AUTOMATED COUNT 8.5 10*3/uL 3.6 - 11.2 12/16 Specimen Type: BLOOD No comment entered. Ordering Provider: SHASTA GARDNER Report Released Date/Time : Jan 01, 2024 10:42 AM Reporting Lab: [place] [facility] [address] [place] [address] 8 Performin g Lab: [place] [facility] [address] [place] [address] 8 [facility] CBC ERYTHROCYTE S [#/VOLUME] IN BLOOD BY AUTOMATED COUNT 4.39 10*6/uL 4.10 - 5.70 12/16 Specimen Type: BLOOD No comment entered. Ordering Provider: SHASTA GARDNER Report Released Date/Time : Jan 01, 2024 10:42 AM Reporting Lab: [place] [facility] [address] [place] [address] 8 Performin g Lab: [place] [facility] [address] [place] [address] 8 [facility] CBC HEMOGLOBIN [MASS/VOLUM E] IN BLOOD 13.2 g/dL 13.1 - 16.8 12/16 Specimen Type: BLOOD No comment entered. Ordering Provider: SHASTA GARDNER Report Released Date/Time : Jan 01, 2024 10:42 AM Reporting Lab: [place] [facility] [address] [place] [address] 8 Performin g Lab: [place] [facility] [address] [place] [address] [facility] CBC HEMATOCRIT [VOLUME FRACTION] OF BLOOD 39.9 38.2 - 48.4 12/16 Specimen Type: BLOOD No comment entered. Ordering Provider: SHASTA GARDNER Report Released Date/Time : Jan 01, 2024 10:42 AM Reporting Lab: [place] [facility] [address] [place] [address] 8 Performin g Lab: [place] [facility] [address] [place] [address] 8 [facility] CBC MCV [ENTITIC VOLUME] BY AUTOMATED COUNT 90.9 fL 80.0 - 100.0 12/16 Specimen Type: BLOOD No comment entered. Ordering Provider: SHASTA GARDNER Report Released Date/Time : Jan 01, 2024 10:42 AM Reporting Lab: [place] [facility] [address] [place] [address] 8 Performin g Lab: [place] [facility] [address] [place] [address] 8 [facility] CBC MCH [ENTITIC MASS] BY AUTOMATED COUNT 30.1 pg 27.0 - 34.0 12/16 Specimen Type: BLOOD No comment entered. Ordering Provider: SHASTA GARDNER Report Released Date/Time : Jan 01, 2024 10:42 AM Reporting Lab: [place] [facility] [address] [place] [address] 8 Performin g Lab: [place] [facility] [address] [place] [address] 8 [facility] CBC MCHC [MASS/VOLUM E] BY AUTOMATED COUNT 33.1 g/dL 33.0 - 36.0 12/16 Specimen Type: BLOOD No comment entered. Ordering Provider: SHASTA GARDNER Report Released Date/Time : Jan 01, 2024 10:42 AM Reporting Lab: [place] [facility] [address] [place] [address] 8 Performin g Lab: [place] [facility] [address] [place] [address] 8 [facility] CBC PLATELETS [#/VOLUME] IN BLOOD BY AUTOMATED COUNT 329 10*3/uL 150 - 400 12/16 Specimen Type: BLOOD No comment entered. Ordering Provider: SHASTA GARDNER Report Released Date/Time : Jan 01, 2024 10:42 AM Reporting Lab: [place] [facility] [address] [place] [address] 8 Performin g Lab: [place] [facility] [address] [place] [address] 8 [facility] CBC PLATELET MEAN VOLUME [ENTITIC VOLUME] IN BLOOD BY AUTOMATED COUNT 9.0 fL 7.5 - 11.2 12/16 Specimen Type: BLOOD No comment entered. Ordering Provider: SHASTA GARDNER Report Released Date/Time : Jan 01, 2024 10:42 AM Reporting Lab: [place] [facility] [address] [place] [address] 8 Performin g Lab: [place] [facility] [address] [place] [address] 8 [facility] CBC ERYTHROCYTE DISTRIBUTIO N WIDTH [RATIO] BY AUTOMATED COUNT 13.7 11.8 - 15.1 12/16 Specimen Type: BLOOD No comment entered. Ordering Provider: SHASTA GARDNER Report Released Date/Time : Jan 01, 2024 10:42 AM Reporting Lab: [place] [facility] [address] [place] [address] 8 Performin g Lab: [place] [facility] [address] [place] [address] 8 [facility] CBC LYMPHOCYTES /100 LEUKOCYTES IN BLOOD BY AUTOMATED COUNT 14.6 12/16 Specimen Type: BLOOD No comment entered. Ordering Provider: SHASTA GARDNER Report Released Date/Time : Jan 01, 2024 10:42 AM Reporting Lab: [place] [facility] [address] [place] [address] 8 Performin g Lab: [place] [facility] [address] [place] [address] 8 [facility] CBC MONOCYTES/1 00 LEUKOCYTES IN BLOOD BY AUTOMATED COUNT 8.1 12/16 Specimen Type: BLOOD No comment entered. Ordering Provider: SHASTA GARDNER Report Released Date/Time : Jan 01, 2024 10:42 AM Reporting Lab: [place] [facility] [address] [place] [address] 8 Performin g Lab: [place] [facility] [address] [place] [address] 8 [facility] CBC NEUTROPHILS /100 LEUKOCYTES IN BLOOD BY AUTOMATED COUNT 67.6 12/16 Specimen Type: BLOOD No comment entered. Ordering Provider: SHASTA GARDNER Report Released Date/Time : Jan 01, 2024 10:42 AM Reporting Lab: [place] [facility] [address] [place] [address] 8 Performin g Lab: [place] [facility] [address] [place] [address] 8 [facility] CBC EOSINOPHILS /100 LEUKOCYTES IN BLOOD BY AUTOMATED COUNT 8.5 12/16 Specimen Type: BLOOD No comment entered. Ordering Provider: SHASTA GARDNER Report Released Date/Time : Jan 01, 2024 10:42 AM Reporting Lab: [place] [facility] [address] [place] [address] 8 Performin g Lab: [place] [facility] [address] [place] [address] 8 [facility] CBC BASOPHILS/1 00 LEUKOCYTES IN BLOOD BY AUTOMATED COUNT 0.8 12/16 Specimen Type: BLOOD No comment entered. Ordering Provider: SHASTA GARDNER Report Released Date/Time : Jan 01, 2024 10:42 AM Reporting Lab: [place] [facility] [address] [place] [address] 8 Performin g Lab: [place] [facility] [address] [place] [address] 8 [facility] CBC LYMPHOCYTES [#/VOLUME] IN BLOOD BY AUTOMATED COUNT 1.24 10*3/uL 0.77 - 4.50 12/16 Specimen Type: BLOOD No comment entered. Ordering Provider: SHASTA GARDNER Report Released Date/Time : Jan 01, 2024 10:42 AM Reporting Lab: [place] [facility] [address] [place] [address] 8 Performin g Lab: [place] [facility] [address] [place] [address] 8 [facility] CBC MONOCYTES [#/VOLUME] IN BLOOD BY AUTOMATED COUNT 0.69 10*3/uL 0.19 - 0.8 12/16 Specimen Type: BLOOD No comment entered. Ordering Provider: SHASTA GARDNER Report Released Date/Time : Jan 01, 2024 10:42 AM Reporting Lab: [place] [facility] [address] [place] [address] 8 Performin g Lab: [place] [facility] [address] [place] [address] 8 [facility] CBC NEUTROPHILS [#/VOLUME] IN BLOOD BY AUTOMATED COUNT 5.77 10*3/uL 2.10 - 8.00 12/16 Specimen Type: BLOOD No comment entered. Ordering Provider: SHASTA GARDNER Report Released Date/Time : Jan 01, 2024 10:42 AM Reporting Lab: [place] [facility] [address] [place] [address] 8 Performin g Lab: [place] [facility] [address] [place] [address] 8 [facility] CBC EOSINOPHILS [#/VOLUME] IN BLOOD BY AUTOMATED COUNT 0.72 10*3/uL 0.00 - 0.60 12/16 H Specimen Type: BLOOD No comment entered. Ordering Provider: SHASTA GARDNER Report Released Date/Time : Jan 01, 2024 10:42 AM Reporting Lab: [place] [facility] [address] [place] [address] 8 Performin g Lab: [place] [facility] [address] [place] [address] 8 [facility] CBC BASOPHILS [#/VOLUME] IN BLOOD BY AUTOMATED COUNT 0.07 10*3/uL 0.00 - 0.20 12/16 Specimen Type: BLOOD No comment entered. Ordering Provider: SHASTA GARDNER Report Released Date/Time : Jan 01, 2024 10:42 AM Reporting Lab: [place] [facility] [address] [place] [address] 8 Performin g Lab: [place] [facility] [address] [place] [address] 8 [facility] CBC IMMATURE GRANULOCYTE S/100 LEUKOCYTES IN BLOOD BY AUTOMATED COUNT 0.4 12/16 Specimen Type: BLOOD No comment entered. Ordering Provider: SHASTA GARDNER Report Released Date/Time : Jan 01, 2024 10:42 AM Reporting Lab: [place] [facility] [address] [place] [address] 8 Performin g Lab: [place] [facility] [address] [place] [address] 8 [facility] CBC IMMATURE GRANULOCYTE S [#/VOLUME] IN BLOOD BY AUTOMATED COUNT 0.03 10*3/uL 0.00 - 0.05 12/16 Specimen Type: BLOOD No comment entered. Ordering Provider: SHASTA GARDNER Report Released Date/Time : Jan 01, 2024 10:42 AM Reporting Lab: [place] [facility] [address] [place] [address] 8 Performin g Lab: [place] [facility] [address] [place] [address] 8 [facility] POC UA (STL-PB-MA ) PROTEIN [MASS/VOLUM E] IN URINE BY TEST STRIP Negativem g/dL 12/16 Specimen Type: URINE No comment entered. Ordering Provider: SHASTA GARDNER Report Released Date/Time : Dec 16, 2024 11:51 AM Reporting Lab: [place] [facility] [address] [facility] [address] Performin g Lab: [facility] [address] [facility] [address] [facility] POC UA (STL-PB-MA ) HEMOGLOBIN [MASS/VOLUM E] IN URINE BY TEST STRIP Negative 12/16 Specimen Type: URINE No comment entered. Ordering Provider: SHASTA GARDNER Report Released Date/Time : Dec 16, 2024 11:51 AM Reporting Lab: [facility] [address] [facility] [address] Performin g Lab: [place] [facility] [address] [place] [place] [address] 6 [place] [facility] POC UA (STL-PB-MA ) LEUKOCYTES [PRESENCE] IN URINE Negative 12/16 Specimen Type: URINE No comment entered. Ordering Provider: SHASTA GARDNER Report Released Date/Time : Dec 16, 2024 11:51 AM Reporting Lab: [place] [facility] [address] [place] [address] Performin g Lab: [place] [facility] [address] [place] [address] [place] [facility] POC UA (STL-PB-MA ) COLOR OF URINE Yellow 12/16 Specimen Type: URINE No comment entered. Ordering Provider: SHASTA GARDNER Report Released Date/Time : Dec 16, 2024 11:51 AM Reporting Lab: [place] [facility] [address] [facility] [address] Performin g Lab: [place] [facility] [address] [facility] [address] [facility] POC UA (STL-PB-MA ) SPECIFIC GRAVITY OF URINE 1.015 1.005 - 1.030 12/16 Specimen Type: URINE No comment entered. Ordering Provider: SHASTA GARDNER Report Released Date/Time : Dec 16, 2024 11:51 AM Reporting Lab: [place] [facility] [address] [facility] [address] Performin g Lab: [place] [facility] [address] [facility] [address] [place] [facility] POC UA (STL-PB-MA ) UROBILINOGE N [UNITS/VOLU ME] IN URINE 1.0 {Ryan' U}/dL 0.1 - 1.0 12/16 Specimen Type: URINE No comment entered. Ordering Provider: SHASTA GARDNER Report Released Date/Time : Dec 16, 2024 11:51 AM Reporting Lab: [place] [facility] [address] [place] [place] [address] Performin g Lab: [place] [facility] [address] [place] [address] [place] [facility] POC UA (STL-PB-MA ) BILIRUBIN.T OTAL [PRESENCE] IN URINE Negative 12/16 Specimen Type: URINE No comment entered. Ordering Provider: SHASTA GARDNER Report Released Date/Time : Dec 16, 2024 11:51 AM Reporting Lab: [place] [facility] [address] [place] [address] Performin g Lab: [place] [facility] [address] [place] [address] [place] [facility] POC UA (STL-PB-MA ) KETONES [MASS/VOLUM E] IN URINE BY TEST STRIP Negativem g/dL 12/16 Specimen Type: URINE No comment entered. Ordering Provider: SHASTA GARDNER Report Released Date/Time : Dec 16, 2024 11:51 AM Reporting Lab: [place] [facility] [address] [facility] [address] Performin g Lab: [place] [facility] [address] [facility] [address] [place] [facility] POC UA (STL-PB-MA ) GLUCOSE [MASS/VOLUM E] IN URINE BY TEST STRIP 250 mg/dL 12/16 Specimen Type: URINE No comment entered. Ordering Provider: SHASTA GARDNER Report Released Date/Time : Dec 16, 2024 11:51 AM Reporting Lab: [place] [facility] [address] [facility] [address] Performin g Lab: [place] [facility] [address] [facility] [address] [place] [facility] POC UA (STL-PB-MA ) PH OF URINE 7.0 5.0 - 8.0 12/16 Specimen Type: URINE No comment entered. Ordering Provider: SHASTA GARDNER Report Released Date/Time : Dec 16, 2024 11:51 AM Reporting Lab: [place] [facility] [address] [place] [address] Performin g Lab: [place] [facility] [address] [facility] [address] [facility] POC UA (STL-PB-MA ) NITRITE [PRESENCE] IN URINE BY TEST STRIP Negative 12/16 Specimen Type: URINE No comment entered. Ordering Provider: SHASTA GARDNER Report Released Date/Time : Dec 16, 2024 11:51 AM Reporting Lab: [facility] [address] [facility] [address] Performin g Lab[facility] [address] [facility] [address] [facility] POC UA (STL-PB-MA ) CLARITY OF URINE Clear 12/16 Specimen Type: URINE No comment entered. Ordering Provider: SHASTA GARDNER Report Released Date/Time : Dec 16, 2024 11:51 AM Reporting Lab: [facility] [address] [facility] [address] Performin g Lab[facility] [address] [facility] [address] [facility] URINE ALBUMIN PROFILE-ih (PB) ALBUMIN [MASS/VOLUM E] IN URINE 7.40 mg/L 0 - 30 06/19 Specimen Type: URINE No comment entered. Ordering Provider: SHASTA GARDNER Report Released Date/Time : Jun 19, 2024 11:01 AM Reporting Lab: [place] [facility] [address] [place] [id number] Performin g Lab: [place] [facility] [address] [place] [id number] [facility] URINE ALBUMIN PROFILE-ih (PB) ALBUMIN/CRE ATININE [MASS RATIO] IN URINE 13.87 ug/mg 06/19 Specimen Type: URINE No comment entered. Ordering Provider: SHASTA GARDNER Report Released Date/Time : Jun 19, 2024 11:01 AM Reporting Lab: [place] [facility] [address] [place] [id number] Performin g Lab: [place] [facility] [address] [place] [id number] [place] [facility] URINE ALBUMIN PROFILE-ih (PB) CREATININE [MASS/VOLUM E] IN URINE 53.36 mg/dL 06/19 Specimen Type: URINE No comment entered. Ordering Provider: SHASTA GARDNER Report Released Date/Time : Jun 19, 2024 11:01 AM Reporting Lab: [place] [facility] [address] [place] [address] Performin g Lab: [place] [facility] [address] [place] [address] [facility] CHOLESTERO L PANEL (PB) CHOLESTEROL [MASS/VOLUM E] IN SERUM OR PLASMA 110 mg/dL 0 - 200 06/19 Specimen Type: PLASMA No comment entered. Ordering Provider: SHASTA GARDNER Report Released Date/Time : Jan 01, 2024 10:42 AM Reporting Lab: [place] [facility] [address] [place] [address] Performin g Lab: [place] [facility] [address] [place] [id number] [facility] CHOLESTERO L PANEL (PB) TRIGLYCERID E [MASS/VOLUM E] IN SERUM OR PLASMA 63 mg/dL 0 - 150 06/19 Specimen Type: PLASMA No comment entered. Ordering Provider: SHASTA GARDNER Report Released Date/Time : Jan 01, 2024 10:42 AM Reporting Lab: [place] [facility] [address] [place] [id number] Performin g Lab: [place] [facility] [address] [place] [id number] [facility] CHOLESTERO L PANEL (PB) CHOLESTEROL IN LDL [MASS/VOLUM E] IN SERUM OR PLASMA BY CALCULATION 51.8 mg/dL 06/19 Specimen Type: PLASMA No comment entered. Ordering Provider: SHASTA GARDNER Report Released Date/Time : Jan 01, 2024 10:42 AM Reporting Lab: [place] [facility] [address] [place] [address] Performin g Lab: [place] [facility] [address] [place] [address] [facility] CHOLESTERO L PANEL (PB) CHOLESTEROL IN HDL [MASS/VOLUM E] IN SERUM OR PLASMA 45.6 mg/dL 40 06/19 H Specimen Type: PLASMA No comment entered. Ordering Provider: SHASTA GARDNER Report Released Date/Time : Jan 01, 2024 10:42 AM Reporting Lab: [place] [facility] [address] [place] [address] Performin g Lab: [place] [facility] [address] [place] [address] [facility] CHOLESTERO L PANEL (PB) CHOLESTEROL IN HDL/CHOLEST VIKTORIA.TOTAL [MASS RATIO] IN SERUM OR PLASMA 41.5 25 06/19 Specimen Type: PLASMA No comment entered. Ordering Provider: SHASTA GARDNER Report Released Date/Time : Jan 01, 2024 10:42 AM Reporting Lab: [place] [facility] [address] [place] [address] Performin g Lab: [place] [facility] [address] [place] [id number] [facility] HGA1C HEMOGLOBIN A1C/HEMOGLO BIN.TOTAL IN BLOOD 7.0 4.0 - 6.0 06/19 H Specimen Type: BLOOD No comment entered. Ordering Provider: SHASTA GARDNER Report Released Date/Time : Jan 01, 2024 10:42 AM Reporting Lab: [place] [facility] [address] [place] [id number] Performin g Lab: [place] [facility] [address] [place] [address] [facility] Vital Signs Combined list of inpatient and outpatient Vital Signs from Department of Defense and Veterans Affairs, ranging from 12 months to all on record, depending upon the facility. Vital Sign Value Date Comments Source SYSTOLIC BLOOD PRESSURE 139 12/16/2024 10:43:26 [facility] DIASTOLIC BLOOD PRESSURE 73 12/16/2024 10:43:26 [facility] 94 % 12/16/[facility]24 10[facility]43:[facility] WE[facility] 206.6 12/16/2024 10:43[facility] BMI 30 kg/m2 12/16/2024 10:43:26 [place] [facility] TEMPERATURE 97.7 12/16/2024 10:43:26 [place] [facility] PULSE 87 12/16/2024 10:43:26 [place] [facility] RESPIRATION 18 12/16/2024 10:43:26 [place] [facility] SYSTOLIC BLOOD PRESSURE 117 06/26/2024 10:37:00 [place] [facility] DIASTOLIC BLOOD PRESSURE 69 06/26/2024 10:37:00 [place] [facility] PULSE OXIMETRY 95 06/26/2024 10:37:00 [facility] [place] [facility] WEIGHT 217.1 06/26/2024 10:37:00 [place] [facility] BMI 31 kg/m2 06/26/2024 10:37:00 [place] [facility] PAIN 0 06/26/2024 10:37:00 [place] [facility] PULSE 83 06/26/2024 10:37:00 [place] [facility] RESPIRATION 17 06/26/2024 10:37:00 [place] [facility] SYSTOLIC BLOOD PRESSURE 115 03/12/2024 10:09:00 [place] [facility] DIASTOLIC BLOOD PRESSURE 71 03/12/2024 10:09:00 [place] [facility] PULSE OXIMETRY 95 03/12/2024 10:09:00 [facility] WEIGHT 207.2 03/12/2024 10:09:00 [place] [facility] BMI 30 kg/m2 03/12/2024 10:09:00 [place] [facility] PAIN 4 03/12/2024 10:09:00 [place] [facility] HEIGHT 70.0 03/12/2024 10:09:00 [place] [facility] TEMPERATURE 98.0 03/12/2024 10:09:00 [place] [facility] PULSE 91 03/12/2024 10:09:00 [place] [facility] RESPIRATION 20 03/12/2024 10:09:00 [place] [facility] SYSTOLIC BLOOD PRESSURE 116 01/01/2024 10:36:00 [place] [facility] DIASTOLIC BLOOD PRESSURE 70 01/01/2024 10:36:00 [place] [facility] PULSE OXIMETRY 94 01/01/2024 10:36:00 [facility] WEIGHT 206.0 01/01/2024 10:36:00 [facility] BMI 30 kg/m2 01/01/2024 10:36:00 [facility] PAIN 0 01/01/2024 10:36:00 [facility] HEIGHT 70.0 01/01/2024 10:36:00 [facility] TEMPERATURE 97.6 01/01/2024 10:36:00 [facility] PULSE 91 01/01/2024 10:36:00 [facility] RESPIRATION 18 01/01/2024 10:36:00 [facility] Encounters Combined list of: 1) Encounters from Department of Veterans Affairs facilities going backup to the last 18 months, not all VA inpatient encounters are included; 2) Encounters from the Department of [facility] facilities going backup to 280 months. Location Location Details Encounter Type Encounter Number Reason For Visit Attending Provider ADM Date DC Date Status Disposition Source [facility] Outpatient Encounter [id number] [facility] [place] [facility] Outpatient Encounter [id number] WALDEMAR,TIN A F 07/18 [place] [facility] OFFICE O/P EST MOD 30 MIN [id number] Diagnos is: ICD-10- CM E11.9 Type 2 diabete s mellitu s without complic ations Christa GARDNER 07[facility]19 [facility] [place] [facility] SPECIAL SUPPLIES PHYS/QHP [id number] Diagnos is: ICD-10- CM G47.30 Sleep apnea, unspeci fied POYNOR,VINNIE HELLE B 07/19 [place] [facility] Outpatient Encounter [id number] 07/24 [facility] Outpatient Encounter [id number] 07/25 [facility] En[facility] [id number] 08/03 [facility] Outpatient Encounter [id number] 08/05 [facility] En[facility] [id number] 09/06 [facility] [place] [facility] Outpatient Encounter [id number] 09/10 [facility] [place] [facility] Outpatient Encounter [id number] DYCUS,CAROLYN EE L 09/10 [place] [facility] Outpatient Encounter [id number] 09/13 [facility] En[facility] [id number] 09/21 [facility] Outpatient Encounter [id number] 09/25 [facility] Outpatient Encounter [id number] 10/18 [facility] Encounter [id number] 10/22 [facility] Encounter [id number] 10/23 [facility] [facility] Outpatient Encounter [id number] 10/23 [place] [facility] Outpatient Encounter [id number] 10/24 [facility] Outpatient Encounter [id number] 11/06 [facility] Encounter [id number] [id number] 11/07 [facility] Outpatient Encounter [id number] 11/21 [facility] Outpatient Encounter [id number] 12/10 [facility] Outpatient Encounter [id number] 12/14 [facility] Outpatient Encounter [id number] 12/26 [facility] OFFICE O/P EST MOD 30 MIN [id number] Diagnos is: ICD-10- CM E11.9 Type 2 diabete s mellitu s without complic ations Christa GARDNER 12/31 [facility] Outpatient Encounter [id number] 01/07 [facility] Outpatient Encounter [id number] 01/07 [facility] [id number] 02/04 [facility] Outpatient Encounter [id number] 02/12 [facility] OFF/OP EST MAY X REQ PHY/QHP [id number] Diagnos is: ICD-10- CM Z23 Encount er for immuniz STEPHANIE Dejesus R 02/28 [facility] Outpatient Encounter [id number] 03/07 [facility] Outpatient Encounter [id number] 03/11 [facility] OFFICE O/P EST LOW 20 MIN [id number] Diagnos is: ICD-10- CM I25.10 Athscl heart disease of [place] coronar y artery w/o ang pctrs Christa GARDNER 03/12 [facility] Outpatient Encounter [id number] 03/14 [facility] Outpatient Encounter [id number] 03/26 [facility] Outpatient Encounter [id number] 03/26 [facility] Outpatient Encounter [id number] [id number] 04/10 [facility] Outpatient Encounter [id number] [id number] 04/12 [facility] Outpatient Encounter [id number] [id number] 04/16 [facility] Outpatient Encounter [id number] 05/01 [facility] Outpatient Encounter [id number] 05/13 [facility] QNHP OL DIG ASSMT&MGMT 5-10 [id number] Diagnos is: ICD-10- CM E11.9 Type 2 diabete s mellitu s without complic ations MIKY DUKES V 05/14 [facility] Outpatient Encounter [id number] 05/17 [facility] Outpatient Encounter [id number] [id number] 05/27 [facility] Outpatient Encounter [id number] 05/29 [facility] Outpatient Encounter [id number] 06/07 [facility] NQHP OL DIG ASSMT&MGMT 5-10 [id number] Diagnos is: ICD-10- CM E11.9 Type 2 diabete s mellitu s without complic ations MIKY DUKES V 06/07 [facility] Outpatient Encounter [id number] 06/12 [facility] Outpatient Encounter [id number] 06/18 [facility] Outpatient Encounter [id number] 06/18 [facility] Outpatient Encounter [id number] 06/25 [facility] OFFICE O/P EST MOD 30 MIN [id number] Diagnos is: ICD-10- CM E11.9 Type 2 diabete s mellitu s without complic ations Christa GARDNER 06/26 [facility] Outpatient Encounter [id number] 06/28 [facility] Encounter [id number] 06/28 [facility] Outpatient Encounter [id number] 07/03 [facility] Outpatient Encounter [id number] 07/08 [facility] Encounter [id number] 07/10 [facility] Encounter [id number] 07/25 [facility] Encounter [id number] 08/21 [facility] Outpatient Encounter [id number] 09/09 [facility] Outpatient Encounter [id number] 09/12 [facility] Outpatient Encounter [id number] 09/23 [facility] Outpatient Encounter [id number] 09/24 [facility] Outpatient Encounter [id number] ROGER SORTO 09/24 [facility] Outpatient Encounter [id number] Marquise FERRERA 09/24 [facility] Outpatient Encounter [id number] 09/25 [facility] Outpatient Encounter [id number] 09/25 [facility] Outpatient Encounter [id number] 10/11 [facility] Outpatient Encounter [id number] 10/11 [facility] Outpatient Encounter [id number] 10/15 [facility] Outpatient Encounter [id number] 10/17 [facility] Outpatient Encounter [id number] ACROSEMARIE ASH 10/18 [facility] Outpatient Encounter [id number] 10/21 [facility] Outpatient Encounter [id number] 11/05 [facility] Outpatient Encounter [id number] 11/06 [facility] Outpatient Encounter [id number] MOLLY SCHULZ 11/07 [facility] Outpatient Encounter [id number] 11/12 [facility] [place] [facility] Outpatient [facility]counter [id number] 11/13 [place] [facility] Outpatient Encounter [id number] 12/09 [facility] OFF/OP EST MAY X REQ PHY/QHP [id number] Diagnos is: ICD-10- CM R10.31 Right lower quadran t pain NILSA FERRARO 12/16 [facility] Outpatient Encounter [id number] 12/16 [facility] OFFICE O/P EST MOD 30 MIN [id number] Diagnos is: ICD-10- CM M54.50 Low back pain, unspeci fied MORENITA CONNOLLY G 12/16 [facility] Outpatient Encounter [id number] 12/19 [facility] Outpatient Encounter [id number] JOHANNA ROBERSON A 12/24 [facility] Outpatient Encounter [id number] ELIZABETH FLOWERS RIL L 12/27 [facility] [place] [facility] Outpatient Encounter [id number] 12/30 [place] [facility] Social History Combined list of available smoking, tobacco, and other social history from Department of Defense and Veterans Affairs facilities. Social History Type Response Date Comment Source Tobacco smoking status IDIS VA-TOBACCO FORMER USER 01/01/2024 [facility] History of tobacco use VA-TOBACCO QUIT 15 YRS OR MORE 01/01/2024 [facility] History of tobacco use VA-TOBACCO FORMER USER 12/22/2022 [facility] History of tobacco use VA-TOBACCO NEVER USED 12/06/2021 [facility] History of tobacco use [place]-TOBACCO QUIT 5 TO < 15 YRS 02/05/2019 [facility] History of tobacco use QUIT TOBACCO >7 YEARS AGO 01/25/2018 [facility] History of tobacco use QUIT TOBACCO >7 YEARS AGO 09/29/2014 [facility] History of tobacco use LIFETIME NON-USER OF TOBACCO 09/09/2013 [facility] History of tobacco use QUIT TOBACCO >12 MO and <7 YRS AGO 08/22/2012 [facility] History of tobacco use QUIT TOBACCO >12 MO and <7 YRS AGO 07/08/2011 [facility] History of tobacco use QUIT TOBACCO >12 MO and <7 YRS AGO 07/28/2010 [facility] History of tobacco use QUIT TOBACCO >12 MO and <7 YRS AGO 07/22/2009 [facility] History of tobacco use TOBACCO OFFERRED STOP SMOKING CLINIC 04/01/2008 [facility] History of tobacco use TOBACCO OFFERED PT MEDS (PROVIDER) 03/05/2008 is quitting on his own [facility] History of tobacco use TOBACCO OFFERED PT MEDS (PROVIDER) 12/24/2007 refuses at this time [facility] History of tobacco use TOBACCO OFFERED STOP SMOKING CLINIC 10/18/2007 ANNIE GARC[facility] Plan of Care List of future care activities from Department of Veterans Affairs facilities. Additional future care activities may be listed in the Assessment and Plan section. Date/Time Care Activity Care Activity Detail Facili ty 01/16/2025 AMBULATORY - MEDICINE AMBULATORY - MEDICI NE [facility]
--- NOTE | 2024-12-30 12:58 | XR_ITS ---
WS: [id number] KUB, AP view, 12/30/2024 Clinical Data: constipation Comparison: KUB, 12/26/2024 Findings: No abnormal intraabdominal masses or calcifications are seen. The colon is dilated more. The bladder is full. There is vascular calcification. XR/XR KUB [id number] Impression: Worsening colon dilatation.
--- OUTSIDE RECORDS SUMMARY | 2024-12-30 13:08 | XMS_ITS | Encounter Summary ---
Author Organization [facility] Address [address] [place] [address] Care Team Providers Care Sports Equipment Racker Name Role Phone Unavailable Primary Care Provider Unavailabl e Reason for Referral * PET Scan (Urgent) - Closed Specialty Diagnoses / Procedures Referred By Contac t Referred To Contact Radiology Diagnoses Malignant neoplasm of upper lobe, right bronchus or lung (CMS/HCC) Procedures PET TUMOR IMG W CT SKL BSE MID THG Nuno Campbell MD [address] [place] [phone] Phone: tel: fax: [facility] Nuclear Medicine [address] [place] [phone] Phone: tel: fax: Referral ID Status Reason Start Date Expiration Date V isits Requested Visits Authorized [id number] Closed [facility] [place] Schedule 03/02/2020 04/02/2021 1 1 Encounter Details Date Type Department Care Team (Late st Contact Info) Description 03/02/2020 Ancillary Orders [facility] Pre-Registration [place] CALL TO MAKE APPOINTMENT ONLY [address] [place] [address] Nuno Campbell MD [address] [place] [phone] Malignant neoplasm of upper lobe, right [...] from Skull Base to Mid Thigh: Radiopharmaceutical: [id number]-45-Rcwkvbldxfxksqxewq Dose: 13.2 mCi right forearm IV Time of Injection: 1335 hrs BMI: Not available Clinical Indication: Initial treatment strategy to evaluate malignant neoplasm of the right lung upper lobe for staging examination FDG (Z-[id number]) PET imaging was performed at 1422 hrs [...] from Skull Base to Mid Thigh: Radiopharmaceutical: [id number]-96-Filwoutcffgmzpiryd Dose: 13.2 mCi right forearm IV Time of Injection: 1335 hrs BMI: Not available Clinical Indication: Initial treatment strategy to evaluate malignant neoplasm of the right lung upper lobe for staging examination FDG ([id number]-38-Veyoupincfixnluoyg) PET imaging was performed at 1422 hrs [...]
--- OUTSIDE RECORDS SUMMARY | 2024-12-30 13:08 | XMS_ITS | Clinical Summary ---
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 Gender Identity Not on file Sexual Orientation [...] (#1) 2024 Medical Devices Implanted Type Area Material Dispatcher Device Identifier Shelf Expiration Date Model / Serial / Lot Angio-Seal Vip Closure Dev [id number] - [id number] Implanted:Qty: 1 on 10/01/2020 Closure Device Right: Groin [employer] 07/12/2021 [id number] / / [id number] Stent Synergy Mr 4.0x32mm Drug Elut [id number] - [id number] Implanted:Qty: 1 on 10/01/2020 by Joseph Montalvo MD Stent Right: Leg [employer] 01/28/2022 [id number] / / [id number] Stent Vasc Alva [id number] - [id number] Implanted:Qty: 1 on 10/01/2020 Stent Right: Leg [employer] 01/30/2022 [id number] / / [id number] Stent Viabahn Hep [id number] - [id number] Implanted:Qty: 1 on 10/01/2020 Stent Right: Leg [employer] 07/20/2023 [id number] / [id number] / Insurance MEDICARE PART A AND B * Guarantor: MARBIN FUNEZ Account Type Relation to Patient Date of Phone Billing Address Personal/Family [address] [place] [id number] RX [employer] RX Member Subscriber Plan / Payer (Ef fective for All Dates) Name:Dee DeeMarbin Relation to Subscriber:Self Name:Dee DeeMarbin Payer ID:Not on file Type:RX Commercial Address: [place] * Guarantor: OLD [address] [facility] Account Type Relation to Patient Date of Phone Billing Address Corporate Other DEFAULT ADDRESS [place] [address] [facility] [employer]
--- OUTSIDE RECORDS SUMMARY | 2024-12-30 13:08 | XMS_ITS | Clinical Summary ---
Author Organization [facility] Address [address] [place] [address] Phone Care Team Providers Care Welding Production Supervisor Name Role Phone Unavailable Primary Care Provider [...] syndrome of right lower extremity Atherosclerosis of [place] of extremity with rest pain [...] (#1) 2024 Medical Devices Implanted Type Area Medical Record Specialist Device Identifier Shelf Expiration Date Model / Serial / Lot Angio-Seal Vip Closure Dev [id number] - [id number] Implanted:Qty: 1 on 10/01/2020 at [facility] Closure Device Right: Groin [employer] 07/12/2021 [id number] / / [id number] Stent Viabahn Hep 0msc5hr [id number] - [id number] Implanted:Qty: 1 on 10/01/2020 at [facility] Stent Right: Sol [employer] 07/20/2023 [id number] / [id number] / Stent Synergy Mr 4.0x32mm Drug Elut [id number] - [id number] Implanted:Qty: 1 on 10/01/2020 by Joseph Montalvo MD at [facility] Stent Right: Leg [employer] 01/28/2022 [id number] / / [id number] Stent Vasc Alva [id number] - [id number] Implanted:Qty: 1 on 10/01/2020 at [facility] Stent Right: Leg [employer] 01/30/2022 [id number] / / [id number] Insurance MEDICARE PART A AND B RX OPTUM RX Member Subscriber Plan / Payer (Ef fective for All Dates) Name:RandycarissaMarbin Relation to Subscriber:Self Name:ENMA FUNEZJANAE CORDERO Payer ID:Not on file Type:RX Commercial Address: [place] [facility]UM [facility] [place] [address] Advance Directives For more information, please contact: [phone] * Full Code (Latest Code Status on File) Date Activated Date Inactivated Comments 10/01/2020 11:52 AM 10/03/2020 7:18 PM
--- OUTSIDE RECORDS SUMMARY | 2024-12-30 13:09 | XMS_ITS | Patient Health Record ---
Author Organization [facility] Address [address] [place] [address] Care Team Providers Care Kersey Department Supervisor Name Role Phone [facility] Primary Care Provider Unav ailable Robert Phillips Unavailable [phone] [place], [place] Unavailable Unavailable Jonas Caldwell Unavailable [phone] Allergies No Known Allergies Reason For Referral Reason malignant neoplasm o f upper lobe, bronchus of lung: [facility] - Scheduled Diagnosis 1 Malignant neoplasm o f upper lobe, right bronchus or lung (C34.11) Referring Provider First Name Jose Antonio Jean Baptisteu Referring Provider Last Name [place] Referring Provider Speciality [facility] Referred Organization [facility] Referred Provider Robert Phillips Referred Address [address],[place], [place],[address],[place] Referred Provider Specialty Pulmonary Di seases General Notes Svitlana Casper 05/06 04:28:32 PM >04/25-JAYCE @ [facility] to get imaging info., Svitlana Casper 05/13/2024 03:37:02 PM >Email from Lucero @ [facility]- he is a cancer patient at [facility] oncology. Joanna in the cancer center at [facility] states they can cloud share to you guys but Jessica has to do it. She will be returning on Monday05/20/2024. He's had CT chests in 04/07, Pet08/05, more CTs of chest done 12/[address] on 08/04 that will all be sent over as next week., Svitlana Casper 05/20/2024 04:31:35 PM >Images received via [employer]Tremayne Meranda 05/20/2024 04:53:40 PM >LVM for [facility] medical records for the reports of the images, Svitlana Casper 05/21/2024 09:04:48 AM >Received Reports for imaging., Sivtlana Casper 05/21/2024 02:08:37 PM >Scheduled 05/29/2024 @ [...] Date Status Comme nts Influenza (whole), CPT 46017 Inactive Unknown 03/01/2019 Administered Social History Tobacco [...] neoplasm of upper lobe, bronchus or lung (186133684) Malignant neoplasm of upper lobe, right bronchus or lung (C34.11) Active confirmed Problem Obstructive sleep apnea syndrome (24371223) DINESH (obstructive sleep apnea) (G47.33) Active confirmed Problem Chronic obstructive pulmonary disease (97087854) 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) Active confirmed Problem Chronic respiratory failure (14367354) Chronic hypoxic respiratory failure (J96.11) Active confirmed [...] N/A Encounters Encounter Location Date Provider Diagnosis [facility] [address] [place] [address] 05/29/2024 Robert Phillips Shortness of breath R06.02 ; Malignant neoplasm of upper lobe, right bronchus or lung C34.11 ; Former smoker Z87.891 and DINESH (obstructive sleep apnea) G47.33 [facility] [address] [place] [address] 05/30/2024 Robert Phillips Shortness of breath R06.02 [facility] [address] [place] [address] 07/08/2024 Robert Phillips Shortness of breath R06.02 [facility] [address] [place] [address] [place] [address] 07/08/2024 Robert Phillips Shortness of breath R06.02 ; Stage 2 moderate COPD by GOLD classification J44.9 ; Malignant neoplasm of upper lobe, right bronchus or lung C34.11 ; Former smoker Z87.891 and DINESH (obstructive sleep apnea) G47.33 [facility] [address] [place] [address] [place] [address] 10/17/2024 Robert Phillips Shortness of breath R06.02 ; Stage 2 moderate COPD by GOLD classification J44.9 ; Malignant neoplasm of upper lobe, right bronchus or lung C34.11 ; Former smoker Z87.891 ; DINESH (obstructive sleep apnea) G47.33 and Chronic cough R05.3 [facility] [place] [address] 03/27/2024 Jonas Caldwell [facility] [address] [place] [address] [place] [address] 05/30/2024 Robert Phillips [facility] [address] [place] [address] [place] [address] 08/05/2024 Robert Phillips Assessments Encounter Date Diagnosis (ICD Code) Assessment Notes Treatment Notes Treatment Clinical Notes Section Notes 05/29/2024 Shortness of breath (ICD-10 - R06.02) Patient was being treated for COPD in [place], [place]. Continue Albuterol HFA. Hold Stiolto. I will give him a sample of Trelegy and Breztri. -Obtain PFT and 6MW 05/29/2024 Malignant neoplasm of upper lobe, right bronchus or lung (ICD-10 - C34.11) Patient currenlty following Oncology in [place], [place]. Obtain repeat chest CT March 18, [...] - C34.11) Patient currenlty following Oncology in [place], [place]. Obtain repeat chest CT March 2025. 07/08/2024 Malignant neoplasm of upper lobe, right bronchus or lung (ICD-10 - C34.11) Patient currenlty following Oncology in [place], [place]. Obtain repeat chest CT March 18, 2025. 05/29/2024 Former smoker (ICD-10 - Z87.891) Patient smoked 2 fbkmr-iiy-cdw for 49 years. He has been abstinent since he was 62 years old. 05/29/2024 DINESH (obstructive sleep apnea) (ICD-10 - G47.33) Patient states he has sleep apnea and uses oxygen at night. 07/08/2024 Former smoker (ICD-10 - Z87.891) Patient smoked 2 oellb-ixs-jid for 49 years. He has been abstinent since he was 62 years old. 10/17/2024 Former smoker (ICD-10 - Z87.891) Patient smoked 2 zorom-gdy-wwi for 49 years. He has been abstinent [...] Name Order Date CT Chest w/o Contrast diagnostic-[id number] 1 Next Appt Details Provider Name:Robert Phillips, 03/24/2025 01:10:00 PM, [address] [place] [address] [address], [place], [address], Insurance Providers Payer Name Payer Address Payer Phone Subscriber Number Group Number Insured Name Patient Relationship to Insured Coverage Start Date Coverage End Date [employer]UM [address] [place] [phone] [id number] NOAH FUNEZ Self - patient is the insured Medical (General) History Medical History History ICD Code Chronic Obstructive Pulmonary Disease Coronary arteriosclerosis Diabetes mellitus Hyperlipidemia Problem:Hypertensive disorder, systemic arterial Sleep apnea Surgical History Surgery Date(Month/Year) Vascular calf leg 12.18.24 Heart 2023,2010 Vascular right leg 2021 Bladder 2007 Vascular 2020 Hospitalization History Reason Date(Month/Year) See Sx HX
[2024-12-30 13:15] VITALS: BP 144/63; PULSE 96; TEMP 36.6; O2SAT 97; BMI 29.5
[2024-12-30 13:42] LABS: Hematocrit 39.4 % (37-53); Hemoglobin 12.90 g/dL (11.27-16.99); Mean Corpuscular HGB Conc 32.7 g/dL (30-55); Mean Corpuscular Hemoglobin 29.9 pg (27-33); Mean Corpuscular Volume 91.2 fl (82-101); Nucleated Red Blood Cells % 0 %; Platelet Count 287 10^3/cmm (157-399); Red Blood Count 4.32 10^6/uL (3.85-5.65); White Blood Count 9.21 10^3/uL (3.29-11.43)
[2024-12-30 13:55] VITALS: RESP 18; O2SAT 96
--- NOTE | 2024-12-30 13:56 | W.ED.ABDPA2 ---
HPI - Abdominal Pain General: Chief Complaint: Abdominal Pain Stated Complaint: constipation, abd pain Time Seen by Provider: 12/30/24 13:25 Source: patient Mode of arrival: ambulatory Limitations: no limitations History of Present Illness: 79-year-old male who states has been having constipation for the last few weeks he has tried multiple treatments has not been able have a bowel movement. He denies any vomiting has had some abdominal cramping. He denies any worse or improving factors. Associated Symptoms: Reports constipation; Denies chills, diarrhea, dysuria, fever(s), nausea and vomiting Related Data Home Medications ?Medication ?Instructions ?Recorded ?Confirmed aspirin 81 mg tablet,delayed 81 mg PO DAILY@12 09/18/19 12/17/24 release cholecalciferol (vitamin D3) 25 25 mcg PO DAILY@0709/18/19 12/17/24 mcg (1,000 unit) capsule cetirizine 10 mg tablet 10 mg PO DAILY 10/07/21 12/17/24 isosorbide mononitrate 60 mg 90 mg PO QAM 10/07/21 12/17/24 tablet,extended release 24 hr multivitamin 1 tab PO DAILY 10/07/21 12/17/24 levothyroxine 75 mcg tablet 150 mcg PO DAILY 12/07/21 12/17/24 insulin glargine 100 unit/mL (3 40 unit SUBCUT DAILY see pharmacy 01/14/22 12/17/24 mL) subcutaneous pen comments cilostazol 50 mg tablet 100 mg PO BID 09/15/22 12/17/24 polyethylene glycol 3350 17 gram 17 g PO DAILY 10/13/22 12/17/24 oral powder packet (Miralax) albuterol sulfate 90 mcg/actuation 1 inh inhalation QID 02/20/24 12/17/24 aerosol inhaler Solu-Medrol (PF) 210 mg PO DIRECTED 12/17/24 12/17/24 insulin aspart U-100 100 unit/mL 20 unit SUBCUT TID 12/17/24 12/17/24 (3 mL) subcutaneous pen (Novolog FlexPen U-100 Insulin aspart) urea 40 % topical cream 1 applic topical PRN 12/17/24 12/17/24 Previous Rx's ?Medication ?Instructions ?Recorded Sole supports #1 ea 09/18/19 Custom orthotics #1 ea 11/20/19 Diabetic shoes with custom inserts #1 ea 12/08/20 Diabetic Shoes with 3 sets of #1 ea 11/08/21 insoles glucagon 1 mg solution for 1 mg SUBCUT Q20M PRN hypoglycemia 11/23/21 injection (Glucagon Emergency Kit) #1 ea hydrocortisone 2.5 % topical cream 1 applic topical BID #30 grams 02/01/22 atorvastatin 80 mg tablet 40 mg (1/2 x 80 mg) PO QPM #45 tabs 04/06/22 triamcinolone acetonide 0.025 % 1 applic topical BID #60 mL 11/02/22 lotion guaifenesin 600 mg tablet, 600 mg PO .three times week #90 11/24/22 extended release 12 hr tabs mometasone 100 mcg/actuation HFA 1 puff inhalation BID #13 grams 10/12/23 aerosol inhaler gabapentin 100 mg capsule 100 mg PO TID #270 caps 12/11/23 clopidogrel 75 mg tablet 75 mg PO DAILY #90 tabs 03/07/24 2 Pairs of Custom Molded Orthotics #1 ea 03/15/24 A5514 blood-glucose,on call,cont #1 ea 06/17/24 (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 with custom inserts #1 ea 09/09/24 blood-glucose sensor (Dexcom G7 #3 ea 10/15/24 Sensor device) metformin 500 mg tablet,extended 500 mg PO BID #180 tabs 10/15/24 release 24 hr losartan 50 mg tablet See Rx Instructions .Route 11/07/24 .COMPLEX #135 tabs Diabetic Shoes with 3 inserts #1 ea 12/09/24 peg 3350-electrolytes 236 240 ml PO Q10M #4,000 mL 12/26/24 gram-22.74 gram-6.74 gram-5.86 gram solution (Golytely) Allergies Allergy/AdvReac Type Severity Reaction Status Date / Time No Known Allergies Allergy Verified 12/30/24 13:20 Review of Systems Const: Denies: fever(s), chills, body aches or change in appetite ENMT: Denies: throat pain or dental pain Card: Denies: chest pain Resp: Denies: dyspnea GI: Reports: abdominal pain and constipation; Denies: nausea, vomiting or diarrhea : Denies: dysuria Musc: Denies: neck pain or back pain Skin/Breast: Denies: rash Neuro: Denies: headache(s) PFSH ED PFSH: Medical History Atherosclerosis of coronary artery Lung nodule Type 2 diabetes mellitus with diabetic polyneuropathy Bladder cancer PVD (peripheral vascular disease) Surgical History Port-A-Cath in place (04/01/20) H/O esophagogastroduodenoscopy (04/01/20) History of bronchoscopy History of bladder surgery History of surgical removal of pilonidal cyst H/O colonoscopy H/O heart artery stent Family History Other CAD (coronary artery disease) Cancer Diabetes Hyperlipidemia Hypertension Lung disease Denies family history of Clotting disorder Dementia Psychiatric illness Chronic kidney disease (CKD) Suicide Anesthesia complication Bleeding disorder Family history of premature coronary artery disease Stroke Social History Smoking and tobacco/nicotine status: former use of tobacco/nicotine Quit status (tobacco/nicotine): has quit using Year quit tobacco: 06-17 PPD x 45 Years Alcohol intake: never Substance/Drug Use: never Lives independently: Yes Household members: spouse Marital status: service: Yes Current occupational status: retired Do you think of yourself as: Straight/Heterosexual Current gender identity: Male Physical Exam Const: COMMON NORMALS: no acute distress, patient oriented x3 and healthy appearing HENMT: COMMON NORMALS: normocephalic and atraumatic HEAD & SCALP: normocephalic and atraumatic Eye: COMMON NORMALS: conjunctivae normal CONJUNCTIVA: Yes conjunctivae normal Neck/C-Spine: COMMON NORMALS: full ROM and supple Chest: COMMONS NORMALS: normal inspection of the chest Resp: COMMON NORMALS: normal respiratory effort, No retractions, No use of accessory muscles and clear to auscultation bilaterally AUSCULTATION: clear to auscultation bilaterally Cardio: COMMON NORMALS: regular rate, regular rhythm and No murmurs present (Cardio) RATE: regular rate RHYTHM: regular rhythm GI: COMMON NORMALS: Normal to inspection, nondistended, normoactive bowel sounds present, Soft to palpation, non-tender and no masses PALPATION: Yes Soft to palpation Extremity: COMMON NORMALS: normal to inspection and full ROM Neuro: COMMON NORMALS: patient oriented x3, moves all extremities and no focal motor deficits Psych: COMMON NORMALS: mental status grossly normal, Normal thought process present and cooperative THOUGHT PROCESS: Normal thought process present Skin: COMMON NORMALS: no rashes or lesions noted and no wounds GENERAL SKIN EXAM: no rashes or lesions noted Course Vital Signs: Vital signs: Vital Signs Temperature 97.9 F 12/30/24 13:15 Pulse Rate 96 12/30/24 13:15 Respiratory Rate 18 12/30/24 13:55 Blood Pressure 144/74 12/30/24 15:02 Pulse Oximetry 92 12/30/24 15:02 Oxygen Delivery Me thod Room Air 12/30/24 15:02 MDM - Abdominal Pain Medical Decision Making Patient presents for his abdominal pain CT still shows that he has an ileus I did speak to Dr. Wetzel who he is seeing on who recommended he is going to refer him to GI he has minimal pain no vomiting he stable for discharge. Medical Records I reviewed the patient's medical records. Lab Data I reviewed the patient's lab results. 12/30/24 13:29 12/30/24 13:29 Labs/Radiology: Radiology Impressions KUB X-Ray 12/30/24 12:58 Impression: Worsening colon dilatation. Abdomen/Pelvis CT 12/30/24 14:02 IMPRESSION: 1. Mildly distended loops of large and small bowel with air-fluid levels. This is a nonspecific finding but can be seen with an ileus/enterocolitis. Given lack of transition point as well as involvement of both large and small bowel, a bowel obstruction is felt to be less likely. 2. Please see above comments for additional details. Laboratory Results WBC 9.21 10^3/uL (3.29-11.43) 12/30/24 13:29 RBC 4.32 10^6/uL (3.85-5.65) 12/30/24 13:29 Hgb 12.90 g/dL (11.27-16.99) 12/30/24 13:29 Hct 39.4 % (37-53) 12/30/24 13:29 MCV 91.2 fl (82-101) 12/30/24 13: MCH 29.9 pg (27-33) 12/30/24 13: MCHC 32.7 g/dL (30-55) 12/30/24 13: RDW 13.7 % (12.1-15.1) 12/30/24 13: Plt Count 287 10^3/cmm (157-399) 12/30/24 13: MPV 8.1 fL (7.4-10.4) 12/30/24 13: Neut % (Auto) 68.1 % 12/30/24 13: Lymph % (Auto) 16.1 % 12/30/24 13: [place] % (Auto) 7.4 % 12/30/24 13: Eos % (Auto) 7.7 % 12/30/24 13: Baso % (Auto) 0.4 % 12/30/24: Neut # (Auto) 6.27 10^3/uL (1.8-7.7) 12/30/24 13: Lymph # (Auto) 1.5 10^3/uL (0.8-4.8) 12/30/24 13: [place] # (Auto) 0.7 10^3/uL (0.2-0.9) 12/30/24 13: Eos # (Auto) 0.7 10^3/uL (0.0-0.8) 12/30/24 13: Baso # (Auto) 0.0 10^3/uL (0.0-0.1) 12/30/24: Nucleated RBC % (auto) 0 % 12/30/24 13: Nucleated RBCs # 0.0 /100WBC 12/30/24 13: Sodium 133 mmol/L (136-145) L 12/30/24 13: Potassium 4.3 mmol/L (3.5-5.1) 12/30/24 13: Chloride 96 mmol/L (98-107) L 12/30/24 13: Carbon Dioxide 26 mmol/L (22-29) 12/30/24 13: Anion Gap 15.3 (5-19) 12/30/24 13: BUN 4 mg/dL (8-23) L 12/30/24 13:29 Creatinine 0.6 mg/dL (0.7-1.2) L 12/30/24 13:29 GFR Calculation Not Reportable 12/30/24 13:29 Glucose 65 mg/dL (65-115) 12/30/24 13:29 Calculated Osmolality 271 mOsm/kg (285-295) L 12/30/24 13:29 Calcium 9.6 mg/dL (8.5-10.5) 12/30/24 13:29 Total Bilirubin 0.3 mg/dL (0.15-1.2) 12/30/24 13:29 AST 18 U/L (0-40) 12/30/24 13:29 ALT 16 U/L (0-41) 12/30/24 13:29 Alkaline Phosphatase 88 U/L (40-130) 12/30/24 13:29 Total Protein 7.0 g/dL (6.6-8.7) 12/30/24 13:29 Albumin 4.2 g/dL (3.5-5.2) 12/30/24 13:29 Globulin 2.8 g/dL (1.3-4.6) 12/30/24 13:29 Lipase 8 U/L (13-60) L 12/30/24 13:29 All radiology interpretation(s) finalized by discharge Discharge Plan Discharge Patient Disposition: Home Clinical Impression: Adynamic ileus Condition: Stable Prescriptions: No Action cholecalciferol (vitamin D3) 25 mcg (1,000 unit) capsule 25 mcg PO DAILY@0730 aspirin 81 mg tablet,delayed release (DR/EC) 81 mg PO DAILY@12 (DME) Sole supports Qty: 1 0RF Rx Instructions: As directed insulin glargine 100 unit/mL (3 mL) insulin pen 40 unit SUBCUT DAILY (DME) Custom orthotics See Rx Instructions .Route .MEDSUPPLY Qty: 1 0RF [facility] Inst[facility]: [facility]) Diabetic shoes with custom inserts See Rx Instructions .Route .MEDSUPPLY Qty: 1 0RF Rx Instructions: As directed BY CORRINE&O levothyroxine 75 mcg tablet 150 mcg PO DAILY Rx Instructions: One by mouth daily Monday thru Monday, and none on Monday. cilostazol 50 mg tablet 100 mg PO BID (DME) Diabetic Shoes with 3 sets of insoles See Rx Instructions .Route .MEDSUPPLY Qty: 1 0RF Rx Instructions: As directed by CORRINE&O hydrocortisone 2.5 % cream 1 applic topical BID Qty: 30 2RF Rx Instructions: Apply to the top of the left foot Twice a day. triamcinolone acetonide 0.025 % lotion 1 applic topical BID Qty: 60 0RF clopidogrel 75 mg tablet 75 mg PO DAILY Qty: 90 3RF (DME) diabetic shoes with custom inserts See Rx Instructions .Route .MEDSUPPLY Qty: 1 0RF Rx Instructions: As directed to [facility] diabetic [facility] metformin 500 mg tablet extended release 24 hr 500 mg PO BID Qty: 180 1RF (DME) Dexcom G7 Sensor Device See Rx Instructions .Route Qty: 3 3RF Rx Instructions: change sensor every 10 days Glucagon Emergency Kit (human) 1 mg recon soln 1 mg SUBCUT Q20M PRN (Reason: hypoglycemia) Qty: 1 3RF Rx Instructions: until target blood sugar attained polyethylene glycol 3350 [Miralax] 17 gram powder in packet 17 g PO DAILY mometasone 100 mcg/actuation HFA aerosol inhaler 1 puff inhalation BID Qty: 13 0RF gabapentin 100 mg capsule 100 mg PO TID Qty: 270 3RF (DME) Diabetic Shoes with 3 inserts See Rx Instructions .Route .MEDSUPPLY Qty: 1 0RF Rx Instructions: As directed to the [facility] atorvastatin 80 mg tablet 40 mg PO QPM Qty: 45 3RF guaifenesin 600 mg tablet extended release 12hr 600 mg PO .three times week Qty: 90 3RF (DME) 2 Pairs of Custom Molded Orthotics A5514 See Rx Instructions .Route .MEDSUPPLY Qty: 1 0RF Rx Instructions: As directed [facility] (DME) 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 See Rx Instructions .Route Qty: 1 0RF Rx Instructions: As directed losartan 50 mg tablet See Rx Instructions .ROUTE .COMPLEX Qty: 135 3RF Dose Instruction: TAKE ONE AND ONE-HALF TABLETS BY MOUTH ONCE A DAY Rx Instructions: TAKE ONE AND ONE-HALF TABLETS BY MOUTH ONCE A DAY isosorbide mononitrate 60 mg Tablet Extended Release 24 Hr 90 mg PO QAM cetirizine 10 mg Tablet 10 mg PO DAILY multivitamin Tablet 1 tab PO DAILY urea 40 % cream 1 applic topical PRN Solu-Medrol (PF) 210 mg PO DIRECTED insulin aspart U-100 [Novolog FlexPen U-100 Insulin] 100 unit/mL (3 mL) insulin pen 20 unit SUBCUT TID Rx Instructions: INJECT 20 UNITS UNDER THE SKIN THREE TIMES A DAY BEFORE MEALS ADMINISTER 10 MINUTES BEFORE FOOD DIRECTED. REFRIGERATE UN-OPENED PENS. DISCARD CARTRIDGE 28 DAYS AFTER OPENING. 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
--- NOTE | 2024-12-30 14:02 | CTR_ITS ---
PROCEDURE INFORMATION: Exam: CT Abdomen And Pelvis With Contrast Exam date and time: 12/30/2024 2:40 PM Age: 79 years old Clinical indication: Abdominal pain; Localized; Right; Prior surgery; Surgery date: 6+ months; Surgery type: Cardiac stents, bladder, port; HX of bladder and lung cancer; Additional info: Abd pain TECHNIQUE: Imaging protocol: Computed tomography of the abdomen and pelvis with contrast. Radiation optimization: All CT scans at this facility use at least one of these dose optimization techniques: automated exposure control; mA and/or kV adjustment per patient size (includes targeted exams where dose is matched to clinical indication); or iterative reconstruction. Contrast material: OMNI 350; Contrast volume: 100 ml; Contrast route: INTRAVENOUS (IV); COMPARISON: CT abdomen pelvis w con* [id number] 12/23/2024 10:38 AM RADIATION DOSE METRICS: Total DLP (mGy-cm): 779.1 FINDINGS: Lungs: Lung bases are clear as visualized. Diaphragm: There may be a small hiatal hernia. Liver: There is mild fatty infiltration of the liver. The liver is otherwise normal. Gallbladder and biliary ducts: Normal. No calcified stones. No ductal dilation. Pancreas: Normal. No ductal dilation. Spleen: Normal. No splenomegaly. Adrenal glands: Normal. No mass. Kidneys and ureters: Normal. No hydronephrosis. Stomach and bowel: There are air-fluid levels involving non and mildly dilated loops of large and small bowel. No definite transition point is identified. No definite bowel wall thickening or pneumatosis is noted. Appendix: No evidence of appendicitis. Intraperitoneal space: Unremarkable. No free air. No significant fluid collection. Vasculature: The aorta is normal in caliber. There is calcified plaque involving the aorta and its branch vessels. Lymph nodes: Unremarkable. No enlarged lymph nodes. Urinary bladder: Unremarkable as visualized. Reproductive: Unremarkable as visualized. Bones/joints: Unremarkable. No acute fracture. Soft tissues: There is a small fat filled right inguinal hernia. CT/CT abdomen pelvis w con* [id number] IMPRESSION: 1. Mildly distended loops of large and small bowel with air-fluid levels. This is a nonspecific finding but can be seen with an ileus/enterocolitis. Given lack of transition point as well as involvement of both large and small bowel, a bowel obstruction is felt to be less likely. 2. Please see above comments for additional details.
[2024-12-30 14:05] LABS: Alanine Aminotransferase 16 U/L (0-41); Albumin Level 4.2 g/dL (3.5-5.2); Alkaline Phosphatase 88 U/L (40-130); Anion Gap 15.3 (5-19); Aspartate Amino Transferase 18 U/L (0-40); Blood Urea Nitrogen 4 mg/dL (8-23); Calcium 9.6 mg/dL (8.5-10.5); Carbon Dioxide 26 mmol/L (22-29); Chloride 96 mmol/L (98-107); Creatinine Clr Calc Pharmacy 84.5583; Globulin 2.8 g/dL (1.3-4.6); Glucose 65 mg/dL (65-115); Lipase 8 U/L (13-60); Osmolality Calculated 271 mOsm/kg (285-295); Potassium 4.3 mmol/L (3.5-5.1); Sodium 133 mmol/L (136-145); Total Protein 7.0 g/dL (6.6-8.7)
[2024-12-30] MEDS: Fleet Enema 133 mL Enema PR (14:12)
[2024-12-30] MEDS: lactulose oral liq 20 gm/30 mL UDC 30 GM PO (14:12)
[2024-12-30] MEDS: iohexol 350 mg/mL 500 mL Btl (per mL) IV (14:41)
[2024-12-30 15:02] VITALS: BP 144/74; O2SAT 92
[2024-12-30 16:04] VITALS: BP 151/72; PULSE 88; O2SAT 98
--- NOTE | 2025-01-02 08:47 | DCPLANNER ---
messaged gen surg for er f/u
== END 2024-12-30 16:04 | disposition home or self-care (01) ==
PROVIDERS: Emergency Provider Emergency Medicine; PCP Family Medicine
DX: K56.0 Paralytic ileus (principal); Z79.82 Long term (current) use of aspirin; Z79.4 Long term (current) use of insulin; Z79.02 Long term (current) use of antithrombotics/antiplatelets; Z87.891 Personal history of nicotine dependence; I25.10 Atherosclerotic heart disease of native coronary artery without angina pectoris; E11.42 Type 2 diabetes mellitus with diabetic polyneuropathy; Z85.51 Personal history of malignant neoplasm of bladder
CPT/HCPCS: 36415; 74018; 74177; 80053; 83690; 85025; 99285; J9999

== ENCOUNTER → 2025-01-02 08:44 | Outpatient (BNVA) | payer OTHER, SELFPAY | PROVIDERS: PCP Family Medicine; Visit Provider Student in an Organized Health Care Education/Training Program | DX: K56.0 Paralytic ileus (principal) | CPT/HCPCS: 99024 ==

== ENCOUNTER → 2025-02-04 10:16 | Outpatient (BNVA) | payer OTHER, SELFPAY | PROVIDERS: PCP Family Medicine; Visit Provider Internal Medicine | DX: E11.42 Type 2 diabetes mellitus with diabetic polyneuropathy (principal); E78.5 Hyperlipidemia, unspecified; E03.9 Hypothyroidism, unspecified; I73.9 Peripheral vascular disease, unspecified; Z79.4 Long term (current) use of insulin; Z79.84 Long term (current) use of oral hypoglycemic drugs | CPT/HCPCS: 99214 ==

== ENCOUNTER 2025-02-14 00:15 | Inpatient (IN) | payer OTHER, SELFPAY ==
--- OUTSIDE RECORDS SUMMARY | 2024-05-30 06:00 | XMS_ITS ---
Author Organization [facility] Address [address] [place] [address] Care Team Providers Care Distribution Analyst Name Role Phone Zulay-Shavonne ZAMORA MD Primary Care Provider Unav ailable Gastroenterology, [facility] Unavailable [phone] [place], Elsa Unavailable Unavailable Robert Phillips Unavailable [phone] REASON FOR VISIT [id number], Shortness of breath Encounters Encounter Location Date Provider Diagnosis [facility] [address] [place] [address] [place] [address] 05/30/2024 Robert Phillips Shortness of breath R06.02 ; Malignant neoplasm of upper lobe, right bronchus or lung C34.11 ; Former smoker Z87.891 and DINESH (obstructive sleep apnea) G47.33 Assessments Encounter Date Diagnosis (ICD Code) Assessment Notes Treatment Notes Treatment Clinical Notes Section Notes 05/30/2024 Shortness of breath (ICD-10 - R06.02) Patient was being treated for COPD in [place], [place]. Continue Albuterol HFA. Hold Stiolto. I will give him a sample of Trelegy and Breztri. -Obtain PFT and 6MW 05/30/2024 Malignant neoplasm of upper lobe, right bronchus or lung (ICD-10 - C34.11) Patient currenlty following Oncology in [place], [place]. Obtain repeat chest CT March 18, 2025. 05/30/2024 Former smoker (ICD-10 - Z87.891) Patient smoked 2 pcebe-jyn-fiz for 49 years. He has been abstinent [...] Patient was being treated for COPD in [place], [place]. Continue Albuterol HFA. Hold Stiolto. I will give him a sample of Trelegy and Breztri. -Obtain PFT and 6MW Malignant neoplasm of upper lobe, right bronchus or lung Patient currenlty following Oncology in [place], [place]. Obtain repeat chest CT March 18, 2025. Former smoker Patient smoked 2 pac ks-per-day for 49 years. He has been abstinent since he was 62 years old. DINESH (obstructive sleep apnea) Patient st ates he has sleep apnea and uses oxygen at night. Next Appt Details Provider Name:Dionisio mcduffie, 03/13/2025 11:30:00 AM, [address], [place], [address], History and Physical Notes * HPI (History of Present Illness) Category Sub-Category Detail Notes Category Not es Provider Note The patient is a 78-year-old male referred for evaluation and management of shortness of breath. He has seen a protection agent in [place] but that protection agent has left. 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 He has seen a protection agent in [place] but that protection agent has left. He has not had any [...] and PFT. * ROS: Bethany colvin of [facility] has been reviewed and scanned in by [...] lobe, right bronchus or lung Notes: Patient jeremy following Oncology in [place], [place]. Obtain repeat chest CT March 18, 2025. 3. F ormer smoker Notes:Patient smoked 2 hfqam-fxx-qzb for 49 years. He has been abstinent [...] Electronic signature of Deanna Phillips MD on 02/14/2025 at 12:18 AM CDT Sign off status: Pending * Provider: Edgar Phillips MD Date: 0 05/30/2024 Generated for Shawn payne/Chelsea/Naiitting on: 1 12:18 AM CDT
[2025-02-14] VITALS (48 sets, daily range): BP systolic 88–176; BP diastolic 55–140; PULSE 75–143; RESP 12–39; TEMP 36.6–37.9; O2SAT 86–99; BMI 28.9
--- OUTSIDE RECORDS SUMMARY | 2025-02-14 00:18 | XMS_ITS | Encounter Summary ---
Author Organization [employer] [facility] Address 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 Name Role Phone Unavailable Primary Care Provider Unavailabl e Encounter Details Date Type Department Care Team (Late Contact Info) Description 02/05/20[facility] [place] [employer] [facility] [employer] [facility] [address] [place] [address] Mireya Malave NP [address] [address] Social History Tobacco Use Types Packs/Day Years Used Date Smoking Tobacco: Former Cigarettes Q uit: 09/12/2006 Alcohol Use Standard Drinks/Week Comments Never 0 (1 standard drink = 0.6 oz pur e alcohol) Feeling Safe Answer Date Recorded Are you in a relationship wi th someone who hurts you emotionally and/or physically? 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
--- OUTSIDE RECORDS SUMMARY | 2025-02-14 00:18 | XMS_ITS | Patient Health Record ---
Author Organization [facility] Address [address] [place] [address] Care Team Providers Care Log Operations Coordinator Name Role Phone ZulayShavonne Regan MD Primary Care Provider Unav ailable Gastroenterology, [facility] Unavailable [phone] [place] [place] Unavailable Unavailable Robert Phillips Unavailable [phone] Jonas Caldwell Unavailable [phone] Allergies No Known Allergies Reason For Referral Reason malignant neoplasm o f upper lobe, bronchus of lung: [place] - Scheduled Diagnosis 1 Malignant neoplasm o f upper lobe, right bronchus or lung (C34.11) Referring Provider First Name Jose Antonio Faria Referring Provider Last Name IN Referring Provider [facility]erred Organization [facility] Referred Provider Robert Phillips Referred Address [address] JAIME Mark,[place], [place],[address], Referred Provider Specialty Pulmonary Di seases General Notes TremayneSvitlana 05/06 04:28:32 PM >04/25-JAYCE @ [facility] to get imaging info., Svitlana Casper 05/13/2024 03:37:02 PM >Email from Lucero @ [facility]- he is a cancer patient at [facility] oncology. Joanna in the cancer center at [facility] states they can cloud share to you guys but Jessica has to do it. She will be returning on Monday05/20/2024. He's had CT chests in 04/07, Pet08/05, more CTs of chest done 12/[address] on 08/04 that will all be sent over as next week., Tremayne Svitlana 05/20/2024 04:31:35 PM >Images received via [employer]., Svitlana Casper 05/20/2024 04:53:40 PM >LVM for 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 Arvind will be there mid-January and will take general Pulmonary once she is credentialed., Nathaly Melo 01/15/2025 04:24:13 PM CDT > Patient has appointment next week and they are needing a [facility] RFS. 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) Diagnosis 2 DINESH (obstructive sle ep apnea) (G47.33) Diagnosis 3 Malignant neoplasm o f upper lobe, right bronchus or lung (C34.11) Referring Provider First Name Jose Antonio pham Referring Provider Last Name [facility] Referring Provider Speciality [place] Referred Organization [facility] Referred Provider Robert Phillips Referred Address [address] [place] [address] [address],[place], [place],[address], Referred Provider Specialty Pulmonary Aimee damon Referral Priority Routine Medications Medication SIG (Take, [...] Date Status Comme nts Influenza (whole), CPT 63207 Inactive Unknown 03/01/2019 Administered Social History Tobacco [...] neoplasm of upper lobe, bronchus or lung (780947207) Malignant neoplasm of upper lobe, right bronchus or lung (C34.11) Active confirmed Problem Obstructive sleep apnea syndrome (28443269) DINESH (obstructive sleep apnea) (G47.33) Active confirmed Problem Chronic obstructive pulmonary disease (25901164) 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) Active confirmed Problem Chronic respiratory failure (86479613) Chronic hypoxic respiratory failure (J96.11) Active confirmed [...] N/A Encounters Encounter Location Date Provider Diagnosis [facility] [address] [place] [address] [place] [address] 10/17/2024 Robert Phillips Shortness of breath R06.02 ; Stage 2 moderate COPD by GOLD classification J44.9 ; Malignant neoplasm of upper lobe, right bronchus or lung C34.11 ; Former smoker Z87.891 ; DINESH (obstructive sleep apnea) G47.33 and Chronic cough R05.3 [facility] [address] [place] [address] [place] [address] 07/08/2024 Robert Phillips Shortness of breath R06.02 ; Stage 2 moderate COPD by GOLD classification J44.9 ; Malignant neoplasm of upper lobe, right bronchus or lung C34.11 ; Former smoker Z87.891 and DINESH (obstructive sleep apnea) G47.33 [facility] [address] [place] [address] [place] [address] 05/29/2024 Robert Phillips Shortness of breath R06.02 ; Malignant neoplasm of upper lobe, right bronchus or lung C34.11 ; Former smoker Z87.891 and DINESH (obstructive sleep apnea) G47.33 [facility] [address] [place] [address] [place] [address] 05/30/2024 Robert Phillips Shortness of breath R06.02 [facility] [address] [place] [address] [place] [address] 07/08/2024 Robert Phillips Shortness of breath R06.02 [facility] [address] [place] [address] [place] [address] 01/15/2025 Robert Phillips [facility] [address] [place] [address] [place] [address] 01/01/2025 Robert Phillips Stage 2 moderate VIDEO GAMES MECHANIC D by GOLD classification J44.9 ; Malignant neoplasm of upper lobe, right bronchus or lung C34.11 ; DINESH (obstructive sleep apnea) G47.33 and Chronic cough R05.3 [facility] [address] [place] [address] [place] [address] 08/05/2024 [facility] [address] [place] [address] [place] [address] 05/30/2024 [facility] [address] [place] [address] [place] [address] 03/27/2024 Jonas Caldwell [facility] [address] [place] [address] [place] [address] 02/11/2025 Robert Phillips Assessments Encounter Date Diagnosis (ICD Code) Assessment Notes Treatment Notes Treatment Clinical Notes Section Notes 01/01/2025 Stage 2 moderate COPD by GOLD classification (ICD-10 - J44.9) 10/17/2024 Shortness of breath (ICD-10 - R06.02) 05/29/2024 Malignant neoplasm of upper lobe, right bronchus or lung (ICD-10 - C34.11) Patient currenlty following Oncology in [place], [place]. Obtain repeat chest CT March 18, 2025. 05/29/2024 Shortness of breath (ICD-10 - R06.02) Patient was being treated for COPD in [place], [place]. Continue Albuterol HFA. Hold Stiolto. I will give him a sample of Trelegy and Breztri. -Obtain PFT and 6MW 05/30/2024 Shortness of breath (ICD-10 - R06.02) 07/08/2024 Shortness of breath (ICD-10 - R06.02) 01/01/2025 Malignant neoplasm of upper lobe, right bronchus or lung (ICD-10 - C34.11) 07/08/2024 Shortness of breath (ICD-10 - R06.02) 07/08/2024 Stage 2 moderate COPD by GOLD classification (ICD-10 - J44.9) Stage II COPD Continue Albuterol HFA. Continue Stiolto No benefit from Trelegy or Breztri. 07/08/2024 Malignant neoplasm of upper lobe, right bronchus or lung (ICD-10 - C34.11) Patient currenlty following Oncology in [place], [place]. Obtain repeat chest CT March 18, 2025. 10/17/2024 Stage 2 moderate COPD by GOLD classification (ICD-10 - J44.9) Stage II COPD Continue Albuterol HFA. Continue Stiolto No benefit from Trelegy or Breztri. I told him he may take liquid Mucinex. 01/01/2025 DINESH (obstructive sleep apnea) (ICD-10 - G47.33) 05/29/2024 Former smoker (ICD-10 - Z87.891) Patient smoked 2 uczsc-wjx-sof for 49 years. He has been abstinent since he was 62 years old. 10/17/2024 Malignant neoplasm of upper lobe, right bronchus or lung (ICD-10 - C34.11) Patient ejremy following Oncology in [place], [place]. Obtain repeat chest CT March 2025. 10/17/2024 Former smoker (ICD-10 - Z87.891) Patient smoked 2 vchcr-ehf-cve for 49 years. He has been abstinent since he was 62 years old. 01/01/2025 Chronic cough (ICD-10 - R05.3) 05/29/2024 DINESH (obstructive sleep apnea) (ICD-10 - G47.33) Patient states he has sleep apnea and uses oxygen at night. 07/08/2024 Former smoker (ICD-10 - Z87.891) Patient smoked 2 jyyql-znm-aqv for 49 years. He has been abstinent since he was 62 years old. 07/08/2024 DINESH (obstructive sleep apnea) (ICD-10 - G47.33) Patient states he has sleep apnea and uses oxygen at night. 10/17/2024 DINESH (obstructive sleep apnea) (ICD-10 - G47.33) Patient states he has sleep apnea and uses oxygen at night. 10/17/2024 Chronic cough (ICD-10 - R05.3) He may take Mucinex BID 05/29/2024 Other Caitie, Nadiya Lujan am scribing for, and in the presence [...] Name Order Date CT Chest w/o Contrast diagnostic-[id number] 1 Next Appt Details Provider Name:Dionisio mcduffie, 03/13/2025 11:30:00 AM, [address], [place], [address], Insurance Providers Payer Name Payer Address Payer Phone Subscriber Number Group Number Insured Name Patient Relationship to Insured Coverage Start Date Coverage End Date [employer] [address] [place] [address] [id number] NOAH FUNEZ Self - patient is the insured Medical (General) History Medical History History ICD Code Chronic Obstructive Pulmonary Disease Coronary arteriosclerosis Diabetes mellitus Hyperlipidemia Problem:Hypertensive disorder, systemic arterial Sleep apnea Surgical History Surgery Date(Month/Year) Vascular calf leg 12.18.24 Heart 2023,2010 Vascular right leg 2021 Bladder 2007 Vascular 2020 Hospitalization History Reason Date(Month/Year) See Sx HX
--- OUTSIDE RECORDS SUMMARY | 2025-02-14 00:18 | XMS_ITS | Encounter Summary ---
Author Organization [facility] Address 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 Gender Identity Not on file Sexual Orientation Not on file documented as of this encounter Plan of Treatment Upcoming Encounters Date Type Department Care Team (Late Contact Info) Description 08/05/2025 2:30 PM CDT Office Visit [address] [place] [address] Mireya Malave NP [address] [place] [address] documented as of this encounter Procedures Procedure Name Priority Date/Time Associated Diagnosis Comments URINALYSIS MICROSCOPY ONLY Routine 02/05/2025 1:51 PM CDT Urinary retention documented in this encounter Results * (ABNORMAL) URINALYSIS MICROSCOPY ONLY (02/05/2025 1:51 PM CDT) WBC UA > OR = 60(A) < OR = 5 /HPF [facility] RBC UA NONE SEEN < OR = 2 /HPF [facility] EPITHELIAL CELLS, URINE NONE SEEN < OR = 5 /HPF [facility] BACTERIA UA MANY(A) NONE SEEN /HPF [facility] HYALINE CAST NONE SEEN NONE SEEN /LPF [facility] Comment: Test Performed at: [facility] [address] [place] [address] Ramakrishna Arteaga Urine URINE SPECIMEN OBTAINED BY CLEAN CATCH PROCEDURE / Unknown 02/05/2025 1:51 PM CDT 02/05/2025 5:27 PM CDT us Mireya Malave PATIENT TRANSPORTATION DRIVER URINE ORDERABLES Final Resul t [facility] [phone] [facility] [address] [place] [address] documented in this encounter Visit Diagnoses Diagnosis Urinary retention Retention of urine, unspecified documented in this encounter
--- OUTSIDE RECORDS SUMMARY | 2025-02-14 00:19 | XMS_ITS | Clinical Summary ---
Author Organization [facility] Address [address] [place] [address] Phone Care Team Providers Care Dryerman/Woman Name Role Phone Unavailable Primary Care Provider [...] 2.5 mg by mouth 2 times daily. 1 Active metoclopramide HCl (REGLAN) 5 mg tablet Take 1-2 Tablets (5-10 mg) by mouth 4 times daily as needed for Nausea/Emesis. 30 Tablet 5 Active tamsulosin (Flomax) 0.4 mg capsule Take 1 Capsule (0.4 mg) by mouth daily. 60 Capsule 11 5 Active nitrofurantoin (MACROBID) 100 mg capsule Take 1 Capsule (100 mg) by mouth 2 times daily for 7 days. 14 Capsule 5 02/19/20 25 Active Active Problems Problem Noted Date Diagnosed Date PAD (peripheral artery disease) 12/15/2020 Resolved Problems Problem Noted Date Diagnosed Date Resolved Date Arteriovenous fistula 10/01/20202020 Compartment syndrome of right lower extremity 10/02/19 21 12/15/2020 Atherosclerosis of [place] ar teries of extremity with rest pain 10/01/2020 12/15/2020 Encounters Date Type Department Care Team Description 02/10/2025 Results Follow-Up [address] [place] [address] Mireya Malave NP POC URINALYSIS DIPSTICK AUTOMATED, MISCELLANEOUS LAB TEST 02/05/2025 1:00 PM CDT Office Visit [address] [place] [address] Mireya Malave NP Urinary retention (Primary Dx) 02/05/2025 Orders Only [address] [place] [address] Mishel Blake Urinary retention 02/05/[address] [place] [address] Mireya Malave NP 02/04/2025 External Device Data STL ABSTRACTION Provider, Abstract 02/04/2025 External Device Data STL ABSTRACTION Provider, Abstract 02/04/2025 External Device Data STL ABSTRACTION Provider, Abstract 01/08/2025 11:30 AM CDT Office Visit [facility] [place] [phone] Mireya Malave NP Urinary retention (Primary Dx) 01/08/2025 External Device Data STL ABSTRACTION Provider, Abstract 01/07/2025 External Device Data STL ABSTRACTION Provider, Abstract 01/07/2025 External Device Data STL ABSTRACTION Provider, Abstract 01/03/2025 11:31 AM CDT - 01/03/2025 6:04 PM CDT Emergency [facility] Emergency Department [address] [place] [phone] Helio Frazier MD Urinary retention (Primary Dx); Ileus ([facility]/HCC) Discharge Disposition: Home or Self Care 01/03/2025 Travel from Last 3 Months Social History Tobacco Use Types Packs/Day Years [...] on file 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 Gender Identity Not on file Sexual Orientation Not on file Last Filed Vital Signs Vital Sign Reading Time Taken Comments Blood Pressure 135/67 01/03/2025 1:15 PM CDT Pulse 103 01/03/2025 5:00 PM CDT Temperature 36.4 C (97.6 F) 01/03/2025 9:51 AM CDT Respiratory Rate 16 01/03/2025 5:00 PM CDT Oxygen Saturation 94% 01/03/2025 5:00 PM CDT Inhaled Oxygen Concentration - - Weight 90.7 kg (200 lb) 01/03/2025 9:51 AM CDT Height 177.8 cm (5' 10 ) 01/03/2025 9:51 AM CDT Body Mass Index 28.7 01/03/2025 9:51 AM CDT Plan of Treatment Upcoming Encounters Date Type Department Care Team (Late st Contact Info) Description 08/05/2025 2:30 PM CDT Office Visit [facility] [place] [address] [place] [address] Mireya Malave NP [address] [place] [address] Health Maintenance Due Date Last Done Comments DIABETES ANNUAL FOOT EXAM 1962 DIABETES ANNUAL RETINAL EXAM 1962 DIABETES MICROALBUMIN ANNUAL SCREEN 1962 LDL CHOLESTEROL ANNUAL 1962 Traditional Medicare (ACO) A nnual Wellness Visit 10/06/1963 RSV VACCINE (60+ or ) (1 - 1-dose 75+ series) 10/06/2019 INFLUENZA VACCINE (#1) 2024 , 02/15/2023, 02/23/2022, Additional history exists COVID-19 Vaccine (3 - 2024-2 6 season) 2025 02/23/2022, 08/06/2020 DIABETES HBA1C Q 6 MONTHS 06/18/2025 12/16/2024 DTAP/TDAP/TD VACCINES (2 - T d or Tdap) 02/18/2029 02/18/2019 PNEUMOCOCCAL VACCINE 50+ YEARS Completed 1 , 08/06/2014, 12/14/2007 ZOSTER VACCINE Completed 07/30/2018, 01/13, 05/16/2014 Medical Devices Implanted Type Area Equipment Mechanic Specialist Device Identifier Shelf Expiration Date Model / Serial / Lot Angio-Seal Vip Closure Dev [id number] - [id number] Implanted:Qty: 1 on 10/01/2020 Closure Device Right: Groin [employer]IDA [employer] 07/12/2021 [id number] / / [id number] Stent Synergy Mr 4.0x32mm Drug [place] [id number] - [id number] Implanted:Qty: 1 on 10/01/2020 by Joseph Montalvo MD Stent Right: Leg [employer] 01/28/2022 [id number] / / [id number] Stent Vasc Alva [id number] - [id number] Implanted:Qty: 1 on 10/01/2020 Stent Right: Leg [employer] 01/30/2022 [id number] / / [id number] Stent Viabahn Hep [id number] - [id number] Implanted:Qty: 1 on 10/01/2020 Stent Right: Leg [employer] 07/20/2023 [id number] / [id number] / Procedures Procedure Name Priority Date/Time Associated Diagnosis Comments URINALYSIS MICROSCOPY ONLY Routine 02/05/2025 1:51 PM CDT Urinary retention MISCELLANEOUS LAB TEST Routine 1:24 PM CDT Urinary retention POC URINALYSIS DIPSTICK AUTOMATED Routine 02/05/2025 1:17 PM CDT POC GLUCOSE Stat 01/03/2025 5:29 PM CDT POC GLUCOSE Stat 01/03/2025 3:23 PM CDT POC GLUCOSE Stat 01/03/2025 2:[address] ABDOMEN PELVIS W CONTRAST Stat 01/03/2025 1:44 PM CDT EXTRA TUBE (URINE BLANCHARD) Stat 01/03/2025 10:21 AM CDT URINALYSIS W/REFLEX MICROSCOPIC Stat 01/03/2025 10:21 AM CDT LIPASE Stat 01/03/2025 10:16 AM CDT COMPREHENSIVE METABOLIC PANEL Stat 01/03/2025 10:16 AM CDT CBC WITH DIFFERENTIAL Stat 01/03/2025 10:16 AM CDT from Last 3 Months Results * (ABNORMAL) URINALYSIS MICROSCOPY ONLY (02/05/2025 1:51 PM CDT) WBC UA > OR = 60(A) < OR = 5 /HPF [facility] RBC UA NONE SEEN < OR = 2 /HPF [facility] EPITHELIAL CELLS, URINE NONE SEEN < OR = 5 /HPF [facility] BACTERIA UA MANY(A) NONE SEEN /HPF [facility] RRL HYALINE CAST NONE SEEN NONE SEEN /LPF [facility] Diagnostics-S [facility] RRL Comment: Test Performed at: [facility] [address] [place] [address] Ramakrishna Arteaga Urine URINE SPECIMEN OBTAINED BY CLEAN CATCH PROCEDURE / Unknown 02/05/2025 1:51 PM CDT 02/05/2025 5:27 PM CDT Mireya Malave SECURITY INSPECTOR URINE ORDERABLES Final Resul t Performing Organization Address City/[facility] Co de Phone Number [facility] [phone] [facility] [address] [place] [address] * MISCELLANEOUS LAB TEST (02/05/2025 1:24 PM CDT) Other, specify 02/05/2025 1: 24 PM CDT Mireya Malave SECURITY INSPECTOR CHEMISTRY ORDERABLES Final R esult Performing Organization Address City/[facility] Co de Phone Number [facility] [phone] * (ABNORMAL) POC URINALYSIS DIPSTICK AUTOMATED (02/05/2025 1:17 PM CDT) COLOR UA Yellow Pale to Dark Yellow 02/05/2025 1:17 PM CDT [facility] CL[facility]ITY UA Cloudy(A) Clear 02/05/2025 1:17 PM CDT [facility] GLUCOSE UA Negative Negative 02/05/2025 1:17 PM CDT [facility] BILIRUBIN UA Negative Negative 02/05/2025 1:17 PM CDT [facility] KETONES UA Negative Negative 02/05/2025 1:17 PM CDT [facility] BLOOD UA Negative Negative 02/05/2025 1:17 PM CDT [facility] PH UA 7.0 5.0 - 8.0 02/05/2025 1:17 PM CDT [facility] PROTEIN UA Negative Negative 02/05/2025 1:17 PM CDT [facility] UROBILINOGEN UA 2.0(A) <2.0 mg/dL 1:17 PM CDT [facility] NITRITE UA Positive(A) Negative 02/05/2025 1:17 PM CDT [facility] LEUKOCYTE ESTERASE UA 3+(A) Negative 02/05/2025 1:17 PM CDT [facility] SPECIFIC GRAVITY UA POC 1.015 1.000 - 1.030 02/05/2025 1:17 PM CDT [facility] Urine 02/05/2025 1:17 PM CDT 02/05/2025 1:19 PM CDT Narrative [facility] - 02/05/2025 1:17 PM CDT Recommend Urine Microcopic ([id number])and Urine Culture ([id number]) if indicated. us Mireya Malave NP POINT OF CARE TESTING Final Result [id number] [address] [place] [address], * POC GLUCOSE (01/03/2025 5:29 PM CDT) Only the most recent of3 resultswithin the time period is included. GLUCOSE POC 89 74 - 99 mg/dL 01/03/2025 5:29 PM CDT [facility] SPECIMEN SOURCE, GLUCOSE POC Capillary 01/03/2025 5:29 PM CDT [facility] Blood, whole 01/03/2025 5:29 PM CDT 01/03/2025 5:56 PM CDT us Helio Frazier MD POINT OF CARE TESTING Final Re sult [facility] # [id number] [address] [facility] [place] [address] * CT ABDOMEN PELVIS W CONTRAST (01/03/2025 1:44 PM CDT) Anatomical Region Laterality Modality Abdomen Computed Tomogra phy 01/03/2025 1:44 PM CDT Impressions 01/03/2025 1:56 PM CDT IMPRESSION: Please see below. Exam: CT ABDOMEN PELVIS W CONTRAST Date/Time of Exam: 01/03/2025 1:44 PM Reason For Exam: Abdominal pain, acute, nonlocalized. Diagnosis: See Reason for Exam. Technique: Axial tomograms obtained through the abdomen and pelvis with Isovue 300 intravenous contrast, 75 mL. Findings: Imaged lung bases unremarkable. No ascites or free air. Dilated bladder otherwise unremarkable with moderate prostatomegaly. Redundant colon. Dilated segments of colon within both sides of upper abdomen with air-fluid levels. No defined transition region of bowel. Appendix is mildly distended with fluid and appendicoliths. No periappendiceal inflammatory change. No aneurysm of abdominal aorta. No central retroperitoneal lymphadenopathy by size criteria. Liver and gallbladder unremarkable. Spleen unremarkable. Mild cortical scarring of right kidney. No hydronephrosis of either kidney. Pancreas and adrenals within normal limits. Minimal hiatal hernia. No concerning skeletal pathology. IMPRESSION: Features of bowel ileus. Other incidental findings as above. Narrative Procedure Note Dave Whitman MD - 01/03/2025 IMPRESSION: Please see below. Exam: CT ABDOMEN PELVIS W CONTRAST Date/Time of Exam: 01/03/2025 1:44 PM Reason For Exam: Abdominal pain, acute, nonlocalized. Diagnosis: See Reason for Exam. Technique: Axial tomograms obtained through the abdomen and pelvis with Isovue 300 intravenous contrast, 75 mL. Findings: Imaged lung bases unremarkable. No ascites or free air. Dilated bladder otherwise unremarkable with moderate prostatomegaly. Redundant colon. Dilated segments of colon within both sides of upper abdomen with air-fluid levels. No defined transition region of bowel. Appendix is mildly distended with fluid and appendicoliths. No periappendiceal inflammatory change. No aneurysm of abdominal aorta. No central retroperitoneal lymphadenopathy by size criteria. Liver and gallbladder unremarkable. Spleen unremarkable. Mild cortical scarring of right kidney. No hydronephrosis of either kidney. Pancreas and adrenals within normal limits. Minimal hiatal hernia. No concerning skeletal pathology. IMPRESSION: Features of bowel ileus. Other incidental findings as above. Mireya Akins PA-C CT ORDERABLES Final Result * EXTRA TUBE (URINE BLANCHARD) (01/03/2025 10:21 AM CDT) Urine URINE SPECIMEN OBTAINED BY CLEAN CATCH PROCEDURE / Unknown Collection / Unknown 01/03/2025 10:21 AM CDT 01/03/2025 10:33 AM CDT Mireya Akins PA-C URINE ORDERABLES Yana l Result [facility] CLIA # [id number] [address] [place] [address] * URINALYSIS WITH REFLEX MICROSCOPIC (01/03/2025 10:21 AM CDT) COLOR UA Pale Yellow Pale to Dark Yellow 01/03/2025 10:43 AM CDT [facility] G-Snap! [facility] CLARITY UA Clear Clear 01/03/2025 10:43 AM CDT [facility] SPECIFIC GRAVITY UA 1.010 1.003 - 1.035 01/03/2025 10:43 AM T [facility] PH UA 7.5 5.0 - 8.0 01/03/2025 10:43 AM T [facility] LEUKOCYTE ESTERASE UA Negative Negative 01/03/2025 10:43 AM T [facility] NITRITE UA Negative Negative 01/03/2025 10:43 AM CDT [facility] PROTEIN UA Negative Negative 01/03/2025 10:43 AM CDT [facility] GLUCOSE UA Negative Negative 01/03/2025 10:43 AM CDT [facility] KETONES UA Negative Negative 01/03/2025 10:43 AM CDT [facility] UROBILINOGEN UA <2.0 <2.0 mg/dL 10:43 AM CDT [facility] BILIRUBIN UA Negative Negative 01/03/2025 10:43 AM CDT [facility] BLOOD UA Negative Negative 01/03/2025 10:43 AM CDT [facility] Urine URINE SPECIMEN OBTAINED BY CLEAN CATCH PROCEDURE / Unknown Collection / Unknown 01/03/2025 10:21 AM CDT 01/03/2025 10:33 AM CDT us Mireya Akins PA-C URINE ORDERABLES Yana l Result [facility] CLIA # [id number] [address] [place] [address] * (ABNORMAL) CBC WITH DIFFERENTIAL (01/03/2025 10:16 AM CDT) WBC 9.5 4.8 - 10.8 K/uL 01/03/2025 10:37 AM T [facility] RBC 4.49(L) 4.60 - 6.20 M/uL 01/03/2025 10:37 AM T [facility] HEMOGLOBIN 13.3(L) 14.0 - 18.0 g/dL 01/03/2025 10:37 AM CDT [facility] HEMATOCRIT 39.9(L) 41.0 - 53.0 % 01/03/2025 10:37 AM T [facility] MCV 88.9 84.0 - 103.0 fL 01/03/2025 10:37 AM CDT [facility] MCH 29.6 27.0 - 34.0 pg 01/03/2025 10:37 AM [facility] MCHC 33.3 30.0 - 35.0 g/dL 01/03/2025 10:37 AM [facility] PLATELETS 319 140 - 440 K/uL 01/03/2025 10:37 AM [facility] MPV 8.2(L) 8.9 - 12.8 fL 01/03/2025 10:37 AM [facility] RDW 13.5 11.0 - 14.5 % 01/03/2025 10:37 AM [facility] G-Snap! [facility] RDW-STDEV 44.3 37.0 - 54.0 fL 01/03/2025 10:37 AM [facility] NEUTROPHILS 72 42 - 75 % 01/03/2025 10:37 AM [facility] LYMPHOCYTES 12(L) 24 - 44 % 01/03/2025 10:37 AM [facility] MONOCYTES 8 2 - 10 % 01/03/2025 10:37 AM [facility] EOSINOPHILS 8(H) 0 - 7 % 01/03/2025 10:37 AM [facility] BASOPHILS 1 0 - 1 % 01/03/2025 10:37 AM [facility] IMMATURE GRANULOCYTES 0 0 - 2 % 01/03/2025 10:37 AM [facility] NEUTROPHIL ABSOLUTE 6.80 2.00 - 8.00 K/uL 01/03/2025 10:37 AM [facility] LYMPHOCYTE ABSOLUTE 1.16(L) 1.20 - 4.00 K/uL 01/03/2025 10:37 AM [facility] MONOCYTE ABSOLUTE 0.71(H) 0.10 - 0.60 K/uL 01/03/2025 10:37 AM [facility] EOSINOPHIL ABSOLUTE 0.74(H) 0.00 - 0.70 K/uL 01/03/2025 10:37 AM [facility] BASOPHILS ABSOLUTE 0.07 0.00 - 0.20 K/uL 01/03/2025 10:37 AM CDT [facility] IMMATURE GRANULOCYTES ABSOLUTE 0.03 0.00 - 0.10 K/uL 01/03/2025 10:37 AM CDT [facility] SMEAR REVIEWED: NA - Not Applicable 01/03/2025 10:37 AM CDT [facility] Blood Venipuncture / Unknown 01/03/2025 10:16 AM CDT 01/03/2025 10:33 AM CDT Mireya Akins PA-C HEMATOLOGY ORDERABLES Final Result Performing Organization Address City/[facility]/ZIP Co de Phone Number [facility] CLIA # [id number] [address] [id number] * (ABNORMAL) LIPASE (01/03/2025 10:16 AM CDT) Pathologist [facility] LIPASE 9(L) 13 - 60 U/L 01/03/2025 11:30 AM CDT [facility] Blood Venipuncture / Unknown 01/03/2025 10:16 AM CDT 01/03/2025 10:33 AM CDT Mireya Akins PA-C CHEMISTRY ORDERABLES Final Result [facility] CLIA # [id number] [address] [address] * (ABNORMAL) COMPREHENSIVE METABOLIC PANEL (01/03/2025 10:16 AM CDT) Pathologist [facility] SODIUM 130(L) 136 - 145 mmol/L 01/03/2025 11:49 AM CDT [facility] POTASSIUM 4.4 3.5 - 5.1 mmol/L 01/03/2025 11:49 AM CDT [facility] CHLORIDE 95(L) 98 - 107 mmol/L 01/03/2025 11:49 AM [facility] CO2 24 22 - 29 mmol/L 01/03/2025 11:49 AM [facility] CALCIUM 9.4 8.8 - 10.2 mg/dL 01/03/2025 11:49 AM [facility] BUN 5(L) 8 - 23 mg/dL 01/03/2025 11:49 AM [facility] CREATININE 0.69 0.67 - 1.17 mg/dL 01/03/2025 11:49 AM [facility] Comment:The GFR result is no t clinically significant on patients <18 or >70 years of age. GLUCOSE 96 74 - 99 mg/dL 01/03/2025 11:49 AM [facility] TOTAL PROTEIN 6.9 6.4 - 8.3 g/dL 01/03/2025 11:49 AM [facility] ALBUMIN 4.0 3.5 - 5.2 g/dL 01/03/2025 11:49 AM [facility] BILIRUBIN TOTAL 0.4 0.0 - 1.0 mg/dL 01/03/2025 11:49 AM [facility] ALKALINE PHOSPHATASE 98 40 - 129 U/L 01/03/2025 11:49 AM [facility] AST 15 10 - 50 U/L 01/03/2025 11:49 AM [facility] ALT 12 <=50 U/L 01/03/2025 11:49 AM [facility] GFR >60 mL/min/1.7 3 sq meter 01/03/2025 11:49 AM [facility] Comment:eGFR calculated with 2020 CKD-EPI equation. Vegetarian diet, extremely high or low muscle mass, and may affect results. Cystatin C with Glomerular Filtration Rate is a suitable alternative for these patients. ANION GAP 11 9 - 20 mmol/L 01/03/2025 11:49 AM [facility] Blood Venipuncture / Unknown 01/03/2025 10:16 AM CDT 01/03/2025 10:33 AM CDT Mireya Akins PA-C CHEMISTRY ORDERABLES Final Result [facility] [id number] [address] [address] [place] [address] from Last 3 Months Insurance MEDICARE PART A AND B * Guarantor: MARBIN FUNZE Account Type Relation to Patient Date of Phone Billing Address Personal/Family [address] [place] [address] RX [employer] RX Member Subscriber Plan / Payer (Ef fective for All Dates) Name:Marbin Funez Relation to Subscriber:Self Name:Vivek Funezlobo Jane Payer ID:Not on file Type:RX Commercial Address: [place] * Guarantor: OLD 2020 [employer]) Account Type Relation to Patient Date of Phone Billing Address Corporate Other DEFAULT ADDRESS [address] CCN [employer] Member Subscriber Plan / Payer (Ef fective 2020-Present) Name:Marbin Funez Relation to Subscriber:Self Name:Marbin Funez Payer ID:Not on file Group ID:Not on file Type:[place] Address: [place] [id number] [place] [address] [employer] Member Subscriber Plan / Payer (Ef fective 2020-) Name:Marbin Funez Relation to Subscriber:Self Name:Marbin Funez Payer ID:Not on file Group ID:Not on file Type:[place] Address: [place] [id number]
--- OUTSIDE RECORDS SUMMARY | 2025-02-14 00:19 | XMS_ITS | Clinical Summary ---
Author Organization [facility] Address [address] [place] [address] Phone Care Team Providers Care Contractor Field Hauling Name Role Phone Unavailable Primary Care Provider [...] syndrome of right lower extremity Atherosclerosis of [place] ar teries of extremity with rest pain [...] (#1) 2024 Medical Devices Implanted Type Area Rn Cardiovascular Icu Device Identifier Shelf Expiration Date Model / Serial / Lot Angio-Seal Vip Closure Dev [id number] - [id number] Implanted:Qty: 1 on 10/01/2020 at [facility] Closure Device Right: Groin [employer] 07/12/2021 [id number] / / [id number] Stent Viabahn Hep [id number] - [id number] Implanted:Qty: 1 on 10/01/2020 at [facility] Stent Right: Sol Medeiros [employer] 07/20/2023 [id number] / [id number] / Stent Synergy Mr 4.0x32mm Drug [place] [id number] - [id number] Implanted:Qty: 1 on 10/01/2020 by Joseph Montalvo MD at [facility] Stent Right: Leg [employer] 01/28/2022 [id number] / / [id number] Stent Vasc Alva [id number] - [id number] Implanted:Qty: 1 on 10/01/2020 at [facility] Stent Right: Leg [employer] 01/30/2022 [id number] / / [id number] Insurance MEDICARE PART A AND B RX [employer] RX Member Subscriber Plan / Payer (Ef fective for All Dates) Name:RandycarissaMarbin Relation to Subscriber:Self Name:ENMA FUNEZJANAE CORDERO Payer ID:Not on file Type:RX Commercial Address: [place] [employer] [facility] [place] [id number] Advance Directives For more information, please contact: [phone] * Full Code (Latest Code Status on File) Date Activated Date Inactivated Comments 10/01/2020 11:52 AM 10/03/2020 7:18 PM
--- OUTSIDE RECORDS SUMMARY | 2025-02-14 00:19 | XMS_ITS | Encounter Summary ---
Author Organization [facility] Address [address] [place] [address] Care Team Providers Care Cytogenetic Technologist Name Role Phone Unavailable Primary Care Provider Unavailabl e Reason for Referral * PET Scan (Urgent) - Closed Specialty Diagnoses / Procedures Referred By Contac t Referred To Contact Radiology Diagnoses Malignant neoplasm of upper lobe, right bronchus or lung Procedures PET TUMOR IMG W CT SKL BSE MID THG Nuno Campbell MD [address] [place] [phone] Phone: tel: fax: [facility] [address] [place] [phone] Phone: tel: fax: Referral ID Status Reason Start Date Expiration Date V isits Requested Visits Authorized [id number] Closed [facility] to Schedule 03/02/2020 04/02/2021 1 1 Encounter Details Date Type Department Care Team (Late st Contact Info) Description 03/02/2020 Ancillary Orders [facility] Pre-Registration [place] CALL TO MAKE APPOINTMENT ONLY [address] [place] [address] Nuno Campbell MD [address] [place] [phone] Malignant neoplasm of upper lobe, right bronchus [...] from Skull Base to Mid Thigh: Radiopharmaceutical: [id number] Dose: 13.2 mCi right forearm IV Time of Injection: 1335 hrs BMI: Not available Clinical Indication: Initial treatment strategy to evaluate malignant neoplasm of the right lung upper lobe for staging examination FDG (X-22-Mcmhqxlwqjovcqwana) PET imaging was performed at 1422 hrs [...] from Skull Base to Mid Thigh: Radiopharmaceutical: [id number] Dose: 13.2 mCi right forearm IV Time of Injection: 1335 hrs BMI: Not available Clinical Indication: Initial treatment strategy to evaluate malignant neoplasm of the right lung upper lobe for staging examination FDG (C-45-Somguldyefgvssbumr) PET imaging was performed at 1422 hrs [...] of upper lobe, right bronchus or lung Malignant neoplasm of upper lobe, right bronchus or lung documented in this encounter
--- OUTSIDE RECORDS SUMMARY | 2025-02-14 00:19 | XMS_ITS | Encounter Summary ---
Author Organization [facility] Address [address] [place] [address] Care Team Providers Care Household Refrigerator Mechanic Name Role Phone Unavailable Primary Care Provider Unavailabl e Reason for Visit * Reason Onset Date Comments Results 02/10/2025 Encounter Details Date Type Department Care Team (Latest Contact Info) Description 02/10/2025 Results Follow-Up [facility] [place] [address] [place] [address] Mireya Malave NP [address] [place] [address] POC URINALYSIS DIPSTICK AUTOMATED, MISCELLANEOUS LAB TEST Social History Tobacco Use Types Packs/Day Years [...] on file 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 Pt nearby. Informed both of results and abx. Educated pt on how totake. Both verbalized understanding. Macrobid order sent to pts preferred pharmacy. ----- Message from Mireya Malave sent at 02/10/2025 1:57 PM CDT ----- Urine culture positive. PT was not having symptoms when I saw him. Would recommend macrobid 100 mg BID for 7 days ----- Message ----- From: [facility], Background Sent: 02/05/2025 1:19 PM CDT To: Mireya Malave NP documented in this encounter Plan of Treatment Upcoming Encounters Date Type Department Care Team (Late st Contact Info) Description 08/05/2025 2:30 PM CDT Office Visit [facility] [place] [address] [facility] [address] [place] [phone] Mireya Malave NP [address] [facility] [address] [place] [id number] documented as of this encounter Visit Diagnoses Not on filedocumented in this encounter
--- NOTE | 2025-02-14 00:24 | XRR_ITS ---
PROCEDURE INFORMATION: Exam: XR Chest Exam date and time: 02/14/2025 12:27 AM Age: 79 years old Clinical indication: Fever; Additional info: Possible sepsis TECHNIQUE: Imaging protocol: Radiologic exam of the chest. Views: 1 view. COMPARISON: CT chest w con* [id number] 03/18/2024 1:04 PM FINDINGS: Lungs: Bilateral hilar atelectasis versus infiltrate. Emphysematous changes. Pleural spaces: Unremarkable. No pleural effusion. No pneumothorax. Heart/Mediastinum: Cardiomegaly. Bones/joints: Unremarkable. XR/XR chest 1V portable [id number] IMPRESSION: 1. Bilateral hilar atelectasis versus infiltrate. 2. Cardiomegaly. 3. Emphysematous changes.
--- NOTE | 2025-02-14 00:25 | ECG_ITS ---
[facility] Test Date: 2025-02-14 Pat Name: Marbin Funez Department: Room: Gender: Male Care Tech: : 1945 Requested By: Jose Osei Order Number: [id number] Rony MD: Sharif Arias M.D. Measurements Intervals [place] Rate: 139 P: 0 ID: 0 QRS: 79 QRSD: 94 T: 72 QT: 275 QTc: 419 Interpretive Statements ATRIAL FIBRILLATION WITH RAPID VENTRICULAR RESPONSE NONSPECIFIC ST & T-WAVE ABNORMALITY ABNORMAL RHYTHM ECG Compared to ECG 12/18/2024 08:29:17 T-wave abnormality now present Sinus rhythm no longer present Electronically Signed On 02-15-2025 14:38:27 CDT by Sharif Arias M.D. [email or web address] [id number]
--- NOTE | 2025-02-14 00:28 | W.ED.WEAKNES ---
HPI - Weakness General: Chief complaint: Weakness Stated complaint: Weakness, Tremors, Fever History of Present Illness: 79 yo M with recent UTI diagnosed by urology presents via EMS for several hours of shaking chills, weakness, and fever. Reports cough a lot, chronic COPD, and history of cancer (patient references bladder cancer stage 4 and lung cancer stage 2?3; staging unclear). Denies prior atrial fibrillation but EKG today reportedly shows new AF. Notes severe back pain starting in the small of the back radiating up to the shoulder; right-sided flank pain endorsed. Took acetaminophen (Tylenol) around 5 pm (two capsules). Multiple ER visits in the past week without clear diagnosis. Provider notes concern for ascending urinary infection. states that the [facility] is taking Mac[facility]. Related Data Home Medications ?Medication ?Instructions ?Recorded ?Confirmed aspirin 81 mg tablet,delayed 81 mg PO DAILY@12 09/18/19 02/03/25 release cholecalciferol (vitamin D3) 25 25 mcg PO DAILY@0730 09/18/19 02/03/25 mcg (1,000 unit) capsule cetirizine 10 mg tablet 10 mg PO DAILY 10/07/21 02/03/25 isosorbide mononitrate 60 mg 90 mg PO QAM 10/07/21 02/03/25 tablet,extended release 24 hr multivitamin 1 tab PO DAILY 10/07/21 02/03/25 levothyroxine 75 mcg tablet 150 mcg PO DAILY 12/07/21 02/03/25 insulin glargine 100 unit/mL (3 40 unit SUBCUT DAILY see pharmacy 01/14/22 02/03/25 mL) subcutaneous pen comments cilostazol 50 mg tablet 100 mg PO BID 09/15/22 02/03/25 polyethylene glycol 3350 17 gram 17 g PO DAILY 10/13/22 02/03/25 oral powder packet (Miralax) albuterol sulfate 90 mcg/actuation 1 inh inhalation QID 02/20/24 02/03/25 aerosol inhaler Solu-Medrol (PF) 210 mg PO DIRECTED 12/17/24 02/03/25 insulin aspart U-100 100 unit/mL 20 unit SUBCUT TID 12/17/24 02/03/25 (3 mL) subcutaneous pen (Novolog FlexPen U-100 Insulin aspart) urea 40 % topical cream 1 applic topical PRN 12/17/24 02/03/25 Previous Rx's ?Medication ?Instructions ?Recorded Sole supports #1 ea 09/18/19 Custom orthotics #1 ea 11/20/19 Diabetic shoes with custom inserts #1 ea 12/08/20 Diabetic Shoes with 3 sets of #1 ea 11/08/21 insoles glucagon 1 mg solution for 1 mg SUBCUT Q20M PRN hypoglycemia 11/23/21 injection (Glucagon Emergency Kit) #1 ea hydrocortisone 2.5 % topical cream 1 applic topical BID #30 grams 02/01/22 atorvastatin 80 mg tablet 40 mg (1/2 x 80 mg) PO QPM #45 tabs 04/06/22 triamcinolone acetonide 0.025 % 1 applic topical BID #60 mL 11/02/22 lotion guaifenesin 600 mg tablet, 600 mg PO .three times week #90 11/24/22 extended release 12 hr tabs mometasone 100 mcg/actuation HFA 1 puff inhalation BID #13 grams 10/12/23 aerosol inhaler clopidogrel 75 mg tablet 75 mg PO DAILY #90 tabs 03/07/24 2 Pairs of Custom Molded Orthotics #1 ea 03/15/24 A5514 blood-glucose,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,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 #1 ea 06/17/24 (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) diabetic shoes with custom inserts #1 ea 09/09/24 blood-glucose sensor (Dexcom G7 #3 ea 10/15/24 Sensor device) metformin 500 mg tablet,extended 500 mg PO BID #180 tabs 10/15/24 release 24 hr losartan 50 mg tablet See Rx Instructions .Route 11/07/24 .COMPLEX #135 tabs Diabetic Shoes with 3 inserts #1 ea 12/09/24 peg 3350-electrolytes 236 240 ml PO Q10M #4,000 mL 12/26/24 gram-22.74 gram-6.74 gram-5.86 gram solution (Golytely) gabapentin 100 mg capsule See Rx Instructions .Route 01/23/25 .COMPLEX #270 caps Allergies Allergy/AdvReac Type Severity Reaction Status Date / Time No Known Allergies Allergy Verified 01/02/25 08:51 PFS ED PFSH: Medical History (Updated 02/14/25 @ 01:31 by Jose Cherry MD) Atherosclerosis of coronary artery Lung nodule Type 2 diabetes mellitus with diabetic polyneuropathy Bladder cancer PVD (peripheral vascular disease) Surgical History Port-A-Cath in place (04/01/20) H/O esophagogastroduodenoscopy (04/01/20) History of bronchoscopy History of bladder surgery History of surgical removal of pilonidal cyst H/O colonoscopy H/O heart artery stent Family History Other CAD (coronary artery disease) Cancer Diabetes Hyperlipidemia Hypertension Lung disease Denies family history of Clotting disorder Dementia Psychiatric illness Chronic kidney disease (CKD) Suicide Anesthesia complication Bleeding disorder Family history of premature coronary artery disease Stroke Social History Smoking and tobacco/nicotine status: never used tobacco/nicotine Quit status (tobacco/nicotine): has quit using Year quit tobacco: 06-17 PPD x 45 Years Alcohol intake: never Substance/Drug Use: never Lives independently: Yes Household members: spouse Marital status: service: Yes Current occupational status: retired Do you think of yourself as: Straight/Heterosexual Current gender identity: Male Physical Exam Const: COMMON NORMALS: no acute distress, patient oriented x3 and alert HENMT: COMMON NORMALS: normocephalic and atraumatic HEAD & SCALP: normocephalic and atraumatic Eye: COMMON NORMALS: Equal, round and reactive pupils present, EOMs intact bilaterally and no scleral icterus PUPIL: Yes Equal, round and reactive pupils present Resp: OTHER: Speaking in full sentences, mild wheezes and mild crackles at both lung bases. Cardio: OTHER: Tachycardic, irregularly irregular rhythm. No murmur. GI: COMMON NORMALS: Normal to inspection, nondistended, normoactive bowel sounds present, Soft to palpation and non-tender PALPATION: Yes Soft to palpation Extremity: OTHER: 1+ pitting edema of the legs Neuro: COMMON NORMALS: patient oriented x3 SENSORIUM/ORIENTATION: Yes alert Skin: COMMON NORMALS: no rashes or lesions noted GENERAL SKIN EXAM: no rashes or lesions noted Course Vital Signs: Vital signs: Vital Signs Temperature 100.3 F H 02/14/25 00:16 Pulse Rate 136 H 02/14/25 00:16 Respiratory Rate 20 H 02/14/25 00:16 Blood Pressure 163/85 02/14/25 00:16 Pulse Oximetry 94 02/14/25 01:36 Fraction of Inspir ed Oxygen 100 02/14/25 01:36 MDM - Weakness Medical Decision Making 79 yo M with recent UTI presents with fever, shaking chills, weakness, back/flank pain; denies prior AF but EKG shows new atrial fibrillation. History includes COPD, cancer (staging unclear), enlarged prostate, and heart failure. Vitals notable for HR 141, BP 160/85, RR 23, SpO2 91%. Physical exam shows warm to touch and right flank tenderness; rhythm irregularly irregular. Differential diagnosis centers on urosepsis likely from ascending UTI with possible pyelonephritis. Rigors attributed to sepsis per provider. New atrial fibrillation noted; heart failure history acknowledged. With new onset atrial fibrillation and fever and tachycardia, I suspected sepsis secondary to UTI. Weight-based bolus of normal saline was ordered to fulfill sepsis bundle. After receiving roughly 1.5 L of fluid, he became acutely short of breath, tachypneic, worsening crackles in the lungs, and very diaphoretic. I assume this is all due to acute fluid overload. He was placed on BiPAP and given nitroglycerin and responded well. ABG will be ordered. Urinalysis show evidence of infection and I again suspect this to be the primary source of his sepsis and likely the source for new onset atrial fibrillation. He will also be given Lasix to counteract fluid overload he was given an initial IV bolus of Cardizem as well as nitroglycerin patch on the chest. He will be admitted to the intensive care unit for further observation and antibiotics and fluid management Lab Data 02/14/25 00:00 02/14/25 00:00 Radiology Impressions Chest X-Ray 02/14/25 00:24 IMPRESSION: 1. Bilateral hilar atelectasis versus infiltrate. 2. Cardiomegaly. 3. Emphysematous changes. Laboratory Results WBC 17.22 10^3/uL (3.29-11.43) H 02/14/25 00:00 RBC 4.15 10^6/uL (3.85-5.65) 02/14/25 00:00 Hgb 11.90 g/dL (11.27-16.99) 02/14/25 00:00 Hct 36.6 % (37-53) L 02/14/25 00:00 MCV 88.2 fl (82-101) 02/14/25 00:00 MCH 28.7 pg (27-33) 02/14/25 00:00 MCHC 32.5 g/dL (30-55) 02/14/25 00:00 RDW 15.2 % (12.1-15.1) H 02/14/25 00:00 Plt Count 338 10^3/cmm (157-399) 02/14/25 00:00 MPV 8.8 fL (7.4-10.4) 02/14/25 00:00 Neut % (Auto) 86.4 % 02/14/25 00:00 Lymph % (Auto) 4.7 % 02/14/25 00:00 [place] % (Auto) 6.8 % 02/14/25 00:00 Eos % (Auto) 1.4 % 02/14/25 00:00 Baso % (Auto) 0.3 % 02/14/25 00:00 Neut # (Auto) 14.88 10^3/uL (1.8-7.7) H 02/14/25 00:00 Lymph # (Auto) 0.8 10^3/uL (0.8-4.8) 02/14/25 00:00 [place] # (Auto) 1.2 10^3/uL (0.2-0.9) H 02/14/25 00:00 Eos # (Auto) 0.2 10^3/uL (0.0-0.8) 02/14/25 00:00 Baso # (Auto) 0.1 10^3/uL (0.0-0.1) 02/14/25 00:00 Nucleated RBC % (auto) 0 % 02/14/25 00:00 Nucleated RBCs # 0.0 /100WBC 02/14/25 00:00 Sodium 136 mmol/L (136-145) 02/14/25 00:00 Potassium 4.2 mmol/L (3.5-5.1) 02/14/25 00:00 Chloride 96 mmol/L (98-107) L 02/14/25 00:00 Carbon Dioxide 24 mmol/L (22-29) 02/14/25 00:00 Anion Gap 20.2 (5-19) H 02/14/25 00:00 BUN 12 mg/dL (8-23) 02/14/25 00:00 Creatinine 0.6 mg/dL (0.7-1.2) L 02/14/25 00:00 GFR Calculation Not Reportable 02/14/25 00:00 Glucose 133 mg/dL (65-115) H 02/14/25 00:00 Calculated Osmolality 284 mOsm/kg (285-295) L 02/14/25 00:00 Lactic Acid 2.4 mmol/L (0.5-2.2) H 02/14/25 00:00 Calcium 9.5 mg/dL (8.5-10.5) 02/14/25 00:00 Total Bilirubin 0.3 mg/dL (0.15-1.2) 02/14/25 00:00 AST 13 U/L (0-40) 02/14/25 00:00 ALT 9 U/L (0-41) 02/14/25 00:00 Alkaline Phosphatase 111 U/L (40-130) 02/14/25 00:00 Troponin T Baseline 31 ng/L (0-15) H 02/14/25 00:00 Total Protein 6.9 g/dL (6.6-8.7) 02/14/25 00:00 Albumin 4.3 g/dL (3.5-5.2) 02/14/25 00:00 Globulin 2.6 g/dL (1.3-4.6) 02/14/25 00:00 Urine Color Yellow (Yellow) 02/14/25 01:00 Urine Appearance Clear (CLEAR) 02/14/25 01:00 Urine pH 7.0 (5-7) 02/14/25 01:00 Ur Specific [place] 1.013 (1.005-1.030) 02/14/25 01:00 Urine Protein Trace (Negative) A 02/14/25 01:00 Urine Glucose (UA) Trace (Normal) H 02/14/25 01:00 Urine Ketones 1+ (Negative) H 02/14/25 01:00 Urine Blood Negative (Negative) 02/14/25 01:00 Urine Nitrate Positive (Negative) A 02/14/25 01:00 Urine Bilirubin Negative (Negative) 02/14/25 01:00 Urine Urobilinogen 1.0 mg/dL (Negative) 02/14/25 01:00 Ur Leukocyte Esterase 1+ (Negative) A 02/14/25 01:00 Urine RBC 0-4 /hpf (0-2) H 02/14/25 01:00 Urine WBC 15-25 /hpf (0-5) H 02/14/25 01:00 Ur Squamous Epith Cells None /hpf (0-5) 02/14/25 01:00 Amorphous Sediment Not Reportable 02/14/25 01:00 Urine Bacteria 3+ /hpf (NONE) H 02/14/25 01:00 All radiology interpretation(s) finalized by discharge EKG Data EKG 1: Interpretation: Time?0017?atrial fibrillation with RVR, rate of 139, no ST segment elevation or depression, no T wave inversions, QTc = 356 Critical Care Time Critical Care Time: Critical Care Time: Yes Total Critical Care Time: 41 Attestation: This case had a high probability of a clinically significant, sudden, or life threatening deterioration of this patient's condition which required my full and direct attention, intervention and personal management. Discharge Plan Discharge Patient Disposition: Admitted As Inpatient Admit Provider: Mookie Ya Clinical Impression: Sepsis secondary to UTI, Atrial fibrillation with rapid ventricular response, Acute hypoxic respiratory failure Condition: Stable Coding Level of Care Code ED Clinical Admissions Manager for Carmen Rosas
[2025-02-14 00:40] LABS: Hematocrit 36.6 % (37-53); Hemoglobin 11.90 g/dL (11.27-16.99); Mean Corpuscular HGB Conc 32.5 g/dL (30-55); Mean Corpuscular Hemoglobin 28.7 pg (27-33); Mean Corpuscular Volume 88.2 fl (82-101); Nucleated Red Blood Cells % 0 %; Platelet Count 338 10^3/cmm (157-399); Red Blood Count 4.15 10^6/uL (3.85-5.65); White Blood Count 17.22 10^3/uL (3.29-11.43)
[2025-02-14 00:51] LABS: Troponin(5th) Baseline 31 ng/L (0-15)
[2025-02-14] MEDS: cefTRIAXone 2,000 mg SDV 2000 MG IVP (00:51)
[2025-02-14 00:52] LABS: Alanine Aminotransferase 9 U/L (0-41); Albumin Level 4.3 g/dL (3.5-5.2); Alkaline Phosphatase 111 U/L (40-130); Aspartate Amino Transferase 13 U/L (0-40); Blood Urea Nitrogen 12 mg/dL (8-23); Calcium 9.5 mg/dL (8.5-10.5); Carbon Dioxide 24 mmol/L (22-29); Chloride 96 mmol/L (98-107); Creatinine Clr Calc Pharmacy 83.7079; Globulin 2.6 g/dL (1.3-4.6); Glucose 133 mg/dL (65-115); Osmolality Calculated 284 mOsm/kg (285-295); Sodium 136 mmol/L (136-145); Total Protein 6.9 g/dL (6.6-8.7)
[2025-02-14 00:53] LABS: Lactic Sepsis W/Reflex 2.4 mmol/L (0.5-2.2)
[2025-02-14 00:54] LABS: Anion Gap 20.2 (5-19); Potassium 4.2 mmol/L (3.5-5.1)
[2025-02-14 01:06] LABS: Glucose Urine UA Trace (Normal); Nitrate Urine Positive (Negative); Specific Gravity, Urine 1.013 (1.005-1.030)
[2025-02-14 01:25] LABS: Add Urine Microscopic? YES; UA Manual Slide Review YES
[2025-02-14] MEDS: acetaminophen 1,000 MG/100 ML PIGGYBACK 400 MG IV (01:53)
[2025-02-14] MEDS: dilTIAZem 5 mg/mL SDV 5 mL 10 MG IVP (01:54)
[2025-02-14] MEDS: nitroglycerin 1 gm/inch oint Pkt 2 INCH TOPICAL (01:54)
[2025-02-14 02:09] LABS: ABG PCO2 42.7 mmHg (35-45); ABG PH Result 7.33 (7.35-7.45); Arterial Blood Gas Hematocrit 38.5 % (42-52); Blood Gas Allen Test Pos; Blood Gas Operator Identificat gerca; Blood Gas Sample Site Radial, right; Blood Gas Sample Type Arterial; HCO3 ABG 22.4 mmol/L (22-26); PO2 ABG 401.0 mmHg (80.0-100.0); PO2 FiO2 Ratio Arterial Blood 401
[2025-02-14 02:18] LABS: Reflex Lactate Order REFLEX LACTIC ORDERD
[2025-02-14 02:21] LABS: Troponin 5 2HR 37.79 ng/L (0-15); Troponin 5 2HR Delta 6.79 ABS# (0-10)
[2025-02-14 02:36] LABS: NT Pro B Type Natriuretic Pept 267 pg/mL (0-450)
[2025-02-14] MEDS: FUROsemide 10 mg/mL SDV 10mL 80 MG IVP (02:47)
--- NOTE | 2025-02-14 03:28 | USCV_ITS ---
Marbin Funez Age: 79 Gender: M : 1945 Exam Date: 02/14/2025 17:59 Ordering Phys: Mookie Ya MD Technologist: Efren Campa [place] [facility] [place]: atrial fib with rvr BP: 123 / 66 HR: 91 Rhythm: Sinus Technical Quality: Suboptimal MEASUREMENTS (Male / Female) Normal Values 2D ECHO LV Diastolic Diameter PLAX 4.2 cm 4.2 - 5.9 / 3.9 - 5.3 cm IVS Diastolic Thickness 1.2 cm 0.6 - 1.0 / 0.6 - 0.9 cm IVS Systolic Thickness 1.4 cm LVPW Diastolic Thickness 1.0 cm 0.6 - 1.0 / 0.6 - 0.9 cm LVPW Systolic Thickness 1.1 cm LVOT Diameter 2.0 cm LV Ejection Fraction 2D Teich 69.2 % LV Ejection Fraction MOD 4C 60.5 % LV Ejection Fraction MOD 2C 59.2 % LV Ejection Fraction 2C AL 61.0 % LA Diameter 3.3 cm RA Systolic Volume 4C AL 35.4 ml RA Systolic Volume 4C MOD 36.4 ml LA Sys Volume AL 40.9 cm cubed LA Sys Volume Index AL 19.4 cm cubed/m squared Aorta at Sinotubular Diameter 2.1 cm IVC Diameter 1.9 cm M-MODE LA Ao Ratio MM 1.8 AV Cusp Separation MM 1.4 cm DOPPLER AV Peak Velocity 92.0 cm/s LVOT Peak Velocity 92.0 cm/s AV Area Cont Eq vti 2.7 cm squared AV Area Cont Eq pk 3.2 cm squared MV Peak Velocity 134.0 cm/s MV Area PHT 9.6 cm squared Mitral E to A Ratio 0.7 TV Peak Velocity 139.5 cm/s TR Peak Velocity 140.0 cm/s TR Peak Gradient 7.8 mmHg TR Mean Velocity 125.0 cm/s TR Mean Gradient 6.3 mmHg TR Velocity Time Integral 37.2 cm FINDINGS Left Ventricle Normal left ventricular size and systolic function, EF 61%. Mild left ventricular hypertrophy. No regional wall motion abnormalities. Grade I/IV diastolic dysfunction (abnormal relaxation filling pattern), normal to mildly elevated filling pressures. Right Ventricle Normal right ventricular size and systolic function. Right Atrium Normal right atrial size. Left Atrium Normal left atrial size. IA Septum Appears to be intact Mitral Valve Minimally thickened mitral valve Aortic Valve Thickened aortic valve. Tricuspid Valve No gross abnormalities noted Pulmonic Valve Pulmonic valve not well visualized. Pericardium No pericardial effusion. Aorta Normal diameter of the aortic root and ascending thoracic aorta. IVC Inferior vena cava not visualized. CONCLUSIONS Normal left ventricular size and systolic function, EF 61%. Mild left ventricular hypertrophy. No regional wall motion abnormalities. Grade I/IV diastolic dysfunction (abnormal relaxation filling pattern), normal to mildly elevated filling pressures. Minimally thickened aortic and mitral valves. There is no pericardial effusion. There are no intracardiac masses. Technically difficult study because of the poor ultrasonic window. Dr Sharif Arias MD FACC (Electronically Signed) Final Date: 14 February 2025 21:49 S
--- NOTE | 2025-02-14 03:30 | PM.HP ---
Providers/Chief Complaint Admitting Physician: Mookie Ya MD Primary Care Provider: Shavonne Biswas MD Chief Complaint: Weakness, Tremors, Fever History of Present Illness as per the patient and the previous chart review; Marbin Funez is a 79 year old male with PMH of PAD s/p stenting, hypothyroidism, BPH, treated lung and bladder cancer currently in remission, h/p CAD s/p stenting came with fever and chills with fatiguability. the patient family was there in the room and reported that the patient is not feeling well since Dec, and has been following at [facility]. He has been diagnosed with UTI recently few days ago but did not get antibiotics. he was about to get his antibiotics but then he was having fever and chills that he made him to come to the hosp. he did not report any nausea or active vomiting. no abd pain or any increase in LLE. or any pnd or orthopnea. he complained of sob but no active chest pain or pressure like symptoms. no presyncope or syncope. no skin rash. rest of the review of the system was unremarkable Review of Systems General: Reports: 10 or more systems reviewed and unremarkable except in HPI and below Medications/Allergies Home Medications ?Medication ?Instructions ?Recorded ?Confirmed ?Last Taken ?Type Sole supports #1 ea 09/18/19 02/03/25 Unknown Rx aspirin 81 mg tablet,delayed 81 mg PO DAILY@12 09/18/19 02/03/25 12/16/24 History release cholecalciferol (vitamin D3) 25 25 mcg PO DAILY@0730 09/18/19 02/03/25 08/12/24 07:30 History mcg (1,000 unit) capsule Custom orthotics #1 ea 11/20/19 02/03/25 Unknown Rx Diabetic shoes with custom inserts #1 ea 12/08/20 02/03/25 Unknown Rx cetirizine 10 mg tablet 10 mg PO DAILY 10/07/21 02/03/25 12/16/24 History isosorbide mononitrate 60 mg 90 mg PO QAM 10/07/21 02/03/25 12/17/24 History tablet,extended release 24 hr multivitamin 1 tab PO DAILY 10/07/21 02/03/25 12/17/24 History Diabetic Shoes with 3 sets of #1 ea 11/08/21 02/03/25 Unknown Rx insoles glucagon 1 mg solution for 1 mg SUBCUT Q20M PRN hypoglycemia 11/23/21 02/03/25 Unknown Rx injection (Glucagon Emergency Kit) #1 ea levothyroxine 75 mcg tablet 150 mcg PO DAILY 12/07/21 02/03/25 12/17/24 History insulin glargine 100 unit/mL (3 40 unit SUBCUT DAILY see pharmacy 01/14/22 02/03/25 12/17/24 History mL) subcutaneous pen comments hydrocortisone 2.5 % topical cream 1 applic topical BID #30 grams 02/01/22 02/03/25 Unknown Rx atorvastatin 80 mg tablet 40 mg (1/2 x 80 mg) PO QPM #45 tabs 04/06/22 02/03/25 12/16/24 Rx cilostazol 50 mg tablet 100 mg PO BID 09/15/22 02/03/25 12/16/24 History polyethylene glycol 3350 17 gram 17 g PO DAILY 10/13/22 02/03/25 12/17/24 History oral powder packet (Miralax) triamcinolone acetonide 0.025 % 1 applic topical BID #60 mL 11/02/22 02/03/25 Unknown Rx lotion guaifenesin 600 mg tablet, 600 mg PO .three times week #90 11/24/22 02/03/25 12/14/24 Rx extended release 12 hr tabs mometasone 100 mcg/actuation HFA 1 puff inhalation BID #13 grams 10/12/23 02/03/25 08/12/24 12:00 Rx aerosol inhaler albuterol sulfate 90 mcg/actuation 1 inh inhalation QID 02/20/24 02/03/25 Unknown History aerosol inhaler clopidogrel 75 mg tablet 75 mg PO DAILY #90 tabs 03/07/24 02/03/25 12/11/24 Rx 2 Pairs of Custom Molded Orthotics #1 ea 03/15/24 02/03/25 Unknown Rx A5514 blood-glucose,math interventionist,cont #1 ea 06/17/24 02/03/25 Unknown Rx (Dexcom G7 It Specialist) diabetic shoes with custom inserts #1 ea 09/09/24 02/03/25 Unknown Rx blood-glucose sensor (Dexcom G7 #3 ea 10/15/24 02/03/25 Unknown Rx Sensor device) metformin 500 mg tablet,extended 500 mg PO BID #180 tabs 10/15/24 02/03/25 12/17/24 Rx release 24 hr losartan 50 mg tablet See Rx Instructions .Route 11/07/24 02/03/25 12/17/24 Rx .COMPLEX #135 tabs Diabetic Shoes with 3 inserts #1 ea 12/09/24 02/03/25 Unknown Rx Solu-Medrol (PF) 210 mg PO DIRECTED 12/17/24 02/03/25 12/17/24 History insulin aspart U-100 100 unit/mL 20 unit SUBCUT TID 12/17/24 02/03/25 12/17/24 History (3 mL) subcutaneous pen (Novolog FlexPen U-100 Insulin aspart) urea 40 % topical cream 1 applic topical PRN 12/17/24 02/03/25 Unknown History peg 3350-electrolytes 236 240 ml PO Q10M #4,000 mL 12/26/24 02/03/25 Unknown Rx gram-22.74 gram-6.74 gram-5.86 gram solution (Golytely) gabapentin 100 mg capsule See Rx Instructions .Route 01/23/25 02/03/25 Unknown Rx .COMPLEX #270 caps Allergies Allergy/AdvReac Type Severity Reaction Status Date / Time No Known Allergies Allergy Verified 01/02/25 08:51 PFSH Acute PFSH: Medical History (Updated 02/14/25 @ 03:41 by Mookie Ya MD) Atherosclerosis of coronary artery Lung nodule Type 2 diabetes mellitus with diabetic polyneuropathy Bladder cancer PVD (peripheral vascular disease) Surgical History Port-A-Cath in place (04/01/20) H/O esophagogastroduodenoscopy (04/01/20) History of bronchoscopy History of bladder surgery History of surgical removal of pilonidal cyst H/O colonoscopy H/O heart artery stent Family History Other CAD (coronary artery disease) Cancer Diabetes Hyperlipidemia Hypertension Lung disease Denies family history of Clotting disorder Dementia Psychiatric illness Chronic kidney disease (CKD) Suicide Anesthesia complication Bleeding disorder Family history of premature coronary artery disease Stroke Social History Smoking and tobacco/nicotine status: never used tobacco/nicotine Quit status (tobacco/nicotine): has quit using Year quit tobacco: 2008 - 2-3 PPD x 45 Years Alcohol intake: never Substance/Drug Use: never Lives independently: Yes Household members: spouse Marital status: service: Yes Current occupational status: retired Do you think of yourself as: Straight/Heterosexual Current gender identity: Male Vitals/I&O/Wt Last Vital Signs Temp 100.3 F H 02/14/25 00:16 Pulse 134 H 02/14/25 01:54 Resp 20 H 02/14/25 00:16 BP 166/93 02/14/25 01:54 Pulse Ox 98 02/14/25 02:20 O2 Del Method BiPAP 02/14/25 02:48 FiO2 40 02/14/25 02:20 02/13/25 02/13/25 02/14/25 14:59 22:59 06:59 Intake Total 2290 / 2290 Balance 2290 / 2290 Weight last 48 hrs Weight 91.399 kg Physical Exam Narrative: General: Alert and oriented, lying with BIPAP machine, able to complete full sentences, not in distress, HEENT: Normocephalic, atraumatic, grossly unremarkable exam Cardio: irregular rhythm and cant comment on the heart sounds due to increased HR,short neck, JVD cant be observed Respiratory: bilateral equal air entry with inspiratory crackles uptil mid zone GI: Abdomen soft, nontender, mild distention due to bipap air, normoactive bowel sounds present all 4 quadrants, Neuro: intact cranial nerves motor and sensory and cerebellar/coordination function without any focal neurological deficit Behavior: Appropriate and cooperative Extremities: pedal edema +edward, pallor +edward Data 02/14/25 00:00 02/14/25 00:00 Micro: Microbiology 02/14/25 00:44 Blood Culture - Preliminary Blood SPECIMEN COLLECTED 02/14/25 00:00 Blood Culture - Preliminary Blood SPECIMEN COLLECTED A&P Assessment and plan 1. Acute hypoxic respiratory failure: secondary to fluid overload underlying at fib RVR, could be element of BPH? underlying severe sepsis with high lactate. blood cultures, urine culture and MRSA vanc and zosyn as per pharm dosing, already recieved 2gm ceftriaxone by the ER FU lactate hold fluids, since the MAP is above 65mmhg fluid overload: lasix bolus 80mg once and insert folleys cath for intake and output monitoring BIPAP to continue for resp distress secondary to fluid overload 2. Sepsis secondary to UTI: h/o diagnosed UTI at [facility], not treated since he was diagnosed recently blood cultures, urine culture and MRSA vanc and zosyn as per pharm dosing, already recieved 2gm ceftriaxone by the ER FU lactate hold fluids, since the MAP is above 65mmhg and adequate capillary refil is there 3. Atrial fibrillation with rapid ventricular response: pt recieved diltiazem 10mg once, HR in 120s, amiodarone bolus, and avoid any medications causing drop in HR meanwhile since pt is in fluid overload and will recieve lasix, rate control medication to be considered once pt is hemodynamically better 4. COPD (chronic obstructive pulmonary disease): levalbuterol and ipratropium scheduled doses 5. Hypothyroid: resume home medication levothyroxine 150mcg daily after medication reconciliation 6. PVD (peripheral vascular disease): cont on DAPT and cilostazole, mentioned in the home medications need reconciliation 7. HLD (hyperlipidemia): cont home dose statins 8. Type 2 diabetes mellitus with diabetic polyneuropathy: insulin S/S at the moment considering pt current critical illness 9. BPH (benign prostatic hyperplasia): pt on flomax, hold since there is a risk of hypotension insert folleys cath adequate intake and output monitoring PDMP PDMP Reviewed: Not Reviewed Attestations Medical Necessity Statement*: Marbin Funez's hospital stay will require greater than 2 midnights for severe sepsis, septic shock fluid responsive Time Spent in Patient Care: 16 - 35 minutes (>than 50% of time spent in counselling and/or direct pt care on unit). Critical Care Time: The high probability of a clinically significant, sudden or life threatening deterioration, as referenced in this documentation, required my full and direct attention, intervention and personal management. The critical care time shown is in addition to time spent performing any reported separately billable procedures and includes the following: [x] Data and vital sign review and interpretation [x] Patient assessment, examination and intervention [x] Medication orders and management [x] Patient/Family updates as able [x] Care Coordination and Documentation. Critical Care Time (min): 35 Other Attestations: Patient condition has been discussed at length with the patient/family, I have independently reviewed the chart labs imaging/diagnostics/EKG. the goals of care and code status with the patient/family/NOK/legal clearance representative, and documented accordingly. The patient/family has been informed about the current condition and further plan of care. Agreed with the plan of care and understood without any language barrier. Every effort was made to ensure accuracy of utility worker driver. Any obvious errors or omissions should be clarified with the author of the document. Coding Level of Care Code Critical Care >/= 30 minutes Diagnoses Acute hypoxic respiratory failure J96.01 Sepsis secondary to UTI A41.9; N39.0 Atrial fibrillation with rapid ventricular response I48.91 COPD (chronic obstructive pulmonary disease) J44.9 Hypothyroid E03.9 PVD (peripheral vascular disease) I73.9 HLD (hyperlipidemia) E78.5 Type 2 diabetes mellitus with diabetic polyneuropathy E11.42 BPH (benign prostatic hyperplasia) N40.0
[2025-02-14 03:54] LABS: Coronavirus 229E,HKU1,NL63,OC4 Not Detected (NOT DETECT); Parainfluenza Virus Type 1 Not Detected (NOT DETECT); Parainfluenza Virus Type 2 Not Detected (NOT DETECT); Parainfluenza Virus Type 3 Not Detected (NOT DETECT); Parainfluenza Virus Type 4 Not Detected (NOT DETECT); SARS-COV-2 Not Detected (NOT DETECT)
[2025-02-14] MEDS: AMIODARONE HCL/D5W 900 MG/500 ML BAG 33.33 MG IV (04:27)
[2025-02-14] MEDS: piperacillin-tazobactam 3.375 GM in sodium chloride 0.9% (plus) 50 ML IV ×3 (04:34→17:28)
[2025-02-14] MEDS: heparin 5,000 unit/mL INJ 1 mL 5000 UNIT SUBCUT (04:35)
[2025-02-14 04:54] LABS: Hematocrit 33.8 % (37-53); Hemoglobin 10.80 g/dL (11.27-16.99); Mean Corpuscular HGB Conc 32.0 g/dL (30-55); Mean Corpuscular Hemoglobin 28.2 pg (27-33); Mean Corpuscular Volume 88.3 fl (82-101); Nucleated Red Blood Cells % 0 %; Platelet Count 295 10^3/cmm (157-399); Red Blood Count 3.83 10^6/uL (3.85-5.65); White Blood Count 22.87 10^3/uL (3.29-11.43)
[2025-02-14 05:13] LABS: Lactate (Lactic Acid level) 1.5 mmol/L (0.5-2.2)
[2025-02-14 05:15] LABS: Alanine Aminotransferase 8 U/L (0-41); Albumin Level 3.5 g/dL (3.5-5.2); Alkaline Phosphatase 92 U/L (40-130); Anion Gap 18.5 (5-19); Aspartate Amino Transferase 9 U/L (0-40); Blood Urea Nitrogen 13 mg/dL (8-23); Calcium 8.3 mg/dL (8.5-10.5); Carbon Dioxide 22 mmol/L (22-29); Chloride 96 mmol/L (98-107); Creatinine Clr Calc Pharmacy 83.7079; Globulin 2.7 g/dL (1.3-4.6); Glucose 284 mg/dL (65-115); Osmolality Calculated 284 mOsm/kg (285-295); Potassium 4.5 mmol/L (3.5-5.1); Sodium 132 mmol/L (136-145); Total Protein 6.2 g/dL (6.6-8.7)
[2025-02-14] MEDS: metoprolol succinate ER (24 HR) 25 mg Tablet 12.5 MG PO (06:30)
[2025-02-14 06:42] LABS: Troponin 5 6HR 91.92 ng/L (0-15)
[2025-02-14 06:48] LABS: Troponin 5 6HR Delta 60.92 ng/L (0-12)
[2025-02-14 07:11] LABS: Magnesium 1.4 mg/dL (1.7-2.3); Thyroid Stimulating Hormone 0.13 uIU/mL (0.27-4.20)
--- NOTE | 2025-02-14 07:50 | PC.NURSE ---
glucose via FS, 320.
[2025-02-14 09:34] LABS: Estmated Average Glucose 157; Hemoglobin A1C 7.1 % (4.0-6.0)
[2025-02-14 09:40] LABS: Free T4 Free Thyroxine 3.43 ng/dL (0.82-1.77); Procalcitonin 0.25 ng/mL (0-0.5)
[2025-02-14] MEDS: magnesium sulfate premix 2 GM/50 ML PIGGYBACK IV (10:00)
[2025-02-14 10:01] LABS: Iron 15 ug/dL (59-158); Total Iron Binding Capacity 222 mcg/dl; Unsaturated Iron Binding 207 ug/dL (112-347)
[2025-02-14 10:04] LABS: MRSA PCR OZH (swab) NOT DETECTED (Negative)
[2025-02-14 10:18] LABS: Vitamin B12 829 pg/mL (232-1245)
--- NOTE | 2025-02-14 11:30 | P.CONIM_ITS ---
<Statement entered by Vita Ordonez MD - 02/23/25 19:57> Patient was evaluated and cared for in conjunction with an advanced practice practitioner. I personally examined the patient and reviewed the chart and all pertinent data including imaging, telemetry, and laboratory results. I discussed the patient in detail with the advanced practice practitioner. Please see their note for complete H&P testing result and agreed upon plan of care for the patient. Providers/Reason For Consult 2 Consulting Physician/Specialty*: Dr Damaso Ordonez, interventional cardiology Reason for Consult*: New onset atrial fibrillation, elevated troponin in the setting of sepsis Requesting Physician: Dr. 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 He presented to the emergency room via EMS due to fever, chills weakness, back and flank pain. He was found to have UTI, was febrile at 100.3 ?F, lactic acid elevated at 2.4, tachycardic and rhythm showing new onset atrial fibrillation. He was given fluid bolus for sepsis, resulting in volume overload requiring BiPAP support. He was started on amiodarone infusion and has converted to sinus rhythm. White blood cell count 22.8, BUN 13, creatinine 0.7. He has not had any chest pain. He is now on room air saturating well, able to lay flat without distress, no lower extremity edema noted. Review of Systems 2 Const: Denies: fever(s), chills, change in weight, fatigue or diaphoresis Eyes: Denies: change in vision ENMT: Denies: epistaxis Card: Denies: chest pain, palpitations, irregular heart rhythm, edema, syncope, pre-syncope, dyspnea on exertion, orthopnea or leg pain with exertion Resp: Denies: dyspnea, productive cough or wheezing GI: Denies: nausea, vomiting, hematemesis, hematochezia or melena : Denies: hematuria Musc: Denies: extremity swelling Slick/Lymph: Denies: easy bruising or easy bleeding Medications/Allergies Home Medications ?Medication ?Instructions ?Recorded ?Confirmed ?Last Taken ?Type Sole supports #1 ea 09/18/19 02/14/25 Unkn own Rx aspirin 81 mg tablet,delayed 81 mg PO DAILY@12 0 02/14/25 02/13/25 12:00 History release cholecalciferol (vitamin D3) 25 25 mcg PO DAILY@0730 0 09/18/19 02/14/25 02/13/25 History mcg (1,000 unit) capsule Custom orthotics #1 ea 11/20/19 02/14/25 Unkn own Rx Diabetic shoes with custom inserts #1 ea 12/08/2008/06 Unknown Rx cetirizine 10 mg tablet 10 mg PO DAILY 10/07/21 1008/0602/13/25 History isosorbide mononitrate 60 mg 90 mg PO QAM 10/07/2108/0602/13/25 History tablet,extended release 24 hr multivitamin 1 tab PO QAM 10/07/2102/13/25 History Diabetic Shoes with 3 sets of #1 ea 11/08/21 02/14/25 Unknown Rx insoles glucagon 1 mg solution for 1 mg SUBCUT Q20M PRN hypogl ycemia 11/23/21 02/14/25 Unknown Rx injection (Glucagon Emergency Kit) #1 ea insulin glargine 100 unit/mL (3 40 unit SUBCUT DAILY 0 01/14/22 02/14/25 02/13/25 History mL) subcutaneous pen hydrocortisone 2.5 % topical cream 1 applic topical BI D #30 grams 02/01/22 02/14/25 Unknown Rx atorvastatin 80 mg tablet 40 mg (1/2 x 80 mg) PO QPM # 45 tabs 04/06/22 02/14/25 02/13/25 19:00 Rx polyethylene glycol 3350 17 gram 17 g PO BID PRN Const ipation 10/13/22 02/14/25 02/13/25 History oral powder packet (Miralax) guaifenesin 600 mg tablet, 600 mg PO .three times week #90 11/24/22 02/14/25 02/13/25 Rx extended release 12 hr tabs albuterol sulfate 90 mcg/actuation 1 inh inhalation QI D 02/20/24 02/14/25 Unknown History aerosol inhaler clopidogrel 75 mg tablet 75 mg PO DAILY #90 tabs 02/1302/14/25 02/13/25 Rx 2 Pairs of Custom Molded Orthotics #1 ea 03/15/2408/06 Unknown Rx A5514 blood-glucose,patient observation assistant,cont #1 ea 06/17/24 02/14/25 Un known Rx (Dexcom G7 Restoration Technician) diabetic shoes with custom inserts #1 ea 09/09/2408/06 Unknown Rx blood-glucose sensor (Dexcom G7 #3 ea 10/15/24 5 Unknown Rx Sensor device) metformin 500 mg tablet,extended 500 mg PO BID #180 ta bs 10/15/24 02/14/25 02/13/25 Rx release 24 hr losartan 50 mg tablet See Rx Instructions .Route 0 11/07/24 02/14/25 02/13/25 Rx .COMPLEX #135 tabs Diabetic Shoes with 3 inserts #1 ea 12/09/24 02/14/25 Unknown Rx insulin aspart U-100 100 unit/mL 20 unit SUBCUT TID 02/14/25 02/13/25 History (3 mL) subcutaneous pen (Novolog FlexPen U-100 Insulin aspart) gabapentin 100 mg capsule See Rx Instructions .Route 0 01/23/25 02/14/25 02/13/25 Rx .COMPLEX #270 caps cilostazol 100 mg tablet 100 mg PO BID 02/14/2502/1402/13/25 History levothyroxine 175 mcg tablet 175 mcg PO QAM 02/14/25 1 02/13/25 History Allergies Allergy/AdvReac Type Severity Reaction Status Date / Time No Known Allergies Allergy Verified 01/02/25 08:51 Current Medications Generic Name Dose Route Start Last Admin Trade Name Freq PRN Reason Stop Dose Admin Budesonide 0.5 mg 02/14/25 09:05 02/14/25 09:51 Budesonide 0.5 Mg/2 Ml Neb INHALATION Not Given BID.RESPIRATORY LEMUEL Cilostazol 100 mg 02/14/25 05:00 02/14/25 04:40 Cilostazol 100 Mg Tablet PO 100 mg BID LEMUEL Administration Clopidogrel Bisulfate 75 mg 02/14/25 05:00 02/14/25 04:40 Clopidogrel 75 Mg Tablet PO 75 mg DAILY LEMUEL Administration Enoxaparin Sodium 90 mg 02/14/25 09:15 02/14/25 09:59 Enoxaparin 100 Mg/Ml Syringe 1 mg/kg (90 mg) 90 mg SUBCUT Administration Q12H LEMUEL Piperacillin Sod/Tazobactam 50 mls @ 12.5 mls/hr 02/14/25 10:30 02/14/25 10:59 Sod 3.375 gm/ Sodium Chloride IV 12.5 mls/hr Q8H LEMUEL Infusion AMIODARONE HCL/D5W 900 mg in 500 mls @ 0 mls/hr 02/14/25 03:50 02/14/25 10:59 Amiodarone 900 Mg/500 Ml-D5w IV 0.5 mg/min .Q0M LEMUEL 16.67 mls/hr Protocol Titration Per Protocol Insulin Human Lispro 0 unit 02/14/25 08:00 02/14/25 08:36 Insulin Lispro 100 Unit/1 Ml SUBCUT 10 unit TIDWM LEMUEL Administration Protocol Ipratropium [place] 0.5 mg 02/14/25 08:00 02/14/25 07:58 Ipratropium 0.5 Mg/2.5 Ml Neb INHALATION 0.5 mg Q6H.RESP LEMUEL Administration Levalbuterol HCl 1.25 mg 02/14/25 08:00 02/14/25 07:58 Levalbuterol 1.25 Mg/3 Ml Neb INHALATION 1.25 mg Q6H.RESP LEMUEL Administration Metoprolol Succinate 12.5 mg 02/14/25 06:00 02/14/25 06:30 Metoprolol Succinate Er (24 Hr) 25 Mg Tablet PO 12.5 mg DAILY LEMUEL Administration Pantoprazole Sodium 40 mg 02/14/25 05:00 02/14/25 04:[address] 40 Mg Tablet PO 40 mg DAILY LEMUEL Administration PFSH Acute 2 PFSH: Medical History Atherosclerosis of coronary artery Lung nodule Type 2 diabetes mellitus with diabetic polyneuropathy Bladder cancer PVD (peripheral vascular disease) Surgical History Port-A-Cath in place (04/01/20) H/O esophagogastroduodenoscopy (04/01/20) History of bronchoscopy History of bladder surgery History of surgical removal of pilonidal cyst H/O colonoscopy H/O heart artery stent Family History Other CAD (coronary artery disease) Cancer Diabetes Hyperlipidemia Hypertension Lung disease Denies family history of Clotting disorder Dementia Psychiatric illness Chronic kidney disease (CKD) Suicide Anesthesia complication Bleeding disorder Family history of premature coronary artery disease Stroke Social History Smoking and tobacco/nicotine status: never used tobacco/nicotine Quit status (tobacco/nicotine): has quit using Year quit tobacco: 2007 - - PPD x 45 Years Alcohol intake: never Substance/Drug Use: never Lives independently: Yes Household members: spouse Marital status: service: Yes Current occupational status: retired Do you think of yourself as: Straight/Heterosexual Current gender identity: Male Vitals/I&O/Wt Last Vital Signs Temp 100.3 F H 02/14/25 00:16 Pulse 83 02/14/25 10:30 Resp 20 H 02/14/25 10:30 BP 120/79 02/14/25 10:30 Pulse Ox 91 02/14/25 10:30 O2 Del Method Room Air 02/14/25 10:30 FiO2 40 02/14/25 08:00 02/13/25 02/14/25 02/14/25 22:59 06:59 14:59 Intake Total 2290 / 2290 720.881 / 720.881 Output Total 800 / 800 Balance 1490 / 1490 720.881 / 720.881 Weight last 48 hrs Weight 201 lb 8 oz Physical Exam 2 Const: COMMON NORMALS: no acute distress and patient oriented x3 GENERAL APPEARANCE: cooperative and comfortable ORIENTATION/CONSCIOUSNESS: Yes awake, Yes oriented to person, Yes oriented to place and Yes oriented to time Chest: COMMONS NORMALS: normal inspection of the chest and normal palpation of entire chest wall CHEST: Yes Symmetrical chest wall rise Resp: COMMON NORMALS: normal respiratory effort, No retractions, No use of accessory muscles and clear to auscultation bilaterally EFFORT & INSPECTION: Yes symmetric chest movement AUSCULTATION: clear to auscultation bilaterally Cardio: COMMON NORMALS: regular rate, regular rhythm, S1 normal heart sound present, S2 normal heart sound present, No gallops present (Cardio), No clicks present (Cardio), No murmurs present (Cardio) and No rub (Cardio) RATE: r egular rate RHYTHM: regular rhythm HEART SOUNDS: S1 normal heart sound present and S2 normal heart sound present PERIPHERAL PULSES: radial pulses present Extremity: COMMON NORMALS: no pedal edema Neuro: COMMON NORMALS: patient oriented x3 and moves all extremities S ENSORIUM/ORIENTATION: Yes oriented to person, Yes oriented to place and Yes oriented to time Data 02/14/25 04:25 02/14/25 04:25 Micro: Microbiology 02/14/25 00:44 Blood Culture - Preliminary Blood SPECIMEN COLLECTED 02/14/25 00:00 Blood Culture - Preliminary Blood SPECIMEN COLLECTED A&P Assessment and plan 1. Atrial fibrillation with rapid ventricular response: 2. Atherosclerosis of coronary artery: 3. Malignant neoplasm of upper lobe, right bronchus or lun. Peripheral arterial occlusive disease: 5. Type 2 diabetes mellitus with diabetic polyneuropathy: 6. COPD (chronic obstructive pulmonary disease): 7. HLD (hyperlipidemia): Plan: Echocardiogram has been ordered but not completed. Since he has converted to sinus rhythm will change to oral amiodarone 400mg BID, stop infusion. Continue metoprolol succinate 12.5 mg daily, aspirin, Plavix, cilostazol, statin. Will medically manage troponin elevation since he is chest pain free, as it is felt to be demand ischemia related to atrial fibrillation with RVR which appears to be related to the urosepsis. Once sepsis has resolved should discontinue amiodarone completely and continue on beta-kris. Will recommend a 30 day event monitor at the time of discharge. PDMP PDMP Reviewed: Not Reviewed Coding Level of Care Code Acute Code for Chg Fwd Diagnoses Atrial fibrillation with rapid ventricular response I48.91 Atherosclerosis of coronary artery I25.10 Malignant neoplasm of upper lobe, right bronchus or lung C34.11 Peripheral arterial occlusive disease I77.9 Type 2 diabetes mellitus with diabetic polyneuropathy E11.42 COPD (chronic obstructive pulmonary disease) J44.9 HLD (hyperlipidemia) E78.5
--- NOTE | 2025-02-14 13:10 | PC.NURSE ---
Arrived from ER, transferred self to bed
--- NOTE | 2025-02-14 14:04 | PHA.VACGOAL ---
Vancomycin Goal - Goal Vancomycin Goal:: 15-20 mg/L Vancomycin Indication:: Other (Sepsis secondary to UTI) - Therapy Current therapy:: Pip/Tazo Day of therpy:: Day [1]of [] . Actual body weight (kg): 91.399 kg - Data Labs: WBC 22.87 10^3/uL (3.29-11.43) H 02/14/25 04:25 RBC 3.83 10^6/uL (3.85-5.65) L 02/14/25 04:25 Hgb 10.80 g/dL (11.27-16.99) L 02/14/25 04:25 Hct 33.8 % (37-53) L 02/14/25 04:25 MCV 88.3 fl (82-101) 02/14/25 04:25 MCH 28.2 pg (27-33) 02/14/25 04:25 MCHC 32.0 g/dL (30-55) 02/14/25 04:25 RDW 15.3 % (12.1-15.1) H 02/14/25 04:25 Sodium 132 mmol/L (136-145) L 02/14/25 04:25 Potassium 4.5 mmol/L (3.5-5.1) 02/14/25 04:25 Chloride 96 mmol/L (98-107) L 02/14/25 04:25 Carbon Dioxide 22 mmol/L (22-29) 02/14/25 04:25 Anion Gap 18.5 (5-19) 02/14/25 04:25 BUN 13 mg/dL (8-23) 02/14/25 04:25 Creatinine 0.7 mg/dL (0.7-1.2) 02/14/25 04:25 GFR Calculation Not Reportable 02/14/25 04:25 Treatment plan:: new consult Regimen:: New start vancomycin for sepsis secondary to UTI. Patient received 2000 mg load dose in the ER. Started on maintenance dose of 1500 mg q12h.
[2025-02-14] MEDS: alum-mag-hydroxide-sime 30 mL UDC PO (20:23)
[2025-02-15] VITALS (32 sets, daily range): BP systolic 97–159; BP diastolic 43–89; PULSE 76–122; RESP 13–39; TEMP 36.3–37; O2SAT 88–99
[2025-02-15] MEDS: piperacillin-tazobactam 3.375 GM in sodium chloride 0.9% (plus) 50 ML IV ×3 (01:41→18:29)
[2025-02-15 04:28] LABS: Hematocrit 34.7 % (37-53); Hemoglobin 11.10 g/dL (11.27-16.99); Mean Corpuscular HGB Conc 32.0 g/dL (30-55); Mean Corpuscular Hemoglobin 28.9 pg (27-33); Mean Corpuscular Volume 90.4 fl (82-101); Nucleated Red Blood Cells % 0 %; Platelet Count 303 10^3/cmm (157-399); Red Blood Count 3.84 10^6/uL (3.85-5.65); White Blood Count 12.78 10^3/uL (3.29-11.43)
[2025-02-15 04:57] LABS: Alanine Aminotransferase 8 U/L (0-41); Albumin Level 3.5 g/dL (3.5-5.2); Alkaline Phosphatase 88 U/L (40-130); Anion Gap 16.2 (5-19); Aspartate Amino Transferase 10 U/L (0-40); Blood Urea Nitrogen 14 mg/dL (8-23); Calcium 9.1 mg/dL (8.5-10.5); Carbon Dioxide 22 mmol/L (22-29); Chloride 99 mmol/L (98-107); Globulin 3.2 g/dL (1.3-4.6); Glucose 308 mg/dL (65-115); Osmolality Calculated 288 mOsm/kg (285-295); Potassium 4.2 mmol/L (3.5-5.1); Sodium 133 mmol/L (136-145); Total Protein 6.7 g/dL (6.6-8.7)
[2025-02-15 05:03] LABS: Creatinine Clr Calc Pharmacy 82.7083
[2025-02-15 06:37] LABS: Cholesterol 88 mg/dL (0-200); HDL Cholesterol 49 mg/dL (60-100); Magnesium 2.0 mg/dL (1.7-2.3); Triglycerides 61 mg/dL (0-150); VLDL Cholestrol Calculation 12 mg/dL (0-30)
--- NOTE | 2025-02-15 09:19 | PM.PN ---
Subjective Subjective: Cardiology coverage. The patient is mainly complaining of shortness of breath. He had a CT of the chest and abdomen today and results are pending. He still is staying in the sinus rhythm. He is on the p.o. amiodarone. Medications: Medication Review Details: Current Medications Acetaminophen (Acetaminophen 325 Mg Tablet) 650 mg PO Q6H PRN PRN Reason: MILD PAIN Last Admin: 02/14/25 19:21 Dose: 650 mg Amiodarone HCl (Amiodarone 200 Mg Tablet) 400 mg PO BID LEMUEL Last Admin: 02/15/25 05:36 Dose: 400 mg Aspirin (Aspirin 81 Mg Ec Tablet) 81 mg PO DAILY@12 LEMUEL Last Admin: 02/14/25 11:48 Dose: 81 mg Atorvastatin Calcium (Atorvastatin 40 Mg Tablet) 40 mg PO BEDTIME [facility] Last Admin: 02/14/25 20:24 Dose: 40 mg Budesonide (Budesonide 0.5 Mg/2 Ml Neb) 0.5 mg INHALATION BID.RESPIRATORY LEMUEL Last Admin: 02/15/25 08:02 Dose: Not Given Cilostazol (Cilostazol 100 Mg Tablet) 100 mg PO BID LEMUEL Last Admin: 02/15/25 05:36 Dose: 100 mg Clopidogrel Bisulfate (Clopidogrel 75 Mg Tablet) 75 mg PO DAILY L[facility] Last Admin: 02/15/25 05:36 Dose: 75 mg Enoxaparin Sodium (Enoxaparin 100 Mg/Ml Syringe) 90 mg 1 mg/kg (90 mg) SUBCUT Q12H [facility]UEL Last Admin: 02/15/25 08:35 Dose: 90 mg Glucagon (Glucagon 1 Mg/Ml Kit 1 Ml) 1 mg IM ONCE PRN; Protocol PRN Reason: Adult Acute Hypoglycemia Nursing Prot. Piperacillin Sod/Tazobactam (Sod 3.375 gm/ Sodium Chloride) 50 mls @ 12.5 mls/hr IV Q8H LEMUEL Last Infusion: 02/15/25 07:17 Dose: Infused Vancomycin HCl (Vancocin) 1,500 mg in 300 mls @ 200 mls/hr IV Q12H [facility] Last Infusion: 02/15/25 08:48 Dose: Infused Dextrose (D5w) 500 mls @ 0 mls/hr IV ONCE PRN; Protocol PRN Reason: Adult Acute Hypoglycemia Prot Dextrose (D10w) 125 mls @ 750 mls/hr IV PRN PRN; Protocol PRN Reason: Adult Acute Hypoglycemia Nursing Protocol Dextrose (D10w) 250 mls @ 1,000 mls/hr IV PRN PRN; Protocol PRN Reason: Adult Acute Hypoglycemia Nursing Protocol Insulin Human Lispro (Insulin Lispro 100 Unit/1 Ml) 0 unit SUBCUT TIDWM [facility]; Protocol Last Admin: 02/15/25 08:35 Dose: 6 unit Ipratropium [place] (Ipratropium 0.5 Mg/2.5 Ml Neb) 0.5 mg INHALATION Q6H.RESP [facility] Last Admin: 02/15/25 08:02 Dose: Not Given Levalbuterol HCl (Levalbuterol 1.25 Mg/3 Ml Neb) 1.25 mg INHALATION Q6H.RESP [facility] Last Admin: 02/15/25 08:02 Dose: Not Given Levothyroxine Sodium (Levothyroxine 100 Mcg Tablet) 100 mcg PO DAILY [facility] Last Admin: 02/15/25 05:36 Dose: 100 mcg Metoprolol Tartrate (Metoprolol Tartrate 25 Mg Tablet) 25 mg PO BID@0900,2100 [facility] Last Admin: 02/15/25 08:34 Dose: 25 mg Morphine Sulfate (Morphine 4 Mg/Ml Sdv 1 Ml) 2 mg IVP Q4H PRN PRN Reason: SEVERE PAIN Pantoprazole Sodium (Pantoprazole Dr 40 Mg Tablet) 40 mg PO DAILY [facility] Last Admin: 02/15/25 05:36 Dose: 40 mg Senna (Sennosides 8.6 Mg Tablet) 17.2 mg PO BEDTIME [facility] Last Admin: 02/14/25 20:24 Dose: 17.2 mg Vitals/I&O/Wt Last Vital Signs Temp 98.6 F 02/15/25 07:00 Pulse 93 02/15/25 08:00 Resp 24 H 02/15/25 08:00 BP 141/75 02/15/25 08:00 Pulse Ox 92 02/15/25 08:00 O2 Del Method Room Air 02/15/25 08:00 O2 Flow Rate 2 02/15/25 08:00 FiO2 30 02/15/25 04:20 02/14/25 02/15/25 02/15/25 22:59 06:59 14:59 Intake Total 306.667 / 1091.927 0 / 1091.927 550 / 550 Balance 306.667 / 1091.927 0 / 1091.927 550 / 550 Weight last 48 hrs Weight 193 lb 9.6 oz Weight 194 lb 0.108 oz Weight 196 lb 3.382 oz Weight 201 lb 8 oz Physical Exam Narrative: GENERAL: The patient is alert and oriented times three. Not in any acute distress. HEENT: No significant pallor, icterus or lymphadenopathy.Oral cavity: There are no mucous membrane lesions. NECK: Trachea appears to be central. No masses noted. No JVD or thyromegaly appreciated. RESPIRATORY: Chest is symmetrical. No intercostals muscle retraction or any accessory muscle activation. There is no chest wall tenderness. Breath sounds are heard bilaterally. No rales or rhonchi heard. No evidence of any consolidation. BREASTS: Deferred. HEART: The heart sounds are normal. No S3 or S4. No significant murmurs. No pericardial rub ABDOMEN: No vessel pulsations or distention. No tenderness. No organomegaly appreciated. Bowel sounds are normally heard. : Deferred. RECTAL: Deferred. LYMPHATIC: No lymphadenopathy noted in the neck. EXTREMITIES: Trace edema with no cyanosis. No clubbing. MUSCULOSKELETAL: No acute joint deformities or swelling SKIN: There are no significant rashes or ecchymosis NEUROPSYCHIATRIC: The patient is alert and oriented x3. Appears to be in a good mood. No tremors or rigidity noted. Data 02/15/25 03:22 02/15/25 03:22 Other Labs: Laboratory Last Values WBC 12.78 10^3/uL (3.29-11.43) H 02/15/25 03:22 RBC 3.84 10^6/uL (3.85-5.65) L 02/15/25 03:22 Hgb 11.10 g/dL (11.27-16.99) L 02/15/25 03:22 Hct 34.7 % (37-53) L 02/15/25 03:22 MCV 90.4 fl (82-101) 02/15/25 03:22 MCH 28.9 pg (27-33) 02/15/25 03:22 MCHC 32.0 g/dL (30-55) 02/15/25 03:22 RDW 15.5 % (12.1-15.1) H 02/15/25 03:22 Plt Count 303 10^3/cmm (157-399) 02/15/25 03:22 MPV 9.0 fL (7.4-10.4) 02/15/25 03:22 Neut % (Auto) 85.3 % 02/15/25 03:22 Lymph % (Auto) 6.3 % 02/15/25 03:22 [place] % (Auto) 6.7 % 02/15/25 03:22 Eos % (Auto) 1.0 % 02/15/25 03:22 Baso % (Auto) 0.2 % 02/15/25 03:22 Neut # (Auto) 10.90 10^3/uL (1.8-7.7) H 02/15/25 03:22 Lymph # (Auto) 0.8 10^3/uL (0.8-4.8) 02/15/25 03:22 [place] # (Auto) 0.9 10^3/uL (0.2-0.9) 02/15/25 03:22 Eos # (Auto) 0.1 10^3/uL (0.0-0.8) 02/15/25 03:22 Baso # (Auto) 0.0 10^3/uL (0.0-0.1) 02/15/25 03:22 Nucleated RBC % (auto) 0 % 02/15/25 03: Nucleated RBCs # 0.0 /100WBC 02/15/25 03:22 Specimen Type Arterial 02/14/25 02:00 Sample Site Radial, right 02/14/25 02:00 ABG pH 7.33 (7.35-7.45) L 02/14/25 02:00 ABG pCO2 42.7 mmHg (35-45) 02/14/25 02:00 ABG pO2 401.0 mmHg (80.0-100.0) H 02/14/25 02:00 ABG PO2/FiO2 Ratio 401 02/14/25 02:00 ABG HCO3 22.4 mmol/L (22-26) 02/14/25 02:00 ABG Base Excess -3.5 mmol/L (-2.0-2.0) L 02/14/25 02:00 Syed Test Pos 02/14/25 02:00 Hematocrit 38.5 % (42-52) L 02/14/25 02:00 O2 Delivery Device Bipap 02/14/25 02:00 FiO2 100.0 % 02/14/25 02:00 Electrolysis Investigator ID [email or web address] 02/14/25 02:00 Sodium 133 mmol/L (136-145) L 02/15/25 03:22 Potassium 4.2 mmol/L (3.5-5.1) 02/15/25 03:22 Chloride 99 mmol/L (98-107) 02/15/25 03:22 Carbon Dioxide 22 mmol/L (22-29) 02/15/25 03:22 Anion Gap 16.2 (5-19) 02/15/25 03:22 BUN 14 mg/dL (8-23) 02/15/25 03:22 Creatinine 0.5 mg/dL (0.7-1.2) L 02/15/25 03:22 GFR Calculation Not Reportable 02/15/25 03:22 Glucose 308 mg/dL (65-115) H 02/15/25 03:22 POC Glucose 233 mg/dL (70-110) H 02/15/25 07:56 Estimat Average Glucose 157 02/14/25 04:25 Hemoglobin A1c 7.1 % (4.0-6.0) H 02/14/25 04:25 Calculated Osmolality 288 mOsm/kg (285-295) 02/15/25 03:22 Lactic Acid 2.4 mmol/L (0.5-2.2) H 02/14/25 00:00 Lactate 1.5 mmol/L (0.5-2.2) 02/14/25 04:25 Calcium 9.1 mg/dL (8.5-10.5) 02/15/25 03:22 Magnesium 2.0 mg/dL (1.7-2.3) 02/15/25 03:22 Iron 15 ug/dL (59-158) L 02/14/25 04:25 TIBC 222 mcg/dl 02/14/25 04:25 % Saturation 6.7 % (20-50) L 02/14/25 04:25 Unsat Iron Binding 207 ug/dL (112-347) 02/14/25 04:25 Total Bilirubin 0.3 mg/dL (0.15-1.2) 02/15/25 03:22 AST 10 U/L (0-40) 02/15/25 03:22 ALT 8 U/L (0-41) 02/15/25 03:22 Alkaline Phosphatase 88 U/L (40-130) 02/15/25 03:22 Troponin T Baseline 31 ng/L (0-15) H 02/14/25 00:00 Troponin T 120 Minute 37.79 ng/L (0-15) H 02/14/25 01:49 Delta Troponin T 6.79 ABS# (0-10) 02/14/25 01:49 Troponin T Hi Sens 6Hr 91.92 ng/L (0-15) H 02/14/25 05:59 Troponin T Hi Sens 6Hr Delta 60.92 ng/L (0-12) H* 02/14/25 05:59 NT-Pro-B Natriuret Pep 267 pg/mL (0-450) 02/14/25 01:49 Total Protein 6.7 g/dL (6.6-8.7) 02/15/25 03:22 Albumin 3.5 g/dL (3.5-5.2) 02/15/25 03:22 Globulin 3.2 g/dL (1.3-4.6) 02/15/25 03:22 Triglycerides 61 mg/dL (0-150) 02/15/25 03:22 Cholesterol 88 mg/dL (0-200) 02/15/25 03:22 LDL Cholesterol, Calc 27 mg/dL (50-129) L 02/15/25 03:22 Total VLDL Cholesterol 12 mg/dL (0-30) 02/15/25 03:22 HDL Cholesterol 49 mg/dL (60-100) L 02/15/25 03:22 Cholesterol/HDL Ratio 1.80 mg/dL (1.0-5.00) 02/15/25 03:22 Vitamin B12 829 pg/mL (232-1245) 02/14/25 04:25 Folate 8.2 ng/mL (4.5-32.2) 02/15/25 03:22 Procalcitonin 0.25 ng/mL (0-0.5) 02/14/25 04:25 TSH 0.13 uIU/mL (0.27-4.20) L 02/14/25 04:25 Free T4 3.43 ng/dL (0.82-1.77) H 02/14/25 04:25 Free T3 2.6 PG/ML (2.0-4.4) 02/14/25 04:25 Urine Color Yellow (Yellow) 02/14/25 01:00 Urine Appearance Clear (CLEAR) 02/14/25 01:00 Urine pH 7.0 (5-7) 02/14/25 01:00 Ur Specific [place] 1.013 (1.005-1.030) 02/14/25 01:00 Urine Protein Trace (Negative) A 02/14/25 01:00 Urine Glucose (UA) Trace (Normal) H 02/14/25 01:00 Urine Ketones 1+ (Negative) H 02/14/25 01:00 Urine Blood Negative (Negative) 02/14/25 01:00 Urine Nitrate Positive (Negative) A 02/14/25 01:00 Urine Bilirubin Negative (Negative) 02/14/25 01:00 Urine Urobilinogen 1.0 mg/dL (Negative) 02/14/25 01:00 Ur Leukocyte Esterase 1+ (Negative) A 02/14/25 01:00 Urine RBC 0-4 /hpf (0-2) H 02/14/25 01:00 Urine WBC 15-25 /hpf (0-5) H 02/14/25 01:00 Ur Squamous Epith Cells None /hpf (0-5) 02/14/25 01:00 Amorphous Sediment Not Reportable 02/14/25 01:00 Urine Bacteria 3+ /hpf (NONE) H 02/14/25 01:00 Nasal MRSA (PCR) Not detected (Negative) 02/14/25 08:36 Adenovirus (PCR) Not detected (NOT DETECT) 02/14/25 01:45 C. pneumoniae DNA (PCR) Not detected (NOT DETECT) 02/14/25 01:45 Coronavirus 229E (PCR) Not detected (NOT DETECT) 02/14/25 01:45 Human Metapneumovir PCR Not detected (NOT DETECT) 02/14/25 01:45 Influenza A (H1) PCR Not detected (NOT DETECT) 02/14/25 01:45 Influ A (H1/09) PCR Not detected (NOT DETECT) 02/14/25 01:45 Influenza A (H3) PCR Not detected (NOT DETECT) 02/14/25 01:45 Influenza Type A (PCR) Not detected (NOT DETECT) 02/14/25 01:45 Influenza Type B (PCR) Not detected (NOT DETECT) 02/14/25 01:45 M. pneumoniae (PCR) Not detected (NOT DETECT) 02/14/25 01:45 Parainfluenza 1 (PCR) Not detected (NOT DETECT) 02/14/25 01:45 Parainfluenza 2 (PCR) Not detected (NOT DETECT) 02/14/25 01:45 Parainfluenza 3 (PCR) Not detected (NOT DETECT) 02/14/25 01:45 Parainfluenza 4 (PCR) Not detected (NOT DETECT) 02/14/25 01:45 RSV Type A (PCR) Not detected (NOT DETECT) 02/14/25 01:45 RSV Type B (PCR) Not detected (NOT DETECT) 02/14/25 01:45 Entero/Rhino (PCR) Not detected (NOT DETECT) 02/14/25 01:45 SARS-CoV-2 (PCR) Not detected (NOT DETECT) 02/14/25 01:45 Micro: Microbiology 02/14/25 00:44 Blood Culture - Preliminary Blood 02/14/25 00:00 Blood Culture - Preliminary Blood NEGATIVE TO DATE Other data: Cardiac catheterization on 08/13/2024 Date of procedure: 08/13/24 Pre-procedure diagnosis: Worsening angina/ abnormal stress test Post-procedure diagnosis: other (Patent LAD stents. [employer] OFFICER of RCA) Procedure: Left main artery is patent. LAD has patent prior stents. RCA has chronic total occlusion. Ostial left circumflex artery has mild to moderate 30 to 40% disease. Medical therapy. Can consider workup of gallbladder related issues with PCP. Performing Provider: Cornell Hoover Complications: A&P Assessment and plan 1. Atrial fibrillation with rapid ventricular response: Currently the patient is in sinus rhythm. The EKG from today revealed sinus rhythm with poor R wave progression and some nonspecific T wave changes. 2. Atherosclerosis of [place] coronary artery of [place] heart with angina pectoris: Patient is known to have atherosclerotic heart diseas and multiple PCI's. Currently seems to be stable. The most recent coronary angiogram was done in September of this year. He was found to have a [employer]IMAL SERVICES OFFICER of the RCA and the mid to distal circumflex artery. Patent stent in the LAD. No other significant lesions. It was opted to treat her medically. May continue on the current management. 3. Malignant neoplasm of upper lobe, right bronchus or lung: Management as per the primary for pulmonology. 4. Peripheral arterial occlusive disease: Clinically seems to be stable with no specific symptoms. Continue on the current management. 5. Type 2 diabetes mellitus with diabetic polyneuropathy, with long-term current use of insulin: Blood sugar management as per the primary. 6. Centrilobular emphysema: Patient is being treated for COPD exacerbation. CT of the chest and abdomen was done today. Results are pending. May continue the current management 7. Mixed hyperlipidemia: May continue on the current management. Plan: The echocardiogram from yesterday revealed normal LV size ejection fraction. No severe wall motion abnormalities. Continue on the current medications. Continue on the amiodarone 400 mg p.o. twice daily for a week followed by 400 mg daily for a week followed by 200 mg p.o. daily Based on the clinical progress, further management decisions will be made. PDMP PDMP Reviewed: Not Reviewed Attestations Medical Necessity Statement*: Referred to the primary Coding Level of Care Code 47193 Diagnoses Atrial fibrillation with rapid ventricular response I48.91 Atherosclerosis of [place] coronary artery of [place] heart with angina pectoris I25.119 Coronary Disease-Associated Artery/Lesion type: [place] artery [place] vs. transplanted heart: [place] heart Associated angina: with unspecified form of angina Malignant neoplasm of upper lobe, right bronchus or lung C34.11 Peripheral arterial occlusive disease I77.9 Type 2 diabetes mellitus with diabetic polyneuropathy, with long-term current use of insulin E11.42; Z79.4 Diabetes mellitus skilled nursing insulin use: with terminal gauger use Centrilobular emphysema J43.2 COPD type: emphysema Emphysema type: centrilobular Mixed hyperlipidemia E78.2 Hyperlipidemia type: mixed hyperlipidemia
--- NOTE | 2025-02-15 11:37 | CTR_ITS ---
PROCEDURE INFORMATION: Exam: CT Chest Without Contrast; Diagnostic Exam date and time: 02/15/2025 12:35 PM Age: 79 years old Clinical indication: Other: SOB, sepsis. UTI; Shortness of breath TECHNIQUE: Imaging protocol: Diagnostic computed tomography of the chest without contrast. Radiation optimization: All CT scans at this facility use at least one of these dose optimization techniques: automated exposure control; mA and/or kV adjustment per patient size (includes targeted exams where dose is matched to clinical indication); or iterative reconstruction. COMPARISON: CT chest w con* [id number] 03/18/2024 1:04 PM RADIATION DOSE METRICS: Total DLP (mGy-cm): 926.98 FINDINGS: Lungs: Compressive atelectasis of the lung bases. Redemonstration of bronchiectasis and fibrosis in the medial right upper lobe and right perihilar area with bronchovascular thickening and consolidation. However there is increased adjacent consolidation to this as well as scattered ground-glass and interstitial markings bilaterally. Pleural spaces: Moderate bilateral pleural effusions. Heart: Unremarkable. No cardiomegaly. No pericardial effusion. Coronary arteries: Coronary artery disease. Lymph nodes: Multiple prominent mediastinal and hilar lymph nodes are present. Vasculature: Unremarkable. No aortic aneurysm. Bones/joints: Lytic lesions identified within the T11 and T12 vertebral bodies. Soft tissues: Unremarkable. PROCEDURE INFORMATION: Exam: CT Abdomen And Pelvis Without Contrast Exam date and time: 02/15/2025 12:35 PM Age: 79 years old Clinical indication: Other: SOB, sepsis. UTI; Shortness of breath TECHNIQUE: Imaging protocol: Computed tomography of the abdomen and pelvis without contrast. Radiation optimization: All CT scans at this facility use at least one of these dose optimization techniques: automated exposure control; mA and/or kV adjustment per patient size (includes targeted exams where dose is matched to clinical indication); or iterative reconstruction. COMPARISON: CT abdomen pelvis w con* [id number] 12/30/2024 2:40 PM RADIATION DOSE METRICS: Total DLP (mGy-cm): 926.98 FINDINGS: Liver: Normal. No mass. Gallbladder and biliary ducts: Normal. No calcified stones. No ductal dilation. Pancreas: Normal. No ductal dilation. Spleen: Normal. No splenomegaly. Adrenal glands: Normal. No mass. Kidneys and ureters: Normal. No hydronephrosis. Stomach and bowel: Unremarkable. No obstruction. No mucosal thickening. Appendix: No evidence of appendicitis. Intraperitoneal space: Unremarkable. No free air. No significant fluid collection. Vasculature: Severe atherosclerosis. Lymph nodes: Unremarkable. No enlarged lymph nodes. Urinary bladder: Unremarkable as visualized. Reproductive: Unremarkable as visualized. Bones/joints: Lytic destructive lesion in the L1 vertebral body. Soft tissues: Unremarkable. CT/[place] [id number] IMPRESSION: 1. Redemonstration of process in the right upper lung medially as well as right perihilar region with bronchiectasis, fibrosis and consolidations related to the patient's known neoplasm. However there is increased adjacent consolidation, scattered ground-glass and interstitial thickening. Although findings may relate to superimposed infectious/inflammatory etiologies, can not exclude recurrence of neoplasm. 2. Prominent mediastinal and hilar lymph nodes. 3. Moderate bilateral pleural effusions with adjacent compressive atelectasis. 4. Lytic lesions within the T11 and T12 vertebral body. IMPRESSION: 1. No evidence of mass or lymphadenopathy within the abdomen or pelvis. 2. 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
[2025-02-15] MEDS: methylPREDNISolone sod succ 40 mg/mL INJ IVP ×2 (12:15→20:25)
[2025-02-15] MEDS: insulin glargine 100 units/1 mL 30 UNIT SUBCUT (13:13)
--- NOTE | 2025-02-15 13:38 | ECG_ITS ---
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 Measurements Intervals [place] Rate: 92 P: 11 [place]: 175 QRS: 52 QRSD: 102 T: 70 QT: 389 QTc: 483 Interpretive Statements SINUS RHYTHM NONSPECIFIC T-WAVE ABNORMALITY Compared to ECG 02/14/2025 00:17:00 Atrial fibrillation no longer present T-wave abnormality still present Electronically Signed On 02-15-2025 14:38:41 CDT by Sharif Arias M.D. [email or web address]
--- NOTE | 2025-02-15 14:07 | P.PN_ITS ---
Subjective 2 Subjective: No acute vents overnight. Patient has remained in normal sinus rhythm. Sitting up in chair. Complaining of difficulty in breathing. Denies any nausea, vomiting, headache. Saturating more than 90% on room air. States he has been recently diagnosed of enlarged prostate and bladder. His prostate medication has been changed recently. Medications: Medication Review Details: Current Medications Acetaminophen (Acetaminophen 325 Mg Tablet) 650 mg PO Q6H PRN PRN Reason: MILD PAIN Last Admin: 02/14/25 19:21 Dose: 650 mg Amiodarone HCl (Amiodarone 200 Mg Tablet) 400 mg PO BID LEMUEL Last Admin: 02/15/25 05:36 Dose: 400 mg Aspirin (Aspirin 81 Mg Ec Tablet) 81 mg PO DAILY@12 LEMUEL Last Admin: 02/14/25 11:48 Dose: 81 mg Atorvastatin Calcium (Atorvastatin 40 Mg Tablet) 40 mg PO BEDTIME LEMUEL Last Admin: 02/14/25 20:24 Dose: 40 mg Budesonide (Budesonide 0.5 Mg/2 Ml Neb) 0.5 mg INHALATION BID.RESPIRATORY LEMUEL Last Admin: 02/15/25 08:02 Dose: Not Given Cilostazol (Cilostazol 100 Mg Tablet) 100 mg PO BID ELMUEL Last Admin: 02/15/25 05:36 Dose: 100 mg Clopidogrel Bisulfate (Clopidogrel 75 Mg Tablet) 75 mg PO DAILY [facility] Last Admin: 02/15/25 05:36 Dose: 75 mg Enoxaparin Sodium (Enoxaparin 100 Mg/Ml Syringe) 90 mg 1 mg/kg (90 mg) SUBCUT Q12H [facility] Last Admin: 02/15/25 08:35 Dose: 90 mg Glucagon (Glucagon 1 Mg/Ml Kit 1 Ml) 1 mg IM ONCE PRN; Protocol PRN Reason: Adult Acute Hypoglycemia Nursing Prot. Piperacillin Sod/Tazobactam (Sod 3.375 gm/ Sodium Chloride) 50 mls @ 12.5 mls/hr IV Q8H LEMUEL Last Infusion: 02/15/25 07:17 Dose: Infused Vancomycin HCl (Vancocin) 1,500 mg in 300 mls @ 200 mls/hr IV Q12H LEMUEL Last Infusion: 02/15/25 08:48 Dose: Infused Dextrose (D5w) 500 mls @ 0 mls/hr IV ONCE PRN; Protocol PRN Reason: Adult Acute Hypoglycemia Prot Dextrose (D10w) 125 mls @ 750 mls/hr IV PRN PRN; Protocol PRN Reason: Adult Acute Hypoglycemia Nursing Protocol Dextrose (D10w) 250 mls @ 1,000 mls/hr IV PRN PRN; Protocol PRN Reason: Adult Acute Hypoglycemia Nursing Protocol Insulin Human Lispro (Insulin Lispro 100 Unit/1 Ml) 0 unit SUBCUT TIDWM LEMUEL; Protocol Last Admin: 02/15/25 08:35 Dose: 6 unit Ipratropium [place] (Ipratropium 0.5 Mg/2.5 Ml Neb) 0.5 mg INHALATION Q6H.RESP [facility] Last Admin: 02/15/25 08:02 Dose: Not Given Levalbuterol HCl (Levalbuterol 1.25 Mg/3 Ml Neb) 1.25 mg INHALATION Q6H.RESP [facility] Last Admin: 02/15/25 08:02 Dose: Not Given Levothyroxine Sodium (Levothyroxine 100 Mcg Tablet) 100 mcg PO DAILY [facility] Last Admin: 02/15/25 05:36 Dose: 100 mcg Metoprolol Tartrate (Metoprolol Tartrate 25 Mg Tablet) 25 mg PO BID@0900,2100 [facility] Last Admin: 02/15/25 08:34 Dose: 25 mg Morphine Sulfate (Morphine 4 Mg/Ml Sdv 1 Ml) 2 mg IVP Q4H PRN PRN Reason: SEVERE PAIN Pantoprazole Sodium (Pantoprazole Dr 40 Mg Tablet) 40 mg PO DAILY [facility] Last Admin: 02/15/25 05:36 Dose: 40 mg Senna (Sennosides 8.6 Mg Tablet) 17.2 mg PO BEDTIME [facility] Last Admin: 02/14/25 20:24 Dose: 17.2 mg Vitals/I&O/Wt Last Vital Signs Temp 98.6 F 02/15/25 07:00 Pulse 94 02/15/25 13:30 Resp 20 H 02/15/25 13:30 BP 146/66 02/15/25 13:00 Pulse Ox 93 02/15/25 13:30 O2 Del Method Nasal Cannula 02/15/25 13:30 O2 Flow Rate 2 02/15/25 13:30 FiO2 30 02/15/25 04:20 02/14/25 02/15/25 02/15/25 22:59 06:59 14:59 Intake Total 306.667 / 1091.927 0 / 1091.927 700 / 700 Balance 306.667 / 1091.927 0 / 1091.927 700 / 700 Weight last 48 hrs Weight 87.815 kg Weight 88 kg Weight 89 kg Weight 91.399 kg Physical Exam 2 Narrative: General: Alert and oriented, AO x 3, sick appearing, sitting up in chair, cold peripheries HEENT: Normocephalic, atraumatic, grossly unremarkable exam Cardio: irregular rhythm and cant comment on the heart sounds due to increased HR, short neck, JVD cant be observed Respiratory: bilateral bronchial breath sounds over lower lung cramer occasional rhonchi GI: Abdomen soft, nontender, mild distention due to bipap air, normoactive bowel sounds present all 4 quadrants, Neuro: intact cranial nerves motor and sensory and cerebellar/coordination function without any focal neurological deficit Behavior: Appropriate and cooperative Extremities: pedal edema +edward, pallor +edward Data 02/15/25 03:22 02/15/25 03:22 Micro: Microbiology 02/14/25 01:00 Urine Culture - Preliminary Urine,Clean Catch 02/14/25 00:44 Blood Culture - Preliminary Blood 02/14/25 00:00 Blood Culture - Preliminary Blood NEGATIVE TO DATE A&P Assessment and plan 1. Acute hypoxic respiratory failure: Most likely in setting of COPD exacerbation along with mild congestive heart failure. Check CT chest without contrast. Oxygen supplementation keeping saturation over 90%. Pulmicort twice daily, ipratropium, Xopenex every 6 hour. Start on Solu-Medrol IV 40 mg every 8 hourly. Check sputum culture. BiPAP nightly as needed. Low concern for congestive heart failure currently. Hold off on diuretic or IV fluids for now. 2. Sepsis secondary to UTI: h/o diagnosed UTI at [facility], not treated since he was diagnosed recently Follow-up blood cultures, urine culture. MRSA swab negative. Continue with IV Zosyn. Discontinue vancomycin. Maintain mean arterial pressure over 65. If needed can start on Levophed. 3. Atrial fibrillation with rapid ventricular response: Currently in sinus rhythm. Appreciate cardiology recommendations. Continue with amiodarone 400 mg twice daily along with metoprolol 25 mg twice daily. Continue with full dose anticoagulation with Lovenox 1 mg/kg body weight every 12 hourly. If remains in normal sinus rhythm on discharge will stop amiodarone continue with metoprolol. Will plan to discharge on event monitor. 4. Centrilobular emphysema: As above. 5. Acquired hypothyroidism: TSH low. Elevated free T4. Decrease dose of levothyroxine to 100 mcg daily. Patient should have a repeat thyroid panel done in 4 weeks. 6. PVD (peripheral vascular disease): 7. HLD (hyperlipidemia): cont home dose statins 8. Type 2 diabetes mellitus with diabetic polyneuropathy, with long-term current use of insulin: Blood sugars elevated. Add Lantus 30 units every morning. Continue with current sliding scale AC and at bedtime. Patient takes NovoLog 20 units 3 times daily along with sliding scale and Lantus 40 units nightly at home. 9. BPH (benign prostatic hyperplasia): Significant BPH as per patient. Bladder scan. CT abdomen pelvis without contrast. Start on finasteride along with Flomax 0.8 mg daily. If bladder scan shows urine retention for more than 200 cc. Plan for De catheterization. Patient is agreeable. Plan: Full code Carb consistent cardiac diet Protonix for PUD prophylaxis Full dose Lovenox will be sufficient for DVT prophylaxis PDMP PDMP Reviewed: Not Reviewed Attestations 2 Medical Necessity Statement*: Requires further hospitalization for management of acute hypoxic respiratory failure, shortness of breath, sepsis in setting of UTI, BPH, COPD exacerbation with concern for pneumonia, A-fib with RVR. Diagnoses Acute hypoxic respiratory failure J96.01 Sepsis secondary to UTI A41.9; N39.0 Atrial fibrillation with rapid ventricular response I48.91 Centrilobular emphysema J43.2 COPD type: emphysema Emphysema type: centrilobular Acquired hypothyroidism E03.9 Hypothyroidism type: acquired PVD (peripheral vascular disease) I73.9 HLD (hyperlipidemia) E78.5 Type 2 diabetes mellitus with diabetic polyneuropathy, with long-term current use of insulin E11.42; Z79.4 Diabetes mellitus custodial insulin use: with custodial use BPH (benign prostatic hyperplasia) N40.0
--- NOTE | 2025-02-15 18:50 | PC.NURSE ---
Patient back and forth from bed to chair multiple times this shift, a majority of time in chair. Patient does not tolerate activity well, oxygen saturation dropping to mid 80's and slow to recover. Patient states he is short of breath with ambulation at home as well. Bladder scan performed per 's order. Patient had 177ml before voiding, second bladder scan approximately two hors later revealed 494ml, patient after scan voided 250ml. Patient refuses De catheter at this time. CT abdomen and chest obtained. Patient refused AM breathing treatment, but agreed to receive next treatment. Patient progressed from room air to 2LNC and then Bipap for the afternoon, back to room air at evening meal time. Family at bedside updated through shift.
--- NOTE | 2025-02-15 20:10 | PC.NURSE ---
Rn spoke with Dr. Ya regarding patients change in rhythm and rate. patient was in Sr with rate in the 90s but switched in/out of SR and afib with rate in high 110s. Per MD no new orders at this time
[2025-02-16] VITALS (32 sets, daily range): BP systolic 95–152; BP diastolic 46–89; PULSE 83–116; RESP 13–27; TEMP 36.6–37.1; O2SAT 90–98
[2025-02-16] MEDS: piperacillin-tazobactam 3.375 GM in sodium chloride 0.9% (plus) 50 ML IV ×3 (02:18→18:04)
--- NOTE | 2025-02-16 02:26 | PC.NURSE ---
Patient voided 100 mls, ost void bladder scan showed 284. RN educated patient on importance of anderson catheter, patient refused at this time
[2025-02-16] MEDS: methylPREDNISolone sod succ 40 mg/mL INJ IVP ×3 (04:21→20:24)
[2025-02-16 04:22] LABS: Hematocrit 31.0 % (37-53); Hemoglobin 10.00 g/dL (11.27-16.99); Mean Corpuscular HGB Conc 32.3 g/dL (30-55); Mean Corpuscular Hemoglobin 28.2 pg (27-33); Mean Corpuscular Volume 87.6 fl (82-101); Nucleated Red Blood Cells % 0 %; Platelet Count 302 10^3/cmm (157-399); Red Blood Count 3.54 10^6/uL (3.85-5.65); White Blood Count 14.90 10^3/uL (3.29-11.43)
[2025-02-16] MEDS: insulin glargine 100 units/1 mL 30 UNIT SUBCUT (04:35)
[2025-02-16 04:55] LABS: Alanine Aminotransferase 7 U/L (0-41); Albumin Level 3.5 g/dL (3.5-5.2); Alkaline Phosphatase 80 U/L (40-130); Anion Gap 17.0 (5-19); Aspartate Amino Transferase 9 U/L (0-40); Blood Urea Nitrogen 15 mg/dL (8-23); Calcium 8.8 mg/dL (8.5-10.5); Carbon Dioxide 23 mmol/L (22-29); Chloride 100 mmol/L (98-107); Globulin 2.7 g/dL (1.3-4.6); Glucose 271 mg/dL (65-115); Magnesium 1.9 mg/dL (1.7-2.3); Osmolality Calculated 292 mOsm/kg (285-295); Potassium 4.0 mmol/L (3.5-5.1); Sodium 136 mmol/L (136-145); Total Protein 6.2 g/dL (6.6-8.7)
[2025-02-16 04:58] LABS: Creatinine Clr Calc Pharmacy 82.2917
--- NOTE | 2025-02-16 10:00 | PM.PN ---
Subjective Subjective: Patient continues to have the shortness of breath but this is improving. He had a CT of the chest revealing possible recurrence of malignancy and features of possible infection Medications: Medication Review Details: Current Medications Acetaminophen (Acetaminophen 325 Mg Tablet) 650 mg PO Q6H PRN PRN Reason: MILD PAIN Last Admin: 02/14/25 19:21 Dose: 650 mg Amiodarone HCl (Amiodarone 200 Mg Tablet) 400 mg PO BID LEMUEL Last Admin: 02/16/25 04:20 Dose: 400 mg Aspirin (Aspirin 81 Mg Ec Tablet) 81 mg PO DAILY@12 LEMUEL Last Admin: 02/15/25 12:14 Dose: 81 mg Atorvastatin Calcium (Atorvastatin 40 Mg Tablet) 40 mg PO BEDTIME LEMUEL Last Admin: 02/15/25 20:25 Dose: 40 mg Budesonide (Budesonide 0.5 Mg/2 Ml Neb) 0.5 mg INHALATION BID.RESPIRATORY LEMUEL Last Admin: 02/16/25 07:40 Dose: 0.5 mg Cilostazol (Cilostazol 100 Mg Tablet) 100 mg PO BID LEMUEL Last Admin: 02/16/25 04:21 Dose: 100 mg Clopidogrel Bisulfate (Clopidogrel 75 Mg Tablet) 75 mg PO DAILY LEMUEL Last Admin: 02/16/25 04:20 Dose: 75 mg Enoxaparin Sodium (Enoxaparin 100 Mg/Ml Syringe) 90 mg 1 mg/kg (90 mg) SUBCUT Q12H [facility]EMUEL Last Admin: 02/16/25 08:13 Dose: 90 mg Finasteride (Finasteride 5 Mg Tablet) 5 mg PO BEDTIME LEMUEL Last Admin: 02/15/25 20:25 Dose: 5 mg Glucagon (Glucagon 1 Mg/Ml Kit 1 Ml) 1 mg IM ONCE PRN; Protocol PRN Reason: Adult Acute Hypoglycemia Nursing Prot. Piperacillin Sod/Tazobactam (Sod 3.375 gm/ Sodium Chloride) 50 mls @ 12.5 mls/hr IV Q8H LEMUEL Last Infusion: 02/16/25 07:55 Dose: Infused Vancomycin HCl (Vancocin) 1,500 mg in 300 mls @ 200 mls/hr IV Q12H [facility]EMUEL Last Infusion: 02/16/25 08:25 Dose: Infused Dextrose (D5w) 500 mls @ 0 mls/hr IV ONCE PRN; Protocol PRN Reason: Adult Acute Hypoglycemia Prot Dextrose (D10w) 125 mls @ 750 mls/hr IV PRN PRN; Protocol PRN Reason: Adult Acute Hypoglycemia Nursing Protocol Dextrose (D10w) 250 mls @ 1,000 mls/hr IV PRN PRN; Protocol PRN Reason: Adult Acute Hypoglycemia Nursing Protocol Insulin Glargine (Insulin Glargine 100 Units/1 Ml) 30 unit SUBCUT QAM [facility]EMUEL Last Admin: 02/16/25 04:35 Dose: 30 unit Insulin Human Lispro (Insulin Lispro 100 Unit/1 Ml) 0 unit SUBCUT WM&BEDTIME LEMUEL; Protocol Last Admin: 02/16/25 08:14 Dose: 6 unit Ipratropium [place] (Ipratropium 0.5 Mg/2.5 Ml Neb) 0.5 mg INHALATION Q6H.RESP [facility] Last Admin: 02/16/25 07:40 Dose: 0.5 mg Levalbuterol HCl (Levalbuterol 1.25 Mg/3 Ml Neb) 1.25 mg INHALATION Q6H.RESP [facility] Last Admin: 02/16/25 07:40 Dose: 1.25 mg Levothyroxine Sodium (Levothyroxine 100 Mcg Tablet) 100 mcg PO DAILY [facility] Last Admin: 02/16/25 04:20 Dose: 100 mcg Methylprednisolone Sodium Succinate (Methylprednisolone Sod Succ 40 Mg/Ml Inj) 40 mg IVP Q8H [facility] Last Admin: 02/16/25 04:21 Dose: 40 mg Metoprolol Tartrate (Metoprolol Tartrate 25 Mg Tablet) 25 mg PO BID@0900,2100 [facility] Last Admin: 02/16/25 08:14 Dose: 25 mg Morphine Sulfate (Morphine 4 Mg/Ml Sdv 1 Ml) 2 mg IVP Q4H PRN PRN Reason: SEVERE PAIN Pantoprazole Sodium (Pantoprazole Dr 40 Mg Tablet) 40 mg PO DAILY COUNTS INCLUDE 234 BEDS AT THE [facility] Last Admin: 02/16/25 04:20 Dose: 40 mg Senna (Sennosides 8.6 Mg Tablet) 17.2 mg PO BEDTIME [facility] Last Admin: 02/15/25 20:25 Dose: 17.2 mg Tamsulosin HCl (Tamsulosin 0.4 Mg Capsule) 0.8 mg PO DAILY COUNTS INCLUDE 234 BEDS AT THE [facility] Last Admin: 02/16/25 04:20 Dose: 0.8 mg Vitals/I&O/Wt Last Vital Signs Temp 98.8 F 02/16/25 08:00 Pulse 87 02/16/25 09:00 Resp 27 H 02/16/25 09:00 BP 120/66 02/16/25 09:00 Pulse Ox 92 02/16/25 09:00 O2 Del Method Room Air 02/16/25 09:00 O2 Flow Rate 2 02/15/25 20:20 FiO2 30 02/16/25 00:00 02/15/25 02/16/25 02/16/25 22:59 06:59 14:59 Intake Total 600 / 1300 100 / 1400 550 / 550 Output Total 800 / 900 100 / 1000 450 / 450 Balance -200 / 400 0 / 400 100 / 100 Weight last 48 hrs Weight 196 lb 3.382 oz Weight 196 lb 3.382 oz Weight 193 lb 9.6 oz Weight 194 lb 0.108 oz Weight 196 lb 3.382 oz Physical Exam Narrative: GENERAL: The patient is alert and oriented times three. Not in any acute distress. HEENT: No significant pallor, icterus or lymphadenopathy.Oral cavity: There are no mucous membrane lesions. NECK: Trachea appears to be central. No masses noted. No JVD or thyromegaly appreciated. RESPIRATORY: Chest is symmetrical. No intercostals muscle retraction or any accessory muscle activation. There is no chest wall tenderness. Breath sounds are heard bilaterally. No rales or rhonchi heard. No evidence of any consolidation. BREASTS: Deferred. HEART: The heart sounds are normal. No S3 or S4. No significant murmurs. No pericardial rub ABDOMEN: No vessel pulsations or distention. No tenderness. No organomegaly appreciated. Bowel sounds are normally heard. : Deferred. RECTAL: Deferred. LYMPHATIC: No lymphadenopathy noted in the neck. EXTREMITIES: Trace edema with no cyanosis. No clubbing. MUSCULOSKELETAL: No acute joint deformities or swelling SKIN: There are no significant rashes or ecchymosis NEUROPSYCHIATRIC: The patient is alert and oriented x3. Appears to be in a good mood. No tremors or rigidity noted. Data 02/17/25 04:02 02/17/25 04:02 Other Labs: Laboratory Last Values WBC 14.90 10^3/uL (3.29-11.43) H 02/16/25 03:56 RBC 3.54 10^6/uL (3.85-5.65) L 02/16/25 03:56 Hgb 10.00 g/dL (11.27-16.99) L 02/16/25 03:56 Hct 31.0 % (37-53) L 02/16/25 03:56 MCV 87.6 fl (82-101) 02/16/25 03:56 MCH 28.2 pg (27-33) 02/16/25 03:56 MCHC 32.3 g/dL (30-55) 02/16/25 03:56 RDW 15.5 % (12.1-15.1) H 02/16/25 03:56 Plt Count 302 10^3/cmm (157-399) 02/16/25 03:56 MPV 9.1 fL (7.4-10.4) 02/16/25 03:56 Neut % (Auto) 93.3 % 02/16/25 03:56 Lymph % (Auto) 3.1 % 02/16/25 03:56 [place] % (Auto) 2.8 % 02/16/25 03:56 Eos % (Auto) 0.0 % 02/16/25 03:56 Baso % (Auto) 0.1 % 02/16/25 03:56 Neut # (Auto) 13.91 10^3/uL (1.8-7.7) H 02/16/25 03:56 Lymph # (Auto) 0.5 10^3/uL (0.8-4.8) L 02/16/25 03:56 [place] # (Auto) 0.4 10^3/uL (0.2-0.9) 02/16/25 03:56 Eos # (Auto) 0.0 10^3/uL (0.0-0.8) 02/16/25 03:56 Baso # (Auto) 0.0 10^3/uL (0.0-0.1) 02/16/25 03:56 Nucleated RBC % (auto) 0 % 02/16/25 03:56 Nucleated RBCs # 0.0 /100WBC 02/16/25 03:56 Specimen Type Arterial 02/14/25 02:00 Sample Site Radial, right 02/14/25 02:00 ABG pH 7.33 (7.35-7.45) L 02/14/25 02:00 ABG pCO2 42.7 mmHg (35-45) 02/14/25 02:00 ABG pO2 401.0 mmHg (80.0-100.0) H 02/14/25 02:00 ABG PO2/FiO2 Ratio 401 02/14/25 02:00 ABG HCO3 22.4 mmol/L (22-26) 02/14/25 02:00 ABG Base Excess -3.5 mmol/L (-2.0-2.0) L 02/14/25 02:00 Syed Test Pos 02/14/25 02:00 Hematocrit 38.5 % (42-52) L 02/14/25 02:00 O2 Delivery Device Bipap 02/14/25 02:00 FiO2 100.0 % 02/14/25 02:00 [place] Edger ID [email or web address] 02/14/25 02:00 Sodium 136 mmol/L (136-145) 02/16/25 03:56 Potassium 4.0 mmol/L (3.5-5.1) 02/16/25 03:56 Chloride 100 mmol/L (98-107) 02/16/25 03:56 Carbon Dioxide 23 mmol/L (22-29) 02/16/25 03:56 Anion Gap 17.0 (5-19) 02/16/25 03:56 BUN 15 mg/dL (8-23) 02/16/25 03:56 Creatinine 0.6 mg/dL (0.7-1.2) L 02/16/25 03:56 GFR Calculation Not Reportable 02/16/25 03:56 Glucose 271 mg/dL (65-115) H 02/16/25 03:56 POC Glucose 243 mg/dL (70-110) H 02/16/25 07:22 Estimat Average Glucose 157 02/14/25 04:25 Hemoglobin A1c 7.1 % (4.0-6.0) H 02/14/25 04:25 Calculated Osmolality 292 mOsm/kg (285-295) 02/16/25 03:56 Lactic Acid 2.4 mmol/L (0.5-2.2) H 02/14/25 00:00 Lactate 1.5 mmol/L (0.5-2.2) 02/14/25 04:25 Calcium 8.8 mg/dL (8.5-10.5) 02/16/25 03:56 Magnesium 1.9 mg/dL (1.7-2.3) 02/16/25 03:56 Magnesium Cancelled 02/16/25 03:56 Iron 15 ug/dL (59-158) L 02/14/25 04:25 TIBC 222 mcg/dl 02/14/25 04:25 % Saturation 6.7 % (20-50) L 02/14/25 04:25 Unsat Iron Binding 207 ug/dL (112-347) 02/14/25 04:25 Total Bilirubin 0.3 mg/dL (0.15-1.2) 02/16/25 03:56 AST 9 U/L (0-40) 02/16/25 03:56 ALT 7 U/L (0-41) 02/16/25 03:56 Alkaline Phosphatase 80 U/L (40-130) 02/16/25 03:56 Troponin T Baseline 31 ng/L (0-15) H 02/14/25 00:00 Troponin T 120 Minute 37.79 ng/L (0-15) H 02/14/25 01:49 Delta Troponin T 6.79 ABS# (0-10) 02/14/25 01:49 Troponin T Hi Sens 6Hr 91.92 ng/L (0-15) H 02/14/25 05:59 Troponin T Hi Sens 6Hr Delta 60.92 ng/L (0-12) H* 02/14/25 05:59 NT-Pro-B Natriuret Pep 267 pg/mL (0-450) 02/14/25 01:49 Total Protein 6.2 g/dL (6.6-8.7) L 02/16/25 03:56 Albumin 3.5 g/dL (3.5-5.2) 02/16/25 03:56 Globulin 2.7 g/dL (1.3-4.6) 02/16/25 03:56 Triglycerides 61 mg/dL (0-150) 02/15/25 03:22 Cholesterol 88 mg/dL (0-200) 02/15/25 03:22 LDL Cholesterol, Calc 27 mg/dL (50-129) L 02/15/25 03:22 Total VLDL Cholesterol 12 mg/dL (0-30) 02/15/25 03:22 HDL Cholesterol 49 mg/dL (60-100) L 02/15/25 03:22 Cholesterol/HDL Ratio 1.80 mg/dL (1.0-5.00) 02/15/25 03:22 Vitamin B12 829 pg/mL (232-1245) 02/14/25 04:25 Folate 8.2 ng/mL (4.5-32.2) 02/15/25 03:22 Procalcitonin 0.25 ng/mL (0-0.5) 02/14/25 04: TSH 0.13 uIU/mL (0.27-4.20) L 02/14/25 04: Free T4 3.43 ng/dL (0.82-1.77) H 02/14/25: Free T3 2.6 PG/ML (2.0-4.4) 02/14/25 04:25 Urine Color Yellow (Yellow) 02/14/25 01:00 Urine Appearance Clear (CLEAR) 02/14/25 01:00 Urine pH 7.0 (5-7) 02/14/25 01:00 Ur Specific [place] 1.013 (1.005-1.030) 02/14/25 01:00 Urine Protein Trace (Negative) A 02/14/25 01:00 Urine Glucose (UA) Trace (Normal) H 02/14/25 01:00 Urine Ketones 1+ (Negative) H 02/14/25 01:00 Urine Blood Negative (Negative) 02/14/25 01:00 Urine Nitrate Positive (Negative) A 02/14/25 01:00 Urine Bilirubin Negative (Negative) 02/14/25 01:00 Urine Urobilinogen 1.0 mg/dL (Negative) 02/14/25 01:00 Ur Leukocyte Esterase 1+ (Negative) A 02/14/25 01:00 Urine RBC 0-4 /hpf (0-2) H 02/14/25 01:00 Urine WBC 15-25 /hpf (0-5) H 02/14/25 01:00 Ur Squamous Epith Cells None /hpf (0-5) 02/14/25 01:00 Amorphous Sediment Not Reportable 02/14/25 01:00 Urine Bacteria 3+ /hpf (NONE) H 02/14/25 01:00 Nasal MRSA (PCR) Not detected (Negative) 02/14/25 08:36 Vancomycin Trough 13.4 ug/mL (10-15) 02/16/25 03:56 Adenovirus (PCR) Not detected (NOT DETECT) 02/14/25 01:45 C. pneumoniae DNA (PCR) Not detected (NOT DETECT) 02/14/25 01:45 Coronavirus 229E (PCR) Not detected (NOT DETECT) 02/14/25 01:45 Human Metapneumovir PCR Not detected (NOT DETECT) 02/14/25 01:45 Influenza A (H1) PCR Not detected (NOT DETECT) 02/14/25 01:45 Influ A (H1/09) PCR Not detected (NOT DETECT) 02/14/25 01:45 Influenza A (H3) PCR Not detected (NOT DETECT) 02/14/25 01:45 Influenza Type A (PCR) Not detected (NOT DETECT) 02/14/25 01:45 Influenza Type B (PCR) Not detected (NOT DETECT) 02/14/25 01:45 M. pneumoniae (PCR) Not detected (NOT DETECT) 02/14/25 01:45 Parainfluenza 1 (PCR) Not detected (NOT DETECT) 02/14/25 01:45 Parainfluenza 2 (PCR) Not detected (NOT DETECT) 02/14/25 01:45 Parainfluenza 3 (PCR) Not detected (NOT DETECT) 02/14/25 01:45 Parainfluenza 4 (PCR) Not detected (NOT DETECT) 02/14/25 01:45 RSV Type A (PCR) Not detected (NOT DETECT) 02/14/25 01:45 RSV Type B (PCR) Not detected (NOT DETECT) 02/14/25 01:45 Entero/Rhino (PCR) Not detected (NOT DETECT) 02/14/25 01:45 SARS-CoV-2 (PCR) Not detected (NOT DETECT) 02/14/25 01:45 Micro: Microbiology 02/15/25 12:50 Gram Stain - Final Sputum - Expectorated Sputum 02/14/25 01:00 Urine Culture - Preliminary Urine,Clean Catch Other data: CT of the chest and abdomen from 02/15/2025 1. Redemonstration of process in the right upper lung medially as well as right perihilar region with bronchiectasis, fibrosis and consolidations related to the patient's known neoplasm. However there is increased adjacent consolidation, scattered ground-glass and interstitial thickening. Although findings may relate to superimposed infectious/inflammatory etiologies, can not exclude recurrence of neoplasm. 2. Prominent mediastinal and hilar lymph nodes. 3. Moderate bilateral pleural effusions with adjacent compressive atelectasis. 4. Lytic lesions within the T11 and T12 vertebral body. 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 Mild disease in the other vessels. Stented segments in the right Left anterior descending artery A&P Assessment and plan 1. Multifocal atrial tachycardia: On gross examination of the EKG and the telemetry rhythm strips, it looks to me that the patient has been having episodes of multifocal atrial tachycardia. No documented atrial fibrillation so far. So for this reason, patient can be taken off the amiodarone. Also may discontinue the therapeutic Lovenox and give Lovenox for DVT prophylaxis. This was discussed 2. Atherosclerosis of [place] coronary artery of [place] heart with angina pectoris: Patient is known to have atherosclerotic heart diseas and multiple PCI's. Currently seems to be stable. The most recent coronary angiogram was done in September of this year. 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 Patent stent in the LAD. No other significant lesions. It was opted to treat her medically. May continue on the current management. 3. Malignant neoplasm of upper lobe, right bronchus or lung: Management as per the primary for pulmonology.? Recurrence 4. Peripheral arterial occlusive disease: Clinically seems to be stable with no specific symptoms. Continue on the current management. 5. Type 2 diabetes mellitus with diabetic polyneuropathy, with long-term current use of insulin: Blood sugar management as per the primary. 6. Centrilobular emphysema: Patient is being treated for COPD exacerbation. CT of the chest and abdomen was done today. Results are pending. May continue the current management Patient had a CT of the chest. He was found to have some suspicious lesions and enlarged lymph nodes. This may need follow-up evaluations. 7. Mixed hyperlipidemia: May continue on the current management. Plan: May continue on your current measures Cardiac status seems to be fairly stable Disposition as per the primary PDMP PDMP Reviewed: Not Reviewed Attestations Medical Necessity Statement*: Deferred to the primary Coding Level of Care Code 95526 Diagnoses Multifocal atrial tachycardia I47.19 Atherosclerosis of [place] coronary artery of [place] heart with angina pectoris I25.119 Associated angina: with unspecified form of angina Coronary Disease-Associated Artery/Lesion type: [place] artery [place] vs. 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
[2025-02-16] MEDS: FUROsemide 10 mg/mL SDV 4mL 40 MG IVP (11:54)
--- NOTE | 2025-02-16 12:38 | P.PN_ITS ---
Subjective 2 Subjective: Today morning seen with spouse at bedside. Sitting in chair. States feeling better. Remains on room air. Overnight has remained on BiPAP. States he did have difficulty in breathing on laying down overnight. Currently in sinus rhythm. Overnight had episodes of atrial fibrillation. Vitals/I&O/Wt Last Vital Signs Temp 98.8 F 02/16/25 08:00 Pulse 88 02/16/25 12:00 Resp 19 H 02/16/25 12:00 BP 113/61 02/16/25 12:00 Pulse Ox 95 02/16/25 12:00 O2 Del Method Room Air 02/16/25 12:00 O2 Flow Rate 2 02/15/25 20:20 FiO2 30 02/16/25 00:00 02/15/25 02/16/25 02/16/25 22:59 06:59 14:59 Intake Total 600 / 1300 100 / 1400 550 / 550 Output Total 800 / 900 100 / 1000 450 / 450 Balance -200 / 400 0 / 400 100 / 100 Weight last 48 hrs Weight 89 kg Weight 89 kg Weight 87.815 kg Weight 88 kg Weight 89 kg Physical Exam 2 Narrative: General: Alert and oriented, AO x 3, sick appearing, sitting up in chair, cold peripheries HEENT: Normocephalic, atraumatic, grossly unremarkable exam Cardio: irregular rhythm and cant comment on the heart sounds due to increased HR, short neck, JVD cant be observed Respiratory: bilateral bronchial breath sounds over lower lung cramer occasional rhonchi GI: Abdomen soft, nontender, mild distention due to bipap air, normoactive bowel sounds present all 4 quadrants, Neuro: intact cranial nerves motor and sensory and cerebellar/coordination function without any focal neurological deficit Behavior: Appropriate and cooperative Extremities: pedal edema +deward, pallor +edward Data 02/16/25 03:56 02/16/25 03:56 Micro: Microbiology 02/15/25 12:50 Gram Stain - Final Sputum - Expectorated Sputum Sputum Culture - Preliminary 02/14/25 01:00 Urine Culture - Final Urine,Clean Catch A&P Assessment and plan 1. Acute hypoxic respiratory failure: Most likely in setting of COPD exacerbation along with mild congestive heart failure. Appreciate CT chest without contrast. Oxygen supplementation keeping saturation over 90%. Continue with Pulmicort twice daily, ipratropium, Xopenex every 6 hour. Continue with Solu-Medrol IV 40 mg every 8 hourly. Plan to wean in next 24 hours. Follow-up sputum culture. BiPAP nightly as needed. Continues to have mild orthopnea. Start on IV Lasix 40 mg one-time. 2. Sepsis secondary to UTI: Follow-up blood cultures, urine culture. MRSA swab negative. Continue with IV Zosyn. Discontinue vancomycin. Maintain mean arterial pressure over 65. If needed can start on Levophed. 3. Atrial fibrillation with rapid ventricular response: Currently in sinus rhythm. Having episodes of paroxysmal A-fib. Telemetry. Appreciate cardiology recommendations. Continue with amiodarone 400 mg twice daily along with metoprolol 25 mg twice daily. Continue with full dose anticoagulation with Lovenox 1 mg/kg body weight every 12 hourly. Given episodes of paroxysmal A-fib discussed in detail with the patient for need for anticoagulation as an outpatient for stroke prevention. After discussing merits versus demerits patient is agreeable. Will plan to transition to [facility] on discharge. 4. Centrilobular emphysema: As above. 5. Acquired hypothyroidism: TSH low. Elevated free T4. Decrease dose of levothyroxine to 100 mcg daily. Patient should have a repeat thyroid panel done in 4 weeks. 6. PVD (peripheral vascular disease): 7. Mixed hyperlipidemia: cont home dose statins 8. Type 2 diabetes mellitus with diabetic polyneuropathy, with long-term current use of insulin: Blood sugars elevated. Add Lantus 30 units every morning. Continue with current sliding scale AC and at bedtime. Patient takes NovoLog 20 units 3 times daily along with sliding scale and Lantus 40 units nightly at home. 9. BPH (benign prostatic hyperplasia): Significant BPH as per patient. Bladder scan. CT abdomen pelvis without contrast. Start on finasteride along with Flomax 0.8 mg daily. If bladder scan shows urine retention for more than 200 cc. Plan for De catheterization. Patient is agreeable. 10. Paroxysmal A-fib: 11. Urinary retention due to benign prostatic hyperplasia: Patient continues to refuse De catheter. Bladder scan and straight cath as needed. Continue with Flomax 0.8 daily, finasteride. Plan: Full code Carb consistent cardiac diet Protonix for PUD prophylaxis Full dose Lovenox will be sufficient for DVT prophylaxis Plan for the day: Follow-up blood culture, sputum culture MRSA swab negative. Continue with IV Zosyn. Maintain mean artery pressure 65. Continue current dose of metoprolol. Continue oral amiodarone 400 mg twice daily. Having episodes of paroxysmal A- fib. Agreeable for anticoagulation. Will plan to discharge on Eliquis 5 mg twice daily. Continue with full dose Lovenox for now. Oxygen supplementation keeping saturation over 90%. Continue current nebulization treatment. Plan to wean steroids in next 24 hours. Out of bed to chair. Continue with frequent bladder scan and possibly De catheterization versus trach catheterization as comfortable for patient. For now he continues to refuse De catheterization. Discussed in detail with the patient multiple times need for De catheterization given retention of urine though he continues to refuse. Transfer to [facility] floor. PDMP PDMP Reviewed: Not Reviewed Attestations 2 Medical Necessity Statement*: Requires further hospitalization for management of hypoxia in setting of COPD exacerbation, Co. acquired pneumonia in a patient with history of lung cancer, sepsis in setting of UTI, pneumonia, paroxysmal A-fib, urinary retention Diagnoses Acute hypoxic respiratory failure J96.01 Sepsis secondary to UTI A41.9; N39.0 Atrial fibrillation with rapid ventricular response I48.91 Centrilobular emphysema J43.2 COPD type: emphysema Emphysema type: centrilobular Acquired hypothyroidism E03.9 Hypothyroidism type: acquired PVD (peripheral vascular disease) I73.9 Mixed hyperlipidemia E78.2 Hyperlipidemia type: mixed hyperlipidemia Type 2 diabetes mellitus with diabetic polyneuropathy, with long-term current use of insulin E11.42; Z79.4 Diabetes mellitus retirement insulin use: with retirement use BPH (benign prostatic hyperplasia) N40.0 Paroxysmal A-fib I48.0 Urinary retention due to benign prostatic hyperplasia N40.1; R33.8
--- NOTE | 2025-02-16 13:00 | PC.NURSE ---
Patient voided 675ml, bladder scan after void revealed 311ml.
[2025-02-16] MEDS: alum-mag-hydroxide-sime 30 mL UDC PO (14:14)
--- NOTE | 2025-02-16 17:35 | PC.NURSE ---
Shift note: Patient on bipap over night, off to room air. Not having shortness of breath as he was yesterday, day shift. Lasix given, Urine out for shift: 1775ml. Refusing De. Patient reports heart burn 07/[address] Leal ordered maalox one time which relieved this. Dr. Arias requested A-fib rhythm strips be printed from shells inspector reporting A-fib, this nurse unable to identify A-fib looking back on shells inspector monitoring. Patient has been in sinus rhythm this shift. Orders to move to medical floor.
[2025-02-17] VITALS (44 sets, daily range): BP systolic 66–158; BP diastolic 48–92; PULSE 78–131; RESP 12–34; TEMP 36.6–36.8; O2SAT 90–100
[2025-02-17] MEDS: piperacillin-tazobactam 3.375 GM in sodium chloride 0.9% (plus) 50 ML IV ×3 (02:34→17:32)
[2025-02-17] MEDS: methylPREDNISolone sod succ 40 mg/mL INJ IVP ×4 (04:01→20:29)
[2025-02-17] MEDS: insulin glargine 100 units/1 mL 30 UNIT SUBCUT (04:02)
[2025-02-17 04:33] LABS: Hematocrit 33.9 % (37-53); Hemoglobin 11.10 g/dL (11.27-16.99); Mean Corpuscular HGB Conc 32.7 g/dL (30-55); Mean Corpuscular Hemoglobin 29.4 pg (27-33); Mean Corpuscular Volume 89.7 fl (82-101); Nucleated Red Blood Cells % 0 %; Platelet Count 344 10^3/cmm (157-399); Red Blood Count 3.78 10^6/uL (3.85-5.65); White Blood Count 20.71 10^3/uL (3.29-11.43)
[2025-02-17 05:03] LABS: Alanine Aminotransferase 9 U/L (0-41); Albumin Level 4.1 g/dL (3.5-5.2); Alkaline Phosphatase 87 U/L (40-130); Anion Gap 17.7 (5-19); Aspartate Amino Transferase 10 U/L (0-40); Blood Urea Nitrogen 17 mg/dL (8-23); Calcium 9.6 mg/dL (8.5-10.5); Carbon Dioxide 25 mmol/L (22-29); Chloride 99 mmol/L (98-107); Globulin 2.9 g/dL (1.3-4.6); Glucose 229 mg/dL (65-115); Osmolality Calculated 295 mOsm/kg (285-295); Potassium 3.7 mmol/L (3.5-5.1); Sodium 138 mmol/L (136-145); Total Protein 7.0 g/dL (6.6-8.7)
[2025-02-17 05:04] LABS: Magnesium 2.1 mg/dL (1.7-2.3)
[2025-02-17 05:07] LABS: Creatinine Clr Calc Pharmacy 82.7083
--- NOTE | 2025-02-17 09:06 | P.PN_ITS ---
<Statement entered by Eryn Ferraro 02/20/25 11:46> Patient was cared for in conjunction with an advanced practice practitioner.? I reviewed the chart and all pertinent data including imaging, telemetry, and laboratory results.? I discussed the patient in detail with the advanced practice practitioner.? Please see?their note for progress note, testing results and agreed upon plan of care for the patient. Subjective 2 Subjective: Received sign out from Dr Arias. Per his review of EKG it shows multifocal atrial tachycardia rather than atrial fibrillation, antiarrhythmic and anticoagulation discontinued. He continues on Lovenox at VTE prophylaxis dosing. He is short of breath with exertion, but otherwise no chest pain, edema. Vitals/I&O/Wt Last Vital Signs Temp 98.2 F 02/17/25 04:00 Pulse 97 02/17/25 08:51 Resp 22 H 02/17/25 08:51 BP 142/72 02/17/25 04:00 Pulse Ox 95 02/17/25 08:51 O2 Del Method Nasal Cannula 02/17/25 08:51 O2 Flow Rate 2 02/17/25 08:51 FiO2 30 02/17/25 01:05 02/16/25 02/17/25 02/17/25 22:59 06:59 14:59 Intake Total 590 / 1890 300 / 1890 Output Total 1100 / 2625 400 / 2625 Balance -510 / -735 -100 / -735 Weight last 48 hrs Weight 195 lb 1.745 oz Weight 196 lb 3.382 oz Weight 196 lb 3.382 oz Physical Exam 2 Const: COMMON NORMALS: no acute distress and patient oriented x3 GENERAL APPEARANCE: cooperative and comfortable ORIENTATION/CONSCIOUSNESS: Yes awake, Yes oriented to person, Yes oriented to place and Yes oriented to time Chest: COMMONS NORMALS: normal inspection of the chest and normal palpation of entire chest wall CHEST: Yes Symmetrical chest wall rise Resp: COMMON NORMALS: normal respiratory effort, No retractions and No use of accessory muscles EFFORT & INSPECTION: Yes symmetric chest movement A USCULTATION: rhonchi Cardio: COMMON NORMALS: regular rate, S1 normal heart sound present, S2 normal heart sound present, No gallops present (Cardio), No clicks present (Cardio), No murmurs present (Cardio) and No rub (Cardio) RATE: regular rate RHYTHM: a bnormal rhythm irregularly irregular (MAT) HEART SOUNDS: S1 normal heart sound present and S2 normal heart sound present PERIPHERAL PULSES: radial pulses present Extremity: COMMON NORMALS: no pedal edema Neuro: COMMON NORMALS: patient oriented x3 and moves all extremities S ENSORIUM/ORIENTATION: Yes oriented to person, Yes oriented to place and Yes oriented to time Data 02/17/25 04:02 02/17/25 04:02 Micro: Microbiology 02/16/25 15:01 Blood Culture - Preliminary Blood SPECIMEN COLLECTED 02/16/25 15:00 Blood Culture - Preliminary Blood SPECIMEN COLLECTED 02/14/25 00:44 Blood Culture - Preliminary Blood Staphylococcus sp coag neg 02/15/25 12:50 Gram Stain - Final Sputum - Expectorated Sputum Sputum Culture - Preliminary 02/14/25 01:00 Urine Culture - Final Urine,Clean Catch A&P Assessment and plan 1. Multifocal atrial tachycardia: 2. KAUR (dyspnea on exertion): 3. Type 2 diabetes mellitus with diabetic polyneuropathy, with long-term current use of insulin: 4. Sepsis secondary to UTI: 5. Malignant neoplasm of upper lobe, right bronchus or lung: Plan: Does not require anticoagulation with this rhythm, as it does not carry a stroke risk. Continue metoprolol tartrate 25mg BID, as he has good rate control. No further cardiac testing recommended. PDMP PDMP Reviewed: Not Reviewed Attestations 2 Medical Necessity Statement*: per hospitalist Coding Level of Care Code Acute Code for [facility] Fwd Diagnoses Multifocal atrial tachycardia I47.19 KAUR (dyspnea on exertion) R06.09 Type 2 diabetes mellitus with diabetic polyneuropathy, with long-term current use of insulin E11.42; Z79.4 Diabetes mellitus terminal superintendent insulin use: with fpc use Sepsis secondary to UTI A41.9; N39.0 Malignant neoplasm of upper lobe, right bronchus or lung C34.11
[2025-02-17] MEDS: sennosides-docusate Tablet 1 TAB PO ×2 (09:09→17:25)
--- NOTE | 2025-02-17 10:28 | PC.NURSE ---
Addendum entered by Mati Ojeda RN 02/17/25 15:01: About 15 minutes after cardizem administered, patients heart rate had slowed into the mid 90's. Controlled afib. Original Note: Patients heart rate has become elevated over last hour. AFIB. approximately 130. Asymptomatic. Nurse alerted Dr spivey. Received orders for 10mg IVP cardizem. Pharmacy communication - Interaction between pletal and cardizem noted. Could cause bradycardia. Nurse contact pharmacist Saray dumontss interaction. Per pharmacist, the low dose of cardizem along with telemetry is appropriate to give with pletal. HIgher doses of cardizem will require closer attention or possible discontinuation.
[2025-02-17] MEDS: dilTIAZem 5 mg/mL SDV 5 mL 10 MG IVP (10:55)
--- NOTE | 2025-02-17 13:32 | XR_ITS ---
WS: [id number] Portable AP upright chest, 02/17/2025 Clinical Data: sob Comparison: Portable chest, 02/14/2025 Findings: There are bilateral hilar opacities which may represent atelectasis and/or pneumonia. The costophrenic angles show minimal blunting. The heart is normal. No pneumothorax is seen. There is patchy opacity throughout both lungs which may represent chronic interstitial disease, atelectasis and/or pneumonia. The aortic arch shows calcification. There is a monitor lead on the right chest and right abdomen wall. XR/XR chest 1V portable [id number] Impression: 1. Bilateral hilar atelectasis versus pneumonia. 2. Bilateral pulmonary opacities which may represent atelectasis and/or pneumon ia. 3. Atherosclerosis.
--- NOTE | 2025-02-17 13:39 | PM.PN ---
Subjective Subjective: No acute events overnight. Today morning seen with spouse at bedside. Patient complaining of difficulty in breathing today. States today morning he is feeling slightly rough. Patient is visibly out of breath and in mild distress. Took off nasal cannula by himself 30 minutes prior to examination and saturating 87% on room air. Vitals/I&O/Wt Last Vital Signs Temp 98.2 F 02/17/25 04:00 Pulse 97 02/17/25 08:51 Resp 22 H 02/17/25 08:51 BP 142/72 02/17/25 04:00 Pulse Ox 95 02/17/25 08:51 O2 Del Method Nasal Cannula 02/17/25 08:51 O2 Flow Rate 2 02/17/25 08:51 FiO2 30 02/17/25 01:05 02/16/25 02/17/25 02/17/25 22:59 06:59 14:59 Intake Total 590 / 1590 300 / 1890 350 / 350 Output Total 1100 / 2225 400 / 2625 Balance -510 / -635 -100 / -735 350 / 350 Weight last 48 hrs Weight 88.5 kg Weight 89 kg Weight 89 kg Physical Exam Narrative: General: Alert and oriented, AO x 3, sick appearing, sitting up in chair, cold peripheries HEENT: Normocephalic, atraumatic, grossly unremarkable exam Cardio: irregular rhythm and cant comment on the heart sounds due to increased HR, short neck, JVD cant be observed Respiratory: bilateral bronchial breath sounds over lower lung cramer occasional rhonchi GI: Abdomen soft, nontender, mild distention due to bipap air, normoactive bowel sounds present all 4 quadrants, Neuro: intact cranial nerves motor and sensory and cerebellar/coordination function without any focal neurological deficit Behavior: Appropriate and cooperative Extremities: pedal edema +edward, pallor +edward Urinary Catheter Management: De: Cath Placed During This Visit: no Reason for Continuing Indwelling Catheter: Not indwelling catheter Data 02/17/25 04:02 02/17/25 04:02 Micro: Microbiology 02/15/25 12:50 Gram Stain - Final Sputum - Expectorated Sputum Sputum Culture - Final 02/16/25 15:01 Blood Culture - Preliminary Blood SPECIMEN COLLECTED 02/16/25 15:00 Blood Culture - Preliminary Blood SPECIMEN COLLECTED 02/14/25 00:44 Blood Culture - Preliminary Blood Staphylococcus sp coag neg 02/14/25 01:00 Urine Culture - Final Urine,Clean Catch A&P Assessment and plan 1. Acute hypoxic respiratory failure: Most likely in setting of COPD exacerbation along with mild congestive heart failure. Appreciate CT chest without contrast. Oxygen supplementation keeping saturation over 90%. Continue with Pulmicort twice daily, ipratropium, Xopenex every 6 hour. Solu-Medrol was weaned down to 40 mg twice daily yesterday. Patient visibly out of bed today. Will increase to 3 times daily again. Chest x-ray. Check proBNP. IV Lasix 40 mg one-time. Follow-up sputum culture. BiPAP nightly as needed. Patient complaining of mild hemoptysis. Check CTA chest. Depending on the result will consult pulmonology. 2. Sepsis secondary to UTI: Follow-up blood cultures, urine culture. MRSA swab negative. Continue with IV Zosyn. Discontinue vancomycin. Maintain mean arterial pressure over 65. 3. Atrial fibrillation with rapid ventricular response: Currently in sinus rhythm. Discussed symptoms with cardiology. No concern for paroxysmal A-fib rather MAT. Appreciate recommendations. Amiodarone discontinued. Full dose anticoagulation discontinued. Continue with metoprolol 25 mg twice daily. The patient continues to have episodes of tachycardia will increase the dose of metoprolol. 4. Centrilobular emphysema: As above. 5. Acquired hypothyroidism: TSH low. Elevated free T4. Decrease dose of levothyroxine to 100 mcg daily. Patient should have a repeat thyroid panel done in 4 weeks. 6. PVD (peripheral vascular disease): 7. Mixed hyperlipidemia: cont home dose statins 8. Type 2 diabetes mellitus with diabetic polyneuropathy, with long-term current use of insulin: Blood sugars better controlled. Continue with sliding scale and Lantus 30 units every morning. Patient takes NovoLog 20 units 3 times daily along with sliding scale and Lantus 40 units nightly at home. 9. BPH (benign prostatic hyperplasia): Significant BPH as per patient. Bladder scan. CT abdomen pelvis without contrast. Continue with finasteride along with Flomax 0.8 mg daily. Patient continues to remain reluctant for De catheter. 10. Urinary retention due to benign prostatic hyperplasia: Patient continues to refuse De catheter. Bladder scan and straight cath as needed. Continue with Flomax 0.8 daily, finasteride. 11. Multifocal atrial tachycardia: Plan: Full code Carb consistent cardiac diet Protonix for PUD prophylaxis Lovenox for DVT prophylaxis PDMP PDMP Reviewed: Not Reviewed Attestations Medical Necessity Statement*: Requires further hospitalization for management of hypoxia in setting of COPD exacerbation, community acquired pneumonia in a patient with history of lung cancer, sepsis in setting of UTI, Diagnoses Acute hypoxic respiratory failure J96.01 Sepsis secondary to UTI A41.9; N39.0 Atrial fibrillation with rapid ventricular response I48.91 Centrilobular emphysema J43.2 COPD type: emphysema Emphysema type: centrilobular Acquired hypothyroidism E03.9 Hypothyroidism type: acquired PVD (peripheral vascular disease) I73.9 Mixed hyperlipidemia E78.2 Hyperlipidemia type: mixed hyperlipidemia Type 2 diabetes mellitus with diabetic polyneuropathy, with long-term current use of insulin E11.42; Z79.4 Diabetes mellitus skilled nursing insulin use: with skilled nursing use BPH (benign prostatic hyperplasia) N40.0 Urinary retention due to benign prostatic hyperplasia N40.1; R33.8 Multifocal atrial tachycardia I47.19
--- NOTE | 2025-02-17 13:45 | CTR_ITS ---
PROCEDURE INFORMATION: Exam: CTA Chest With Contrast Exam date and time: 02/17/2025 4:04 PM Age: 79 years old Clinical indication: Pain; Chest pressure; Prior surgery; Surgery date: 6+ months; Surgery type: Stent placement; SOB, sepsis, UTI, HX RT upp lobe cancer/pneumonia/hemoptysis; Additional info: History of right upper lobe cancer, pneumonia, hemoptysis TECHNIQUE: Imaging protocol: Computed tomographic angiography of the chest with contrast. Exam focused on the arteries. 3D rendering (Not supervised by radiologist): MIP and/or 3D reconstructed images were created by the technologist. Radiation optimization: All CT scans at this facility use at least one of these dose optimization techniques: automated exposure control; mA and/or kV adjustment per patient size (includes targeted exams where dose is matched to clinical indication); or iterative reconstruction. Contrast material: [id number]; Contrast volume: 71 ml; Contrast route: INTRAVENOUS (IV); COMPARISON: [place] [id number] 02/15/2025 12:35 PM RADIATION DOSE METRICS: Total DLP (mGy-cm): 439.75 FINDINGS: Pulmonary arteries: Normal. No pulmonary emboli. Aorta: Unremarkable. No aortic aneurysm. No aortic dissection. Lungs: There is a large collection of fibrosis and atelectasis involving the right upper lobe medially. In addition, there is extensive consolidation involving the right middle lobe also with associated atelectasis. Some of the consolidation involving the superior aspect of the right lower lobe. A 1.7 cm nodule is noted in the lateral aspect of the left lower lobe. Pleural spaces: Moderate bilateral pleural effusions are noted. Heart: Unremarkable. No cardiomegaly. No pericardial effusion. Lymph nodes: There is prominent adenopathy noted throughout the mediastinum and both camilo. The hilar adenopathy causes mild narrowing of the pulmonary artery branches as well as multiple bronchi. The left hilar adenopathy is much more prominent than right and appears to infiltrate medially into the subcarinal space. Bones/joints: Unremarkable. No acute fracture. Soft tissues: Unremarkable. CT/CT angio chest PE protcl [id number] IMPRESSION: 1. I see no significant roll changer the past 2 days 2. There is persistent hilar tumor causing some narrowing of the pulmonary arteries and bronchi 3. Stable left lung nodule 4. Stable extensive right lung consolidation and volume loss 5. Stable pleural effusions
[2025-02-17 14:12] LABS: NT Pro B Type Natriuretic Pept 1374 pg/mL (0-450)
[2025-02-17] MEDS: FUROsemide 10 mg/mL SDV 4mL 40 MG IVP (15:29)
[2025-02-17] MEDS: iohexol 350 mg/mL 500 mL Btl (per mL) IV (16:11)
--- NOTE | 2025-02-17 19:23 | PC.NURSE ---
SHift Summary: Uneventful shift. Up to a chair for most of the day. Brief period of tachycardia (HR in the 130's). Quickly resolved with cardizem push. Becomes short of breath if off of 2L NC. FLuid restriction of 1500mL. tracking 0700 to 0700 Intake for day shift: 950, leaving 650mL for overnight Output: 1900mL
[2025-02-18] VITALS (16 sets, daily range): BP systolic 124–157; BP diastolic 55–80; PULSE 80–98; RESP 12–19; TEMP 36.4–36.7; O2SAT 95–100
[2025-02-18] MEDS: piperacillin-tazobactam 3.375 GM in sodium chloride 0.9% (plus) 50 ML IV ×3 (03:05→17:54)
[2025-02-18] MEDS: methylPREDNISolone sod succ 40 mg/mL INJ IVP ×3 (03:05→19:38)
[2025-02-18 05:17] LABS: Hematocrit 32.0 % (37-53); Hemoglobin 10.10 g/dL (11.27-16.99); Mean Corpuscular HGB Conc 31.6 g/dL (30-55); Mean Corpuscular Hemoglobin 28.0 pg (27-33); Mean Corpuscular Volume 88.6 fl (82-101); Nucleated Red Blood Cells % 0 %; Platelet Count 348 10^3/cmm (157-399); Red Blood Count 3.61 10^6/uL (3.85-5.65); White Blood Count 15.37 10^3/uL (3.29-11.43)
[2025-02-18] MEDS: insulin glargine 100 units/1 mL 30 UNIT SUBCUT (05:23)
[2025-02-18] MEDS: sennosides-docusate Tablet 1 TAB PO ×2 (05:23→17:55)
[2025-02-18 05:44] LABS: Alanine Aminotransferase 26 U/L (0-41); Albumin Level 3.5 g/dL (3.5-5.2); Alkaline Phosphatase 80 U/L (40-130); Anion Gap 14.9 (5-19); Aspartate Amino Transferase 24 U/L (0-40); Blood Urea Nitrogen 21 mg/dL (8-23); Calcium 9.3 mg/dL (8.5-10.5); Carbon Dioxide 29 mmol/L (22-29); Chloride 102 mmol/L (98-107); Creatinine Clr Calc Pharmacy 82.1392; Globulin 3.2 g/dL (1.3-4.6); Glucose 251 mg/dL (65-115); Osmolality Calculated 305 mOsm/kg (285-295); Potassium 3.9 mmol/L (3.5-5.1); Sodium 142 mmol/L (136-145); Total Protein 6.7 g/dL (6.6-8.7)
[2025-02-18 05:47] LABS: Magnesium 2.5 mg/dL (1.7-2.3)
--- NOTE | 2025-02-18 11:09 | PM.PN ---
Subjective Subjective: No acute events overnight. States he is feeling a lot better. Seen with spouse at bedside on MedSurg floor today. On 2 L saturating more than 95% during examination seen getting ready to take a shower on room air. Vitals/I&O/Wt Last Vital Signs Temp 97.6 F 02/18/25 08:00 Pulse 90 02/18/25 08:17 Resp 18 02/18/25 08:17 BP 157/72 02/18/25 08:00 Pulse Ox 95 02/18/25 08:17 O2 Del Method Nasal Cannula 02/18/25 08:17 O2 Flow Rate 2 02/18/25 08:17 FiO2 30 02/18/25 02:55 02/17/25 02/18/25 02/18/25 22:59 06:59 14:59 Intake Total 1160 / 1760 410 / 410 Output Total 1900 / 1900 Balance -740 / -140 410 / 410 Weight last 48 hrs Weight 87.634 kg Weight 88.5 kg Physical Exam Narrative: General: Alert and oriented, AO x 3,, sitting up in chair, cold peripheries HEENT: Normocephalic, atraumatic, grossly unremarkable exam Cardio: irregular rhythm and cant comment on the heart sounds due to increased HR, short neck, JVD cant be observed Respiratory: bilateral bronchial breath sounds over lower lung cramer occasional rhonchi GI: Abdomen soft, nontender, mild distention due to bipap air, normoactive bowel sounds present all 4 quadrants, Neuro: intact cranial nerves motor and sensory and cerebellar/coordination function without any focal neurological deficit Behavior: Appropriate and cooperative Extremities: pedal edema +edward, pallor +edward Urinary Catheter Management: De: Cath Placed During This Visit: no Reason for Continuing Indwelling Catheter: Not indwelling catheter Data 02/18/25 04:48 02/18/25 04:48 Micro: Microbiology 02/16/25 15:01 Blood Culture - Preliminary Blood NEGATIVE TO DATE 02/16/25 15:00 Blood Culture - Preliminary Blood NEGATIVE TO DATE 02/15/25 12:50 Gram Stain - Final Sputum - Expectorated Sputum Sputum Culture - Final A&P Assessment and plan 1. Acute hypoxic respiratory failure: Most likely in setting of COPD exacerbation along with mild congestive heart failure. Appreciate CT chest without contrast. Oxygen supplementation keeping saturation over 90%. Continue with Pulmicort twice daily, ipratropium, Xopenex every 6 hour. Solu-Medrol was weaned down to 40 mg twice daily yesterday. Patient visibly out of bed today. Will increase to 3 times daily again. Chest x-ray. Check proBNP. IV Lasix 40 mg one-time. Follow-up sputum culture. BiPAP nightly as needed. Patient complaining of mild hemoptysis. Check CTA chest. Depending on the result will consult pulmonology. 2. Sepsis secondary to UTI: Follow-up blood cultures, urine culture. MRSA swab negative. Continue with IV Zosyn. Discontinue vancomycin. Maintain mean arterial pressure over 65. 3. Atrial fibrillation with rapid ventricular response: Currently in sinus rhythm. Discussed symptoms with cardiology. No concern for paroxysmal A-fib rather MAT. Appreciate recommendations. Amiodarone discontinued. Full dose anticoagulation discontinued. Continue with metoprolol 25 mg twice daily. The patient continues to have episodes of tachycardia will increase the dose of metoprolol. 4. Centrilobular emphysema: As above. 5. Acquired hypothyroidism: TSH low. Elevated free T4. Decrease dose of levothyroxine to 100 mcg daily. Patient should have a repeat thyroid panel done in 4 weeks. 6. PVD (peripheral vascular disease): 7. Mixed hyperlipidemia: cont home dose statins 8. Type 2 diabetes mellitus with diabetic polyneuropathy, with long-term current use of insulin: Blood sugars better controlled. Continue with sliding scale and Lantus 30 units every morning. Patient takes NovoLog 20 units 3 times daily along with sliding scale and Lantus 40 units nightly at home. 9. BPH (benign prostatic hyperplasia): Significant BPH as per patient. Bladder scan. CT abdomen pelvis without contrast. Continue with finasteride along with Flomax 0.8 mg daily. Patient continues to remain reluctant for De catheter. 10. Urinary retention due to benign prostatic hyperplasia: Patient continues to refuse De catheter. Bladder scan and straight cath as needed. Continue with Flomax 0.8 daily, finasteride. 11. Multifocal atrial tachycardia: Plan: Full code Carb consistent cardiac diet Protonix for PUD prophylaxis Lovenox for DVT prophylaxis Plan for the day: Continue with oxygen supplementation keeping saturation over 88%. Heart rate stable. Patient's blood pressures tolerated increase in metoprolol. Continue with 50 mg twice daily. Goal blood pressure less than 140/90 [place]. If continues to remain elevated we will plan to start losartan. Continue with IV vancomycin to finish a 5-day course for postobstructive pneumonia. High concern for recurrence of malignancy. Patient will need to follow-up with oncology as an outpatient. Continue nebulization treatment. Continue with Solu-Medrol 40 mg every 8 hourly. Will plan to wean in next 24 hours. Blood sugars elevated. Could be in setting of steroids. Change Lantus to 25 units twice daily. Change sliding scale to moderate dose. Discharge plan: Plan to discharge home after completion of 5 days of IV antibiotics on steroid taper and nebulization treatment with advised to follow-up with oncology as an outpatient. Will need home O2 evaluation prior to discharge. Patient will benefit from nebulizer at home. PDMP PDMP Reviewed: Not Reviewed Attestations Medical Necessity Statement*: Requires further hospitalization for management of hypoxic respiratory failure in setting of postobstructive pneumonia, COPD exacerbation in setting of recurrence of lung malignancy Diagnoses Acute hypoxic respiratory failure J96.01 Sepsis secondary to UTI A41.9; N39.0 Atrial fibrillation with rapid ventricular response I48.91 Centrilobular emphysema J43.2 COPD type: emphysema Emphysema type: centrilobular Acquired hypothyroidism E03.9 Hypothyroidism type: acquired PVD (peripheral vascular disease) I73.9 Mixed hyperlipidemia E78.2 Hyperlipidemia type: mixed hyperlipidemia Type 2 diabetes mellitus with diabetic polyneuropathy, with long-term current use of insulin E11.42; Z79.4 Diabetes mellitus continuous churn buttermaker insulin use: with continuous churn buttermaker use BPH (benign prostatic hyperplasia) N40.0 Urinary retention due to benign prostatic hyperplasia N40.1; R33.8 Multifocal atrial tachycardia I47.19
--- NOTE | 2025-02-18 16:49 | P.PN_ITS ---
<Statement entered by Cornell Hoover M.D - 02/20/25 11:53> Patient was cared for in conjunction with an advanced practice practitioner.? I reviewed the chart and all pertinent data including imaging, telemetry, and laboratory results.? I discussed the patient in detail with the advanced practice practitioner.? Please see?their note for progress note, testing results and agreed upon plan of care for the patient. Subjective 2 Subjective: He is doing much better today. Shortness of breath continuing to improve. Vitals/I&O/Wt Last Vital Signs Temp 98.0 F 02/18/25 15:47 Pulse 91 02/18/25 15:47 Resp 18 02/18/25 15:47 BP 133/65 02/18/25 15:47 Pulse Ox 95 02/18/25 15:47 O2 Del Method Room Air 02/18/25 15:47 O2 Flow Rate 2 02/18/25 14:40 FiO2 30 02/18/25 02:55 02/18/25 02/18/25 02/18/25 06:59 14:59 22:59 Intake Total 820 / 820 Balance 820 / 820 Weight last 48 hrs Weight 193 lb 3.2 oz Weight 195 lb 1.745 oz Physical Exam 2 Const: COMMON NORMALS: no acute distress and patient oriented x3 GENERAL APPEARANCE: cooperative and comfortable ORIENTATION/CONSCIOUSNESS: Yes awake, Yes oriented to person, Yes oriented to place and Yes oriented to time Chest: COMMONS NORMALS: normal inspection of the chest and normal palpation of entire chest wall CHEST: Yes Symmetrical chest wall rise Resp: COMMON NORMALS: normal respiratory effort, No retractions and No use of accessory muscles EFFORT & INSPECTION: Yes symmetric chest movement A USCULTATION: rhonchi (scattered, improved from yesterday) Cardio: COMMON NORMALS: regular rate, regular rhythm, S1 normal heart sound present, S2 normal heart sound present, No gallops present (Cardio), No clicks present (Cardio), No murmurs present (Cardio) and No rub (Cardio) RATE: r egular rate RHYTHM: regular rhythm HEART SOUNDS: S1 normal heart sound present and S2 normal heart sound present PERIPHERAL PULSES: radial pulses present Extremity: COMMON NORMALS: no pedal edema Neuro: COMMON NORMALS: patient oriented x3 and moves all extremities S ENSORIUM/ORIENTATION: Yes oriented to person, Yes oriented to place and Yes oriented to time Urinary Catheter Management: De: Cath Placed During This Visit: no Reason for Continuing Indwelling Catheter: Not indwelling catheter Data 02/18/25 04:48 02/18/25 04:48 Micro: Microbiology 02/14/25 00:44 Blood Culture - Final Blood Staphylococcus capitis subsp c 02/16/25 15:01 Blood Culture - Preliminary Blood NEGATIVE TO DATE 02/16/25 15:00 Blood Culture - Preliminary Blood NEGATIVE TO DATE A&P Assessment and plan 1. Multifocal atrial tachycardia: 2. KAUR (dyspnea on exertion): 3. Sepsis secondary to UTI: Plan: Improving, heart rate better with uptitration of metoprolol. Will sign off, discharge is planned. Follow up with Dr Hoover at regular clinic visit scheduled in March. PDMP PDMP Reviewed: Not Reviewed Attestations 2 Medical Necessity Statement*: per hospitalist Coding Level of Care Code Acute Code for [facility] Fwd Diagnoses Multifocal atrial tachycardia I47.19 KAUR (dyspnea on exertion) R06.09 Sepsis secondary to UTI A41.9; N39.0
[2025-02-18] MEDS: insulin glargine 100 units/1 mL 25 UNIT SUBCUT (17:55)
[2025-02-19] VITALS (9 sets, daily range): BP systolic 147–163; BP diastolic 65–82; PULSE 76–90; RESP 16–18; TEMP 36.4–36.6; O2SAT 86–97
[2025-02-19] MEDS: methylPREDNISolone sod succ 40 mg/mL INJ IVP ×2 (02:46→11:10)
[2025-02-19] MEDS: piperacillin-tazobactam 3.375 GM in sodium chloride 0.9% (plus) 50 ML IV (02:47)
[2025-02-19] MEDS: sennosides-docusate Tablet 1 TAB PO (04:55)
[2025-02-19] MEDS: insulin glargine 100 units/1 mL 25 UNIT SUBCUT (04:55)
--- NOTE | 2025-02-19 09:04 | PC.SOCIAL ---
IMM Update pg 2 of IMM Updated and reviewed w/ patient. Copy provided and copy dated, initialed and placed in chart.
--- NOTE | 2025-02-19 11:23 | P.DS_ITS ---
Discharge Providers Date of Admission: 02/14/25 01:38 Date of Discharge: February 19, 2025 Attending Provider at Admission: Mookie Ya MD Attending Provider at Discharge: Zonia Feliciano MD Consults: Consults to cardiology Primary Care Provider: Shavonne Biswas MD Diagnoses at Discharge Discharge Diagnosis 1. Acute hypoxic respiratory failure: Details from hospital stay: Multifactorial due to COPD exacerbation, acute diastolic CHF exacerbation, and postobstructive pneumonia. Noted to have hilar tumor causing narrowing of pulmonary arteries and bronchi Discharged home on 2 L/min O2 2. COPD exacerbation: Details from hospital stay: Discharged home on prednisone taper and nebs 3. Lung mass: Details from hospital stay: He has a history of lung cancer. Imaging was concerning for recurrence of cancer. Lytic lesions noted in T11 and T12 vertebral body. He has follow-up appointments with oncology. 4. Postobstructive pneumonia: Details from hospital stay: He completed 5 days of antibiotics for this. 5. Multifocal atrial tachycardia: Details from hospital stay: Initially thought to have A-fib but cardiology cardiology noted that it was MAT. 6. KAUR (dyspnea on exertion): 7. Urinary retention due to benign prostatic hyperplasia: 8. Hypothyroid: 9. Mixed hyperlipidemia: 10. Type 2 diabetes mellitus with diabetic polyneuropathy, with long-term current use of insulin: Reason for Visit Reason for Visit: Weakness, Tremors, Fever Brief History: This is an 79-year-old male with COPD, history of lung cancer previously in remission, history of bladder cancer, CAD status post PCI, PAD status post stents, DM2, hyperlipidemia, hypothyroidism, and BPH who presented with fever, chills, and fatigue. He also reported shortness of breath. He was diagnosed with a UTI a few days prior to admission but did not get antibiotics. He was found to have acute hypoxic respiratory failure and was initially BiPAP dependent. Imaging was concerning for recurrent lung cancer with p ostobstructive pneumonia. Also noted to have lytic lesions in T11 and T12. Hospital Course Hospital Course He was treated for COPD exacerbation with IV steroids and nebs. He received 5 days of antibiotics for his postobstructive pneumonia. He was also treated for acute diastolic failure with diuretics. He was discharged home on a prednisone taper and neb treatments. He has a follow-up appointment with oncology. He was tachycardic on admission, initially thought to be atrial fibrillation with RVR. Cardiology was consulted and thought that he had multifocal atrial tachycardia. He was started on metoprolol. His heart rate is now controlled. Urine culture was negative for UTI. He had urinary retention secondary to his BPH. He declined De catheter. He was started on finasteride and tamsulosin. Physical Exam Const: COMMON NORMALS: no acute distress, patient oriented x3 and alert GENERAL APPEARANCE: cooperative ORIENTATION/CONSCIOUSNESS: Yes awake HENMT: COMMON NORMALS: normocephalic, atraumatic and oropharynx normal HEAD & SCALP: normocephalic and atraumatic Eye: COMMON NORMALS: Equal, round and reactive pupils present and EOMs intact bilaterally PUPIL: Yes Equal, round and reactive pupils present Neck/C-Spine: COMMON NORMALS: supple and no JVD Resp: COMMON NORMALS: normal respiratory effort and clear to auscultation bilaterally AUSCULTATION: clear to auscultation bilaterally Cardio: COMMON NORMALS: no JVD, regular rhythm, S1 normal heart sound present, S2 normal heart sound present and No murmurs present (Cardio) RHYTHM: regular rhythm HEART SOUNDS: S1 normal heart sound present and S2 normal heart sound present GI: COMMON NORMALS: Normal to inspection, nondistended, normoactive bowel sounds present, Soft to palpation and non-tender PALPATION: Yes Soft to palpation : COMMON NORMALS: Yes no CVA tenderness BLADDER/KIDNEY EXAM: Yes no CVA tenderness Back/Pelvis: COMMON NORMALS: no CVA tenderness Extremity: COMMON NORMALS: no joint enlargement and no pedal edema Neuro: COMMON NORMALS: patient oriented x3, moves all extremities and no focal motor deficits SENSORIUM/ORIENTATION: Yes alert Psych: COMMON NORMALS: Normal thought process present and denies hallucinations THOUGHT PROCESS: Normal thought process present Skin: COMMON NORMALS: no rashes or lesions noted GENERAL SKIN EXAM: no rashes or lesions noted Urinary Catheter Management: De: Cath Placed During This Visit: no Reason for Continuing Indwelling Catheter: Not indwelling catheter Discharge Data Studies Completed and Pending Completed Studies During Hospitalization Category Date Time Status CT chest abdomen pelvis [[place] [id number] Cat Scan 02/15/25 11:37 Completed ] Routine CTA chest [CT angio chest PE protcl [id number]] Routine Cat Scan 02/17/25 13:45 Completed XR chest 1V portable [id number] Routine Exams 02/17/25 13:32 Completed XR chest 1V portable [id number] Stat Exams 02/14/25 00:24 Completed CV. echo complete* [id number] Routine Ultrasound 02/14/25 03:28 Completed Pending at discharge Category Date Time Status Blood Culture Stat Lab 02/16/25 15:01 Results Radiology Impressions Chest/Abdomen/Pelvis CT 02/15/25 11:37 IMPRESSION: 1. Redemonstration of process in the right upper lung medially as well as right perihilar region with bronchiectasis, fibrosis and consolidations related to the patient's known neoplasm. However there is increased adjacent consolidation, scattered ground-glass and interstitial thickening. Although findings may relate to superimposed infectious/inflammatory etiologies, can not exclude recurrence of neoplasm. 2. Prominent mediastinal and hilar lymph nodes. 3. Moderate bilateral pleural effusions with adjacent compressive atelectasis. 4. Lytic lesions within the T11 and T12 vertebral body. IMPRESSION: 1. No evidence of mass or lymphadenopathy within the abdomen or pelvis. 2. 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 Chest X-Ray 02/17/25 13:32 Impression: 1. Bilateral hilar atelectasis versus pneumonia. 2. Bilateral pulmonary opacities which may represent atelectasis and/or pneumonia. 3. Atherosclerosis. Chest CTA 02/17/25 13:45 IMPRESSION: 1. I see no significant microsoft exchange architect the past 2 days 2. There is persistent hilar tumor causing some narrowing of the pulmonary arteries and bronchi 3. Stable left lung nodule 4. Stable extensive right lung consolidation and volume loss 5. Stable pleural effusions Laboratory Results WBC 15.37 10^3/uL (3.29-11.43) H 02/18/25 04:48 RBC 3.61 10^6/uL (3.85-5.65) L 02/18/25 04:48 Hgb 10.10 g/dL (11.27-16.99) L 02/18/25 04:48 Hct 32.0 % (37-53) L 02/18/25 04:48 MCV 88.6 fl (82-101) 02/18/25 04:48 MCH 28.0 pg (27-33) 02/18/25 04:48 MCHC 31.6 g/dL (30-55) 02/18/25 04:48 RDW 15.8 % (12.1-15.1) H 02/18/25 04:48 Plt Count 348 10^3/cmm (157-399) 02/18/25 04:48 MPV 9.3 fL (7.4-10.4) 02/18/25 04:48 Neut % (Auto) 91.0 % 02/18/25 04:48 Lymph % (Auto) 2.9 % 02/18/25 04:48 Mckinley % (Auto) 4.9 % 02/18/25 04:48 Eos % (Auto) 0.0 % 02/18/25 04:48 Baso % (Auto) 0.1 % 02/18/25 04:48 Neut # (Auto) 13.97 10^3/uL (1.8-7.7) H 02/18/25 04:48 Lymph # (Auto) 0.5 10^3/uL (0.8-4.8) L 02/18/25 04:48 Mckinley # (Auto) 0.8 10^3/uL (0.2-0.9) 02/18/25 04:48 Eos # (Auto) 0.0 10^3/uL (0.0-0.8) 02/18/25 04:48 Baso # (Auto) 0.0 10^3/uL (0.0-0.1) 02/18/25 04:48 Nucleated RBC % (auto) 0 % 02/18/25 04:48 Nucleated RBCs # 0.0 /100WBC 02/18/25 04:48 Specimen Type Arterial 02/14/25 02:00 Sample Site Radial, right 02/14/25 02:00 ABG pH 7.33 (7.35-7.45) L 02/14/25 02:00 ABG pCO2 42.7 mmHg (35-45) 02/14/25 02:00 ABG pO2 401.0 mmHg (80.0-100.0) H 02/14/25 02:00 ABG PO2/FiO2 Ratio 401 02/14/25 02:00 ABG HCO3 22.4 mmol/L (22-26) 02/14/25 02:00 ABG Base Excess -3.5 mmol/L (-2.0-2.0) L 02/14/25 02:00 Syed Test Pos 02/14/25 02:00 Hematocrit 38.5 % (42-52) L 02/14/25 02:00 O2 Delivery Device Bipap 02/14/25 02:00 FiO2 100.0 % 02/14/25 02:00 Evidence Specialist ID [email or web address] 02/14/25 02:00 Sodium 142 mmol/L (136-145) 02/18/25 04:48 Potassium 3.9 mmol/L (3.5-5.1) 02/18/25 04:48 Chloride 102 mmol/L (98-107) 02/18/25 04:48 Carbon Dioxide 29 mmol/L (22-29) 02/18/25 04:48 Anion Gap 14.9 (5-19) 02/18/25 04:48 BUN 21 mg/dL (8-23) 02/18/25 04:48 Creatinine 0.6 mg/dL (0.7-1.2) L 02/18/25 04:48 GFR Calculation Not Reportable 02/18/25 04:48 Glucose 251 mg/dL (65-115) H 02/18/25 04:48 POC Glucose 295 mg/dL (70-110) H 02/19/25 10:26 Estimat Average Glucose 157 02/14/25 04:25 Hemoglobin A1c 7.1 % (4.0-6.0) H 02/14/25 04:25 Calculated Osmolality 305 mOsm/kg (285-295) H 02/18/25 04:48 Lactic Acid 2.4 mmol/L (0.5-2.2) H 02/14/25 00:00 Lactate 1.5 mmol/L (0.5-2.2) 02/14/25 04:25 Calcium 9.3 mg/dL (8.5-10.5) 02/18/25 04:48 Magnesium 2.5 mg/dL (1.7-2.3) H 02/18/25 04:48 Iron 15 ug/dL (59-158) L 02/14/25 04:25 TIBC 222 mcg/dl 02/14/25 04:25 % Saturation 6.7 % (20-50) L 02/14/25 04:25 Unsat Iron Binding 207 ug/dL (112-347) 02/14/25 04:25 Total Bilirubin 0.3 mg/dL (0.15-1.2) 02/18/25 04:48 AST 24 U/L (0-40) 02/18/25 04:48 ALT 26 U/L (0-41) 02/18/25 04:48 Alkaline Phosphatase 80 U/L (40-130) 02/18/25 04:48 Troponin T Baseline 31 ng/L (0-15) H 02/14/25 00:00 Troponin T 120 Minute 37.79 ng/L (0-15) H 02/14/25 01:49 Delta Troponin T 6.79 ABS# (0-10) 02/14/25 01:49 Troponin T Hi Sens 6Hr 91.92 ng/L (0-15) H 02/14/25 05:59 Troponin T Hi Sens 6Hr Delta 60.92 ng/L (0-12) H* 02/14/25 05:59 NT-Pro-B Natriuret Pep 1374 pg/mL (0-450) H 02/17/25 04:02 Total Protein 6.7 g/dL (6.6-8.7) 02/18/25 04:48 Albumin 3.5 g/dL (3.5-5.2) 02/18/25 04:48 Globulin 3.2 g/dL (1.3-4.6) 02/18/25 04:48 Triglycerides 61 mg/dL (0-150) 02/15/25 03:22 Cholesterol 88 mg/dL (0-200) 02/15/25 03:22 LDL Cholesterol, Calc 27 mg/dL (50-129) L 02/15/25 03:22 Total VLDL Cholesterol 12 mg/dL (0-30) 02/15/25 03:22 HDL Cholesterol 49 mg/dL (60-100) L 02/15/25 03:22 Cholesterol/HDL Ratio 1.80 mg/dL (1.0-5.00) 02/15/25 03:22 Vitamin B12 829 pg/mL (232-1245) 02/14/25 04:25 Folate 8.2 ng/mL (4.5-32.2) 02/15/25 03:22 Procalcitonin 0.25 ng/mL (0-0.5) 02/14/25 04:25 TSH 0.13 uIU/mL (0.27-4.20) L 02/14/25 04: Free T4 3.43 ng/dL (0.82-1.77) H 02/14/25 04:25 Free T3 2.6 PG/ML (2.0-4.4) 02/14/25 04:25 Urine Color Yellow (Yellow) 02/14/25 01:00 Urine Appearance Clear (CLEAR) 02/14/25 01:00 Urine pH 7.0 (5-7) 02/14/25 01:00 Ur Specific [place] 1.013 (1.005-1.030) 02/14/25 01:00 Urine Protein Trace (Negative) A 02/14/25 01:00 Urine Glucose (UA) Trace (Normal) H 02/14/25 01:00 Urine Ketones 1+ (Negative) H 02/14/25 01:00 Urine Blood Negative (Negative) 02/14/25 01:00 Urine Nitrate Positive (Negative) A 02/14/25 01:00 Urine Bilirubin Negative (Negative) 02/14/25 01:00 Urine Urobilinogen 1.0 mg/dL (Negative) 02/14/25 01:00 Ur Leukocyte Esterase 1+ (Negative) A 02/14/25 01:00 Urine RBC 0-4 /hpf (0-2) H 02/14/25 01:00 Urine WBC 15-25 /hpf (0-5) H 02/14/25 01:00 Ur Squamous Epith Cells None /hpf (0-5) 02/14/25 01:00 Amorphous Sediment Not Reportable 02/14/25 01:00 Urine Bacteria 3+ /hpf (NONE) H 02/14/25 01:00 Nasal MRSA (PCR) Not detected (Negative) 02/14/25 08:36 Vancomycin Trough 13.4 ug/mL (10-15) 02/16/25 03:56 Adenovirus (PCR) Not detected (NOT DETECT) 02/14/25 01:45 C. pneumoniae DNA (PCR) Not detected (NOT DETECT) 02/14/25 01:45 Coronavirus 229E (PCR) Not detected (NOT DETECT) 02/14/25 01:45 Human Metapneumovir PCR Not detected (NOT DETECT) 02/14/25 01:45 Influenza A (H1) PCR Not detected (NOT DETECT) 02/14/25 01:45 Influ A (H1/09) PCR Not detected (NOT DETECT) 02/14/25 01:45 Influenza A (H3) PCR Not detected (NOT DETECT) 02/14/25 01:45 Influenza Type A (PCR) Not detected (NOT DETECT) 02/14/25 01:45 Influenza Type B (PCR) Not detected (NOT DETECT) 02/14/25 01:45 M. pneumoniae (PCR) Not detected (NOT DETECT) 02/14/25 01:45 Parainfluenza 1 (PCR) Not detected (NOT DETECT) 02/14/25 01:45 Parainfluenza 2 (PCR) Not detected (NOT DETECT) 02/14/25 01:45 Parainfluenza 3 (PCR) Not detected (NOT DETECT) 02/14/25 01:45 Parainfluenza 4 (PCR) Not detected (NOT DETECT) 02/14/25 01:45 RSV Type A (PCR) Not detected (NOT DETECT) 02/14/25 01:45 RSV Type B (PCR) Not detected (NOT DETECT) 02/14/25 01:45 Entero/Rhino (PCR) Not detected (NOT DETECT) 02/14/25 01:45 SARS-CoV-2 (PCR) Not detected (NOT DETECT) 02/14/25 01:45 Vitals Last Vital Signs Temp 97.9 F 02/19/25 11:17 Pulse 89 02/19/25 11:17 Resp 16 02/19/25 11:17 BP 147/65 02/19/25 11:17 Pulse Ox 91 02/19/25 11:17 O2 Del Method Room Air 02/19/25 11:17 O2 Flow Rate 2 02/19/25 08:14 FiO2 30 02/19/25 00:01 Discharge Plan Discharge Patient Disposition: Home Condition: Stable Prescriptions: New levothyroxine [Levoxyl] 100 mcg Tablet 100 mcg PO DAILY 30 Days Qty: 30 0RF tamsulosin 0.4 mg Capsule 0.8 mg PO DAILY 30 Days Qty: 30 0RF metoprolol tartrate 50 mg Tablet 50 mg PO BID@0900,2100 30 Days Qty: 60 0RF budesonide 0.5 mg/2 mL Suspension For Nebulization 0.5 mg inhalation BID.RESPIRATORY 30 Days Qty: 120 0RF ipratropium bromide 0.02 % Solution 0.5 mg inhalation Q6H.RESP PRN (Reason: Dyspnea) 30 Days Qty: 300 0RF finasteride 5 mg Tablet 5 mg PO BEDTIME 30 Days Qty: 30 0RF prednisone 10 mg tablets,dose pack See Rx Instructions .ROUTE .COMPLEX Qty: 21 0RF Rx Instructions: 40 mg x 2 days, 30 mg x 2 days, 20 mg x 2 days, 10 x2 days Continued cholecalciferol (vitamin D3) 25 mcg (1,000 unit) capsule 25 mcg PO DAILY@0730 aspirin 81 mg tablet,delayed release (DR/EC) 81 mg PO DAILY@12 (DME) Sole supports Qty: 1 0RF Rx Instructions: As directed insulin glargine 100 unit/mL (3 mL) insulin pen 40 unit SUBCUT DAILY (DME) Custom orthotics See Rx Instructions .Route .MEDSUPPLY Qty: 1 0RF Rx Inst[facility]: [facility] Diabetic shoes with custom inserts See Rx Instructions .Route .MEDSUPPLY Qty: 1 0RF Rx Instructions: As directed BY [facility] (DME) Diabetic Shoes with 3 sets of insoles See Rx Instructions .Route .MEDSUPPLY Qty: 1 0RF Rx Instructions: As directed by [facility] hydrocortisone 2.5 % cream 1 applic topical BID Qty: 30 2RF Rx Instructions: Apply to the top of the left foot Twice a day. clopidogrel 75 mg tablet 75 mg PO DAILY Qty: 90 3RF (DME) diabetic shoes with custom inserts See Rx Instructions .Route .MEDSUPPLY Qty: 1 0RF Rx Instructions: As directed to [facility] diabetic [facility] metformin 500 mg tablet extended release 24 hr 500 mg PO BID Qty: 180 1RF (DME) Dexcom G7 Sensor Device See Rx Instructions .Route Qty: 3 3RF Rx Instructions: change sensor every 10 days Glucagon Emergency Kit (human) 1 mg recon soln 1 mg SUBCUT Q20M PRN (Reason: hypoglycemia) Qty: 1 3RF Rx Instructions: until target blood sugar attained polyethylene glycol 3350 [Miralax] 17 gram powder in packet 17 g PO BID PRN (Reason: Constipation) (DME) Diabetic Shoes with 3 inserts See Rx Instructions .Route .MEDSUPPLY Qty: 1 0RF Rx Instructions: As directed to the [facility] atorvastatin 80 mg tablet 40 mg PO QPM Qty: 45 3RF (DME) 2 Pairs of Custom Molded Orthotics A5514 See Rx Instructions .Route .MEDSUPPLY Qty: 1 0RF Rx Instructions: As directed [facility] (DME) 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 G7 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 See Rx Instructions .Route Qty: 1 0RF Rx Instructions: As directed losartan 50 mg tablet See Rx Instructions .ROUTE .COMPLEX Qty: 135 3RF Dose Instruction: TAKE ONE AND ONE-HALF TABLETS BY MOUTH ONCE A DAY Rx Instructions: TAKE ONE AND ONE-HALF TABLETS BY MOUTH ONCE A DAY gabapentin 100 mg capsule See Rx Instructions .ROUTE .COMPLEX Qty: 270 3RF Dose Instruction: TAKE ONE CAPSULE BY MOUTH THREE TIMES A DAY Rx Instructions: TAKE ONE CAPSULE BY MOUTH THREE TIMES A DAY isosorbide mononitrate 60 mg Tablet Extended Release 24 Hr 90 mg PO QAM cetirizine 10 mg Tablet 10 mg PO DAILY multivitamin Tablet 1 tab PO QAM insulin aspart U-100 [Novolog FlexPen U-100 Insulin] 100 unit/mL (3 mL) insulin pen 20 unit SUBCUT TID Rx Instructions: INJECT 20 UNITS UNDER THE SKIN THREE TIMES A DAY BEFORE MEALS ADMINISTER 10 MINUTES BEFORE FOOD DIRECTED. REFRIGERATE UN-OPENED PENS. DISCARD CARTRIDGE 28 DAYS AFTER OPENING. cilostazol 100 mg Tablet 100 mg PO BID Changed guaifenesin 600 mg tablet extended release 12hr 600 mg PO BID Qty: 90 3RF Discontinued levothyroxine 175 mcg Tablet 175 mcg PO QAM albuterol sulfate 90 mcg/actuation Hfa Aerosol Inhaler 1 inh INHALATION QID Discharge Order = DC NOW: Discharge Order (Routine); Ordered 02/19/25 Ordered By: Zonia Feliciano Other Ambulatory Orders: DME: Nebulizer with Neb Kit (Order) Location: None Selected Ordered By: Pierre Leal DME: Oxygen (Order) Location: None Selected Ordered By: Zonia Feliciano DME: Walker (Order) Location: None Selected Ordered By: Pierre Leal Referrals: Shavonne Biswas MD [Primary Care Provider, Family Practice] Referral Note: We have notified your physician's clinic of the need for a follow-up appointment to be scheduled. If you have not heard from them within the next 2 business days, please call them directly. Max Feliciano MD [Hospitalist, Oncology] - 02/20/25 2:30 pm Referral Note: Recurrence lung cancer Discharge Diet: Usual diet Discharge Activity: Resume usual activity Patient Instructions: Metoprolol (By mouth), Prednisone (By mouth), Using Oxygen at Home (GEN), CHF Stoplight, COPD Stoplight, Opioid Safety, Pneumonia Stoplight, Patient Portal & Renan Instructions Discharge Attestations Time Spent in Discharge Care*: greater than 30 min Quality Metrics Clinical Quality Measures [ No reported AMI, CVA or VTE this stay] Coding Level of Care Code 14940 Diagnoses Acute hypoxic respiratory failure J96.01 COPD exacerbation J44.1 Lung mass R91.8 Postobstructive pneumonia J18.9 Multifocal atrial tachycardia I47.19 KAUR (dyspnea on exertion) R06.09 Urinary retention due to benign prostatic hyperplasia N40.1; R33.8 Hypothyroid E03.9 Mixed hyperlipidemia E78.2 Hyperlipidemia type: mixed hyperlipidemia Type 2 diabetes mellitus with diabetic polyneuropathy, with long-term current use of insulin E11.42; Z79.4 Diabetes mellitus assisted insulin use: with 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
--- NOTE | 2025-02-19 14:35 | PC.NURSE ---
Patient refused medications from [facility] pharmacy. This nurse contacted [facility] to see if there was anyway patient could get them from there without paying up front. [facility] stated the same as [facility]. Patient would have to pay up front and then [facility]. Patient refused to fill medications here. Patient agreed to take the paper prescriptions and he would take it from there.
== END 2025-02-19 15:25 | disposition home or self-care (01) | DRG 871 ==
LOC: ER 01:15 → ER IP 01:38 → ICU 12:35 → MEDSURG 02-17 18:49
PROVIDERS: Student in an Organized Health Care Education/Training Program; Admitting Provider Student in an Organized Health Care Education/Training Program; Emergency Provider Student in an Organized Health Care Education/Training Program; PCP Family Medicine; Visit Provider Student in an Organized Health Care Education/Training Program
DX: A41.9 Sepsis, unspecified organism (principal); I50.31 Acute diastolic (congestive) heart failure; R65.21 Severe sepsis with septic shock; J18.9 Pneumonia, unspecified organism; J96.01 Acute respiratory failure with hypoxia; R04.2 Hemoptysis; J44.0 Chronic obstructive pulmonary disease with (acute) lower respiratory infection; I47.19 Other supraventricular tachycardia; N39.0 Urinary tract infection, site not specified; E03.9 Hypothyroidism, unspecified; E11.42 Type 2 diabetes mellitus with diabetic polyneuropathy; Z87.891 Personal history of nicotine dependence; Z83.438 Family history of other disorder of lipoprotein metabolism and other lipidemia; Z83.3 Family history of diabetes mellitus; Z82.49 Family history of ischemic heart disease and other diseases of the circulatory system; I25.10 Atherosclerotic heart disease of native coronary artery without angina pectoris; Z85.51 Personal history of malignant neoplasm of bladder; Z80.9 Family history of malignant neoplasm, unspecified; Z79.4 Long term (current) use of insulin; Z79.84 Long term (current) use of oral hypoglycemic drugs; Z79.890 Hormone replacement therapy; Z79.82 Long term (current) use of aspirin; Z95.5 Presence of coronary angioplasty implant and graft; Z85.118 Personal history of other malignant neoplasm of bronchus and lung; E78.2 Mixed hyperlipidemia; J43.2 Centrilobular emphysema; R33.9 Retention of urine, unspecified; E11.51 Type 2 diabetes mellitus with diabetic peripheral angiopathy without gangrene; N40.1 Benign prostatic hyperplasia with lower urinary tract symptoms; R33.8 Other retention of urine; R91.8 Other nonspecific abnormal finding of lung field; Z79.02 Long term (current) use of antithrombotics/antiplatelets
CPT/HCPCS: 36415; 36416; 36600; 51798; 71045; 71250; 71275; 74176; 80053; 80061; 80202; 81001; 82607; 82746; 82803; 82962; 83036; 83540; 83550; 83605; 83735; 83880; 84145; 84439; 84443; 84481; 84484; 85025; 87040; 87070; 87077; 87086; 87186; 87205; 87486; 87581; 87633; 93005; 93306; 94640; 94660; 94760; 96365; 96366; 96367; 96372; 96375; 99291; J0131; J0282; J0696; J1644; J1650; J1815; J1938; J2543; J2919; J3372; J3373; J3475; J3490; J7030; J7614; J7626; J7644; J9999

== ENCOUNTER 2025-03-06 14:00 | Oncology outpatient (recurring) (ONCR) | payer OTHER, SELFPAY ==
--- NOTE | 2025-02-28 12:30 | PETR_ITS ---
PROCEDURE INFORMATION: Exam: PET/CT Skull Base to Mid-thigh Exam date and time: 02/28/2025 1:50 PM Age: 79 years old Clinical indication: Condition or disease; Primary cancer: Malignant neoplasm upper lobe, prior surgery; Surgery date: 6+ months; Surgery type: Heart stent placement LABS AND CLINICAL REPORTS: Glucose: 190 mg/dl Treatment strategy for malignancy (PET staging): Restaging (PS) TECHNIQUE: Imaging protocol: Following at least four-hour fasting and following the injection of radiopharmaceutical, low dose CT images were obtained. Then, PET images were obtained. Attenuation corrected images were constructed using the CT scan. Fused images of PET and CT were reviewed. The standardized uptake values (SUV) reported below are maximum values within a region of interest, expressed in gm/ml. Exam includes orbital meatal line to mid-thigh. SUV normalization method: BodyWeight Radiopharmaceutical: 10.27 mCi F-18 FDG (Fluorodeoxyglucose), IV. Time of imaging post radiopharmaceutical administration: 46 minutes Injection site: left ac COMPARISON: CT angio chest PE protcl [id number] 02/17/2025 4:04 PM, CT chest, abdomen and pelvis 02/15/2025, PET-CT 07/25/2023 FINDINGS: Brain: Visualized brain has normal physiologic uptake. Pharynx: No abnormal uptake. Larynx: No abnormal uptake. Lungs, pleura and trachea: A radiotracer avid left lower lobe pulmonary nodule is present, SUV max 9.4 (PET image 75) measuring 1.4 x 1.1 cm (previously 1.7 x 1.1 cm). Ovoid morphologically similar masslike pleural-based consolidation density mass in the superior medial right upper lung adjacent to the pleural surface measuring 5.3 x 2.7 cm on series 202, image 65 demonstrates an SUV max 5.0 (previously 2.8) on PET image 67. Interval resolution of bilateral pleural effusions. Heart: Normal physiologic uptake. Mediastinal space: No abnormal uptake. Esophagus: A mildly diffusely thick-walled appearance of the esophagus is similar compared with 02/17/2025, without elevated uptake. Liver: No abnormal uptake. Calcified granulomas in the liver are present. Gallbladder and biliary ducts: No abnormal uptake. Pancreas: No abnormal uptake. Spleen: No abnormal uptake. Calcified granulomas in the spleen are present. Adrenal glands: No abnormal uptake. Kidneys and ureters: Normal physiologic uptake. Stomach and bowel: No abnormal uptake. There is physiologic appearing uptake in the region of the ileocecal valve. Surgical clips in the region of the cecum are noted. Vasculature: No abnormal uptake. Multifocal regions of atherosclerotic calcification are present. Stents in the bilateral common iliac arteries are present. Lymph nodes: Radiotracer avid mediastinal and bilateral hilar lymph nodes are identified, SUV max 30.5 in the left hilar region on PET image 85. The size of these lymph nodes is difficult to compare to the prior CT from 02/17/2025 without intravenous contrast on the current examination, however, these lymph nodes appear similar in size. Additional example: Subcarinal space, SUV max 23.4 on PET image 91 in a lymph node measuring 1.6 cm in short axis. A right internal mammary radiotracer avid lymph node is present, SUV max 20.6 on PET image 92 without a well-defined lymph node on the CT images. Radiotracer avid lymph nodes in the right periesophageal region are noted in the inferior thorax, SUV max 11.5 on image 119 of the PET series, measuring 1.2 cm in diameter. There are radiotracer avid retroperitoneal periaortic lymph nodes, SUV max 14.3 on PET image 145 measuring 1.9 cm in short axis. A radiotracer avid wale hepatis lymph node is present, SUV max 15.2 on PET image 133 measuring 1 cm. Radiotracer avid lymph nodes in the submental space on the right and in the bilateral supraclavicular regions are noted. Example: Lymph node posterior to the left clavicle measuring 8 mm in short axis on CT series 202, image 52 demonstrates an SUV max 22.2. Uptake within all of these lymph nodes is new since the prior PET-CT. Skeleton: Numerous scattered radiotracer avid lytic osseous lesions are identified in the axial and appendicular skeleton. Examples: Posterior right 1st rib, SUV max 10.1 on image 46; T1 right-sided, lamina, pedicle and transverse process, SUV max 25.0 on image 48; right L1 transverse process, vertebral body and pedicle measuring 3.4 x 2.2 cm in the axial plane, SUV max 34.5 on image 141; lateral left sacrum, SUV max 36.4 on image 202. Soft tissues: No abnormal uptake in the visualized head, neck, chest, abdomen, pelvis, and extremities. METRICS: Mediastinal blood pool: SUV max 3.1, SUV mean 2.6 Liver uptake: SUV max 3.7, SUV mean 2.9 PET/PET skull to thigh SUBS [id number] IMPRESSION: 1. Consolidation in the medial right upper lung identified with interval increase in uptake since the prior PET-CT, which may be inflammatory or infectious in etiology. Recurrence of malignancy is not excluded. 2. A radiotracer avid left lower lobe pulmonary nodule is noted, concerning for malignancy. It is decreased in size compared with 02/17/2025. 3. Radiotracer avid lymphadenopathy in the neck, chest, and abdomen is new since the prior PET-CT, likely metastatic. 4. Numerous radiotracer avid osseous metastatic lesions are new since the prior PET-CT. 5. A mildly diffusely thick-walled appearance of the esophagus is noted, without elevated uptake favoring a benign etiology. 6. Additional nonurgent findings as detailed above.
--- NOTE | 2025-02-28 16:00 | MR_ITS ---
WS: [id number] MRI HEAD WITH CONTRAST TECHNIQUE: Sagittal T1, T2 axial, T2 axial FLAIR, axial susceptibility weighted imaging, axial diffusion weighted images, and coronal T2 images were obtained. Pre and post-T1 axial and post T1 coronal images. ADC and FSPGR images. CLINICAL INFORMATION: non small cell lung cancer COMPARISON: MRI 2020 FINDINGS: No evidence of enhancing intracranial metastatic disease. Normal dural venous sinuses. No evidence of restricted diffusion to suggest acute ischemia. Ventricular system and basilar cisterns are patent. Progressed moderate small vessel changes with moderate to advanced parenchymal volume loss. Small vessel changes in the ambrosio. Normal posterior fossa. Normal vascular flow voids at the skull base. No extra-axial fluid collections. Paranasal sinuses and mastoid air cells are well aerated. Normal posterior nasopharynx. No hemosiderin on the susceptibly weighted images. Normal optic chiasm and pituitary infundibulum. MR/MR head wo/w con [id number] IMPRESSION: 1. No evidence of enhancing intracranial metastatic disease. 2. No evidence of restricted diffusion to suggest acute ischemia. 3. Moderate small vessel changes with moderate to advanced parenchymal volume loss. Small vessel changes in the ambrosio. 4. No hemosiderin on susceptibility-weighted images.
[2025-02-28] MEDS: gadobenate dimeglumine 20 mL vial IV (16:26)
[2025-03-06 14:00] LABS: Hematocrit 32.0 % (37-53); Hemoglobin 10.40 g/dL (11.27-16.99); Mean Corpuscular HGB Conc 32.5 g/dL (30-55); Mean Corpuscular Hemoglobin 28.7 pg (27-33); Mean Corpuscular Volume 88.2 fl (82-101); Nucleated Red Blood Cells % 0 %; Platelet Count 259 10^3/cmm (157-399); Red Blood Count 3.63 10^6/uL (3.85-5.65); White Blood Count 11.49 10^3/uL (3.29-11.43)
[2025-03-06 14:44] LABS: Alanine Aminotransferase 19 U/L (0-41); Albumin Level 3.3 g/dL (3.5-5.2); Alkaline Phosphatase 77 U/L (40-130); Anion Gap 16.4 (5-19); Aspartate Amino Transferase 21 U/L (0-40); Blood Urea Nitrogen 9 mg/dL (8-23); Calcium 8.9 mg/dL (8.5-10.5); Carbon Dioxide 26 mmol/L (22-29); Chloride 91 mmol/L (98-107); Creatinine Clr Calc Pharmacy 82.6683; Ferritin 407 ng/mL (30-400); Globulin 3.4 g/dL (1.3-4.6); Glucose 227 mg/dL (65-115); Iron 19 ug/dL (59-158); Osmolality Calculated 274 mOsm/kg (285-295); Potassium 4.4 mmol/L (3.5-5.1); Sodium 129 mmol/L (136-145); Total Iron Binding Capacity 200 mcg/dl; Total Protein 6.7 g/dL (6.6-8.7); Unsaturated Iron Binding 181 ug/dL (112-347); Vitamin B12 984 pg/mL (232-1245)
== END 2025-03-14 23:59 | disposition home or self-care (01) ==
PROVIDERS: PCP Family Medicine; Visit Provider Internal Medicine
DX: Z53.9 Procedure and treatment not carried out, unspecified reason; R91.8 Other nonspecific abnormal finding of lung field; M89.8X8 Other specified disorders of bone, other site; J44.9 Chronic obstructive pulmonary disease, unspecified; R59.0 Localized enlarged lymph nodes; Z87.891 Personal history of nicotine dependence; Z92.3 Personal history of irradiation; Z92.21 Personal history of antineoplastic chemotherapy
CPT/HCPCS: 36415; 70553; 78815; 80053; 82607; 82728; 82746; 83010; 83540; 83550; 83615; 85025; 85045; 99213; A9552

== ENCOUNTER → 2025-03-17 11:29 | Outpatient (BNVA) | payer OTHER, SELFPAY | PROVIDERS: PCP Family Medicine; Visit Provider Podiatrist Foot & Ankle Surgery | DX: E11.42 Type 2 diabetes mellitus with diabetic polyneuropathy (principal); L60.3 Nail dystrophy; L84 Corns and callosities; E11.8 Type 2 diabetes mellitus with unspecified complications; I73.9 Peripheral vascular disease, unspecified; Z79.4 Long term (current) use of insulin; Z79.84 Long term (current) use of oral hypoglycemic drugs | CPT/HCPCS: 11721 ==

== ENCOUNTER → 2025-03-26 15:07 | Outpatient (BNVA) | payer OTHER, SELFPAY | PROVIDERS: PCP Family Medicine; Visit Provider Internal Medicine | DX: I25.10 Atherosclerotic heart disease of native coronary artery without angina pectoris (principal) | CPT/HCPCS: 99213 ==

== ENCOUNTER 2025-04-07 08:14 | Inpatient (IN) | payer OTHER, SELFPAY ==
--- OUTSIDE RECORDS SUMMARY | 2024-05-30 04:00 | XMS_ITS ---
Author Organization [facility] Address [address] [place] [address] Care Team Providers Care Child Welfare Specialist Name Role Phone Shavonne Anderson MD Primary Care Provider Unav ailable Robert Phillips Unavailable [phone] [place], [place] Unavailable Unavailable REASON FOR VISIT [id number] Encounters Encounter Location Date Provider Diagnosis [facility] [address] [place] [address] [place] [address] 05/30/2024 Robert Phillips Plan Of Treatment Next Appt Details Provider Name:Nate junior, 04/21/2025 08:30:00 AM, [place], [address], Provider Name:Robert Phillips, 03/24/2026 01:50:00 PM, [address] [place] [address] [address], [place], [address], Progress Notes * NOAH FUNEZ VDOB:1945 (79 yo M)Acc No.[id number]:05/30/2024 Patient: Farnaz NOAH VARGAS V Provider: Edgar Phillips MD :1945 A ge:78 Y S ex:Male Date:05/30/2024 Address:[address], [address] [place], [place] [id number] Pcp:Shavonne Anderson MD Check In:08:39 AM BULKER Subjective: * Chief Complaints: * [phone] [id number] * Electronic signature of Deanna Phillips MD on 04/07/2025 at 08:28 AM BULKER Sign off status: Pending * Provider: Edgar Phillips MD Date: 0 05/30/2024 Generated for Shawn payne/Chelsea/Naiitting on: 06/07/2024 08:28 AM BULKER
--- OUTSIDE RECORDS SUMMARY | 2024-05-30 05:00 | XMS_ITS ---
Author Organization [facility] Address [address] [place] [address], [place] [address] Care Team Providers Care Sleeve Machine Tender Name Role Phone [facility] Primary Care Provider Unav ailable Robert Phillips Unavailable [phone] [place], [place] Unavailable Unavailable REASON FOR VISIT [id number], Shortness of breath Encounters Encounter Location Date Provider Diagnosis [facility] [address] [place] [address] [place] [address] 05/30/2024 Robert Phillips Shortness of breath R06.02 ; Malignant neoplasm of upper lobe, right bronchus or lung C34.11 ; Former smoker Z87.891 and DINESH (obstructive sleep apnea) G47.33 Assessments Encounter Date Diagnosis (ICD Code) Assessment Notes Treatment Notes Treatment Clinical Notes Section Notes 05/30/2024 Shortness of breath (ICD-10 - R06.02) Patient was being treated for COPD in [place], [place]. Continue Albuterol HFA. Hold Stiolto. I will give him a sample of Trelegy and Breztri. -Obtain PFT and 6MW 05/30/2024 Malignant neoplasm of upper lobe, right bronchus or lung (ICD-10 - C34.11) Patient currenlty following Oncology in [place], [place]. Obtain repeat chest CT March 18, 2025. 05/30/2024 Former smoker (ICD-10 - Z87.891) Patient smoked 2 attyb-ekc-teq for 49 years. He has been abstinent since he was 62 years old. 05/30/2024 DINESH (obstructive sleep apnea) (ICD-10 - G47.33) Patient states he has sleep apnea and uses oxygen at night. 05/30/2024 Other I, Nadiya Lujan, am scribing for, and in the presence of Dr. Robert Phillips. I, Dr. Robert Phillips, personally performed the services described in this documentation, as scribed by Nadiya Lujan in my presence, and it is both accurate and complete. Plan Of Treatment Treatment Notes Assessment Notes Shortness of breath Patient was being treated for COPD in [place]. Continue Albuterol HFA. Hold Stiolto. I will give him a sample of Trelegy and Breztri. -Obtain PFT and 6MW Malignant neoplasm of upper lobe, right bronchus or lung Patient currenlty following Oncology in [place], [place]. Obtain repeat chest CT March 18, 2025. Former smoker Patient smoked 2 pac ks-per-day for 49 years. He has been abstinent since he was 62 years old. DINESH (obstructive sleep apnea) Patient st ates he has sleep apnea and uses oxygen at night. Next Appt Details Provider Name:Nate junior, 04/21/2025 08:30:00 AM, [address], [place], [address], Provider Name:Robert Phillips, 03/24/2026 01:50:00 PM, [address] [place] [address] [address], [place], [address], History and Physical Notes * HPI (History of Present Illness) Category Sub-Category Detail Notes Category Not es Provider Note The patient is a 78-year-old male referred for evaluation and management of shortness of breath. He has seen a data steward in [place] but that data steward has left. He has not had any PFT. He was told he had COPD and is currently on Stiolto. He really has not found the need to use his rescue inhaler but still gets breathless with exertion. He was a previous smoker smoking 2 packs a day for 49 years before quitting at the age of 62. He has a history of lung cancer treated with radiation alone 3 years ago. I reviewed his chest CT images obtained in March 18, 2024 showing a right upper lobe area of atelectasis versus scar tissue. -Patient last seen yesterday here for walk and PFT Examination Category Sub-Category Detail Notes Category Not es General Examination GENERAL APPEARANCE: awake, n ot in respiratory distress EYES: extraocular muscles intact EARS: normal hearing HEART: no murmurs, rubs, ga llops, no edema LUNGS: no wheezes, rales, r honchi, diminished breath sounds throughout NEUROLOGIC: alert, oriented SKIN: warm and moist PSYCH: normal mood with rogerio ropriate affect Progress Notes * NOAH FUNEZ VDOB:1945 (79 yo M)Acc No.[id number]:05/30/2024 Progress Notes Patient: NOAH FAUSTIN V Provider: Edgar Phillips MD :1945 A ge:78 Y S ex:Male Date:05/30/2024 Address:[address] [place], [place] [phone] Pcp:Shavonne Anderson MD Check In:08:43 AM ELECTRODE CLEANER Subjective: * Chief Complaints: * 6 [id number] of breath * HPI: P rovider Note: The patient is a 78-year-old male referred for evaluation and management of shortness of breath. He has seen a data steward in [place] but that data steward has left. He has not had any PFT. He was told he had COPD and is currently on Stiolto. He really has not found the need to use his rescue inhaler but still gets breathless with exertion. He was a previous smoker smoking 2 packs a day for 49 years before quitting at the age of 62. He has a history of lung cancer treated with radiation alone 3 years ago. I reviewed his chest CT images obtained in March 18, 2024 showing a right upper lobe area of atelectasis versus scar tissue. -Patient last seen yesterday here for walk and PFT. * ROS: Bethany colvin of [employer] has been reviewed and scanned in by me. Objective: * Examination: G eneral Examination: GENERAL APPEARANCE: a wake, not in respiratory distress.? EYES: e xtraocular muscles intact. EARS: n ormal hearing. SKIN: w arm and moist. HEART: n o murmurs, rubs, gallops, no edema. LUNGS: n o wheezes, rales, rhonchi, diminished breath sounds throughout. NEUROLOGIC: a lert, oriented. PSYCH: n ormal mood with appropriate affect. ? Assessment: * Assessment: 1. S hortness of breath - R06.02 (Primary) 2 . M alignant neoplasm of upper lobe, right bronchus or lung - C34.11 3 . F ormer smoker - Z87.891 ?4. O SA (obstructive sleep apnea) - G47.33 Plan: * Treatment: 2. M alignant neoplasm of upper lobe, right bronchus or lung Notes: Patient currenlty following Oncology in [place]. Obtain repeat chest CT March 18, 2025. 3. F ormer smoker Notes:Patient smoked 2 gvkmh-lam-klj for 49 years. He has been abstinent since he was 62 years old. 4. O SA (obstructive sleep apnea) Notes: Patient states he has sleep apnea and uses oxygen at night. 5. O thers Clinical Notes:INadiya, am scribing for, and in the presence of Dr. Robert Phillips. I, Dr. Robert Phillips, personally performed the services described in this documentation, as scribed by Nadiya Lujan in my presence, and it is both accurate and complete. * Immunizations: Immunization record has been reviewed and updated. Care Plan Details* * Electronic signature of Deanna Phillips MD on 04/07/2025 at 08:28 AM ELECTRODE CLEANER Sign off status: Pending * Provider: Edgar Phillips MD Date: 0 05/30/2024 Generated for Shawn payne/Chelsea/eTransmitting on: 06/07/2024 08:28 AM ELECTRODE CLEANER
[2025-04-07] VITALS (15 sets, daily range): BP systolic 143–180; BP diastolic 83–134; PULSE 98–125; RESP 18–25; TEMP 36.2–36.9; O2SAT 90–98; BMI 28.2; BMI 28.1
--- OUTSIDE RECORDS SUMMARY | 2025-04-07 08:29 | XMS_ITS | Encounter Summary ---
Author Organization [facility] Address [address] [place] [address] Care Team Providers Care Mapping Editor Name Role Phone Unavailable Primary Care Provider Unavailabl e Encounter Details Date Type Department Care Team (Late st Contact Info) Description 04/01/2025 External Device Data [facility] ABSTRACTION Provider, Abstract NO ADDRESS ON FILE Social History Tobacco Use Types Packs/Day Years Used Date Smoking Tobacco: Former Cigarettes 0 Q uit: 09/12/2006 Alcohol Use Standard Drinks/Week Comments Never 0 (1 standard drink = 0.6 oz pur e alcohol) Feeling Safe Answer Date Recorded Are you in a relationship wi th someone who hurts you emotionally and/or physically? 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
--- OUTSIDE RECORDS SUMMARY | 2025-04-07 08:29 | XMS_ITS | Encounter Summary ---
Author Organization [facility] Address [address] [place] [address] Care Team Providers Care Bindery Manager Name Role Phone Unavailable Primary Care Provider Unavailabl e Encounter Details Date Type Department Care Team (Late Contact Info) Description 02/05/20[facility] [place] [address] 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 [address] [place] [address] Mireya Malave NP [address] [address] documented as of this encounter Visit Diagnoses Not on filedocumented in this encounter
--- OUTSIDE RECORDS SUMMARY | 2025-04-07 08:29 | XMS_ITS | Encounter Summary ---
Author Organization [facility] Address [address] [place] [address] Care Team Providers Care Brick Burner Name Role Phone Unavailable Primary Care Provider Unavailabl e Reason for Referral * PET Scan (Urgent) - Closed Specialty Diagnoses / Procedures Referred By Contac t Referred To Contact Radiology Diagnoses Malignant neoplasm of upper lobe, right bronchus or lung (CMS/HCC) Procedures PET TUMOR IMG W CT SKL BSE MID THG Nuno Campbell MD [address] [place] [phone] Phone: tel: fax: [facility] [address] [place] [phone] Phone: tel: fax: Referral ID Status Reason Start Date Expiration Date V isits Requested Visits Authorized [id number] Closed [facility] Schedule 03/02/2020 04/02/2021 1 1 Encounter Details Date Type Department Care Team (Late st Contact Info) Description 03/02/2020 Ancillary Orders [facility] Pre-Registration [place] CALL TO MAKE APPOINTMENT ONLY [address] [place] [address] Nuno Campbell MD [address] [place] [phone] Malignant neoplasm of upper lobe, right [...] from Skull Base to Mid Thigh: Radiopharmaceutical: [id number] Dose: 13.2 mCi right forearm IV Time of Injection: 1335 hrs BMI: Not available Clinical Indication: Initial treatment strategy to evaluate malignant neoplasm of the right lung upper lobe for staging examination FDG ([id number]) PET imaging was performed at 1422 hrs [...] from Skull Base to Mid Thigh: Radiopharmaceutical: [id number] Dose: 13.2 mCi right forearm IV Time of Injection: 1335 hrs BMI: Not available Clinical Indication: Initial treatment strategy to evaluate malignant neoplasm of the right lung upper lobe for staging examination FDG ([id number]) PET imaging was performed at 1422 hrs [...]
--- OUTSIDE RECORDS SUMMARY | 2025-04-07 08:29 | XMS_ITS | Patient Health Record ---
Author Organization [facility] Address [address] [place] [address] Care Team Providers Care Structural Worker Name Role Phone [facility] MD Primary Care Provider Unav ailable Robert Phillips Unavailable [phone] [place], [place] Unavailable Unavailable Dionisio Cormier Unavailable [phone] Allergies No Known Allergies Results Component Value Reference Range Notes Schedule Confirmation Reviewed date:03/10/2025 11:30:32 AM Interpretation: Performing Lab: Notes/Report: CT Chest w/o Contrast Reason For Referral Reason malignant neoplasm o f upper lobe, bronchus of lung: [place] - Scheduled Diagnosis 1 Malignant neoplasm o f upper lobe, right bronchus or lung (C34.11) Referring Provider First Name Jose Antonio Jean Baptitseu Referring Provider Last Name [place] Referring Provider Speciality [facility] Referred Organization [facility] Referred Provider Robert Phillips Referred Address [address],[place], [place],[address], Referred Provider Specialty Pulmonary Di seases General Notes Svitlana Casper 05/06 04:28:32 PM >04/25-JAYCE @ Jose Antonio Marti to get imaging info., Tremayne Svitlana 05/13/2024 03:37:02 PM >Email from Lucero @ [place] [facility]- he is a cancer patient at [facility] oncology. Joanna in the cancer center at [facility] states they can cloud share to you guys but Jessica has to do it. She will be returning on Monday05/20/2024. He's had CT chests in 04/07, Pet3/24, more CTs of chest done 12/[address] on 08/04 that will all be sent over as next week., Svitlana Casper 05/20/2024 04:31:35 PM >Images received via [email or web address]., Svitlana Casper 05/20/2024 04:53:40 PM >LVM for [facility] medical records for the reports of the images, Svitlana Casper 05/21/2024 09:04:48 AM >Received Reports for imaging., Svitlana Casper 05/21/2024 02:08:37 PM >Scheduled 05/29/2024 @ 10:30 AM Referral Priority Routine Reason Patient needs to est ablish with local [employer] Internship Diagnosis 1 Malignant neoplasm o f upper lobe, right bronchus or lung (C34.11) Diagnosis 2 DINESH (obstructive sle ep apnea) (G47.33) Diagnosis 3 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) Diagnosis 4 Chronic cough (R05.3 ) Referral Organization [facility] Referring Provider First Name Robert Referring Provider Last Name Jacqueline Referring Provider Speciality Pulmonary Diseases Referred Provider [facility] Referred Provider Specialty Pulmonology General Notes [...] Priority Routine Referral Appointment Date 01/23/2025 Reason COPD: [facility] ([facility] Diagnosis 1 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) Diagnosis 2 DINESH (obstructive sle ep apnea) (G47.33) Diagnosis 3 Malignant neoplasm o f upper lobe, right bronchus or lung (C34.11) Referring Provider First Name Jose Antonio pham Referring Provider Last Name [place] Referring Provider Speciality [facility] Referred Organization [facility] Referred Provider Robert Phillips Referred Address [address] [place] [address] [address],[place],[address],[place] Referred Provider Specialty Pulmonary Di nelson Referral Priority Routine Reason Constipation Diagnosis 1 Fecal impaction (K56 .41) Referring Provider First Name Jose Antonio pham Referring Provider Last Name [place] Referring Provider Speciality [facility] Referred Organization [facility] Referred Provider [facility] Referred Address [address] [place],[address] Referred Provider Specialty Gastroentero logy Referral Priority Routine Medications Medication SIG (Take, Route, Frequency, Duration) Notes Start Date End Date Status Clopidogrel Bisulfate 75 MG Tablet 1 tablet Orally Once a day Not-Taking cilostazol 50 MG Oral Tablet 100mg 04/08/2019 Active Atorvastatin Calcium 80 MG Tablet 1 tablet Orally Once a day Active Empagliflozin 25 MG Tablet 1 tablet Orally Once a day Not-Taking Aspirin Adult Low Dose 81 MG Tablet Delayed Release 1 tablet Orally Once a day Active Albuterol Sulfate HFA 108 (90 Base) MCG/ACT Aerosol Solution 2 puffs as needed Inhalation every 4-6 hrs as needed; Duration: 90 days Not-Taking Cholecalciferol 25 MCG (1000 UT) Capsule 1 capsule Orally Once a day Active Isosorbide Mononitrate ER 30 MG Tablet Extended Release 24 Hour 1 tablet in the morning Orally Once a day Not-Taking Cetirizine HCl 10 MG Tablet 1 tablet Orally Once a day Active Insulin, Aspart, Human 100 UNT/ML Injectable Solution Insulin, Aspart, Human 100 UNT/ML Injectable Solution 04/08/2019 Not-Taking Pantoprazole Sodium 40 MG Tablet Delayed Release 1 tablet 1/2 to 1 hour before morning meal Orally Once a day 03/13/2025 Not-Taking Tamsulosin HCl 0.4 MG Capsule 1 capsule Orally Once a day Active Metoprolol Tartrate 50 MG Tablet 1 tablet with food Orally Twice a day Active Acarbose 100 MG Oral Tablet Acarbose 100 MG Oral Tablet 04/08/2019 Not-Taking Reglan 10 MG Tablet 1 tablet Orally 30 minutes prior to starting colon prep; Duration: 1 dose 03/13/2025 Not-Taking predniSONE 10 MG Tablet 1 tablet with food or milk Orally Once a day Active Polyethylene Glycol - Powder as directed Active Levothyroxine Sodium 75 MCG Tablet 1 tablet in the morning on an empty stomach Orally Once a day Active Isosorbide Mononitrate ER 60 MG Tablet Extended Release 24 Hour 1 tablet in the morning Orally Once a day Active Urea 40 % Cream 1 application as needed Externally Once a day Not-Taking metFORMIN HCl 500 MG Tablet 1 tablet with a meal Orally Once a day Active Losartan Potassium 50 MG Tablet 1 1/2 tablet Orally Once a day Active guaiFENesin ER 600 MG Tablet Extended Release 12 Hour 1 tablet as needed Orally three times a week Active Multivitamin - Tablet 1 tablet Orally Once a day Not-Taking Glucagon Emergency 1 MG Kit as directed Injection Not-Taking Mometasone Furo-Formoterol Fum 100-5 MCG/ACT Aerosol as directed Inhalation Not-Taking Insulin Glargine 100 UNT/ML Injectable Solution Insulin Glargine 100 UNT/ML Injectable Solution 04/08/2019 Active Triamcinolone Acetonide 0.025 % Cream 1 application Externally Once a day Not-Taking Hydrocortisone 2.5 % Cream 1 application Externally Once a day Active Stiolto Respimat 2.5-2.5 MCG/ACT Aerosol Solution 2 puffs Inhalation Once a day; Duration: 90 days Not-Taking Lisinopril 40 MG Oral Tablet Lisinopril 40 MG Oral Tablet 04/08/2019 Not-Taking Gabapentin 100 MG Capsule 1 capsule at bedtime Orally three times a day Active Metoclopramide 10 MG Oral Tablet Metoclopramide 10 MG Oral Tablet 04/08/2019 Not-Taking Metformin hydrochloride 850 MG Oral Tablet Metformin hydrochloride 850 MG Oral Tablet 04/08/2019 Not-Taking Immunizations Vaccine Route Administration Date Status Comme nts Influenza (whole), CPT 20316 Inactive Unknown 03/01/2019 Administered Social History Tobacco Use: Social History Observation Description Date Details (start date - stop date) Former Smoker NA - NA Social History Tobacco Use: Social Info Question Answer Notes Tobacco Control (Standard) Tobacco use: Former smoker How long has it been since you last smoked? Greater than 10 years Additional Details Category Social Info Options Details Drugs/Alcohol: Do you smoke marijuana? De nies Do you drink alcohol? No Problems Problem Type SNOMED Code ICD Code Onset Dates Problem Status W/U Status Risk Notes Problem Malignant neoplasm of upper lobe, bronchus or lung (215989748) Malignant neoplasm of upper lobe, right bronchus or lung (C34.11) Active confirmed Problem Screening for malignant neoplasm of colon (873757609) Encounter for screening for malignant neoplasm of colon (Z12.11) Active confirmed Problem Gastroesophageal reflux disease (disorder) (486342051) Chronic GERD (K21.9) Active confirmed Problem Radiology result abnormal (878464781) Abnormal chest CT (R93.89) Active confirmed Problem Obstructive sleep apnea syndrome (81523967) DINESH (obstructive sleep apnea) (G47.33) Active confirmed Problem Personal history of primary malignant neoplasm of bronchus (814865061) History of lung cancer (Z85.118) Active confirmed Problem Chronic obstructive pulmonary disease (86100098) 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) Active confirmed Problem Chronic respiratory failure (82989860) Chronic hypoxic respiratory failure (J96.11) Active confirmed Vital Signs Heart Rate 89 /min 03/24/2025 Temperature 97.5 degrees Fahrenheit 03/24/2025 Respiratory Rate 18 /min 03/24/2025 Height-cm 175.26 cm 03/24/2025 Oximetry 94 % 03/24/2025 Blood pressure diastolic 72 mm Hg 03/24/2025 Weight-kg 86.0 kg 03/24/2025 Height 69 in 03/24/2025 Blood pressure systolic 118 mm Hg 03/24/2025 Weight 189.6 lbs 03/24/2025 BMI 28 kg/m2 03/24/2025 Procedures Procedure Date Ordered Date Performed Result Body Sit e SIX MINUTE WALK 05/29/2024 N/A PFT with FRC: (NO TGV) 05/29/2024 N/A PFT with FRC: (NO TGV) 05/30/2024 05/30/2024 N/A SIX MINUTE WALK 07/08/2024 07/08/2024 N/A Encounters Encounter Location Date Provider Diagnosis [facility] [address] [place] [address] [place] [address] 03/24/2025 Robert Phillips Shortness of breath R06.02 ; Stage 2 moderate COPD by GOLD classification J44.9 ; Malignant neoplasm of upper lobe, right bronchus or lung C34.11 ; Former smoker Z87.891 ; DINESH (obstructive sleep apnea) G47.33 ; Chronic cough R05.3 and Chronic hypoxic respiratory failure J96.11 [facility] [address] [place] [address] [place] [address] 10/17/2024 Robert Phillips Shortness of breath R06.02 ; Stage 2 moderate COPD by GOLD classification J44.9 ; Malignant neoplasm of upper lobe, right bronchus or lung C34.11 ; Former smoker Z87.891 ; DINESH (obstructive sleep apnea) G47.33 and Chronic cough R05.3 [facility] [address] [place] [address] 07/08/2024 Robert Jacqueline Shortness of breath R06.02 ; Stage 2 moderate COPD by GOLD classification J44.9 ; Malignant neoplasm of upper lobe, right bronchus or lung C34.11 ; Former smoker Z87.891 and DINESH (obstructive sleep apnea) G47.33 [facility] [address] [place] [address] 03/13/2025 Dionisio Cormier Chronic GERD K21.9 ; Altered bowel habits R19.4 ; History of adenomatous polyp of colon Z86.0101 ; Cough productive of purulent sputum R05.8 ; Abnormal chest CT R93.89 ; History of pneumonia Z87.01 ; History of lung cancer Z85.118 ; DINESH (obstructive sleep apnea) G47.33 ; History of COPD Z87.09 ; Encounter for other preprocedural examination Z01.818 and Encounter for screening for malignant neoplasm of colon Z12.11 [facility] [address] [place] [address] 05/29/2024 Robert Phillips Shortness of breath R06.02 ; Malignant neoplasm of upper lobe, right bronchus or lung C34.11 ; Former smoker Z87.891 and DINESH (obstructive sleep apnea) G47.33 [facility] [address] [place] [address] 05/30/2024 Robert Davee Shortness of breath R06.02 [facility] [address] [place] [address] 07/08/2024 Robert Phillips Shortness of breath R06.02 [facility] [address] [place] [address] 03/20/2025 Dionisio Cormier [facility] [address] [place] [address] 02/11/2025 Robert Phillips [facility] [address] [place] [address] [place] [address] 01/15/2025 Robert Phillips [facility] [address] [place] [address] [place] [address] 01/01/2025 Robert Phillips Stage 2 moderate CREDIT OFFICE MANAGER D by GOLD classification J44.9 ; Malignant neoplasm of upper lobe, right bronchus or lung C34.11 ; DINESH (obstructive sleep apnea) G47.33 and Chronic cough R05.3 [facility] [address] [place] [address] [place] [address] 08/05/2024 Robert Phillips [facility] [address] [place] [address] [place] [address] 05/30/2024 Robert Phillips Assessments Encounter Date Diagnosis (ICD Code) Assessment Notes Treatment Notes Treatment Clinical Notes Section Notes 01/01/2025 Stage 2 moderate COPD by GOLD classification (ICD-10 - J44.9) 07/08/2024 Shortness of breath (ICD-10 - R06.02) 07/08/2024 Stage 2 moderate COPD by GOLD classification (ICD-10 - J44.9) Stage II COPD Continue Albuterol HFA. Continue Stiolto No benefit from Trelegy or Breztri. 07/08/2024 Shortness of breath (ICD-10 - R06.02) 05/30/2024 Shortness of breath (ICD-10 - R06.02) 10/17/2024 Shortness of breath (ICD-10 - R06.02) 03/13/2025 Chronic GERD (ICD-10 - K21.9) 03/13/2025 Altered bowel habits (ICD-10 - R19.4) 03/24/2025 Shortness of breath (ICD-10 - R06.02) Patient with bilateral pleural effusion. Patient has known cardiac disease. 01/01/2025 Malignant neoplasm of upper lobe, right bronchus or lung (ICD-10 - C34.11) 05/29/2024 Malignant neoplasm of upper lobe, right bronchus or lung (ICD-10 - C34.11) Patient currenlty following Oncology in [place], [place]. Obtain repeat chest CT March 18, 2025. 05/29/2024 Shortness of breath (ICD-10 - R06.02) Patient was being treated for COPD in [place], [place]. Continue Albuterol HFA. Hold Stiolto. I will give him a sample of Trelegy and Breztri. -Obtain PFT and 6MW 05/29/2024 Former smoker (ICD-10 - Z87.891) Patient smoked 2 ediyh-htb-zhh for 49 years. He has been abstinent since he was 62 years old. 01/01/2025 DINESH (obstructive sleep apnea) (ICD-10 - G47.33) 03/24/2025 Stage 2 moderate COPD by GOLD classification (ICD-10 - J44.9) Stage II COPD Continue Albuterol HFA. Continue Stiolto No benefit from Trelegy or Breztri. I told him he may take liquid Mucinex. 03/13/2025 History of adenomatous polyp of colon (ICD-10 - Z86.0101) 03/24/2025 Malignant neoplasm of upper lobe, right bronchus or lung (ICD-10 - C34.11) [facility] in [place], [place]. He is scheduled for CT guided lung biopsy tomorrow. 10/17/2024 Stage 2 moderate COPD by GOLD classification (ICD-10 - J44.9) Stage II COPD Continue Albuterol HFA. Continue Stiolto No benefit from Trelegy or Breztri. I told him he may take liquid Mucinex. 10/17/2024 Malignant neoplasm of upper lobe, right bronchus or lung (ICD-10 - C34.11) [facility] [place] [place]. Obtain repeat chest CT March 2025. 07/08/2024 Malignant neoplasm of upper lobe, right bronchus or lung (ICD-10 - C34.11) [facility] in [place], [place]. Obtain repeat chest CT March 18, 2025. 03/13/2025 Cough productive of purulent sputum (ICD-10 - R05.8) 01/01/2025 Chronic cough (ICD-10 - R05.3) 07/08/2024 Former smoker (ICD-10 - Z87.891) Patient smoked 2 xfxlw-fxc-vsp for 49 years. He has been abstinent since he was 62 years old. 10/17/2024 Former smoker (ICD-10 - Z87.891) Patient smoked 2 iesjk-ymf-ekj for 49 years. He has been abstinent since he was 62 years old. 03/24/2025 Former smoker (ICD-10 - Z87.891) Patient smoked 2 pdjjv-vyx-mxv for 49 years. He has been abstinent since he was 62 years old. 05/29/2024 DINESH (obstructive sleep apnea) (ICD-10 - G47.33) Patient states he has sleep apnea and uses oxygen at night. 03/24/2025 DINESH (obstructive sleep apnea) (ICD-10 - G47.33) Patient states he has sleep apnea and uses oxygen at night. 03/13/[address] (ICD-10 - R93.89) 10/17/2024 DINESH (obstructive sleep apnea) (ICD-10 - G47.33) Patient states he has sleep apnea and uses oxygen at night. 07/08/2024 DINESH (obstructive sleep apnea) (ICD-10 - G47.33) Patient states he has sleep apnea and uses oxygen at night. 10/17/2024 Chronic cough (ICD-10 - R05.3) He may take Mucinex BID 03/13/2025 History of pneumonia (ICD-10 - Z87.01) 03/24/2025 Chronic cough (ICD-10 - R05.3) He may take Mucinex BID 03/24/2025 Chronic hypoxic respiratory failure (ICD-10 - J96.11) Continue nocturnal oyxgen to maintian a saturation above 89% given history of heart failure. 03/13/2025 History of lung cancer (ICD-10 - Z85.118) 03/13/2025 DINESH (obstructive sleep apnea) (ICD-10 - G47.33) 03/13/2025 History of COPD (ICD-10 - Z87.09) 03/13/2025 Encounter for other preprocedural examination (ICD-10 - Z01.818) 03/13/2025 Encounter for screening for malignant neoplasm of colon (ICD-10 - Z12.11) Start pantoprazole 40 mg daily and follow GERD precautions: Avoid alcohol, NSAIDs, spicy foods, limit excessive coffee, large meals before bed, head of bed upon blocks. *Will need PCP or pulmonology clearance given productive cough with colored sputum and abnormal chest CT earlier this month. He is instructed to schedule appoint with his PCP within the week. Also requesting clearance from cardiology to hold anticoagulants for 5 days ahead of procedure. Colon cancer risks, prevention strategies, and screening guidelines discussed with the patient. Prior endoscopy records reviewed and noted. Last colonoscopy was _2018 .Risk factors:_Adenoma__ ____ Recommend surveillance colonoscopy. Colonoscopy procedure, risks, benefits, potential complications, and potential interventions discussed. Bowel preparation was discussed and written instructions provided. Questions answered to apparent satisfaction. Verbalizes understanding. Desires to proceed with the proposed plan. Schedule colonoscopy with __Dr. Chambers bowel prep sent to [facility] and instructions were reviewed with the patient.Advised to avoid any OTC supplements, NSAIDs, and aspirin 3 days prior to endoscopy.Follow-u p to be arranged based on endoscopy findings and interventions 05/29/2024 Other Nadiya Blood am scribing for, and in the presence of Dr. Robert Phillips. Dr. Robert Blood, personally performed the services described in this documentation , as scribed by Nadiya Lujan in my presence, and it is both accurate and complete. 07/08/2024 Other Nadiya Blood am scribing for, and in the presence of Dr. Robert Phillips. Dr. Robert Blood, personally performed the services described in this documentation , as scribed by Nadiya Lujan in my presence, and it is both accurate and complete. 10/17/2024 Other Nadiya Blood am scribing for, and in the presence of Dr. Robert Phillips. Dr. Robert Blood, personally performed the services described in this documentation , as scribed by Nadiya Lujan in my presence, and it is both accurate and complete. 03/24/2025 Other Nadiya Blood am scribing for, and in the presence of Dr. Robert Phillips. Dr. Robert Blood, personally performed the services described in this documentation , as scribed by Nadiya Lujan in my presence, and it is both accurate and complete. Plan Of Treatment Pending Test Test Name Order Date SIX MINUTE WALK 05/29/2024 PFT with FRC: (NO TGV) 05/29/2024 Colonoscopy, High Risk Screening-G0105 1 EGD, Upper GI Diagnostic-49922 Future Test Test Name Order Date CT Chest w/o Contrast diagnostic-40749 1 Next Appt Details Provider Name:Nate Davisyola junior, 04/21/2025 08:30:00 AM, [address] [place] [address] , [place], [address], Provider Name:Robert Phillips, 03/24/2026 01:50:00 PM, [address] [place] [address] [address], [place], [address], Insurance Providers Payer Name Payer Address Payer Phone Subscriber Number Group Number Insured Name Patient Relationship to Insured Coverage Start Date Coverage End Date [employer] [address] [place] [address] [phone] [id number] NOAH FUNEZ Self - patient is the insured Medical (General) History Medical History History ICD Code Chronic Obstructive Pulmonary Disease Coronary arteriosclerosis Diabetes mellitus Hyperlipidemia Problem:Hypertensive disorder, systemic arterial Sleep apnea measles chicken pox pneumonia rhumatic fever heart disease bladder cancer lung cancer bronchitits copd emphysema Surgical History Surgery Date(Month/Year) Vascular 2020 Bladder 2006 Vascular right leg 2021 Heart 2023,2010 Vascular calf leg 05.01.24 Hospitalization History Reason Date(Month/Year) See Sx HX
--- OUTSIDE RECORDS SUMMARY | 2025-04-07 08:29 | XMS_ITS | Clinical Summary ---
Author Organization [facility] Address [address] [place] [address] Phone Care Team Providers Care Operator Receptionist Name Role Phone Unavailable Primary Care Provider [...] syndrome of right lower extremity Atherosclerosis of elim ira ar teries of extremity with rest pain [...] (#1) 2024 Medical Devices Implanted Type Area Briar Wood Sorter Device Identifier Shelf Expiration Date Model / Serial / Lot Angio-Seal Vip Closure Dev [id number] - [id number] Implanted:Qty: 1 on 10/01/2020 at [facility] Closure Device Right: Groin [employer] 07/12/2021 [id number] / / [id number] Stent Viabahn Hep [id number] - [id number] Implanted:Qty: 1 on 10/01/2020 at [facility] Stent Right: Leg [employer] 07/20/2023 [id number] / [id number] / Stent Synergy Mr 4.0x32mm Drug Elut [id number] - [id number] Implanted:Qty: 1 on 10/01/2020 by Joseph Montalvo MD at [facility] Stent Right: Leg [employer] 01/28/2022 [id number] / / [id number] Stent Vasc Alva [id number] - [id number] Implanted:Qty: 1 on 10/01/2020 at [facility] Stent Right: Leg [employer] 01/30/2022 [id number] / / [id number] Insurance MEDICARE PART A AND B RX [employer] RX Member Subscriber Plan / Payer (Ef fective for All Dates) Name:RandycarissaMarbin Relation to Subscriber:Self Name:ENMA FUNEZJANAE CORDERO Payer ID:Not on file Type:RX Commercial Address: [place] [facility] [employer] [facility] Advance Directives For more information, please contact: [phone] * Full Code (Latest Code Status on File) Date Activated Date Inactivated Comments 10/01/2020 11:52 AM 10/03/2020 7:18 PM
--- OUTSIDE RECORDS SUMMARY | 2025-04-07 08:29 | XMS_ITS | Clinical Summary ---
Author Organization [facility] Address [address] [place] [address] Phone Care Team Providers Care Branch Office Manager Name Role Phone Unavailable Primary Care [...] mg by mouth 2 times daily. Active metoclopramide HCl (REGLAN) 5 mg tablet Take 1-2 Tablets (5-10 mg) by mouth 4 times daily as needed for Nausea/Emesis. 30 Tablet Active tamsulosin (Flomax) 0.4 mg capsule Take 1 Capsule (0.4 mg) by mouth daily. 60 Capsule 11 5 Active Active Problems Problem Noted Date Diagnosed Date PAD (peripheral artery disease) 12/15/2020 Resolved Problems Problem Noted Date Diagnosed Date Resolved Date Arteriovenous fistula 10/01/20202020 Compartment syndrome of right lower extremity 10/02/1912/15/2020 Atherosclerosis of [place] ar teries of extremity with rest pain 10/01/2020 12/15/2020 Encounters Date Type Department Care Team Description 04/01/2025 External Device Data ST[facility] ABSTRACTION Provider, Abstract 03/05/2025 External Device Data [facility] ABSTRACTION Provider, Abstract 03/04/2025 External Device Data [facility] ABSTRACTION Provider, Abstract 02/10/2025 Results Follow-Up [address] [place] [address] Mireya Malave NP POC URINALYSIS DIPSTICK AUTOMATED, MISCELLANEOUS LAB TEST 02/05/2025 1:00 PM CDT Office Visit [address] [place] [address] Mireya Malave NP Urinary retention (Primary Dx) 02/05/2025 Orders Only [address] [place] [address] Mishel Blake Urinary retention 02/05/[address] [place] [address] Mireya Malave NP 02/04/2025 External Device Data STL ABSTRACTION Provider, Abstract 02/04/2025 External Device Data ST[facility] ABSTRACTION Provider, Abstract 02/04/2025 External Device Data [facility] ABSTRACTION Provider, Abstract 01/08/2025 11:30 AM CDT Office Visit [address] [place] [phone] Mireya Malave NP Urinary retention (Primary Dx) 01/08/2025 External Device Data STL ABSTRACTION Provider, Abstract 01/07/2025 External Device Data ST[facility] ABSTRACTION Provider, Abstract 01/07/2025 External Device Data STL ABSTRACTION Provider, Abstract from Last 3 Months Social History Tobacco [...] on file 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 Gender Identity Not on file Sexual Orientation [...] Description 08/05/2025 2:30 PM CDT Office Visit [address] [place] [phone] Mireya Malave NP [address] [place] [phone] (work) Health Maintenance Due Date Last Done Comments DIABETES ANNUAL FOOT EXAM 1962 DIABETES ANNUAL RETINAL EXAM 1962 DIABETES MICROALBUMIN ANNUAL SCREEN 1962 LDL CHOLESTEROL ANNUAL 1962 RSV VACCINE (60+ or ) (1 - [...] 01/13, 05/16/2014 Medical Devices Implanted Type Area Hose Mender Device Identifier Shelf Expiration Date Model / Serial / Lot Angio-Seal Vip Closure Dev [id number] - [id number] Implanted:Qty: 1 on 10/01/2020 Closure Device Right: Groin [employer] 07/12/2021 [id number] / / [id number] Stent Synergy Mr 4.0x32mm Drug Elut [id number] - [id number] Implanted:Qty: 1 on 10/01/2020 by Joseph Montalvo MD Stent Right: Leg [employer] 01/28/2022 [id number] / / [id number] Stent Vasc Alva [id number] - [id number] Implanted:Qty: 1 on 10/01/2020 Stent Right: Leg [employer] 01/30/2022 [id number] / / [id number] Stent Viabahn Hep [id number] [id number] - [id number] Implanted:Qty: 1 on 10/01/2020 Stent Right: Leg [employer] 07/20/2023 [id number] / [id number] / Procedures Procedure Name Priority Date/Time Associated Diagnosis Comments URINALYSIS MICROSCOPY ONLY Routine 02/05/2025 1:51 PM CDT Urinary retention MISCELLANEOUS LAB TEST Routine 1:24 PM CDT Urinary retention POC URINALYSIS DIPSTICK AUTOMATED Routine 02/05/2025 1:17 PM CDT from Last 3 Months Results * (ABNORMAL) URINALYSIS MICROSCOPY ONLY (02/05/2025 1:51 PM CDT) WBC UA > OR = 60(A) < OR = 5 /HPF [facility] RBC UA NONE SEEN < OR = 2 /HPF [facility] EPITHELIAL CELLS, URINE NONE SEEN < OR = 5 /HPF [facility] BACTERIA UA MANY(A) NONE SEEN /HPF [facility] HYALINE CAST NONE SEEN NONE SEEN /LPF [facility] Comment: Test Performed at: [email or web address] [address] [place] [address] Ramakrishna Arteaga Urine URINE SPECIMEN OBTAINED BY CLEAN CATCH PROCEDURE / Unknown 02/05/2025 1:51 PM CDT 02/05/2025 5:27 PM CDT Mireya Malave INTERNATIONAL TRADE TEACHER URINE ORDERABLES Final Resul t Performing Organization Address [facility] de Phone Number [facility] [phone] [email or web address] [address] [place] [address] * MISCELLANEOUS LAB TEST (02/05/2025 1:24 PM CDT) Other, specify 02/05/2025 1: 24 PM CDT Mireya Malave INTERNATIONAL TRADE TEACHER CHEMISTRY ORDERABLES Final R esult Performing Organization Address [facility] Co de Phone Number [facility] [phone] * (ABNORMAL) POC URINALYSIS DIPSTICK AUTOMATED (02/05/2025 1:17 PM CDT) COLOR UA Yellow Pale to Dark Yellow 02/05/2025 1:17 PM CDT [facility] CLARITY UA Cloudy(A) Clear 02/05/2025 1:17 PM CDT [facility] GLUCOSE UA Negative Negative 02/05/2025 1:17 PM CDT [facility] BILIRUBIN UA Negative Negative 02/05/2025 1:17 PM CDT [facility] KETONES UA Negative Negative 02/05/2025 1:17 PM CDT [facility] BLOOD UA Negative Negative 02/05/2025 1:17 PM CDT [facility] PH UA 7.0 5.0 - 8.0 02/05/2025 1:17 PM CDT [facility] PROTEIN UA Negative Negative 02/05/2025 1:17 PM CDT [facility] UROBILINOGEN UA 2.0(A) <2.0 mg/dL 1:17 PM CDT [facility] NITRITE UA Positive(A) Negative 02/05/2025 1:17 PM CDT [facility] LEUKOCYTE ESTERASE UA 3+(A) Negative 02/05/2025 1:17 PM CDT [facility] SPECIFIC GRAVITY UA POC 1.015 1.000 - 1.030 02/05/2025 1:17 PM CDT [facility] Urine 02/05/2025 1:17 PM CDT 02/05/2025 1:19 PM CDT Narrative [facility] - 02/05/2025 1:17 PM CDT Recommend Urine Microcopic ([id number])and Urine Culture ([id number]) if indicated. us Mireya Malave NP POINT OF CARE TESTING Final Result [facility] COVARRUBIAS# [id number] [address] [place] [id number], [place] from Last 3 Months Insurance MEDICARE PART A AND B * Guarantor: NACNYCarissaMARBIN Account Type Relation to Patient Date of Phone Billing Address Personal/Family [address] [place] [address] RX [employer] RX Member Subscriber Plan / Payer (Ef fective for All Dates) Name:Marbin Funezedwige Relation to Subscriber:Self Name:Marbin Funez Payer ID:Not on file Type:RX Commercial Address: [place], [place] [employer] [facility] [employer]
--- NOTE | 2025-04-07 08:30 | W.ED.GENADLT ---
HPI - General Adult General: Chief complaint: General Medical Stated complaint: lower abdominal pain Time Seen by Provider: 04/07/25 08:26 History of Present Illness: 79-year-old man with a history of tobacco dependence, Type 2 diabetes, diabetic neuropathy, chronic hypoxemic respiratory failure on 2 L nasal cannula at home but he does not wear it when he goes out, COPD, right upper lobe non-small cell lung cancer, hypothyroidism, peripheral artery disease, and coronary artery disease who presents emergency room with multiple complaints. Primarily he is complaining of low back pain radiating into his buttock and groin. He also says when he coughs he feels a numbness in his right elbow. Related Data Home Medications ?Medication ?Instructions ?Recorded ?Confirmed aspirin 81 mg tablet,delayed 81 mg PO DAILY@12 09/18/19 04/07/25 release cholecalciferol (vitamin D3) 25 25 mcg PO DAILY@0730 09/18/19 04/07/25 mcg (1,000 unit) capsule cetirizine 10 mg tablet 10 mg PO DAILY 10/07/21 04/07/25 isosorbide mononitrate 60 mg 90 mg PO QAM 10/07/21 04/07/25 tablet,extended release 24 hr multivitamin 1 tab PO QAM 10/07/21 04/07/25 insulin glargine 100 unit/mL (3 40 unit SUBCUT DAILY 01/14/22 04/07/25 mL) subcutaneous pen polyethylene glycol 3350 17 gram 34 g PO DAILY PRN Constipation 10/13/22 04/07/25 oral powder packet (Miralax) cilostazol 100 mg tablet 100 mg PO BID 02/14/25 04/07/25 albuterol sulfate 90 mcg/actuation 2 puff inhalation .Q4-6H PRN 04/07/25 04/07/25 aerosol inhaler Shortness Of Breath finasteride 5 mg tablet 5 mg PO BEDTIME 04/07/25 04/07/25 gabapentin 100 mg capsule 100 mg PO TID 04/07/25 04/07/25 levothyroxine 175 mcg tablet 175 mcg PO QAM 04/07/25 04/07/25 losartan 50 mg tablet 75 mg PO DAILY 04/07/25 04/07/25 pantoprazole 40 mg tablet,delayed 40 mg PO QAM 04/07/25 04/07/25 release tamsulosin 0.4 mg capsule 0.8 mg PO BEDTIME 04/07/25 04/07/25 tiotropium 2.5 mcg-olodaterol 2.5 2 puff inhalation DAILY 04/07/25 04/07/25 mcg/actuation mist for inhalation (Stiolto Respimat) Previous Rx's ?Medication ?Instructions ?Recorded Sole supports #1 ea 09/18/19 Custom orthotics #1 ea 11/20/19 Diabetic shoes with custom inserts #1 ea 12/08/20 Diabetic Shoes with 3 sets of #1 ea 11/08/21 insoles glucagon 1 mg solution for 1 mg SUBCUT Q20M PRN hypoglycemia 11/23/21 injection (Glucagon Emergency Kit) #1 ea atorvastatin 80 mg tablet 40 mg (1/2 x 80 mg) PO QPM #45 tabs 04/06/22 clopidogrel 75 mg tablet 75 mg PO DAILY #90 tabs 03/07/24 2 Pairs of Custom Molded Orthotics #1 ea 03/15/24 A5514 blood-glucose,tow motor operator,cont #1 ea 06/17/24 (Dexcom G7 Tool And Machine Maintainer) diabetic shoes with custom inserts #1 ea 09/09/24 blood-glucose sensor (Dexcom G7 #3 ea 10/15/24 Sensor device) Diabetic Shoes with 3 inserts #1 ea 12/09/24 guaifenesin 600 mg tablet, 600 mg PO BID #90 tabs 02/19/25 extended release 12 hr insulin aspart U-100 100 unit/mL See Rx Instructions .Route 02/20/25 (3 mL) subcutaneous pen (Novolog .COMPLEX #15 mL FlexPen U-100 Insulin aspart) metformin 500 mg tablet,extended 500 mg PO BID #180 tabs 02/27/25 release 24 hr ferrous sulfate 325 mg (65 mg 325 mg PO BID #60 tabs 03/06/25 iron) tablet nitroglycerin 0.4 mg sublingual 0.4 mg sublingual Q5M PRN chest 04/01/25 tablet pain #25 tabs cefdinir 300 mg capsule 300 mg PO BID 10 days #20 caps 04/07/25 prednisone 20 mg tablet 40 mg (2 x 20 mg) PO DAILY 5 days 04/07/25 #10 tabs tramadol 50 mg tablet 50 mg PO Q8H PRN pain #10 tabs 04/07/25 Allergies Allergy/AdvReac Type Severity Reaction Status Date / Time No Known Allergies Allergy Verified 03/26/25 15:24 Review of Systems Narrative: Constitutional symptoms: Negative except as documented in HPI. Skin symptoms: Negative except as documented in HPI. Eye symptoms: Negative except as documented in HPI. ENMT symptoms: Negative except as documented in HPI. Respiratory symptoms: Negative except as documented in HPI. Cardiovascular symptoms: Negative except as documented in HPI. Gastrointestinal symptoms: Negative except as documented in HPI. Genitourinary symptoms: Negative except as documented in HPI. Musculoskeletal symptoms: Negative except as documented in HPI. Neurologic symptoms: Negative except as documented in HPI. Psychiatric symptoms: Negative except as documented in HPI. Endocrine symptoms: Negative except as documented in HPI. PFSH ED PFSH: Medical History (Updated 04/07/25 @ 10:28 by Laila Navarrete MD) Paroxysmal A-fib Diabetic peripheral neuropathy associated with type 2 diabetes mellitus Emphysema of lung Congenital hammertoe of both feet History of chemotherapy History of radiation therapy Non-small cell lung cancer Malignant neoplasm of upper lobe, right bronchus or lung Stage IIIA - T2a, N2, M0 LPRD (laryngopharyngeal reflux disease) Overweight Hypothyroid AV fistula Peripheral arterial occlusive disease Severe claudication Abnormal stress test Atherosclerosis of lummi coronary artery of lummi heart with angina pectoris Lung nodule Type 2 diabetes mellitus with diabetic polyneuropathy, with long-term current use of insulin Bladder cancer PVD (peripheral vascular disease) Surgical History Port-A-Cath in place (04/01/20) H/O esophagogastroduodenoscopy (04/01/20) History of bronchoscopy History of bladder surgery History of surgical removal of pilonidal cyst H/O colonoscopy H/O heart artery stent Family History Other CAD (coronary artery disease) Cancer Diabetes Hyperlipidemia Hypertension Lung disease Denies family history of Clotting disorder Dementia Psychiatric illness Chronic kidney disease (CKD) Suicide Anesthesia complication Bleeding disorder Family history of premature coronary artery disease Stroke Social History Smoking and tobacco/nicotine status: never used tobacco/nicotine Quit status (tobacco/nicotine): has quit using Year quit tobacco: 2007 - 2-3 PPD x 45 Years Alcohol intake: never Substance/Drug Use: never Lives independently: Yes Household members: spouse Marital status: service: Yes Current occupational status: retired Do you think of yourself as: Straight/Heterosexual Current gender identity: Male Physical Exam Narrative: EXAM NARRATIVE: General: Alert, no acute distress. Skin: Warm, dry. Head: Normocephalic, atraumatic. Neck: Supple, trachea midline. Eye: Extraocular movements are intact. Ears, nose, mouth and throat: mucosa moist. Cardiovascular: Tachycardic, Normal peripheral perfusion. Respiratory: Lungs are clear to auscultation, respirations are non-labored, breath sounds are equal, Symmetrical chest wall expansion. Gastrointestinal: Soft, Nontender, Non distended Musculoskeletal: Normal ROM, no deformity. Neurological: Alert and oriented, No focal neurological deficit observed. Psychiatric: Cooperative, appropriate mood & affect. Course Vital Signs: Vital signs: Vital Signs Temperature 98.1 F 04/07/25 08:25 Pulse Rate 110 H 04/07/25 11:00 Respiratory Rate 19 H 04/07/25 11:00 Blood Pressure 156/83 04/07/25 11:00 Pulse Oximetry 92 04/07/25 11:00 Oxygen Delivery Me thod Room Air 04/07/25 11:00 MDM - General Adult Medical Decision Making Medical decision making Patient's reason for coming to the emergency room: Low back pain Social determinants: Retired. Family is present I reviewed the patient's medical record. 79-year-old man with a history of tobacco dependence, Type 2 diabetes, diabetic neuropathy, chronic hypoxemic respiratory failure on 2 L nasal cannula at home but he does not wear it when he goes out, COPD, right upper lobe non-small cell lung cancer, hypothyroidism, peripheral artery disease, and coronary artery disease. Patient had a recent admission for acute hypoxemic respiratory failure, COPD exacerbation, postobstructive pneumonia from the lung mass, multifocal tachycardia but initially was thought to be A-fib. He seems to be having similar issue today. I reviewed the patient's current home meds Patient is on Plavix Alternate historians: None Differential diagnosis: including but not limited to and based on the above HPI, review of systems and physical exam: Patient seems to just have some musculoskeletal/sciatic type pain. However he is tachycardic when he gets here. He says he is been a little more short of breath than usual. Going to go ahead and do a brief workup to determine if there is anything underlying causing him to be tachycardic. And short of breath. Rule out pneumonia. Worsening lung mass. Orders placed to evaluate differential diagnosis based on the above differential, HPI and physical exam EKG: Time 9:11 AM. Rate 116. Atrial fibrillation with rapid ventricular response, nonspecific ST changes, no ectopy, This was reviewed and interpreted by myself the ER physician at 9:15 AM Repeat EKG: atrial fibrillation with rapid ventricular response, No ST-T changes, no ectopy, This was reviewed and interpreted by myself the ER physician at 11:35 AM. Rate has decreased by about 10 bpm. This may be sinus tachycardia at this point difficult to tell Chest x-ray: Spiculated mass still present. No other acute abnormalities. This was reviewed and interpreted by myself the emergency room physician. I also reviewed the radiology report. Lab Review: Laboratory results were reviewed and interpreted by myself the emergency room physician. No leukocytosis. Lactate is mildly elevated at 2.4. No renal failure. Sodium is chronically low at 129. This is stable for this patient patient does have a significant urinary tract infection. Greater than 100 whites 4+ bacteria. Assessment of risk: Level of risk: Moderate risk. Hospitalization considerations: I did consider hospitalization and offered it. Patient's heart rate hovering around 100 but he says he feels good and wants to go home. He is asymptomatic from this. I discussed that this does not improved or if he develops worsening shortness of breath or chest pain to return to the emergency room. Patient's heart rate continued to be elevated and family eventually talk him into staying. Reexamination: Patient still slightly tachycardic. But quite a bit improved. Blood pressures been slightly elevated. He has no chest pain. No shortness of breath. No increased work of breathing. Consultation: I spoke to Dr. Villafuerte who is on-call for the hospitalist service who agrees to admission. Assessment and plan: Urinary tract infection Sciatica A-fib with RVR Possible sepsis: ?I do not believe patient is currently septic but he is tachycardic and I did give some fluids but not full sepsis bolus. As the patient has a history of heart failure -Rocephin given -Sepsis quality measures. -Lactic acid with a reflex was ordered. -Blood cultures were ordered. These were ordered later secondary to change in plan as the patient remained tachycardic. Again I do not believe he is septic but in case he becomes septic blood cultures are being ordered ?I reevaluated the patient's volume status after sepsis fluids were given. ?Normal saline bolus, amiodarone bolus, diltiazem bolus. IV Rocephin. - Patient I requested something less stronger than an opioid so p.o. Ultram for pain -I discussed the patient with the hospitalist on-call who is admitting the patient. - Discussed findings and plan with patient. Answered any questions. - All laboratory values were reviewed and interpreted personally by myself, the ER physician - All imaging was reviewed and interpreted personally by myself, the ER physician. - Evaluation and treatment of this problem were appropriate in the emergency setting Lab Data 04/07/25 09:03 04/07/25 09:03 Radiology Impressions Chest X-Ray 04/07/25 08:32 IMPRESSION: No significant change in spiculated soft tissue prominence right hilar/suprahilar. Laboratory Results WBC 9.45 10^3/uL (3.29-11.43) 04/07/25 09:03 RBC 4.24 10^6/uL (3.85-5.65) 04/07/25 09:03 Hgb 12.40 g/dL (11.27-16.99) 04/07/25 09:03 Hct 37.5 % (37-53) 04/07/25 09:03 MCV 88.4 fl (82-101) 04/07/25 09:03 MCH 29.2 pg (27-33) 04/07/25 09:03 MCHC 33.1 g/dL (30-55) 04/07/25 09:03 RDW 16.5 % (12.1-15.1) H 04/07/25 09:03 Plt Count 360 10^3/cmm (157-399) 04/07/25 09:03 MPV 8.1 fL (7.4-10.4) 04/07/25 09:03 Neut % (Auto) 77.5 % 04/07/25 09:03 Lymph % (Auto) 8.4 % 04/07/25 09:03 Hartley % (Auto) 6.3 % 04/07/25 09:03 Eos % (Auto) 6.8 % 04/07/25 09:03 Baso % (Auto) 0.6 % 04/07/25 09:03 Neut # (Auto) 7.32 10^3/uL (1.8-7.7) 04/07/25 09:03 Lymph # (Auto) 0.8 10^3/uL (0.8-4.8) 04/07/25 09:03 Hartley # (Auto) 0.6 10^3/uL (0.2-0.9) 04/07/25 09:03 Eos # (Auto) 0.6 10^3/uL (0.0-0.8) 04/07/25 09:03 Baso # (Auto) 0.1 10^3/uL (0.0-0.1) 04/07/25 09:03 Nucleated RBC % (auto) 0 % 04/07/25 09:03 Nucleated RBCs # 0.0 /100WBC 04/07/25 09:03 Sodium 129 mmol/L (136-145) L 04/07/25 09:03 Potassium 4.1 mmol/L (3.5-5.1) 04/07/25 09:03 Chloride 92 mmol/L (98-107) L 04/07/25 09:03 Carbon Dioxide 24 mmol/L (22-29) 04/07/25 09:03 Anion Gap 17.1 (5-19) 04/07/25 09:03 BUN 8 mg/dL (8-23) 04/07/25 09:03 Creatinine 0.5 mg/dL (0.7-1.2) L 04/07/25 09:03 GFR Calculation Not Reportable 04/07/25 09:03 Glucose 194 mg/dL (65-115) H 04/07/25 09:03 Calculated Osmolality 272 mOsm/kg (285-295) L 04/07/25 09:03 Lactic Acid 2.4 mmol/L (0.5-2.2) H 04/07/25 09:03 Calcium 9.4 mg/dL (8.5-10.5) 04/07/25 09:03 Total Bilirubin 0.4 mg/dL (0.15-1.2) 04/07/25 09:03 AST 14 U/L (0-40) 04/07/25 09:03 ALT 9 U/L (0-41) 04/07/25 09:03 Alkaline Phosphatase 87 U/L (40-130) 04/07/25 09:03 Troponin T Baseline 22 ng/L (0-15) H 04/07/25 09:03 Total Protein 6.4 g/dL (6.6-8.7) L 04/07/25 09:03 Albumin 4.1 g/dL (3.5-5.2) 04/07/25 09:03 Globulin 2.3 g/dL (1.3-4.6) 04/07/25 09:03 Urine Color Yellow (Yellow) 04/07/25 09:32 Urine Appearance Turbid (CLEAR) A 04/07/25 09:32 Urine pH 6.0 (5-7) 04/07/25 09:32 Ur Specific [place] 1.015 (1.005-1.030) 04/07/25 09:32 Urine Protein 1+ (Negative) A 04/07/25 09:32 Urine Glucose (UA) Negative (Normal) 04/07/25 09:32 Urine Ketones 1+ (Negative) H 04/07/25 09:32 Urine Blood Non-haemolysed trace (Negative) 04/07/25 09:32 Urine Nitrate Negative (Negative) 04/07/25 09:32 Urine Bilirubin Negative (Negative) 04/07/25 09:32 Urine Urobilinogen 1.0 mg/dL (Negative) 04/07/25 09:32 Ur Leukocyte Esterase 3+ (Negative) A 04/07/25 09:32 Urine RBC 3-5 /hpf (0-2) 04/07/25 09:32 Urine WBC >100 /hpf (0-5) H 04/07/25 09:32 Ur Squamous Epith Cells 0-5 /hpf (0-5) 04/07/25 09:32 Amorphous Sediment Not Reportable 04/07/25 09:32 Urine Bacteria 4+ /hpf (NONE) H 04/07/25 09:32 Hyaline Casts 1.65 /lpf 04/07/25 09:32 All radiology interpretation(s) finalized by discharge Discharge Plan Discharge Patient Disposition: Admitted As Inpatient Clinical Impression: Sciatica, Atrial fibrillation with rapid ventricular response, Urinary tract infection Condition: Stable Discharge Diet: Usual diet Discharge Activity: Increase activity as tolerated Coding Level of Care Code ED Rn Nursery for Carmen Rosas
--- NOTE | 2025-04-07 08:32 | ECG_ITS ---
[facility] Date: 2025-04-07 Pat Name: Marbin Funez Department: Room: Gender: Male Speech Pathologist Assistant: : 1945 Requested By: Laila Medeiros Order Number: [id number] Rony MD: Sharif Arias M.D. Measurements Intervals [place] Rate: 116 P: 0 MD: 0 QRS: 57 QRSD: 98 T: 62 QT: 319 QTc: 444 Interpretive Statements Multifocal atrial tachycardia NONSPECIFIC ST & T-WAVE ABNORMALITY ABNORMAL RHYTHM ECG Compared to ECG 02/15/2025 13:38:13 Sinus rhythm no longer present T-wave abnormality still present Electronically Signed On 04-07-2025 10:31:28 FLOORING PROFESSIONAL by Sharif Arias M.D. [email or web address]
--- NOTE | 2025-04-07 08:32 | XRR_ITS ---
PROCEDURE INFORMATION: Exam: XR Chest Exam date and time: 04/07/2025 8:33 AM Age: 79 years old Clinical indication: Shortness of breath; Right elbow pain, lower back pain (more right side), right leg pain x1 month TECHNIQUE: Imaging protocol: Radiologic exam of the chest. Views: 1 view. COMPARISON: CT angio chest PE protcl [id number] 02/17/2025 4:04 PM FINDINGS: Lungs: Irregular spiculated prominence of the right hilar/suprahilar region is similar to prior CT. No new focal or diffuse airspace disease. Pleural spaces: Unremarkable. No pleural effusion. No pneumothorax. Heart/Mediastinum: Unremarkable. No cardiomegaly. Bones/joints: Unremarkable. XR/XR chest 1V portable [id number] IMPRESSION: No significant change in spiculated soft tissue prominence right hilar/suprahilar.
[2025-04-07 09:10] LABS: Hematocrit 37.5 % (37-53); Hemoglobin 12.40 g/dL (11.27-16.99); Mean Corpuscular HGB Conc 33.1 g/dL (30-55); Mean Corpuscular Hemoglobin 29.2 pg (27-33); Mean Corpuscular Volume 88.4 fl (82-101); Nucleated Red Blood Cells % 0 %; Platelet Count 360 10^3/cmm (157-399); Red Blood Count 4.24 10^6/uL (3.85-5.65); White Blood Count 9.45 10^3/uL (3.29-11.43)
--- NOTE | 2025-04-07 09:27 | PC.PHAR ---
[facility] 04/07/25 9:25am
[2025-04-07 09:32] LABS: Troponin(5th) Baseline 22 ng/L (0-15)
[2025-04-07 09:33] LABS: Alanine Aminotransferase 9 U/L (0-41); Albumin Level 4.1 g/dL (3.5-5.2); Alkaline Phosphatase 87 U/L (40-130); Anion Gap 17.1 (5-19); Aspartate Amino Transferase 14 U/L (0-40); Blood Urea Nitrogen 8 mg/dL (8-23); Calcium 9.4 mg/dL (8.5-10.5); Carbon Dioxide 24 mmol/L (22-29); Chloride 92 mmol/L (98-107); Globulin 2.3 g/dL (1.3-4.6); Glucose 194 mg/dL (65-115); Osmolality Calculated 272 mOsm/kg (285-295); Potassium 4.1 mmol/L (3.5-5.1); Sodium 129 mmol/L (136-145); Total Protein 6.4 g/dL (6.6-8.7)
[2025-04-07 09:34] LABS: Lactic Sepsis W/Reflex 2.4 mmol/L (0.5-2.2)
[2025-04-07] MEDS: amiodarone 150 MG/100 ML PREMIX 400 MG IV (09:52)
[2025-04-07 09:56] LABS: Glucose Urine UA Negative (Normal); Nitrate Urine Negative (Negative); Specific Gravity, Urine 1.015 (1.005-1.030)
--- NOTE | 2025-04-07 10:32 | ECG_ITS ---
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 Measurements Intervals [place] Rate: 104 P: 31 SC: 180 QRS: 66 QRSD: 83 T: 89 QT: 331 QTc: 436 Interpretive Statements SINUS TACHYCARDIA LOW QRS VOLTAGE IN PRECORDIAL LEADS [QRS DEFLECTION < 1.0 mV IN CHEST LEADS] NONSPECIFIC ST & T-WAVE ABNORMALITY ABNORMAL RHYTHM ECG Compared to ECG 04/07/2025 09:11:13 Low QRS voltage now present Ectopic atrial tachycardia, multifocal no longer present T-wave abnormality still present Electronically Signed On 04-07-2025 17:50:36 HEALTH PLAN SPECIALIST by Sharif Arias M.D. [email or web address]
[2025-04-07] MEDS: cefTRIAXone 1,000 mg SDV 1000 MG IVP (10:49)
[2025-04-07] MEDS: dilTIAZem 5 mg/mL SDV 5 mL 10 MG IVP (10:52)
[2025-04-07 10:54] LABS: Reflex Lactate Order REFLEX LACTIC ORDERD
[2025-04-07] MEDS: AMIODARONE HCL/D5W 900 MG/500 ML BAG 33.33 MG IV (11:45)
[2025-04-07 12:01] LABS: Troponin 5 2HR 19.26 ng/L (0-15)
[2025-04-07 12:10] LABS: Troponin 5 2HR Delta -2.74 ABS# (0-10)
[2025-04-07 12:12] LABS: Lactic Acid level (Lactate) 1.7 mmol/L (0.5-2.2)
--- NOTE | 2025-04-07 14:32 | ECG_ITS ---
[facility] Date: 2025-04-07 Pat Name: Marbin Funez Department: Room: 111 Gender: Male Publication Designer: : 1945 Requested By: Laila Medeiros Order Number: [id number] Rony MD: Sharif Arias M.D. Measurements Intervals [place] Rate: 105 P: 127 CA: 181 QRS: 63 QRSD: 90 T: 87 QT: 347 QTc: 460 Interpretive Statements SINUS TACHYCARDIA NONSPECIFIC T-WAVE ABNORMALITY ABNORMAL RHYTHM ECG Compared to ECG 04/07/2025 11:29:25 No significant changes Electronically Signed On 04-07-2025 17:50:02 TELEVISION SERVICE ENGINEER by Sharif Arias M.D. [email or web address]
--- NOTE | 2025-04-07 14:40 | PM.HP ---
Providers/Chief Complaint Admitting Physician: Brian Butler Primary Care Provider: Shavonne Biswas MD Chief Complaint: lower abdominal pain History of Present Illness Marbin Funez is a 79 year old male with complex PMHx CAD (s/p MP), PVD s/p right iliac stent, chronic hypoxic respiratory failure, COPD, non-small cell lung cancer, urinary bladder cancer (2006 s/p TURP w/ intravesical therapy) Patient presented to the ED with a primary concern of right sided pain affecting multiple sites (hip, elbow, wrist). Notes pain to be severe, describing it as radiating from his right hip to his elbow when he coughs or sneezes. In addition, reports new left lower extremity pain. He has been slightly limited in his ambulation due to presence of pain. For pain management and home patient takes Tylenol, which has been ineffective most recently. Patient denies falls. Denies fever, chills, confusion, hemoptysis, chest pain and palpitations. Reports experiencing pleurisy with cough, occasional heartburn and shortness of breath with exertion. Uses oxygen at home, at night. Has not required increased use in his rescue inhalers. Patient was hospitalized last month for UTI and pneumonia. According to patient's daughter he has been battling UTI since December. Patient has a history of non-small cell lung cancer, treated with chemoradiation. He has been in remission since 2021. 1 month ago his imaging was cancer recurrence or metastasis. He has had a bone biopsy on 03/06/2025, results of which are unknown at this time. He also needs a lung biopsy which has been set up to complete in the outpatient setting. He follows with Dr. Feliciano (oncologist). Patient's workup in the ED was concerning for multifocal tachycardia, significant UTI and mild elevated troponins. Subsequently he was admitted for further monitoring and management. ED Course Reviewed Labs, 06/07/24 0903 Infection/Inflammation LA 2.4 -> 1.7 Hemogram WBC 9.45 RBC 4.24 PLT 360 HGB 12.4 HCT 37.5 Chemistry Na 129 K 4.1 Cl 92 Ca 9.4 Glu 194 Renal CO2 24 AG 17.1 BUN 8 Cr 0.5 Liver AST 14 ALT 9 ALP 87 T.Bili 0.4 Alb 4.1 T.Protein 6.4 Cardiac HS Trop 22 -> 19.26 Urinalysis SG 1.015, protein (1+), ketones (1+) LE (3+), WBC (> 100), bacteria (4+) CXR, 04/07/25 No significant change in spiculated soft tissue prominence right hilar/suprahilar. EKG, 04/07/25 Multifocal atrial tachycardia In ED received... 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 MAINTAINER on ASA, Plavix, and atorvastatin, continue # Chronic hyponatremia # DM 2T w/ hyperglycemia - Accuchecks AC/HS - PULLEY MAINTAINER on insulin glargine, continue at a dose reduced by 25% 30 units at bedtime - Start on medium dose SSI per hospital protocol - hypoglycemia protocol # Lactic acidosis LA 2.4 -> 1.7 - resolved # BPH w/ urinary retention - Continue PULLEY MAINTAINER meds finasteride 5 mg at bedtime Tamsulosin 0.8 mg daily # Non-small cell lung cancer stage IV (relapsed) Recent findings of bone metastasis 02/15/25 Prior non-small cell lung cancer in the right upper lung stage III 02/06/20 treated with combined chemoradiation (completed 06/2020). On surveillance monitoring 10/2021 - 02/2025, then suspected relapse right lung with bone metastasis. MRI Brain 02/28/25 with no metastasis.PET/CT shows right lung uptake suggestive of malignancy, mediastinal abdominal lymphadenopathy and multiple sites of bony metastasis. He had bone biopsy 02/2023, results pending. He has a pending pulmonary [facility] with [facility] Review of Systems General: Reports: 10 or more systems reviewed and unremarkable except in HPI and below Medications/Allergies Home Medications ?Medication ?Instructions ?Recorded ?Confirmed ?Last Taken ?Type Sole supports #1 ea 09/18/19 04/07/25 Unknown Rx aspirin 81 mg tablet,delayed 81 mg PO DAILY@12 09/18/19 04/07/25 04/07/25 History release cholecalciferol (vitamin D3) 25 25 mcg PO DAILY@0730 09/18/19 04/07/25 04/07/25 History mcg (1,000 unit) capsule Custom orthotics #1 ea 11/20/19 04/07/25 Unknown Rx Diabetic shoes with custom inserts #1 ea 12/08/20 04/07/25 Unknown Rx cetirizine 10 mg tablet 10 mg PO DAILY 10/07/21 04/07/25 04/07/25 History isosorbide mononitrate 60 mg 90 mg PO QAM 10/07/21 04/07/25 04/07/25 History tablet,extended release 24 hr multivitamin 1 tab PO QAM 10/07/21 04/07/25 04/07/25 History Diabetic Shoes with 3 sets of #1 ea 11/08/21 04/07/25 Unknown Rx insoles glucagon 1 mg solution for 1 mg SUBCUT Q20M PRN hypoglycemia 11/23/21 04/07/25 Unknown Rx injection (Glucagon Emergency Kit) #1 ea insulin glargine 100 unit/mL (3 40 unit SUBCUT DAILY 01/14/22 04/07/25 04/07/25 History mL) subcutaneous pen atorvastatin 80 mg tablet 40 mg (1/2 x 80 mg) PO QPM #45 tabs 04/06/22 04/07/25 04/06/25 Rx polyethylene glycol 3350 17 gram 34 g PO DAILY PRN Constipation 10/13/22 04/07/25 02/13/25 History oral powder packet (Miralax) clopidogrel 75 mg tablet 75 mg PO DAILY #90 tabs 03/07/24 04/07/25 04/07/25 Rx 2 Pairs of Custom Molded Orthotics #1 ea 03/15/24 04/07/25 Unknown Rx A5514 blood-glucose,woodworking belt sander,cont #1 ea 06/17/24 04/07/25 Unknown Rx (Dexcom G7 Blasting Clay Miner) diabetic shoes with custom inserts #1 ea 09/09/24 04/07/25 Unknown Rx Diabetic Shoes with 3 inserts #1 ea 12/09/24 04/07/25 Unknown Rx cilostazol 100 mg tablet 100 mg PO BID 02/14/25 04/07/25 04/07/25 History guaifenesin 600 mg tablet, 600 mg PO BID #90 tabs 02/19/25 04/07/25 04/07/25 Rx extended release 12 hr insulin aspart U-100 100 unit/mL See Rx Instructions .Route 02/20/25 04/07/25 04/07/25 Rx (3 mL) subcutaneous pen (Novolog .COMPLEX #15 mL FlexPen U-100 Insulin aspart) metformin 500 mg tablet,extended 500 mg PO BID #180 tabs 02/27/25 04/07/25 04/07/25 Rx release 24 hr ferrous sulfate 325 mg (65 mg 325 mg PO BID #60 tabs 03/06/25 04/07/25 04/07/25 Rx iron) tablet nitroglycerin 0.4 mg sublingual 0.4 mg sublingual Q5M PRN chest 04/01/25 04/07/25 Unknown Rx tablet pain #25 tabs albuterol sulfate 90 mcg/actuation 2 puff inhalation .Q4-6H PRN 04/07/25 04/07/25 Unknown History aerosol inhaler Shortness Of Breath blood-glucose sensor (Dexcom G7 #9 ea 04/07/25 Unknown Rx Sensor device) cefdinir 300 mg capsule 300 mg PO BID 10 days #20 caps 04/07/25 Unknown Rx finasteride 5 mg tablet 5 mg PO BEDTIME 04/07/25 04/07/25 04/06/25 History gabapentin 100 mg capsule 100 mg PO TID 04/07/25 04/07/25 04/07/25 History levothyroxine 175 mcg tablet 175 mcg PO QAM 04/07/25 04/07/25 04/07/25 History losartan 50 mg tablet 75 mg PO DAILY 04/07/25 04/07/25 04/07/25 History pantoprazole 40 mg tablet,delayed 40 mg PO QAM 04/07/25 04/07/25 04/07/25 History release prednisone 20 mg tablet 40 mg (2 x 20 mg) PO DAILY 5 days 04/07/25 Unknown Rx #10 tabs tamsulosin 0.4 mg capsule 0.8 mg PO BEDTIME 04/07/25 04/07/2504/06/25 History tiotropium 2.5 mcg-olodaterol 2.5 2 puff inhalation DAILY 04/07/25 04/07/25 04/07/25 History mcg/actuation mist for inhalation (Stiolto Respimat) tramadol 50 mg tablet 50 mg PO Q8H PRN pain #10 tabs 04/07/25 Unknown Rx Allergies Allergy/AdvReac Type Severity Reaction Status Date / Time No Known Allergies Allergy Verified 03/26/25 15:24 PFSH Acute PFSH: Medical History Paroxysmal A-fib Diabetic peripheral neuropathy associated with type 2 diabetes mellitus Emphysema of lung Congenital hammertoe of both feet History of chemotherapy History of radiation therapy Non-small cell lung cancer Malignant neoplasm of upper lobe, right bronchus or lung Stage IIIA - T2a, N2, M0 LPRD (laryngopharyngeal reflux disease) Overweight Hypothyroid AV fistula Peripheral arterial occlusive disease Severe claudication Abnormal stress test Atherosclerosis of [place] coronary artery of [place] heart with angina pectoris Lung nodule Type 2 diabetes mellitus with diabetic polyneuropathy, with long-term current use of insulin Bladder cancer PVD (peripheral vascular disease) Surgical History Port-A-Cath in place (04/01/20) H/O esophagogastroduodenoscopy (04/01/20) History of bronchoscopy History of bladder surgery History of surgical removal of pilonidal cyst H/O colonoscopy H/O heart artery stent Family History Other CAD (coronary artery disease) Cancer Diabetes Hyperlipidemia Hypertension Lung disease Denies family history of Clotting disorder Dementia Psychiatric illness Chronic kidney disease (CKD) Suicide Anesthesia complication Bleeding disorder Family history of premature coronary artery disease Stroke Social History Smoking and tobacco/nicotine status: never used tobacco/nicotine Quit status (tobacco/nicotine): has quit using Year quit tobacco: 2007 - - PPD x 45 Years Alcohol intake: never Substance/Drug Use: never Lives independently: Yes Household members: spouse Marital status: service: Yes Current occupational status: retired Do you think of yourself as: Straight/Heterosexual Current gender identity: Male Vitals/I&O/Wt Last Vital Signs Temp 98.1 F 04/07/25 08:25 Pulse 104 H 04/07/25 13:00 Resp 19 H 04/07/25 11:00 BP 156/89 04/07/25 13:00 Pulse Ox 92 04/07/25 13:00 O2 Del Method Room Air 04/07/25 13:00 04/06/25 04/07/25 04/07/25 22:59 06:59 14:59 Intake Total 1100 / 1100 Balance 1100 / 1100 Weight last 48 hrs Weight 86.636 kg Physical Exam Narrative: Constitutional: NAD Neurologic: AO x 3, no facial asymmetry or unilateral weakness Head: NC/AT Eyes: PERRLA, EOMI Ears: Normal external ears. Hearing intact to normal voice. Nose: Normal external nose. No epistaxis. Throat: MMM Respiratory: CTAB. No accessory muscle use. not wearing his oxygen Cardiovascular: Regular w/ ectopic or irregular beats. No murmur. Extremities: No edema bilaterally Gastrointestinal: Soft. NT. ND. +BS Genitourinary: No anderson catheter Musculoskeletal: Patient exhibits tenderness at the level of right clavicle right upper extremity on palpation Skin: pale appearing Data 04/07/25 09:03 04/07/25 09:03 Other Labs: Labs, 06/07/24 0903 reviewed Infection/Inflammation LA 2.4 -> 1.7 Hemogram WBC 9.45 RBC 4.24 PLT 360 HGB 12.4 HCT 37.5 Chemistry Na 129 K 4.1 Cl 92 Ca 9.4 Glu 194 Renal CO2 24 AG 17.1 BUN 8 Cr 0.5 Liver AST 14 ALT 9 ALP 87 T.Bili 0.4 Alb 4.1 T.Protein 6.4 Cardiac HS Trop 22 -> 19.26 Urinalysis SG 1.015, protein (1+), ketones (1+) LE (3+), WBC (> 100), bacteria (4+) Micro: Microbiology 04/07/25 13:17 Blood Culture - Preliminary Blood SPECIMEN COLLECTED 04/07/25 13:15 Blood Culture - Preliminary Blood SPECIMEN COLLECTED A&P Assessment and plan 1. Multifocal atrial tachycardia: 2. Acute cystitis: 3. Non-small cell lung cancer: 4. Generalized pain: Plan: # Generalized pain Suspect symptoms to be a sequela of metastatic disease # Multi-focal Tachycardia vs. AFIB ? - amiodarone gtt started in ED, continue # Acute cystitis UA (04/07) - LE (3+), WBC (> 100), bacteria (4+) - Blood culture x 2 collected in ED, results pending - Urine culture pending # Chronic hyponatremia Appears chronic. At his baseline. # Chronic hypoxemic respiratory failure # COPD without acute exacerbation On supplemental oxygen at 2L at baseline No URI symptoms presently Not having increase in O2 demand # elevated troponin HS Trop 22 -> 19, mild elevation No chest pain or ACS like symptoms # CAD w/ prior PCI and MP - PULLEY MAINTAINER on ASA, Plavix, and atorvastatin, continue # DM 2T w/ hyperglycemia - Accuchecks AC/HS - PULLEY MAINTAINER on insulin glargine, continue at a dose reduced by 25% 30 units at bedtime - Start on medium dose SSI per hospital protocol - hypoglycemia protocol # Lactic acidosis LA 2.4 -> 1.7 - resolved # BPH w/ urinary retention - Continue PULLEY MAINTAINER meds finasteride 5 mg at bedtime Tamsulosin 0.8 mg daily # Non-small cell lung cancer stage IV (relapsed) Recent findings of bone metastasis 02/15/25 Prior non-small cell lung cancer in the right upper lung stage III 02/06/20 treated with combined chemoradiation (completed 06/2020). On surveillance monitoring 10/2021 - 02/2025, then suspected relapse right lung with bone metastasis. MRI Brain 02/28/25 with no metastasis.PET/CT shows right lung uptake suggestive of malignancy, mediastinal abdominal lymphadenopathy and multiple sites of bony metastasis. He had bone biopsy 02/2023, results pending. He has a pending pulmonary biopsy with [facility] - Plan to discharge him in the near future so he can follow-up for his scheduled bronchoscopy # Primary HTN BP w/ byzw-ti-kkrxvcoo elevation - Continue trending - PULLEY MAINTAINER on losartan and isosorbide mononitrate, resume PDMP PDMP Reviewed: Not Reviewed Attestations Medical Necessity Statement*: Patient is being admitted under observation status. Patient will require less than 2 nights for the management of his multifocal tachycardia with continuous IV infusion, cystitis and generalized pain. Coding Level of Care Code 36473 Diagnoses Multifocal atrial tachycardia I47.19 Acute cystitis N30.00 Non-small cell lung cancer C34.90 Generalized pain R52
[2025-04-07 16:09] LABS: Troponin 5 6HR 17.19 ng/L (0-15); Troponin 5 6HR Delta -4.81 ng/L (0-12)
--- NOTE | 2025-04-07 18:25 | PC.NURSE ---
bladder scan shows 469 mls in bladder. notified hospitalist Chacha. She will put orders for straight cath and post void bladder scan. Informed AIRPORT PLANNER Chacha that pt refused straight catheter.
--- NOTE | 2025-04-07 19:25 | PC.NURSE ---
Pt voided in the bathroom. Pt declined to be straight cath. he stated, i don't want that thing, i still have pain from the previous catheter insertion. After pt voided 250 cc of urine output, we bladder scanned him and it shows 277 as shows in machine.
[2025-04-07] MEDS: polyethylene glycol 3350 Pkt 17 gm PO (20:18)
[2025-04-08] VITALS (18 sets, daily range): BP systolic 96–181; BP diastolic 51–109; PULSE 88–105; RESP 13–23; TEMP 36.4–36.7; O2SAT 90–96
[2025-04-08 03:23] LABS: Hematocrit 39.3 % (37-53); Hemoglobin 12.90 g/dL (11.27-16.99); Mean Corpuscular HGB Conc 32.8 g/dL (30-55); Mean Corpuscular Hemoglobin 28.4 pg (27-33); Mean Corpuscular Volume 86.6 fl (82-101); Nucleated Red Blood Cells % 0 %; Platelet Count 417 10^3/cmm (157-399); Red Blood Count 4.54 10^6/uL (3.85-5.65); White Blood Count 7.54 10^3/uL (3.29-11.43)
[2025-04-08] MEDS: polyethylene glycol 3350 Pkt 17 gm PO (03:57)
[2025-04-08 03:58] LABS: Anion Gap 18.3 (5-19); Blood Urea Nitrogen 11 mg/dL (8-23); Calcium 9.9 mg/dL (8.5-10.5); Carbon Dioxide 25 mmol/L (22-29); Chloride 90 mmol/L (98-107); Glucose 213 mg/dL (65-115); Magnesium 1.7 mg/dL (1.7-2.3); Osmolality Calculated 274 mOsm/kg (285-295); Potassium 4.3 mmol/L (3.5-5.1); Sodium 129 mmol/L (136-145)
--- NOTE | 2025-04-08 04:13 | PC.NURSE ---
contacted MD about patient requesting to have daily doses of guaifenesin to be ordered and given, MD ordered 600mg of guaifenesin BID which is patient home dose contacted MD about 12/22 pain in right hip all patient had on JUL was Tylenol, it was given but not effective, pain raised from a 10/22 to 12/22. ordered a one time dose of toradol 15mg IVP, order entered and given see JUL
--- NOTE | 2025-04-08 08:30 | USR_ITS ---
PROCEDURE INFORMATION: Exam: US Retroperitoneal, Complete, Kidneys, Aorta, IVC. Exam date and time: 04/08/2025 8:50 AM Age: 79 years old Clinical indication: Condition or disease; Other: UTI TECHNIQUE: Imaging protocol: Real-time ultrasound of the retroperitoneum with image documentation. Complete exam focused on the bilateral kidneys, aorta, and inferior vena cava. COMPARISON: CT abdomen pelvis w con* [id number] 12/30/2024 2:40 PM FINDINGS: Right kidney: The right kidney measures 10.6 cm. There is normal renal cortical echotexture and thickness. There is no hydronephrosis or shadowing stone. Left kidney: The left kidney measures 11.4 cm. There is normal renal cortical echotexture and thickness. There is no hydronephrosis or shadowing stone. Aorta: The abdominal aorta measures 1.9 cm. Common iliac arteries: Normal. Inferior vena cava: Normal. Urinary bladder: The bladder is incompletely distended. It is poorly evaluated. US/US renal BI* [id number] IMPRESSION: No acute process.
[2025-04-08] MEDS: insulin glargine 100 units/1 mL 30 UNIT SUBCUT (08:32)
--- NOTE | 2025-04-08 09:04 | XRR_ITS ---
PROCEDURE INFORMATION: Exam: XR Lumbosacral Spine Exam date and time: 04/08/2025 10:41 AM Age: 79 years old Clinical indication: Low back pain; HX of lung and bladder cancer; Additional info: Pain, biopsy site, metastatic cancer TECHNIQUE: Imaging protocol: Radiologic exam of the lumbosacral spine. Views: 2 or 3 views. COMPARISON: CT lumbar spine w con [id number] 05/24/2021 9:55 AM FINDINGS: Bones/joints: Patient has a no lytic or destructive lesion of the right L1 pedicle not well detailed by this radiograph. The vertebral body heights are well-maintained. There remains chronic anterior wedging of the L1 vertebral body with approximately 15% anterior height loss. Mild degenerative endplate changes are present throughout. Ftuv-uh-wztqxipt degenerative facet arthropathy is present throughout. There is no subluxation, retropulsion, or scoliosis present. Soft tissues: Unremarkable. XR/XR lumbar spine 2-3V* [id number] IMPRESSION: 1. Mild to moderate degenerative changes throughout. 2. Chronic anterior wedging of the L1 vertebral body. 3. Known lytic destructive lesion of the right L1 pedicle. This is not well detailed on this radiograph. If pain persists, consider MRI lumbar spine to evaluate for epidural extension of tumor.
--- NOTE | 2025-04-08 09:04 | XRR_ITS ---
PROCEDURE INFORMATION: Exam: XR Bilateral Hips Exam date and time: 04/08/2025 10:38 AM Age: 79 years old Clinical indication: Hip pain; Bilateral; HX of lung and bladder cancer; Additional info: Pain, metstatic cancer TECHNIQUE: Imaging protocol: Radiologic exam of the bilateral hips. Views: 2 views of hips with pelvis when performed. COMPARISON: PET-CT from 02/28/2025 FINDINGS: Bones/joints: The femoral heads are located. There is no fracture. There is mild bilateral hip degenerative acetabular subchondral sclerosis and lateral acetabular osteophytosis. There is no fracture. Mild degenerative changes are present at the SI joints and pubic symphysis. Patient has known lytic lesions in radiotracer uptake within the sacrum on recent PET imaging. This is not well detailed by radiograph. Soft tissues: The arcuate lines are intact. Vasculature: There is prominent atherosclerotic calcification identified within the iliac vasculature and common femoral arteries. XR/XR hip BI 2V wo/w pel [id number] IMPRESSION: 1. Mild bilateral hip degenerative osteoarthritis without radiographic evidence of acute process. 2. Previously defined PET lytic radiotracer active lesions within the sacrum are not well-defined by radiograph. If pain persists or if there is high clinical concern for fracture, followup MRI.
--- NOTE | 2025-04-08 09:04 | XRR_ITS ---
PROCEDURE INFORMATION: Exam: XR Right Shoulder Exam date and time: 04/08/2025 10:31 AM Age: 79 years old Clinical indication: Pain; Shoulder; Right TECHNIQUE: Imaging protocol: Radiologic exam of the right shoulder. Views: 2 or more views. COMPARISON: CR XR chest 1V portable [id number] 04/07/2025 8:33 AM FINDINGS: Bones/joints: The humeral head is located. There is no fracture. There is mild acromioclavicular and glenohumeral joint degenerative osteoarthritis with marginal osteophytosis. Chronic scarring is defined within the right upper lobe. Soft tissues: Normal. XR/XR shoulder RT min 2V* [id number] IMPRESSION: Mild acromioclavicular and glenohumeral joint degenerative osteoarthritis.
[2025-04-08] MEDS: HYDROmorphone 0.5 MG/0.5 ML INJ IVP ×3 (10:04→22:36)
--- NOTE | 2025-04-08 10:37 | PC.CHAP ---
Pastoral Care Encounter/Spiritual Assessment Type of Contact [] Declined liquor merchant visit [] Patient/Family/Request visit [] Outpatient visit [] Follow-up visit [] Physician referral [] Code/Alert [x] Routine visit [] Staff referral [] Actively dying [] Patient sleeping [x] Family support [] [] Out of room [] Palliative care [] [] Receiving care in room [] Pre-surgical visit [] Trauma [] Long length of stay [] ICU visit [] Other: Relational/Emotional Strength [x] Patient feels connected with others/family/visitors/staff [] Distress [] Loneliness/isolation [] Abandonment Spirituality of Patient [x] Person of Claribel [] Attends Adventist of their [place] [x] Believes in Prayer [] Reads Bible or Zoroastrian materials [] There are Spiritual issues to be addressed Seamer Operator Interventions [x] Prayer [x] Active listening [] Non-anxious presence [x] Spiritual/emotional support [] Crisis/trauma care [] Spiritual counseling [] Bereavement support [] Provided bereavement packet [] Provided Bible/devotional materials [] Provided toy/stuffed animal, coloring book to patient or family member [] Provided Communion [] Anointing/Warren [] Salvation [x] Completed spiritual assessment [] Other: Impact on Illness or Injury [] Angry [] Fearful [] Anxious [] Often cries [] Exhaustion [] Unable to work [] Unable to attend restorationist [] Unable to walk/stand [] Unable to read [] Unable to drive [] Unable to eat/drink [] Unable to sleep [] Unable to be with family [] Patient intubated [] Other: Summary Time spent with patient 5 min
--- NOTE | 2025-04-08 13:48 | P.PN_ITS ---
Subjective 2 Subjective: - Patient was seen this morning - Reports generalized musculoskeletal ac hes and pain - But does have hip pain, back pain, rig ht shoulder pain - He tells me that he had biopsy in [facility] the [facility] - No dysuria, hematuria no flank pain - Does report generalized weakness Vitals/I&O/Wt Last Vital Signs Temp 98.0 F 04/08/25 07:57 Pulse 98 04/08/25 12:00 Resp 18 04/08/25 12:00 BP 96/51 04/08/25 12:00 Pulse Ox 95 04/08/25 12:00 O2 Del Method Room Air 04/08/25 08:34 04/07/25 04/08/25 04/08/25 22:59 06:59 14:59 Intake Total 568.313 / 9443.304 1959.687 / 1251.687 Output Total 250 / 250 750 / 1000 50 / 50 Balance 318.313 / 1418.313 -750 / 460.887 6461.687 / 1201.687 Weight last 48 hrs Weight 87.8 kg Weight 86.4 kg Weight 86.636 kg Physical Exam 2 Const: COMMON NORMALS: no acute distress and patient oriented x3 Resp: COMMON NORMALS: normal respiratory effort, No retractions, No use of accessory muscles and clear to auscultation bilaterally AUSCULTATION: clear to auscultation bilaterally Cardio: COMMON NORMALS: regular rate, regular rhythm, S1 normal heart sound present and S2 normal heart sound present RATE: regular rate RHYTHM: r egular rhythm HEART SOUNDS: S1 normal heart sound present and S2 normal heart sound present GI: COMMON NORMALS: Normal to inspection, nondistended, normoactive bowel sounds present and non-tender Extremity: COMMON NORMALS: no pedal edema Neuro: COMMON NORMALS: patient oriented x3, CN's II-XII intact bilaterally and moves all extremities Psych: COMMON NORMALS: mental status grossly normal Data 04/08/25 03:07 04/08/25 03:07 Micro: Microbiology 04/07/25 13:17 Blood Culture - Preliminary Blood NEGATIVE TO DATE 04/07/25 13:15 Blood Culture - Preliminary Blood NEGATIVE TO DATE 04/07/25 09:32 Urine Culture - Preliminary Urine,Clean Catch Gram Negative Rods A&P Assessment and plan 1. Multifocal atrial tachycardia: 2. Acute cystitis: 3. Non-small cell lung cancer: 4. Generalized pain: Plan: # Generalized pain - PT OT - Pain control # Atrial fibrillation with rapid ventricle response - Transition off amiodarone to p.o. 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 on ASA, Plavix, and atorvastatin, continue # DM 2T w/ hyperglycemia -Insulin sliding scale # Lactic acidosis - resolved # BPH w/ urinary retention - Continue TELEGRAPH EQUIPMENT MAINTAINER meds finasteride 5 mg at bedtime Tamsulosin 0.8 mg daily # Non-small cell lung cancer stage IV (relapsed) -Follow-up biopsy results # Primary HTN BP w/ ucop-ko-tbocpsqo elevation # Acute pain, possible cancer related pain - Pain control, requiring IV Dilaudid - X-ray right shoulder, lumbar spine, bilateral hips PDMP PDMP Reviewed: Not Reviewed Attestations 2 Medical Necessity Statement*: Patient requires hospitalization for UTI, pain control, concern for metastatic disease Diagnoses Multifocal atrial tachycardia I47.19 Acute cystitis N30.00 Non-small cell lung cancer C34.90 Generalized pain R52
[2025-04-08 16:01] LABS: Glucose Urine UA 3+ (Normal); Nitrate Urine Negative (Negative)
[2025-04-08] MEDS: cefTRIAXone 1,000 mg SDV 1000 MG IVP (16:02)
[2025-04-08 16:42] LABS: Specific Gravity, Urine 1.035 (1.005-1.030)
[2025-04-08] MEDS: polyethylene glycol 3350 Pkt 17 gm 34 GM PO (17:37)
--- NOTE | 2025-04-08 17:50 | CTR_ITS ---
PROCEDURE INFORMATION: Exam: CT Lumbar Spine Without Contrast Exam date and time: 04/08/2025 8:51 PM Age: 79 years old Clinical indication: Low back pain; Additional info: Pain, metastatic cancer TECHNIQUE: Imaging protocol: Computed tomography of the lumbar spine without contrast. Radiation optimization: All CT scans at this facility use at least one of these dose optimization techniques: automated exposure control; mA and/or kV adjustment per patient size (includes targeted exams where dose is matched to clinical indication); or iterative reconstruction. COMPARISON: PT PET skull to thigh SUBS [id number] 02/28/2025 1:50 PM RADIATION DOSE METRICS: Total DLP (mGy-cm): 942.63 FINDINGS: Bones/joints: L1 vertebral body compression fracture with underlying sclerosis similar to prior exam likely reflecting a pathologic fracture with underlying metastatic disease, MRI could further characterize this. Additionally there is a lytic bony lesion involving largely the right pedicle also likely reflecting metastatic disease, MRI could further evaluate this for involvement of the spinal canal. L1-L2: No significant disc bulge or herniation. No severe spinal canal stenosis. No significant neural foraminal narrowing. L2-L3: No significant disc bulge or herniation. No severe spinal canal stenosis. No significant neural foraminal narrowing. L3-L4: L3-L4 broad-based disc bulge with mild bilateral foraminal narrowing. L4-L5: L4-L5 broad-based disc bulge with severe spinal canal and bilateral foraminal narrowing. L5-S1: L5-S1 broad-based disc bulge with moderate bilateral foraminal narrowing. Lungs: Emphysematous changes. Pleural spaces: Kxnyqmxm-le-vayrq right pleural effusion somewhat visualized. Soft tissues: Several subcentimeter enlarged lymph nodes near the diaphragmatic hiatus, likely reflecting metastatic disease. Extensive mesenteric and bilateral renal artery atherosclerotic calcifications. CT/CT lumbar spine wo con* [id number] IMPRESSION: 1. L1 vertebral body compression fracture with underlying sclerosis similar to prior exam likely reflecting a pathologic fracture with underlying metastatic disease, MRI could further characterize this. Additionally there is a lytic bony lesion involving largely the right pedicle also likely reflecting metastatic disease, MRI could further evaluate this for involvement of the spinal canal. 2. Osmqzbgq-pp-pjskc right pleural effusion somewhat visualized. 3. Emphysematous changes. 4. L3-L4 broad-based disc bulge with mild bilateral foraminal narrowing. 5. L4-L5 broad-based disc bulge with severe spinal canal and bilateral foraminal narrowing. 6. L5-S1 broad-based disc bulge with moderate bilateral foraminal narrowing. 7. Several subcentimeter enlarged lymph nodes near the diaphragmatic hiatus, likely reflecting metastatic disease. 8. Extensive mesenteric and bilateral renal artery atherosclerotic calcifications.
[2025-04-09] VITALS (8 sets, daily range): BP systolic 95–175; BP diastolic 62–89; PULSE 94–98; RESP 14–16; TEMP 36.4–36.7; O2SAT 91–96; BMI 31.5
[2025-04-09] MEDS: polyethylene glycol 3350 Pkt 17 gm PO (05:10)
[2025-04-09] MEDS: HYDROmorphone 0.5 MG/0.5 ML INJ IVP ×2 (05:17→09:04)
[2025-04-09 06:19] LABS: Hematocrit 37.9 % (37-53); Hemoglobin 12.60 g/dL (11.27-16.99); Mean Corpuscular HGB Conc 33.2 g/dL (30-55); Mean Corpuscular Hemoglobin 29.4 pg (27-33); Mean Corpuscular Volume 88.3 fl (82-101); Nucleated Red Blood Cells % 0 %; Platelet Count 430 10^3/cmm (157-399); Red Blood Count 4.29 10^6/uL (3.85-5.65); White Blood Count 11.91 10^3/uL (3.29-11.43)
[2025-04-09 06:33] LABS: Alanine Aminotransferase 9 U/L (0-41); Albumin Level 4.1 g/dL (3.5-5.2); Alkaline Phosphatase 78 U/L (40-130); Anion Gap 15.4 (5-19); Aspartate Amino Transferase 15 U/L (0-40); Blood Urea Nitrogen 12 mg/dL (8-23); Calcium 9.3 mg/dL (8.5-10.5); Carbon Dioxide 28 mmol/L (22-29); Chloride 93 mmol/L (98-107); Globulin 2.9 g/dL (1.3-4.6); Glucose 182 mg/dL (65-115); Osmolality Calculated 278 mOsm/kg (285-295); Potassium 4.4 mmol/L (3.5-5.1); Sodium 132 mmol/L (136-145); Total Protein 7.0 g/dL (6.6-8.7)
[2025-04-09] MEDS: insulin glargine 100 units/1 mL 30 UNIT SUBCUT (08:01)
[2025-04-09] MEDS: Fleet Enema 133 mL Enema PR (09:04)
[2025-04-09] MEDS: lactulose oral liq 20 gm/30 mL UDC PO (09:04)
[2025-04-09] MEDS: HYDROcodone-acetaminophen 5-325 mg Tablet 1 TAB PO (14:24)
--- NOTE | 2025-04-09 14:56 | PM.DCS ---
Discharge Providers Date of Admission: 04/08/25 10:55 Date of Discharge: April 09, 2025 Attending Provider at Admission: Brian Butler Attending Provider at Discharge: Ander Dos Santos MD Primary Care Provider: Shavonne Biswas MD Diagnoses at Discharge Discharge Diagnosis 1. Multifocal atrial tachycardia: 2. Acute cystitis: 3. Non-small cell lung cancer: 4. Generalized pain: Reason for Visit Reason for Visit: lower abdominal pain Hospital Course Hospital Course This is a 79-year-old male with a past medical history of CAD status post stenting, history of COPD, non-small cell lung cancer, history of bladder cancer, peripheral vascular disease, who presents to [facility] for diffuse musculoskeletal pain, tachycardia In the emergency room, patient was found to have A-fib with RVR versus multifocal atrial tachycardia, was placed on amiodarone drip, during my examination multiple times throughout his hospitalization and patient would convert to normal sinus rhythm, go into multifocal atrial tachycardia with shortness of breath and pain, and then A-fib with RVR, eventually atrial fibrillation with RVR was controlled with amiodarone drip, transition to p.o. amiodarone - During his prior hospital patient there was concern for atrial fibrillation versus multifocal atrial tachycardia, favored mat, and his beta-kris was titrated - During his hospitalization we did detailed discussion about anticoagulant therapy - Discussion of MAT versus A-fib with RVR - Discussed risk and benefits of anticoagulant therapy - Discussed risk of stroke versus risk of bleeding - After detailed discussion, shared decision making, patient voiced understanding, all questions answered, shared decision making, agreed to proceed with anticoagulant therapy - Will stop aspirin on discharge - Continue Eliquis and milligrams twice daily - Continue Plavix Urinary tract infection - Managed with IV antibiotics - Urines speciation with Klebsiella species - Discharged with p.o. antibiotics Acute hypoxic respiratory failure with history of chronic respiratory failure - Intermittently with A-fib with RVR, pain - Resolved on discharge For history of non-small cell lung cancer - Patient had a biopsy of lumbar spine - Discussed case with Dr. 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 Feliciano as outpatient Spoke to patient about his CT scan findings as below CT/CT lumbar spine wo con* [id number] IMPRESSION: 1. L1 vertebral body compression fracture with underlying sclerosis similar to prior exam likely reflecting a pathologic fracture with underlying metastatic disease, MRI could further characterize this. Additionally there is a lytic bony lesion involving largely the right pedicle also likely reflecting metastatic disease, MRI could further evaluate this for involvement of the spinal canal. - Received inpatient PT OT -Discussed case with Dr. Whitmore, recommended for patient to be followed up with him as outpatient, but no immediate need for kyphoplasty - Will discharge him on a short supply of hydrocodone to be used sparingly for pain - Advised for him to avoid strenuous activity, avoid any heavy lifting - Will have him follow-up with Dr. Feliciano as outpatient for consideration of radiation therapy Physical Exam Const: COMMON NORMALS: no acute distress and patient oriented x3 Eye: COMMON NORMALS: Equal, round and reactive pupils present PUPIL: Yes Equal, round and reactive pupils present Resp: COMMON NORMALS: normal respiratory effort, No retractions, No use of accessory muscles and clear to auscultation bilaterally AUSCULTATION: clear to auscultation bilaterally Cardio: COMMON NORMALS: regular rate, regular rhythm, S1 normal heart sound present and S2 normal heart sound present RATE: regular rate RHYTHM: regular rhythm HEART SOUNDS: S1 normal heart sound present and S2 normal heart sound present GI: COMMON NORMALS: Normal to inspection, nondistended, normoactive bowel sounds present and non-tender Extremity: COMMON NORMALS: no pedal edema Neuro: COMMON NORMALS: patient oriented x3, CN's II-XII intact bilaterally and moves all extremities Psych: COMMON NORMALS: mental status grossly normal Discharge Data Studies Completed and Pending Completed Studies During Hospitalization Category Date Time Status CT lumbar spine wo con* [id number] Routine Cat Scan 04/08/25 17:50 Completed XR chest 1V portable [id number] Stat Exams 04/07/25 08:32 Completed XR hip BI 2V wo/w pel [id number] Routine Exams 04/08/25 09:04 Completed XR lumbar spine 2-3V* [id number] Routine Exams 04/08/25 09:04 Completed XR shoulder RT min 2V* [id number] Routine Exams 04/08/25 09:04 Completed US renal BI* [id number] Routine Ultrasound 04/08/25 08:30 Completed Pending at discharge Category Date Time Status Blood Culture Stat Lab 04/07/25 13:17 Results Complete Blood Count w/Auto AM LABS Lab 04/10/25 04:00 Ordered Complete Blood Count w/Auto AM LABS Lab 04/11/25 04:00 Ordered Comprehensive Metabolic Panel AM LABS Lab 04/10/25 04:00 Ordered Comprehensive Metabolic Panel AM LABS Lab 04/11/25 04:00 Ordered Urine Culture Routine Lab 04/08/25 15:20 Results Urine Culture Stat Lab 04/07/25 09:32 Results Radiology Impressions Chest X-Ray 04/07/25 08:32 IMPRESSION: No significant change in spiculated soft tissue prominence right hilar/suprahilar. Renal Ultrasound 04/08/25 08:30 IMPRESSION: No acute process. Hip/Pelvis X-Ray 04/08/25 09:04 IMPRESSION: 1. Mild bilateral hip degenerative osteoarthritis without radiographic evidence of acute process. 2. Previously defined PET lytic radiotracer active lesions within the sacrum are not well-defined by radiograph. If pain persists or if there is high clinical concern for fracture, followup MRI. Lumbar Spine X-Ray 04/08/25 09:04 IMPRESSION: 1. Mild to moderate degenerative changes throughout. 2. Chronic anterior wedging of the L1 vertebral body. 3. Known lytic destructive lesion of the right L1 pedicle. This is not well detailed on this radiograph. If pain persists, consider MRI lumbar spine to evaluate for epidural extension of tumor. Shoulder X-Ray 04/08/25 09:04 IMPRESSION: Mild acromioclavicular and glenohumeral joint degenerative osteoarthritis. ADDENDUM: 04/08/25 1009 Addendum: Patient has known osseous metastatic disease. No definitive lytic or blastic lesion is appreciated within the right shoulder. On prior PET-CT from 02/17/2025 imaging there is defined lytic radiotracer active lesion of the right T1 transverse process and posterior 1st rib not as well detailed on this radiograph. If pain persists consider follow-up MRI of the right shoulder. Lumbar Spine CT 04/08/25 17:50 IMPRESSION: 1. L1 vertebral body compression fracture with underlying sclerosis similar to prior exam likely reflecting a pathologic fracture with underlying metastatic disease, MRI could further characterize this. Additionally there is a lytic bony lesion involving largely the right pedicle also likely reflecting metastatic disease, MRI could further evaluate this for involvement of the spinal canal. 2. Blzxyunk-bd-nzflc right pleural effusion somewhat visualized. 3. Emphysematous changes. 4. L3-L4 broad-based disc bulge with mild bilateral foraminal narrowing. 5. L4-L5 broad-based disc bulge with severe spinal canal and bilateral foraminal narrowing. 6. L5-S1 broad-based disc bulge with moderate bilateral foraminal narrowing. 7. Several subcentimeter enlarged lymph nodes near the diaphragmatic hiatus, likely reflecting metastatic disease. 8. Extensive mesenteric and bilateral renal artery atherosclerotic calcifications. Laboratory Results WBC 11.91 10^3/uL (3.29-11.43) H 04/09/25 05:25 RBC 4.29 10^6/uL (3.85-5.65) 04/09/25 05:25 Hgb 12.60 g/dL (11.27-16.99) 04/09/25 05:25 Hct 37.9 % (37-53) 04/09/25 05:25 MCV 88.3 fl (82-101) 04/09/25 05:25 MCH 29.4 pg (27-33) 04/09/25 05:25 MCHC 33.2 g/dL (30-55) 04/09/25 05:25 RDW 16.4 % (12.1-15.1) H 04/09/25 05:25 Plt Count 430 10^3/cmm (157-399) H 04/09/25 05:25 MPV 8.5 fL (7.4-10.4) 04/09/25 05:25 Neut % (Auto) 81.2 % 04/09/25 05:25 Lymph % (Auto) 8.1 % 04/09/25 05:25 Reynolds % (Auto) 7.8 % 04/09/25 05:25 Eos % (Auto) 2.2 % 04/09/25 05:25 Baso % (Auto) 0.4 % 04/09/25 05:25 Neut # (Auto) 9.67 10^3/uL (1.8-7.7) H 04/09/25 05:25 Lymph # (Auto) 1.0 10^3/uL (0.8-4.8) 04/09/25 05:25 Reynolds # (Auto) 0.9 10^3/uL (0.2-0.9) 04/09/25 05:25 Eos # (Auto) 0.3 10^3/uL (0.0-0.8) 04/09/25 05:25 Baso # (Auto) 0.1 10^3/uL (0.0-0.1) 04/09/25 05:25 Nucleated RBC % (auto) 0 % 04/09/25 05:25 Nucleated RBCs # 0.0 /100WBC 04/09/25 05:25 Sodium 132 mmol/L (136-145) L 04/09/25 05:25 Potassium 4.4 mmol/L (3.5-5.1) 04/09/25 05:25 Chloride 93 mmol/L (98-107) L 04/09/25 05:25 Carbon Dioxide 28 mmol/L (22-29) 04/09/25 05:25 Anion Gap 15.4 (5-19) 04/09/25 05:25 BUN 12 mg/dL (8-23) 04/09/25 05:25 Creatinine 0.4 mg/dL (0.7-1.2) L 04/09/25 05:25 GFR Calculation Not Reportable 04/09/25 05:25 Glucose 182 mg/dL (65-115) H 04/09/25 05:25 POC Glucose 223 mg/dL (70-110) H 04/09/25 10:57 Calculated Osmolality 278 mOsm/kg (285-295) L 04/09/25 05:25 Lactic Acid 2.4 mmol/L (0.5-2.2) H 04/07/25 09:03 Lactic Acid (Sepsis) 1.7 mmol/L (0.5-2.2) 04/07/25 11:44 Calcium 9.3 mg/dL (8.5-10.5) 04/09/25 05:25 Magnesium 1.7 mg/dL (1.7-2.3) 04/08/25 03:07 Total Bilirubin 0.2 mg/dL (0.15-1.2) 04/09/25 05:25 AST 15 U/L (0-40) 04/09/25 05:25 ALT 9 U/L (0-41) 04/09/25 05:25 Alkaline Phosphatase 78 U/L (40-130) 04/09/25 05:25 Troponin T Baseline 22 ng/L (0-15) H 04/07/25 09:03 Troponin T 120 Minute 19.26 ng/L (0-15) H 04/07/25 11:27 Delta Troponin T -2.74 ABS# (0-10) L 04/07/25 11:27 Troponin T Hi Sens 6Hr 17.19 ng/L (0-15) H 04/07/25 15:30 Troponin T Hi Sens 6Hr Delta -4.81 ng/L (0-12) L 04/07/25 15:30 Total Protein 7.0 g/dL (6.6-8.7) 04/09/25 05:25 Albumin 4.1 g/dL (3.5-5.2) 04/09/25 05: Globulin 2.9 g/dL (1.3-4.6) 04/09/25 05: Urine Color Dark yellow (Yellow) A 04/08/25 15:20 Urine Appearance Cloudy (CLEAR) A 04/08/25 15:20 Urine pH 5.5 (5-7) 04/08/25 15:20 Ur Specific Cosby 1.035 (1.005-1.030) H 04/08/25 15:20 Urine Protein 2+ (Negative) A 04/08/25 15:20 Urine Glucose (UA) 3+ (Normal) H 04/08/25 15:20 Urine Ketones Trace (Negative) 04/08/25 15:20 Urine Blood Trace (Negative) A 04/08/25 15:20 Urine Nitrate Negative (Negative) 04/08/25 15:20 Urine Bilirubin Negative (Negative) 04/08/25 15:20 Urine Urobilinogen 1.0 mg/dL (Negative) 04/08/25 15:20 Ur Leukocyte Esterase 2+ (Negative) A 04/08/25 15:20 Urine RBC 0-2 /hpf (0-2) 04/08/25 15:20 Urine WBC >100 /hpf (0-5) H 04/08/25 15:20 Ur Squamous Epith Cells 0-5 /hpf (0-5) 04/08/25 15:20 Amorphous Sediment Not Reportable 04/08/25 15:20 Urine Bacteria None seen /hpf (NONE) 04/08/25 15:20 Hyaline Casts 2.87 /lpf 04/08/25 15:20 Vitals Last Vital Signs Temp 98.0 F 04/09/25 12:00 Pulse 94 04/09/25 12:00 Resp 14 04/09/25 12:00 BP 95/62 04/09/25 12:00 Pulse Ox 96 04/09/25 12:00 O2 Del Method Room Air 04/09/25 09:12 Discharge Plan Discharge Patient Disposition: Home Condition: Stable Prescriptions: New prednisone 20 mg tablet 40 mg PO DAILY 5 Days Qty: 10 0RF cefdinir 300 mg capsule 300 mg PO BID 10 Days Qty: 20 0RF amiodarone [Pacerone] 200 mg Tablet See Rx Instructions .ROUTE .COMPLEX 30 Days Qty: 60 0RF Rx Instructions: 1 tab twice daily for 3 days followed by 1 tab daily Eliquis 5 mg tablet 5 mg PO BID 30 Days Qty: 60 0RF hydrocodone-acetaminophen 5-325 mg tablet 1 tab PO Q6H PRN (Reason: pain) 7 Days Qty: 28 0RF cefdinir 300 mg capsule 300 mg PO BID 5 Days Qty: 10 0RF Continued cholecalciferol (vitamin D3) 25 mcg (1,000 unit) capsule 25 mcg PO DAILY@0730 (DME) Sole supports Qty: 1 0RF Rx Instructions: As directed (DME) Custom orthotics See Rx Instructions .Route .MEDSUPPLY Qty: 1 0RF Rx Instructions: [facility] ([facility]) Diabetic shoes with custom inserts See Rx Instructions .Route .MEDSUPPLY Qty: 1 0RF Rx Instructions: As directed BY [facility] (DME) Diabetic Shoes with 3 sets of insoles See Rx Instructions .Route .MEDSUPPLY Qty: 1 0RF Rx Instructions: As directed by [facility] clopidogrel 75 mg tablet 75 mg PO DAILY Qty: 90 3RF (DME) diabetic shoes with custom inserts See Rx Instructions .Route .MEDSUPPLY Qty: 1 0RF Rx Instructions: As directed to [facility] Glucagon Emergency Kit (human) 1 mg recon soln 1 mg SUBCUT Q20M PRN (Reason: hypoglycemia) Qty: 1 3RF Rx Instructions: until target blood sugar attained polyethylene glycol 3350 [Miralax] 17 gram powder in packet 34 g PO DAILY PRN (Reason: Constipation) (DME) Diabetic Shoes with 3 inserts See Rx Instructions .Route .MEDSUPPLY Qty: 1 0RF Rx Instructions: As directed to the shoe guys ferrous sulfate 325 mg (65 mg iron) tablet 325 mg PO BID Qty: 60 0RF atorvastatin 80 mg tablet 40 mg PO QPM Qty: 45 3RF (DME) 2 Pairs of Custom Molded Orthotics A5514 See Rx Instructions .Route .MEDSUPPLY Qty: 1 0RF Rx Instructions: As directed [facility] (DME) Dexcom G7 Social Worker Palliative Care Misc See Rx Instructions .Route Qty: 1 0RF Rx Instructions: As directed metformin 500 mg tablet extended release 24 hr 500 mg PO BID Qty: 180 3RF nitroglycerin 0.4 mg tablet, sublingual 0.4 mg sublingual Q5M PRN (Reason: chest pain) Qty: 25 3RF Rx Instructions: do not exceed 3 doses per episode (DME) Dexcom G7 Sensor Device See Rx Instructions .ROUTE .COMPLEX Qty: 9 0RF Dose Instruction: USE 1 SENSOR UNDER THE SKIN EVERY 10 DAYS CHANGE SENSOR/SITE EVERY 10 DAYS. CONTACT [facility]EX[facility] CUSTOMER SERVICE AT FOR REPLACEMENT OF DAMAGED/MALFUNCTIONING SENSORS. Rx Instructions: USE 1 SENSOR UNDER THE SKIN EVERY 10 DAYS CHANGE SENSOR/SITE EVERY 10 DAYS. CONTACT [facility] CUSTOMER SERVICE AT FOR REPLACEMENT OF DAMAGED/MALFUNCTIONING SENSORS. isosorbide mononitrate 60 mg Tablet Extended Release 24 Hr 90 mg PO QAM cetirizine 10 mg Tablet 10 mg PO DAILY multivitamin Tablet 1 tab PO QAM cilostazol 100 mg Tablet 100 mg PO BID guaifenesin 600 mg tablet extended release 12hr 600 mg PO BID Qty: 90 3RF levothyroxine 175 mcg Tablet 175 mcg PO QAM tamsulosin 0.4 mg capsule 0.8 mg PO BEDTIME pantoprazole 40 mg tablet,delayed release (DR/EC) 40 mg PO QAM albuterol sulfate 90 mcg/actuation Hfa Aerosol Inhaler 2 puff INHALATION .Q4-6H PRN (Reason: Shortness Of Breath) Stiolto Respimat 2.5-2.5 mcg/actuation Mist 2 puff INHALATION DAILY losartan 50 mg tablet 75 mg PO DAILY gabapentin 100 mg capsule 100 mg PO TID finasteride 5 mg tablet 5 mg PO BEDTIME acetaminophen 325 mg Tablet 325 mg PO Q3H PRN (Reason: Pain) Changed insulin glargine 100 unit/mL (3 mL) insulin pen 30 unit SUBCUT DAILY 30 Days Qty: 15 0RF insulin aspart U-100 [Novolog FlexPen U-100 Insulin] 100 unit/mL (3 mL) insulin pen See Rx Instructions .ROUTE .COMPLEX Qty: 15 2RF Dose Instruction: INJECT 20 UNITS UNDER THE SKIN THREE TIMES A DAY BEFORE MEALS ADMINISTER 10 MINUTES BEFORE FOOD DIRECTED. REFRIGERATE UN-OPENED PENS. DISCARD CARTRIDGE 28 DAYS AFTER OPENING. Rx Instructions: Inject, subcut, 3 times daily, after meals, based on low-dose sliding scale Discontinued aspirin 81 mg tablet,delayed release (DR/EC) 81 mg PO DAILY@12 Discharge Order = DC NOW: Discharge Order (Routine); Ordered 04/09/25 Ordered By: Ander Dos Santos Referrals: Shavonne Biswas MD [Primary Care Provider, Family Practice] - 04/16/25 11:00 am Lauren Maki FNP [Nurse Practitioner, Cardiology] - 04/29/25 8:30 am Discharge Diet: Usual diet Discharge Activity: Increase activity as tolerated Patient Instructions: Prednisone (By mouth), Amiodarone (By mouth), Cefdinir (By mouth), Apixaban (By mouth), Pain Management (DC), Urinary Tract Infection in Older Adults (ED), Opioid Safety, Pain Management, Patient Portal & [facility] Instructions Activity Restrictions/Additional Instructions: Thank you for choosing [facility] for your healthcare needs today. You have been screened and evaluated and felt safe for discharge. Health conditions do change or evolve sometimes and as such it is important that you follow up with your Primary Doctor to be re checked, 3-5 days is a general good time frame for follow up. You are always welcome to return to the ED for re assessment if your symptoms are worsening or you have new concerns -Please monitor your blood sugars closely -Monitor your blood sugars 3 times daily as after meals -Please record your blood sugars, and a blood sugar log -For your NovoLog -Please inject blood sugar after meals based on sliding scale provided -Do not inject insulin if you do not eat as hypoglycemia kills -This is a NovoLog sliding scale -Insulin sliding ?fingerstick? Insulin ?141-180?0 units/sq 181-220?2 units/sq ?221-260?4 units/sq ?261-300 6 units/sq ?301-350?8 units/sq ?351-400 10 units/sq ?401-450?12 units/sq >450? 14units/sq -If your blood sugar is greater than 500 go to the emergency room -If your blood sugar is less than 60 or at anytime you feel lightheaded or dizzy or diaphoretic or have chest palpitations check your blood sugar, and eat a hard candy or drink orange juice and go immediately to the emergency room -Remember hypoglycemia kills, so if his blood sugar is less than 60 we have to increase it by taking in a sugary meal such as a hard candy or orange juice and go to the emergency room -If you have any questions please call us where here to help Discharge Attestations Time Spent in Discharge Care*: greater than 30 min Quality Metrics Clinical Quality Measures [ No reported AMI, CVA or VTE this stay] Coding Level of Care Code 67389 Total time (in minutes) for Discharge: 45 Diagnoses Multifocal atrial tachycardia I47.19 Acute cystitis N30.00 Non-small cell lung cancer C34.90 Generalized pain R52
== END 2025-04-09 14:30 | disposition home or self-care (01) | DRG 308 ==
LOC: ER 11:37 → ER IP 12:57 → CSU 13:41
PROVIDERS: Nurse Practitioner Gerontology; Admitting Provider Internal Medicine; Emergency Provider Emergency Medicine; PCP Family Medicine; Visit Provider Family Medicine
DX: I48.91 Unspecified atrial fibrillation (principal); J96.21 Acute and chronic respiratory failure with hypoxia; C34.11 Malignant neoplasm of upper lobe, right bronchus or lung; N30.00 Acute cystitis without hematuria; C77.1 Secondary and unspecified malignant neoplasm of intrathoracic lymph nodes; C79.51 Secondary malignant neoplasm of bone; M84.58XA Pathological fracture in neoplastic disease, other specified site, initial encounter for fracture; E87.20 Acidosis, unspecified; E87.1 Hypo-osmolality and hyponatremia; I47.19 Other supraventricular tachycardia; I25.10 Atherosclerotic heart disease of native coronary artery without angina pectoris; Z95.5 Presence of coronary angioplasty implant and graft; E11.51 Type 2 diabetes mellitus with diabetic peripheral angiopathy without gangrene; G89.3 Neoplasm related pain (acute) (chronic); B96.1 Klebsiella pneumoniae [K. pneumoniae] as the cause of diseases classified elsewhere; I10 Essential (primary) hypertension; E03.9 Hypothyroidism, unspecified; N40.1 Benign prostatic hyperplasia with lower urinary tract symptoms; R33.8 Other retention of urine; E11.42 Type 2 diabetes mellitus with diabetic polyneuropathy; J43.9 Emphysema, unspecified; E11.65 Type 2 diabetes mellitus with hyperglycemia; R79.89 Other specified abnormal findings of blood chemistry; Z79.01 Long term (current) use of anticoagulants; Z79.02 Long term (current) use of antithrombotics/antiplatelets; Z79.84 Long term (current) use of oral hypoglycemic drugs; Z79.4 Long term (current) use of insulin; Z85.51 Personal history of malignant neoplasm of bladder; Z95.820 Peripheral vascular angioplasty status with implants and grafts; Z87.891 Personal history of nicotine dependence; Z95.828 Presence of other vascular implants and grafts; Z92.3 Personal history of irradiation; Z92.21 Personal history of antineoplastic chemotherapy; Z87.01 Personal history of pneumonia (recurrent); Z87.440 Personal history of urinary (tract) infections
CPT/HCPCS: 36415; 36416; 51798; 71045; 72100; 72131; 73030; 73521; 76770; 80048; 80053; 81001; 82962; 83605; 83735; 84484; 85025; 87040; 87077; 87086; 87186; 93005; 94660; 94664; 96365; 96372; 96375; 97116; 97161; 97165; 99285; A4222; G0378; J0282; J0283; J0696; J1100; J1171; J1650; J1815; J1885; J3490; J7030; J9999

== ENCOUNTER 2025-04-25 11:00 | Oncology outpatient (recurring) (ONCR) | payer OTHER, SELFPAY | END 2025-05-14 23:59 | disposition home or self-care (01) | LOC: RAD 04-26 → ONCMED 04-28 09:09 | PROVIDERS: PCP Family Medicine; Visit Provider Internal Medicine | DX: Z53.9 Procedure and treatment not carried out, unspecified reason (principal) | CPT/HCPCS: 99213 ==